=== PATIENT | female | born 1965 | race Caucasian/White ===

== ENCOUNTER → 2017-12-23 08:52 | Outpatient (REF) | payer MEDICARE, MEDICAID, SELFPAY ==
[2017-12-23 13:44] LABS: Basophils # 0.1 K/mm3 (0-0.2); Basophils % 0.5 % (0.1-2.0); Eosinophils # 0.2 K/mm3 (0.0-0.4); Eosinophils % 1.8 % (0.1-12.0); Hematocrit 43.2 % (37.0-47.0); Hemoglobin 13.9 g/dL (12.2-16.2); Lymphocytes # 2.4 K/mm3 (0.7-4.5); Lymphocytes % 25.2 K/mm3 (10-50); Mean Corpuscular HGB Conc 32.1 g/dL (31.8-35.4); Mean Corpuscular Hemoglobin 30.3 pg (27.0-31.2); Mean Corpuscular Volume 94.4 fl (81-99); Monocytes # 0.5 K/mm3 (0.1-1.0); Monocytes % 5.5 % (1.7-9.3); Neutrophils # 6.3 K/mm3 (1.8-7.8); Neutrophils % 66.9 % (37.0-80.0); Platelet Count 260 K/mm3 (142-424); Red Blood Count 4.57 M/mm3 (4.20-5.40); Red Cell Distribution Width 12.8 % (11.5-17.5); White Blood Count 9.5 K/mm3 (4.8-10.8)
[2017-12-23 14:18] LABS: Hemoglobin A1C 8.1 % (0.0-7.0)
[2017-12-23 14:23] LABS: Alanine Aminotransferase 22 U/L (12-78); Albumin Level 3.5 gm/dL (3.4-5.0); Albumin/Globulin Ratio 0.9 (1.1-1.8); Alkaline Phosphatase 100 U/L (46-116); Anion Gap 11.3 mEq/L (5-15); Aspartate Amino Transferase 13 U/L (15-37); Bilirubin,Total 0.3 mg/dL (0.2-1.0); Blood Urea Nitrogen 16 mg/dL (7-18); Calcium 9.3 mg/dL (8.5-10.1); Carbon Dioxide 32 mmol/L (21.0-32.0); Chloride 101 mmol/L (98-107); Chol/HDL Ratio 3.1 (1-3.5); Cholesterol 178 mg/dL (140-200); Creatinine,Serum 0.62 mg/dL (0.55-1.02); Estimated Glomerular Filt Rate 101 ml/min (>60); GFR (African American) 122 ML/MIN (>60); Globulin 3.7 gm/dl (1.3-3.2); Glucose 131 mg/dL (74-106); HDL Cholesterol 57 mg/dL (29-89); LDL Cholesterol 89 mg/dL (0-130); Potassium 4.3 mmoL/L (3.5-5.1); Sodium 140 mmol/L (136-145); Thyroid Stimulating Hormone 3.47 uIU/ml (0.358-3.740); Total Protein,Serum 7.2 gm/dL (6.4-8.2); Triglycerides 158 mg/dL (30-200); VLDL Cholesterol 32 mg/dL (0-40)
[2017-12-26 12:03] LABS: Vitamin D 25 Hydroxy 26.2 ng/mL (30.0-100.0)
== END ==
LOC: LAB 08:52
PROVIDERS: Visit Provider Physician Assistant
DX: E11.9 Type 2 diabetes mellitus without complications (principal); I77.9 Disorder of arteries and arterioles, unspecified; F41.9 Anxiety disorder, unspecified; E55.9 Vitamin D deficiency, unspecified; E78.5 Hyperlipidemia, unspecified
CPT/HCPCS: 80053; 80061; 82652; 83036; 84436; 84443; 85025

== ENCOUNTER → 2018-05-27 15:00 | Outpatient (CLI) | payer MEDICARE, MEDICAID, SELFPAY ==
--- NOTE | 2018-05-27 15:36 | XR_ITS ---
EXAM: XR lumbar spine min 4V HISTORY: Patient fell ITS.REASON: Fall; LBP ORDERING PHYSICIAN: KEYLA Ochoa PATIENT AGE: 52 years COMPARISON: Lumbar spine 08/23/2010 FINDINGS: There is normal curvature and alignment. L1-L5 appear intact. There is disc space narrowing at L5-S1 level with mild anterior and posterior ossific spurring. The remaining disc spaces appear normal. There is no pars defect. The SI joints are normal. There is arteriosclerotic calcification of the abdominal aorta but there is no aneurysm. There is mild spurring of the sacrococcygeal junction. IMPRESSION: Mild degenerative disc disease L5-S1, otherwise essentially unremarkable study.
--- NOTE | 2018-05-27 15:36 | XR_ITS ---
XR chest 2V HISTORY: ITS.REASON: Smoker ORDERING PHYSICIAN: KEYLA Ochoa PATIENT AGE: 52 years COMPARISON: Portable upright chest 05/16/2016 FINDINGS: The cardiomediastinal silhouette and pulmonary vascularity are within normal limits. The lungs are clear without infiltrates, suspicious nodules, or pleural effusions. No acute bony abnormalities. IMPRESSION: Negative chest, no acute finding
[2018-05-27 17:42] LABS: Basophils # 0.1 K/mm3 (0-0.2); Basophils % 0.5 % (0.1-2.0); Eosinophils # 0.2 K/mm3 (0.0-0.4); Eosinophils % 2.5 % (0.1-12.0); Hematocrit 43.1 % (37.0-47.0); Hemoglobin 13.7 g/dL (12.2-16.2); Lymphocytes # 2.3 K/mm3 (0.7-4.5); Lymphocytes % 24.6 K/mm3 (10-50); Mean Corpuscular HGB Conc 31.8 g/dL (31.8-35.4); Mean Corpuscular Volume 94.2 fl (81-99); Mean Platelet Volume 9.1 fl (7.4-10.4); Monocytes # 0.4 K/mm3 (0.1-1.0); Monocytes % 4.7 % (1.7-9.3); Neutrophils # 6.3 K/mm3 (1.8-7.8); Neutrophils % 67.7 % (37.0-80.0); Platelet Count 287 K/mm3 (142-424); Red Blood Count 4.58 M/mm3 (4.20-5.40); Red Cell Distribution Width 13.5 % (11.5-17.5); White Blood Count 9.3 K/mm3 (4.8-10.8)
[2018-05-27 18:33] LABS: Alanine Aminotransferase 21 U/L (12-78); Albumin Level 3.4 gm/dL (3.4-5.0); Albumin/Globulin Ratio 0.9 (1.1-1.8); Alkaline Phosphatase 112 U/L (46-116); Anion Gap 10.9 mEq/L (5-15); Aspartate Amino Transferase 16 U/L (15-37); Bilirubin,Total 0.4 mg/dL (0.2-1.0); Blood Urea Nitrogen 18 mg/dL (7-18); Carbon Dioxide 31 mmol/L (21.0-32.0); Chloride 101 mmol/L (98-107); Chol/HDL Ratio 3.1 (1-3.5); Cholesterol 179 mg/dL (140-200); Creatinine,Serum 0.75 mg/dL (0.55-1.02); Estimated Glomerular Filt Rate 81 ml/min (>60); GFR (African American) 98 ML/MIN (>60); Globulin 3.8 gm/dl (1.3-3.2); Glucose 167 mg/dL (74-106); HDL Cholesterol 57 mg/dL (29-89); LDL Cholesterol 100 mg/dL (0-130); Potassium 3.9 mmoL/L (3.5-5.1); Sodium 139 mmol/L (136-145); T4 (Thyroxine) 7.7 ug/dl (4.7-13.3); Thyroid Stimulating Hormone 1.69 uIU/ml (0.358-3.740); Total Protein,Serum 7.2 gm/dL (6.4-8.2); Triglycerides 112 mg/dL (30-200); VLDL Cholesterol 22 mg/dL (0-40)
[2018-05-27 19:44] LABS: Hemoglobin A1C 8.9 % (0.0-7.0)
[2018-05-29 17:09] LABS: Vitamin D 25 Hydroxy 21.6 ng/mL (30.0-100.0)
== END ==
PROVIDERS: PCP Physician Assistant; Visit Provider Physician Assistant
DX: R09.02 Hypoxemia (principal); E11.40 Type 2 diabetes mellitus with diabetic neuropathy, unspecified; E11.9 Type 2 diabetes mellitus without complications; F17.200 Nicotine dependence, unspecified, uncomplicated; M54.5 Low back pain
CPT/HCPCS: 71046; 72110; 80053; 80061; 82652; 83036; 84436; 84443; 85025

== ENCOUNTER → 2018-09-02 13:31 | Outpatient (REF) | payer MEDICARE, MEDICAID, SELFPAY ==
[2018-09-02 14:01] LABS: Alanine Aminotransferase 20 U/L (12-78); Albumin Level 3.3 gm/dL (3.4-5.0); Albumin/Globulin Ratio 0.9 (1.1-1.8); Alkaline Phosphatase 122 U/L (46-116); Anion Gap 11.4 mEq/L (5-15); Aspartate Amino Transferase 17 U/L (15-37); Bilirubin,Total 0.3 mg/dL (0.2-1.0); Blood Urea Nitrogen 23 mg/dL (7-18); Calcium 8.9 mg/dL (8.5-10.1); Carbon Dioxide 33 mmol/L (21.0-32.0); Chloride 99 mmol/L (98-107); Chol/HDL Ratio 3.2 (1-3.5); Cholesterol 200 mg/dL (140-200); Creatinine,Serum 0.93 mg/dL (0.55-1.02); Estimated Glomerular Filt Rate 63 ml/min (>60); Free T4 (Free Thyroxine) 1.03 ng/dl (0.76-1.46); GFR (African American) 77 ML/MIN (>60); Globulin 3.8 gm/dl (1.3-3.2); Glucose 172 mg/dL (74-106); HDL Cholesterol 62 mg/dL (29-89); LDL Cholesterol 118 mg/dL (0-130); Potassium 4.4 mmoL/L (3.5-5.1); Sodium 139 mmol/L (136-145); Thyroid Stimulating Hormone 3.25 uIU/ml (0.358-3.740); Total Protein,Serum 7.1 gm/dL (6.4-8.2); Triglycerides 99 mg/dL (30-200); VLDL Cholesterol 20 mg/dL (0-40)
[2018-09-02 14:22] LABS: Basophils # 0.1 K/mm3 (0-0.2); Basophils % 0.7 % (0.1-2.0); Eosinophils # 0.3 K/mm3 (0.0-0.4); Eosinophils % 2.7 % (0.1-12.0); Hematocrit 41.2 % (37.0-47.0); Hemoglobin 13.3 g/dL (12.2-16.2); Lymphocytes # 1.6 K/mm3 (0.7-4.5); Lymphocytes % 17.8 K/mm3 (10-50); Mean Corpuscular HGB Conc 32.4 g/dL (31.8-35.4); Mean Corpuscular Hemoglobin 31.4 pg (27.0-31.2); Mean Corpuscular Volume 96.9 fl (81-99); Mean Platelet Volume 8.9 fl (7.4-10.4); Monocytes # 0.4 K/mm3 (0.1-1.0); Monocytes % 3.8 % (1.7-9.3); Neutrophils # 6.9 K/mm3 (1.8-7.8); Neutrophils % 74.9 % (37.0-80.0); Platelet Count 298 K/mm3 (142-424); Red Blood Count 4.26 M/mm3 (4.20-5.40); Red Cell Distribution Width 13.8 % (11.5-17.5); White Blood Count 9.1 K/mm3 (4.8-10.8)
[2018-09-04 06:44] LABS: Vitamin D 25 Hydroxy 30.7 ng/mL (30.0-100.0)
== END ==
LOC: LAB 13:31
PROVIDERS: PCP Physician Assistant; Visit Provider Physician Assistant
DX: E11.40 Type 2 diabetes mellitus with diabetic neuropathy, unspecified (principal); I83.93 Asymptomatic varicose veins of bilateral lower extremities
CPT/HCPCS: 80053; 80061; 82652; 83036; 84439; 84443; 85025

== ENCOUNTER → 2018-09-08 12:50 | Outpatient (POV) | payer MEDICARE, MEDICAID, SELFPAY | PROVIDERS: Visit Provider Internal Medicine | DX: Z00.00 Encounter for general adult medical examination without abnormal findings (principal) ==

== ENCOUNTER → 2018-10-28 08:58 | Outpatient (CLI) | payer MEDICARE, MEDICAID, SELFPAY ==
--- NOTE | 2018-10-28 09:04 | CT_ITS ---
CT chest wo con HISTORY: Cough, dark-colored productive cough, COPD, smoker ITS.REASON: CHRONIC BRONCHITIS,DYSPNEA,HEMOPTYSIS ORDERING PHYSICIAN: Maico Valentino MD PATIENT AGE: 52 years COMPARISON: None Technique: Axial images obtained with sagittal and coronal reformats. All CT scans at the facility use one or more dose reduction, viz: automated exposure control, ma/kV adjustment per patient size (including targeted exams where dose is matched to indication, i.e. head), or iterative reconstruction technique. FINDINGS: There is a 2 cm isodense nodule along the lower pole of the right lobe of the thyroid gland which may be better byway with ultrasound. There is extensive coronary artery calcification. No mediastinal or hilar mass or adenopathy is evident. No evidence of aortic aneurysm. 4 mm noncalcified nodule right lung base posteriorly image #57. There are scattered calcified granulomas. No suspicious pulmonary nodules. There is mild diffuse bronchial thickening. No effusions or infiltrates. Upper abdominal images are unremarkable. No acute bony anomalies. There is mild wedging of T7 and T8 which appears chronic. There are degenerative changes in the thoracic spine. IMPRESSION: 1. Mild diffuse bronchial thickening consistent with chronic bronchitis. 2. No suspicious pulmonary nodules. There is a 4 mm noncalcified nodule in the right lung base posteriorly. 3. Extensive coronary artery calcification. 4. 2 cm right-sided thyroid nodule which may be better evaluated with ultrasound
[2018-10-28 10:35] VITALS: PULSE 68; PULSE 70
[2018-10-28 10:55] VITALS: BP 130/88; BP 150/85; PULSE 68; PULSE 86; RESP 14; RESP 20; O2SAT 94; O2SAT 95
== END ==
PROVIDERS: PCP Physician Assistant; Visit Provider Internal Medicine
DX: R06.09 Other forms of dyspnea (principal); R04.2 Hemoptysis; J42 Unspecified chronic bronchitis
CPT/HCPCS: 71250; 94060; 94618; 94640; 94727; 94729

== ENCOUNTER → 2018-11-17 10:59 | Outpatient (CLI) | payer MEDICARE, MEDICAID, SELFPAY ==
--- NOTE | 2018-11-17 11:04 | US_ITS ---
US thyroid HISTORY: Right thyroid nodule ITS.REASON: thyroid nodule ORDERING PHYSICIAN: KEYLA Ochoa PATIENT AGE: 52 years Comparison: 10/28/2018 FINDINGS: The right lobe measures 4.9-4 0.9 x 1.7 cm. There is a slightly hypoechoic nodule in the mid polar region at 7 x 10 mm. This shows increased echogenicity anteriorly consistent with partial calcification of the anterior wall. There is a 15 x 15 mm isoechoic nodule in the lower lobe with peripheral rim of decreased echogenicity corresponding to the CT abnormality. The left lobe is 4.1 x 1.4 x 1.7 cm. There is a 4 mm hypoechoic nodule in the mid polar region. There is heterogeneous echogenicity of the left lobe. There is a 2.2 x 1.1 cm slightly hypoechoic nodule in the lower pole on the left. IMPRESSION: 1. Enlarged right lobe of the thyroid gland with 2 nodules apparent largest in the lower pole 15 mm. 2. 2.2 x 1.1 cm hypoechoic nodule in the lower pole of the left lobe. Biopsy of these nodules would be difficult due to patient's body habitus. Therefore a nuclear thyroid scan is suggested to determine if these nodules are hypoechoic or hyperreactive. If hypoactive, then biopsy may be planned accordingly
== END ==
PROVIDERS: PCP Physician Assistant; Visit Provider Physician Assistant
DX: E04.1 Nontoxic single thyroid nodule (principal)
CPT/HCPCS: 76536

== ENCOUNTER → 2018-12-01 11:28 | Outpatient (POV) | payer MEDICARE, MEDICAID, SELFPAY | PROVIDERS: Visit Provider Internal Medicine | DX: Z00.00 Encounter for general adult medical examination without abnormal findings (principal) ==

== ENCOUNTER → 2018-12-02 07:01 | Outpatient (CLI) | payer MEDICARE, MEDICAID, SELFPAY ==
--- NOTE | 2018-12-02 07:02 | NM_ITS ---
NM thyroid image uptake CLINICAL INDICATION: ITS.REASON: thyroid nodules/ pt need morning appt ORDERING PHYSICIAN: KEYLA Ochoa PATIENT AGE: 52 years Comparison: 11/17/2018 DOSE: 344 uCi I-123 orally FINDINGS: The 25 hour radioiodine uptake is 32.6%. Normal is 10-35%. Images obtained enlarged gland on the right with decrease activity in the central and lower pole on the right. This would correspond to the dominant nodule in the right lobe indicating a hypoactive nodule.. Fine-needle aspiration is therefore recommended of the right lower pole nodule There is normal activity on the left with normal size left lobe. The abnormality noted on ultrasound millimeters heterogeneous echogenicity and can be reexamined when the patient returns for biopsy IMPRESSION: Right lower pole nodule seen on the ultrasound and CT scan represents a hypoactive nodule. Fine-needle aspiration therefore recommended
[2018-12-02 14:45] LABS: Basophils # 0.1 K/mm3 (0-0.2); Basophils % 0.5 % (0.1-2.0); Eosinophils # 0.2 K/mm3 (0.0-0.4); Eosinophils % 1.4 % (0.1-12.0); Hematocrit 44.8 % (37.0-47.0); Hemoglobin 14.1 g/dL (12.2-16.2); Mean Corpuscular HGB Conc 31.5 g/dL (31.8-35.4); Mean Corpuscular Hemoglobin 30.1 pg (27.0-31.2); Mean Corpuscular Volume 95.5 fl (81-99); Mean Platelet Volume 9.2 fl (7.4-10.4); Monocytes # 0.5 K/mm3 (0.1-1.0); Monocytes % 4.3 % (1.7-9.3); Neutrophils % 74.7 % (37.0-80.0); Platelet Count 271 K/mm3 (142-424); Red Blood Count 4.69 M/mm3 (4.20-5.40); Red Cell Distribution Width 13.4 % (11.5-17.5); White Blood Count 10.7 K/mm3 (4.8-10.8)
[2018-12-02 14:56] LABS: Alanine Aminotransferase 23 U/L (12-78); Albumin Level 3.3 gm/dL (3.4-5.0); Albumin/Globulin Ratio 0.8 (1.1-1.8); Alkaline Phosphatase 118 U/L (46-116); Anion Gap 14.4 mEq/L (5-15); Aspartate Amino Transferase 12 U/L (15-37); Bilirubin,Total 0.2 mg/dL (0.2-1.0); Blood Urea Nitrogen 16 mg/dL (7-18); Calcium 8.7 mg/dL (8.5-10.1); Carbon Dioxide 31 mmol/L (21.0-32.0); Chloride 95 mmol/L (98-107); Chol/HDL Ratio 4.2 (1-3.5); Cholesterol 219 mg/dL (140-200); Creatinine,Serum 0.85 mg/dL (0.55-1.02); Estimated Glomerular Filt Rate 70 ml/min (>60); GFR (African American) 85 ML/MIN (>60); Globulin 4.2 gm/dl (1.3-3.2); Glucose 334 mg/dL (74-106); HDL Cholesterol 52 mg/dL (29-89); LDL Cholesterol 133 mg/dL (0-130); Potassium 3.4 mmoL/L (3.5-5.1); Sodium 137 mmol/L (136-145); T4 (Thyroxine) 9.5 ug/dl (4.7-13.3); Thyroid Stimulating Hormone 2.71 uIU/ml (0.358-3.740); Total Protein,Serum 7.5 gm/dL (6.4-8.2); Triglycerides 171 mg/dL (30-200); VLDL Cholesterol 34 mg/dL (0-40)
[2018-12-02 15:30] LABS: Hemoglobin A1C 9.9 % (0.0-7.0)
== END ==
PROVIDERS: PCP Physician Assistant; Visit Provider Physician Assistant
DX: E04.1 Nontoxic single thyroid nodule (principal); E11.40 Type 2 diabetes mellitus with diabetic neuropathy, unspecified; E07.9 Disorder of thyroid, unspecified; E78.49 Other hyperlipidemia; I25.10 Atherosclerotic heart disease of native coronary artery without angina pectoris; Z79.4 Long term (current) use of insulin; Z72.0 Tobacco use
CPT/HCPCS: 78014; 80053; 80061; 82043; 82570; 82652; 83036; 84436; 84443; 85025; A9516

== ENCOUNTER → 2018-12-02 13:32 | Outpatient (CLI) | payer MEDICARE, MEDICAID, SELFPAY | PROVIDERS: Visit Provider Physician Assistant | DX: E07.9 Disorder of thyroid, unspecified (principal); E11.9 Type 2 diabetes mellitus without complications | CPT/HCPCS: 80053; 80061; 82043; 82570; 82652; 83036; 84436; 84443; 85025 ==

== ENCOUNTER → 2018-12-10 08:00 | Outpatient (CLI) | payer MEDICARE, MEDICAID, SELFPAY ==
--- NOTE | 2018-12-10 08:03 | US_ITS ---
US Arterial Ankle Brachial Ind History: Peripheral artery disease, rest pain, claudication, ulceration of the right great toe ORDERING PHYSICIAN: Yasmani Contreras MD PATIENT AGE: 52 years TECHNIQUE: Segmental pressures obtained of both right and left leg. These are compared to brachial blood pressure to yield index at each level sampled including summary NICOLAS. The data sheets from the procedure are available in PACS FINDINGS Rest study only performed today No prior studies available for comparison. Blood pressures reported are in millimeters mercury. RIGHT LEG NICOLAS = .6. RIGHT LEG TBI=.5 Brachial BP: 141 Thigh BP: 160 Calf BP: 116 Ankle PT: 104 Ankle DP : 85 Digit =82 LEFT LEG NICOLAS = .5 LEFT LEG TBI= na Brachial BPD: 153 Thigh BP: 60 Calf BP: 85 Ankle PT:72 Ankle DP: 72 Digit = na Pulses and waveforms: Diminished pulses and waveforms IMPRESSION: Low ABIs consistent with moderate peripheral artery disease Significant decrease in the left thigh pressure suggesting a stenosis of the iliac, common femoral or proximal superficial femoral artery
[2018-12-10 10:32] LABS: Alanine Aminotransferase 19 U/L (12-78); Alkaline Phosphatase 117 U/L (46-116); Aspartate Amino Transferase 19 U/L (15-37); Bilirubin,Direct 0.1 mg/dL (0.0-0.2); Bilirubin,Indirect 0.2 mg/dL (0.0-0.9); Bilirubin,Total 0.3 mg/dL (0.2-1.0); Cholesterol 226 mg/dL (140-200); HDL Cholesterol 45 mg/dL (29-89); LDL Cholesterol 151 mg/dL (0-130); Triglycerides 151 mg/dL (30-200); VLDL Cholesterol 30 mg/dL (0-40)
[2018-12-12 12:57] LABS: Thyroid Peroxidase Antibodies 20 IU/mL (0-34)
[2018-12-12 19:31] LABS: Calcium, Ionized 5.1 mg/dL (4.5-5.6)
== END ==
PROVIDERS: Nurse Practitioner Family; Otolaryngology; PCP Emergency Medicine; Visit Provider Internal Medicine
DX: I73.9 Peripheral vascular disease, unspecified (principal); E11.42 Type 2 diabetes mellitus with diabetic polyneuropathy; E78.49 Other hyperlipidemia; I11.9 Hypertensive heart disease without heart failure; I25.10 Atherosclerotic heart disease of native coronary artery without angina pectoris; E01.0 Iodine-deficiency related diffuse (endemic) goiter
CPT/HCPCS: 36415; 80061; 80076; 82330; 86376; 93922

== ENCOUNTER → 2018-12-24 12:03 | Outpatient (CLI) | payer MEDICARE, MEDICAID, SELFPAY ==
--- NOTE | 2018-12-24 12:05 | NVE_ITS ---
Venous Exam Indications: 729.5 Pain in limb. 729.81 Swelling of limb. IMPRESSIONS 1. There is no evidence of significant Reflux. 2. No evidence of deep or superficial vein thrombosis involving the left lower extremity Left lower extremity venous duplex evaluation. Doppler flow study including spectral analysis, color and moss scale imaging. Location: Vascular laboratory. Patient status: Outpatient. CRITICAL FINDINGS - Reported to: ZULY - Read back and verified. - 12/24/18 - 1230 - NONE Tables: Venous flow and imaging: + +-------+ + Location Overall Flow properties + +-------+ + Left common femoral Patent Normal phasicity; spontaneous; normal augmentation; compressible + +-------+ + Left saphenofemoral junction Patent Compressible + +-------+ + Left profunda femoral Patent Compressible + +-------+ + Left femoral Patent Normal phasicity; spontaneous; normal augmentation; compressible + +-------+ + Left greater saphenous Patent Normal phasicity; spontaneous; normal augmentation; compressible + +-------+ + Left popliteal Patent Normal phasicity; spontaneous; normal augmentation; compressible + +-------+ + Left posterior tibial Patent Compressible + +-------+ + Left peroneal Patent Compressible + +-------+ + Left gastrocnemius Patent Compressible + +-------+ + Left soleal Patent Compressible + +-------+ + (Report amended ) Electronically signed by: Jamison Jj [id number]
== END ==
PROVIDERS: PCP Physician Assistant; Visit Provider Internal Medicine Cardiovascular Disease
DX: E11.42 Type 2 diabetes mellitus with diabetic polyneuropathy (principal); F17.200 Nicotine dependence, unspecified, uncomplicated; I11.9 Hypertensive heart disease without heart failure; I25.10 Atherosclerotic heart disease of native coronary artery without angina pectoris; I73.9 Peripheral vascular disease, unspecified; I77.9 Disorder of arteries and arterioles, unspecified; I83.813 Varicose veins of bilateral lower extremities with pain; J44.1 Chronic obstructive pulmonary disease with (acute) exacerbation; M79.605 Pain in left leg; M79.89 Other specified soft tissue disorders; R06.02 Shortness of breath; E78.49 Other hyperlipidemia
CPT/HCPCS: 93971

== ENCOUNTER → 2019-01-19 10:22 | Outpatient (CLI) | payer MEDICARE, MEDICAID, SELFPAY ==
--- NOTE | 2019-01-19 10:27 | US_ITS ---
FNA w guidance Thyroid ultrasound HISTORY: Cold nodule in the right lobe of the thyroid gland ITS.REASON: RT THYROID NODULE ORDERING PHYSICIAN: Oz Giang MD PATIENT AGE: 53 years COMPARISON: 11/17/2018, 12/02/2018 Prebiopsy ultrasound: Prebiopsy ultrasound confirms presence of a solid nodule in the lower pole on the right which correspond to the cold nodule on the thyroid scan. On the previous ultrasound there was a question of a nodule on the lower pole on the left. This area is once again noted and is isoechoic in nature. It is uncertain whether this represents medially some heterogeneous echogenicity of the thyroid gland or a true nodule. Consider follow-up CT of the neck without and with contrast for further evaluation and clarification. TECHNIQUE: Following obtaining informed consent, using aseptic technique and local anesthesia with buffered lidocaine, fine-needle aspiration was performed of the nodule of interest in the right lobe using sonographic guidance. 3 passes were made into the nodule with a 25-gauge needle. Specimen was given to cytology. The patient tolerated the procedure well without evidence of immediate complications and left the ultrasound suite in stable condition. CYTOLOGY:Negative for malignancy, consistent with benign follicular nodule IMPRESSION: 1. Uneventful and successful ultrasound-guided fine-needle aspiration of the right lobe of the thyroid gland showing benign findings. 2. Persistent nodularity of the mid and lower pole of the left lobe of the thyroid gland. It is uncertain whether this represents a true nodule versus heterogeneous echogenicity. Recommend CT of the neck without and with contrast for further clarification
== END ==
PROVIDERS: PCP Physician Assistant; Visit Provider Otolaryngology
DX: E01.0 Iodine-deficiency related diffuse (endemic) goiter (principal)
CPT/HCPCS: 10005; 88173

== ENCOUNTER → 2019-01-28 15:53 | Outpatient (CLI) | payer MEDICARE, MEDICAID, SELFPAY ==
[2019-01-28 17:01] LABS: Free T4 (Free Thyroxine) 0.97 ng/dl (0.76-1.46); Thyroid Stimulating Hormone 2.35 uIU/ml (0.358-3.740)
[2019-02-01 08:19] LABS: Thyroid Peroxidase Antibodies 11 IU/mL (0-34)
[2019-02-01 08:25] LABS: Calcitonin <2.0 pg/mL (0.0-5.0)
[2019-02-02 06:47] LABS: Thyroid Stimulating Immunoglob <0.10 IU/L (0.00-0.55)
== END ==
PROVIDERS: Visit Provider Otolaryngology
DX: E03.9 Hypothyroidism, unspecified (principal)
CPT/HCPCS: 36415; 82308; 84439; 84443; 84445; 86376

== ENCOUNTER → 2019-02-18 11:06 | Outpatient (CLI) | payer MEDICARE, MEDICAID, SELFPAY ==
[2019-02-18 11:24] LABS: Basophils % 0.6 % (0.1-2.0); Eosinophils # 0.2 K/mm3 (0.0-0.4); Eosinophils % 3.3 % (0.1-12.0); Hematocrit 43.5 % (37.0-47.0); Hemoglobin 14.1 g/dL (12.2-16.2); Lymphocytes # 2.1 K/mm3 (0.7-4.5); Mean Corpuscular HGB Conc 32.4 g/dL (31.8-35.4); Mean Corpuscular Hemoglobin 29.4 pg (27.0-31.2); Mean Corpuscular Volume 90.6 fl (81-99); Mean Platelet Volume 8.6 fl (7.4-10.4); Monocytes # 0.4 K/mm3 (0.1-1.0); Monocytes % 5.9 % (1.7-9.3); Neutrophils # 4.2 K/mm3 (1.8-7.8); Neutrophils % 60.2 % (37.0-80.0); Platelet Count 250 K/mm3 (142-424); Red Cell Distribution Width 14.1 % (11.5-17.5); White Blood Count 6.9 K/mm3 (4.8-10.8)
[2019-02-18 12:22] LABS: Alanine Aminotransferase 22 U/L (12-78); Albumin Level 3.2 gm/dL (3.4-5.0); Albumin/Globulin Ratio 0.7 (1.1-1.8); Alkaline Phosphatase 138 U/L (46-116); Anion Gap 15.7 mEq/L (5-15); Aspartate Amino Transferase 17 U/L (15-37); Bilirubin,Total 0.2 mg/dL (0.2-1.0); Blood Urea Nitrogen 17 mg/dL (7-18); Calcium 9.2 mg/dL (8.5-10.1); Carbon Dioxide 29 mmol/L (21.0-32.0); Chloride 96 mmol/L (98-107); Creatinine,Serum 0.74 mg/dL (0.55-1.02); Estimated Glomerular Filt Rate 82 ml/min (>60); GFR (African American) 99 ML/MIN (>60); Globulin 4.6 gm/dl (1.3-3.2); Glucose 242 mg/dL (74-106); Potassium 4.7 mmoL/L (3.5-5.1); Sodium 136 mmol/L (136-145); Total Protein,Serum 7.8 gm/dL (6.4-8.2)
== END ==
PROVIDERS: Visit Provider Otolaryngology
DX: Z01.810 Encounter for preprocedural cardiovascular examination (principal)
CPT/HCPCS: 36415; 80053; 85025

== ENCOUNTER → 2019-03-18 11:21 | Outpatient (CLI) | payer MEDICARE, MEDICAID, SELFPAY ==
[2019-03-18 13:36] LABS: Free T4 (Free Thyroxine) 1.27 ng/dl (0.76-1.46); Thyroid Stimulating Hormone 2.57 uIU/ml (0.358-3.740)
== END ==
PROVIDERS: Visit Provider Otolaryngology
DX: D49.7 Neoplasm of unspecified behavior of endocrine glands and other parts of nervous system (principal); Z98.890 Other specified postprocedural states
CPT/HCPCS: 36415; 84439; 84443

== ENCOUNTER → 2019-07-21 17:59 | Outpatient (CLI) | payer MEDICARE, MEDICAID, SELFPAY ==
[2019-07-21 18:26] LABS: Basophils # 0.1 K/mm3 (0-0.2); Basophils % 0.6 % (0.1-2.0); Eosinophils # 0.2 K/mm3 (0.0-0.4); Eosinophils % 1.9 % (0.1-12.0); Hematocrit 44.7 % (37.0-47.0); Hemoglobin 14.6 g/dL (12.2-16.2); Lymphocytes # 2.8 K/mm3 (0.7-4.5); Lymphocytes % 33.4 % (10-50); Mean Corpuscular HGB Conc 32.6 g/dL (31.8-35.4); Mean Corpuscular Volume 95.2 fl (81-99); Mean Platelet Volume 9.4 fl (7.4-10.4); Monocytes # 0.4 K/mm3 (0.1-1.0); Monocytes % 5.1 % (1.7-9.3); Neutrophils # 4.9 K/mm3 (1.8-7.8); Platelet Count 320 K/mm3 (142-424); Red Blood Count 4.69 M/mm3 (4.20-5.40); Red Cell Distribution Width 14.8 % (11.5-17.5); White Blood Count 8.3 K/mm3 (4.8-10.8)
[2019-07-21 18:47] LABS: Alanine Aminotransferase 30 U/L (12-78); Albumin Level 3.1 gm/dL (3.4-5.0); Albumin/Globulin Ratio 0.8 (1.1-1.8); Alkaline Phosphatase 103 U/L (46-116); Anion Gap 13.8 mEq/L (5-15); Aspartate Amino Transferase 32 U/L (15-37); Bilirubin,Total 0.3 mg/dL (0.2-1.0); Blood Urea Nitrogen 19 mg/dL (7-18); Calcium 9.1 mg/dL (8.5-10.1); Carbon Dioxide 30 mmol/L (21.0-32.0); Chloride 97 mmol/L (98-107); Chol/HDL Ratio 5.5 (1-3.5); Cholesterol 264 mg/dL (140-200); Creatinine,Serum 0.98 mg/dL (0.55-1.02); Estimated Glomerular Filt Rate 59 ml/min (>60); GFR (African American) 72 ML/MIN (>60); Glucose 347 mg/dL (74-106); HDL Cholesterol 48 mg/dL (29-89); LDL Cholesterol 168 mg/dL (0-130); Potassium 3.8 mmoL/L (3.5-5.1); Sodium 137 mmol/L (136-145); T4 (Thyroxine) 7.5 ug/dl (4.7-13.3); Thyroid Stimulating Hormone 10.13 uIU/ml (0.358-3.740); Total Protein,Serum 7.1 gm/dL (6.4-8.2); Triglycerides 238 mg/dL (30-200); VLDL Cholesterol 48 mg/dL (0-40)
[2019-07-21 18:53] LABS: Hemoglobin A1C 10.8 % (0.0-7.0)
[2019-07-23 10:10] LABS: Vitamin D 25 Hydroxy 11.7 ng/mL (30.0-100.0)
== END ==
PROVIDERS: Visit Provider Physician Assistant
DX: E11.9 Type 2 diabetes mellitus without complications (principal); E78.5 Hyperlipidemia, unspecified; E55.9 Vitamin D deficiency, unspecified; Z79.4 Long term (current) use of insulin; Z79.84 Long term (current) use of oral hypoglycemic drugs
CPT/HCPCS: 80053; 80061; 82652; 83036; 84436; 84443; 85025

== ENCOUNTER 2019-11-08 13:03 | Outpatient (RCR) | payer MEDICARE, SELFPAY ==
--- NOTE | 2019-11-08 14:24 | [facility].PTOPWND ---
Rehab Outpt Wound Evaluation Rehab OP Wound Evaluation Start: 11/08/19 13:10 Freq: Status: Active Protocol: Document 11/08/19 14:01 PHOCHEL (Rec: 11/08/19 14:23 PHORNE [id number]) Electronically Signed By Home Drew, PT 11/08/19 14:01 Subjective/History History History Pt is 53 yowf who presents with c/o left LE edema x ~ 4-5 wks. She reports increased stress and anxiety lately which preceded a CVA she suffered ~ 2 wks ago with blurry vision and weakness of her right LE. She has hx of severe PAD with left LE stents and angiopathy, as well as, left great toe amputation. She also has hx of COPD, CAD, DM- II, HL, HTN, severe peripheral neuropathy, cardiac stents. Subjective Subjective Pt c/o pain in the left LE 7/ 10 constantly . Pt also reports concern about increased redness in the left foot after her foot was wrapped tightly with coban at her last DPM visit. Lymphedema Eval Classification of Lymphedema Secondary Lymphedema Yes Stemmer's sign Stemmer's Sign no Stage of Lymphedema Lymphedema stages Stage 0 (subjective c/o heaviness and aching) Skin Changes Dry Skin Yes Taut, Shiny Skin Yes Redness Yes Discoloration of Skin Yes Other Changes Yes Pain Scale Pain Scale (0-10) 7 Affected Extremities Areas Affected by Lymphedema/Edema Left Lower Extremity Manual Lymphatic Drainage Treatment Area MLD Treatment Area Left Lower Extremity Wound Problems/Impairments Impairments Problems/Impairmments Palpation Tenderness,Impaired Endurance,Impaired Gait Pattern,Impaired Walking, Impaired Standing,Impaired Household Care,Impaired Recreational Activities, Increased Edema,Lymphedema Present,Subjective C/O Pain, Impaired Self Care/Self Management Prognosis Rehab Potential Fair Clinical Impression Consistent with Diagnosis Yes Short Term Goals
== END 2019-11-08 13:10 | disposition home or self-care (01) ==
LOC: PT 13:03
PROVIDERS: Visit Provider Podiatrist
DX: R60.0 Localized edema (principal)
CPT/HCPCS: 97140; 97163; 97760

== ENCOUNTER → 2019-12-06 13:44 | Outpatient (CLI) | payer MEDICARE, SELFPAY ==
[2019-12-06 14:25] LABS: Basophils # 0.1 K/mm3 (0-0.2); Basophils % 1.1 % (0.1-2.0); Eosinophils # 0.2 K/mm3 (0.0-0.4); Hemoglobin 15.3 g/dL (12.2-16.2); Lymphocytes # 2.4 K/mm3 (0.7-4.5); Lymphocytes % 30.5 % (10-50); Mean Corpuscular HGB Conc 31.9 g/dL (31.8-35.4); Mean Corpuscular Hemoglobin 30.9 pg (27.0-31.2); Mean Corpuscular Volume 96.7 fl (81-99); Mean Platelet Volume 10.1 fl (7.4-10.4); Monocytes # 0.5 K/mm3 (0.1-1.0); Neutrophils # 4.7 K/mm3 (1.8-7.8); Neutrophils % 59.4 % (37.0-80.0); Platelet Count 287 K/mm3 (142-424); Red Blood Count 4.96 M/mm3 (4.20-5.40); Red Cell Distribution Width 12.7 % (11.5-17.5); White Blood Count 7.9 K/mm3 (4.8-10.8)
[2019-12-06 14:27] LABS: Alanine Aminotransferase 16 U/L (12-78); Albumin Level 3.1 gm/dL (3.4-5.0); Albumin/Globulin Ratio 0.8 (1.1-1.8); Alkaline Phosphatase 88 U/L (46-116); Anion Gap 15.3 mEq/L (5-15); Aspartate Amino Transferase 17 U/L (15-37); Bilirubin,Total 0.3 mg/dL (0.2-1.0); Blood Urea Nitrogen 14 mg/dL (7-18); Calcium 9.2 mg/dL (8.5-10.1); Carbon Dioxide 30 mmol/L (21.0-32.0); Chloride 101 mmol/L (98-107); Chol/HDL Ratio 4.8 (1-3.5); Cholesterol 235 mg/dL (140-200); Creatinine,Serum 0.76 mg/dL (0.55-1.02); Estimated Glomerular Filt Rate 80 ml/min (>60); GFR (African American) 96 ML/MIN (>60); Globulin 3.8 gm/dl (1.3-3.2); Glucose 195 mg/dL (74-106); HDL Cholesterol 49 mg/dL (29-89); LDL Cholesterol 150 mg/dL (0-130); Potassium 4.3 mmoL/L (3.5-5.1); Sodium 142 mmol/L (136-145); T4 (Thyroxine) 7.6 ug/dl (4.7-13.3); Thyroid Stimulating Hormone 9.19 uIU/ml (0.358-3.740); Total Protein,Serum 6.9 gm/dL (6.4-8.2); Triglycerides 179 mg/dL (30-200); VLDL Cholesterol 36 mg/dL (0-40)
[2019-12-06 14:55] LABS: Hemoglobin A1C 10.2 % (0.0-7.0)
[2019-12-08 10:47] LABS: Vitamin D 25 Hydroxy 14.7 ng/mL (30.0-100.0)
== END ==
PROVIDERS: Visit Provider Physician Assistant
DX: E11.9 Type 2 diabetes mellitus without complications (principal); Z79.4 Long term (current) use of insulin; E55.9 Vitamin D deficiency, unspecified
CPT/HCPCS: 80053; 80061; 82043; 82652; 83036; 84436; 84443; 85025

== ENCOUNTER → 2019-12-09 10:05 | Outpatient (CLI) | payer MEDICARE, MEDICAID, SELFPAY ==
--- NOTE | 2019-12-09 10:07 | US_ITS ---
APPROVED REPORT Exam Type: Ankle to Brachial Index Coating Manager: Callie Hernandez, ATTENUATOR Indications Non-healing Ulcer: PAD Current Smoker Risk Factors Hypertension CAD Hyperlipidemia Obesity Diabetes Current Smoker Surgery/Intervention STENT RIGHT SFA 01-08-19 LEFT GREAT TOE AMPUTATED, NON HEALING ULCER ON 2ND AND 3RD TOE. Pressures/Indices Right Indices Left Indices Brachial 151.00 mmHg Brachial 143.00 mmHg Low Thigh 148.00 mmHg 0.98 Low Thigh 80.00 mmHg 0.53 Calf 121.00 mmHg 0.80 Calf 14.00 mmHg 0.09 Ankle(PT) 103.00 mmHg 0.68 Ankle(PT) 20.00 mmHg 0.13 Ankle(DP) 95.00 mmHg 0.63 Ankle(DP) 31.00 mmHg 0.21 Digit 89.00 mmHg 0.59 Digit 11.00 mmHg 0.07 Findings RIGHT NICOLAS 0.6 RIGHT TBI 0.6 LEFT NICOLAS 0.2 LEFT TBI 0.07 DIMINISHED WAVEFORMS AND PULSES Conclusion DIMINISHED WAVEFORMS AND PULSES MODERATE ARTERIAL DISEASE Critical Notification Critical Value: Yes Physician Notified Date: 12/09/2019 Time: 11:14 Physician Name: JOSE JUAN Report Read Back Electronically signed by : Jamison Jj MD 12/10/2019 17:33:45
--- NOTE | 2019-12-09 11:00 | XR_ITS ---
PROCEDURE: XR FOOT WT BEARING LT 3V CLINICAL INDICATION: diabetic toe ulcer COMPARISON: FTL3 FOOT-LT-3 VIEWS from 08/17/2015 FTL3 FOOT-LT-3 VIEWS from 12/28/2015 FTL3 FOOT-LT-3 VIEWS from 05/02/2016 FTL3 FOOT-LT-3 VIEWS from 06/27/2016 FINDINGS: Status post amputation the proximal phalanx of the great toe. Flexion deformity involves the 2nd and 3rd toes. There is a radial lucent defect involving the head of the 2nd metatarsal laterally. This is not appreciated on the old images. This defect is fairly well-circumscribed and measures 5 mm. There is an old fracture of the distal aspect of the 5th metatarsal. And there are degenerative changes in the midfoot with mild pes planus. IMPRESSION: Postsurgical changes with hammertoe deformity of the 2nd 3rd toes. Old 5th metatarsal fracture. Fairly well-circumscribed 5 mm lucent defect in the head of the 2nd metatarsal laterally not readily apparent previously and could be due to an osteolytic defect from osteomyelitis. Please correlate with clinical parameters Dictated by: Jamison Jj MD 12/09/2019 16:42 Electronically signed by Jamison Jj MD in [facility] 12/09/2019 16:42
[2019-12-09 15:46] LABS: C-Reactive Protein 2.1 mg/dL (0.0-0.9)
[2019-12-09 17:28] LABS: Erythrocyte Sedimentation Rate 45 mm/hr (0-30)
== END ==
PROVIDERS: PCP Physician Assistant; Visit Provider Podiatrist
DX: E11.65 Type 2 diabetes mellitus with hyperglycemia (principal); L97.529 Non-pressure chronic ulcer of other part of left foot with unspecified severity; E11.621 Type 2 diabetes mellitus with foot ulcer; I25.10 Atherosclerotic heart disease of native coronary artery without angina pectoris; E78.49 Other hyperlipidemia; Z86.73 Personal history of transient ischemic attack (TIA), and cerebral infarction without residual deficits
CPT/HCPCS: 36415; 73630; 85651; 86140; 87070; 87077; 87186; 87205; 93923

== ENCOUNTER → 2019-12-09 17:30 | Outpatient (CLI) | payer MEDICARE, SELFPAY | PROVIDERS: Visit Provider Podiatrist | DX: L97.523 Non-pressure chronic ulcer of other part of left foot with necrosis of muscle (principal) | CPT/HCPCS: 87070; 87077; 87186; 87205 ==

== ENCOUNTER → 2019-12-27 18:14 | Outpatient (CLI) | payer MEDICARE, MEDICAID, SELFPAY | PROVIDERS: Visit Provider Podiatrist | DX: E11.621 Type 2 diabetes mellitus with foot ulcer (principal); L97.522 Non-pressure chronic ulcer of other part of left foot with fat layer exposed; L97.529 Non-pressure chronic ulcer of other part of left foot with unspecified severity; Z79.4 Long term (current) use of insulin | CPT/HCPCS: 87070; 87077; 87186; 87205 ==

== ENCOUNTER → 2019-12-28 12:11 | Outpatient (CLI) | payer MEDICARE, MEDICAID, SELFPAY ==
--- NOTE | 2019-12-28 12:11 | CT_ITS ---
PROCEDURE: CT FOOT LT WO CON CLINICAL HISTORY: non healing ulcers, OM COMPARISON: No exams were available for comparison TECHNIQUE: Axial images obtained with sagittal and coronal reformats. All CT scans at the facility use one or more dose reduction, viz: automated exposure control, ma/kV adjustment per patient size (including targeted exams where dose is matched to indication, i.e. head), or iterative reconstruction technique. FINDINGS: There is no bony erosion or periosteal reaction specific for osteomyelitis. No acute fracture or dislocation is apparent. There is some contour deformity of the distal 5th metatarsal compatible with old healed fracture. 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 Degenerative dorsal posterior and plantar calcaneal spurs are noted. Increased attenuation is seen in the subcutaneous fat planes extending to the cutaneous surface along the inferior and posterior aspect of the posterior medial calcaneus and inferior to the the 1st metatarsophalangeal joint. There is some increased attenuation to a lesser degree along the plantar aspect of 2nd and 3rd metatarsophalangeal joints. No discrete circumscribed fluid collection suspicious for abscess is apparent via noncontrast exam. No air or opaque foreign body is seen in the soft tissues. IMPRESSION: Generalized soft tissue swelling/edema as described. Cellulitis is not excluded. No findings specific for soft tissue abscess or osteomyelitis. Dictated by: Ronnie Cruz 12/28/2019 13:56 Electronically signed by Ronnie Cruz in [facility] 12/28/2019 13:56
== END ==
PROVIDERS: PCP Physician Assistant; Visit Provider Podiatrist
DX: E11.621 Type 2 diabetes mellitus with foot ulcer (principal); L97.509 Non-pressure chronic ulcer of other part of unspecified foot with unspecified severity; Z79.4 Long term (current) use of insulin
CPT/HCPCS: 73700

== ENCOUNTER → 2020-01-03 12:18 | Outpatient (CLI) | payer MEDICARE, MEDICAID, SELFPAY ==
[2020-01-03 12:47] LABS: Basophils # 0.1 K/mm3 (0-0.2); Basophils % 0.8 % (0.1-2.0); Eosinophils # 0.1 K/mm3 (0.0-0.4); Eosinophils % 1.3 % (0.1-12.0); Hematocrit 46.7 % (37.0-47.0); Hemoglobin 14.8 g/dL (12.2-16.2); Lymphocytes # 2.7 K/mm3 (0.7-4.5); Lymphocytes % 26.1 % (10-50); Mean Corpuscular HGB Conc 31.8 g/dL (31.8-35.4); Mean Corpuscular Hemoglobin 30.9 pg (27.0-31.2); Mean Corpuscular Volume 97.1 fl (81-99); Monocytes # 0.5 K/mm3 (0.1-1.0); Neutrophils # 6.8 K/mm3 (1.8-7.8); Neutrophils % 66.9 % (37.0-80.0); Platelet Count 325 K/mm3 (142-424); White Blood Count 10.2 K/mm3 (4.8-10.8)
--- NOTE | 2020-01-03 12:47 | XR_ITS ---
PROCEDURE: XR CHEST 2V CLINICAL HISTORY: HTN, HX TOBACCO USE, PREOP COMPARISON: CXR CHEST(2 VIEWS-NOT PORTABLE) from 04/25/2016 CXR1 CHEST-PORTABLE from 05/16/2016 CXR2V XR chest 2V from 05/27/2018 [id number] XR ribs RT min 3V w CXR1V from 02/18/2019 FINDINGS: Normal heart size. Coronary artery calcifications are noted. The lungs are clear without infiltrates, suspicious nodules, or pleural effusions. Degenerative changes thoracic spine IMPRESSION: No acute findings. Dictated by: Jamison Jj MD 01/03/2020 13:03 Electronically signed by Jamison Jj MD in [facility] 01/03/2020 13:03
[2020-01-03 13:38] LABS: Erythrocyte Sedimentation Rate 19 mm/hr (0-30)
[2020-01-03 13:56] LABS: Alanine Aminotransferase 15 U/L (12-78); Albumin/Globulin Ratio 1.2 (1.1-1.8); Alkaline Phosphatase 83 U/L (38-126); Anion Gap 11.2 mEq/L (5-15); Aspartate Amino Transferase 31 U/L (14-36); Bilirubin,Total 0.2 mg/dl (0.2-1.3); Blood Urea Nitrogen 18 mg/dl (7-17); Calcium 9.6 mg/dl (8.4-10.2); Carbon Dioxide 35 mmol/L (22.0-30.0); Chloride 98 mmol/L (98-107); Estimated Glomerular Filt Rate 87 ml/min (>60); GFR (African American) 106 ML/MIN (>60); Globulin 3.3 g/dL (1.3-3.2); Glucose 119 mg/dl (74-100); Potassium 4.2 mmoL/L (3.5-5.1); Sodium 140 mmol/L (136-145); Total Protein,Serum 7.3 g/dl (6.3-8.2)
[2020-01-03 16:05] LABS: Hemoglobin A1C 10.1 % (4.0-6.0)
== END ==
PROVIDERS: Visit Provider Podiatrist
DX: Z01.818 Encounter for other preprocedural examination (principal); L03.116 Cellulitis of left lower limb; L97.524 Non-pressure chronic ulcer of other part of left foot with necrosis of bone; E11.621 Type 2 diabetes mellitus with foot ulcer; Z79.4 Long term (current) use of insulin
CPT/HCPCS: 36415; 71046; 80053; 83036; 85025; 85651; 86140; 87070; 87077; 87186; 87205

== ENCOUNTER → 2020-01-20 10:13 | Outpatient (CLI) | payer MEDICARE, MEDICAID, SELFPAY ==
--- NOTE | 2020-01-20 10:28 | XR_ITS ---
PROCEDURE: XR FOOT WT BEARING LT 3V CLINICAL INDICATION: postop on toe amp Follow-up surgery COMPARISON: FTL3 FOOT-LT-3 VIEWS from 05/02/2016 FTL3 FOOT-LT-3 VIEWS from 06/27/2016 XR FOOT WT BEARING LT 3V from 12/09/2019 XR FOOT LT MIN 3V from 01/05/2020 FINDINGS: Status post old amputation at the 1st metatarsophalangeal joint and now more recent amputation at the 2nd and 3rd metatarsophalangeal joints with good alignment. No bony destructive process. Bandage artifact present. There is an old 5th metatarsal fracture IMPRESSION: Status post amputation at the 1st 2nd and 3rd metatarsophalangeal junction Dictated by: Jamison Jj MD 01/20/2020 11:03 Electronically signed by Jamison Jj MD in [place] 01/20/2020 11:03
[2020-01-20 11:03] LABS: Erythrocyte Sedimentation Rate 41 mm/hr (0-30)
[2020-01-20 13:36] LABS: Hemoglobin A1C 9.7 % (4.0-6.0)
== END ==
PROVIDERS: Visit Provider Podiatrist
DX: D72.829 Elevated white blood cell count, unspecified (principal); E11.65 Type 2 diabetes mellitus with hyperglycemia; Z98.890 Other specified postprocedural states
CPT/HCPCS: 36415; 73630; 83036; 85651

== ENCOUNTER → 2020-01-27 11:17 | Outpatient (CLI) | payer MEDICARE, MEDICAID, SELFPAY ==
[2020-01-27 11:33] LABS: Basophils # 0.1 K/mm3 (0-0.2); Basophils % 0.8 % (0.1-2.0); Eosinophils # 0.2 K/mm3 (0.0-0.4); Eosinophils % 2.8 % (0.1-12.0); Hematocrit 44.2 % (37.0-47.0); Hemoglobin 14.7 g/dL (12.2-16.2); Lymphocytes # 2.8 K/mm3 (0.7-4.5); Lymphocytes % 34.4 % (10-50); Mean Corpuscular HGB Conc 33.3 g/dL (31.8-35.4); Mean Corpuscular Hemoglobin 31.4 pg (27.0-31.2); Mean Corpuscular Volume 94.2 fl (81-99); Mean Platelet Volume 9.5 fl (7.4-10.4); Monocytes # 0.5 K/mm3 (0.1-1.0); Monocytes % 5.7 % (1.7-9.3); Neutrophils # 4.6 K/mm3 (1.8-7.8); Neutrophils % 56.3 % (37.0-80.0); Platelet Count 301 K/mm3 (142-424); Red Cell Distribution Width 13.2 % (11.5-17.5); White Blood Count 8.2 K/mm3 (4.8-10.8)
[2020-01-27 13:08] LABS: Alanine Aminotransferase 20 U/L (12-78); Albumin/Globulin Ratio 1.3 (1.1-1.8); Alkaline Phosphatase 92 U/L (38-126); Anion Gap 11.7 mEq/L (5-15); Aspartate Amino Transferase 45 U/L (14-36); Bilirubin,Total 0.2 mg/dl (0.2-1.3); Blood Urea Nitrogen 17 mg/dl (7-17); Calcium 9.9 mg/dl (8.4-10.2); Carbon Dioxide 34 mmol/L (22.0-30.0); Chloride 94 mmol/L (98-107); Estimated Glomerular Filt Rate 87 ml/min (>60); GFR (African American) 106 ML/MIN (>60); Globulin 3.2 g/dL (1.3-3.2); Glucose 175 mg/dl (74-100); Potassium 4.7 mmoL/L (3.5-5.1); Sodium 135 mmol/L (136-145); Total Protein,Serum 7.2 g/dl (6.3-8.2)
[2020-01-27 13:14] LABS: C-Reactive Protein 9.7 mg/L (0-4)
[2020-01-27 13:24] LABS: Erythrocyte Sedimentation Rate 43 mm/hr (0-30)
== END ==
PROVIDERS: Visit Provider Podiatrist
DX: E11.40 Type 2 diabetes mellitus with diabetic neuropathy, unspecified (principal); Z79.4 Long term (current) use of insulin; Z98.890 Other specified postprocedural states; I63.9 Cerebral infarction, unspecified; L84 Corns and callosities
CPT/HCPCS: 36415; 80053; 85025; 85651; 86140

== ENCOUNTER → 2020-02-10 10:06 | Outpatient (CLI) | payer MEDICARE, MEDICAID, SELFPAY ==
[2020-02-10 11:09] LABS: Basophils # 0.1 K/mm3 (0-0.2); Basophils % 0.8 % (0.1-2.0); Eosinophils # 0.3 K/mm3 (0.0-0.4); Eosinophils % 2.5 % (0.1-12.0); Hematocrit 44.4 % (37.0-47.0); Hemoglobin 14.6 g/dL (12.2-16.2); Lymphocytes # 2.7 K/mm3 (0.7-4.5); Lymphocytes % 23.8 % (10-50); Mean Corpuscular HGB Conc 32.9 g/dL (31.8-35.4); Mean Corpuscular Hemoglobin 31.3 pg (27.0-31.2); Mean Corpuscular Volume 95.3 fl (81-99); Monocytes # 0.5 K/mm3 (0.1-1.0); Monocytes % 4.7 % (1.7-9.3); Neutrophils # 7.6 K/mm3 (1.8-7.8); Neutrophils % 68.3 % (37.0-80.0); Platelet Count 325 K/mm3 (142-424); Red Blood Count 4.67 M/mm3 (4.20-5.40); Red Cell Distribution Width 13.2 % (11.5-17.5); White Blood Count 11.2 K/mm3 (4.8-10.8)
[2020-02-10 11:40] LABS: Erythrocyte Sedimentation Rate 18 mm/hr (0-30)
[2020-02-10 13:00] LABS: Chloride 98 mmol/L (98-107)
[2020-02-10 13:01] LABS: Potassium 4.4 mmoL/L (3.5-5.1); Sodium 138 mmol/L (136-145)
[2020-02-10 13:03] LABS: Alanine Aminotransferase 13 U/L (12-78); Alkaline Phosphatase 95 U/L (38-126); Anion Gap 13.4 mEq/L (5-15); Aspartate Amino Transferase 22 U/L (14-36); Bilirubin,Total 0.3 mg/dl (0.2-1.3); Blood Urea Nitrogen 16 mg/dl (7-17); Carbon Dioxide 31 mmol/L (22.0-30.0); Estimated Glomerular Filt Rate 87 ml/min (>60); GFR (African American) 106 ML/MIN (>60)
[2020-02-10 13:04] LABS: Albumin Level 3.9 g/dl (3.5-5.0); Albumin/Globulin Ratio 1.3 (1.1-1.8); Calcium 9.6 mg/dl (8.4-10.2); Globulin 3.1 g/dL (1.3-3.2); Glucose 206 mg/dl (74-100)
[2020-02-10 13:09] LABS: C-Reactive Protein 25.4 mg/L (0-4)
== END ==
PROVIDERS: Visit Provider Podiatrist
DX: E11.65 Type 2 diabetes mellitus with hyperglycemia (principal); Z98.890 Other specified postprocedural states; Z79.4 Long term (current) use of insulin; S98.132D Complete traumatic amputation of one left lesser toe, subsequent encounter
CPT/HCPCS: 36415; 80053; 85025; 85651; 86140

== ENCOUNTER → 2020-02-17 11:20 | Outpatient (CLI) | payer MEDICARE, MEDICAID, SELFPAY ==
--- NOTE | 2020-02-17 11:24 | XR_ITS ---
PROCEDURE: XR FOOT WT BEARING LT 3V CLINICAL INDICATION: Redness, pain, and burning surgical site. Pain and redness at surgical site COMPARISON: FTL3 FOOT-LT-3 VIEWS from 06/27/2016 XR FOOT WT BEARING LT 3V from 12/09/2019 CT FOOT LT WO CON from 12/28/2019 XR FOOT LT MIN 3V from 01/05/2020 XR FOOT WT BEARING LT 3V from 01/20/2020 FINDINGS: Prior amputation at the 1st 2nd and 3rd metatarsophalangeal joint. There does remain a defect involving the lateral distal aspect of the 2nd metatarsal and decreased attenuation involving the medial and distal aspect the 3rd metatarsal head similar to the previous exam and also having a similar appearance on 12/09/2019. There is an old 5th metatarsal fracture. IMPRESSION: Status post amputation at the 1st 2nd and 3rd metatarsophalangeal joints. No change in the defect at the distal aspect of the 2nd and 3rd metatarsals. MRI may provide further evaluation. No new findings are evident. Dictated by: Jamison Jj MD 02/17/2020 13:11 Electronically signed by Jamison Jj MD in [place] 02/17/2020 13:11
== END ==
PROVIDERS: PCP Physician Assistant; Visit Provider Podiatrist
DX: Z98.890 Other specified postprocedural states (principal); M79.672 Pain in left foot; L03.116 Cellulitis of left lower limb; E11.40 Type 2 diabetes mellitus with diabetic neuropathy, unspecified; Z79.4 Long term (current) use of insulin
CPT/HCPCS: 73630

== ENCOUNTER → 2020-02-24 12:33 | Outpatient (CLI) | payer MEDICARE, MEDICAID, SELFPAY ==
[2020-02-24 13:25] LABS: Basophils # 0.1 K/mm3 (0-0.2); Basophils % 0.7 % (0.1-2.0); Eosinophils # 0.2 K/mm3 (0.0-0.4); Eosinophils % 2.5 % (0.1-12.0); Hematocrit 45.3 % (37.0-47.0); Hemoglobin 14.4 g/dL (12.2-16.2); Lymphocytes # 3.1 K/mm3 (0.7-4.5); Lymphocytes % 32.8 % (10-50); Mean Corpuscular HGB Conc 31.8 g/dL (31.8-35.4); Mean Corpuscular Hemoglobin 30.9 pg (27.0-31.2); Mean Platelet Volume 9.2 fl (7.4-10.4); Monocytes # 0.4 K/mm3 (0.1-1.0); Monocytes % 4.1 % (1.7-9.3); Neutrophils # 5.7 K/mm3 (1.8-7.8); Neutrophils % 59.9 % (37.0-80.0); Platelet Count 302 K/mm3 (142-424); Red Blood Count 4.67 M/mm3 (4.20-5.40); Red Cell Distribution Width 13.4 % (11.5-17.5); White Blood Count 9.5 K/mm3 (4.8-10.8)
[2020-02-24 13:46] LABS: Alanine Aminotransferase 13 U/L (12-78); Albumin/Globulin Ratio 1.2 (1.1-1.8); Alkaline Phosphatase 87 U/L (38-126); Anion Gap 10.5 mEq/L (5-15); Aspartate Amino Transferase 26 U/L (14-36); Bilirubin,Total 0.3 mg/dl (0.2-1.3); Blood Urea Nitrogen 17 mg/dl (7-17); Calcium 10.2 mg/dl (8.4-10.2); Carbon Dioxide 36 mmol/L (22.0-30.0); Chloride 97 mmol/L (98-107); Estimated Glomerular Filt Rate 104 ml/min (>60); GFR (African American) 126 ML/MIN (>60); Globulin 3.3 g/dL (1.3-3.2); Glucose 109 mg/dl (74-100); Potassium 4.5 mmoL/L (3.5-5.1); Sodium 139 mmol/L (136-145); Total Protein,Serum 7.3 g/dl (6.3-8.2)
[2020-02-24 13:52] LABS: C-Reactive Protein 7.6 mg/L (0-4)
[2020-02-24 13:58] LABS: Erythrocyte Sedimentation Rate 25 mm/hr (0-30)
== END ==
PROVIDERS: Visit Provider Podiatrist
DX: Z98.890 Other specified postprocedural states (principal); I63.9 Cerebral infarction, unspecified
CPT/HCPCS: 36415; 80053; 85025; 85651; 86140

== ENCOUNTER → 2020-03-01 09:56 | Outpatient (CLI) | payer MEDICARE, MEDICAID, SELFPAY ==
--- NOTE | 2020-03-01 10:03 | MR_ITS ---
PROCEDURE: MR FOOT LT WO/W CON CLINICAL INDICATION: osteomyelitis Continued pain swelling and wound dehiscence with abnormal radiograph COMPARISON: XR FOOT WT BEARING LT 3V from 01/20/2020 XR FOOT WT BEARING LT 3V from 02/17/2020 TECHNIQUE: Routine multiplanar multi echo sequences are performed without and with gadolinium enhancement. FINDINGS: There has been prior amputation at the 1st 2nd and 3rd metatarsophalangeal junction. Soft tissue swelling is present at the amputation site distal to the 2nd and 3rd metatarsal heads. Defect is present in the lateral aspect of the 2nd metatarsal head and the medial aspect of the 3rd metatarsal head corresponding to the radiographic appearance. These areas have been present on the radiograph dating back to 11/17/2019. No obvious abscess. There is some subarticular cystic change of the navicular distally and dorsally and of the dorsal aspect of the lateral cuneiform. Abnormal signal intensity involves the mid to distal aspect of the Achilles tendon with disruption of the tendon. The tendon is ruptured 4.3 cm proximal to the insertion on the calcaneus with the proximal aspect of the tendon retracted by 4 cm. There is some nonspecific slight increased T2 signal within the proximal and mid aspect of the 1st metatarsal IMPRESSION: 1. Prior amputation at the 1st 2nd and 3rd metatarsophalangeal junction with soft tissue swelling distal to the 2nd and 3rd metatarsals consistent with cellulitis. No convincing evidence of osteomyelitis. 2. Achilles tendon rupture. 3. Other nonacute findings as described above Dictated by: Jamison Jj MD 03/03/2020 10:21 Electronically signed by Jamison Jj MD in [place] 03/03/2020 10:21
== END ==
PROVIDERS: PCP Physician Assistant; Visit Provider Podiatrist
DX: Z98.890 Other specified postprocedural states (principal); M86.172 Other acute osteomyelitis, left ankle and foot
CPT/HCPCS: 73720; A9576

== ENCOUNTER → 2020-03-16 12:45 | Outpatient (CLI) | payer MEDICARE, MEDICAID, SELFPAY ==
--- NOTE | 2020-03-16 13:07 | XR_ITS ---
PROCEDURE: XR FOOT WT BEARING LT 3V CLINICAL INDICATION: lateral foot pain Follow-up surgery COMPARISON: XR FOOT WT BEARING LT 3V from 12/09/2019 XR FOOT LT MIN 3V from 01/05/2020 XR FOOT WT BEARING LT 3V from 01/20/2020 XR FOOT WT BEARING LT 3V from 02/17/2020 FINDINGS: No change status post amputation at the 1st 2nd and 3rd metatarsophalangeal joint. There remains a defect involving the distal aspect of the 2nd metatarsal laterally and the distal aspect the 3rd metatarsal medially. Osteoarthritic changes are present involving the midfoot. There is an old 5th metatarsal fracture. IMPRESSION: No change status post amputation at the 1st 2nd and 3rd metatarsophalangeal junction Dictated by: Jamison Jj MD 03/16/2020 14:28 Electronically signed by Jamison Jj MD in [facility] 03/16/2020 14:28
[2020-03-16 13:10] LABS: Basophils # 0.1 K/mm3 (0-0.2); Basophils % 0.9 % (0.1-2.0); Eosinophils # 0.3 K/mm3 (0.0-0.4); Eosinophils % 2.5 % (0.1-12.0); Hematocrit 45.1 % (37.0-47.0); Hemoglobin 14.3 g/dL (12.2-16.2); Lymphocytes # 3.1 K/mm3 (0.7-4.5); Lymphocytes % 30.8 % (10-50); Mean Corpuscular HGB Conc 31.6 g/dL (31.8-35.4); Mean Corpuscular Volume 97.9 fl (81-99); Mean Platelet Volume 9.2 fl (7.4-10.4); Monocytes # 0.5 K/mm3 (0.1-1.0); Monocytes % 4.8 % (1.7-9.3); Neutrophils # 6.2 K/mm3 (1.8-7.8); Platelet Count 264 K/mm3 (142-424); Red Cell Distribution Width 13.8 % (11.5-17.5); White Blood Count 10.1 K/mm3 (4.8-10.8)
[2020-03-16 14:00] LABS: Erythrocyte Sedimentation Rate 55 mm/hr (0-30)
[2020-03-16 14:43] LABS: Alanine Aminotransferase 11 U/L (12-78); Albumin Level 3.9 g/dl (3.5-5.0); Albumin/Globulin Ratio 1.3 (1.1-1.8); Alkaline Phosphatase 91 U/L (38-126); Anion Gap 6.9 mEq/L (5-15); Aspartate Amino Transferase 25 U/L (14-36); Blood Urea Nitrogen 21 mg/dl (7-17); Calcium 9.5 mg/dl (8.4-10.2); Carbon Dioxide 34 mmol/L (22.0-30.0); Chloride 100 mmol/L (98-107); Estimated Glomerular Filt Rate 104 ml/min (>60); GFR (African American) 126 ML/MIN (>60); Glucose 109 mg/dl (74-100); Potassium 3.9 mmoL/L (3.5-5.1); Sodium 137 mmol/L (136-145); Total Protein,Serum 6.9 g/dl (6.3-8.2)
[2020-03-16 14:44] LABS: Bilirubin,Total < 0.1 mg/dl (0.2-1.3)
[2020-03-16 14:49] LABS: C-Reactive Protein 12.8 mg/L (0-4)
== END ==
PROVIDERS: PCP Physician Assistant; Visit Provider Podiatrist
DX: E11.65 Type 2 diabetes mellitus with hyperglycemia (principal); Z98.890 Other specified postprocedural states; Z79.4 Long term (current) use of insulin
CPT/HCPCS: 36415; 73630; 80053; 85025; 85651; 86140

== ENCOUNTER → 2020-05-11 16:12 | Outpatient (CLI) | payer MEDICARE, MEDICAID, SELFPAY ==
--- NOTE | 2020-05-11 16:19 | XR_ITS ---
PROCEDURE: XR FOOT WT BEARING LT 3V CLINICAL INDICATION: Wound, Pain COMPARISON: XR FOOT LT MIN 3V from 01/05/2020 XR FOOT WT BEARING LT 3V from 01/20/2020 XR FOOT WT BEARING LT 3V from 02/17/2020 XR FOOT WT BEARING LT 3V from 03/16/2020 FINDINGS: Status post amputation at the 1st 2nd and 3rd metatarsophalangeal joints Persistent lucency noted between the heads of the 2nd and 3rd metatarsals similar to multiple previous exams. Degenerative changes at the midfoot. There is an old 5th metatarsal fracture Other findings:None. IMPRESSION: Postsurgical changes. No change in the lucency at the heads of the 2nd and 3rd metatarsals. Dictated by: Jamison Jj MD 05/11/2020 17:56 Electronically signed by Jamison Jj MD in [facility] 05/11/2020 17:56
[2020-05-11 16:58] LABS: Basophils # 0.1 K/mm3 (0-0.2); Basophils % 0.9 % (0.1-2.0); Eosinophils # 0.3 K/mm3 (0.0-0.4); Eosinophils % 3.4 % (0.1-12.0); Hematocrit 43.1 % (37.0-47.0); Hemoglobin 14.9 g/dL (12.2-16.2); Lymphocytes # 2.6 K/mm3 (0.7-4.5); Lymphocytes % 28.1 % (10-50); Mean Corpuscular HGB Conc 34.5 g/dL (31.8-35.4); Mean Corpuscular Hemoglobin 31.8 pg (27.0-31.2); Mean Corpuscular Volume 92.1 fl (81-99); Monocytes # 0.6 K/mm3 (0.1-1.0); Monocytes % 6.4 % (1.7-9.3); Neutrophils # 5.7 K/mm3 (1.8-7.8); Neutrophils % 61.1 % (37.0-80.0); Platelet Count 291 K/mm3 (142-424); Red Blood Count 4.69 M/mm3 (4.20-5.40); Red Cell Distribution Width 13.6 % (11.5-17.5); White Blood Count 9.3 K/mm3 (4.8-10.8)
[2020-05-11 17:32] LABS: Chloride 100 mmol/L (98-107); Erythrocyte Sedimentation Rate 39 mm/hr (0-30); Potassium 3.9 mmoL/L (3.5-5.1); Sodium 139 mmol/L (136-145)
[2020-05-11 17:35] LABS: Alanine Aminotransferase 13 U/L (12-78); Albumin Level 3.8 g/dl (3.5-5.0); Albumin/Globulin Ratio 1.2 (1.1-1.8); Alkaline Phosphatase 88 U/L (38-126); Anion Gap 7.9 mEq/L (5-15); Aspartate Amino Transferase 20 U/L (14-36); Bilirubin,Total 0.4 mg/dl (0.2-1.3); Blood Urea Nitrogen 21 mg/dl (7-17); Carbon Dioxide 35 mmol/L (22.0-30.0); Estimated Glomerular Filt Rate 87 ml/min (>60); GFR (African American) 106 ML/MIN (>60); Globulin 3.2 g/dL (1.3-3.2)
[2020-05-11 17:36] LABS: Calcium 9.7 mg/dl (8.4-10.2); Glucose 157 mg/dl (74-100)
[2020-05-11 17:40] LABS: C-Reactive Protein 18.8 mg/L (0-4)
[2020-05-11 19:17] LABS: Hemoglobin A1C 8.7 % (4.0-6.0)
== END ==
PROVIDERS: PCP Physician Assistant; Visit Provider Nurse Practitioner
DX: Z98.890 Other specified postprocedural states (principal); E11.65 Type 2 diabetes mellitus with hyperglycemia; Z51.89 Encounter for other specified aftercare
CPT/HCPCS: 36415; 73630; 80053; 83036; 85025; 85651; 86140; 87070; 87077; 87186; 87205

== ENCOUNTER 2020-05-16 12:27 | Inpatient (IN) | payer MEDICARE, MEDICAID, SELFPAY ==
[2020-05-16 12:30] VITALS: BP 147/72; PULSE 67; RESP 18; TEMP 36.8; O2SAT 92; BMI 38.6
--- NOTE | 2020-05-16 12:37 | XR_ITS ---
PROCEDURE: XR FOOT RT MIN 3V CLINICAL INDICATION: Infection pain and swelling COMPARISON: XR FOOT WT BEARING LT 3V from 01/20/2020 XR FOOT WT BEARING LT 3V from 02/17/2020 XR FOOT WT BEARING LT 3V from 03/16/2020 XR FOOT WT BEARING LT 3V from 05/11/2020 FINDINGS: No fracture or dislocation. No lytic or blastic change. There is normal mineralization. The joint spaces are well-preserved. No significant degenerative/arthritic changes. No erosive changes evident. Other findings:Bandage artifact noted along the dorsal aspect of the midfoot IMPRESSION: No acute findings. Dictated by: Jamison Jj MD 05/16/2020 13:46 Electronically signed by Jamison Jj MD in [facility] 05/16/2020 13:46
--- NOTE | 2020-05-16 12:37 | XR_ITS ---
PROCEDURE: XR FOOT LT MIN 3V CLINICAL INDICATION: Left foot infection Pain COMPARISON: XR FOOT WT BEARING LT 3V from 01/20/2020 XR FOOT WT BEARING LT 3V from 02/17/2020 XR FOOT WT BEARING LT 3V from 03/16/2020 XR FOOT WT BEARING LT 3V from 05/11/2020 FINDINGS: Status post amputation at the metatarsophalangeal joints of the 1st 2nd and 3rd digits. There remains lucency between the heads of the 2nd and 3rd metatarsals as previously noted not significantly changed. The the lucency in also noted along the medial head of the 2nd metatarsal not significantly changed. There is an old fracture of the distal aspect of the 5th metatarsal. No acute bony destructive process is identified. Bandage artifact is noted. The joint spaces are well-preserved. No significant degenerative/arthritic changes. No erosive changes evident. Other findings:None. IMPRESSION: Postsurgical changes. Old 5th metatarsal fracture. No change from 05/11/2020 Dictated by: Jamison Jj MD 05/16/2020 13:51 Electronically signed by Jamison Jj MD in [place] 05/16/2020 13:51
--- NOTE | 2020-05-16 12:38 | US_ITS ---
APPROVED REPORT Exam Type: Lower Extremity Segmental Pressures Security Management Specialist: Abimbola Khanna RDCS Indications Non-healing Ulcer: Bilaterally PAD Risk Factors History of PAD: Obesity TIA/CVA History Diabetes Pressures/Indices Right Indices Left Indices Brachial 157.00 mmHg Brachial 158.00 mmHg Low Thigh 160.00 mmHg 1.01 Low Thigh 96.00 mmHg 0.61 Calf 169.00 mmHg 1.07 Calf 61.00 mmHg 0.39 Ankle(PT) 123.00 mmHg 0.78 Ankle(PT) 44.00 mmHg 0.28 Ankle(DP) 110.00 mmHg 0.70 Ankle(DP) 31.00 mmHg 0.20 Digit 105.00 mmHg 0.66 Digit 10.00 mmHg 0.06 Findings DIMINISHED WAVEFORMS AND PULSES R NICOLAS .8 L NICOLAS .3 R TBI .7 L TBI .1 Conclusion MILD RIGHT AND SEVERE LEFT ARTERIAL DISEASE Electronically signed by : Jamison Jj MD 05/16/2020 17:40:21
--- NOTE | 2020-05-16 12:41 | XR_ITS ---
PROCEDURE: XR CHEST PORTABLE CLINICAL HISTORY: pre op surgery Hypertension, former smoker COMPARISON: CXR2V XR chest 2V from 05/27/[address] chest wo con from 10/28/2018 [id number] XR ribs RT min 3V w CXR1V from 02/18/2019 XR CHEST 2V from 01/03/2020 FINDINGS: The cardiomediastinal silhouette and pulmonary vascularity are within normal limits. The lungs are clear without infiltrates, suspicious nodules, or pleural effusions. No acute bony abnormalities. IMPRESSION: No acute findings. Dictated by: Jamison Jj MD 05/16/2020 13:54 Electronically signed by Jamison Jj MD in [facility] 05/16/2020 13:54
--- NOTE | 2020-05-16 13:22 | CA_ITS ---
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 Endocardial surfaces are very poorly visualized, a repeat study with Definity contrast is recommended. Left atrium is mildly enlarged, left ventricle is normal size, mild concentric left ventricular hypertrophy, visually estimated ejection fraction approximately 50%, there appears to be mild hypokinesis involving the distal septum and apical wall. Grade 1 diastolic dysfunction seen with tissue Doppler evidence of raise left atrial pressure. Right Ventricle Right atrium and right ventricular normal size and contractility. Aortic Valve Aortic valve is thickened and calcified leaflet continue to display mobility, there is no aortic stenosis or aortic insufficiency. Mitral Valve Mitral valve is grossly normal, there is mild mitral regurgitation. Tricuspid Valve Tricuspid valve is grossly normal, there is mild tricuspid regurgitation, tricuspid regurgitation jet velocity is inadequate for calculation of the right ventricular systolic pressure. Pulmonic Valve Pulmonic valve is poorly visualized. Great Vessels Aortic root is normal size. Pericardium No significant pericardial effusion noted. Conclusion 1. Technically very difficult study as described above, repeat study with Definity contrast is recommended. 2. Mildly enlarged left atrium, normal left ventricular size, mild concentric left ventricular hypertrophy, visually estimated ejection fraction approximately 50% with segmental wall motion abnormality described above, grade 1 diastolic dysfunction seen with tissue Doppler evidence of raise left atrial pressure. 3. Thickened and calcified aortic valve without aortic stenosis or aortic insufficiency. 4. Mild mitral and tricuspid regurgitation. 5. No significant pericardial effusion noted. Electronically signed by : Dg Thompson, 05/16/2020 18:50:11
--- NOTE | 2020-05-16 13:29 | HMH.ORTHOCON ---
*Admission Date: 05/16/20 *Reason for consult:: B/L foot cellulitis, DM ulcer *History of present illness: Ms. Squires is a 54-year-old diabetic female who unfortunately had a recent stroke with right sided paralysis. She was at for the stroke and then sent to [facility] for rehab. At the time she also had a left calcaneal heel ulcer so she was nonweightbearing in a wheelchair and offloading the wound. The left heel wound has since healed but patient reports stiffness and weakness secondary to the lack of physical therapy. Patient presents to the Podiatry office today for a followup of left foot wounds. She reports daily dressing changes with Santyl and a dry dressing. She reports having yellow milky drainage. She also presents today with a new wound on her right Lateral foot, the area appears red and inflamed with ascending cellulitis noted. She denies having any drainage from that area. She states that she first noticed the wound on Friday05/12/20. She also reports having numbness, burning, and tingling sensations to her feet. Today in the office her glucose is 186 mg/dl. Overall patient appeared ill, lethargic with bilateral lower extremity cellulitis and gangrene. Patient has had vascular procedures to both lower extremities by the cardiology team. Patient was admitted today 05/16/[address] Patterson at my recommendation for IV antibiotics. Patient is going to have surgery tomorrow for left foot irrigation and debridement, Review of Systems - Review of Systems Review of systems:: pertinent systems reviewed and negative unless documented below - Constitutional Reports lack of energy, Reports weakness - Eyes Reports blurry vision - ENT Denies abnormal hearing - *Cardiovascular Reports shortness of breath, Denies chest pain - *Respiratory Denies cough - *Gastrointestinal Reports nausea, Denies vomiting - *Genitourinary Denies abnormal periods - *Musculoskeletal Reports limited joint movement, Reports muscle weakness, Reports numbness - Integumentary/Breasts Reports hair loss, Reports change in skin color, Reports dry skin, Reports skin ulcer, Reports wounds - *Neurologic Reports unsteadiness, Reports tingling/numbness/burning sensations, Reports weakness - Psychiatric Denies abnormal sleep pattern - Endocrine Reports increased thirst - Hematologic/Lymphatic Reports easy bruising - Allergic/Immunologic Reports GI upset with certain foods H History I have reviewed the patient's past medical history: Yes Medical History: Reports:: Anxiety, Chronic Obstructive Pulmonary Disease (COPD), Coronary Artery Disease, Cerebrovascular Accident, Depression, Diabetes Mellitus Type 2, Hyperlipidemia, Hypertension, Peripheral Artery Disease Denies:: Cancer, Diabetes Mellitus Type 1, Internal Pacemaker, MRSA, Seizures *Have you ever received a pneumonia vaccine?: Yes *Have you received a flu vaccine this season?: Yes Other Medical History: Reports: Hypothyroidism. Denies: Blood Transfusion Reaction Laterality Cases: Bilateral: Other Other Surgeries: Yes: Cardiac Catheterization, Cardiac Surgery, Coronary Stent, Thyroidectomy, Tubal Ligation, Other. No: Pacemaker Amputation: Yes (Toe left big) Fractures: No - *Social History Smoking Status: Former smoker Tobacco Type: cigarettes # Packs/Day (cigarettes): 1 #Yrs smoked (if former smoker): 30 Alcohol Intake: never Substance Use Type: denies use *Occupational Status:: disabled Housing: house Household Members: family *Travel in the last 8 weeks: None - Psychiatric History Pschychiatric History:: Reports:: Anxiety, Depression Family Hx:: Asthma, Cancer, Heart Attack, Hypertension, Stroke Meds Home Medications Medication Instructions Recorded Confirmed Type acetaminophen 500 mg tablet 1,000 mg PO Q6H PRN 12/22/17 05/16/20 History vitamin B complex 1 tab PO ONCE 12/22/17 05/16/20 History tiotropium bromide 2.5 2 puff INHALATION DAILY 02/02/19 05/16/20 His
--- NOTE | 2020-05-16 13:37 | P.CONPHA_ITS ---
[facility] Pharmacy VTE Monitoring - Patient Demographics Allergies/Adverse Reactions: Patient Allergies No Known Allergies Allergy (Verified 05/16/20 10:42) Height: 1.75 m Weight: 118.7 kg - VTE Risk Clinical Trial Participant: No - Prophylaxis VTE Prophylaxis Ordered?: Yes Types of VTE Prophylaxis: TEDS Knee High
--- NOTE | 2020-05-16 13:50 | ECG_ITS ---
APPROVED REPORT Exam: Resting ECG HR:68 bpm ECG Measurements Heart Rate 68 AXES OR 162 P 35 QRSd 98 QRS 20 QT 452 T 79 QTc 480 <Conclusion> Normal sinus rhythm Prolonged QT Abnormal ECG Electronically signed by : Jimenez Suárez, 05/16/2020 21:22:16
--- NOTE | 2020-05-16 14:06 | HMH.PHACONS ---
- Pharmacy Consult Date: 05/16/20 Time: 14:06 Referring provider: DR. ALONZO Reason for Consult:: VANCOMYCIN DOSING Allergies and ADEs:: Allergies Allergy/AdvReac Type Severity Reaction Status Date / Time No Known Allergies Allergy Verified 05/16/20 10:42 Home Medications:: Home Medications Medication Instructions Recorded Confirmed Type acetaminophen 500 mg tablet 1,000 mg PO Q6H PRN 12/22/17 05/16/20 History vitamin B complex 1 tab PO ONCE 12/22/17 05/16/20 History tiotropium bromide 2.5 2 puff INHALATION DAILY 02/02/19 05/16/20 History mcg/actuation mist for inhalation insulin aspart U-100 100 unit/mL 12 unit SQ TID ml 12/09/19 05/16/20 History (3 mL) subcutaneous pen atorvastatin 40 mg tablet 40 mg PO BID tab 12/27/19 05/16/20 History Albuterol Sulfate [Proventil Hfa] See Rx Instructions .ROUTE .COMPLEX 01/04/20 05/16/20 History Aspirin [Low Dose Aspirin EC] 81 mg PO DAILY 01/04/20 05/16/20 History Budesonide/Formoterol Fumarate 2 puff INHALATION Q12H 01/04/20 05/16/20 History [Symbicort] Buspirone HCl [Buspar 10mg 10 mg PO TID 01/04/20 05/16/20 History tablet] Cholecalciferol (Vitamin D3) 1,000 unit PO DAILY 01/04/20 05/16/20 History [Vitamin D3 1,000 Unit Cap] Levothyroxine Sodium 150 mcg PO DAILY 01/04/20 05/16/20 History [Levothyroxine 150mcg (0.15mg) Tab] Nicotine [Nicotine Patch 1 patch TRANSDERMAL DAILY 01/04/20 05/16/20 History 21mg/24hrs] urea 45 % lotion 1 applic TOPICAL BID #480 g 01/20/20 05/16/20 Rx ergocalciferol (vitamin D2) 1,250 50,000 unit PO QWEEK #4 cap 02/28/20 05/16/20 Rx mcg (50,000 unit) capsule lovastatin 40 mg tablet 40 mg PO DAILY #90 tab 03/14/20 05/16/20 Rx gabapentin 600 mg tablet 600 mg PO QID #120 tab 03/29/20 05/16/20 Rx tramadol 50 mg tablet 50 mg PO Q8H PRN #90 tab 03/29/20 05/16/20 Rx collagenase clostridium histo. 250 1 applic TOPICAL QDAY #30 g 03/30/20 05/16/20 Rx unit/gram topical ointment doxycycline hyclate 100 mg capsule 100 mg PO BID 14 Days #28 cap 05/11/20 05/16/20 Rx Blood Sugar Diagnostic [Assure See Rx Instructions .ROUTE .COMPLEX 05/16/20 05/16/20 History [place] Test Strip] Ciprofloxacin HCl [Ciprofloxacin 500 mg PO BID 05/16/20 05/16/20 History 500mg Tab] Duloxetine HCl [Cymbalta] See Rx Instructions .ROUTE .COMPLEX 05/16/20 05/16/20 History Insulin Glargine,Hum.rec.anlog See Rx Instructions .ROUTE .COMPLEX 05/16/20 05/16/20 History [Lantus Solostar 100 Units/mL 3mL flexpen] Rivaroxaban [Xarelto] 2.5 mg PO BID 05/16/20 05/16/20 History Urea [Uramaxin] 1 applic TOPICAL BID 05/16/20 05/16/20 History Height: 1.75 m Weight: 118.7 kg Medical History: Reports:: Anxiety, Chronic Obstructive Pulmonary Disease (COPD), Coronary Artery Disease, Cerebrovascular Accident, Depression, Diabetes Mellitus Type 2, Hyperlipidemia, Hypertension, Peripheral Artery Disease Denies:: Cancer, Diabetes Mellitus Type 1, Internal Pacemaker, MRSA, Seizures Assessment and Plan - Assessment and plan all Dx Assessment and Plan for all problems:: BASED ON PATIENT FACTORS, RECOMMEND INITIATING VANCOMYCIN AT 2,000MG EVERY 12 HOURS. PHARMACY WILL MONITOR AND ORDER TROUGH LEVEL PRIOR TO FOURTH DOSE. AT THAT POINT DOSE WILL BE ADJUSTED APPROPRIATE. -STEPHANIE NICKERSON, JENNYD
[2020-05-16 14:25] LABS: Chloride 99 mmol/L (98-107); Potassium 3.9 mmoL/L (3.5-5.1); Sodium 140 mmol/L (136-145)
[2020-05-16 14:28] LABS: Alanine Aminotransferase 15 U/L (12-78); Albumin Level 3.8 g/dl (3.5-5.0); Alkaline Phosphatase 107 U/L (38-126); Anion Gap 9.9 mEq/L (5-15); Aspartate Amino Transferase 20 U/L (14-36); Bilirubin,Total 0.4 mg/dl (0.2-1.3); Blood Urea Nitrogen 22 mg/dl (7-17); Carbon Dioxide 35 mmol/L (22.0-30.0); Creatinine Clearance Estimated 201 mL/min (50-200); Estimated Glomerular Filt Rate 104 ml/min (>60); GFR (African American) 126 ML/MIN (>60); Globulin 3.9 g/dL (1.3-3.2); Total Protein,Serum 7.7 g/dl (6.3-8.2)
[2020-05-16 14:30] LABS: Calcium 9.4 mg/dl (8.4-10.2); Glucose 196 mg/dl (74-100)
[2020-05-16 14:31] LABS: Basophils # 0.1 K/mm3 (0-0.2); Basophils % 0.7 % (0.1-2.0); Eosinophils # 0.4 K/mm3 (0.0-0.4); Eosinophils % 4.4 % (0.1-12.0); Hematocrit 43.6 % (37.0-47.0); Lymphocytes # 2.3 K/mm3 (0.7-4.5); Lymphocytes % 26.4 % (10-50); Mean Corpuscular HGB Conc 32.1 g/dL (31.8-35.4); Mean Corpuscular Hemoglobin 30.9 pg (27.0-31.2); Mean Corpuscular Volume 96.1 fl (81-99); Mean Platelet Volume 9.1 fl (7.4-10.4); Monocytes # 0.4 K/mm3 (0.1-1.0); Monocytes % 4.4 % (1.7-9.3); Neutrophils # 5.5 K/mm3 (1.8-7.8); Neutrophils % 64.1 % (37.0-80.0); Platelet Count 308 K/mm3 (142-424); Red Blood Count 4.53 M/mm3 (4.20-5.40); Red Cell Distribution Width 13.5 % (11.5-17.5); White Blood Count 8.6 K/mm3 (4.8-10.8)
[2020-05-16 14:34] LABS: C-Reactive Protein 15.1 mg/L (0-4)
--- NOTE | 2020-05-16 14:35 | HMH.CNCARD ---
History of Present Illness Consult date: 05/16/20 Requesting physician: Sameer Patterson Consult reason: pre-op evaluation Chief complaint: Bilateral nonhealing LE ulcers Additional Medical History:: 1. PAD A. Left SFA POBA, 04/2015 B. 5 BMS to Left SFA, 12/2018 C. Drug eluting ballooning of right SFA with less than 20% residual, 01/2019 D. 12/2019, Left SFA drug coated ballooning and BMS, resolute rylie stent to right AT trunk E. 12/2019, left second and third toe amputation, left heel debridement, left Achilles lengthening 2. Tobacco use, since age 18, 1.5-2 ppd A. PFT's, 11/2018, severe obstructive airway disease. 3. Diabetes, insulin requiring for 15 yrs. 4. Hypertension A. Echo, 07/2017, 1. Technically difficult study because of the patient's factor and poor acoustic windows. 2. Mildly enlarged left atrium, normal left ventricular size, mild concentric left ventricular hypertrophy, septum has sigmoid configuration, visually estimated ejection fraction of 55% with no obvious regional wall motion abnormality. Grade 1 diastolic dysfunction seen with tissue Doppler evidence of raised left atrial pressure. 3. Mild mitral and tricuspid regurgitation. 4. No significant pericardial effusion noted 5. Hyperlipidemia A. LDL 150, 11/2019 6. FH of CAD in her father, [place] in his early 60's 7. CVA with right hemiparesis, 03/2020 A. Prior CVA 10/2019 affecting eyesight 8. CAD A. [facility], 07/2017 ANGIOGRAPHIC RESULTS: 1. The left main artery normal 2. The left anterior descending artery has proximal sequential 30% nonflow limiting stenoses with normal mid LAD vascularity 3. The circumflex artery is a large dominant vessel and has mild luminal irregularities 4. The right coronary artery is a small nondominant vessel which has mid vessel 80 and 90% stenoses supplying an RV marginal branch. 5. The STRINGER ventriculogram reveals 65% 6. The left ventricular end-diastolic pressure 20 mmHg IMPRESSION: 1. Mild nonflow limiting proximal LAD disease 2. Severe disease in a small nondominant right coronary artery and a 2.25 to 2.5 mm vessel 3. Normal ejection fraction 4. Mildly elevated LVEDP PLAN: 1. At this point I recommend medical management. The proximal LAD lesion is quite focal and not smooth vascularity is one would like to see. A focal short bandlike stenosis does not meet criteria for FFR but rather medical management. 2. And less patient has recalcitrant angina I would prefer to treat the right coronary artery medically. Technically I could supply a stent to the mid right coronary artery but I do not believe this would give her any clinical benefit at this time 3. LDL less than 55 4. Risk factor modification 5. Cardiac rehabilitation 6. Weight-loss 7. 81 mg aspirin daily 9. Bilateral Thyroid nodules on u/s, 11/2018 A. Thyroid uptake, 11/2018, normal left, hypoactive right B. Patient relates thyroidectomy without need for radiation or chemotherapy due to nodules being benign. History of present illness: Ms. Squires is a 54-year-old diabetic female who unfortunately had a recent stroke with right sided paralysis. She was at for the stroke and then sent to [facility] for rehab. At the time she also had a left calcaneal heel ulcer so she was nonweightbearing in a wheelchair and offloading the wound. The left heel wound has since healed but patient reports stiffness and weakness secondary to the lack of physical therapy. Patient presents to the Podiatry office today for a followup of left foot wounds. She reports daily dressing changes with Santyl and a dry dressing. She reports having yellow milky drainage. She also presents today with a new wound on her right Lateral foot, the area appears red and inflamed with ascending cellulitis noted. She denies having any drainage from that area. She states that she first noticed the wound on Friday05/12/20. She also reports having num
[2020-05-16 14:51] LABS: Erythrocyte Sedimentation Rate 36 mm/hr (0-30)
--- NOTE | 2020-05-16 15:41 | HMH.PHAINT ---
Addendum entered and electronically signed by Cornelia Knight PharmD 05/17/20 10:30: HOME MEDICATION LISTS OBTAINED FROM [facility] AND [facility]. COMPARED TWO LISTS AND TRIED TO DISCUSS WITH PT. ALSO LOOKSED AT PREVIOUS OFFICE VISIT NOTES. Original Note: MEDICATION RECONCILIATION COMPLETED USING EXTERNAL FILL HISTORY, PHARMACY AND PATIENT.
[2020-05-16 16:00] VITALS: BP 137/63; PULSE 69; RESP 18; TEMP 36.8; O2SAT 96
[2020-05-16 16:27] LABS: Coronavirus 19 IgG Antibody Negative (Negative); Coronavirus 19 IgM Antibody Negative (Negative)
[2020-05-16 16:59] LABS: POC Glucose,Bedside 233 (70-110)
--- NOTE | 2020-05-16 18:11 | HMH.HP ---
*Admission Date: 05/16/20 *Chief complaint: cellulitis bilateral lower extremities, gangrenous ulcer left foot *History of present illness: Ms. Squires is a 54-year-old diabetic female who unfortunately had a recent stroke with right sided paralysis. She was at for the stroke and then sent to [facility] for rehab. At the time she also had a left calcaneal heel ulcer so she was nonweightbearing in a wheelchair and offloading the wound. The left heel wound has since healed but patient reports stiffness and weakness secondary to the lack of physical therapy. Patient presents to the Podiatry office today for a followup of left foot wounds. She reports daily dressing changes with Santyl and a dry dressing. She reports having yellow milky drainage. She also presents today with a new wound on her right Lateral foot, the area appears red and inflamed with ascending cellulitis noted. She denies having any drainage from that area. She states that she first noticed the wound on Friday05/12/20. She also reports having numbness, burning, and tingling sensations to her feet. Today in the office her glucose is 186 mg/dl. Overall patient appeared ill, lethargic with bilateral lower extremity cellulitis and gangrene. Patient has had vascular procedures to both lower extremities by the cardiology team. Below are findings from podiatry: 1 - Right foot edema and erythema noted with a new arterial ulcer to the dorsal foot. No purulence noted. There is ascending cellulitis noted. 2 - Left foot cool with arterial ulcers to the dorsal medial foot x2. Ulcers also noted to the lateral foot along the fifth metatarsal. Ulcer is gangrenous with malodor noted. Previous amputation of the left first second and third toes. Left foot edema and erythema with nonpalpable pulses and cold extremities. Seen in consultation today by cardiology team. This is the current plan from cardiovascular perspective 1. Bilateral lower extremity nonhealing ulcers, left greater than right. Plan to proceed with bilateral lower extremity runoff tomorrow with plans to intervene in the left lower extremity. If, by chance, the left lower extremity arterial system is patent and does not need intervention, then the plan is to proceed with intervention in the right SFA due to new right foot ulcer. 2. Known mild, [id number] coronary artery disease by cardiac catheterization 07/2017, clinically stable. Patient previously on carvedilol therapy but this appears to have been stopped during her admission for CVA in October 2019. She currently is on aspirin and Norvasc therapy. Preliminary echocardiogram today is a difficult study and appears to show preserved ejection fraction with no significant valvular heart disease. 3. Diabetes mellitus, Per Dr. Patterson 4. History of hypertension, controlled on lisinopril and norvasc but not to goal. 5. Hyperlipidemia, on statin therapy 6. PAD with multiple interventions in the left and right lower extremities, on aspirin and Xarelto therapy. Hold Xarelto tonight in preparation for angiogram tomorrow. She is admitted to our service today. [facility] History Medical History: Reports:: Anxiety, Chronic Obstructive Pulmonary Disease (COPD), Coronary Artery Disease, Cerebrovascular Accident, Depression, Diabetes Mellitus Type 2, Hyperlipidemia, Hypertension, Peripheral Artery Disease, Peripheral Vascular Disease Denies:: Cancer, Diabetes Mellitus Type 1, Internal Pacemaker, MRSA, Seizures *Have you ever received a pneumonia vaccine?: No *Have you received a flu vaccine this season?: Yes Other Medical History: Reports: Hypothyroidism. Denies: Blood Transfusion Reaction Laterality Cases: Bilateral: Other Other Surgeries: Yes: Cardiac Catheterization, Cardiac Surgery, Coronary Stent, Thyroidectomy, Tubal Ligation, Other. No: Pacemaker Amputation: Yes (Toe left big) Fractures: No - *Social History Last grade of school completed: GED Smoking Status: Current every day
--- NOTE | 2020-05-16 18:22 | PC.NURSE ---
Pt has been resting for short intervals since arriving to floor. Pt direct admit, Dr. Rutledge to do irrigation and debridement of left foot. Kerlex dressing in place to BLE feet, put in place by Dr. Rutledge w/ orders to re-inforce dressings as needed. Unable to obtain pictures for pt's chart d/t no visualization of wound. Popliteal pulses palpable. Pt is paralyzed on (R) side from prior CVA. Pt also notes that CVA left pt w/ poor vision as well. Pt is incontinent of bladder, but states she usually knows when she has to have a BM. Attends has been changed and skin cleaned while on floor. Skin to coccyx is intact and pink. Pt has been turned and repositioned and turned q2h and as pt requests. Pt unable to tolerated TEDS d/t wounds to feet. 20 gauge IV placed in RAC upon arrival to floor. Xarelto being held for surgery tomorrow. Cardiology consulted earlier this shift. Consent obtained for both irrigation/debridement of (L) foot and runoff tomorrow, and placed on chart. Dr. Gomez in for assessment of pt and H&P @ 1820. Pt is currently resting in bed w/ eyes closed. VSS. Will continue to monitor.
--- NOTE | 2020-05-16 19:05 | PC.NURSE ---
report given to unique
[2020-05-16 20:00] VITALS: BP 137/64; PULSE 74; RESP 18; TEMP 36.9; O2SAT 96
[2020-05-16 20:22] LABS: POC Glucose,Bedside 243 (70-110)
--- NOTE | 2020-05-16 23:41 | PC.NURSE ---
initial assessment, BLE cool to touch, pallor in color, cap refill greater than 3 seconds, pulses palpable but faint in tibial pulse to right, unable to assess left due to dressing. Popliteal pulses faint but greater than tibial
[2020-05-17] VITALS (41 sets, daily range): BP systolic 80–153; BP diastolic 37–100; PULSE 61–96; RESP 14–20; TEMP 36.4–43; O2SAT 84–99; BMI 39.6; BMI 39.4
--- NOTE | 2020-05-17 | IR_ITS ---
APPROVED REPORT PROCEDURES Right femoral arterial access Catheter placed in the abdominal aorta Abdominal aortography Repositioning of the catheter in the abdominal aorta Bilateral iliofemoral runoff Catheter placement in the left popliteal artery Left popliteal artery angiogram Drug-coated balloon angioplasty to the left popliteal artery and left superficial femoral artery Bare-metal stent deployment to the left popliteal artery Bare-metal stent deployment to the mid to distal left superficial femoral artery Bare-metal stent deployment to the ostial left superficial femoral artery Aspiration thrombectomy to the left popliteal artery INDICATION Limb threatening ischemia, Cameron claudication class V left foot, 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 COMPLICATIONS None Estimated Blood Loss: less than 10 ml TECHNIQUE 1% lidocaine used anesthetize the right groin the right femoral artery was accessed via the Salinger technique and a 4 Haitian sheath was placed in the right femoral artery. A pigtail catheter was placed in the abdominal aorta and abdominal aortography was performed followed by repositioning in the distal abdominal aorta. Bilateral iliofemoral runoff was then performed. Following this therapeutic heparin was administered and an advantage wire was placed into the pigtail catheter and then placed into the left profunda femoris artery. The 4 Haitian sheath was exchanged for a 6 Haitian destination sheath. The advantage wire was then used to push through the occlusion in the left superficial femoral artery. A 5 mm x 250 mm drug-coated balloon was deployed reducing the stenosis. An additional 6 mm x 250 mm drug-coated balloon was then deployed for 3 minutes like the first balloon. Following this a 6 mm x 20 mm self-expanding Medtronic stent was deployed in the mid popliteal artery reducing a dissection. A CAT 8 penumbra was then used to aspirate a large thrombus in the popliteal artery thereby restoring excellent flow. An additional 6 mm x 8 mm EV 3 stent was deployed followed by a 7 mm x 40 mm EV 3 stent in the very ostial proximal segment of the left superficial femoral artery. A 5 mm balloon and then a 6 mm balloon was deployed in order to post dilate the 6 mm and 7 mm stents. Excellent angiographic results were obtained. At the end of the procedure protamine was given to the patient and some shortness of breath occurred which responded well to albuterol hand-held nebulizers racemic epinephrine and subcu epinephrine. The patient was transferred to the postop holding her stable condition ANGIOGRAPHIC RESULTS The infrarenal abdominal aorta is normal. The bilateral internal/external and common iliac arteries have mild atheromatous plaque Bilateral common femoral arteries are patent The right profunda femoris artery is patent. The right superficial femoral artery is patent in the proximal segment and then has mid vessel 80 and 90% stenoses in Romeo's canal. The right popliteal artery is patent but small caliber. There is three-vessel runoff below the knee on the right leg but the flow is slow due to the SFA popliteal disease Left profunda femoris artery is patent. The left superficial femoral artery is ostially occluded and occluded throughout its entire course and reconstitutes just at the pre-geniculate level via collaterals. 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
[2020-05-17 06:14] LABS: POC Glucose,Bedside 138 (70-110)
--- NOTE | 2020-05-17 10:16 | HMH.PNCARD ---
Subjective Date: 05/17/20 Time: 10:17 Principal diagnosis: PAD, non healing ulcer to bilateral LEs. Interval history: This is a 54-year-old white female who was admitted to the hospital for wounds to her lower extremities. The patient states that her left foot wounds had been very red and inflamed as well as having drainage. She states that she first noticed the wound on Friday and was having a lot of numbness, burning and tingling in her feet. Then she also noticed that her right lower extremity was having some cellulitis and an ulcer as well. The patient has known peripheral arterial disease with vascular procedures and her bilateral lower extremities. She has been admitted to the hospital and is getting IV antibiotics. She is scheduled to undergo debridement and irrigation on her left lower extremity today. However due to her poorly healing wound she is scheduled to have a left lower extremity runoff first today. She also has a wound to her right lower extremity which will also need to have a runoff as well. She denies any chest pain or pressure. She denies any shortness of breath. She does state that she does have some edema in her right foot associated with the ulcer at times. She denies any fever, chills, nausea, vomiting, diarrhea, PND or orthopnea. Exam Vital signs and Labs for Last 24 Hours: Temp Pulse Resp BP Pulse Ox 98.1 F 69 18 136/63 87 L 05/17/20 08:00 05/17/20 08:30 05/17/20 08:00 05/17/20 08:00 05/17/20 08:30 Laboratory Results - last 24 hr 05/16/20 14:10: WBC 8.6, RBC 4.53, Hgb 14.0, Hct 43.6, MCV 96.1, MCH 30.9, MCHC 32.1, RDW 13.5, Plt Count 308, MPV 9.1, Neut % (Auto) 64.1, Lymph % (Auto) 26.4, Evangeline % (Auto) 4.4, Eos % (Auto) 4.4, Baso % (Auto) 0.7, Neut # (Auto) 5.5, Lymph # (Auto) 2.3, Evangeline # (Auto) 0.4, Eos # (Auto) 0.4, Baso # (Auto) 0.1 05/16/20 14:10: Sodium 140, Potassium 3.9, Chloride 99, Carbon Dioxide 35 H, Anion Gap 9.9, BUN 22 H, Creatinine 0.60, Estimated Creat Clear 201, Estimated GFR 104, Est GFR ( Amer) 126, Glucose 196 H, Calcium 9.4, Total Bilirubin 0.4, AST 20, ALT 15, Alkaline Phosphatase 107, C-Reactive Protein 15.1 H, Total Protein 7.7, Albumin 3.8, Globulin 3.9 H, Albumin/Globulin Ratio 1.0 L 05/16/20 14:10: ESR 36 H 05/16/20 14:10: SARS-CoV-2 IgG Ab (Rapid) Negative, SARS-CoV-2 IgM Ab (Rapid) Negative 05/16/20 16:16: POC Glucose 233 H 05/16/20 20:12: POC Glucose 243 H 05/17/20 06:04: POC Glucose 138 H I & O for Last 24 hours: Intake & Output 05/14/20 05/15/20 05/16/20 05/17/20 23:59 23:59 23:59 23:59 Intake Total 730 / 730 1110 / 1110 Output Total Balance 729 / 729 1110 / 1110 Weight 261 lb 11.019 oz 267 lb 10.259 oz - Constitutional no acute distress, obese - *Routine HEENT Exam Head: Present: normocephalic Eye: Present: EOMI, PERRL ENT: Present: mucous membranes moist - *Routine Neck Exam Present: supple, full ROM, normal carotid upstroke. Absent: JVD, carotid bruit, lymphadenopathy - *Routine Respiratory Exam Present: CTA bilaterally - *Routine Cardiovascular Exam Present: RRR, Normal S1, Normal S2. Absent: murmur - *Routine Abdominal Exam Present: soft, normoactive bowel sounds. Absent: tenderness, distended - *Routine Extremities Exam Present: edema (Right foot). Absent: cyanosis, clubbing, pulses intact, normal capillary refill - *Routine Skin Exam Present: erythema, warm. Absent: intact (Wounds with dressings noted to her bilateral lower extremities), rash - *Routine Neurological Exam Present: alert, oriented X3, CN II-XII intact. Absent: sensory deficit, motor deficit Progress Note: A&P (1) Cellulitis of right foot Status: Acute Current Visit: Yes (2) Gangrene of left foot Status: Acute Current Visit: Yes (3) Abnormal ankle brachial index (NICOLAS) Status: Acute Current Visit: No (4) Amputation of one or more toes Status: Acute Current Visit: No (5) Cellulitis of left foot Status:
--- NOTE | 2020-05-17 10:50 | HMH.ACPN2 ---
Internal Medicine - PN: Subj *Date: 05/17/20 *Time: 11:55 Interval history: 54-year-old female patient lying in bed resting, she reports she had a good night and denies pain. She reports that she was admitted to for a stroke earlier this year she was discharged from there and sent to [facility] for rehabilitation, was D/C from there for 1 week and was in [facility] for appt. then admitted from there. She does have residual right-sided weakness from her CVA and lives with sister and son, has difficulty ambulating and has home health care established with [facility]. Dr. Rutledge has seen and rec: Discussed plan of care with Dr. Patterson and Ghassan Ordaz/Diane. Dr. Contreras to move attempted revascularization of the left lower extremity tomorrow morning. If he is unsuccessful/unable then he will attempt right lower extremity revascularization. Will plan for amputation surgery tomorrow afternoon. I called the patient at 1900 today and discussed plan of care. She verbalized understanding and is agreement with the treatment plan. Exam Vital signs and Labs for Last 24 Hours: Temp Pulse Resp BP Pulse Ox 98.1 F 69 18 136/63 87 L 05/17/20 08:00 05/17/20 08:30 05/17/20 08:00 05/17/20 08:00 05/17/20 08:30 Laboratory Results - last 24 hr 05/16/20 14:10: WBC 8.6, RBC 4.53, Hgb 14.0, Hct 43.6, MCV 96.1, MCH 30.9, MCHC 32.1, RDW 13.5, Plt Count 308, MPV 9.1, Neut % (Auto) 64.1, Lymph % (Auto) 26.4, [place] % (Auto) 4.4, Eos % (Auto) 4.4, Baso % (Auto) 0.7, Neut # (Auto) 5.5, Lymph # (Auto) 2.3, [place] # (Auto) 0.4, Eos # (Auto) 0.4, Baso # (Auto) 0.1 05/16/20 14:10: Sodium 140, Potassium 3.9, Chloride 99, Carbon Dioxide 35 H, Anion Gap 9.9, BUN 22 H, Creatinine 0.60, Estimated Creat Clear 201, Estimated GFR 104, Est GFR ( Amer) 126, Glucose 196 H, Calcium 9.4, Total Bilirubin 0.4, AST 20, ALT 15, Alkaline Phosphatase 107, C-Reactive Protein 15.1 H, Total Protein 7.7, Albumin 3.8, Globulin 3.9 H, Albumin/Globulin Ratio 1.0 L 05/16/20 14:10: ESR 36 H 05/16/20 14:10: SARS-CoV-2 IgG Ab (Rapid) Negative, SARS-CoV-2 IgM Ab (Rapid) Negative 05/16/20 16:16: POC Glucose 233 H 05/16/20 20:12: POC Glucose 243 H 05/17/20 06:04: POC Glucose 138 H I & O for Last 24 hours: Intake & Output 05/14/20 05/15/20 05/16/20 05/17/20 23:59 23:59 23:59 23:59 Intake Total 730 / 730 1110 / 1110 Output Total Balance 729 / 729 1110 / 1110 Weight 261 lb 11.019 oz 266 lb 12.149 oz - Constitutional no acute distress, obese, chronically ill appearing - *Routine HEENT Exam Head: Present: normocephalic ENT: Present: mucous membranes dry - *Routine Neck Exam Present: trachea midline. Absent: JVD, tracheal deviation - *Routine Respiratory Exam Present: wheezes, diminished air movement. Absent: accessory muscle use - *Routine Cardiovascular Exam Present: RRR - *Routine Abdominal Exam Present: soft, normoactive bowel sounds. Absent: tenderness, firm - *Routine Extremities Exam Present: CHRIS stockings - *Routine Skin Exam Present: warm, wounds Comments: Drsg to L foot - *Routine Neurological Exam Present: alert, oriented X3. Absent: altered mental status - Routine Psychiatric Exam Present: normal affect, normal thought process Assessment and Plan (1) Cellulitis of right foot Current visit: Yes Status: Acute Category: Medical Code(s): L03.115 - Cellulitis of right lower limb (2) Gangrene of left foot Current visit: Yes Status: Acute Category: Medical Code(s): I96 - Gangrene, not elsewhere classified (3) Abnormal ankle brachial index (NICOLAS) Current visit: No Status: Acute Category: Medical Code(s): R68.89 - Other general symptoms and signs (4) Amputation of one or more toes Current visit: No Status: Acute Qualifiers: Laterality: left Qualified Code(s): S98.132A - Complete traumatic amputation of one left lesser toe, initial encounter Category: Medical
--- NOTE | 2020-05-17 11:31 | PC.NURSE ---
PATIENT OFF FLOOR FOR RUN OFF IN [facility] AND WILL BE TRANSPORTED TO OR FROM [facility].
--- NOTE | 2020-05-17 12:41 | PC.NURSE ---
Upon arrival of clam bed laborer, i found that the PT was not prepped in the groin area. I did not receive report this morning as there was no shift supervisor tech. I did tell Morenita from clam bed laborer that i would prep the PT before she went down and she stated she would take care of it and not to worry.
[2020-05-17 14:17] LABS: CATHL Activated Clotting Time 311 SEC (74-125)
[2020-05-17 14:40] LABS: CATHL Activated Clotting Time 159 SEC (74-125)
[2020-05-17 15:05] LABS: Microscopic, Urine URINE MICROSCOPIC (MICROSCOPIC)
[2020-05-17 15:24] LABS: Appearance,Urine CLEAR (Clear); Bilirubin,Urine Negative (Negative); Blood, Urine Negative (Negative); Color,Urine YELLOW (Yellow); Glucose,Urine (UA) Negative (Negative); Ketones,Urine Negative (Negative); Leukocyte Esterase,Urine Negative (Negative); Nitrate,Urine Negative (Negative); Protein,Urine 1+ (Negative); Urobilinogen,Urine 0.2 EU/dl (0.2)
--- NOTE | 2020-05-17 15:35 | HMH.ANESCL ---
[facility] Anesthesia Checklist - Patient Identification Patient Identification: Arm Band - Structural Data Admitted From: Home Planned Operative Procedure/s: right foot I&D, left foot transmetatarsal amputation Consent for Planned Operative Procedure(s) Verified: Yes Verified Documents: Surgical Consent, History and Physical - NPO Status Verified Time NPO: 00:00 - Additional verifications Anesthesia Reactions: No Hx Blood Transfusions: No Blood Transfusion Reaction: No - Airway Assessment C-Spine Mobility Assessed: Yes (mp2) TMJ Mobility Assessed: Yes Dentition: Edentulous - Neurological Assessment Level of Consciousness: Awake, Alert - Anesthesia Plan Anesthesia Risk discussed: Yes Anesthesia Plan: Verified ASA Class: III Anesthesia Type: General [facility] History I have reviewed the patient's past medical history: Yes Medical History: Reports:: Anxiety, Chronic Obstructive Pulmonary Disease (COPD), Coronary Artery Disease, Cerebrovascular Accident, Depression, Diabetes Mellitus Type 2, Hyperlipidemia, Hypertension, Peripheral Artery Disease, Peripheral Vascular Disease Denies:: Cancer, Diabetes Mellitus Type 1, Internal Pacemaker, MRSA, Seizures *Have you ever received a pneumonia vaccine?: No *Have you received a flu vaccine this season?: Yes Other Medical History: Reports: Hypothyroidism. Denies: Blood Transfusion Reaction Anesthesia experience/problems:: nac Laterality Cases: Bilateral: Other Other Surgeries: Yes: Cardiac Catheterization, Cardiac Surgery, Coronary Stent, Thyroidectomy, Tubal Ligation, Other. No: Pacemaker Amputation: Yes (Toe left big) Fractures: No - *Social History Last grade of school completed: GED Smoking Status: Former smoker Tobacco Type: cigarettes # Packs/Day (cigarettes): 1 #Yrs smoked (if former smoker): 30 Alcohol Intake: never Substance Use Type: denies use *Occupational Status:: disabled Housing: house Household Members: family *Travel in the last 8 weeks: None - Psychiatric History Pschychiatric History:: Reports:: Anxiety, Depression Family Hx:: Cancer, Heart Attack
[2020-05-17 15:52] LABS: Bacteria,Urine Trace /lpf; Squamous Epithelial Cell,Urine Occasional #/hpf (0-5); WBC,Urine Occasional #/hpf (0-3)
--- NOTE | 2020-05-17 17:02 | HMH.ANESI ---
[facility] Anesthesia Record Part I Intake, IV Amount: 1,400 Estimated blood loss (mL): 20 Urine output (mL): 0 Blood Pressure: 88/51 SaO2: 94 Pulse Rate: 89 Respiratory Rate: 16 Temperature: 97.5 F Patient is:: Drowsy, Stable Stable to PACU at:: 17:00
--- NOTE | 2020-05-17 17:13 | XR_ITS ---
PROCEDURE: XR FOOT LT MIN 3V CLINICAL INDICATION: Post op amp COMPARISON: XR FOOT WT BEARING LT 3V from 03/16/2020 XR FOOT WT BEARING LT 3V from 05/11/2020 XR FOOT RT MIN 3V from 05/16/2020 XR FOOT LT MIN 3V from 05/16/2020 FINDINGS: Status post midfoot amputation with amputation site at the talonavicular and calcaneocuboid region. Surgical clips and postsurgical drain present. The margin of the calcaneus is somewhat obscured anteriorly and may be due to the overlying surgical dressing. IMPRESSION: Midfoot amputation as described above Dictated by: Jamison Jj MD 05/18/2020 07:46 Electronically signed by Jamison Jj MD in [place] 05/18/2020 07:46
[2020-05-17 17:17] LABS: POC Glucose,Bedside 215 (70-110)
--- NOTE | 2020-05-17 17:17 | HMH.OPNOTE ---
Date of procedure: 05/17/20 Pre-op Diagnosis:: 1. Right foot diabetic ulcer 2. Left foot diabetic ulcer 3. Left gangrene, osteomyelitis 4. Left arterial ulcer 5. B/L foot cellulitis 6. PAD Post-op Diagnosis:: Same Procedure performed:: 1. Right foot wound debridement 2. Left foot Chopart's amputation 3. B/L foot irrigation and debridement/incision and drainage 4. Left calcaneus percutaneous bone biopsy 5. Left foot callus debridement 6. Left derotational skin flap Surgeon:: Amy Rutledge DPM DOOR CLAMP OPERATOR:: Yosvany Rao Anesthesia: GETA Estimated blood loss (mL): 20 Clinical Note:: Ms. Pitt is a 54-year-old female who was admitted 05/16/[address] Patterson for IV antibiotics. Patient has severe vascular disease, repeat ABIs done yesterday showed lack of blood flow and critical limb ischemia to the left lower extremity. Cardiology team consulted and Dr. Contreras did procedure and started heparin to increase blood flow to the lower extremities. Patient was taken to the OR for right foot wound debridement and left foot amputation after vascular intervention. Operative findings:: This bilateral foot cellulitis has improved. The right foot had an ulcer on the dorsal lateral midfoot. Post debridement with a 15 blade and pickup the wound base was 60% granular and 40% fibrotic tissue. Post debridement the wound measured 1.2 x 1.5 x 0.2 cm. The left foot had a gangrenous lateral wound and several arterial ulcers noted. The foot was disarticulated at the level tarsometatarsal joints and there was necrotic tissue laterally. The underlying muscle was necrotic as well as moss with peeling and sloughing of tendons. Choparts amputation performed. There was also a small calcaneal ulcer noted medial plantarly that measured 0.7 x 0.7 x 0.3 cm, wound base 100% granular. The bone at the level of fifth metatarsal soft and broke into pieces without power resection. Discussed if the wound does not heal she will need a more proximal amputation. Patient is high risk for a BKA versus AKA. Operative note:: On this date and time patient was deemed an appropriate surgical candidate. With informed consent signed, the patient was taken to the operating theater directly from the Flexographic Press Plate Setter. The patient was positioned supine. General anesthesia was induced. No tourniquet tourniquet used. B/L foot irrigation and debridement/incision and drainage, right foot wound ulcer debridement: The right lower extremity was prepped and draped in normal sterile fashion. Utilizing a 15 blade and pickups the right foot ulcer was sharply excisionally debrided through skin into subcutaneous tissue. All necrotic nonviable tissue was sharply debrided. The wound base was 60% granular and 40% fibrotic tissue. Post debridement the wound measured 1.2 x 1.5 x 0.2 cm. Wound flushed with saline. A Betadine dry sterile dressing was applied. Left foot callus debridement, percutaneous calcaneal bone biopsy: The left lower extremity was then prepped and draped in a normal sterile fashion. Callus noted to the posterior inferior heel. It was sharply debrided with a 15 blade. There was purulence noted from the area, it was creamy green and wound culture was taken. There was an underlying ulcer noted to the inferior heel. Post debridement sharply excisionally through the skin and subcutaneous tissue the wound was 100% granular and measured 0.7 x 0.7 x 0.3 cm. At this point attention was directed several centimeters superior to the ulcer. 15 blade used to make a stab incision and a Jamshidi needle was used to take a piece of the bone. That calcaneal bone was sent to pathology and as a bone culture. Left Chopart's amputation: There were ulcers noted to the dorsal lateral left foot as well as the calcaneus and a large gangrenous necrotic ulcer to the lateral foot overlying the fifth metatarsal. Incision was mapped out surrounding the ulcers leaving all viable tissue medially to use as a flap. 15 blade used t
--- NOTE | 2020-05-17 17:45 | SW/DCPLANNER ---
This patient currently receives services from [facility]. I will follow up with this patient in the AM regarding discharges plans once medically stable for discharge.
[2020-05-17 17:50] LABS: Vancomycin,Trough 13.5 ug/mL (5.0-10.0)
--- NOTE | 2020-05-17 20:23 | PC.NURSE ---
1725 PATIENT ARRIVED BACK ON FLOOR VIA STRETCHER. PATIENT COMPLAINED OF BACK PAIN, THIS RN ADMINISTERED TYLENOL FOR PAIN. PATIENT BP WAS IN THE LOW 90'S/50'S. LUBNA MORNING NEWS PRODUCER STATED THAT PER [place] [place], BP IS OKAY LONG IT IS ABOVE 80'S. THIS RN DRAINED LEFT FOOT, 10ML OF BLOODY DISCHARGE NOTED. PATIENT SAT UP AT 1930 AND TOLERATED WELL. NO OTHER NEEDS OR CONCERNS AT THIS TIME.
--- NOTE | 2020-05-17 21:49 | PC.NURSE ---
Pt's room air sat at rest = 84%.
[2020-05-18] VITALS (16 sets, daily range): BP systolic 95–133; BP diastolic 44–85; PULSE 66–89; RESP 16–22; TEMP 36.4–37; O2SAT 2–100; BMI 39.5
--- NOTE | 2020-05-18 | IR_ITS ---
APPROVED REPORT PROCEDURES Left femoral arterial access Right superficial femoral artery angiogram Drug-coated balloon angioplasty to the superficial femoral and popliteal artery INDICATION Cameron claudication class IV and V, Ischemic right lower extremity ulcer, Limb threatening ischemia Informed consent was obtained prior to the procedure. COMPLICATIONS None Estimated Blood Loss: less than 10 ml TECHNIQUE 1% lidocaine used anesthetize the left groin left femoral artery was accessed via the Salinger technique and a 6 Syrian sheath was placed in the left femoral artery. Therapeutic heparin was administered. A rim catheter was then placed in the right common iliac artery and an advantage wire was advanced under fluoroscopic guidance into the right superficial femoral artery. The short 6 Syrian sheath sheath was exchanged for a long destination sheath. The advantage wire was used to traverse the stenosis in the right superficial femoral popliteal artery and a 5 mm x 120 mm drug-coated balloon was deployed at 12 irma for 3 minutes reducing the stenosis to less than 20% with excellent angiographic results. At the end of the procedure the apparatus was removed the groin was reprepped gloves were changed sheath was removed good hemostasis was achieved using Perclose device patient was transferred to the postop holding area stable condition IMPRESSION Successful drug-coated balloon angioplasty to severely stenosed right superficial femoral artery and right popliteal artery reducing the stenosis to less than 20% and providing normal inline flow to the right lower extremity PLAN 1. Continue standard care as described from yesterday Electronically signed by : Yasmani Contreras, 05/18/2020 13:46:25
[2020-05-18 06:22] LABS: POC Glucose,Bedside 381 (70-110)
[2020-05-18 06:54] LABS: Basophils % 0.1 % (0.1-2.0); Eosinophils % 0.1 % (0.1-12.0); Hematocrit 32.8 % (37.0-47.0); Lymphocytes # 1.2 K/mm3 (0.7-4.5); Lymphocytes % 8.4 % (10-50); Mean Corpuscular HGB Conc 33.6 g/dL (31.8-35.4); Mean Corpuscular Hemoglobin 31.4 pg (27.0-31.2); Mean Corpuscular Volume 93.4 fl (81-99); Mean Platelet Volume 9.9 fl (7.4-10.4); Monocytes # 0.6 K/mm3 (0.1-1.0); Monocytes % 3.8 % (1.7-9.3); Neutrophils # 12.7 K/mm3 (1.8-7.8); Neutrophils % 87.7 % (37.0-80.0); Platelet Count 259 K/mm3 (142-424); Red Blood Count 3.51 M/mm3 (4.20-5.40); Red Cell Distribution Width 13.8 % (11.5-17.5); White Blood Count 14.5 K/mm3 (4.8-10.8)
[2020-05-18 06:58] LABS: MANUAL DIFFERENTIAL MANUAL DIFFERENTIAL (MANUAL DIFF)
--- NOTE | 2020-05-18 07:03 | P.PN_ITS ---
[facility] Anesthesia Record Part II Discharge Time: 17:30 Destination: Medical Surgical Department PACU nurse assessment reviewed?: Yes Patient Condition:: Good Anesthesia Complications:: None Swallowing reflex intact?: Yes Cyanosis?: No Blood Pressure: 95/57 Pulse Rate: 88 Temperature: 97.6 F Mental Status: Alert & Oriented Pain level:: 0 Nausea and/or vomitting:: None Intake, IV Amount: 0
[2020-05-18 07:05] LABS: Chloride 97 mmol/L (98-107); Sodium 132 mmol/L (136-145)
[2020-05-18 07:06] LABS: Potassium 5.1 mmoL/L (3.5-5.1)
[2020-05-18 07:08] LABS: Alanine Aminotransferase 17 U/L (12-78); Albumin Level 2.9 g/dl (3.5-5.0); Albumin/Globulin Ratio 1.1 (1.1-1.8); Alkaline Phosphatase 70 U/L (38-126); Anion Gap 11.1 mEq/L (5-15); Aspartate Amino Transferase 24 U/L (14-36); Bilirubin,Total 0.3 mg/dl (0.2-1.3); Blood Urea Nitrogen 26 mg/dl (7-17); Carbon Dioxide 29 mmol/L (22.0-30.0); Creatinine Clearance Estimated 136 mL/min (50-200); Estimated Glomerular Filt Rate 65 ml/min (>60); GFR (African American) 79 ML/MIN (>60); Globulin 2.7 g/dL (1.3-3.2); Glucose 388 mg/dl (74-100); Total Protein,Serum 5.6 g/dl (6.3-8.2)
[2020-05-18 07:44] LABS: Chol/HDL Ratio 3.1 (1-3.5); Cholesterol 132 mg/dl (140-200); HDL Cholesterol 43 mg/dl (40-60); Triglycerides 120 mg/dl (30-150); VLDL Cholesterol 24 mg/dL (0-40)
[2020-05-18 07:49] LABS: Calcium 8.1 mg/dl (8.4-10.2)
[2020-05-18 07:55] LABS: Direct LDL Cholesterol 70.57 mg/dL (100-129)
[2020-05-18 08:27] LABS: Lymphocytes % 8 % (10-50); Monocytes % 4 % (2-9); Neutrophils % 88 % (42-76); Total Cells Counted 100
[2020-05-18 08:28] LABS: Platelet Estimate Normal; RBC Morphology Normal
[2020-05-18 08:34] LABS: Erythrocyte Sedimentation Rate 70 mm/hr (0-30)
[2020-05-18 08:38] LABS: POC Glucose,Bedside 389 (70-110)
[2020-05-18 08:38] LABS: POC Glucose,Bedside 372 (70-110)
--- NOTE | 2020-05-18 08:59 | HMH.ORTHPN ---
Subjective Date: 05/18/20 Time: 07:40 Principal diagnosis: PAD, non healing ulcer to bilateral LEs. Interval history: Patient was resting comfortably at the bedside. She reports some pain to the legs and feet. Her dressings were clean dry and intact. She denies shortness of breath chest pain, nausea and vomiting, fever and chills. PN: Obj Ex Vital signs: Temp Pulse Resp BP Pulse Ox 97.8 F 70 16 100/56 L 93 L 05/18/20 08:00 05/18/20 08:00 05/18/20 08:00 05/18/20 08:00 05/18/20 08:00 - Constitutional no acute distress - Routine HEENT Exam Head: Present: normocephalic - Routine Neck Exam Present: supple - Routine Respiratory Exam Absent: respiratory distress - Routine Abdominal Exam Present: soft - Detailed Lower Extremity Exam Comments: Right foot edema and erythema has significantly improved. The right foot had an ulcer on the dorsal lateral midfoot. Post debridement with a 15 blade the wound base was 60% granular and 40% fibrotic tissue. Post debridement the wound measured 1.2 x 1.5 x 0.2 cm. The left foot has SERGIO drain intact at the dorsal medial incision. Skin abraham and sutures clean dry and intact to the amp site as well as the calcaneal biopsy site. There is a small calcaneal ulcer noted to the inferior left calcaneus, medial plantarly that measured 0.7 x 0.7 x 0.3 cm, wound base 100% granular. No new gangrene or necrotic tissue noted. - Routine Skin Exam Present: erythema, dry, wounds, ecchymosis. Absent: gangrene - Routine Neurological Exam Present: alert - Routine Psychiatric Exam Present: normal affect - Urinary Catheter Management Nix Cath placed during this visit: no Progress Note: A&P (1) Cellulitis of right foot Status: Acute Current Visit: Yes (2) Gangrene of left foot Status: Acute Current Visit: Yes (3) Abnormal ankle brachial index (NICOLAS) Status: Acute Current Visit: No (4) Amputation of one or more toes Status: Acute Current Visit: No (5) Cellulitis of left foot Status: Acute Current Visit: No (6) Claudication Status: Acute Current Visit: No (7) Diabetic Foot Ulcer Status: Acute Current Visit: No (8) Peripheral arterial occlusive disease Status: Chronic Current Visit: No (9) Type 2 diabetes mellitus with diabetic neuropathy, with long-term current use of insulin Status: Chronic Current Visit: No (10) Recent cerebrovascular accident (CVA) Status: Acute Current Visit: No (11) Tobacco dependence syndrome Status: Acute Current Visit: No (12) Ulcer of left foot due to type 2 diabetes mellitus Status: Acute Current Visit: No (13) Hyperlipidemia Status: Chronic Current Visit: No (14) Hypertensive heart disease without heart failure Status: Chronic Current Visit: No (15) Coronary arteriosclerosis Status: Chronic Current Visit: No Assessment and Plan for All Diagnoses:: 05/18/20, s/p: right foot wound debridement, b/l foot irrigation and debridement/incision and drainage S/p: left foot Chopart's amputation, calcaneus percutaneous bone biopsy, foot callus debridement, derotational skin flap POD #1 Right foot wound looks stable. 15 blade was used to sharply debride and crosshatch the wound. No bleeding noted. Area was cleansed and a Betadine dressing applied. Left foot SERGIO drain intact with 10 cc of sanguinous output. Sutures and skin abraham intact. Small calcaneal ulcer noted with no drainage. Area was cleansed and a Betadine dressing applied. Overall surgical sites look stable. Edema and erythema has improved from Friday. I explained to the patient if the amputation site on the left does not heal she will need a more proximal amputation, below-knee or above-knee. I also explained if the calcaneal biopsies come back with osteomyelitis she will also likely need a more proximal amputation. Plan/home health care orders: 1. Maintain bilateral foot dressings clean d
--- NOTE | 2020-05-18 08:59 | HMH.ACPN2 ---
Internal Medicine - PN: Subj *Date: 05/18/20 *Time: 08:59 Interval history: The patient was taken to the operating room by Dr. Jaime. Going to the [employer] with Dr. Contreras for another attempted revascularization. She remains on antibiotics and is clinically stable. Exam Vital signs and Labs for Last 24 Hours: Temp Pulse Resp BP Pulse Ox 97.8 F 70 16 100/56 L 93 L 05/18/20 08:00 05/18/20 08:00 05/18/20 08:00 05/18/20 08:00 05/18/20 08:00 Laboratory Results - last 24 hr 05/17/20 11:46: Activated Clotting Time 311 H* 05/17/20 13:40: Activated Clotting Time 159 H* D 05/17/20 14:20: Urine Color Yellow, Urine Appearance Clear, Urine pH 6.0, Ur Specific [place] 1.010, Urine Protein 1+, Urine Glucose (UA) Negative, Urine Ketones Negative, Urine Blood Negative, Urine Nitrate Negative, Urine Bilirubin Negative, Urine Urobilinogen 0.2, Ur Leukocyte Esterase Negative, Urine WBC Occasional, Ur Squamous Epith Cells Occasional, Urine Bacteria Trace 05/17/20 17:10: Vancomycin Trough 13.5 H 05/17/20 17:10: POC Glucose 215 H 05/17/20 21:12: POC Glucose 372 H* 05/17/20 21:13: POC Glucose 389 H* 05/18/20 06:09: POC Glucose 381 H* 05/18/20 06:34: WBC 14.5 H D, RBC 3.51 L, Hgb 11.0 L, Hct 32.8 L, MCV 93.4, MCH 31.4 H, MCHC 33.6, RDW 13.8, Plt Count 259, MPV 9.9, Neut % (Auto) 87.7 H, Lymph % (Auto) 8.4 L, [place] % (Auto) 3.8, Eos % (Auto) 0.1, Baso % (Auto) 0.1, Neut # (Auto) 12.7 H, Lymph # (Auto) 1.2, [place] # (Auto) 0.6, Eos # (Auto) 0.0, Baso # (Auto) 0.0, Total Counted 100, Neutrophils % (Manual) 88 H, Lymphocytes % (Manual) 8 L, Monocytes % (Manual) 4, Platelet Estimate Normal, RBC Morphology Normal 05/18/20 06:34: Conjugated Bilirubin 0.0, C-Reactive Protein 47.0 H D, Triglycerides 120, Cholesterol 132 L, LDL Cholesterol Direct 70.57 L, VLDL Cholesterol 24, HDL Cholesterol 43, Cholesterol/HDL Ratio 3.1 05/18/20 06:34: ESR 70 H 05/18/20 06:34: Sodium 132 L, Potassium 5.1 D, Chloride 97 L, Carbon Dioxide 29, Anion Gap 11.1, BUN 26 H, Creatinine 0.90 D, Estimated Creat Clear 136, Estimated GFR 65, Est GFR ( Amer) 79 D, Glucose 388 H, Calcium 8.1 L D, Total Bilirubin 0.3, AST 24, ALT 17, Alkaline Phosphatase 70, Total Protein 5.6 L D, Albumin 2.9 L, Globulin 2.7, Albumin/Globulin Ratio 1.1 I & O for Last 24 hours: Intake & Output 05/15/20 05/16/20 05/17/20 05/18/20 23:59 23:59 23:59 23:59 Intake Total 730 / 730 2510 / 2510 1077 / 1077 Output Total 10 / 410 400 / 400 Balance 729 / 729 2500 / 2100 677 / 677 Weight 261 lb 11.019 oz 266 lb 12.149 oz 266 lb 15.677 oz Microbiology Reports for the Last 24 Hours: Microbiology 05/17/20 Unknown Foot,Left - Left Gram Stain - Final 05/17/20 Unknown Foot,Left - Final Not Reportable 05/17/20 Unknown Foot,Left - Final Not Reportable 05/17/20 Unknown Foot,Left - Final Not Reportable 05/17/20 Unknown Foot,Left - Final Not Reportable 05/17/20 Unknown Foot,Left - Final Not Reportable 05/17/20 Unknown Foot,Left - Final Not Reportable 05/17/20 Unknown Foot,Left - Final Not Reportable 05/17/20 Unknown Foot,Left - Final Not Reportable 05/17/20 Unknown Foot,Left - Final Not Reportable 05/17/20 Unknown Foot,Left Gram Stain Comment - Final Not Reportable - *Routine HEENT Exam Head: Present: atraumatic Eye: Present: conjunctivae pink. Absent: periorbital ecchymosis ENT: Present: mucous membranes moist - *Routine Respiratory Exam Present: CTA bilaterally. Absent: accessory muscle use, decreased breath sounds - *Routine Cardiovascular Exam Present: RRR, Normal S1, Normal S2 - *Routine Abdominal Exam Abse
--- NOTE | 2020-05-18 09:52 | PC.NURSE ---
Pt is A&Ox3 and has prev. CVA deficits to her right limbs, right eye, and vision difficulty. Pt has c/o pain 3x this shift, medicated per MAR with good pain relief on reassessment. Surgically placed dressing to Bilat feet are C/D/I, SERGIO drain in place to L foot draining minimal amount of sanguineous fluid. Lungs diminished t/o on auscultation, with sats low 90's. Pt is home dependent on 2LPM of O2. Room air sat of 86% this shift. Nix in place draining clear ylw urine to gravity.
--- NOTE | 2020-05-18 10:39 | XR_ITS ---
PROCEDURE: XR CHEST PORTABLE PICC PLAC CLINICAL HISTORY: Confirm PICC line placement COMPARISON: CHESTWO CT chest wo con from 10/28/2018 [id number] XR ribs RT min 3V w CXR1V from 02/18/2019 XR CHEST 2V from 01/03/2020 XR CHEST PORTABLE from 05/16/2020 FINDINGS: Left upper extremity PICC line has been inserted. The tip is difficult to visualize with certainty. Recommend repeat exam with better penetration. The tip may be in the SVC region however, this is uncertain. There are mild atelectatic changes in the left lung base No acute bony abnormalities. IMPRESSION: Left upper extremity PICC line present. The tip may be in the SVC however, this is uncertain and repeat exam is suggested Dictated by: Jamison Jj MD 05/18/2020 11:48 Electronically signed by Jamison Jj MD in [place] 05/18/2020 11:48
--- NOTE | 2020-05-18 10:47 | HMH.PNCARD ---
Subjective Date: 05/18/20 Time: 10:47 Principal diagnosis: PAD, non healing ulcer to bilateral LEs. Interval history: 54 yo WF in bed in NAD. Surgery to both LE's yesterday. Both wrapped in gauze today. Pt planning to go home with [facility]. Exam Vital signs and Labs for Last 24 Hours: Temp Pulse Resp BP Pulse Ox 97.8 F 70 16 100/56 L 93 L 05/18/20 08:00 05/18/20 08:00 05/18/20 08:00 05/18/20 08:00 05/18/20 08:00 Laboratory Results - last 24 hr 05/17/20 11:46: Activated Clotting Time 311 H* 05/17/20 13:40: Activated Clotting Time 159 H* D 05/17/20 14:20: Urine Color Yellow, Urine Appearance Clear, Urine pH 6.0, Ur Specific [place] 1.010, Urine Protein 1+, Urine Glucose (UA) Negative, Urine Ketones Negative, Urine Blood Negative, Urine Nitrate Negative, Urine Bilirubin Negative, Urine Urobilinogen 0.2, Ur Leukocyte Esterase Negative, Urine WBC Occasional, Ur Squamous Epith Cells Occasional, Urine Bacteria Trace 05/17/20 17:10: Vancomycin Trough 13.5 H 05/17/20 17:10: POC Glucose 215 H 05/17/20 21:12: POC Glucose 372 H* 05/17/20 21:13: POC Glucose 389 H* 05/18/20 06:09: POC Glucose 381 H* 05/18/20 06:34: WBC 14.5 H D, RBC 3.51 L, Hgb 11.0 L, Hct 32.8 L, MCV 93.4, MCH 31.4 H, MCHC 33.6, RDW 13.8, Plt Count 259, MPV 9.9, Neut % (Auto) 87.7 H, Lymph % (Auto) 8.4 L, [place] % (Auto) 3.8, Eos % (Auto) 0.1, Baso % (Auto) 0.1, Neut # (Auto) 12.7 H, Lymph # (Auto) 1.2, [place] # (Auto) 0.6, Eos # (Auto) 0.0, Baso # (Auto) 0.0, Total Counted 100, Neutrophils % (Manual) 88 H, Lymphocytes % (Manual) 8 L, Monocytes % (Manual) 4, Platelet Estimate Normal, RBC Morphology Normal 05/18/20 06:34: Conjugated Bilirubin 0.0, C-Reactive Protein 47.0 H D, Triglycerides 120, Cholesterol 132 L, LDL Cholesterol Direct 70.57 L, VLDL Cholesterol 24, HDL Cholesterol 43, Cholesterol/HDL Ratio 3.1 05/18/20 06:34: ESR 70 H 05/18/20 06:34: Sodium 132 L, Potassium 5.1 D, Chloride 97 L, Carbon Dioxide 29, Anion Gap 11.1, BUN 26 H, Creatinine 0.90 D, Estimated Creat Clear 136, Estimated GFR 65, Est GFR ( Amer) 79 D, Glucose 388 H, Calcium 8.1 L D, Total Bilirubin 0.3, AST 24, ALT 17, Alkaline Phosphatase 70, Total Protein 5.6 L D, Albumin 2.9 L, Globulin 2.7, Albumin/Globulin Ratio 1.1 I & O for Last 24 hours: Intake & Output 05/15/20 05/16/20 05/17/20 05/18/20 11:59 11:59 11:59 11:59 Intake Total 1840 / 1840 2477 / 2477 Output Total 410 / 410 Balance 1839 / 1839 2067 / 2067 Weight 266 lb 12.149 oz 266 lb 15.677 oz Microbiology Reports for the Last 24 Hours: Microbiology 05/17/20 Unknown Foot,Left - Left Gram Stain - Final 05/17/20 Unknown Foot,Left - Left Wound Culture - Preliminary 05/17/20 Unknown Foot,Left - Final Not Reportable 05/17/20 Unknown Foot,Left - Final Not Reportable 05/17/20 Unknown Foot,Left - Final Not Reportable 05/17/20 Unknown Foot,Left - Final Not Reportable 05/17/20 Unknown Foot,Left - Final Not Reportable 05/17/20 Unknown Foot,Left - Final Not Reportable 05/17/20 Unknown Foot,Left - Final Not Reportable 05/17/20 Unknown Foot,Left - Final Not Reportable 05/17/20 Unknown Foot,Left - Final Not Reportable 05/17/20 Unknown Foot,Left Gram Stain Comment - Final Not Reportable - *Routine Respiratory Exam Present: CTA bilaterally. Absent: accessory muscle use, rales, rhonchi, wheezes - *Routine Cardiovascular Exam Present: RRR. Absent: murmur, gallop, rubs - *Routine Extremities Exam Present: edema. Absent: calf tenderness Comments: both feet wrapped in gauze. - *Routine Neurological Exam Present: alert, oriented X3, moving all e
--- NOTE | 2020-05-18 11:02 | SW/DCPLANNER ---
Addendum entered by Gloria Castrejon 05/19/20 10:12: This patient is agreeable to [facility]. Karol from [facility] has stated that she is willing to accept this patient for today. COVID nasal swab has been ordered and instructions for SERGIO drain (only empty and compress middle after) has been relayed to Karol. Patient will receive IV antibiotics, wound care and PT/OT. Patient concurs with this plan. Once COVID19 results are in patient can transfer to [facility]. Addendum entered by Gloria Castrejon 05/18/20 16:31: Patient is agreeable for [facility] to review referral at this time but not completely committed to placement. Patient information has been faxed to Karol at [facility]. Addendum entered by Gloria Castrejon 05/18/20 16:05: I have faxed patient information to [facility] regarding patient supplies and IV Dapto. I have spoke with Melissa and original cost for patient was $200/week this is for medication and all supplies (patients insurance does not cover([facility])). Melissa then called back stating that [facility] would help patient and lower cost to roughly $100/week. I will speak with patient regarding cost for at home supplies vs placement vs returning as outpatient. Patient has requested more time to think about discharge plan and discuss with sister. The plan for this patient is to discharge in AM. Original Note: I have spoke with this patient and patients sister regarding discharge plans once medically stable for discharge. Patient stated that roughly two weeks ago she was in [facility] and was not happy with their services. Patient stated that [facility] did attempt to find local placement once stable for discharge from their Stroke Unit and was unsuccessful which led to patient being discharged home with home health services from [facility]. I have notified Eloy with [facility] regarding patients hospital admission. Patient stated that once she is ready for discharge from [facility] she intends to discharge back home where she resides with her 10 year old grandchild. Patient stated that she has a son that is very involved and her sister. I have informed patient that she will need: PICC line, daily (2) IV antibiotics, PT/OT, and dress changes 3x week. Patient stated that she understood the amount of care she would need and does want to return home with home health services rather than placement. Placement was thoroughly discussed and questions were answered. Patient is adamant to return home with [facility] and assistance from family at time of discharge. Patient is also a home O2 dependent and stated she has all necessary DME at home. I will continue to follow up with this patient until medically stable for discharge.
--- NOTE | 2020-05-18 12:12 | XR_ITS ---
PROCEDURE: XR CHEST PORTABLE PICC PLAC CLINICAL HISTORY: PICC LINE PLACEMENT COMPARISON: CHESTWO CT chest wo con from 10/28/2018 XR CHEST 2V from 01/03/2020 XR CHEST PORTABLE from 05/16/2020 XR CHEST PORTABLE PICC PLAC from 05/18/2020 FINDINGS: 12:14 p.m.. Left upper extremity PICC line is present. The tip is in good position in the region of the SVC. There is mild left basilar atelectasis. IMPRESSION: Left upper extremity PICC line in good position Dictated by: Jamison Jj MD 05/18/2020 12:16 Electronically signed by Jamison Jj MD in [place] 05/18/2020 12:16
[2020-05-18 14:16] LABS: CATHL Activated Clotting Time 319 SEC (74-125)
[2020-05-18 17:28] LABS: POC Glucose,Bedside 335 (70-110)
[2020-05-18 17:28] LABS: POC Glucose,Bedside 307 (70-110)
--- NOTE | 2020-05-18 18:17 | PC.NURSE ---
PATIENT A&O X4, LUNGS DIMINSHED, BUE PULSES EQUAL. PICC INSERT TODAY, PATIENT TOLERATED WELL. PATIENT ATE A MEAL AFTER STAKER SURVEYING, ATE DINNER 2HRS LATER AND IS NOW EATING A BIG MAC, [employer] FRIES AND A POP FROM [email or web address]. THIS RN EDUCATED PATIENT ABOUT THE IMPORTANCE OF PROPER DIET FOR WOUND HEALING AND DM. PATIENT AND SISTER VERBALIZED AN UNDERSTANDING BUT STATED, SHE JUST WANTED SOMETHING GOOD TO EAT TODAY. NO OTHER NEEDS AT THIS TIME.
--- NOTE | 2020-05-18 19:54 | PC.NURSE ---
Pt's room air sat at rest = 83%.
[2020-05-18 21:35] LABS: POC Glucose,Bedside 412 (70-110)
--- NOTE | 2020-05-18 21:45 | PC.NURSE ---
THIS RN PROVIDED PT AND FAMILY MEMBER AT BEDSIDE DIETARY EDUCATION FOR DIABETES AND PROPER WOUND HEALING. PT VERBALIZED UNDERSTAND, SISTER AT BEDSIDE VERBALIZED UNDERSTAND OF THE FOLLOWING: DECREASE INTAKE OF SUGARS, STARCHES AND CARBS IN DAILY DIET TO BETTER MAINTAIN GLU WNL.
[2020-05-19] VITALS: BP 102/48; PULSE 71; RESP 18; TEMP 36.8; O2SAT 95
[2020-05-19 04:00] VITALS: BP 110/56; PULSE 70; RESP 18; TEMP 37; O2SAT 95
[2020-05-19 05:00] VITALS: BMI 40.0
[2020-05-19 05:08] VITALS: PULSE 66; PULSE 68; O2SAT 95
[2020-05-19 05:47] LABS: POC Glucose,Bedside 243 (70-110)
--- NOTE | 2020-05-19 06:20 | PC.NURSE ---
A&O X4. PT RESTED WELL WITH EYES CLOSED THIS SHIFT. PAIN ADEQUATELY CONTROLLED WITH NORCO PER MAR, ADMINISTERED 2 DOES THIS SHIFT. UPON REASSESSMENT BOTH TIMES, PT NOTED RESTING WITH EYES CLOSED. NO C/O N/V. NO BM THIS SHIFT. NO ABD DISTENTION NOTED WITH PALPATION. ADEQUATE URINE OUTPUT NOTED PER FC. URINE NOTED CLEAR AND DARK YELLOW IN COLOR. DSG TO BLE NOTED C/D/I. SERGIO DRAIN NOTED WITH MINIMAL OUTPUT, 5 ML. ELEVATED BLE ON PILLOWS T/O SHIFT. VSS. REMAINS SAFE. Q2H TURN WITH AUTOMATIC BED SETTINGS MONITORED BY THIS RN. CALL LIGHT WITHIN REACH. FAMILY REMAINS AT BEDSIDE. WILL CONTINUE TO MONITOR.
--- NOTE | 2020-05-19 07:17 | HMH.PNCARD ---
Subjective Date: 05/19/20 Time: 07:17 Principal diagnosis: PAD, non healing ulcer to bilateral LEs. Interval history: 54-year-old white female in bed. Denies any chest pain but states she did is having some difficulty breathing and is waiting breathing treatment this morning. She does take 3 different inhalers at home but has been only getting nebulizer treatments here. She does complain of some pain and tightness feeling in the left foot. Exam Vital signs and Labs for Last 24 Hours: Temp Pulse Resp BP Pulse Ox 98.6 F 68 18 110/56 L 95 05/19/20 04:00 05/19/20 05:08 05/19/20 04:00 05/19/20 04:00 05/19/20 05:08 Laboratory Results - last 24 hr 05/17/20 21:12: POC Glucose 372 H* 05/17/20 21:13: POC Glucose 389 H* 05/18/20 06:34: Total Counted 100, Neutrophils % (Manual) 88 H, Lymphocytes % (Manual) 8 L, Monocytes % (Manual) 4, Platelet Estimate Normal, RBC Morphology Normal 05/18/20 06:34: Conjugated Bilirubin 0.0, C-Reactive Protein 47.0 H D, Triglycerides 120, Cholesterol 132 L, LDL Cholesterol Direct 70.57 L, VLDL Cholesterol 24, HDL Cholesterol 43, Cholesterol/HDL Ratio 3.1 05/18/20 06:34: ESR 70 H 05/18/20 06:34: Calcium 8.1 L D 05/18/20 11:42: POC Glucose 335 H* 05/18/20 13:38: Activated Clotting Time 319 H* 05/18/20 17:07: POC Glucose 307 H* 05/18/20 21:27: POC Glucose 412 H* 05/19/20 05:20: POC Glucose 243 H I & O for Last 24 hours: Intake & Output 05/16/20 05/17/20 05/18/20 05/19/20 11:59 11:59 11:59 11:59 Intake Total 1840 / 1840 2477 / 2477 1743 / 1743 Output Total 410 / 410 3625 / 3625 Balance 1839 / 1839 2067 / 2067 -1882 / -1882 Weight 266 lb 12.149 oz 266 lb 15.677 oz 270 lb 4.587 oz Microbiology Reports for the Last 24 Hours: Microbiology 05/17/20 Unknown Foot,Left - Left Gram Stain - Final 05/17/20 Unknown Foot,Left - Left Wound Culture - Preliminary Strep agalactiae - (group b) 05/17/20 Unknown Foot,Left - Left Gram Stain - Final 05/17/20 Unknown Foot,Left - Left Surgical Biopsy Culture - Preliminary NO GROWTH AFTER 24 HOURS 05/17/20 Unknown Foot,Left - Left Gram Stain - Final 05/17/20 Unknown Foot,Left - Left Surgical Biopsy Culture - Preliminary NO GROWTH AFTER 24 HOURS - *Routine HEENT Exam Head: Present: normocephalic Eye: Present: EOMI, PERRL ENT: Present: mucous membranes moist - *Routine Respiratory Exam Present: wheezes. Absent: accessory muscle use, rales, rhonchi - *Routine Cardiovascular Exam Present: RRR. Absent: murmur, gallop, rubs - *Routine Extremities Exam Present: edema. Absent: calf tenderness Comments: Both feet wrapped in gauze. - *Routine Neurological Exam Present: alert, oriented X3, moving all extremities Progress Note: A&P (1) Cellulitis of right foot Status: Acute Current Visit: Yes (2) Gangrene of left foot Status: Acute Current Visit: Yes (3) Abnormal ankle brachial index (NICOLAS) Status: Acute Current Visit: No (4) Amputation of one or more toes Status: Acute Current Visit: No (5) Cellulitis of left foot Status: Acute Current Visit: No (6) Claudication Status: Acute Current Visit: No (7) Diabetic Foot Ulcer Status: Acute Current Visit: No (8) Peripheral arterial occlusive disease Status: Chronic Current Visit: No (9) Type 2 diabetes mellitus with diabetic neuropathy, with long-term current use of insulin Status: Chronic Current Visit: No (10) Recent cerebrovascular accident (CVA) Status: Acute Current Visit: No (11) Tobacco dependence syndrome Status: Acute Current Visit: No (12) Ulcer of left foot due to type 2 diabetes mellitus Status: Acute Current Visit: No (13) Hyperlipidemia Status: Chronic Current Visit: No (14) Hypertensive heart disease without heart failure Status: Chronic Current Visit: No (15)
[2020-05-19 08:00] VITALS: BP 118/57; PULSE 72; RESP 17; TEMP 37.1; O2SAT 97
--- NOTE | 2020-05-19 09:03 | ECG_ITS ---
APPROVED REPORT Exam: Resting ECG HR:73 bpm ECG Measurements Heart Rate 73 AXES OR 170 P 44 QRSd 100 QRS 5 QT 430 T 80 QTc 473 <Conclusion> Normal sinus rhythm Nonspecific T wave abnormality Prolonged QT Abnormal ECG Electronically signed by : Armen Martinez, 05/19/2020 16:31:18
[2020-05-19 09:26] LABS: Troponin I < 0.01 ng/ml (0.00-0.034)
--- NOTE | 2020-05-19 09:29 | HMH.ORTHPN ---
Subjective Date: 05/19/20 Time: : Principal diagnosis: PAD, non healing ulcer to bilateral LEs. Interval history: Patient was resting comfortably at the bedside. She reports some pain to the legs and feet, she does report that the bottom of her left foot feels tight. The site looks stable and no drainage noted there. It may have just been from the [place] wrap being a little snug. I will redress the area today and not apply the dressings as tight. Her dressings were clean dry and intact. She denies shortness of breath chest pain, nausea and vomiting, fever and chills. PN: Obj Ex Vital signs: Temp Pulse Resp BP Pulse Ox 98.7 F 72 17 118/57 L 97 05/19/20 08:00 05/19/20 08:00 05/19/20 08:00 05/19/20 08:00 05/19/20 08:00 - Constitutional no acute distress - Routine HEENT Exam Head: Present: normocephalic Eye: Present: PERRL ENT: Present: mucous membranes moist - Routine Neck Exam Present: full ROM, trachea midline. Absent: JVD - Routine Respiratory Exam Absent: accessory muscle use - Routine Cardiovascular Exam Present: RRR - Routine Abdominal Exam Present: soft, obese - Routine Extremities Exam Present: amputation. Absent: calf tenderness - Detailed Lower Extremity Exam Comments: Right foot edema and erythema has significantly improved. The right foot had an ulcer on the dorsal lateral midfoot. Post debridement with a 15 blade the wound base was 60% granular and 40% fibrotic tissue. The area was cleaned today again with betadine and debrided with a curette. Post debridement the wound measured 1.2 x 1.5 x 0.2 cm. The left foot has SERGIO drain intact at the dorsal medial incision and will stay in place until she follows up with us in the office on Friday. Skin abraham and sutures clean dry and intact to the amp site as well as the calcaneal biopsy site. There is a small calcaneal ulcer noted to the inferior left calcaneus, medial plantarly that measured 0.7 x 0.7 x 0.3 cm, wound base 100% granular. No new gangrene or necrotic tissue noted. - Routine Back/Spine/Pelvis Exam Back/Spine: Present: full ROM - Routine Skin Exam Present: erythema, dry, wounds, ecchymosis. Absent: gangrene - Routine Neurological Exam Present: oriented X3 - Routine Psychiatric Exam Present: normal affect - Urinary Catheter Management Nix Cath placed during this visit: no Progress Note: A&P (1) Cellulitis of right foot Status: Acute Current Visit: Yes (2) Gangrene of left foot Status: Acute Current Visit: Yes (3) Abnormal ankle brachial index (NICOLAS) Status: Acute Current Visit: No (4) Amputation of one or more toes Status: Acute Current Visit: No (5) Cellulitis of left foot Status: Acute Current Visit: No (6) Claudication Status: Acute Current Visit: No (7) Diabetic Foot Ulcer Status: Acute Current Visit: No (8) Peripheral arterial occlusive disease Status: Chronic Current Visit: No (9) Type 2 diabetes mellitus with diabetic neuropathy, with long-term current use of insulin Status: Chronic Current Visit: No (10) Recent cerebrovascular accident (CVA) Status: Acute Current Visit: No (11) Tobacco dependence syndrome Status: Acute Current Visit: No (12) Ulcer of left foot due to type 2 diabetes mellitus Status: Acute Current Visit: No (13) Hyperlipidemia Status: Chronic Current Visit: No (14) Hypertensive heart disease without heart failure Status: Chronic Current Visit: No (15) Coronary arteriosclerosis Status: Chronic Current Visit: No Assessment and Plan for All Diagnoses:: Assessment and Plan for All Diagnoses:: 05/18/20, s/p: right foot wound debridement, b/l foot irrigation and debridement/incision and drainage S/p: left foot Chopart's amputation, calcaneus percutaneous bone biopsy, foot callus debridement, derotational skin flap POD #2 Right foot wound looks stable. 15 blade was u
[2020-05-19 10:39] LABS: Adenovirus,PCR Not Detected (NotDetected); Bordetella Pertussis Not Detected (NotDetected); Chlamydophila Pneumoniae, PCR Not Detected (NotDetected); Coronavirus 19, PCR Not Detected (NotDetected); Coronavirus 229E Not Detected (NotDetected); Coronavirus NL63 Not Detected (NotDetected); Coronavirus OC43 Not Detected (NotDetected); Coronovirus HKU1,PCR Not Detected (NotDetected); Human Metapneumovirus Not Detected (NotDetected); Influenza A, PCR Not Detected (NotDetected); Influenza AH1, 2009 Not Detected (NotDetected); Influenza AH1, PCR Not Detected (NotDetected); Influenza AH3,PCR Not Detected (NotDetected); Influenza B, PCR Not Detected (NotDetected); Mycoplasma Pneumoniae, PCR Not Detected (NotDected); Parainfluenza 1, PCR Not Detected (NotDetected); Parainfluenza 2, PCR Not Detected (NotDetected); Parainfluenza 3, PCR Not Detected (NotDetected); Parainfluenza 4, PCR Not Detected (NotDetected); Respiratory Syncytial Virus Not Detected (NotDetected); Rhinovirus/Enterovirus Not Detected (NotDetected)
[2020-05-19 10:59] LABS: POC Glucose,Bedside 249 (70-110)
[2020-05-19 11:43] VITALS: BP 120/65; PULSE 77; RESP 16; TEMP 37.2; O2SAT 92
--- NOTE | 2020-05-19 12:30 | HMH.DCSUM ---
General - General Admission date:: 05/16/20 Discharge date: 05/19/20 HPI HPI: Ms. Squires is a 54-year-old diabetic female who unfortunately had a recent stroke with right sided paralysis. She was at for the stroke and then sent to [facility] for rehab. At the time she also had a left calcaneal heel ulcer so she was nonweightbearing in a wheelchair and offloading the wound. The left heel wound has since healed but patient reports stiffness and weakness secondary to the lack of physical therapy. Patient presents to the Podiatry office today for a followup of left foot wounds. She reports daily dressing changes with Santyl and a dry dressing. She reports having yellow milky drainage. She also presents today with a new wound on her right Lateral foot, the area appears red and inflamed with ascending cellulitis noted. She denies having any drainage from that area. She states that she first noticed the wound on Friday05/12/20. She also reports having numbness, burning, and tingling sensations to her feet. Today in the office her glucose is 186 mg/dl. Overall patient appeared ill, lethargic with bilateral lower extremity cellulitis and gangrene. Patient has had vascular procedures to both lower extremities by the cardiology team. Below are findings from podiatry: 1 - Right foot edema and erythema noted with a new arterial ulcer to the dorsal foot. No purulence noted. There is ascending cellulitis noted. 2 - Left foot cool with arterial ulcers to the dorsal medial foot x2. Ulcers also noted to the lateral foot along the fifth metatarsal. Ulcer is gangrenous with malodor noted. Previous amputation of the left first second and third toes. Left foot edema and erythema with nonpalpable pulses and cold extremities. Seen in consultation today by cardiology team. This is the current plan from cardiovascular perspective 1. Bilateral lower extremity nonhealing ulcers, left greater than right. Plan to proceed with bilateral lower extremity runoff tomorrow with plans to intervene in the left lower extremity. If, by chance, the left lower extremity arterial system is patent and does not need intervention, then the plan is to proceed with intervention in the right SFA due to new right foot ulcer. 2. Known mild, [id number] coronary artery disease by cardiac catheterization 07/2017, clinically stable. Patient previously on carvedilol therapy but this appears to have been stopped during her admission for CVA in October 2019. She currently is on aspirin and Norvasc therapy. Preliminary echocardiogram today is a difficult study and appears to show preserved ejection fraction with no significant valvular heart disease. 3. Diabetes mellitus, Per Dr. Patterson 4. History of hypertension, controlled on lisinopril and norvasc but not to goal. 5. Hyperlipidemia, on statin therapy 6. PAD with multiple interventions in the left and right lower extremities, on aspirin and Xarelto therapy. Hold Xarelto tonight in preparation for angiogram tomorrow. She is admitted to our service today. Hospital Course Hospital Course: Patient was admitted to our service for cellulitis and gangrenous infection left foot. These occur in a setting of multiple co-morbid states including vascular disease, coronary disease, hypertension, diabetes, and history of stroke with residual and significant right sided weakness. She was followed actively by cardiology and covered with iv antibiotics. Taken to the OR by Dr Rutledge Date of procedure: 05/17/20 Pre-op Diagnosis:: 1. Right foot diabetic ulcer 2. Left foot diabetic ulcer 3. Left gangrene, osteomyelitis 4. Left arterial ulcer 5. B/L foot cellulitis 6. PAD Post-op Diagnosis:: Same Procedure performed:: 1. Right foot wound debridement 2. Left foot Chopart's amputation 3. B/L foot irrigation and debridement/incision and drainage 4. Left calcaneus percutaneous bone biopsy 5. Left foot callus debridement 6. Left
== END 2020-05-19 14:55 | DRG 271 ==
PROVIDERS: Internal Medicine; Nurse Practitioner Family; Physician Assistant; Podiatrist; Admitting Provider Emergency Medicine; PCP Emergency Medicine; Visit Provider Emergency Medicine
PROC: 047L3D1 Dilation of Left Femoral Artery with Intraluminal Device, using Drug-Coated Balloon, Percutaneous Approach (ICD-10-PCS; principal; 2020-05-17 10:00)
PROC: 0Y6N0Z0 Detachment at Left Foot, Complete, Open Approach (ICD-10-PCS; CPT 28800; principal; 2020-05-17 12:15)
PROC: 047M3Z1 Dilation of Right Popliteal Artery using Drug-Coated Balloon, Percutaneous Approach (ICD-10-PCS; principal; 2020-05-18 12:45)
DX: E11.52 Type 2 diabetes mellitus with diabetic peripheral angiopathy with gangrene (principal); L97.411 Non-pressure chronic ulcer of right heel and midfoot limited to breakdown of skin; L98.496 Non-pressure chronic ulcer of skin of other sites with bone involvement without evidence of necrosis; I70.268 Atherosclerosis of native arteries of extremities with gangrene, other extremity; M86.172 Other acute osteomyelitis, left ankle and foot; L03.116 Cellulitis of left lower limb; L03.115 Cellulitis of right lower limb; E11.621 Type 2 diabetes mellitus with foot ulcer; I77.1 Stricture of artery; Z72.0 Tobacco use; Z79.4 Long term (current) use of insulin; I70.234 Atherosclerosis of native arteries of right leg with ulceration of heel and midfoot; E11.40 Type 2 diabetes mellitus with diabetic neuropathy, unspecified; Z79.01 Long term (current) use of anticoagulants; Z95.820 Peripheral vascular angioplasty status with implants and grafts; Z95.5 Presence of coronary angioplasty implant and graft; J44.9 Chronic obstructive pulmonary disease, unspecified; I25.10 Atherosclerotic heart disease of native coronary artery without angina pectoris; L97.524 Non-pressure chronic ulcer of other part of left foot with necrosis of bone
CPT/HCPCS: 28800; 11042; 36415; 36569; 37224; 37227; 71045; 73630; 75716; 80053; 80061; 80202; 81001; 82962; 84484; 85007; 85025; 85347; 85651; 86140; 86328; 87070; 87075; 87077; 87186; 87205; 87581; 87633; 87798; 88305; 88307; 88311; 93005; 93306; 93923; 94640; 94761; 99152; 99153; C1725; C1751; C1760; C1766; C1769; C1776; C1876; C1894; J1335; J1644; J1956; J2405; J2720; J3370; Q9966; Q9967

== ENCOUNTER → 2020-05-25 20:27 | Outpatient (CLI) | payer MEDICARE, MEDICAID, SELFPAY ==
[2020-05-25 20:57] LABS: Vancomycin,Trough 14.2 ug/mL (5.0-10.0)
== END ==
PROVIDERS: PCP Emergency Medicine; Visit Provider Emergency Medicine
DX: Z51.81 Encounter for therapeutic drug level monitoring (principal)
CPT/HCPCS: 80202

== ENCOUNTER → 2020-05-30 17:19 | Outpatient (CLI) | payer MEDICARE, MEDICAID, SELFPAY | PROVIDERS: Visit Provider Podiatrist | DX: Z98.890 Other specified postprocedural states (principal) | CPT/HCPCS: 87070; 87205 ==

== ENCOUNTER → 2020-06-01 21:49 | Outpatient (CLI) | payer MEDICARE, MEDICAID, SELFPAY ==
[2020-06-01 22:27] LABS: Vancomycin,Trough 17.5 ug/mL (5.0-10.0)
== END ==
LOC: LAB 21:52 → LAB.DROPOF 22:11
PROVIDERS: Visit Provider Emergency Medicine
DX: Z51.81 Encounter for therapeutic drug level monitoring (principal)
CPT/HCPCS: 80202

== ENCOUNTER → 2020-06-06 18:27 | Outpatient (CLI) | payer MEDICARE, MEDICAID, SELFPAY | LOC: ER 18:30 → LAB 06-08 12:44 | PROVIDERS: PCP Emergency Medicine; Visit Provider Podiatrist | DX: Z98.890 Other specified postprocedural states (principal); M86.172 Other acute osteomyelitis, left ankle and foot | CPT/HCPCS: 87070; 87205 ==

== ENCOUNTER → 2020-06-22 10:15 | Outpatient (CLI) | payer MEDICARE, MEDICAID, SELFPAY ==
[2020-06-22 10:47] LABS: Vancomycin,Trough 22.9 ug/mL (5.0-10.0)
== END ==
PROVIDERS: Visit Provider Emergency Medicine
DX: Z51.81 Encounter for therapeutic drug level monitoring (principal)
CPT/HCPCS: 80202

== ENCOUNTER → 2020-06-24 09:22 | Outpatient (CLI) | payer MEDICARE, MEDICAID, SELFPAY ==
[2020-06-24 10:26] LABS: Vancomycin,Trough 7.7 ug/mL (5.0-10.0)
== END ==
PROVIDERS: PCP Emergency Medicine; Visit Provider Emergency Medicine
DX: Z51.81 Encounter for therapeutic drug level monitoring (principal)
CPT/HCPCS: 80202

== ENCOUNTER → 2020-06-27 12:03 | Outpatient (CLI) | payer MEDICARE, MEDICAID, SELFPAY ==
--- NOTE | 2020-06-27 | XR_ITS ---
PROCEDURE: XR CHEST 2V CLINICAL HISTORY: HX OF HIGH BLOOD PRESSURE COMPARISON: CT CHESTWO CT chest wo con from 10/28/2018 CR XR CHEST PORTABLE from 05/16/2020 CR XR CHEST PORTABLE PICC PLAC from 05/18/2020 CR XR CHEST PORTABLE PICC PLAC from 05/18/2020 FINDINGS: The cardiomediastinal silhouette and pulmonary vascularity are within normal limits. The lungs are clear without infiltrates, suspicious nodules, or pleural effusions. No acute bony abnormalities. IMPRESSION: No acute findings. Dictated by: Dr. Kyle Krishnamurthy MD 06/27/2020 13:10 Dr. Kyle Krishnamurthy MD in [place] 06/27/2020 13:10
--- NOTE | 2020-06-27 | XR_ITS ---
PROCEDURE: XR FOOT RT MIN 3V CLINICAL INDICATION: B/L DM ULCER COMPARISON: CR XR FOOT WT BEARING LT 3V from 05/11/2020 CR XR FOOT RT MIN 3V from 05/16/2020 CR XR FOOT LT MIN 3V from 05/16/2020 CR XR FOOT LT MIN 3V from 05/17/2020 FINDINGS: No fracture or dislocation. No lytic or blastic change. There is normal mineralization. There are some hypertrophic changes at the dorsal aspect of the talonavicular and navicular cuneiform joint Other findings:None. IMPRESSION: Mild degenerative changes, no acute finding Dictated by: Jamison Jj MD 06/27/2020 14:29 Jamison Jj MD in [place] 06/27/2020 14:29
--- NOTE | 2020-06-27 | XR_ITS ---
PROCEDURE: XR FOOT LT MIN 3V CLINICAL INDICATION: B/L DM ULCER, L S/P PART AMP COMPARISON: CR XR FOOT WT BEARING LT 3V from 05/11/2020 CR XR FOOT RT MIN 3V from 05/16/2020 CR XR FOOT LT MIN 3V from 05/16/2020 CR XR FOOT LT MIN 3V from 05/17/2020 FINDINGS: S/p amputation at the talonavicular and calcaneocuboid junction. No underlying erosive change evident. There is some soft tissue calcification noted along the anterior aspect of the talus. Surgical drain and skin clips have been removed. IMPRESSION: Postsurgical changes from prior amputation as described above Dictated by: Jamison Jj MD 06/27/2020 14:22 Jamison Jj MD in [place] 06/27/2020 14:22
--- NOTE | 2020-06-27 12:48 | ECG_ITS ---
APPROVED REPORT Exam: Resting ECG HR:77 bpm ECG Measurements Heart Rate 77 AXES TN 142 P 21 QRSd 92 QRS 6 QT 406 T 67 QTc 459 <Conclusion> Normal sinus rhythm Normal ECG Electronically signed by : Armen Martinez, 06/27/2020 13:44:26
== END ==
PROVIDERS: PCP Physician Assistant; Visit Provider Podiatrist
DX: Z01.818 Encounter for other preprocedural examination (principal); I10 Essential (primary) hypertension
CPT/HCPCS: 71046; 73630; 93005

== ENCOUNTER → 2020-07-04 08:35 | Outpatient (CLI) | payer MEDICARE, MEDICAID, SELFPAY ==
[2020-07-05 11:38] LABS: Coronavirus 19 IgG Antibody Negative (Negative); Coronavirus 19 IgM Antibody Negative (Negative)
== END ==
PROVIDERS: Visit Provider Podiatrist
DX: Z01.818 Encounter for other preprocedural examination (principal); L97.511 Non-pressure chronic ulcer of other part of right foot limited to breakdown of skin
CPT/HCPCS: 86328

== ENCOUNTER 2020-07-06 06:04 | Day surgery (SDC) | payer MEDICARE, MEDICAID, SELFPAY ==
[2020-07-04 12:22] VITALS: BMI 42.1
--- NOTE | 2020-07-04 12:27 | PC.NURSE ---
Medical and social history retrieved from medical record, unable to get answers to some questions.
[2020-07-06] VITALS (12 sets, daily range): BP systolic 128–153; BP diastolic 52–81; PULSE 67–82; RESP 16–18; TEMP 36.4–43; O2SAT 93–96
[2020-07-06 06:56] LABS: POC Glucose,Bedside 143 (70-110)
--- NOTE | 2020-07-06 07:21 | HMH.OPNOTE ---
Date of procedure: 07/06/20 Pre-op Diagnosis:: 1. Right foot diabetic ulcer 2. Left foot s/p Chopart amputation on 05/17/20 3. Left foot gangrene 4. B/L PAD 5. Retained left foot sutures Post-op Diagnosis:: Same Procedure performed:: 1. Right diabetic foot ulcer debridement 2. Left Chopart amputation wound dehiscence debridement 3. Left foot suture removal 4. Left ankle, foot bone biospy 5. Left foot delayed primary closure Surgeon:: Amy Rutledge DPM CLOTH DESIGNER:: Yosvany Rao Anesthesia: GETA Estimated blood loss (mL): 15 Clinical Note:: Ms. Pitt is a 54-year-old female who underwent a left Chopart amputation 05/17/2020 and has had difficulty healing the wound secondary to infection and gangrene. She also had debridement of diabetic ulcer on the right foot. Radiographs of the left and right feet 3 views taken 06/27/2020 were reviewed. Left foot x-rays show status post amputation at the talonavicular and calcaneocuboid junction. No underlying erosive change evident. There is some soft tissue calcification noted along the anterior aspect of the talus. The previous surgical drain and skin clips have been removed. The right foot x-rays show no new fracture or dislocation. There is some hypertrophic changes of the dorsal aspect of the talonavicular and navicular cuneiform joints. No new evidence of bone erosion. We discussed conservative versus surgical treatment options. Conservative treatment options include local wound care, oral and IV antibiotics, fracture boot and off-loading. Discussed this is a final left foot attempt to salvage the tissue to prevent below-knee amputation. Patient also understands that they could have wound healing complications including delayed healing and infection. We discussed that if the wound does not heal, it is possible that they may need a more proximal amputation including below-knee or above-knee amputation. We discussed the risks and benefits in great detail. Other surgical risks include: prolonged pain and swelling, further infection requiring oral or IV antibiotics, delay in healing of soft tissue or bone, nerve or blood vessel damage, CRPS/RSD, DVT, anesthesia complications, and even . All questions answered. Patient verbalized understanding. Consent obtained. PCP: Dr. Patterson. Pre-op labs, 06/27/20: CXR FINDINGS: The cardiomediastinal silhouette and pulmonary vascularity are within normal limits. The lungs are clear without infiltrates, suspicious nodules, or pleural effusions. No acute bony abnormalities. IMPRESSION: No acute findings. EKG: Normal sinus rhythm, Normal ECG. Covid negative. Medical and cardiac clearance granted. Operative findings:: The right foot diabetic ulcers. The one on the dorsal lateral aspect of the foot has healed. The ulcer on the dorsal medial foot toward the ankle was sharply excisionally debrided through skin and subcutaneous tissue. Post debridement with sharp curette wound base is 100% granular and measured 0.6 x 0.4 x 0.1 cm no signs of acute infection to the right foot ulcer. Left Chopart's amputation had previously dehisced. There was gangrenous fibrotic changes. Some serosanguineous drainage noted from the lateral aspect of the wound. The lateral aspect of the wound did probe down to the level of the talus. Tissue discolored and necrotic at the lateral aspect of the incision. Post debridement the lateral half of the wound was closed with suture and the medial aspect of the wound base was a mixture of fibrotic and granular tissue with minimal bleeding noted. The medial wound measured, 4.5 x 3.2 x 0.6 cm. Operative note:: On this date and time patient was deemed an appropriate surgical candidate. With informed consent signed, the patient was taken to the operating theater. The patient was positioned supine. General anesthesia was induced. No tourniquet was used. Right foot wound ulcer debridement: The right lower extremity was prepped and draped in normal sterile fashion. Utilizing a sharp
--- NOTE | 2020-07-06 07:33 | P.PN_ITS ---
[facility] Anesthesia Checklist - Patient Identification Patient Identification: Arm Band - Structural Data Admitted From: Long-term Nursing [facility] Planned Operative Procedure/s: I&D bilateral feet Consent for Planned Operative Procedure(s) Verified: Yes Verified Documents: Surgical Consent, History and Physical - NPO Status Verified Time NPO: 00:00 - Additional verifications Anesthesia Reactions: No Hx Blood Transfusions: No Blood Transfusion Reaction: No - Airway Assessment C-Spine Mobility Assessed: Yes (mp3) TMJ Mobility Assessed: Yes Dentition: Edentulous - Neurological Assessment Level of Consciousness: Awake, Alert - Anesthesia Plan Anesthesia Risk discussed: Yes Anesthesia Plan: Verified ASA Class: III Anesthesia Type: General [facility] History I have reviewed the patient's past medical history: Yes Medical History: Reports:: Anxiety, Chronic Obstructive Pulmonary Disease (COPD), Coronary Artery Disease, Cerebrovascular Accident, Depression, Diabetes Mellitus Type 2, Hyperlipidemia, Hypertension, Peripheral Artery Disease, Peripheral Vascular Disease Denies:: Cancer, Diabetes Mellitus Type 1, Internal Pacemaker, MRSA, Seizures *Have you ever received a pneumonia vaccine?: Yes *Have you received a flu vaccine this season?: No Other Medical History: Reports: Hypothyroidism. Denies: Blood Transfusion Reaction Anesthesia experience/problems:: nac Laterality Cases: Bilateral: Other Other Surgeries: Yes: Cardiac Catheterization, Cardiac Surgery, Coronary Stent, Thyroidectomy, Tubal Ligation, Other. No: Pacemaker Amputation: Yes (Toe left big) Fractures: No - *Social History Smoking Status: Former smoker Tobacco Type: cigarettes # Packs/Day (cigarettes): 1 #Yrs smoked (if former smoker): 30 Alcohol Intake: never Substance Use Type: denies use *Occupational Status:: disabled Housing: house Household Members: family *Travel in the last 8 weeks: None - Psychiatric History Pschychiatric History:: Reports:: Anxiety, Depression Family Hx:: Cancer, Heart Attack
--- NOTE | 2020-07-06 08:39 | P.PN_ITS ---
[facility] [place] Anesthesia Record Part I Intake, IV Amount: 400 Estimated blood loss (mL): 5 Urine output (mL): 0 Blood Pressure: 150/77 SaO2: 93 Pulse Rate: 71 Respiratory Rate: 16 Temperature: 98.5 F Patient is:: Drowsy, Stable Stable to PACU at:: 08:35
[2020-07-06 08:54] LABS: POC Glucose,Bedside 154 (70-110)
--- NOTE | 2020-07-06 09:30 | XR_ITS ---
PROCEDURE: XR FOOT RT MIN 3V CLINICAL INDICATION: Post op Pain COMPARISON: CR XR FOOT LT MIN 3V from 05/16/2020 CR XR FOOT LT MIN 3V from 05/17/2020 CR XR FOOT RT MIN 3V from 06/27/2020 CR XR FOOT LT MIN 3V from 06/27/2020 FINDINGS: No obvious fracture or dislocation. There is decreased density with questionable cortical erosion along the dorsal aspect of the medial cuneiform. Bandage artifact is present at this area. Hypertrophic changes are present at the talonavicular joint. There is also some decreased density along the dorsal aspect of the navicular but is not significantly changed. Other findings:None. IMPRESSION: Suspect osteomyelitis along the dorsal aspect of the medial cuneiform with a erosive change of the cortical surface dorsally. There is also lucency at the dorsal aspect of the navicular. MRI may provide further evaluation. Dictated by: Jamison Jj MD 07/06/2020 11:35 Jamison Jj MD in [place] 07/06/2020 11:35
--- NOTE | 2020-07-06 09:30 | XR_ITS ---
PROCEDURE: XR FOOT LT MIN 3V CLINICAL INDICATION: Post op Follow-up amputation COMPARISON: CR XR FOOT LT MIN 3V from 05/16/2020 CR XR FOOT LT MIN 3V from 05/17/2020 CR XR FOOT RT MIN 3V from 06/27/2020 CR XR FOOT LT MIN 3V from 06/27/2020 FINDINGS: Status post amputation at the talo navicular and calcaneocuboid junction.. On the AP view there is decreased density along the inferior lateral aspect of the calcaneus. While this could be technical, 1 cannot exclude an erosive process. No soft tissue gas. IMPRESSION: Status post amputation at the talo navicular and calcaneocuboid joint. Decreased density is noted along the posterior and lateral surface of the calcaneus as seen on the AP view raising the suspicion of underlying erosive process such as osteomyelitis. Please correlate with clinical findings. Dictated by: Jamison Jj MD 07/06/2020 11:32 Jamison Jj MD in [place] 07/06/2020 11:32
--- NOTE | 2020-07-06 11:38 | P.PN_ITS ---
[facility] Anesthesia Record Part II Discharge Time: 09:05 Destination: Surgical Day Care (OP Surgery) PACU nurse assessment reviewed?: Yes Patient Condition:: Good Anesthesia Complications:: None Swallowing reflex intact?: Yes Cyanosis?: No Blood Pressure: 140/73 Pulse Rate: 74 Temperature: 98.5 F Mental Status: Alert & Oriented Pain level:: 0 Nausea and/or vomitting:: None Intake, IV Amount: 0
== END 2020-07-06 10:00 | disposition home or self-care (01) ==
LOC: OR 06:08
PROVIDERS: PCP Physician Assistant; Visit Provider Podiatrist
PROC: (CPT 11042; principal; 2020-07-06 07:30)
DX: E11.621 Type 2 diabetes mellitus with foot ulcer (principal); I70.235 Atherosclerosis of native arteries of right leg with ulceration of other part of foot; I70.245 Atherosclerosis of native arteries of left leg with ulceration of other part of foot; L97.511 Non-pressure chronic ulcer of other part of right foot limited to breakdown of skin; E11.40 Type 2 diabetes mellitus with diabetic neuropathy, unspecified; T87.81 Dehiscence of amputation stump; I77.9 Disorder of arteries and arterioles, unspecified; L03.116 Cellulitis of left lower limb; I10 Essential (primary) hypertension; E03.9 Hypothyroidism, unspecified; Z95.820 Peripheral vascular angioplasty status with implants and grafts; Z79.4 Long term (current) use of insulin; Z79.01 Long term (current) use of anticoagulants; Z79.51 Long term (current) use of inhaled steroids; Z79.82 Long term (current) use of aspirin; Z79.899 Other long term (current) drug therapy; M86.672 Other chronic osteomyelitis, left ankle and foot; I69.351 Hemiplegia and hemiparesis following cerebral infarction affecting right dominant side
CPT/HCPCS: 11042; 11044; 73630; 82962; 87070; 87075; 87077; 87186; 87205; 88305; 88311; 96374; J1956; J2405; J3370

== ENCOUNTER → 2020-07-07 15:20 | Outpatient (CLI) | payer MEDICARE, MEDICAID, SELFPAY ==
[2020-07-07 16:01] VITALS: BMI 39.9
--- NOTE | 2020-07-07 16:03 | XR_ITS ---
PROCEDURE: XR CHEST PORTABLE PICC PLAC CLINICAL HISTORY: PICC line placement COMPARISON: CT CHESTWO CT chest wo con from 10/28/2018 CR XR CHEST PORTABLE PICC PLAC from 05/18/2020 CR XR CHEST PORTABLE PICC PLAC from 05/18/2020 CR XR CHEST 2V from 06/27/2020 FINDINGS: 1621 hours. Left upper extremity PICC line has been inserted. The tip is in good position in the region of the SVC. Unremarkable cardiovascular structures with clear lungs. No acute bony anomalies. IMPRESSION: Left upper extremity PICC line tip in good position. Dictated by: Jamison Jj MD 07/07/2020 16:22 Jamison Jj MD in [place] 07/07/2020 16:22
== END ==
PROVIDERS: Visit Provider Podiatrist
DX: M86.9 Osteomyelitis, unspecified (principal)
CPT/HCPCS: 36569; 71045; C1751

== ENCOUNTER → 2020-07-26 23:12 | Outpatient (CLI) | payer MEDICARE, MEDICAID, SELFPAY | PROVIDERS: Visit Provider Emergency Medicine | DX: Z51.81 Encounter for therapeutic drug level monitoring (principal) | CPT/HCPCS: 80202 ==

== ENCOUNTER → 2020-08-11 12:50 | Outpatient (CLI) | payer MEDICARE, MEDICAID, SELFPAY ==
[2020-08-11 12:53] LABS: MANUAL DIFFERENTIAL MANUAL DIFFERENTIAL (MANUAL DIFF)
[2020-08-11 13:35] LABS: Basophils % 0.4 % (0.1-2.0); Eosinophils # 0.3 K/mm3 (0.0-0.4); Eosinophils % 4.2 % (0.1-12.0); Hematocrit 34.6 % (37.0-47.0); Hemoglobin 11.3 g/dL (12.2-16.2); Lymphocytes # 2.3 K/mm3 (0.7-4.5); Lymphocytes % 30.2 % (10-50); Mean Corpuscular HGB Conc 32.6 g/dL (31.8-35.4); Mean Corpuscular Hemoglobin 29.1 pg (27.0-31.2); Mean Corpuscular Volume 89.4 fl (81-99); Mean Platelet Volume 7.9 fl (7.4-10.4); Monocytes # 0.5 K/mm3 (0.1-1.0); Monocytes % 7.2 % (1.7-9.3); Neutrophils # 4.4 K/mm3 (1.8-7.8); Neutrophils % 58.1 % (37.0-80.0); Platelet Count 352 K/mm3 (142-424); Red Blood Count 3.87 M/mm3 (4.20-5.40); Red Cell Distribution Width 14.4 % (11.5-17.5); White Blood Count 7.5 K/mm3 (4.8-10.8)
[2020-08-11 14:13] LABS: Eosinophils % 4 % (0-3); Lymphocytes % 25 % (10-50); Monocytes % 7 % (2-9); Neutrophils % 61 % (42-76); Platelet Estimate Normal; RBC Morphology Normal; Total Cells Counted 100
[2020-08-11 14:28] LABS: Erythrocyte Sedimentation Rate 88 mm/hr (0-30)
[2020-08-11 17:59] LABS: Chloride 95 mmol/L (98-107)
[2020-08-11 18:00] LABS: Potassium 4.4 mmoL/L (3.5-5.1); Sodium 137 mmol/L (136-145)
[2020-08-11 18:02] LABS: Alanine Aminotransferase 11 U/L (12-78); Aspartate Amino Transferase 19 U/L (14-36); Blood Urea Nitrogen 19 mg/dl (7-17); Estimated Glomerular Filt Rate 104 ml/min (>60); GFR (African American) 126 ML/MIN (>60)
[2020-08-11 18:03] LABS: Albumin Level 3.7 g/dl (3.5-5.0); Albumin/Globulin Ratio 1.3 (1.1-1.8); Alkaline Phosphatase 100 U/L (38-126); Anion Gap 13.4 mEq/L (5-15); Bilirubin,Total 0.3 mg/dl (0.2-1.3); Calcium 9.4 mg/dl (8.4-10.2); Carbon Dioxide 33 mmol/L (22.0-30.0); Globulin 2.8 g/dL (1.3-3.2); Glucose 178 mg/dl (74-100); Total Protein,Serum 6.5 g/dl (6.3-8.2)
== END ==
PROVIDERS: Visit Provider Orthopaedic Surgery
DX: Z01.818 Encounter for other preprocedural examination (principal)
CPT/HCPCS: 36415; 80053; 85007; 85014; 85018; 85048; 85049; 85651; 86140

== ENCOUNTER 2020-08-17 08:02 | Inpatient (IN) | payer MEDICARE, MEDICAID, SELFPAY ==
[2020-08-17] VITALS (21 sets, daily range): BP systolic 99–152; BP diastolic 51–79; PULSE 66–95; RESP 14–22; TEMP 36.1–43; O2SAT 84–98; BMI 42.0
[2020-08-17 09:43] LABS: C-Reactive Protein 5.4 mg/L (0-4)
--- NOTE | 2020-08-17 10:00 | HMH.ORTHHP ---
*Admission Date: 08/17/20 *Reason for consult:: L lower leg gangrene, osteomyelitis *History of present illness: 54-year-old female presents for initial orthopedic evaluation of the left lower extremity, referred by Dr. Rutledge after extensive limb salvage efforts have failed. The patient has diabetes with peripheral neuropathy and a history of ulcers that have led to previous amputations. She underwent left second and third digit amputation, heel ulcer debridement, SEAN on 01/05/2020. This was followed by I&D, Chopart amputation, bone biopsy and the rotational skin flap L foot performed on 05/17/2020. Cultures at that time were positive for E. coli in the fifth metatarsal and calcaneus, group B strep in the heel wound. Pathology was negative for acute osteomyelitis in the calcaneus but positive in the fifth metatarsal. She had a wound dehiscence of the Chopart amputation on the left foot, which led to I&D with wound closure on 07/06/2020. Left foot wound cultures at that time were positive for yeast as well as gram-positive cocci. Left talus bone culture and medial ankle bone cultures were positive for MRSA. Pathology of left talus and medial ankle bone positive for chronic osteomyelitis. Radiographic evidence of osteomyelitis is present as well on x-rays. She is currently receiving IV vancomycin via PICC line at the SNF where she is residing; additionally she is on oral Levaquin and doxycycline. PMH = h/o CVA w/R-sided weakness, HL, DM w/neuropathy, HTN, anxiety, depression, obesity (BMI 40), PVD, hypothyroidism, COPD, vitamin D deficiency, tobacco dependence, hypertensive heart disease, CAD PSH = L foot amputations (2; toes --> Chopart); LLE arterial stenting Allg = protamine Meds = tylenol, albuterol, amlodipine, ASA 81, atorvastatin, tessalon perles, budesonide-formoterol, buspirone, vitamin D, duloxetine, gabapentin, [place] 7.5, insulin (glargine and Humulin 70/30), ipratropium-albuterol, levofloxacin, levothyroxine, lisinopril, Xarelto (2.5mg BID), sitagliptin, spiriva, tramadol, vitamin B SocHx = former smoker (1ppd; 30 pack-yrs); disabled LABS: WBC ESR CRP 05/18/20 14.5 70 47 mg/L 06/08/20 6.6 45 4.6 06/15/20 7.1 56 4.1 06/22/20 6.6 47 6.1 07/04/20 7.7 50 3.9 HgbA1C 7.1 08/04/20 7.3 27 5.7 08/11/20 7.5 88 12 the patient underwent L BKA this morning without complication EBL = 250 cc UOP = 500cc IVF = 900cc NS [facility] History I have reviewed the patient's past medical history: Yes Medical History: Reports:: Anxiety, Chronic Obstructive Pulmonary Disease (COPD), Coronary Artery Disease, Cerebrovascular Accident, Depression, Diabetes Mellitus Type 2, Hyperlipidemia, Hypertension, Peripheral Artery Disease, Peripheral Vascular Disease Denies:: Cancer, Diabetes Mellitus Type 1, Internal Pacemaker, MRSA, Seizures *Have you ever received a pneumonia vaccine?: Yes *Have you received a flu vaccine this season?: Yes Other Medical History: Reports: Hypothyroidism, Thyroid Disease. Denies: Blood Transfusion Reaction Laterality Cases: Bilateral: Other Other Surgeries: Yes: Cardiac Catheterization, Cardiac Surgery, Coronary Stent, Thyroidectomy, Tubal Ligation, Other. No: Pacemaker Amputation: Yes (Toe left big) Fractures: No - *Social History Last grade of school completed: GED Smoking Status: Former smoker Tobacco Type: cigarettes # Packs/Day (cigarettes): 1 #Yrs smoked (if former smoker): 30 Smoking End Date: 06/2020 Alcohol Intake: never Substance Use Type: denies use *Occupational Status:: disabled Housing: correction Household Members: caregiver *Travel in the last 8 weeks: None - Psychiatric History Pschychiatric History:: Reports:: Anxiety, Depression Family Hx:: Cancer, Heart Attack Review of Systems - Review of Systems Review of systems:: pertinent systems reviewed and negative unless documented below Meds Home Medications Medication Instructions Recorded Confirmed Type acetaminophen 500 mg table
--- NOTE | 2020-08-17 10:04 | HMH.OPNOTE ---
Date of procedure: 08/17/20 Pre-op Diagnosis:: L lower leg gangrene, osteomyelitis Post-op Diagnosis:: L lower leg gangrene, osteomyelitis Procedure performed:: L below knee amputation (BKA) Surgeon:: Ilana Gutiérrez MD Box Maker(s):: MARY LOU Ni RAKE OPERATOR:: Steve Mai Anesthesia: GETA Estimated blood loss (mL): 250 Clinical Note:: 54-year-old female with gangrene and osteomyelitis of the left lower extremity, referred by Dr. Rutledge after extensive limb salvage efforts have failed. The patient has diabetes with peripheral neuropathy and a history of ulcers that have led to previous amputations. She underwent left second and third digit amputation, heel ulcer debridement, SEAN on 01/05/2020. This was followed by I&D, Chopart amputation, bone biopsy and the rotational skin flap L foot performed on 05/17/2020. Cultures at that time were positive for E. coli in the fifth metatarsal and calcaneus, group B strep in the heel wound. Pathology was negative for acute osteomyelitis in the calcaneus but positive in the fifth metatarsal. She had a wound dehiscence of the Chopart amputation on the left foot, which led to I&D with wound closure on 07/06/2020. Left foot wound cultures at that time were positive for yeast as well as gram-positive cocci. Left talus bone culture and medial ankle bone cultures were positive for MRSA. Pathology of left talus and medial ankle bone positive for chronic osteomyelitis. Radiographic evidence of osteomyelitis is present as well on x-rays. She is currently receiving IV vancomycin via PICC line at the SNF where she is residing; additionally she is on oral Levaquin and doxycycline. I discussed treatment options with the patient including continued IV antibiotic therapy and wound care, versus below-knee amputation. I do not believe her foot will heal, given the previous amputation, wound dehiscence, and current ongoing gangrene/wound necrosis seen. Additionally, there is underlying osteomyelitis. If aggressive debridement were performed of the infected bone, I still do not believe the wound would be closable or go on to any significant healing and/or function. I believe her best option for eradication of the infection and retaining some function of this limb is for below-knee amputation. She has recently had several surgical procedures with Dr. Rutledge and the patient says she is tolerated anesthesia well. I do not see the need for additional medical clearance prior to these procedures. She does have several significant underlying medical comorbidities, which will be discussed with anesthesia. Additionally, I have discussed her Xarelto management with Dr. Contreras, who recommend she stop it at least 72 hours prior to surgery. I will not stop the aspirin. I discussed the risks of below-knee amputation with the patient, including bleeding, continued or worsening infection, neurovascular damage, risk of wound or stump necrosis necessitating later debridement, wound vac application, wound care clinic treatment, or revision amputation to a higher level; I also discussed the risk of phantom limb pain, later stump breakdown despite initial wound healing, and risks of anesthesia including heart attack, stroke or even . The patient vocalized understanding of the above and provided informed consent for the procedure. Operative findings:: no clinical sign of infection at amputation site: no purulence, no cloudy fluid, though significant edema present of LLE Operative note:: The patient was identified in preoperative holding and L leg signed by myself. Consent was reviewed with the patient and all questions answered. She was then taken to the OR, where IV antibiotics were re-dosed (vancomycin 2.5 grams per pharmacy recs). The patient was transferred to the OR table and general endotracheal anesthesia induced. Once the patient was anesthetized, bandages were removed from the LLE and the leg prepped and draped in the usual sterile fashion
--- NOTE | 2020-08-17 12:38 | HMH.ANESCL ---
[facility] Anesthesia Checklist - Patient Identification Patient Identification: Arm Band, Verbal (Name & ) - Structural Data Admitted From: Long-term Nursing Facility Planned Operative Procedure/s: Left BKA Consent for Planned Operative Procedure(s) Verified: Yes Verified Documents: Surgical Consent, History and Physical, Cardiac Clearance - NPO Status Verified Time NPO: 00:00 - Chart Verification Results Verified: CBC, BMP, ECG, Chest Xray - Additional verifications Anesthesia Reactions: No Hx Blood Transfusions: No Blood Transfusion Reaction: No - Airway Assessment C-Spine Mobility Assessed: Yes TMJ Mobility Assessed: Yes Dentition: Edentulous - Neurological Assessment Level of Consciousness: Awake, Alert, Appropriate, Follows Commands Hx Seizures: No Numbness or tingling in extremities: Yes - Anesthesia Plan Anesthesia Risk discussed: Yes Anesthesia Plan: Verified ASA Class: IV Anesthesia Type: General [facility] History I have reviewed the patient's past medical history: Yes Medical History: Reports:: Anxiety, Chronic Obstructive Pulmonary Disease (COPD), Coronary Artery Disease, Cerebrovascular Accident, Depression, Diabetes Mellitus Type 2, Hyperlipidemia, Hypertension, Peripheral Artery Disease, Peripheral Vascular Disease Denies:: Cancer, Diabetes Mellitus Type 1, Internal Pacemaker, MRSA, Seizures *Have you ever received a pneumonia vaccine?: Yes *Have you received a flu vaccine this season?: Yes Other Medical History: Reports: Hypothyroidism, Thyroid Disease. Denies: Blood Transfusion Reaction Comment:: morbid obesity Anesthesia experience/problems:: No prior complications Laterality Cases: Bilateral: Other Other Surgeries: Yes: Cardiac Catheterization, Cardiac Surgery, Coronary Stent, Thyroidectomy, Tubal Ligation, Other. No: Pacemaker Amputation: Yes (Toe left big) Fractures: No - *Social History Last grade of school completed: GED Smoking Status: Former smoker Tobacco Type: cigarettes # Packs/Day (cigarettes): 1 #Yrs smoked (if former smoker): 30 Smoking End Date: 06/2020 Alcohol Intake: never Substance Use Type: denies use *Occupational Status:: disabled Housing: halfway Household Members: caregiver *Travel in the last 8 weeks: None - Psychiatric History Pschychiatric History:: Reports:: Anxiety, Depression Family Hx:: Cancer, Heart Attack
--- NOTE | 2020-08-17 12:41 | HMH.ANESI ---
[facility] Anesthesia Record Part I Intake, IV Amount: 900 Estimated blood loss (mL): 250 Urine output (mL): 500 Blood Products used (#): none Blood Pressure: 134/67 SaO2: 98 Pulse Rate: 73 Respiratory Rate: 17 Temperature: 97.0 F Patient is:: Awake, Drowsy, Nasal O2, Stable Stable to PACU at:: 12:33
[2020-08-17 12:51] LABS: POC Glucose,Bedside 142 (70-110)
--- NOTE | 2020-08-17 12:55 | XR_ITS ---
PROCEDURE: XR TIBIA FIBULA LT 2V CLINICAL INDICATION: s/p L BKA Follow-up amputation COMPARISON: No exams were available for comparison FINDINGS: Status post below the knee amputation. Postsurgical drain and clips are present. A splint is in place. A vascular stent is present in the knee area. The joint spaces are well-preserved. No significant degenerative/arthritic changes. No erosive changes evident. Other findings:None. IMPRESSION: Status post below the knee amputation Dictated by: Jamison Jj MD 08/17/2020 16:03 Jamison Jj MD in OV 08/17/2020 16:03
--- NOTE | 2020-08-17 13:19 | SW/DCPLANNER ---
Addendum entered by Gloria Castrejon 08/18/20 10:32: Tootie with [facility] has also stated that if patient is ready over the weekend that they can accept this patient back over the weekend. I have informed Dr Gutiérrez. Addendum entered by Gloria Castrejon 08/18/20 10:30: I have called and left Truly a message regarding this patients decision to return back at time of discharge. I will continue to update facility regarding this patient. Discharge date is unknown at this time. Original Note: This patient currently resides at [facility] level of care. I have spoke with Tootie today and she has stated that facility is assisting this patient in completing Medicaid application. I will continue to follow up with patient and [facility].
--- NOTE | 2020-08-17 13:28 | PC.NURSE ---
Pt arrived to the floor at this time.
[2020-08-17 14:01] LABS: Microscopic,Cath URINE MICROSCOPIC (MICROSCOPIC)
[2020-08-17 14:04] LABS: Appearance,Urine/Cath CLEAR (Clear); Bilirubin,Cath Negative (Negative); Blood, Urine/Cath Negative (Negative); Color,Urine/Cath YELLOW (Yellow); Glucose,Urine/Cath (UA) Negative (Negative); Ketones,Urine/Cath Negative (Negative); Leukocyte Esterase,Cath Negative (Negative); Nitrate,Cath Negative (Negative); PH,Urine/Cath 5.5 (5.0-8.5); Protein,Urine/Cath Negative (Negative); Specific Gravity, Urine/Cath <= 1.005 (1.005-1.030); Urobilinogen,Cath 0.2 EU/dl (0.2)
[2020-08-17 14:18] LABS: Yeast,Urine/Cath 1+
--- NOTE | 2020-08-17 14:24 | HMH.PHACONS ---
- Pharmacy Consult Date: 08/17/20 Time: 14:25 Referring provider: DR. MARES Reason for Consult:: VANCOMYCIN DOSING Allergies and ADEs:: Allergies Allergy/AdvReac Type Severity Reaction Status Date / Time protamine Allergy Verified 08/11/20 11:21 Home Medications:: Home Medications Medication Instructions Recorded Confirmed Type acetaminophen 500 mg tablet 1,000 mg PO Q6H PRN 12/22/17 08/17/20 History vitamin B complex 1 tab PO DAILY 12/22/17 08/17/20 History tiotropium bromide 2.5 2 puff INHALATION DAILY 02/02/19 08/17/20 History mcg/actuation mist for inhalation atorvastatin 40 mg tablet 80 mg PO HS tab 12/27/19 08/17/20 History Albuterol Sulfate [Proventil Hfa] 2 puffs INHALATION Q4H PRN 01/04/20 08/17/20 History Aspirin [Low Dose Aspirin EC] 81 mg PO DAILY 01/04/20 08/17/20 History Budesonide/Formoterol Fumarate 2 puff INHALATION Q12H 01/04/20 08/17/20 History [Symbicort 160-4.5 Mcg Inhaler] Buspirone HCl [Buspar 10mg 10 mg PO TID 01/04/20 08/17/20 History tablet] Cholecalciferol (Vitamin D3) 1,000 unit PO DAILY 01/04/20 08/17/20 History [Vitamin D3 1,000 Unit Cap] Levothyroxine Sodium 150 mcg PO DAILY 01/04/20 08/17/20 History [Levothyroxine 150mcg (0.15mg) Tab] tramadol 50 mg tablet 50 mg PO Q8H PRN #90 tab 03/29/20 08/17/20 Rx Amlodipine Besylate [Amlodipine 10 mg PO DAILY 05/16/20 08/17/20 History 10mg Tab] Duloxetine HCl [Cymbalta] 60 mg PO DAILY 05/16/20 08/17/20 History Insulin Glargine,Hum.rec.anlog 20 units SQ DAILY 05/16/20 08/17/20 History [Lantus Solostar] Insulin NPH Hum/Reg Insulin Hm 10 units SQ BID 05/16/20 08/17/20 History [Novolin 70-30 Flexpen] Ipratropium/Albuterol Sulfate 3 ml IH Q6H PRN 05/16/20 08/17/20 History [Duoneb 3mL neb] Rivaroxaban [Xarelto 2.5mg Tab*] 2.5 mg PO BID 05/16/20 08/17/20 History Sitagliptin Phosphate [Januvia 100 mg PO DAILY 05/16/20 08/17/20 History 100mg tablet] Urea [Uramaxin] 1 applic TOPICAL BID 05/16/20 08/17/20 History lisinopriL [Lisinopril 10mg Tab] 10 mg PO DAILY 05/16/20 08/17/20 History Ergocalciferol (Vitamin D2) 50,000 unit PO WEEKLY 05/17/20 08/17/20 History [Drisdol] Albuterol Sulfate [Albuterol 2.5 mg IH Q4HP PRN vial.neb 05/19/20 08/17/20 Rx 0.083% 2.5mg/3mL neb] collagenase clostridium histo. 250 1 applic TOPICAL QDAY #30 g 06/06/20 08/17/20 Rx unit/gram topical ointment gabapentin 600 mg tablet 600 mg PO QID #120 tab 06/19/20 08/17/20 Rx Levofloxacin/D5w 750 mg/150 ml 750 mg IV DAILY 07/06/20 08/17/20 History [Levofloxacin 750mg/150mL Premix IVPB] Vancomycin HCl [Vancomycin 1000mg 2,000 mg IV Q12H 07/06/20 08/17/20 History Vial] hydrocodone 7.5 mg-acetaminophen 1 tab PO Q4-6H PRN 30 Days #120 tab 07/12/20 08/17/20 Rx 325 mg tablet benzonatate 100 mg capsule 100 mg PO BID PRN #10 cap 08/04/20 08/17/20 Rx Height: 1.75 m Weight: 129.274 kg Laboratory Results:: Laboratory Results - last 24 hr 08/17/20 09:10: C-Reactive Protein 5.4 H 08/17/20 09:10: Blood Type O Negative, Antibody Screen Negative 08/17/20 11:30: Urine Color Yellow, Urine Appearance Clear, Urine pH 5.5, Ur Specific [place] <= 1.005, Urine Protein Negative, Urine Glucose (UA) Negative, Urine Ketones Negative, Urine Blood Negative, Urine Nitrate Negative, Urine Bilirubin Negative, Urine Urobilinogen 0.2, Ur Leukocyte Esterase Negative, Urine WBC 5-10, Ur Squamous Epith Cells 5-10, Urine Yeast 1+ 08/17/20 12:45: POC Glucose 142 H Medical History: Reports:: Anxiety, Chronic Obstructive Pulmonary Disease (COPD), Coronary Artery Disease, Cerebrovascular Accident, Depression, Diabetes Mellitus Type 2, Hyperlipidemia, Hypertension, Peripheral Artery Disease, Peripheral Vascular Disease Denies:: Cancer, Diabetes Mellitus Type 1, Internal Pacemaker, MRSA, Seizures Assessment and Plan (1) Cellulitis of left foot Status: Acute Category: Medical Code(s): L03.116 - Cellulitis of left lower limb (2) Kika
--- NOTE | 2020-08-17 14:28 | HMH.PHAVTE ---
[facility] Pharmacy VTE Monitoring - Patient Demographics Admission date: 08/17/20 Report Date: 08/17/20 Time: 14:28 Allergies/Adverse Reactions: Patient Allergies protamine Allergy (Verified 08/11/20 11:21) Height: 1.75 m Weight: 129.274 kg Patient Problems: Current Active Problems Gangrene of left foot (Chronic) Neuropathy (Acute) Cellulitis of left foot (Acute) Morbid obesity with body mass index (BMI) of 40.0 to 44.9 in adult (Acute) Diabetic Foot Ulcer (Acute) Abnormal ankle brachial index (NICOLAS) (Chronic) Recent cerebrovascular accident (CVA) (Chronic) History of CVA (cerebrovascular accident) (Chronic) Edema of left lower extremity (Chronic) History of amputation of left great toe (Chronic) COPD (chronic obstructive pulmonary disease) (Chronic) Diabetic neuropathy, type II diabetes mellitus (Chronic) Tobacco dependence syndrome (Chronic) Diabetes mellitus (Chronic) - Prophylaxis VTE Prophylaxis Ordered?: Yes Types of VTE Prophylaxis: IPCS Thigh High, Pharmacological Pharmacologic Type: Other (XARELTO)
--- NOTE | 2020-08-17 15:55 | HMH.PHAINT ---
MEDICATION RECONCILIATION COMPLETED ON PATIENT USING MAR FROM LONGTERM. -STEPHANIE NICKERSON, JENNYD
[2020-08-17 16:54] LABS: POC Glucose,Bedside 278 (70-110)
--- NOTE | 2020-08-17 19:58 | PC.NURSE ---
A&OX4. PT HAS TOLERATED 2L FAIRLY WELL THIS SHIFT. PT HAD TO BE TURNED UP TO 4L AFTER RECEIVING MORPHINE FOR ABOUT A HOUR BUT IS BACK DOWN TO 2L. RESPIRATIONS REGULAR AND UNLABORED. SCATTERED WHEEZES NOTED THROUGHOUT. +2 PITTING EDEMA NOTED TO RLE. SCUD IN PLACE. DRESSING NOTED TO L LEFT R/T L BELOW THE KNEE AMPUTATION. SERGIO DRAIN IN PLACE. PT HAD REPORTED PAIN TWICE. SHE RECEIVED PERCOCET ONCE AND ON REASSESSMENT SHE STATED IT HADN'T HELPED SO; PT WAS ADMINISTERED MORPHINE. SHE STATED THAT HELPED A LOT. BOTH LEGS HAVE BEEN ELEVATED THROUGHOUT SHIFT. ICE PACK IN PLACE TO L KNEE. PT WAS EDUCATED ON HOW TO USE INCENTIVE SPIROMETER AND WAS ENCOURAGED TO USE IT 10 TIMES EVERY HOUR AWHILE AWAKE. SULTANA CATHETER IN PLACE W YELLOW URINE NOTED. NO KINKS NOTED. ACTIVE BOWEL SOUNDS HEARD IN ALL 4 QUADRANTS. SOFT AND NONTENDER ABDOMEN. NO BM THIS SHIFT. WEAKNESS NOTED TO R SIDE OF BOTH FROM HISTORY OF STROKE IN OCTOBER OF 2019 AND MARCH OF 2020. SHE IS ABLE TO MOVE HER HAND SOME. SHE IS CURRENTLY RECEIVING THERAPY AT [facility]. PT TOLERATED REGULAR DIET WELL. DRY SKIN NOTED TO BOTTOM OF R FOOT. CRUSTY SORE NOTED TO TOP OF R FOOT. PHOTO CONSENT SIGNED AND PICTURES WERE TAKEN. PICC NOTED TO L UPPER CHEST. NS INFUSING AT 75ML/HR. PT IS REQUESTING TO BE MOVED TO A DIFFERENT BED AND DIFFERENT ROOM BECAUSE SHE IS CLAUSTROPHOBIAC AND STATES THE BED IS UNCOMFORTABLE. MIXED [employer] F[employer] WORKER AWARE. PT IS CURRENTLY IN BED W CALL LIGHT WITHIN REACH. BED IN LOWEST POSITION. VSS. WILL CONTINUE TO MONITOR.
[2020-08-18] VITALS (16 sets, daily range): BP systolic 109–157; BP diastolic 46–76; PULSE 53–91; RESP 18–21; TEMP 36.1–37.1; O2SAT 90–95; BMI 43.0; BMI 19.5
[2020-08-18 01:39] LABS: POC Glucose,Bedside 376 (70-110)
--- NOTE | 2020-08-18 05:01 | PC.NURSE ---
PT. C/O PAIN X2 TO LLE. LLE DSG IN PLACE, C/D/I. SERGIO DRAIN WITH SEROSANGUINEOUS DRAINAGE. BLE ELEVATED WITH ICE PACK INTERMITTENTLY PLACED TO SX SITE.
[2020-08-18 06:40] LABS: POC Glucose,Bedside 290 (70-110)
[2020-08-18 06:57] LABS: Basophils % 0.2 % (0.1-2.0); Eosinophils % 0.3 % (0.1-12.0); Hematocrit 27.4 % (37.0-47.0); Hemoglobin 8.6 g/dL (12.2-16.2); Lymphocytes # 1.3 K/mm3 (0.7-4.5); Lymphocytes % 11.2 % (10-50); Mean Corpuscular HGB Conc 31.4 g/dL (31.8-35.4); Mean Corpuscular Hemoglobin 28.7 pg (27.0-31.2); Mean Corpuscular Volume 91.4 fl (81-99); Mean Platelet Volume 8.2 fl (7.4-10.4); Monocytes # 0.7 K/mm3 (0.1-1.0); Monocytes % 6.1 % (1.7-9.3); Neutrophils # 9.7 K/mm3 (1.8-7.8); Neutrophils % 82.2 % (37.0-80.0); Platelet Count 282 K/mm3 (142-424); White Blood Count 11.8 K/mm3 (4.8-10.8)
[2020-08-18 07:00] LABS: Chloride 94 mmol/L (98-107); Potassium 4.4 mmoL/L (3.5-5.1); Sodium 134 mmol/L (136-145)
[2020-08-18 07:03] LABS: Anion Gap 11.4 mEq/L (5-15); Blood Urea Nitrogen 19 mg/dl (7-17); Calcium 8.3 mg/dl (8.4-10.2); Carbon Dioxide 33 mmol/L (22.0-30.0); Creatinine Clearance Estimated 72 mL/min (50-200); Estimated Glomerular Filt Rate 65 ml/min (>60); GFR (African American) 79 ML/MIN (>60); Glucose 259 mg/dl (74-100)
[2020-08-18 07:09] LABS: C-Reactive Protein 16.5 mg/L (0-4)
--- NOTE | 2020-08-18 07:40 | HMH.ANESII ---
[facility] Anesthesia Record Part II Discharge Time: 13:13 Destination: Medical Surgical Department PACU nurse assessment reviewed?: Yes Patient Condition:: Good Anesthesia Complications:: None Swallowing reflex intact?: Yes Cyanosis?: No Blood Pressure: 148/76 Pulse Rate: 89 Temperature: 97.0 F Mental Status: Alert & Oriented Pain level:: 7 Nausea and/or vomitting:: None Intake, IV Amount: 0 (Normovolemic)
[2020-08-18 08:07] LABS: Erythrocyte Sedimentation Rate 116 mm/hr (0-30)
--- NOTE | 2020-08-18 08:29 | PC.NURSE ---
Photos being uploaded by myself were taken on 08/17/20 by Benny Garvin RN as part of her skin integrity assessment.
--- NOTE | 2020-08-18 08:45 | PC.NURSE ---
BKA ON LEFT LOWER EXTREMITY. DRESSING INTACT WITH SERGIO DRAIN NOTED. SEROSANG DRAINAGE. RIGHT SIDED WEAKNESS NOTED R/T PREVIOUS STROKE. PATIENT HAVING PAIN 8/10 THIS AM. COMPLAINS OF PINS AND NEEDLES IN BKA. WILL CONTINUE TO MONITOR.
[2020-08-18 08:55] LABS: POC Glucose,Bedside 111 (70-110)
[2020-08-18 09:20] LABS: POC Glucose,Bedside 300 (70-110)
--- NOTE | 2020-08-18 09:21 | HMH.CONS ---
*Admission Date: 08/17/20 *Reason for consult:: medical *History of present illness: 54-year-old female presents for initial orthopedic evaluation of the left lower extremity, referred by Dr. Rutledge after extensive limb salvage efforts have failed. The patient has diabetes with peripheral neuropathy and a history of ulcers that have led to previous amputations. She underwent left second and third digit amputation, heel ulcer debridement, SEAN on 01/05/2020. This was followed by I&D, Chopart amputation, bone biopsy and the rotational skin flap L foot performed on 05/17/2020. Cultures at that time were positive for E. coli in the fifth metatarsal and calcaneus, group B strep in the heel wound. Pathology was negative for acute osteomyelitis in the calcaneus but positive in the fifth metatarsal. She had a wound dehiscence of the Chopart amputation on the left foot, which led to I&D with wound closure on 07/06/2020. Left foot wound cultures at that time were positive for yeast as well as gram-positive cocci. Left talus bone culture and medial ankle bone cultures were positive for MRSA. Pathology of left talus and medial ankle bone positive for chronic osteomyelitis. Radiographic evidence of osteomyelitis is present as well on x-rays. She is currently receiving IV vancomycin via PICC line at the SNF where she is residing; additionally she is on oral Levaquin and doxycycline. PMH = h/o CVA w/R-sided weakness, HL, DM w/neuropathy, HTN, anxiety, depression, obesity (BMI 40), PVD, hypothyroidism, COPD, vitamin D deficiency, tobacco dependence, hypertensive heart disease, CAD PSH = L foot amputations (2; toes --> Chopart); LLE arterial stenting Allg = protamine Meds = tylenol, albuterol, amlodipine, ASA 81, atorvastatin, tessalon perles, budesonide-formoterol, buspirone, vitamin D, duloxetine, gabapentin, [place] 7.5, insulin (glargine and Humulin 70/30), ipratropium-albuterol, levofloxacin, levothyroxine, lisinopril, Xarelto (2.5mg BID), sitagliptin, spiriva, tramadol, vitamin B SocHx = former smoker (1ppd; 30 pack-yrs); disabled LABS: WBC ESR CRP 7//20 14.5 70 47 mg/L 06/08/20 6.6 45 4.6 06/15/20 7.1 56 4.1 06/22/20 6.6 47 6.1 07/04/20 7.7 50 3.9 HgbA1C 7.1 08/04/20 7.3 27 5.7 08/11/20 7.5 88 12 the patient underwent L BKA this morning without complication EBL = 250 cc UOP = 500cc IVF = 900cc NS [facility] History I have reviewed the patient's past medical history: Yes Medical History: Reports:: Anxiety, Chronic Obstructive Pulmonary Disease (COPD), Coronary Artery Disease, Cerebrovascular Accident, Depression, Diabetes Mellitus Type 2, Hyperlipidemia, Hypertension, Peripheral Artery Disease, Peripheral Vascular Disease Denies:: Cancer, Diabetes Mellitus Type 1, Internal Pacemaker, MRSA, Seizures *Have you ever received a pneumonia vaccine?: Yes *Have you received a flu vaccine this season?: Yes Other Medical History: Reports: Cataracts, Hypothyroidism, Thyroid Disease. Denies: Blood Transfusion Reaction Anesthesia experience/problems:: No prior complications Laterality Cases: Bilateral: Other Other Surgeries: Yes: Cardiac Catheterization, Cardiac Surgery, Colonoscopy, Coronary Stent, Thyroidectomy, Tubal Ligation, Other. No: Pacemaker Amputation: Yes (Toe left big, L BELOW THE KNEE) Fractures: No - *Social History Last grade of school completed: GED Smoking Status: Former smoker Tobacco Type: cigarettes # Packs/Day (cigarettes): 1 #Yrs smoked (if former smoker): 30 Smoking End Date: 06/2020 Alcohol Intake: never Substance Use Type: denies use *Occupational Status:: disabled Housing: halfway Household Members: caregiver *Travel in the last 8 weeks: None - Psychiatric History Pschychiatric History:: Reports:: Anxiety, Depression Family Hx:: Cancer, Diabetes, Heart Attack, Hyperlipidemia, Hypertension Review of Systems - Constitutional Denies anorexia, Denies headache(s) - Eyes Denies blurry vision - ENT Denies b
[2020-08-18 11:25] LABS: POC Glucose,Bedside 274 (70-110)
--- NOTE | 2020-08-18 11:30 | HMH.PTEV ---
Physical Therapy Evaluation Rehab PT IP Evaluation Start: 08/17/20 12:46 Freq: ONCE Status: Active Protocol: Document 08/18/20 11:24 PHORJB (Rec: 08/18/20 11:29 PHORNE [id number]) Subjective/History History History 54 yowf adm to [facility] for L BKA due to chronic infection and several prior foot amputations . Pt [facility] [place] to adm with hx of CVA with R hemiplegia. She reports she was using a lift for all transfers prior to adm. Subjective Subjective Pt reports pain in the R shld and L residual limb. Rehab PT IP Eval Objective Appearance Patient Behavior Appropriate Patient Orientation Person,Place,Time Difficulty following instructions none Speech Pattern Clear Ambulation Patient Able to Ambulate No Balance Ability to Arise Able, uses arms to help Sitting Balance Steady, safe Dynamic Sitting Balance Ability Fair Transfers Bed Transfer Ability Moderate x 2 (50% assist) Chair Transfer Ability Total/Dependent (100%) ROM LLE PT ROM Status ABN Abnormal ROM Comment NT due to stump wrapping. RLE PT ROM Status WFL LUE PT ROM Status WFL RUE PT ROM Status ABN Abnormal ROM Comment shld 0-70 felx/abd grossly MMT LLE PT MMT ABN Abnormal MMT Grade NT due to stump wrapping RLE PT MMT ABN Abnormal MMT Grade grossly 1/5 LUE PT MMT WFL RUE PT MMT ABN Abnormal MMT Grade elbow 3/5 otherwise 2-/5 at most Rehab PT IP prob,goals,plan Problems Date of Evaluation: 08/18/20 PT IP Problems Bed Mobility,Transfers,Balance ,Self care Rehab Potential Rehab Potential Fair Plan PT Intervention Plan Bed Mobility,Transfers,Balance ,Therapeutic Exercise PT Plan Frequency BID Duration LOS Discharge Goals Bed Transfer Ability Moderate x 1 (50% assist) Discharge Plan PT Discharge Plan Pt is most appropriate to return to [facility] once medically stable. G -code Required No Eval Complexity Eval Charge Codes 04240 - High Complexity
--- NOTE | 2020-08-18 11:51 | HMH.OTEV ---
OT Inpatient Evaluation Rehab OT IP Evaluation Start: 08/17/20 12:46 Freq: ONCE Status: Complete Protocol: Document 08/18/20 11:34 YAZROSE (Rec: 08/18/20 11:51 IGOR [id number]) Rehab OT IP Assessment Subjective History 54 year old female admitted to [facility] on 08/17/20 for BKA for L LE gangrene osteomyelitis. PMH : CVA R weakness, HL, DM with neuroplasty, HTN, anxiety, depression, hypothyroidism, COPD, CAD, hx of ulcers led to previous amputation, cellulitis of L foot. Subjective I just hurt on my left knee and right shoulder. Objective Patient Orientation Person,Place,Time,Name,Age, Birthday,Day of Month,Day of Week,Month,Year,Time of Day, Patient Baseline,Situation Upper Extremity Gross ROM WFL Shoulder ROM Limitations Pain Elbow ROM Limitations Pain Bed Mobility bed mobility-scooting,bed mobility - supine/sit,bed mobility - rolling Assist Level Moderate x 2 (50% assist) Feeding Ability Independent Lower Body Dressing Ability Unable/Dependant Upper Body Dressing Ability Assistance X1 Bathing Ability Assistance x2 Overall Commode/Toilet Transfer Ability Total Dependance decrease in endurance Yes Rehab OT IP prob,goals,plan Problems Date of Evaluation: 08/18/20 OT IP Problems Bed Mobility,Transfers,Balance ,Self care,Safety Rehab Potential Rehab Potential Good Equipment Needs Assistive Devices Wheelchair Plan OT intervention Plan Bed Mobility,Transfers,Balance ,Self care,Therapeutic Exercise OT Plan Frequency Daily Duration LOS Discharge Goals Bed Mobility Ability Assistance x1 Sit to Stand Chair Transfer Ability Total/Dependent (100%) Chair Transfer Ability Total/Dependent (100%) Chair Transfer Technique Mechanical Lift Chair Transfer Assistive Devices Mechanical Lift Self care skills uses utensils to feed self Feeding Ability Independent Lower Body Dressing Ability Assistance X1 Upper Body Dressing Ability Standby Assistance Bathing Ability Assistance x1 Performing Toilet Hygiene Ability Maximum Assistance decrease in endurance Yes Disc
--- NOTE | 2020-08-18 12:15 | PC.NURSE ---
DR. MARES AT BEDSIDE. REMOVING DRESSING AND CAST. REMOVE SERGIO DRAIN. PT TOLERATED WELL. LINUS WRAPPED RE-APPLIED TO PATIENTS LEG. NO ACTIVE BLEEDING NOTED. MD ORDERED TO INCREASE PERCOCET TO EVERY 4 HOURS INSTEAD OF EVERY 6 HOURS.
--- NOTE | 2020-08-18 12:30 | HMH.ORTHPN ---
Subjective Date: 08/18/20 Time: 12:00 Principal diagnosis: s/p L BKA Interval history: The patient is doing well this morning and has been sitting on the edge of the bed since her PT session earlier. She reports pain in the left leg and feels her splint is uncomfortable. No fevers or chills overnight, vitals stable. SERGIO drain with 100cc out first shift after surgery, 30cc the second shift. Scant output in drain now. Glucose has been 274-376 since surgery. Nix remains in place. No chest pain or shortness of breath reported. PN: Obj Ex Vital signs: Temp Pulse Resp BP Pulse Ox 98.1 F 84 20 129/63 94 L 08/18/20 08:43 08/18/20 08:45 08/18/20 08:45 08/18/20 08:43 08/18/20 08:45 - Constitutional no acute distress, morbidly obese - Routine HEENT Exam Head: Present: normocephalic Eye: Present: EOMI ENT: Present: mucous membranes moist - Routine Neck Exam Present: supple, trachea midline - Routine Respiratory Exam Absent: respiratory distress, wheezes - Routine Cardiovascular Exam Present: RRR - Routine Abdominal Exam Present: soft. Absent: tenderness - Routine Extremities Exam Comments: LLE surgical dressings/splint intact w/o strikethrough SERGIO drain to suction, scant output - Routine Skin Exam Present: warm - Routine Neurological Exam Present: alert, oriented X3, moving all extremities, normal tone, vision grossly intact, hearing grossly intact, normal speech. Absent: sensory deficit, motor deficit, altered mental status - Routine Psychiatric Exam Present: normal affect - Urinary Catheter Management Nix Cath placed during this visit: no Progress Note: A&P (1) Cellulitis of left foot Status: Acute (2) Diabetic Foot Ulcer Status: Acute (3) Morbid obesity with body mass index (BMI) of 40.0 to 44.9 in adult Status: Acute (4) Neuropathy Status: Acute (5) Abnormal ankle brachial index (NICOLAS) Status: Chronic (6) COPD (chronic obstructive pulmonary disease) Status: Chronic (7) Diabetes mellitus Status: Chronic (8) Diabetic neuropathy, type II diabetes mellitus Status: Chronic (9) Edema of left lower extremity Status: Chronic (10) Gangrene of left foot Status: Chronic (11) History of CVA (cerebrovascular accident) Status: Chronic (12) History of amputation of left great toe Status: Chronic (13) Recent cerebrovascular accident (CVA) Status: Chronic (14) Tobacco dependence syndrome Status: Chronic Assessment and Plan for All Diagnoses:: 54yo F POD #1 s/p L BKA for gangrene, osteomyelitis -- remain NWB LLE, elevate limb on 2 pillows at all times; splint removed today -- SERGIO drain pulled today -- reinforce dressing for any strikethrough; will change dressings tomorrow -- pain meds: po percocet with IV morphine for breakthrough PRN -- continue pre-op antibiotics: IV vanc + oral levoquin/doxy; will plan to continue until intra-op cultures/path resulted and ESR/CRP trend to normal values -- PT/OT to continue while admitted -- will transfuse 1 unit PRBC today -- anticipate d/c back to SNF tomorrow
--- NOTE | 2020-08-18 15:23 | PC.NURSE ---
bernardo catheter removed and purewick placed at this time. no concerns voiced by patient at this time.
--- NOTE | 2020-08-18 16:30 | PC.NURSE ---
no changes from previous assessment. Lungs cta and bowel sounds active x4. no bm this shift. BKA left- wrapped in karla bandage. no bleeding noted or drainage. Right leg swelling 3+. Both elevated per order. Purwick in place as well. PICC in upper left arm. Infusing without difficulty. pt has had intermittent pain today. rates 8/10 at times. Also complains of phantom limb pain. medicated per jan. patient has set up this afternoon. done very well. no distress noted.
[2020-08-18 16:57] LABS: POC Glucose,Bedside 256 (70-110)
[2020-08-18 18:10] LABS: Hematocrit 28.9 % (37.0-47.0); Hemoglobin 9.4 g/dL (12.2-16.2)
--- NOTE | 2020-08-18 18:37 | PC.NURSE ---
all charting and care done under my direct supervision
[2020-08-18 21:12] LABS: POC Glucose,Bedside 191 (70-110)
--- NOTE | 2020-08-19 03:14 | PC.NURSE ---
Pt A&O x3 and is currently resting in bed. Has c/o pain to LLE with a rating between 10 earlier this shift and 5 this am. Pt describes pain as burning and sharp, but has since improved this shift. Has sat up on side of bed this shift. DSG also had to be changed after pt accidentally took it off in bed during shift change. Incision clean. No drainage noted to site. DSG is currently C/D/I. Scds on RLE. Pt is on 2L NC. O2 sats in low 90s. Lungs CTA. Pt educated on use of incentive spirometer. BS active. Pt has (R) side weakness from Hx of CVA. Has required assist x2 for repositioning in bed. Pt is incontinent of urine. PurWick in place. VSS. Pt has been sinus jillian at times. No other concerns. Will continue to monitor.
[2020-08-19 03:53] VITALS: BP 127/64; PULSE 87; RESP 20; TEMP 36.8; O2SAT 90
[2020-08-19 05:11] VITALS: BMI 44.7
--- NOTE | 2020-08-19 05:13 | PC.NURSE ---
The bed in was malfunctioning so we had to unplug it and replug it back in to get the patient weight
[2020-08-19 06:38] LABS: POC Glucose,Bedside 168 (70-110)
[2020-08-19 07:48] VITALS: PULSE 80; O2SAT 91
[2020-08-19 07:59] VITALS: BP 104/47; PULSE 83; RESP 20; TEMP 36.9; O2SAT 90
[2020-08-19 08:00] VITALS: O2SAT 91
[2020-08-19 09:03] LABS: Basophils # 0.1 K/mm3 (0-0.2); Basophils % 0.4 % (0.1-2.0); Eosinophils # 0.3 K/mm3 (0.0-0.4); Eosinophils % 2.4 % (0.1-12.0); Hematocrit 27.9 % (37.0-47.0); Lymphocytes # 2.1 K/mm3 (0.7-4.5); Lymphocytes % 16.2 % (10-50); Mean Corpuscular HGB Conc 32.1 g/dL (31.8-35.4); Mean Corpuscular Hemoglobin 29.1 pg (27.0-31.2); Mean Corpuscular Volume 90.6 fl (81-99); Monocytes # 0.9 K/mm3 (0.1-1.0); Monocytes % 6.9 % (1.7-9.3); Neutrophils # 9.5 K/mm3 (1.8-7.8); Neutrophils % 74.1 % (37.0-80.0); Platelet Count 248 K/mm3 (142-424); Red Blood Count 3.08 M/mm3 (4.20-5.40); Red Cell Distribution Width 14.6 % (11.5-17.5); White Blood Count 12.9 K/mm3 (4.8-10.8)
[2020-08-19 09:10] LABS: Chloride 97 mmol/L (98-107); Potassium 4.2 mmoL/L (3.5-5.1); Sodium 136 mmol/L (136-145)
[2020-08-19 09:13] LABS: Anion Gap 7.2 mEq/L (5-15); Blood Urea Nitrogen 18 mg/dl (7-17); Calcium 8.4 mg/dl (8.4-10.2); Carbon Dioxide 36 mmol/L (22.0-30.0); Creatinine Clearance Estimated 81 mL/min (50-200); Estimated Glomerular Filt Rate 75 ml/min (>60); GFR (African American) 90 ML/MIN (>60); Glucose 210 mg/dl (74-100)
[2020-08-19 09:28] LABS: Vancomycin,Trough 13.2 ug/mL (5.0-10.0)
--- NOTE | 2020-08-19 09:36 | HMH.PHACONS ---
- Pharmacy Consult Date: 08/19/20 Time: 09:36 Referring provider: DR. MARES Reason for Consult:: VANCOMYCIN TROUGH LEVEL Allergies and ADEs:: Allergies Allergy/AdvReac Type Severity Reaction Status Date / Time protamine Allergy Verified 08/11/20 11:21 Home Medications:: Home Medications Medication Instructions Recorded Confirmed Type acetaminophen 500 mg tablet 1,000 mg PO Q6HP PRN 12/22/17 08/17/20 History vitamin B complex 1 tab PO DAILY 12/22/17 08/17/20 History tiotropium bromide 2.5 2 puff IH DAILY 02/02/19 08/17/20 History mcg/actuation mist for inhalation Albuterol Sulfate [Proventil Hfa] 2 puffs IH Q4HP PRN 01/04/20 08/17/20 History Aspirin [Low Dose Aspirin EC] 81 mg PO DAILY 01/04/20 08/17/20 History Budesonide/Formoterol Fumarate 2 puff IH Q12H 01/04/20 08/17/20 History [Symbicort 160-4.5 Mcg Inhaler] Buspirone HCl [Buspar 10mg 10 mg PO TID 01/04/20 08/17/20 History tablet] Cholecalciferol (Vitamin D3) 1,000 unit PO DAILY 01/04/20 08/17/20 History [Vitamin D3 1,000 Unit Cap] Levothyroxine Sodium 150 mcg PO DAILY 01/04/20 08/17/20 History [Levothyroxine 150mcg (0.15mg) Tab] tramadol 50 mg tablet 50 mg PO Q8H PRN #90 tab 03/29/20 08/17/20 Rx Amlodipine Besylate [Amlodipine 10 mg PO DAILY 05/16/20 08/17/20 History 10mg Tab] Duloxetine HCl [Cymbalta] 60 mg PO DAILY 05/16/20 08/17/20 History Insulin Glargine,Hum.rec.anlog 20 units SQ HS 05/16/20 08/17/20 History [Lantus Solostar] Insulin NPH Hum/Reg Insulin Hm 10 units SQ BID 05/16/20 08/17/20 History [Novolin 70-30 Flexpen] Ipratropium/Albuterol Sulfate 3 ml IH Q6H PRN 05/16/20 08/17/20 History [Duoneb 3mL neb] Rivaroxaban [Xarelto 2.5mg Tab*] 2.5 mg PO BID 05/16/20 08/17/20 History Sitagliptin Phosphate [Januvia 100 mg PO DAILY 05/16/20 08/17/20 History 100mg tablet] Urea [Uramaxin] 1 applic TOPICAL BID 05/16/20 08/17/20 History lisinopriL [Lisinopril 10mg Tab] 10 mg PO DAILY 05/16/20 08/17/20 History Ergocalciferol (Vitamin D2) 50,000 unit PO WEEKLY 05/17/20 08/17/20 History [Drisdol] Albuterol Sulfate [Albuterol 2.5 mg IH Q4HP PRN vial.neb 05/19/20 08/17/20 Rx 0.083% 2.5mg/3mL neb] collagenase clostridium histo. 250 1 applic TOPICAL QDAY #30 g 06/06/20 08/17/20 Rx unit/gram topical ointment gabapentin 600 mg tablet 600 mg PO QID #120 tab 06/19/20 08/17/20 Rx Levofloxacin/D5w 750 mg/150 ml 750 mg IV DAILY 07/06/20 08/17/20 History [Levofloxacin 750mg/150mL Premix IVPB] Vancomycin HCl [Vancomycin 1000mg 2,000 mg IV Q24H 07/06/20 08/17/20 History Vial] hydrocodone 7.5 mg-acetaminophen 1 tab PO Q4-6H PRN 30 Days #120 tab 07/12/20 08/17/20 Rx 325 mg tablet benzonatate 100 mg capsule 100 mg PO BID PRN #10 cap 08/04/20 08/17/20 Rx Atorvastatin Calcium [Lipitor 80mg 80 mg PO HS 08/17/20 08/17/20 History Tab] buPROPion HCL [Wellbutrin SR 75mg 75 mg PO BID 08/17/20 08/17/20 History Tablet] Height: 1.75 m Weight: 137.013 kg Laboratory Results:: Laboratory Results - last 24 hr 08/17/20 09:10: Blood Type O Negative, Antibody Screen Negative, Crossmatch (AHG) See Detail 08/18/20 11:16: POC Glucose 274 H 08/18/20 13:45: Blood Type Confirm O Negative 08/18/20 16:30: POC Glucose 256 H 08/18/20 17:55: Hgb 9.4 L, Hct 28.9 L 08/18/20 20:40: POC Glucose 191 H 08/19/20 06:16: POC Glucose 168 H 08/19/20 08:45: Vancomycin Trough 13.2 H 08/19/20 08:45: WBC 12.9 H, RBC 3.08 L, Hgb 9.0 L, Hct 27.9 L, MCV 90.6, MCH 29.1, MCHC 32.1, RDW 14.6, Plt Count 248, MPV 8.0, Neut % (Auto) 74.1, Lymph % (Auto) 16.2, [place] % (Auto) 6.9, Eos % (Auto) 2.4, Baso % (Auto) 0.4, Neut # (Auto) 9.5 H, Lymph # (Auto) 2.1, [place] # (Auto) 0.9, Eos # (Auto) 0.3, Baso # (Auto) 0.1 08/19/20 08:45: Sodium 136, Potassium 4.2, Chloride 97 L, Carbon Dioxide 36 H, Anion Gap 7.2, BUN 18 H, Creatinine 0.80, Estimated Creat Clear 81, Estimated GFR 75, Est GFR ( Amer) 90, Glucose 210 H, Calcium 8.4 [facility]
[2020-08-19 11:14] VITALS: BP 153/78; PULSE 89; RESP 18; TEMP 37.3; O2SAT 92
--- NOTE | 2020-08-19 11:40 | P.PN_ITS ---
Subjective Date: 08/19/20 Time: 10:30 Principal diagnosis: s/p L BKA Interval history: The patient is resting comfortably this morning. She is sleeping soundly but when awoken reports severe pain. She is apprehensive about returning to the longterm today because she says they are short staffed on the weekends. She declined to participate with physical therapy this morning. No fevers or chills reported overnight, no drainage through her dressings. Hemoglobin responded appropriately to transfusion yesterday. PN: Obj Ex Vital signs: Temp Pulse Resp BP Pulse Ox 99.2 F 89 18 153/78 H 92 L 08/19/20 11:14 08/19/20 11:14 08/19/20 11:14 08/19/20 11:14 08/19/20 11:14 - Constitutional no acute distress, morbidly obese - Routine HEENT Exam Head: Present: normocephalic Eye: Present: EOMI ENT: Present: mucous membranes moist - Routine Neck Exam Present: trachea midline - Routine Respiratory Exam Absent: respiratory distress, wheezes - Routine Cardiovascular Exam Present: RRR - Routine Abdominal Exam Present: soft, obese. Absent: tenderness - Routine Extremities Exam Comments: LLE surgical dressings/splint intact w/o strikethrough dressings removed, incision c/d/i with sutures intact no periwound erythema, no active drainage, no incisional necrosis/duskiness skin pink and warm with brisk capillary refill - Routine Skin Exam Present: warm - Routine Neurological Exam Present: alert, oriented X3, moving all extremities, normal tone, vision grossly intact, hearing grossly intact, normal speech. Absent: sensory deficit, motor deficit, altered mental status - Urinary Catheter Management Nix Cath placed during this visit: yes, but has since been removed by the nurse Urethral indwelling: No Insertion date: 08/17/20 Removal date: 08/18/20 Progress Note: A&P (1) Cellulitis of left foot Status: Acute (2) Diabetic Foot Ulcer Status: Acute (3) Morbid obesity with body mass index (BMI) of 40.0 to 44.9 in adult Status: Acute (4) Neuropathy Status: Acute (5) Abnormal ankle brachial index (NICOLAS) Status: Chronic (6) COPD (chronic obstructive pulmonary disease) Status: Chronic (7) Diabetes mellitus Status: Chronic (8) Diabetic neuropathy, type II diabetes mellitus Status: Chronic (9) Edema of left lower extremity Status: Chronic (10) Gangrene of left foot Status: Chronic (11) History of CVA (cerebrovascular accident) Status: Chronic (12) History of amputation of left great toe Status: Chronic (13) Recent cerebrovascular accident (CVA) Status: Chronic (14) Tobacco dependence syndrome Status: Chronic Assessment and Plan for All Diagnoses:: 54yo F POD #2 s/p L BKA for gangrene, osteomyelitis -- remain NWB LLE, elevate limb on 2 pillows at all times -- dressings changed today; change once daily at [facility] -- pain meds: po percocet with IV morphine for breakthrough PRN -- continue pre-op antibiotics: IV vanc + oral levoquin/doxy; will plan to continue until intra-op cultures/path resulted and ESR/CRP trend to normal values -- PT/OT to continue at [facility] -- d/c back to [facility] today; follow-up in clinic 08/24/20 at 10am
--- NOTE | 2020-08-19 11:44 | HMH.DCSUM ---
General - General Admission date:: 08/17/20 Discharge date: 08/19/20 HPI HPI: 54-year-old female presents for initial orthopedic evaluation of the left lower extremity, referred by Dr. Rutledge after extensive limb salvage efforts have failed. The patient has diabetes with peripheral neuropathy and a history of ulcers that have led to previous amputations. She underwent left second and third digit amputation, heel ulcer debridement, SEAN on 01/05/2020. This was followed by I&D, Chopart amputation, bone biopsy and the rotational skin flap L foot performed on 05/17/2020. Cultures at that time were positive for E. coli in the fifth metatarsal and calcaneus, group B strep in the heel wound. Pathology was negative for acute osteomyelitis in the calcaneus but positive in the fifth metatarsal. She had a wound dehiscence of the Chopart amputation on the left foot, which led to I&D with wound closure on 07/06/2020. Left foot wound cultures at that time were positive for yeast as well as gram-positive cocci. Left talus bone culture and medial ankle bone cultures were positive for MRSA. Pathology of left talus and medial ankle bone positive for chronic osteomyelitis. Radiographic evidence of osteomyelitis is present as well on x-rays. She is currently receiving IV vancomycin via PICC line at the SNF where she is residing; additionally she is on oral Levaquin and doxycycline. PMH = h/o CVA w/R-sided weakness, HL, DM w/neuropathy, HTN, anxiety, depression, obesity (BMI 40), PVD, hypothyroidism, COPD, vitamin D deficiency, tobacco dependence, hypertensive heart disease, CAD PSH = L foot amputations (2; toes --> Chopart); LLE arterial stenting Allg = protamine Meds = tylenol, albuterol, amlodipine, ASA 81, atorvastatin, tessalon perles, budesonide-formoterol, buspirone, vitamin D, duloxetine, gabapentin, [place] 7.5, insulin (glargine and Humulin 70/30), ipratropium-albuterol, levofloxacin, levothyroxine, lisinopril, Xarelto (2.5mg BID), sitagliptin, spiriva, tramadol, vitamin B SocHx = former smoker (1ppd; 30 pack-yrs); disabled LABS: WBC ESR CRP 7/9/20 14.5 70 47 mg/L 06/08/20 6.6 45 4.6 06/15/20 7.1 56 4.1 06/22/20 6.6 47 6.1 07/04/20 7.7 50 3.9 HgbA1C 7.1 08/04/20 7.3 27 5.7 08/11/20 7.5 88 12 the patient underwent L BKA this morning without complication EBL = 250 cc UOP = 500cc IVF = 900cc NS Hospital Course Hospital Course: The patient did well throughout her hospital course. She reported discomfort with her splint so it was removed on postoperative day 1. Surgical drain was removed on postoperative day 1 as well. Surgical dressings changed on postop day 2 and wound appears well. Pain was managed with a combination of oral and IV medication. The patient reports severe pain in the leg but has rested fairly comfortably most of the time. She had no fevers or chills during her stay, vitals remained stable. Glucose was elevated and remained so at discharge. She was continued on her baseline insulin regimen and given an additional sliding scale as needed. Nix catheter was removed on postoperative day 1. She was able to sit on the edge of the bed postop day 1 but declined therapy on postop day 2. She was medically appropriate for discharge on postop day 2 and was discharged back to the shelter in good condition. We will continue IV antibiotics and oral antibiotics until pathology and cultures have resulted. Will adjust antibiotic regimen appropriately pending those results. Also recommend increasing her gabapentin to help with her pain and phantom limb pain. Objective Vital signs: Temp Pulse Resp BP Pulse Ox 99.2 F 89 18 153/78 H 92 L 08/19/20 11:14 08/19/20 11:14 08/19/20 11:14 08/19/20 11:14 08/19/20 11:14 no acute distress, morbidly obese - *Routine HEENT Exam Head: Present: normocephalic Eye: Present: EOMI ENT: Present: mucous membranes moist - *Routine Neck Exam Present: trachea
[2020-08-19 12:01] LABS: POC Glucose,Bedside 195 (70-110)
--- NOTE | 2020-08-19 13:06 | HMH.ACPN2 ---
Internal Medicine - PN: Subj *Date: 08/19/20 *Time: 09:00 Interval history: pt states she [facility] to [facility] due to [facility] not having enough staff to care for me on the week end, pt states she would like to wait till friday. granddaughter at bedside. Exam Vital signs and Labs for Last 24 Hours: Temp Pulse Resp BP Pulse Ox 99.2 F 89 18 153/78 H 92 L 08/19/20 11:14 08/19/20 11:14 08/19/20 11:14 08/19/20 11:14 08/19/20 11:14 Laboratory Results - last 24 hr 08/17/20 09:10: Blood Type O Negative, Antibody Screen Negative, Crossmatch (AHG) See Detail 08/18/20 13:45: Blood Type Confirm O Negative 08/18/20 16:30: POC Glucose 256 H 08/18/20 17:55: Hgb 9.4 L, Hct 28.9 L 08/18/20 20:40: POC Glucose 191 H 08/19/20 06:16: POC Glucose 168 H 08/19/20 08:45: Vancomycin Trough 13.2 H 08/19/20 08:45: WBC 12.9 H, RBC 3.08 L, Hgb 9.0 L, Hct 27.9 L, MCV 90.6, MCH 29.1, MCHC 32.1, RDW 14.6, Plt Count 248, MPV 8.0, Neut % (Auto) 74.1, Lymph % (Auto) 16.2, [place] % (Auto) 6.9, Eos % (Auto) 2.4, Baso % (Auto) 0.4, Neut # (Auto) 9.5 H, Lymph # (Auto) 2.1, [place] # (Auto) 0.9, Eos # (Auto) 0.3, Baso # (Auto) 0.1 08/19/20 08:45: Sodium 136, Potassium 4.2, Chloride 97 L, Carbon Dioxide 36 H, Anion Gap 7.2, BUN 18 H, Creatinine 0.80, Estimated Creat Clear 81, Estimated GFR 75, Est GFR ( Amer) 90, Glucose 210 H, Calcium 8.4 08/19/20 11:44: POC Glucose 195 H I & O for Last 24 hours: Intake & Output 10/08/20 10/09/20 10/10/20 10/11/20 11:59 11:59 11:59 11:59 Intake Total 3300 / 3300 3033 / 3033 Output Total 2090 / 2090 3350 / 3350 Balance 1210 / 1210 -317 / -317 Weight 285 lb 290 lb 6.993 oz 302 lb 1 oz Microbiology Reports for the Last 24 Hours: Microbiology 08/17/20 11:30 Urine,Catheterized Urine Culture - Preliminary 08/17/20 11:30 Leg,Left - Left Gram Stain - Final 08/17/20 11:30 Leg,Left - Left Surgical Biopsy Culture - Preliminary NO GROWTH AFTER 24 HOURS 08/17/20 11:30 Leg,Left - Left Gram Stain - Final 08/17/20 11:30 Leg,Left - Left Surgical Biopsy Culture - Preliminary NO GROWTH AFTER 24 HOURS 08/17/20 11:30 Leg,Left - Left Gram Stain - Final 08/17/20 11:30 Leg,Left - Left Wound Culture - Preliminary NO GROWTH AFTER 24 HOURS - Constitutional no acute distress, obese - *Routine HEENT Exam Head: Present: normocephalic Eye: Present: PERRL ENT: Present: mucous membranes moist - *Routine Neck Exam Present: supple. Absent: lymphadenopathy - *Routine Respiratory Exam Present: CTA bilaterally - *Routine Cardiovascular Exam Present: RRR - *Routine Abdominal Exam Present: soft, normoactive bowel sounds. Absent: tenderness - *Routine Extremities Exam Present: amputation. Absent: cyanosis, clubbing, edema - *Routine Skin Exam Present: warm. Absent: rash - *Routine Neurological Exam Present: alert, oriented X3 Assessment and Plan (1) Cellulitis of left foot Status: Acute Category: Medical Code(s): L03.116 - Cellulitis of left lower limb (2) Diabetic Foot Ulcer Status: Acute Qualifiers: Category: Medical Code(s): E11.621 - Type 2 diabetes mellitus with foot ulcer; L97.509 - Non-pressure chronic ulcer of other part of unspecified foot with unspecified severity (3) Morbid obesity with body mass index (BMI) of 40.0 to 44.9 in adult Status: Acute Category: Medical Code(s): E66.01 - Morbid (severe) obesity due to excess calories; Z68.41 - Body mass index [BMI]40.0-44.9, adult (4) Neuropathy Status: Acute Category: Medical Code(s): G62.9 - Polyneuropathy, unspecified (5) Abnormal ankle brachial index (NICOLAS) Status: Chronic Category: Medical Code(s): R68.89 - Other general symptoms and signs (6) COPD (chronic obstructive pulmonary disease) Status: Chronic Qualifiers: Category: Medical Code(s): J44.9 - Chronic obstruc
--- NOTE | 2020-08-19 17:02 | PC.NURSE ---
DURING BEDSIDE HANDOFF REPORT, IT WAS MENTIONED TO PT THAT 11 YO GRANDDAUGHTER WOULD NEED TO BE ACCOMPANIED BY AN ADULT WHILE PT IS ADMITTED FOR SAFETY ISSUES. PER REPORT, [address] AND [employer] INSTALLER HAD PREVIOUSLY HAD THIS CONVERSATION WITH PT AND PT STATED THAT SHE DID NOT HAVE ANYONE TO COME GET GRANDCHILD. DR. MARES NOTIFIED AND DURING BEDSIDE ASSESSMENT AND DRESSING CHANGE, DR. MARES AND CHUNG THOMPSON APRN NOTIFIED OF SITUATION AND CARE MANAGEMENT CONSULTED. NAVEEN NOGUERA FROM CARE MANAGEMENT CONTACTED THIS [employer] AND INSTRUCTED THAT IF PT WAS UNABLE TO ARRANGE TRANSPORT AND ADULT SUPERVISION FOR GRANDCHILD, TO CALL DISPATCH AND REQUEST TO SPEAK TO [employer]. PT WAS ABLE TO MAKE ARRANGEMENTS FOR GRANDCHILD, AND PT'S SISTER CAME TO HOSPITAL. PT AND FAMILY WERE EDUCATED ON HOSPITALS VISITATION POLICY OF ONLY ONE VISTOR AT A TIME, FAMILY REFUSED TO LEAVE UNTIL EMS TRANSPORT ARRIVED TO TRANSPORT PT BACK TO [facility]. WHILE WAITING ON EMS, PT AND FAMILY BECAME VERBALLY AGITATED WITH STAFF D/T SITUATION. VERBAL REDIRECTION AND DE-ESCALATION PROVIDED, NOT EFFECTIVE. REPORT CALLED TO SHARRI CALVO FROM [facility] AT 1540 AFTER NEGATIVE COVID SWAB TEST RESULTED. EMS TRANSPORTED PT AT 1600 WITH PT'S PERSON AL BELONGINGS. PT'S GRANDDAUGHTER AND PERSONAL W/C SENT HOME WITH SISTER.
== END 2020-08-19 16:00 | DRG 240 ==
LOC: 2ND 08:03
PROVIDERS: Family Medicine; Nurse Practitioner Family; Admitting Provider Orthopaedic Surgery; PCP Physician Assistant; Visit Provider Orthopaedic Surgery
PROC: (CPT 27880; principal; 2020-08-17 10:00)
DX: E11.52 Type 2 diabetes mellitus with diabetic peripheral angiopathy with gangrene (principal); I96 Gangrene, not elsewhere classified; L03.116 Cellulitis of left lower limb; I69.351 Hemiplegia and hemiparesis following cerebral infarction affecting right dominant side; Z68.41 Body mass index [BMI] 40.0-44.9, adult; M86.662 Other chronic osteomyelitis, left tibia and fibula; E11.621 Type 2 diabetes mellitus with foot ulcer; Z79.4 Long term (current) use of insulin; E11.42 Type 2 diabetes mellitus with diabetic polyneuropathy; E03.9 Hypothyroidism, unspecified; J44.9 Chronic obstructive pulmonary disease, unspecified; I11.9 Hypertensive heart disease without heart failure; E55.9 Vitamin D deficiency, unspecified; Z79.01 Long term (current) use of anticoagulants; Z79.82 Long term (current) use of aspirin; Z87.891 Personal history of nicotine dependence; Z79.52 Long term (current) use of systemic steroids; E11.69 Type 2 diabetes mellitus with other specified complication
CPT/HCPCS: 27880; 36415; 73590; 80048; 80202; 81001; 82962; 85014; 85018; 85025; 85651; 86140; 86850; 87070; 87075; 87086; 87205; 88307; 88311; 94640; 94761; 96374; 97110; 97163; 97165; 97530; J1956; J2405; J3370; P9016; U0003

== ENCOUNTER → 2020-09-07 13:40 | Outpatient (CLI) | payer MEDICARE, MEDICAID, SELFPAY ==
[2020-09-07 13:43] LABS: MANUAL DIFFERENTIAL MANUAL DIFFERENTIAL (MANUAL DIFF)
[2020-09-07 14:50] LABS: Erythrocyte Sedimentation Rate 134 mm/hr (0-30)
[2020-09-07 14:53] LABS: Chloride 96 mmol/L (98-107); Potassium 4.7 mmoL/L (3.5-5.1); Sodium 138 mmol/L (136-145)
[2020-09-07 14:54] LABS: Basophils # 0.1 K/mm3 (0-0.2); Basophils % 0.6 % (0.1-2.0); Eosinophils # 0.6 K/mm3 (0.0-0.4); Eosinophils % 5.7 % (0.1-12.0); Hematocrit 30.8 % (37.0-47.0); Lymphocytes # 2.1 K/mm3 (0.7-4.5); Lymphocytes % 21.1 % (10-50); Mean Corpuscular HGB Conc 32.6 g/dL (31.8-35.4); Mean Corpuscular Hemoglobin 27.9 pg (27.0-31.2); Mean Corpuscular Volume 85.4 fl (81-99); Monocytes # 0.7 K/mm3 (0.1-1.0); Monocytes % 6.6 % (1.7-9.3); Neutrophils # 6.5 K/mm3 (1.8-7.8); Neutrophils % 65.9 % (37.0-80.0); Platelet Count 467 K/mm3 (142-424); Red Cell Distribution Width 14.5 % (11.5-17.5); White Blood Count 9.9 K/mm3 (4.8-10.8)
[2020-09-07 14:55] LABS: Eosinophils % 5 % (0-3); Lymphocytes % 22 % (10-50); Monocytes % 4 % (2-9); Neutrophils % 69 % (42-76); Platelet Estimate Slight Increase; RBC Morphology Normal; Total Cells Counted 100
[2020-09-07 14:56] LABS: Anion Gap 12.7 mEq/L (5-15); Blood Urea Nitrogen 22 mg/dl (7-17); Calcium 9.2 mg/dl (8.4-10.2); Carbon Dioxide 34 mmol/L (22.0-30.0); Estimated Glomerular Filt Rate 65 ml/min (>60); GFR (African American) 79 ML/MIN (>60); Glucose 133 mg/dl (74-100)
[2020-09-07 15:02] LABS: C-Reactive Protein 11.5 mg/L (0-4)
== END ==
PROVIDERS: Visit Provider Orthopaedic Surgery
DX: L08.9 Local infection of the skin and subcutaneous tissue, unspecified (principal); T14.8XXA Other injury of unspecified body region, initial encounter
CPT/HCPCS: 36415; 80048; 85007; 85014; 85018; 85048; 85049; 85651; 86140

== ENCOUNTER 2020-09-14 12:42 | Outpatient (CLI) | payer MEDICARE, MEDICAID, SELFPAY ==
[2020-09-14 12:43] VITALS: BMI 41.3
--- NOTE | 2020-09-14 12:44 | XR_ITS ---
PROCEDURE: XR CHEST PORTABLE PICC PLAC CLINICAL HISTORY: PICC line placement COMPARISON: CT CHESTWO CT chest wo con from 10/28/2018 CR XR CHEST PORTABLE PICC PLAC from 05/18/2020 CR XR CHEST 2V from 06/27/2020 CR XR CHEST PORTABLE PICC PLAC from 07/07/2020 FINDINGS: The cardiomediastinal silhouette and pulmonary vascularity are within normal limits. Left upper extremity PICC line is present. The tip is in the region of the subclavian vein overlying the medial 1/3 of the left clavicle. Patchy density is present in the right lower lobe suggesting an area of atelectasis or infiltrate. There is inferior subluxation of the right humeral head. IMPRESSION: Left upper extremity PICC line tip in the region of the subclavian vein Patchy right lower lobe atelectasis or infiltrate. Dictated by: Jamison Jj MD 09/14/2020 13:06 Jamison Jj MD in [place] 09/14/2020 13:06
--- NOTE | 2020-09-14 12:47 | PC.NURSE ---
radiology staff at pt chairside to perform port cxr to verify picc line placement. pt here for picc line evaluation from dr. britt's office. pt a resident at [facility] and is receiving [facility] iv antibiotic therapy for a leg infection. ne reports that picc line does not flush and they are unable to get blood return. picc line assessed, yong cdi, however picc line seems to be pulled out approx 10cm from the insertion site. cxr ordered to verify picc line placement.
--- NOTE | 2020-09-14 13:43 | XR_ITS ---
PROCEDURE: XR CHEST PORTABLE PICC PLAC CLINICAL HISTORY: PICC line placement COMPARISON: CT CHESTWO CT chest wo con from 10/28/2018 CR XR CHEST 2V from 06/27/2020 CR XR CHEST PORTABLE PICC PLAC from 07/07/2020 CR XR CHEST PORTABLE PICC PLAC from 09/14/2020 FINDINGS: Left upper extremity PICC line has been placed. Tip is in good position in the region of SVC. Unremarkable cardiovascular structures with clear lungs. No acute bony abnormalities. IMPRESSION: Left upper extremity PICC line in good position. Dictated by: Jamison Jj MD 09/14/2020 14:01 Jamison Jj MD in [facility] 09/14/2020 14:01
--- NOTE | 2020-09-14 13:47 | PC.NURSE ---
allen verma rn consulted to place another picc, procedure complete at this time and pcxr to be performed at this time to confirm new picc placement.
--- NOTE | 2020-09-14 14:57 | PC.NURSE ---
Addendum entered by Kashmir Castellano RN 09/14/20 15:17: 09/14/20 1400 Original Note: 1320-picc line placed and verified in proper placement per radiologist. report called to chandni rico, nurse at [facility] and report given.
== END 2020-09-14 14:20 | disposition home or self-care (01) ==
LOC: INF 12:42
PROVIDERS: PCP Physician Assistant; Visit Provider Orthopaedic Surgery
DX: L03.116 Cellulitis of left lower limb (principal); I96 Gangrene, not elsewhere classified
CPT/HCPCS: 36569; 71045; C1751

== ENCOUNTER → 2020-09-21 12:25 | Outpatient (CLI) | payer MEDICARE, MEDICAID, SELFPAY ==
[2020-09-21 12:30] LABS: MANUAL DIFFERENTIAL MANUAL DIFFERENTIAL (MANUAL DIFF)
[2020-09-21 12:55] LABS: Basophils # 0.1 K/mm3 (0-0.2); Basophils % 0.6 % (0.1-2.0); Eosinophils # 0.5 K/mm3 (0.0-0.4); Hemoglobin 11.3 g/dL (12.2-16.2); Lymphocytes # 1.8 K/mm3 (0.7-4.5); Lymphocytes % 16.1 % (10-50); Mean Corpuscular HGB Conc 32.3 g/dL (31.8-35.4); Mean Corpuscular Hemoglobin 27.8 pg (27.0-31.2); Mean Corpuscular Volume 85.9 fl (81-99); Mean Platelet Volume 8.8 fl (7.4-10.4); Monocytes # 0.6 K/mm3 (0.1-1.0); Monocytes % 5.4 % (1.7-9.3); Neutrophils # 8.1 K/mm3 (1.8-7.8); Neutrophils % 73.9 % (37.0-80.0); Platelet Count 287 K/mm3 (142-424); Red Blood Count 4.07 M/mm3 (4.20-5.40); Red Cell Distribution Width 14.9 % (11.5-17.5)
[2020-09-21 13:52] LABS: Alanine Aminotransferase 12 U/L (12-78); Albumin Level 3.8 g/dl (3.5-5.0); Albumin/Globulin Ratio 1.2 (1.1-1.8); Alkaline Phosphatase 127 U/L (38-126); Anion Gap 13.5 mEq/L (5-15); Aspartate Amino Transferase 20 U/L (14-36); Bilirubin,Total 0.2 mg/dl (0.2-1.3); Blood Urea Nitrogen 29 mg/dl (7-17); Calcium 9.7 mg/dl (8.4-10.2); Carbon Dioxide 32 mmol/L (22.0-30.0); Chloride 100 mmol/L (98-107); Estimated Glomerular Filt Rate 52 ml/min (>60); GFR (African American) 63 ML/MIN (>60); Globulin 3.2 g/dL (1.3-3.2); Glucose 173 mg/dl (74-100); Potassium 4.5 mmoL/L (3.5-5.1); Sodium 141 mmol/L (136-145)
[2020-09-21 14:00] LABS: C-Reactive Protein 7.5 mg/L (0-4)
--- NOTE | 2020-09-21 14:00 | XR_ITS ---
PROCEDURE: XR TIBIA FIBULA LT 2V CLINICAL INDICATION: edema Edema at amputation site COMPARISON: CR XR TIBIA FIBULA LT 2V from 08/17/2020 FINDINGS: There has been prior below the knee amputation. A vascular stent is present in the femoral popliteal region and along the proximal aspect of the proximal tibia. No obvious bony erosive process at the amputation site. Surgical clips are present at this area. The surgical drain and splint has been removed. IMPRESSION: Prior below the knee amputation. No bony erosive process apparent. Dictated by: Jamison Jj MD 09/21/2020 16:34 Jamison Jj MD in [facility] 09/21/2020 16:34
[2020-09-21 15:01] LABS: Erythrocyte Sedimentation Rate 92 mm/hr (0-30)
[2020-09-21 15:43] LABS: Eosinophils % 1 % (0-3); Lymphocytes % 23 % (10-50); Monocytes % 5 % (2-9); Neutrophils % 71 % (42-76); Platelet Estimate Normal; RBC Morphology Normal; Total Cells Counted 100
== END ==
PROVIDERS: PCP Physician Assistant; Visit Provider Orthopaedic Surgery
DX: Z89.512 Acquired absence of left leg below knee (principal); R60.0 Localized edema; E11.9 Type 2 diabetes mellitus without complications; Z79.4 Long term (current) use of insulin
CPT/HCPCS: 36415; 73590; 80053; 85007; 85014; 85018; 85048; 85049; 85651; 86140

== ENCOUNTER 2020-10-04 11:20 | Outpatient (CLI) | payer MEDICARE, MEDICAID, SELFPAY ==
[2020-10-04 11:31] VITALS: BMI 41.3
[2020-10-04 12:00] LABS: Basophils % 0.4 % (0.1-2.0); Eosinophils # 0.6 K/mm3 (0.0-0.4); Eosinophils % 6.8 % (0.1-12.0); Hematocrit 32.8 % (37.0-47.0); Hemoglobin 9.9 g/dL (12.2-16.2); Lymphocytes # 1.8 K/mm3 (0.7-4.5); Lymphocytes % 20.3 % (10-50); Mean Corpuscular HGB Conc 30.1 g/dL (31.8-35.4); Mean Corpuscular Hemoglobin 26.5 pg (27.0-31.2); Mean Corpuscular Volume 88.3 fl (81-99); Mean Platelet Volume 7.8 fl (7.4-10.4); Monocytes # 0.6 K/mm3 (0.1-1.0); Monocytes % 6.7 % (1.7-9.3); Neutrophils # 5.8 K/mm3 (1.8-7.8); Neutrophils % 65.8 % (37.0-80.0); Platelet Count 278 K/mm3 (142-424); Red Blood Count 3.71 M/mm3 (4.20-5.40); Red Cell Distribution Width 14.7 % (11.5-17.5); White Blood Count 8.9 K/mm3 (4.8-10.8)
[2020-10-04 12:20] LABS: C-Reactive Protein 15.1 mg/L (0-4)
[2020-10-04 13:03] LABS: Erythrocyte Sedimentation Rate 107 mm/hr (0-30)
== END 2020-10-04 11:40 | disposition home or self-care (01) ==
LOC: INF 11:29
PROVIDERS: Visit Provider Orthopaedic Surgery
DX: L03.116 Cellulitis of left lower limb (principal); I96 Gangrene, not elsewhere classified
CPT/HCPCS: 85025; 85651; 86140; G0463

== ENCOUNTER 2020-10-18 15:46 | Inpatient (IN) | payer MEDICARE, MEDICAID, SELFPAY ==
[2020-10-18] VITALS (14 sets, daily range): BP systolic 101–177; BP diastolic 53–73; PULSE 74–91; RESP 16–24; TEMP 37.2; O2SAT 93–99; BMI 42.0; BMI 44.1
--- NOTE | 2020-10-18 16:02 | XR_ITS ---
PROCEDURE: XR CHEST PORTABLE CLINICAL HISTORY: SOA, fever, COVID 19 COMPARISON: CT CHESTWO CT chest wo con from 10/28/2018 CR XR CHEST PORTABLE PICC PLAC from 07/07/2020 CR XR CHEST PORTABLE PICC PLAC from 09/14/2020 CR XR CHEST PORTABLE PICC PLAC from 09/14/2020 FINDINGS: The lungs are clear without infiltrates, suspicious nodules, or pleural effusions. Unremarkable cardiovascular structures. The mediastinum is slightly prominent and may be due to the portable technique. Probably unchanged from 10/28/2018. No acute bony abnormalities. IMPRESSION: No acute findings. Dictated by: Jamison Jj MD 10/18/2020 18:39 Jamison Jj MD in [facility] 10/18/2020 18:39
[2020-10-18 16:56] LABS: Basophils # 0.1 K/mm3 (0-0.2); Basophils % 1.5 % (0.1-2.0); Eosinophils % 0.7 % (0.1-12.0); Hematocrit 36.1 % (37.0-47.0); Hemoglobin 11.7 g/dL (12.2-16.2); Lymphocytes # 1.1 K/mm3 (0.7-4.5); Lymphocytes % 21.1 % (10-50); Mean Corpuscular HGB Conc 32.4 g/dL (31.8-35.4); Mean Corpuscular Hemoglobin 28.2 pg (27.0-31.2); Mean Platelet Volume 8.6 fl (7.4-10.4); Monocytes # 0.6 K/mm3 (0.1-1.0); Monocytes % 11.6 % (1.7-9.3); Neutrophils # 3.5 K/mm3 (1.8-7.8); Neutrophils % 65.1 % (37.0-80.0); Platelet Count 238 K/mm3 (142-424); Red Blood Count 4.15 M/mm3 (4.20-5.40); Red Cell Distribution Width 16.2 % (11.5-17.5); White Blood Count 5.4 K/mm3 (4.8-10.8)
[2020-10-18 17:02] LABS: VBG Base Excess 4.7 mmol/L (-2.4-2.3); VBG HCO3 29.8 mmol/L (23-30); VBG Oxygen Saturation 78.6 % (50-70); VBG PH 7.38 mmol/L (7.31-7.41); VBG PO2 43.6 mmol/L (28-40); VBG Total CO2 31.3 mmol/L (23-27)
[2020-10-18 17:03] LABS: Alanine Aminotransferase 18 U/L (12-78); Albumin Level 3.9 g/dl (3.5-5.0); Albumin/Globulin Ratio 1.2 (1.1-1.8); Alkaline Phosphatase 102 U/L (38-126); Anion Gap 14.1 mEq/L (5-15); Aspartate Amino Transferase 42 U/L (14-36); Bilirubin,Total 0.3 mg/dl (0.2-1.3); Blood Urea Nitrogen 24 mg/dl (7-17); Calcium 9.3 mg/dl (8.4-10.2); Carbon Dioxide 31 mmol/L (22.0-30.0); Chloride 91 mmol/L (98-107); Creatinine Clearance Estimated 45 mL/min (50-200); Estimated Glomerular Filt Rate 36 ml/min (>60); GFR (African American) 44 ML/MIN (>60); Globulin 3.2 g/dL (1.3-3.2); Glucose 131 mg/dl (74-100); Lactate Dehydrogenase 162 U/L (313-618); Potassium 5.1 mmoL/L (3.5-5.1); Sodium 131 mmol/L (136-145); Total Protein,Serum 7.1 g/dl (6.3-8.2)
[2020-10-18 17:05] LABS: VBG PCO2 51.1 mmol/L (35-51)
[2020-10-18 17:22] LABS: Procalcitonin 0.157 ng/mL (0.0-2.0)
--- NOTE | 2020-10-18 17:40 | HMH.EDGENADL ---
ED Disposition Clinical Impression: COVID-19 Respiratory failure Qualifiers: Chronicity: acute on chronic Respiratory failure complication: hypoxia Qualified Code(s): J96.21 - Acute and chronic respiratory failure with hypoxia Disposition: Admitted As Inpatient Condition on Discharge: Fair Referrals: Sameer Patterson MD [Primary Care Provider] - - Critical Care Critical Care Time: No Attestation: On 10/18/20, the high probability of a clinically significant, sudden or life threatening deterioration of the following system(s) required my full and direct attention, intervention and personal management. The time I documented below is in addition to time spent performing reported procedures but includes the following listed in this critical care notation. Medical Decision Making - Medical Records Medical records reviewed: Yes: I reviewed the patient's medical records. - Edgar Inquiry Pt receiving controlled substance: No Vital Signs: 10/18/20 15:47 10/18/20 16:30 10/18/20 16:47 Temperature 99 F Temperature Source Oral Pulse Rate [Radial] 75 74 80 Respiratory Rate 20 18 Blood Pressure [Right Arm] 123/58 L 148/64 H 101/64 L Blood Pressure Mean [Right Arm] 79 92 76 Blood Pressure Source [Right Arm] Automatic Cuff Automatic Cuff Blood Pressure Position [Right Arm] Sitting Supine Supine 02 Sat by Pulse Oximetry 99 99 93 L Oxygen Delivery Method Nasal Cannula Oxygen Flow Rate (LPM) 4 10/18/20 17:30 10/18/20 18:00 10/18/20 18:30 Temperature Temperature Source Pulse Rate [Radial] 78 74 77 Respiratory Rate Blood Pressure [Right Arm] 101/64 L 122/56 L 132/54 L Blood Pressure Mean [Right Arm] 76 78 80 Blood Pressure Source [Right Arm] Blood Pressure Position [Right Arm] Sitting Sitting Sitting 02 Sat by Pulse Oximetry 93 L 95 95 Oxygen Delivery Method Nasal Cannula Nasal Cannula Nasal Cannula Oxygen Flow Rate (LPM) 4 4 4 10/18/20 19:00 10/18/20 19:30 Temperature Temperature Source Pulse Rate [Radial] 81 86 Respiratory Rate 18 Blood Pressure [Right Arm] 132/53 L 123/54 L Blood Pressure Mean [Right Arm] 79 77 Blood Pressure Source [Right Arm] Blood Pressure Position [Right Arm] Sitting Sitting 02 Sat by Pulse Oximetry 97 Oxygen Delivery Method Nasal Cannula Oxygen Flow Rate (LPM) 4 - Lab Data Lab Results 10/18/20 16:02: VBG pH 7.38, VBG pCO2 51.1 H, VBG pO2 43.6 H, VBG HCO3 29.8, VBG Total CO2 31.3 H, VBG O2 Saturation 78.6 H, VBG Base Excess 4.7 H 10/18/20 16:47: WBC 5.4, RBC 4.15 L, Hgb 11.7 L, Hct 36.1 L, MCV 87.0, MCH 28.2, MCHC 32.4, RDW 16.2, Plt Count 238, MPV 8.6, Neut % (Auto) 65.1, Lymph % (Auto) 21.1, [place] % (Auto) 11.6 H, Eos % (Auto) 0.7, Baso % (Auto) 1.5, Neut # (Auto) 3.5, Lymph # (Auto) 1.1, [place] # (Auto) 0.6, Eos # (Auto) 0.0, Baso # (Auto) 0.1 10/18/20 16:47: Sodium 131 L, Potassium 5.1, Chloride 91 L, Carbon Dioxide 31 H, Anion Gap 14.1, BUN 24 H, Creatinine 1.50 H, Estimated Creat Clear 45, Estimated GFR 36 L, Est GFR ( Amer) 44 L, Glucose 131 H, Calcium 9.3, Total Bilirubin 0.3, AST 42 H, ALT 18, Alkaline Phosphatase 102, Lactate Dehydrogenase 162 L, C-Reactive Protein 29.0 H, Total Protein 7.1, Albumin 3.9, Globulin 3.2, Albumin/Globulin Ratio 1.2, Procalcitonin 0.157 10/18/20 16:47: Lactate 1.0 10/18/20 16:47: SARS-CoV-2 IgG Ab (Rapid) Negative, SARS-CoV-2 IgM Ab (Rapid) Negative 10/18/20 18:00: Chlamy pneumoniae PCR Not detected, Adenovirus (PCR) Not detected, B. pertussis DNA (PCR) Not detected, Coronavirus OC43 (PCR) Not detected, Coronavirus HKU1 (PCR) Not detected, Coronavirus 229E (PCR) Not detected, SARS-CoV-2 (PCR) Detected A, Coronavirus NL63 (PCR) Not detected, Human Metapneumovir PCR Not detected, Influenza A (H1) PCR Not detected, Influ A (H1N1/09) PCR Not detected, Influenza A (H3) PCR Not detected, Influenza Type A (PCR) Not detected, Influenza Type B (PCR) Not detected, M. pneumoniae (PCR) Not detected, Parainfluenza 1 (PCR) Not detected
[2020-10-18 17:43] LABS: Coronavirus 19 IgG Antibody Negative (Negative); Coronavirus 19 IgM Antibody Negative (Negative)
[2020-10-18 18:36] LABS: Adenovirus,PCR Not Detected (NotDetected); Bordetella Pertussis Not Detected (NotDetected); Chlamydophila Pneumoniae, PCR Not Detected (NotDetected); Coronavirus 229E Not Detected (NotDetected); Coronavirus NL63 Not Detected (NotDetected); Coronavirus OC43 Not Detected (NotDetected); Coronovirus HKU1,PCR Not Detected (NotDetected); Human Metapneumovirus Not Detected (NotDetected); Influenza A, PCR Not Detected (NotDetected); Influenza AH1, 2009 Not Detected (NotDetected); Influenza AH1, PCR Not Detected (NotDetected); Influenza AH3,PCR Not Detected (NotDetected); Influenza B, PCR Not Detected (NotDetected); Mycoplasma Pneumoniae, PCR Not Detected (NotDetected); Parainfluenza 1, PCR Not Detected (NotDetected); Parainfluenza 2, PCR Not Detected (NotDetected); Parainfluenza 3, PCR Not Detected (NotDetected); Parainfluenza 4, PCR Not Detected (NotDetected); Respiratory Syncytial Virus Not Detected (NotDetected); Rhinovirus/Enterovirus Not Detected (NotDetected)
[2020-10-18 20:21] LABS: Coronavirus 19, PCR Detected (NotDetected)
--- NOTE | 2020-10-18 21:08 | PC.NURSE ---
patient admitted to 264
[2020-10-18 23:07] LABS: POC Glucose,Bedside 311 (70-110)
[2020-10-19] VITALS: BP 130/54; PULSE 80; RESP 20; TEMP 36.6; O2SAT 95
[2020-10-19 04:00] VITALS: BP 105/49; PULSE 74; RESP 18; TEMP 36.6; O2SAT 92
[2020-10-19 04:15] LABS: POC Glucose,Bedside 275 (70-110)
--- NOTE | 2020-10-19 04:39 | PC.NURSE ---
pt has rested well t/o shift, O2 sats on 4L 95-96%, pt turned down to 2L with O2 sats 92-94%, no complaints of SOA or chest pain, no N/V/D, has been incontinent of bowel once and bladder three times this shift
[2020-10-19 06:21] VITALS: BMI 44.0
[2020-10-19 07:41] VITALS: BP 118/52; PULSE 72; RESP 18; TEMP 36.5; O2SAT 93
--- NOTE | 2020-10-19 08:56 | P.CONPHA_ITS ---
[facility] Pharmacy VTE Monitoring - Patient Demographics Admission date: 10/18/20 Report Date: 10/19/20 Time: 08:57 Allergies/Adverse Reactions: Patient Allergies protamine Allergy (Verified 10/09/20 16:42) Height: 1.75 m Weight: 135 kg Patient Problems: Current Active Problems COVID-19 (Acute) Respiratory failure (Acute) - VTE Risk Labs: VTE Related Lab Results Hgb 11.7 g/dL (12.2-16.2) L 10/18/20 16:47 Hct 36.1 % (37.0-47.0) L 10/18/20 16:47 Plt Count 238 K/mm3 (142-424) 10/18/20 16:47 BUN 24 mg/dl (7-17) H 10/18/20 16:47 Creatinine 1.50 mg/dl (0.52-1.04) H 10/18/20 16:47 Estimated Creat Clear 45 mL/min (50-200) 10/18/20 16:47 Was VTE Risk Assessment Performed: Yes VTE Score: 10 VTE Risk Level: Moderate Risk Clinical Trial Participant: No - Prophylaxis VTE Prophylaxis Ordered?: Yes Types of VTE Prophylaxis: TEDS Knee High Location of Applied Device: Bilateral Lower Extremeties Pharmacologic Type: Enoxaparin
--- NOTE | 2020-10-19 09:11 | PC.NURSE ---
PATIENT BEGAN CRYING TO THIS RN STATING THAT SHE NEEDS HER SILVER CREAM FOR LEFT LEG. THIS RN LOOKED OVER PATIENT'S HOME MEDICATION LIST AND THERE WAS NO CREAM LISTED. THIS RN PHONED PHARMACY AND SPOKE WITH CEZAR. PHARMACY WILL LOOK INTO IT.
--- NOTE | 2020-10-19 09:53 | HMH.HP ---
*Admission Date: 10/18/20 *Chief complaint: SOA *History of present illness: 54-year-old female transferred to emergency department from nursing care facility for further evaluation of fevers. Patient states she has been sick for the past 2 days with fevers, muscle aches, cold chills, and cough. Diagnosed with COVID-19 today. Denies any chest pain. Reports difficulty breathing, worse than baseline. States she usually wears 2 L of oxygen nasal cannula at night, but is now wearing it throughout the day. She does report an episode of loose stools earlier in the day. Denies any abdominal pain. No other symptoms at this time. 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 The emergency department oxygen saturations were 93% on 4 L nasal cannula. White blood cell count 5.4, hematocrit 11.7, hemoglobin 11.7, Sodium 131, potassium 5.1 BUN 24 and creatinine 1.5 In the emergency department she received Lortab, steroids, and an IV fluids 10/18/20 CXR: FINDINGS: The lungs are clear without infiltrates, suspicious nodules, or pleural effusions. Unremarkable cardiovascular structures. The mediastinum is slightly prominent and may be due to the portable technique. Probably unchanged from 10/28/2018. No acute bony abnormalities. IMPRESSION: No acute findings. Dictated by: Parviz This morning 54-year-old female patient is sitting up in bed, respirations not labored. Oxygen saturations 94% on 2 L per nasal cannula. She reports she is feeling better less shortness of breath. She denies any abdominal pain, headache, or chest pain. Explained to patient she will need to stay inpatient in hospital for several days due to condition, she believes she would be in the hospital for 15 to 20 days assured her as long as she is progressing along expectedly she will be out and hopefully in several days. BUN 21, Creatinine 1.1, Sodium 127. [facility] History Medical History: Reports:: Anxiety, Chronic Obstructive Pulmonary Disease (COPD), Coronary Artery Disease, Cerebrovascular Accident, Depression, Diabetes Mellitus Type 2, Hyperlipidemia, Hypertension, Peripheral Artery Disease, Peripheral Vascular Disease Denies:: Cancer, Diabetes Mellitus Type 1, Internal Pacemaker, MRSA, Seizures *Have you ever received a pneumonia vaccine?: No *Have you received a flu vaccine this season?: No Other Medical History: Reports: Cataracts, Hypothyroidism, Thyroid Disease. Denies: Blood Transfusion Reaction Laterality Cases: Bilateral: Other Other Surgeries: Yes: Cardiac Catheterization, Cardiac Surgery, Colonoscopy, Coronary Stent, Thyroidectomy, Tubal Ligation, Other. No: Pacemaker Amputation: Yes (Toe left big, L BELOW THE KNEE) Fractures: No - *Social History Smoking Status: Former smoker Tobacco Type: cigarettes # Packs/Day (cigarettes): 1 #Yrs smoked (if former smoker): 30 Alcohol Intake: never Substance Use Type: denies use *Occupational Status:: disabled Housing: senior living Household Members: caregiver *Travel in the last 8 weeks: None - Psychiatric History Pschychiatric History:: Reports:: Anxiety, Depression Family Hx:: Cancer, Diabetes, Heart Attack, Hyperlipidemia, Hypertension Review of Systems - Review of Systems Review of systems:: pertinent systems reviewed and negative unless documented below - Constitutional Reports body ache(s), Reports fatigue, Reports fever(s), Reports lack of energy - Eyes Denies blind spots, Denies blurry vision - ENT Denies abnormal hearing - *Cardiovascular Reports shortness of breath, Denies chest pain, Denies rapid, pounding, or irregular heartbeat - *Respiratory Reports cough, Reports shortness of breath - *Gastrointestinal Reports loose stools, Denies abdominal pain - *Musculoskeletal Denies joint pain, Denies numbness - Integumentary/Breasts Reports non-healing lesions, Reports wounds Comments: L BKA w/ wound - *Neurologic Reports headache(s), Denies seizure
[2020-10-19 10:39] LABS: Chloride 92 mmol/L (98-107)
[2020-10-19 10:40] LABS: Potassium 5.2 mmoL/L (3.5-5.1); Sodium 127 mmol/L (136-145)
[2020-10-19 10:42] LABS: Alanine Aminotransferase 18 U/L (12-78); Alkaline Phosphatase 94 U/L (38-126); Anion Gap 14.2 mEq/L (5-15); Aspartate Amino Transferase 37 U/L (14-36); Bilirubin,Total 0.2 mg/dl (0.2-1.3); Blood Urea Nitrogen 28 mg/dl (7-17); Carbon Dioxide 26 mmol/L (22.0-30.0); Creatinine Clearance Estimated 59 mL/min (50-200); Estimated Glomerular Filt Rate 52 ml/min (>60); GFR (African American) 63 ML/MIN (>60); Phosphorous 5.2 mg/dl (2.5-4.5)
[2020-10-19 10:43] LABS: Albumin Level 3.4 g/dl (3.5-5.0); Albumin/Globulin Ratio 1.2 (1.1-1.8); Calcium 8.9 mg/dl (8.4-10.2); Globulin 2.8 g/dL (1.3-3.2); Glucose 235 mg/dl (74-100); Magnesium 1.6 mg/dl (1.6-2.3); Total Protein,Serum 6.2 g/dl (6.3-8.2)
[2020-10-19 11:10] LABS: POC Glucose,Bedside 214 (70-110)
--- NOTE | 2020-10-19 11:24 | SW/DCPLANNER ---
Addendum entered by Gloria Castrejon 10/20/20 10:48: Dr Patterson has stated that repeat chest x ray is better and patient can discharge today. Nursing staff has informed patient of plan of going to [facility] and patient is agreeable with plan. Once discharge summary is in I will fax to [facility] and to Ольга at [facility] ([phone]) and I have provided patients nurse ([place]) with number for report ([phone]). I will notify [facility] once discharge order is in for this patient. Addendum entered by Gloria Castrejon 10/20/20 09:55: Tootie with [facility] has stated their van service will be taking patients to [facility] today. I have relayed this to Dr Patterson. Dr Patterson has stated that he will review repeat chest x ray once read then make a decision regarding discharge today. I have notified [facility]. Patient information has been faxed to [facility]. Addendum entered by Gloria Castrejon 10/19/20 11:33: CORRECTION: patient is SNF level of care at [facility] per [facility]. [facility] has also stated that [facility] can take weekend admissions. I am currently waiting to hear back from [facility] regarding transportation to facility. Original Note: This patient currently resides at [facility]. I have spoke with T[facility] regarding this patient and she has stated that patient is ICF level of care. I have informed T[facility] that patient is COVID positive. [facility] has stated that patient may need to discharge to their sister facility ([facility] in [facility]). I have informed [facility] that transportation will be an issue due to distance from our facility. [facility]ie stated that she will speak with her staff in morning meeting to see if patient would be able to transport via their van. I am currently waiting to hear back regarding this answer. I have also informed [facility] that I need to know if this patient can discharge over the weekend if medically stable and I am also waiting to hear back from her on this question. I will continue to follow up with [facility] and patient regarding discharge plans. Discharge date is unknown at this time.
[2020-10-19 11:30] VITALS: BP 137/51; PULSE 70; RESP 20; TEMP 36.5; O2SAT 95
[2020-10-19 15:42] VITALS: BP 166/71; PULSE 71; RESP 18; TEMP 36.7; O2SAT 93
--- NOTE | 2020-10-19 15:46 | HMH.PTWOUND ---
Rehab Inpt Wound Evaluation Rehab IP Wound Evaluation Start: 10/19/20 14:05 Freq: ONCE Status: Active Protocol: Document 10/19/20 15:36 [email or web address] (Rec: 10/19/20 15:46 [email or web address] [id number]) Rehab PT Wound Assessment Patient Status Premedicated Prior to Dressing Change No Subjective Subjective This is the initial IP PT wound evaluation for Vicky Squires. Pt is a 54 y/o female admitted to [facility] fro COVID + related S&S. Pt was referred to Wound care for recent L BKA . Pt has been seen by Dr. Gutiérrez for post BKA follow up and has received wound care at [facility] home. Wound Left Lower Distal Leg Wound Type Incision Wound Length (cm) 6.0 Wound Width (cm) 2.0 Percentage of Eschar (Black) (%) 100 Wound Margins Description Well Defined Surrounding Tissue Appearance [place] Wound Drainage Description None Drainage Amount None Drainage Odor No Odor Dressing Status Dry & Intact Primary Dressing Silver Dressing Comment silver polymem Wound Secondary Dressing Type Non-Adherent Gauze Pad,Gauze Roll/Wrap Comment kerlix/coban Wound Debridement Amount of Tissue None Removed Dressing Change Date 10/19/20 Left Lower Leg Wound Type Incision Is This a Chronic Wound Yes Wound Length (cm) 9.0 Wound Width (cm) 2.0 Wound Bed Appearance Eschar Percentage of Eschar (Black) (%) 100 Wound Margins Description Well Defined Surrounding Tissue Appearance [place] Surrounding Tissue Temperature Warm Wound Drainage Description None Drainage Amount None Drainage Odor No Odor Dressing Status Dry & Intact Primary Dressing Silver Dressing Comment polymem silver Wound Secondary Dressing Type Non-Adherent Gauze Pad,Gauze Roll/Wrap Comment kerlix/coban Wound Debridement Amount of Tissue None Removed Dressing Change Date 10/19/20 Plan/Recommendation Comment Consult w/ Ortho MD Dr. Gutiérrez, both MD and wound care feel debridement of escar /scab would open wound deeply
[2020-10-19 16:39] LABS: POC Glucose,Bedside 237 (70-110)
--- NOTE | 2020-10-19 17:16 | PC.NURSE ---
pt changed and full linen done at this time.
--- NOTE | 2020-10-19 17:38 | PC.NURSE ---
PATIENT A&O X4, LUNGS ARE DIMINISHED AT THE BASES WITH WHEEZING HEARD THROUGHOUT. PULSES EQUAL. DR. MARES AND JACE PT WERE AT BEDSIDE TO EXAMINE PATIENT'S STUMP. PER JACE, THIS RN PLACED SILVER POLYMER ON SCABBED AREA, WRAP IN KERLIX, WRAP IN LINUS BANDAGE AND PLACE COMPRESSION STOCKING OVER. PATIENT TOLERATED WELL. PER JACE SILVER POLYMER CAN STAY ON FOR UP TO 3 DAYS. PATIENT HAD SEVERAL INCONTINENT UNMEASURED URINE FILLED BRIEFS. LINENS CHANGED TWICE. PATIENT HAD SEVERAL MOMENTS OF CRYING DUE TO PAIN. THIS RN PHONED MD OFFICE AND LEFT A MESSAGE FOR PATIENT'S HOME MEDICATION TO BE RESTARTED. NO CONCERNS AT THIS TIME.
--- NOTE | 2020-10-19 18:10 | PC.WOUNDNOTE ---
Wound Location: Length:9 IN Width:2IN Inflammation/swelling Y/N:Y Pain and/or tenderness Y/N:Y Exudate: Serosanguinous Sanguinous Serosanguinous Seropurulent Purulent Color: SCAB NOTED WITH PINK HEALING TISSUE SURROUNDING Consistency: Thick Amount: None Odor Y/N:N LEFT STUMP POST OP AMPUTATION, SCAB NOTED, PINK TISSUE SURROUNDING, NO DRAINAGE.
--- NOTE | 2020-10-19 18:13 | PC.WOUNDNOTE ---
Wound Location: LEFT STUMP Length:6 IN Width:2 IN Inflammation/swelling Y/N:Y Pain and/or tenderness Y/N:Y Exudate: NONE Color: Consistency: Thick Amount: None Odor Y/N:Y LEFT STUMP POST OP AMPUTATION, SCAB NOTED SURROUNDED BY PINK TISSUE, NO DRAINAGE NOTED.
[2020-10-19 20:00] VITALS: BP 140/55; PULSE 69; RESP 20; TEMP 36.7; O2SAT 92
[2020-10-20] VITALS: BP 137/64; PULSE 65; RESP 20; TEMP 36.7; O2SAT 93
--- NOTE | 2020-10-20 03:25 | PC.NURSE ---
patient has rested throughout shift. breath sounds diminished throughout all kenney. o2 sats greater than 92% on r/a while awake. will desat to 88% on r/a while sleeping. o2 at 2 l nc applied while sleeping with sats greater than 94%. patient frequently takes oxygen off c/o that her nose is dry and hurting, humidification applied. patient incontinent of bowel this shift. dressing to left bka. patient c/o pain at bedtime, treated with 1 norco. patient questioned why she wasn't getting home meds, stated she'll ask in am
[2020-10-20 04:00] VITALS: BP 116/54; PULSE 63; RESP 18; TEMP 36.6; O2SAT 95
[2020-10-20 05:48] LABS: Basophils % 0.5 % (0.1-2.0); Hematocrit 32.8 % (37.0-47.0); Hemoglobin 10.8 g/dL (12.2-16.2); Lymphocytes # 1.4 K/mm3 (0.7-4.5); Lymphocytes % 36.5 % (10-50); Mean Corpuscular Hemoglobin 28.2 pg (27.0-31.2); Mean Corpuscular Volume 85.5 fl (81-99); Mean Platelet Volume 9.4 fl (7.4-10.4); Monocytes # 0.5 K/mm3 (0.1-1.0); Neutrophils # 1.8 K/mm3 (1.8-7.8); Platelet Count 240 K/mm3 (142-424); Red Blood Count 3.84 M/mm3 (4.20-5.40); Red Cell Distribution Width 15.8 % (11.5-17.5); White Blood Count 3.7 K/mm3 (4.8-10.8)
[2020-10-20 06:26] LABS: Chloride 93 mmol/L (98-107); Potassium 4.7 mmoL/L (3.5-5.1); Sodium 128 mmol/L (136-145)
[2020-10-20 06:27] VITALS: BMI 43.7
[2020-10-20 06:29] LABS: Anion Gap 9.7 mEq/L (5-15); Blood Urea Nitrogen 25 mg/dl (7-17); Carbon Dioxide 30 mmol/L (22.0-30.0); Creatinine Clearance Estimated 65 mL/min (50-200); Estimated Glomerular Filt Rate 58 ml/min (>60); GFR (African American) 70 ML/MIN (>60)
[2020-10-20 06:30] LABS: Calcium 8.8 mg/dl (8.4-10.2); Glucose 172 mg/dl (74-100)
[2020-10-20 08:00] VITALS: BP 109/57; PULSE 64; RESP 22; TEMP 36.7; O2SAT 93; O2SAT 94
--- NOTE | 2020-10-20 08:42 | XR_ITS ---
PROCEDURE: XR CHEST PORTABLE CLINICAL HISTORY: sob Covid19 positive COMPARISON: CT CHESTWO CT chest wo con from 10/28/2018 CR XR CHEST PORTABLE PICC PLAC from 09/14/2020 CR XR CHEST PORTABLE PICC PLAC from 09/14/2020 CR XR CHEST PORTABLE from 10/18/2020 FINDINGS: The cardiomediastinal silhouette and pulmonary vascularity are within normal limits. Three exams are performed. Initially there was poor inspiration with increased density in the right lung base and the x-ray was asked to be repeated. On the repeat exams the inspiratory effort was not significantly changed however the previously noted increased density in the right lung base with less apparent consistent with vascular crowding. No acute bony abnormalities. IMPRESSION: No change with no acute finding. Dictated by: Jamison Jj MD 10/20/2020 10:04 Jamison Jj MD in [facility] 10/20/2020 10:04
[2020-10-20 11:08] VITALS: BMI 43.7
[2020-10-20 11:55] VITALS: BP 124/58; PULSE 69; RESP 20; TEMP 36.7; O2SAT 91
--- NOTE | 2020-10-20 12:01 | HMH.DCSUM ---
General - General Admission date:: 10/18/20 Discharge date: 10/20/20 HPI HPI: 54-year-old female transferred to emergency department from nursing care facility for further evaluation of fevers. Patient states she has been sick for the past 2 days with fevers, muscle aches, cold chills, and cough. Diagnosed with COVID-19 today. Denies any chest pain. Reports difficulty breathing, worse than baseline. States she usually wears 2 L of oxygen nasal cannula at night, but is now wearing it throughout the day. She does report an episode of loose stools earlier in the day. Denies any abdominal pain. No other symptoms at this time. 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 The emergency department oxygen saturations were 93% on 4 L nasal cannula. White blood cell count 5.4, hematocrit 11.7, hemoglobin 11.7, Sodium 131, potassium 5.1 BUN 24 and creatinine 1.5 In the emergency department she received Lortab, steroids, and an IV fluids 10/18/20 CXR: FINDINGS: The lungs are clear without infiltrates, suspicious nodules, or pleural effusions. Unremarkable cardiovascular structures. The mediastinum is slightly prominent and may be due to the portable technique. Probably unchanged from 10/28/2018. No acute bony abnormalities. IMPRESSION: No acute findings. Dictated by: Parviz This morning 54-year-old female patient is sitting up in bed, respirations not labored. Oxygen saturations 94% on 2 L per nasal cannula. She reports she is feeling better less shortness of breath. She denies any abdominal pain, headache, or chest pain. Explained to patient she will need to stay inpatient in hospital for several days due to condition, she believes she would be in the hospital for 15 to 20 days assured her as long as she is progressing along expectedly she will be out and hopefully in several days. BUN 21, Creatinine 1.1, Sodium 127. Hospital Course Hospital Course: pt has did better with improvement with sx and dec fever - she has needed o2 at rest but has used same as before at night - labs stable and radha diet - cxr is stable - will be going to covid unit Objective Vital signs: Temp Pulse Resp BP Pulse Ox 98.1 F 69 20 124/58 L 91 L 10/20/20 11:55 10/20/20 11:55 10/20/20 11:55 10/20/20 11:55 10/20/20 11:55 no acute distress, obese - *Routine HEENT Exam Head: Present: normocephalic Eye: Present: EOMI, PERRL ENT: Present: mucous membranes dry - *Routine Neck Exam Absent: JVD - *Routine Respiratory Exam Present: decreased breath sounds, prolonged expiratory phase - *Routine Cardiovascular Exam Present: RRR, murmur - *Routine Abdominal Exam Present: soft - *Routine Extremities Exam Present: amputation - *Routine Skin Exam Present: intact - *Routine Neurological Exam Present: alert, CN II-XII intact - Routine Psychiatric Exam Present: anxious Results Labs on day of discharge: Labs from last 24 hours 10/20/20 10/20/20 10/19/20 04:40 04:40 16:07 WBC 3.7 L D RBC 3.84 L Hgb 10.8 L Hct 32.8 L MCV 85.5 MCH 28.2 MCHC 33.0 RDW 15.8 Plt Count 240 MPV 9.4 Neut % (Auto) 49.0 Lymph % (Auto) 36.5 Ashley % (Auto) 14.0 H Eos % (Auto) 0.0 L Baso % (Auto) 0.5 Neut # (Auto) 1.8 Lymph # (Auto) 1.4 Ashley # (Auto) 0.5 Eos # (Auto) 0.0 Baso # (Auto) 0.0 Sodium 128 L Potassium 4.7 Chloride 93 L Carbon Dioxide 30 Anion Gap 9.7 BUN 25 H Creatinine 1.00 Estimated Creat Clear 65 Estimated GFR 58 L Est GFR ( Amer) 70 Glucose 172 H D POC Glucose 237 H Calcium 8.8 DS: Diagnosis - Discharge Diagnosis (1) BKA stump complication Status: Acute (2) Left-sided weakness Status: Acute (3) COVID-19 Status: Acute (4) Respiratory failure Status: Acute (5) COPD with exacerbation Status: Acute (6) Hypoxia Status: Acu
[2020-10-20 15:12] LABS: POC Glucose,Bedside 165 (70-110)
[2020-10-20 15:12] LABS: POC Glucose,Bedside 289 (70-110)
[2020-10-20 15:12] LABS: POC Glucose,Bedside 215 (70-110)
== END 2020-10-20 15:30 | DRG 177 ==
LOC: ER 20:19 → ICU 10-19 06:23
PROVIDERS: Nurse Practitioner Family; Admitting Provider Emergency Medicine; Emergency Provider Emergency Medicine; PCP Emergency Medicine; Visit Provider Emergency Medicine
DX: U07.1 COVID-19 (principal); J96.21 Acute and chronic respiratory failure with hypoxia; Z68.41 Body mass index [BMI] 40.0-44.9, adult; T87.44 Infection of amputation stump, left lower extremity; I69.351 Hemiplegia and hemiparesis following cerebral infarction affecting right dominant side; E11.40 Type 2 diabetes mellitus with diabetic neuropathy, unspecified; J44.9 Chronic obstructive pulmonary disease, unspecified; E66.9 Obesity, unspecified; Z79.4 Long term (current) use of insulin; Z79.899 Other long term (current) drug therapy; Z88.8 Allergy status to other drugs, medicaments and biological substances; Z79.01 Long term (current) use of anticoagulants; Z79.82 Long term (current) use of aspirin; E03.9 Hypothyroidism, unspecified
CPT/HCPCS: 71045; 80048; 80053; 82803; 82962; 83605; 83615; 83735; 84100; 84145; 85025; 86140; 86328; 87581; 87633; 87798; 94761; 96374; 99285; J2405

== ENCOUNTER → 2020-12-04 12:21 | Outpatient (CLI) | payer MEDICARE, MEDICAID, SELFPAY ==
--- NOTE | 2020-12-04 12:26 | XR_ITS ---
PROCEDURE: XR FEMUR RT 2V CLINICAL INDICATION: Edema Pain COMPARISON: No exams were available for comparison FINDINGS: No fracture or dislocation. No lytic or blastic change. There is normal mineralization. Mild osteoarthritic change at the knee and hip. Diffuse vascular calcification. Other findings:None. IMPRESSION: No acute findings. Dictated by: Jamison Jj MD 12/04/2020 17:32 Jamison Jj MD in [facility] 12/04/2020 17:32
--- NOTE | 2020-12-04 12:26 | XR_ITS ---
PROCEDURE: XR KNEE LT 3V CLINICAL INDICATION: s/p LT BKA Follow-up BKA COMPARISON: CR XR TIBIA FIBULA LT 2V from 09/21/2020 FINDINGS: Status post below the knee amputation. There remains good alignment. Arterial stents are present in the SFA and popliteal region. Bony margins have an unremarkable appearance at the amputation site. IMPRESSION: No change status post below the knee amputation Dictated by: Jamison Jj MD 12/04/2020 17:27 Jamison Jj MD in [facility] 12/04/2020 17:27
--- NOTE | 2020-12-04 12:26 | XR_ITS ---
PROCEDURE: XR KNEE RT 3V CLINICAL INDICATION: Edema COMPARISON: CR XR FEMUR RT 2V from 12/04/2020 FINDINGS: Mild osteoarthritic change. Small suprapatellar effusion. Diffuse vascular calcification. No fracture or dislocation. No lytic or blastic change. IMPRESSION: Small suprapatellar effusion with mild osteoarthritic change Dictated by: Jamison Jj MD 12/04/2020 17:30 Jamison Jj MD in [facility] 12/04/2020 17:30
--- NOTE | 2020-12-04 12:26 | XR_ITS ---
PROCEDURE: XR TIBIA FIBULA RT 2V CLINICAL INDICATION: Edema Pain and swelling COMPARISON: No exams were available for comparison FINDINGS: No fracture or dislocation. No lytic or blastic change. Mild osteopenia. Generalized vascular calcification. IMPRESSION: No acute findings. Dictated by: Jamison Jj MD 12/04/2020 17:31 Jamison Jj MD in [facility] 12/04/2020 17:31
[2020-12-04 15:16] LABS: Basophils # 0.1 K/mm3 (0-0.2); Basophils % 0.8 % (0.1-2.0); Eosinophils # 0.5 K/mm3 (0.0-0.4); Eosinophils % 4.4 % (0.1-12.0); Hematocrit 36.5 % (37.0-47.0); Hemoglobin 11.7 g/dL (12.2-16.2); Lymphocytes # 2.5 K/mm3 (0.7-4.5); Lymphocytes % 23.4 % (10-50); Mean Corpuscular HGB Conc 31.9 g/dL (31.8-35.4); Mean Corpuscular Hemoglobin 28.9 pg (27.0-31.2); Mean Corpuscular Volume 90.6 fl (81-99); Mean Platelet Volume 8.8 fl (7.4-10.4); Monocytes # 0.6 K/mm3 (0.1-1.0); Monocytes % 5.5 % (1.7-9.3); Neutrophils # 7.1 K/mm3 (1.8-7.8); Neutrophils % 65.9 % (37.0-80.0); Platelet Count 363 K/mm3 (142-424); Red Blood Count 4.03 M/mm3 (4.20-5.40); Red Cell Distribution Width 17.5 % (11.5-17.5); White Blood Count 10.7 K/mm3 (4.8-10.8)
[2020-12-04 16:07] LABS: C-Reactive Protein 3.8 mg/L (0-4)
[2020-12-04 16:30] LABS: Erythrocyte Sedimentation Rate 96 mm/hr (0-30)
== END ==
PROVIDERS: PCP Physician Assistant; Visit Provider Orthopaedic Surgery
DX: R60.0 Localized edema (principal); S88.119A Complete traumatic amputation at level between knee and ankle, unspecified lower leg, initial encounter; Z51.89 Encounter for other specified aftercare
CPT/HCPCS: 36415; 73552; 73562; 73590; 85025; 85651; 86140

== ENCOUNTER → 2020-12-04 14:27 | Outpatient (CLI) | payer MEDICARE, MEDICAID, SELFPAY | PROVIDERS: Visit Provider Orthopaedic Surgery | DX: S88.119A Complete traumatic amputation at level between knee and ankle, unspecified lower leg, initial encounter (principal) | CPT/HCPCS: 36415; 85025; 85651; 86140 ==

== ENCOUNTER 2020-12-18 13:00 | Outpatient (RCR) | payer MEDICARE, MEDICAID, SELFPAY ==
--- NOTE | 2020-12-04 14:25 | HMH.PTOPWND ---
Rehab Outpt Wound Evaluation Rehab OP Wound Evaluation Start: 12/04/20 14:15 Freq: Status: Active Protocol: Document 12/04/20 14:15 LAURA (Rec: 12/04/20 14:24 PHORNE [id number]) Electronically Signed By Home Drew, PT 12/04/20 14:15 Subjective/History History History Pt is 54 yowf who presents with L BKA distal stump wounds for several mos after BKA performed ~ 4 mos ago. She reports she had x-rays performed which looks good. She report no c/o pain currently. She has PMH of DM- II, CVA, HTN, HL, COPD, PAD, PVD. Subjective Subjective She reports no pain currently. Wound Eval Wound Left Lower Lateral Leg Wound Type Incision Wound Length (cm) 1.5 Wound Width (cm) 5.0 Wound Bed Appearance Eschar Wound Margins Description Well Defined Drainage Amount None Dressing Change Patient Tolerance Tolerated Well Left Lower Medial Leg Wound Type Incision Is This a Chronic Wound Yes Wound Length (cm) 2.4 Wound Width (cm) 6.7 Wound Depth (cm) 0.7 Wound Bed Appearance Yellow Percentage Granulated (%) 10 Percentage of Slough (%) 90 Wound Margins Description Well Defined Drainage Description Serous Drainage Amount Small Primary Dressing Silver Dressing Comment tegaderm Ag mesh, Opticell Ag Wound Secondary Dressing Type Composite Comment optifoam gentle Wound Debridement Method Sharps,Forceps,Gauze Wound Debridement Amount of Tissue Moderate Removed Dressing Change Patient Tolerance Tolerated Well Wound Problems/Impairments Impairments Problems/Impairmments Impaired Range of Motion, Impaired Strength,Impaired Walking,Impaired Standing, Increased Edema,Wound Care Needs,Impaired Self Care/Self Management Prognosis Rehab Potential Fair Clinical Impression Consistent with Diagnosis Yes Short Term Goals Number of Weeks 4 Decrease Wound Area Yes: by 25% Nutritional Services Director Goals Number of Weeks 8 Decrease Edema Yes Decrease Wound Area Yes: by 75% Increase Red Granulation Tissue % Yes: by 100% Outpatient Therapy Plan of Car
== END 2020-12-18 13:05 | disposition home or self-care (01) ==
LOC: PT 13:00
PROVIDERS: PCP Nurse Practitioner Family; Visit Provider Orthopaedic Surgery
DX: S88.119D Complete traumatic amputation at level between knee and ankle, unspecified lower leg, subsequent encounter (principal); M25.562 Pain in left knee; Z89.512 Acquired absence of left leg below knee; Z51.89 Encounter for other specified aftercare
CPT/HCPCS: 97162; 97597; 97760

== ENCOUNTER → 2021-01-11 10:49 | Outpatient (CLI) | payer MEDICARE, MEDICAID, SELFPAY ==
[2021-01-11 11:17] LABS: Basophils # 0.1 K/mm3 (0-0.2); Basophils % 0.6 % (0.1-2.0); Eosinophils # 0.3 K/mm3 (0.0-0.4); Eosinophils % 2.9 % (0.1-12.0); Hemoglobin 12.2 g/dL (12.2-16.2); Lymphocytes # 2.1 K/mm3 (0.7-4.5); Lymphocytes % 23.1 % (10-50); Mean Corpuscular HGB Conc 31.4 g/dL (31.8-35.4); Mean Corpuscular Hemoglobin 28.5 pg (27.0-31.2); Mean Corpuscular Volume 90.8 fl (81-99); Mean Platelet Volume 8.6 fl (7.4-10.4); Monocytes # 0.5 K/mm3 (0.1-1.0); Monocytes % 5.3 % (1.7-9.3); Neutrophils # 6.2 K/mm3 (1.8-7.8); Platelet Count 352 K/mm3 (142-424); Red Cell Distribution Width 15.8 % (11.5-17.5); White Blood Count 9.2 K/mm3 (4.8-10.8)
[2021-01-11 11:24] LABS: Chloride 100 mmol/L (98-107)
[2021-01-11 11:25] LABS: Sodium 140 mmol/L (136-145)
[2021-01-11 11:27] LABS: Blood Urea Nitrogen 16 mg/dl (7-17); Estimated Glomerular Filt Rate 74 ml/min (>60); GFR (African American) 90 ML/MIN (>60)
[2021-01-11 11:28] LABS: Carbon Dioxide 34 mmol/L (22.0-30.0); Glucose 253 mg/dl (74-100)
[2021-01-11 11:33] LABS: C-Reactive Protein 9.7 mg/L (0-4)
[2021-01-11 11:46] LABS: Erythrocyte Sedimentation Rate 84 mm/hr (0-30)
[2021-01-11 11:59] LABS: Coronavirus 19 IgG Antibody Positive (Negative)
[2021-01-11 12:00] LABS: Coronavirus 19 IgM Antibody Positive (Negative)
== END ==
PROVIDERS: Visit Provider Orthopaedic Surgery
DX: S88.119A Complete traumatic amputation at level between knee and ankle, unspecified lower leg, initial encounter; Z01.818 Encounter for other preprocedural examination; L08.9 Local infection of the skin and subcutaneous tissue, unspecified; T14.8XXA Other injury of unspecified body region, initial encounter; E11.65 Type 2 diabetes mellitus with hyperglycemia
CPT/HCPCS: 36415; 80048; 85025; 85651; 86140; 86328

== ENCOUNTER 2021-01-11 11:05 | Day surgery (SDC) | payer MEDICARE, MEDICAID, SELFPAY ==
[2021-01-10 09:43] VITALS: BMI 41.3
[2021-01-11] VITALS (10 sets, daily range): BP systolic 146–166; BP diastolic 67–93; PULSE 76–84; RESP 14–18; TEMP 36.1–43; O2SAT 92–97
--- NOTE | 2021-01-11 12:06 | SUR.PREOP ---
Notified Dr. Gutiérrez of positive IGM covid antibody. Patient had covid on 10/18/2020, this is within the 90 day window so no nasal swab is necessary per protocol
--- NOTE | 2021-01-11 12:41 | HMH.ANESCL ---
[facility] Anesthesia Checklist - Patient Identification Patient Identification: Verbal (Name & ) - Structural Data Admitted From: Home Planned Operative Procedure/s: Incision drainage of wood on lefr leg stamp Consent for Planned Operative Procedure(s) Verified: Yes Verified Documents: Surgical Consent - NPO Status Verified Time NPO: 00:00 - Chart Verification Results Verified: CBC, BMP - Additional verifications Fingerstick Blood Glucose: 212 Anesthesia Reactions: No Hx Blood Transfusions: No Blood Transfusion Reaction: No - Cardiovascular Assessment Heart Sounds: S1 & S2 Pulse Rhythm: Regular - Respiratory Assessment clear to Auscultation Breath Sounds: Clear, Bronchial - Airway Assessment C-Spine Mobility Assessed: Yes TMJ Mobility Assessed: Yes Dentition: Dentures-poor fitting - Neurological Assessment Level of Consciousness: Awake - Anesthesia Plan Anesthesia Risk discussed: Yes ASA Class: II Anesthesia Type: General [facility] History Medical History: Reports:: Anxiety, Chronic Obstructive Pulmonary Disease (COPD), Coronary Artery Disease, Cerebrovascular Accident, Depression, Diabetes Mellitus Type 2, Hyperlipidemia, Hypertension, Peripheral Artery Disease, Peripheral Vascular Disease Denies:: Cancer, Diabetes Mellitus Type 1, Internal Pacemaker, MRSA, Seizures *Have you ever received a pneumonia vaccine?: Yes *Have you received a flu vaccine this season?: Yes Other Medical History: Reports: Cataracts, Hypothyroidism, Thyroid Disease. Denies: Blood Transfusion Reaction Anesthesia experience/problems:: none Laterality Cases: Bilateral: Other Other Surgeries: Yes: Cardiac Catheterization, Cardiac Surgery, Colonoscopy, Coronary Stent, Thyroidectomy, Tubal Ligation, Other. No: Pacemaker Amputation: Yes (Toe left big, L BELOW THE KNEE) Fractures: No - *Social History Last grade of school completed: GED Smoking Status: Current every day smoker Tobacco Type: e-cigarettes # Packs/Day (cigarettes): 1 #Yrs smoked (if former smoker): 30 Alcohol Intake: never Substance Use Type: denies use *Occupational Status:: disabled Housing: house Household Members: family *Travel in the last 8 weeks: None - Psychiatric History Pschychiatric History:: Reports:: Anxiety, Depression Family Hx:: Cancer, Coronary Artery Disease, Heart Attack, Hyperlipidemia, Hypertension
--- NOTE | 2021-01-11 14:42 | HMH.ANESI ---
[facility] Anesthesia Record Part I Intake, IV Amount: 1,000 Estimated blood loss (mL): 5 Urine output (mL): 0 Blood Pressure: 166/93 SaO2: 92 Pulse Rate: 83 Respiratory Rate: 16 Temperature: 98.1 F Patient is:: Drowsy, Stable Stable to PACU at:: 14:35
[2021-01-11 15:00] LABS: POC Glucose,Bedside 215 (70-110)
--- NOTE | 2021-01-11 15:34 | HMH.OPNOTE ---
Date of procedure: 01/11/21 Pre-op Diagnosis:: 1) s/p L BKA 08/17/2020 2) impaired post-operative wound healing 3) superficial wound dehiscence Post-op Diagnosis:: 1) s/p L BKA 08/17/2020 2) impaired post-operative wound healing 3) superficial wound dehiscence Procedure performed:: irrigation and debridement with secondary wound closure L BKA wound Surgeon:: Ilana Gutiérrez MD Manufacturing Test Technician(s):: Yasmin Ayala ICE CREAM SCOOPER:: Yosvany Rao Anesthesia: LMA Estimated blood loss (mL): 25 Clinical Note:: 55yo F s/p L BKA 08/17/2020. The patient has demonstrated impaired wound healing with mild dehiscence of the medial wound since surgery. She has been at [facility] since surgery but was recently discharged home; she says her insurance stopped paying for care. She had been obtaining outpatient wound care at [facility], but once discharged from the assisted home health wound care started changing her dressings. She has not reported any fevers or chills at home, no drainage from her stump. I discussed the status of the wound with the patient, and it has appeared stable for over a month without significant improvement. With continued, but likely prolonged, wound care, this may eventually heal; but this may take several months. The wound is clean and there is no clinical sign of infection; she may heal better/faster with I&D and secondary wound closure in a surgical setting. I discussed the risks of surgery with the patient, including the risk of bleeding, infection, wound healing impairment/dehiscence, risk of osteomyelitis or stump abscess requiring stump revision or AKA, risk of persistent stump or phantom limb pain, and possible need for further procedures. The patient vocalized understanding of the risks and would like to move forward with the procedure. She had covid earlier this winter and is still testing positive for IgG and IgM antibodies but is less than 90 days from diagnosis so per hospital protocol she a nasal swab was not performed. Operative findings:: no clinical sign of infection; no erythema, no necrotic tissue, no pus Operative note:: The patient was identified in preoperative holding and the left leg signed by myself. Consent was verified with the patient and all questions were answered. After discussion with anesthesia and the patient, the decision was made to perform the surgery with general anesthetic using an LMA. The patient was then taken to the operating room, where she was placed supine on the operative table. 3 g of Ancef were infused intravenously, and general anesthetic induced with an LMA. A nonsterile tourniquet was placed on the upper left thigh. The left BKA stump was then prepped and draped in the usual sterile fashion, using a Betadine prep kit. Timeout was performed, identifying the correct patient, correct procedure, and correct site. The procedure was begun by first exsanguinating the left lower extremity and elevating the tourniquet to 300 mmHg. The medial wound on the BKA stump was superficially dehisced with a clean, broad base of what appears to be adipose tissue. No purulence was noted, no necrotic tissue, no erythema. The wound measured roughly 7 cm in width. A sharp, sterile 15 blade was used to sharply incise this tissue, excising the entire superficial wound base in an ellipsoid fashion. The inner 1 to 2 mm of the skin was excised, along with the superficial wound base, and tissue was debrided down to fascia. No necrotic tissue or purulence was noted along the way. Tissue taken from the wound base was then sent for culture. Saline infused with bacitracin was then used via Pulsavac to irrigate the wound copiously. A fresh 15 blade was used to undermine the margin of the wound and the skin was seen to mobilize very nicely. Some of the deep tissue was reapproximated with 2-0 Vicryl, and then the skin was closed with horizontal mattress sutures using a 3-0 nylon. The incision close
--- NOTE | 2021-01-12 10:44 | P.PN_ITS ---
[facility] Anesthesia Record Part II Discharge Time: 15:04 Destination: Surgical Day Care (OP Surgery) PACU nurse assessment reviewed?: Yes Patient Condition:: Good Anesthesia Complications:: None Swallowing reflex intact?: Yes Cyanosis?: No Blood Pressure: 159/78 Pulse Rate: 84 Temperature: 98.1 F Mental Status: Alert & Oriented Pain level:: 3 Nausea and/or vomitting:: None Intake, IV Amount: 0
[2021-01-12 10:45] VITALS: BP 159/78; PULSE 84; TEMP 36.7
== END 2021-01-11 15:36 | disposition home or self-care (01) ==
LOC: OR 11:10
PROVIDERS: PCP Physician Assistant; Visit Provider Orthopaedic Surgery
DX: E11.40 Type 2 diabetes mellitus with diabetic neuropathy, unspecified; I69.351 Hemiplegia and hemiparesis following cerebral infarction affecting right dominant side; J44.9 Chronic obstructive pulmonary disease, unspecified; Z79.899 Other long term (current) drug therapy; Z86.16 Personal history of COVID-19; T87.81 Dehiscence of amputation stump; Z89.512 Acquired absence of left leg below knee; B95.2 Enterococcus as the cause of diseases classified elsewhere; Z16.21 Resistance to vancomycin; Z79.4 Long term (current) use of insulin; Z72.0 Tobacco use
CPT/HCPCS: 13160; 36415; 80048; 82962; 85025; 85651; 86140; 86328; 87070; 87077; 87081; 87186; 87205; 96374; J2405

== ENCOUNTER → 2021-01-15 15:22 | Outpatient (CLI) | payer MEDICARE, MEDICAID, SELFPAY ==
--- NOTE | 2021-01-15 15:26 | XR_ITS ---
PROCEDURE: XR FOOT WT BEARING RT 3V CLINICAL INDICATION: wound care Pain COMPARISON: CR XR FOOT RT MIN 3V from 06/27/2020 CR XR FOOT LT MIN 3V from 06/27/2020 CR XR FOOT RT MIN 3V from 07/06/2020 CR XR FOOT LT MIN 3V from 07/06/2020 FINDINGS: Severe osteopenia is noted at the tarsal metatarsal junction. There is normal alignment. Mild soft tissue swelling noted along the dorsal aspect of the foot. Osteoarthritic change at the navicular cuneiform joint with severe osteopenia. Cortical regularity along the dorsal and proximal aspect of the medial cuneiform once again noted. This however appears better outlined on today's exam. Other findings:None. IMPRESSION: Severe osteopenia of the midfoot. Persistent cortical regularity of the medial cuneiform dorsally. This however is better circumscribed on today's exam and may be due to healing area of osteomyelitis Dictated by: Jamison Jj MD 01/16/2021 17:57 Jamison Jj MD in [place] 01/16/2021 17:57
== END ==
PROVIDERS: PCP Physician Assistant; Visit Provider Podiatrist
DX: Z51.89 Encounter for other specified aftercare (principal)
CPT/HCPCS: 73630; 87070; 87077; 87186; 87205

== ENCOUNTER → 2021-01-15 17:34 | Outpatient (CLI) | payer MEDICARE, MEDICAID, SELFPAY | PROVIDERS: Visit Provider Nurse Practitioner | DX: L03.115 Cellulitis of right lower limb (principal) | CPT/HCPCS: 73630; 87070; 87077; 87186; 87205 ==

== ENCOUNTER 2021-01-17 13:55 | Outpatient (CLI) | payer MEDICARE, MEDICAID, SELFPAY ==
[2021-01-17 14:07] VITALS: BMI 42.0
--- NOTE | 2021-01-17 14:28 | XR_ITS ---
PROCEDURE: XR CHEST PORTABLE PICC PLAC CLINICAL HISTORY: PICC line placement COMPARISON: CT CHESTWO CT chest wo con from 10/28/2018 CR XR CHEST PORTABLE PICC PLAC from 09/14/2020 CR XR CHEST PORTABLE from 10/18/2020 CR XR CHEST PORTABLE from 10/20/2020 FINDINGS: Left upper extremity PICC line has been placed. The tip is in the region the proximal SVC slowness confluence of the brachiocephalic veins.. Normal heart size. Right hilum is prominent. There is mild patient rotation. No lobar consolidation or collapse. No acute bony abnormalities. IMPRESSION: Left upper extremity PICC line tip is in the region of the SVC/brachiocephalic confluency. Prominent right hilum Dictated by: Jamison Jj MD 01/17/2021 14:44 Jamison Jj MD in [place] 01/17/2021 14:44
[2021-01-17 15:30] VITALS: BP 169/84; PULSE 85; RESP 18; TEMP 36.4; O2SAT 96
[2021-01-17 16:10] VITALS: BP 160/81; PULSE 82; RESP 20; O2SAT 96
== END 2021-01-17 16:10 | disposition home or self-care (01) ==
LOC: INF 13:56
PROVIDERS: Visit Provider Orthopaedic Surgery
DX: S88.119D Complete traumatic amputation at level between knee and ankle, unspecified lower leg, subsequent encounter (principal); T81.30XA Disruption of wound, unspecified, initial encounter
CPT/HCPCS: 36569; 71045; 96365; C1751; J0878

== ENCOUNTER → 2021-01-23 13:46 | Outpatient (CLI) | payer MEDICARE, MEDICAID, SELFPAY ==
--- NOTE | 2021-01-23 13:46 | MR_ITS ---
PROCEDURE: MR LOWER LEG LT WO/W CON CLINICAL INDICATION: post operative infection; rule out osteomylitis Pt had part of left lower left(?) amputated 08/17/2020; now has infection of stump. COMPARISON: CR XR TIBIA FIBULA RT 2V from 12/04/2020 CR XR KNEE LT 3V from 12/04/2020 TECHNIQUE: Routine multiplanar multi echo sequences are performed without gadolinium enhancement. FINDINGS: There has been a prior below the knee amputation. There is slight diffuse increased T2 signal involving the soft tissues at the amputation stump including both the subcutaneous tissue and the muscular tissue with wrapping the stump. At the amputation site there is a focal triangular-shaped area of decreased T1 and increased T2 signal within the intramedullary region of the tibia. This area measures 2.5 cm and demonstrates contrast enhancement. Small fluid collection is present at the distal aspect of the amputation site and anterior to the distal tibia at this area. This fluid collection measures approximately 1.6 cm by 2.3 cm. There is a small sinus tract in the distal aspect of the soft tissues of the stump medially and anteriorly. Within the soft tissues at this area there is a fluid collection also at 3.7 by 0.8 cm. Incidental note is made of a small knee joint effusion. Metallic artifact noted at the stump site. The distal aspect of the fibula has an unremarkable appearance. IMPRESSION: Abnormal MRI of the left tibial stump as described above. The findings are suspicious for osteomyelitis of the tibia at the amputation site along with myositis and cellulitis with a small amount of fluid signal at the amputation site which could be due to small abscess along with a small abscess with fistula at the soft tissues of the stump at the anterior medial aspect distally Dictated by: Jamison Jj MD 01/25/2021 13:04 Jamison Jj MD in [place] 01/25/2021 13:04
== END ==
PROVIDERS: PCP Physician Assistant; Visit Provider Orthopaedic Surgery
DX: T81.40XA Infection following a procedure, unspecified, initial encounter (principal); L03.116 Cellulitis of left lower limb
CPT/HCPCS: 73720; A9576

== ENCOUNTER 2021-01-29 15:35 | Outpatient (CLI) | payer MEDICARE, MEDICAID, SELFPAY ==
[2021-01-29 15:47] VITALS: BMI 41.3
[2021-01-29 15:58] LABS: Basophils # 0.1 K/mm3 (0-0.2); Basophils % 0.9 % (0.1-2.0); Eosinophils # 0.3 K/mm3 (0.0-0.4); Eosinophils % 2.9 % (0.1-12.0); Hematocrit 37.1 % (37.0-47.0); Hemoglobin 11.7 g/dL (12.2-16.2); Lymphocytes # 2.6 K/mm3 (0.7-4.5); Lymphocytes % 26.7 % (10-50); Mean Corpuscular HGB Conc 31.4 g/dL (31.8-35.4); Mean Corpuscular Hemoglobin 28.6 pg (27.0-31.2); Mean Corpuscular Volume 90.9 fl (81-99); Mean Platelet Volume 8.5 fl (7.4-10.4); Monocytes # 0.5 K/mm3 (0.1-1.0); Monocytes % 4.8 % (1.7-9.3); Neutrophils # 6.3 K/mm3 (1.8-7.8); Neutrophils % 64.8 % (37.0-80.0); Platelet Count 410 K/mm3 (142-424); Red Blood Count 4.08 M/mm3 (4.20-5.40); Red Cell Distribution Width 15.4 % (11.5-17.5); White Blood Count 9.8 K/mm3 (4.8-10.8)
[2021-01-29 16:00] LABS: Creatine Kinase 91 U/L (30-135)
[2021-01-29 16:05] LABS: C-Reactive Protein 15.3 mg/L (0-4)
[2021-01-29 17:00] LABS: Erythrocyte Sedimentation Rate 110 mm/hr (0-30)
== END 2021-01-29 15:50 | disposition home or self-care (01) ==
LOC: INF 15:43
PROVIDERS: Visit Provider Orthopaedic Surgery
DX: T14.8XXA Other injury of unspecified body region, initial encounter (principal); T81.30XA Disruption of wound, unspecified, initial encounter; S88.119A Complete traumatic amputation at level between knee and ankle, unspecified lower leg, initial encounter
CPT/HCPCS: 82550; 85025; 85651; 86140

== ENCOUNTER → 2021-02-07 17:42 | Outpatient (CLI) | payer MEDICARE, MEDICAID, SELFPAY ==
[2021-02-07 17:46] LABS: Adenovirus F 40/41, stool Not Detected (NotDetected); Astrovirus Not Detected (NotDetected); Campylobacter Not Detected (NotDetected); Clostridium Difficile A/B, PCR Not Detected (NotDetected); Cryptosporidium Not Detected (NotDetected); Cyclospora Cayetanesis Not Detected (NotDetected); Entamoeba histolytica Not Detected (NotDetected); Enteroaggregative E coli Not Detected (NotDetected); Enteropathogenic E coli Not Detected (NotDetected); Enterotoxigenic E coli Not Detected (NotDetected); Giardia lamblia Not Detected (NotDetected); Norovirus Not Detected (NotDetected); Plesimonas Shigalloides, PCR Not Detected (NotDetected); Rotavirus A Not Detected (NotDetected); Salmonella, PCR Not Detected (NotDetected); Sapovirus Not Detected (NotDetected); Shiga-like toxin E coli Not Detected (NotDetected); Shigella Enterovasive E coli Not Detected (NotDetected); Vibrio Cholerae Not Detected (NotDetected); Vibrio, PCR Not Detected (NotDetected); Yersinia Entercolitica, PCR Not Detected (NotDetected)
== END ==
PROVIDERS: Visit Provider Physician Assistant
DX: R19.7 Diarrhea, unspecified (principal)
CPT/HCPCS: 87506

== ENCOUNTER 2021-03-03 12:46 | Observation (INO) | payer MEDICARE, MEDICAID, SELFPAY ==
[2021-03-03] VITALS (15 sets, daily range): BP systolic 138–214; BP diastolic 80–117; PULSE 82–101; RESP 16–22; TEMP 36.6–36.8; O2SAT 90–97; BMI 41.3; BMI 41.1
--- NOTE | 2021-03-03 12:47 | HMH.EDGENADL ---
ED Disposition Clinical Impression: CHF (congestive heart failure) Qualifiers: Heart failure type: unspecified Heart failure chronicity: acute Qualified Code(s): I50.9 - Heart failure, unspecified Disposition: Admitted as Observation Condition on Discharge: Good Referrals: PCP,No [Non-Staff] - Time of Disposition: 14:52 - Critical Care Critical Care Time: No Attestation: On , the high probability of a clinically significant, sudden or life threatening deterioration of the following system(s) required my full and direct attention, intervention and personal management. The time I documented below is in addition to time spent performing reported procedures but includes the following listed in this critical care notation. Medical Decision Making - Medical Records Medical records reviewed: Yes: I reviewed the patient's medical records. - Edgar Inquiry Pt receiving controlled substance: No Vital Signs: 03/03/21 12:55 Temperature 98 F Temperature Source Oral Pulse Rate [Radial] 89 Respiratory Rate 22 Blood Pressure [Right Arm] 165/85 H Blood Pressure Mean [Right Arm] 111 Blood Pressure Position [Right Arm] Sitting 02 Sat by Pulse Oximetry 92 L Oxygen Delivery Method Room Air - Lab Data Lab Results 03/03/21 12:55: WBC 8.4, RBC 4.17 L, Hgb 11.4 L, Hct 36.4 L, MCV 87.4, MCH 27.3, MCHC 31.2 L, RDW 15.1, Plt Count 247, MPV 8.8, Neut % (Auto) 58.6, Lymph % (Auto) 32.5, Swift % (Auto) 6.5, Eos % (Auto) 1.4, Baso % (Auto) 1.0, Neut # (Auto) 4.9, Lymph # (Auto) 2.7, Swift # (Auto) 0.6, Eos # (Auto) 0.1, Baso # (Auto) 0.1 03/03/21 12:55: Troponin I 0.02, NT-Pro-B Natriuret Pep 216 H 03/03/21 12:55: Sodium 136, Potassium 3.7, Chloride 96 L, Carbon Dioxide 33 H, Anion Gap 10.7, BUN 13, Creatinine 0.60, Estimated Creat Clear 111, Estimated GFR 104, Est GFR ( Amer) 126, Glucose 261 H, Calcium 9.2 Result diagrams: 03/03/21 12:55 03/03/21 12:55 Orders (Tests/Meds): ED MEDICATIONS Discontinued Medications Generic Name Dose Route Start Last Admin Trade Name Freq PRN Reason Stop Dose Admin Furosemide 20 mg 03/03/21 14:25 03/03/21 14:35 Furosemide 20 Mg/2 Ml Vial IV 03/03/21 14:26 20 mg ONCE ONE Administration ORDERS Category Date Time Status Full Resp Panel w/COVID ([facility]) Routine Lab 03/03/21 13:30 Received Troponin I Q3H Lab 03/03/21 16:00 Ordered Troponin I Q3H Lab 03/03/21 19:00 Ordered - Radiology Data #1 Image(s): Chest Image Reviewed: Yes I reviewed the patient's radiology image Preliminary Findings: Abnormal 2 single views obtained. 1 seems to have increased haziness, congestion. Second single view seems more clear. - ECG Data Tracing #1 A 9 bpm, normal sinus rhythm, no ST elevation or depression, no ectopy, prolonged QT. ECG initial impression date: 03/03/21 ECG initial impression time: 13:30 Medical Decision Narrative: 55yo F evaluated for shortness of breath. Patient is in no acute distress initial evaluation. Her O2 saturations are in the low 90s. Of note, the patient's nasal cannula is around her chin. She states she is supposed to wear 2 to 3 L nasal cannula at night. She denies a history of CHF. Shortness of breath work-up is initiated. Metabolic panel, CBC unremarkable. Troponin is 0.02. Patient has a BNP of just over 200 without previous study for comparison. Patient's chest x-ray showed possible pulmonary congestion. We will treat the patient with IV Lasix and see if her breathing improves. Patient likely needs admission for further work-up and management given she has no history of congestive heart failure in the past and reports significant orthopnea. Dr. Suárez agrees to admission for Dr. Patterson at this time. General Adult HPI - General Chief complaint: Shortness of Breath/Dyspnea Stated complaint: SOB Time Seen by Provider: 03/03/21 12:48 Mode of Arrival: EMS - History of Present Illness HPI narrative: 55yo F with complicate
--- NOTE | 2021-03-03 12:55 | XR_ITS ---
PROCEDURE: XR CHEST PORTABLE CLINICAL HISTORY: sob Shortness of air and chest pain COMPARISON: CT CHESTWO CT chest wo con from 10/28/2018 CR XR CHEST PORTABLE from 10/18/2020 CR XR CHEST PORTABLE from 10/20/2020 CR XR CHEST PORTABLE PICC PLAC from 01/17/2021 FINDINGS: The cardiomediastinal silhouette and pulmonary vascularity are within normal limits. The lungs are clear without infiltrates, suspicious nodules, or pleural effusions. No acute bony abnormalities. IMPRESSION: No acute findings. Dictated by: Jamison Jj MD 03/03/2021 14:34 Jamison Jj MD in [place] 03/03/2021 14:34
[2021-03-03 13:10] LABS: Basophils # 0.1 K/mm3 (0-0.2); Eosinophils # 0.1 K/mm3 (0.0-0.4); Eosinophils % 1.4 % (0.1-12.0); Hematocrit 36.4 % (37.0-47.0); Hemoglobin 11.4 g/dL (12.2-16.2); Lymphocytes # 2.7 K/mm3 (0.7-4.5); Lymphocytes % 32.5 % (10-50); Mean Corpuscular HGB Conc 31.2 g/dL (31.8-35.4); Mean Corpuscular Hemoglobin 27.3 pg (27.0-31.2); Mean Corpuscular Volume 87.4 fl (81-99); Mean Platelet Volume 8.8 fl (7.4-10.4); Monocytes # 0.6 K/mm3 (0.1-1.0); Monocytes % 6.5 % (1.7-9.3); Neutrophils # 4.9 K/mm3 (1.8-7.8); Neutrophils % 58.6 % (37.0-80.0); Platelet Count 247 K/mm3 (142-424); Red Blood Count 4.17 M/mm3 (4.20-5.40); Red Cell Distribution Width 15.1 % (11.5-17.5); White Blood Count 8.4 K/mm3 (4.8-10.8)
[2021-03-03 13:14] LABS: Chloride 96 mmol/L (98-107)
[2021-03-03 13:15] LABS: Potassium 3.7 mmoL/L (3.5-5.1); Sodium 136 mmol/L (136-145)
[2021-03-03 13:17] LABS: Blood Urea Nitrogen 13 mg/dl (7-17); Creatinine Clearance Estimated 111 mL/min (50-200); Estimated Glomerular Filt Rate 104 ml/min (>60); GFR (African American) 126 ML/MIN (>60)
[2021-03-03 13:18] LABS: Anion Gap 10.7 mEq/L (5-15); Calcium 9.2 mg/dl (8.4-10.2); Carbon Dioxide 33 mmol/L (22.0-30.0); Glucose 261 mg/dl (74-100)
--- NOTE | 2021-03-03 13:26 | ECG_ITS ---
APPROVED REPORT Exam: Resting ECG HR:89 bpm ECG Measurements Heart Rate 89 AXES UT 170 P 44 QRSd 96 QRS -4 QT 414 T 70 QTc 503 Conclusion Normal sinus rhythm Isolated q in III - old finding Prolonged QT Abnormal ECG Electronically signed by : Jimenez Suárez, 03/04/2021 08:50:26
[2021-03-03 13:31] LABS: NT Pro Brain Natriuretic Pep. 216 pg/mL (0-125)
[2021-03-03 13:34] LABS: Troponin I 0.02 ng/ml (0.00-0.034)
[2021-03-03 13:47] LABS: Adenovirus,PCR Not Detected (NotDetected); Bordetella Pertussis Not Detected (NotDetected); Chlamydophila Pneumoniae, PCR Not Detected (NotDetected); Coronavirus 19, PCR Not Detected (NotDetected); Coronavirus 229E Not Detected (NotDetected); Coronavirus NL63 Not Detected (NotDetected); Coronavirus OC43 Not Detected (NotDetected); Coronovirus HKU1,PCR Not Detected (NotDetected); Human Metapneumovirus Not Detected (NotDetected); Influenza A, PCR Not Detected (NotDetected); Influenza AH1, 2009 Not Detected (NotDetected); Influenza AH1, PCR Not Detected (NotDetected); Influenza AH3,PCR Not Detected (NotDetected); Influenza B, PCR Not Detected (NotDetected); Mycoplasma Pneumoniae, PCR Not Detected (NotDetected); Parainfluenza 1, PCR Not Detected (NotDetected); Parainfluenza 2, PCR Not Detected (NotDetected); Parainfluenza 3, PCR Not Detected (NotDetected); Parainfluenza 4, PCR Not Detected (NotDetected); Respiratory Syncytial Virus Not Detected (NotDetected); Rhinovirus/Enterovirus Not Detected (NotDetected)
--- NOTE | 2021-03-03 16:57 | PC.NURSE ---
report called to abrahamrn
[2021-03-03 17:25] LABS: Troponin I 0.02 ng/ml (0.00-0.034)
[2021-03-03 19:34] LABS: Troponin I 0.02 ng/ml (0.00-0.034)
[2021-03-03 22:03] LABS: T4 (Thyroxine) 9.7 ug/dl (5.53-11.0)
[2021-03-03 22:17] LABS: Thyroid Stimulating Hormone 2.73 uIU/mL (0.465-4.68)
[2021-03-03 22:54] LABS: POC Glucose,Bedside 537 (70-110)
[2021-03-03 23:54] LABS: Glucose,Random 565 mg/dL (74-100)
[2021-03-04] VITALS (11 sets, daily range): BP systolic 128–179; BP diastolic 67–83; PULSE 62–110; RESP 17–24; TEMP 36.7–37.2; O2SAT 89–96; BMI 41.6
--- NOTE | 2021-03-04 03:07 | PC.NURSE ---
A&OX4. PT TOLERATING 3.5L NC WITH O2 SAT IN MID 90S. PT HAS INTERMITTENT NON PRODUCTIVE COUGH T/O SHIFT. PT HAS BEEN GIVEN PRN BREATHING TREATMENT. PT HAS NOT APPEARED SOA OR IN ANY DISTRESS T/O SHIFT. PT REMAINS INCONTINENT T/O SHIFT, NEEDING FREQUENT CHANGES. PT IS ABLE TO TELL STAFF WHEN SHE HAS USED THE BATHROOM. L BKA PRESENT, CDI. R HEEL IS RED AND CRACKED, WRAPPED, CDI. PT X2 ASSIST WHEN MOVING IN BED. WEAKNESS NOTED IN R ARM. PT BEDTIME GLUCOSE 537, REPORTED TO MD LAL. PT GIVEN ORDERED INSULIN. STAT LAB DRAWN. PT HAS HAD NO OTHER C/O THUS FAR. VSS WILL CONTINUE TO MONITOR.
--- NOTE | 2021-03-04 05:09 | PC.NURSE ---
ice passed trash and linens picked up. pt had no other needs.[email or web address]
[2021-03-04 05:17] LABS: POC Glucose,Bedside 356 (70-110)
[2021-03-04 06:11] LABS: Basophils % 0.2 % (0.1-2.0); Hematocrit 34.9 % (37.0-47.0); Hemoglobin 10.7 g/dL (12.2-16.2); Lymphocytes # 1.6 K/mm3 (0.7-4.5); Mean Corpuscular HGB Conc 30.6 g/dL (31.8-35.4); Mean Corpuscular Hemoglobin 27.5 pg (27.0-31.2); Mean Corpuscular Volume 89.9 fl (81-99); Mean Platelet Volume 8.9 fl (7.4-10.4); Monocytes # 0.6 K/mm3 (0.1-1.0); Monocytes % 9.5 % (1.7-9.3); Neutrophils # 3.9 K/mm3 (1.8-7.8); Neutrophils % 63.4 % (37.0-80.0); Platelet Count 236 K/mm3 (142-424); Red Blood Count 3.88 M/mm3 (4.20-5.40); Red Cell Distribution Width 15.1 % (11.5-17.5); White Blood Count 6.1 K/mm3 (4.8-10.8)
[2021-03-04 06:31] LABS: Anion Gap 6.8 mEq/L (5-15); Blood Urea Nitrogen 19 mg/dl (7-17); Calcium 8.8 mg/dl (8.4-10.2); Carbon Dioxide 35 mmol/L (22.0-30.0); Chloride 96 mmol/L (98-107); Creatinine Clearance Estimated 92 mL/min (50-200); Estimated Glomerular Filt Rate 87 ml/min (>60); GFR (African American) 105 ML/MIN (>60); Glucose 355 mg/dl (74-100); Potassium 3.8 mmoL/L (3.5-5.1); Sodium 134 mmol/L (136-145)
--- NOTE | 2021-03-04 09:34 | HMH.HP ---
*Admission Date: 03/03/21 *Chief complaint: sob *History of present illness: this patient reports she has been progressive sob over the last few weeks - no fever - had been vaping but has stopped , no recent tob use - occ chest pain - pt was seen in the ed 5yo F with complicated past medical history significant for multiple strokes, diabetes with poor glycemic control, status post left lower extremity amputation and recent bloodstream infection reports emergency department secondary to shortness of breath. Patient reports has been ongoing for approximately a week and progressively worsening. She reports undergoing a heart catheterization with Dr. Contreras in the past for which no intervention was necessary. She did have peripheral stenting due to peripheral vascular disease. She denies fever, nausea/vomiting/diarrhea. Patient reports she recently had negative blood work for signs of bacteremia but continues on antibiotics at the instruction of her specialist/surgeon. She denies any history of congestive heart failure. She states her symptoms are worse when she attempts to lie flat. She states she has to sleep at an incline in order to feel like she is breathing well. pt was admitted for eval and treatment [facility] History I have reviewed the patient's past medical history: Yes Medical History: Reports:: Anxiety, Atherosclerotic Heart Disease, Congestive Heart Failure, Chronic Obstructive Pulmonary Disease (COPD), Coronary Artery Disease, Cerebrovascular Accident, Depression, Diabetes Mellitus Type 2, Hyperlipidemia, Hypertension, Peripheral Artery Disease, Peripheral Vascular Disease Denies:: Cancer, Diabetes Mellitus Type 1, Internal Pacemaker, MRSA, Seizures *Have you ever received a pneumonia vaccine?: No *Have you received a flu vaccine this season?: No Other Medical History: Reports: Cataracts, Hypothyroidism, Thyroid Disease. Denies: Blood Transfusion Reaction Laterality Cases: Bilateral: Other Other Surgeries: Yes: Cardiac Catheterization, Cardiac Surgery, Colonoscopy, Coronary Stent, Thyroidectomy, Tubal Ligation, Other. No: Pacemaker Amputation: Yes (Toe left big, L BELOW THE KNEE) Fractures: No - *Social History Smoking Status: Current every day smoker Tobacco Type: cigarettes # Packs/Day (cigarettes): 1 #Yrs smoked (if former smoker): 30 Alcohol Intake: never Substance Use Type: denies use *Occupational Status:: disabled Housing: house Household Members: family *Travel in the last 8 weeks: None - Psychiatric History Pschychiatric History:: Reports:: Anxiety, Depression Family Hx:: Diabetes, Hyperlipidemia, Hypertension, Stroke Review of Systems - Review of Systems Review of systems:: pertinent systems reviewed and negative unless documented below - Constitutional Reports malaise, Denies fever(s) - Eyes Denies blurry vision - ENT Denies change in voice - *Cardiovascular Reports chest pain, Reports shortness of breath - *Respiratory Reports shortness of breath, Denies cough - *Gastrointestinal Denies abdominal pain - *Genitourinary Denies blood in urine - *Musculoskeletal Reports other (s/p lt bka), Denies joint pain, Denies joint swelling - Integumentary/Breasts Denies rash - *Neurologic Denies seizure-like activity, Denies headache(s) - Psychiatric Reports anxiety Meds Home Medications Medication Instructions Recorded Confirmed Type acetaminophen 500 mg tablet 1,000 mg PO Q6HP PRN #120 tab 12/11/20 03/03/21 Rx budesonide-formoterol HFA 160 2 puff INHALATION Q12H #10.2 g 12/11/20 03/03/21 Rx mcg-4.5 mcg/actuation aerosol inhaler levothyroxine 150 mcg tablet 150 mcg PO DAILY #90 tab 12/11/20 03/03/21 Rx melatonin 3 mg tablet 3 mg PO HS #90 tab 12/11/20 03/03/21 Rx rivaroxaban 2.5 mg tablet 2.5 mg PO BID #180 tab 12/11/20 03/03/21 Rx Buspirone HCl [Buspar 10mg 15 mg PO TID 01/11/21 03/03/21 History tablet] Furosemide [Furosemide 20mg Tab*] 20 mg PO DAILY 01/11/21 03/03/21 Hist
--- NOTE | 2021-03-04 09:38 | CT_ITS ---
PROCEDURE: CT ANGIO CHEST CLINCIAL INDICATION: sob Shortness of breath COMPARISON: CT CHESTWO CT chest wo con from 10/28/2018 TECHNIQUE: IV Contrast: 70ML Isovue 370 Axial images obtained with sagittal and coronal reformats. All CT scans at the facility use one or more dose reduction, viz: automated exposure control, ma/kV adjustment per patient size (including targeted exams where dose is matched to indication, i.e. head), or iterative reconstruction technique. FINDINGS: HEART AND MEDIASTINAL STRUCTURES: No evidence of pulmonary embolus aortic aneurysm aortic dissection. No mediastinal or hilar mass. There is severe coronary artery calcification and or coronary artery stents noted in LAD and circumflex. LUNGS AND PLEURAL SPACES: There are atelectatic changes in the lower lobes posteriorly with minimal atelectatic change in lingula. No effusions or suspicious nodules.. BONY STRUCTURES: Degenerative changes thoracic spine with mild chronic wedging of T9, T8, and T7. UPPER ABDOMEN: Severe splenic artery calcification. ADDITIONAL FINDINGS: No other significant abnormalities. IMPRESSION: 1. Mild atelectatic changes in the lung bases. 2. Severe coronary artery calcification. Dictated by: Jamison Jj MD 03/04/2021 13:57 Jamison Jj MD in [facility] 03/04/2021 13:57
[2021-03-04 09:56] LABS: Magnesium 1.4 mg/dl (1.6-2.3)
--- NOTE | 2021-03-04 10:37 | HMH.PHAVTE ---
[facility] Pharmacy VTE Monitoring - Patient Demographics Admission date: 03/04/21 Report Date: 03/04/21 Time: 10:37 Allergies/Adverse Reactions: Patient Allergies protamine Allergy (Verified 02/19/21 15:47) Height: 1.75 m Weight: 127.573 kg Patient Problems: Current Active Problems CHF (congestive heart failure) (Acute) - VTE Risk Labs: VTE Related Lab Results Hgb 10.7 g/dL (12.2-16.2) L 03/04/21 05:55 Hct 34.9 % (37.0-47.0) L 03/04/21 05:55 Plt Count 236 K/mm3 (142-424) 03/04/21 05:55 BUN 19 mg/dl (7-17) H D 03/04/21 05:55 Creatinine 0.70 mg/dl (0.52-1.04) 03/04/21 05:55 Estimated Creat Clear 92 mL/min (50-200) 03/04/21 05:55 VTE Score: 9 VTE Risk Level: Moderate Risk - Prophylaxis Types of VTE Prophylaxis: TEDS Knee High Location of Applied Device: Not Applicable (CHRIS HOSE ORDERED, ALSO TAKING XARELTO 2.5 MG BID.)
--- NOTE | 2021-03-04 10:57 | PC.NURSE ---
Pt down for CTA @ this time.
[2021-03-04 11:30] LABS: POC Glucose,Bedside 253 (70-110)
[2021-03-04 16:10] LABS: POC Glucose,Bedside 207 (70-110)
--- NOTE | 2021-03-04 16:12 | PC.NURSE ---
no acute changes since previous nurse's bio, AxOx4, has rested t/o most of this part of shift, no complaints of SOA or chest pain, remains on 3.5 L NC, O2 sats 93-94%
[2021-03-04 20:41] LABS: POC Glucose,Bedside 268 (70-110)
[2021-03-05] VITALS (10 sets, daily range): BP systolic 116–151; BP diastolic 58–76; PULSE 73–89; RESP 16–20; TEMP 36.6–36.9; O2SAT 93–99; BMI 42.3; BMI 42.4
--- NOTE | 2021-03-05 03:39 | PC.NURSE ---
A&OX4. PT TOLERATING 3.5L NC T/O SHIFT. PT HAS HAD NO COUGH THUS FAR OR C/O SOB. PT HAS SLEPT MAJORITY OF SHIFT. L BKA CDI. PT REMAINS INCONTINENT, KEPT CLEAN AND DRY. NO FURTHER C/O THUS FAR, PT RESTING. VSS WILL CONTINUE TO MONITOR.
[2021-03-05 05:34] LABS: POC Glucose,Bedside 198 (70-110)
--- NOTE | 2021-03-05 08:00 | CA_ITS ---
APPROVED REPORT EXAM: Comprehensive 2D, Doppler, and color-flow Echocardiogram Receiver Bulk System: Callie Hernandez CRT Ht: 5 ft 8 in Wt: 281lbs BSA: 2.36 BP: 179/83 mmHg Indications: COPD, CVA/TIA, Diabetes, Obesity, CAD, Hyperlipidemia, Hypertension/HDD, PAD, limited images, poor windows, btk amput left 2D Dimensions IVSd 2.24 cm LVEF (Visual) 54.60 % PWd 1.18 cm LVDd 3.84 cm LVDs 2.77 cm LVOT 2.09 cm (M/F) 1.5-2.5 M-Mode Dimensions RVDd 3.03 cm (0.9-2.6) LA Diam 4.30 cm (1.9-4.0) LVDd 4.91 cm (3.5-5.7) Ao Diam 3.50 cm (2.0-3.7) LVDs 3.61 cm (3.5-5.7) IVSd 1.88 cm (0.6-1.1) PWd 0.82 cm (0.6-1.1) EF (Teich) 51.70% FS 26.50% EDV (Teich) 113.40 mL ESV (Teich) 54.80 mL LV Diastology E Decel Time 150.00 (160-240 msec) E/A Ratio 0.91 Aortic Valve AO Peak GR. 3.60 mmHg Mitral Valve MV E Max Sha. 58.00 (40-130 cm/s) MV A Velocity 64.00 (40-130 cm/s) E/A Ratio 0.91 MV Decel. Time 150.00 (160-240 ms) MV PHT 44.00 ms Tricuspid Valve TR P. Velocity 120.00 cm/s RAP Estimate 10.00 mmHg RVSP 15.70 mmHg Left Ventricle Technically very difficult and poor study, repeat study with Definity contrast is recommended. Probably preserved left ventricular systolic function, segmental wall motion abnormality is difficult from this study. Visually estimated ejection fraction is probably 50%. Diastolic parameters are inconclusive. Right Ventricle Right atrium and right ventricle in the subcostal view appears to be normal size and contractility. Aortic Valve Aortic valve is not well-visualized Mitral Valve Mitral valve grossly normal, there is mild mitral regurgitation. Tricuspid Valve Tricuspid grossly normal, there is mild tricuspid regurgitation, tricuspid regurgitation jet velocity is inadequate for calculation of the right ventricular systolic pressure. Pulmonic Valve Pulmonic valve is poorly visualized. Great Vessels Aortic root is not well visualized. Pericardium No significant pericardial effusion noted. Conclusion 1. Technically very difficult and poor study, probably preserved left ventricular systolic function, segmental wall motion analysis from the study is difficult, repeat study with Definity contrast is recommended. Diastolic parameters are inconclusive. Visually estimated ejection fraction from the obtained views is approximately 50%. 2. Mild mitral and tricuspid regurgitation. 3. Aortic valve is not visualized. 4. No significant pericardial effusion noted. Electronically signed by : Dg Thompson, 03/05/2021 09:56:19
--- NOTE | 2021-03-05 09:45 | HMH.ACPN2 ---
Internal Medicine - PN: Subj *Date: 03/05/21 *Time: 08:20 Interval history: pt sitting up in bed, states she still feels bad. pt states she was taking antibiotics for a infection in leg and has seen ID in [place] Exam Vital signs and Labs for Last 24 Hours: Temp Pulse Resp BP Pulse Ox 97.9 F 80 18 136/58 L 96 03/05/21 08:00 03/05/21 08:10 03/05/21 08:10 03/05/21 08:00 03/05/21 08:10 Laboratory Results - last 24 hr 03/04/21 05:55: Magnesium 1.4 L 03/04/21 11:23: POC Glucose 253 H 03/04/21 16:03: POC Glucose 207 H 03/04/21 19:47: POC Glucose 268 H 03/05/21 05:13: POC Glucose 198 H I & O for Last 24 hours: Intake & Output 03/02/21 03/03/21 03/04/21 03/05/21 11:59 11:59 11:59 11:59 Intake Total 840 / 840 2286 / 2286 Output Total 200 / 200 500 / 500 Balance 640 / 640 1786 / 1786 Weight 281 lb 4 oz 285 lb 8 oz - Constitutional no acute distress, obese - *Routine HEENT Exam Head: Present: normocephalic Eye: Present: PERRL ENT: Present: mucous membranes moist - *Routine Neck Exam Present: supple. Absent: lymphadenopathy - *Routine Respiratory Exam Present: CTA bilaterally - *Routine Cardiovascular Exam Present: RRR - *Routine Abdominal Exam Present: soft, normoactive bowel sounds. Absent: tenderness - *Routine Extremities Exam Present: normal capillary refill, amputation. Absent: cyanosis, clubbing, edema Comments: left bka rt heel dressing - *Routine Skin Exam Present: warm, scars. Absent: rash Comments: left bka scars no redness rt heel with dry areas no redness or drainage. - *Routine Neurological Exam Present: alert, oriented X3 - Routine Psychiatric Exam Present: normal affect Assessment and Plan (1) CHF (congestive heart failure) Status: Acute Qualifiers: Heart failure type: unspecified Heart failure chronicity: acute Qualified Code(s): I50.9 - Heart failure, unspecified Category: Medical Code(s): I50.9 - Heart failure, unspecified (2) Diabetic Foot Ulcer Status: Acute Qualifiers: Category: Medical Code(s): E11.621 - Type 2 diabetes mellitus with foot ulcer; L97.509 - Non-pressure chronic ulcer of other part of unspecified foot with unspecified severity (3) History of CVA (cerebrovascular accident) Status: Chronic Category: Medical Code(s): Z86.73 - Personal history of transient ischemic attack (TIA), and cerebral infarction without residual deficits (4) Morbid obesity with body mass index (BMI) of 40.0 to 44.9 in adult Status: Chronic Category: Medical Code(s): E66.01 - Morbid (severe) obesity due to excess calories; Z68.41 - Body mass index [BMI]40.0-44.9, adult - Assessment and plan all Dx Assessment and Plan for all problems:: rounded with dr orozco all orders per dr orozco consult cardiology- chf-calcifications seen on chest ct.
--- NOTE | 2021-03-05 10:31 | HMH.CNCARD ---
History of Present Illness Consult date: 03/05/21 Requesting physician: Sameer Patterson Consult reason: chest pain, shortness of breath Chief complaint: CP and SOA History of present illness: This is a 55-year-old white female who presented to the emergency department with complaints of shortness of breath. The patient states that her shortness of breath has been progressively worsening over the last several days to approximately a week. She states that this got severe. It was associated with some chest pain in the substernal aspect of her chest. This did not radiate. She states she has also been having some fluttering in her heart. The patient states that since being in the hospital her symptoms have not improved at all. She denies any nausea or diaphoresis. She states that she just does not feel well and is really tired. She states that she was unable to lie flat at home. She states that she is still unable to lie flat because of her shortness of breath. She denies any lower extremity edema. She denies any fever, chills, nausea or vomiting or diarrhea. She is a diabetic which is poorly controlled. She does also have a history of stroke, coronary artery disease and PAD. She is status post left below the knee amputation. In the emergency department her troponins were negative. Her BNP was slightly elevated and her chest x-ray showed pulmonary congestion. She also had a CTA of the chest which showed severe coronary calcifications. [facility] History I have reviewed the patient's past medical history: Yes Medical History: Reports:: Anxiety, Atherosclerotic Heart Disease, Congestive Heart Failure, Chronic Obstructive Pulmonary Disease (COPD), Coronary Artery Disease, Cerebrovascular Accident, Depression, Diabetes Mellitus Type 2, Hyperlipidemia, Hypertension, Peripheral Artery Disease, Peripheral Vascular Disease Denies:: Cancer, Diabetes Mellitus Type 1, Internal Pacemaker, MRSA, Seizures *Have you ever received a pneumonia vaccine?: No *Have you received a flu vaccine this season?: No Other Medical History: Reports: Cataracts, Hypothyroidism, Thyroid Disease. Denies: Blood Transfusion Reaction Laterality Cases: Bilateral: Other Other Surgeries: Yes: Cardiac Catheterization, Cardiac Surgery, Colonoscopy, Coronary Stent, Thyroidectomy, Tubal Ligation, Other. No: Pacemaker Amputation: Yes (Toe left big, L BELOW THE KNEE) Fractures: No - *Social History Smoking Status: Current every day smoker Tobacco Type: cigarettes # Packs/Day (cigarettes): 1 #Yrs smoked (if former smoker): 30 Alcohol Intake: never Substance Use Type: denies use *Occupational Status:: disabled Housing: house Household Members: family *Travel in the last 8 weeks: None - Psychiatric History Pschychiatric History:: Reports:: Anxiety, Depression Family Hx:: Diabetes, Hyperlipidemia, Hypertension, Stroke Meds Home Medications Medication Instructions Recorded Confirmed Type acetaminophen 500 mg tablet 1,000 mg PO Q6HP PRN #120 tab 12/11/20 03/03/21 Rx budesonide-formoterol HFA 160 2 puff INHALATION Q12H #10.2 g 12/11/20 03/03/21 Rx mcg-4.5 mcg/actuation aerosol inhaler levothyroxine 150 mcg tablet 150 mcg PO DAILY #90 tab 12/11/20 03/03/21 Rx melatonin 3 mg tablet 3 mg PO HS #90 tab 12/11/20 03/03/21 Rx rivaroxaban 2.5 mg tablet 2.5 mg PO BID #180 tab 12/11/20 03/03/21 Rx Buspirone HCl [Buspar 10mg 15 mg PO TID 01/11/21 03/03/21 History tablet] Furosemide [Furosemide 20mg Tab*] 20 mg PO DAILY 01/11/21 03/03/21 History gabapentin 600 mg tablet 600 mg PO QID #120 tab 02/05/21 03/03/21 Rx albuterol sulfate 90 mcg/actuation 2 puff INHALATION Q4HP PRN #6.7 g 02/12/21 03/03/21 Rx aerosol inhaler amlodipine 10 mg tablet 10 mg PO DAILY #90 tab 02/15/21 03/03/21 Rx aspirin 81 mg chewable tablet 81 mg PO DAILY #90 tab 02/15/21 03/03/21 Rx atorvastatin 80 mg tablet 80 mg PO HS #90 tab 02/15/21 03/03/21 Rx lisinopril 10 mg tablet 10 mg PO DAILY #90 tab 02/15/21
[2021-03-05 11:30] LABS: POC Glucose,Bedside 220 (70-110)
[2021-03-05 16:33] LABS: POC Glucose,Bedside 271 (70-110)
--- NOTE | 2021-03-05 16:41 | PC.NURSE ---
Pt has been pleasant and cooperative this shift. A&O X4. No complaints of pain or SOA. Lungs CTA. 1+ pitting edema noted to RLE. LT BKA noted. RT heel protector in place due to redness/soreness. Bilateral buttocks reddened and moisture barrier cream applied. Pt is incontinent and purwick is draining clear, yellow urine without issue. No BM this shift. Appetite is good and pt eats the majority of all meals. FSBS results have been 220 and 271. Received a phone call from Dr. Lua ([facility]) with instruction/recommendation to remove PICC line. Message relayed to Dr. Patterson and received order to D/C LT upper arm PICC. Lexiscan stress test rescheduled for tomorrow due to pt receiving food for lunch. NPO after midnight order is in place for tonight. 22 G peripheral IV in the LT wrist is patent and SL. IVF DC'd this shift per APRN. HILARIO Carranza. Call light within reach. Will continue to monitor.
[2021-03-05 19:52] LABS: POC Glucose,Bedside 256 (70-110)
--- NOTE | 2021-03-05 20:34 | PC.NURSE ---
RA SATS 88%. TURN PT O2 BACK ON TO 2L N/C
[2021-03-06] VITALS (12 sets, daily range): BP systolic 120–145; BP diastolic 67–79; PULSE 70–95; RESP 16–18; TEMP 36.3–37; O2SAT 91–96; BMI 42.0
--- NOTE | 2021-03-06 | CA_ITS ---
APPROVED REPORT Exam: Pharmacologic Technologist: Lisha Wilson, Ht: 5 ft 8 in Wt: 286 lbs BSA: 2.38 m2 HR: 75 bpm BP: 128/65 mmHg Indications: New onset of CHF Medical History Medical History: HTN, Hyperlipidemia, Diabetic ??? Insulin Cardiac Risk Factors: HTN, Hyperlipidemia, Diabetes (insulin) Stress Test Details Test: LEXISCAN HR Resting HR: 76 bpm Max Heart Rate (APMHR): 165.736824 bpm Max HR Achieved: 94 bpm Target HR (85% APMHR): 140.382689 bpm % of APMHR: 56.97 Recovery HR: 80 bpm BP Resting BP: 128/65 mmHg Max BP: 141/62 mmHg Recovery BP: 141.0/62.0 mmHg ECG Resting ECG: NSR,EARLY REPOLARIZATION CHANGES. Clinical Exercise duration: 04:01 min Highest Stage Achieved: Exercise capacity: 1.0 METs Stress ECG Conclusion DURING INFUSION PATIENT HAD MILD SOA AND MILD MALAISE. NO CP. NO ARRHYTHMIAS/ECTOPY. NO SIGNIFICANT ST-T CHANGES. UNREMARKABLE LEXISCAN STRESS. MYOVIEW IMAGES REPORTED SEPARATELY Test Summary REST . . . . . . . Resting REST 14:33 . . 76 . 128/ 65 . . Stage 1 01:00 . . 88 . . . . Stage 2 01:00 . . 94 . . . . Stage 3 01:00 . . 85 . 131/ 62 . . Stage 4 01:00 . . 82 . 125/ 63 . . Stage 4 01:01 . . 82 . 125/ 63 . Stop exercise at 04:01 RECOVERY 01:00 . . 80 . 141/ 62 . . RECOVERY 02:00 . . 81 . 132/ 58 . . RECOVERY 03:00 . . 79 . 120/ 61 . . RECOVERY 03:45 . . 80 . 120/ 61 . . Electronically signed by : Dg Thompson, 03/06/2021 18:21:05
--- NOTE | 2021-03-06 | NM_ITS ---
APPROVED REPORT Exam: Nuclear Stress Test Indication: SOB, CHF, HTN, DM, High cholesterol, Former tobacco use, Family history Patient Location: Inpatient Stress Tech: Lisha Wilson [place] Tech:Brigette Pinon, ARRT, RT (R)(N) Ht: 5 ft 9 in Wt: 275 lbs Bra Size: 44D HR: 75 bpm BP: 128/65 mmHg BSA: 2.37 m2 BMI: 40.6 History: SOB, CHF, HTN, DM, High cholesterol, Former tobacco use, Family history Procedure: Patient received a 0.4 mg of intravenous Lexiscan, resting heart rate 75 bpm, resting blood pressure 128/65 mmHg, with Lexiscan maximum heart rate achived was 93 bpm which is 85 % of the maximum predicted heart rate and blood pressure was 115/64 mmHg. With Lexiscan, patient denied any complaint of chest pain. Cardiac Stress and Resting SPECT Images: Cardiac Stress and Resting SPECT images were obtained using technetium 99m Myoview 31.7 mCi stress and 10.23 mCi at rest. Patient unable to do Prone images due to prior stroke affecting right side. EF lower normal at 50% Fixed defect lateral wall base of heart Partially reversible defect caroline septal wall toward the apex may be due to breast attenuation vs ischemia Reversible defect anterior wall suggesting ischemia Correlate with ECG findings Conclusion: Patient unable to do Prone images due to prior stroke affecting right side. EF lower normal at 50% Fixed defect lateral wall base of heart Partially reversible defect caroline septal wall toward the apex may be due to breast attenuation vs ischemia Reversible defect anterior wall suggesting ischemia Correlate with ECG findings Electronically signed by : Jamison Jj MD 03/06/2021 11:11:49
--- NOTE | 2021-03-06 03:01 | PC.NURSE ---
Pt A&O x4 and has slept well this shift. NO c/o pain. Pt tolerated 2L NC, sats 95%, no SOA noted. L BKA CDI. 1+ pitting edema noted to RLE. Pt has been incontinent, purwick in place draining clear yellow urine. PT NPO since midnight. IV patent, SL.
[2021-03-06 05:55] LABS: POC Glucose,Bedside 163 (70-110)
[2021-03-06 07:48] LABS: Chloride 94 mmol/L (98-107); Potassium 4.3 mmoL/L (3.5-5.1); Sodium 136 mmol/L (136-145)
[2021-03-06 07:50] LABS: Blood Urea Nitrogen 21 mg/dl (7-17); Creatinine Clearance Estimated 80 mL/min (50-200); Estimated Glomerular Filt Rate 74 ml/min (>60); GFR (African American) 90 ML/MIN (>60)
[2021-03-06 07:51] LABS: Alanine Aminotransferase 13 U/L (12-78); Albumin Level 3.4 g/dl (3.5-5.0); Alkaline Phosphatase 84 U/L (38-126); Anion Gap 7.3 mEq/L (5-15); Aspartate Amino Transferase 21 U/L (14-36); Bilirubin,Direct 0.1 mg/dl (0.0-0.4); Bilirubin,Indirect 0.2 mg/dL (0.0-0.9); Bilirubin,Total 0.3 mg/dl (0.2-1.3); Bilirubin,Unconjugated 0.2 mg/dL (0.0-1.1); Calcium 8.6 mg/dl (8.4-10.2); Carbon Dioxide 39 mmol/L (22.0-30.0); Chol/HDL Ratio 2.5 (1-3.5); Cholesterol 173 mg/dl (140-200); Glucose 163 mg/dl (74-100); HDL Cholesterol 68 mg/dl (40-60); Total Protein,Serum 6.3 g/dl (6.3-8.2); Triglycerides 192 mg/dl (30-150); VLDL Cholesterol 38 mg/dL (0-40)
[2021-03-06 08:02] LABS: Direct LDL Cholesterol 59.08 mg/dL (100-129)
--- NOTE | 2021-03-06 11:08 | HMH.PNCARD ---
Subjective Date: 03/06/21 Time: 09:15 Principal diagnosis: chest pain Interval history: This is a 55-year-old white female who presented to the emergency department complaints of shortness of breath that had been progressively worsening over the last several days to about a week. Her symptoms got severe and she decided to come into the emergency department. Her shortness of breath is associated with chest pain in the substernal aspect of her chest. This does not radiate. And she was also having fluttering of the heart. This morning she states that she is still short of breath but this is slightly improved today with diuresis. She states that her chest pain and pressure have improved but she is still having some fluttering of the heart at times. She states that she feels extremely fatigued. She is able to lie a little more flat today than she was yesterday. She denies any fever, chills, nausea, vomiting, diarrhea. Exam Vital signs and Labs for Last 24 Hours: Temp Pulse Resp BP Pulse Ox 97.9 F 75 18 132/72 95 03/06/21 04:00 03/06/21 04:00 03/06/21 04:00 03/06/21 04:00 03/06/21 04:00 Laboratory Results - last 24 hr 03/05/21 11:13: POC Glucose 220 H 03/05/21 16:02: POC Glucose 271 H 03/05/21 19:45: POC Glucose 256 H 03/06/21 05:41: POC Glucose 163 H 03/06/21 07:05: Sodium 136, Potassium 4.3, Chloride 94 L, Carbon Dioxide 39 H, Anion Gap 7.3, BUN 21 H, Creatinine 0.80, Estimated Creat Clear 80, Estimated GFR 74, Est GFR ( Amer) 90, Glucose 163 H, Calcium 8.6, Total Bilirubin 0.3, Direct Bilirubin 0.1, Conjugated Bilirubin 0.0, Indirect Bilirubin 0.2, Unconjugated Bilirubin 0.2, AST 21, ALT 13, Alkaline Phosphatase 84, Total Protein 6.3, Albumin 3.4 L, Triglycerides 192 H, Cholesterol 173, LDL Cholesterol Direct 59.08 L, VLDL Cholesterol 38, HDL Cholesterol 68 H, Cholesterol/HDL Ratio 2.5 I & O for Last 24 hours: Intake & Output 03/03/21 03/04/21 03/05/21 03/06/21 23:59 23:59 23:59 23:59 Intake Total 480 / 480 1320 / 1320 2045 / 204 Output Total 700 / 700 1250 / 1850 1100 / 1100 Balance 480 / 480 620 / 620 796 / 196 -1100 / -1100 Weight 278 lb 2 oz 281 lb 4 oz 286 lb 9.615 oz 283 lb 7 oz Narrative: Lexiscan shows: Patient unable to do Prone images due to prior stroke affecting right side. EF lower normal at 50% Fixed defect lateral wall base of heart Partially reversible defect caroline septal wall toward the apex may be due to breast attenuation vs ischemia Reversible defect anterior wall suggesting ischemia Correlate with ECG findings - Constitutional no acute distress, morbidly obese, chronically ill appearing - *Routine HEENT Exam Head: Present: normocephalic, atraumatic Eye: Present: EOMI, PERRL ENT: Present: mucous membranes moist - *Routine Neck Exam Present: supple, full ROM, normal carotid upstroke. Absent: JVD, carotid bruit, lymphadenopathy - *Routine Respiratory Exam Present: CTA bilaterally - *Routine Cardiovascular Exam Present: RRR, Normal S1, Normal S2. Absent: murmur - *Routine Abdominal Exam Present: soft, normoactive bowel sounds. Absent: tenderness, distended - *Routine Extremities Exam Present: full ROM (Except right upper and lower extremity), pulses intact, normal capillary refill, amputation (Left below-knee amputee). Absent: cyanosis, clubbing, edema - *Routine Skin Exam Present: intact, warm. Absent: erythema, rash - *Routine Neurological Exam Present: alert, oriented X3, CN II-XII intact Right-sided hemiplegia status post CVA Progress Note: A&P (1) SOB (shortness of breath) Status: Acute (2) Angina pectoris Status: Acute (3) CAD (coronary artery disease) Status: Acute (4) CHF (congestive heart failure) Status: Acute (5) Diastolic dysfunction Status: Acute (6) HTN (hypertension) Status: Acute (7) Diabetes mellitus Status: Chronic (8) Hyperglycemia due to type 2 diabetes mellitus Status: Acute
[2021-03-06 12:16] LABS: POC Glucose,Bedside 171 (70-110)
--- NOTE | 2021-03-06 15:22 | HMH.ACPN2 ---
Internal Medicine - PN: Subj *Date: 03/07/21 *Time: 07:19 Interval history: pt with abn stress test today - Exam Vital signs and Labs for Last 24 Hours: Temp Pulse Resp BP Pulse Ox 98.6 F 81 18 145/67 H 95 03/06/21 15:06 03/06/21 15:06 03/06/21 15:06 03/06/21 15:06 03/06/21 15:06 Laboratory Results - last 24 hr 03/05/21 16:02: POC Glucose 271 H 03/05/21 19:45: POC Glucose 256 H 03/06/21 05:41: POC Glucose 163 H 03/06/21 07:05: Sodium 136, Potassium 4.3, Chloride 94 L, Carbon Dioxide 39 H, Anion Gap 7.3, BUN 21 H, Creatinine 0.80, Estimated Creat Clear 80, Estimated GFR 74, Est GFR ( Amer) 90, Glucose 163 H, Calcium 8.6, Total Bilirubin 0.3, Direct Bilirubin 0.1, Conjugated Bilirubin 0.0, Indirect Bilirubin 0.2, Unconjugated Bilirubin 0.2, AST 21, ALT 13, Alkaline Phosphatase 84, Total Protein 6.3, Albumin 3.4 L, Triglycerides 192 H, Cholesterol 173, LDL Cholesterol Direct 59.08 L, VLDL Cholesterol 38, HDL Cholesterol 68 H, Cholesterol/HDL Ratio 2.5 03/06/21 11:57: POC Glucose 171 H I & O for Last 24 hours: Intake & Output 03/04/21 03/05/21 03/06/21 03/07/21 11:59 11:59 11:59 11:59 Intake Total 840 / 840 2286 / 2286 720 / 720 360 / 360 Output Total 200 / 200 500 / 500 2350 / 2350 Balance 640 / 640 1786 / 1786 -1630 / -1630 360 / 360 Weight 281 lb 4 oz 286 lb 9.615 oz 283 lb 7 oz - Constitutional no acute distress - *Routine HEENT Exam Head: Present: normocephalic Eye: Present: EOMI, PERRL ENT: Present: mucous membranes dry - *Routine Neck Exam Present: supple - *Routine Respiratory Exam Absent: respiratory distress - *Routine Cardiovascular Exam Present: RRR - *Routine Abdominal Exam Present: soft - *Routine Extremities Exam Present: amputation - *Routine Skin Exam Present: intact - *Routine Neurological Exam Present: alert - Routine Psychiatric Exam Present: normal affect Assessment and Plan (1) SOB (shortness of breath) Status: Acute Category: Medical Code(s): R06.02 - Shortness of breath (2) Angina pectoris Status: Acute Category: Medical Code(s): I20.9 - Angina pectoris, unspecified (3) CAD (coronary artery disease) Status: Acute Qualifiers: Coronary Disease-Associated Artery/Lesion type: [place] artery [place] vs. transplanted heart: [place] heart Associated angina: unspecified whether angina present Qualified Code(s): I25.10 - Atherosclerotic heart disease of [place] coronary artery without angina pectoris Category: Medical Code(s): I25.10 - Atherosclerotic heart disease of [place] coronary artery without angina pectoris (4) CHF (congestive heart failure) Status: Acute Qualifiers: Heart failure type: unspecified Heart failure chronicity: acute Qualified Code(s): I50.9 - Heart failure, unspecified Category: Medical Code(s): I50.9 - Heart failure, unspecified (5) Diastolic dysfunction Status: Acute Category: Medical Code(s): I51.89 - Other ill-defined heart diseases (6) HTN (hypertension) Status: Acute Qualifiers: Hypertension type: essential hypertension Qualified Code(s): I10 - Essential (primary) hypertension Category: Medical Code(s): I10 - Essential (primary) hypertension (7) Diabetes mellitus Status: Chronic Qualifiers: Diabetes mellitus type: type 2 Diabetes mellitus fci insulin use: unspecified terminal makeup operator insulin use status Diabetes mellitus complication status: with other specified complication Qualified Code(s): E11.69 - Type 2 diabetes mellitus with other specified complication Category: Medical Code(s): E11.9 - Type 2 diabetes mellitus without complications (8) Hyperglycemia due to type 2 diabetes mellitus Status: Acute Category: Medical Code(s): E11.65 - Type 2 diabetes mellitus with hyperglycemia (9) COPD (chronic obstructive pulmonary disease) Status: Chronic Qualifiers: Category: Medical Code(s): J44.9 - Chronic obs
[2021-03-06 17:24] LABS: POC Glucose,Bedside 186 (70-110)
--- NOTE | 2021-03-06 17:59 | PC.NURSE ---
Pt has been pleasant and cooperative this shift. A&O X4. No complaints of pain or SOA. Lungs CTA. 1+ pitting edema noted to RLE. LT BKA noted. RT heel protector in place due to redness/soreness. Bilateral buttocks reddened and moisture barrier cream applied. Pt has been encouraged and assisted to turn/reposition Q2H. Pt is incontinent and purwick is draining clear, yellow urine without issue. 1 large, brown, soft BM this shift. Appetite is good and pt eats the majority of all meals. FSBS results have been 171 and 186. Pt was lifted OOB with a mechanical lift and placed in the recliner. Pt sat up for approximately 2 hours. NPO after midnight order is in place for tonight. LT heart catheterization consent has been signed and placed on chart. 22 G peripheral IV in the LT wrist is patent and SL. VSS. Call light within reach. Will continue to monitor.
[2021-03-06 20:44] LABS: POC Glucose,Bedside 256 (70-110)
[2021-03-07] VITALS (17 sets, daily range): BP systolic 106–147; BP diastolic 51–73; PULSE 73–90; RESP 16–20; TEMP 36.7–37; O2SAT 90–99; BMI 41.6
--- NOTE | 2021-03-07 | IR_ITS ---
APPROVED REPORT Patient Location: Inpatient PROCEDURES Left heart catheterization Left ventriculogram Selective coronary angiogram INDICATION Unstable angina Informed consent was obtained prior to the procedure. COMPLICATIONS None Estimated Blood Loss: Less than 10 mls TECHNIQUE One percent lidocaine used to anesthetize the right anterior aspect of the wrist. The right radial artery was accessed via the Seldinger technique. A 6 [place] sheath was placed in the right radial artery. 2.5 mg of verapamil, 800 mcg of nitroglycerin, 1mg Lidocaine and 5000 U Heparin were given through the arterial sheath. The trap catheter was also used to perform left heart catheterization, left ventriculogram and selective coronary angiogram. At the end of the procedure the sheath was removed good hemostasis was achieved using Traclet band, patient was transferred to the postop holding area in stable condition. ANGIOGRAPHIC RESULTS The left main artery Normal The left anterior descending artery Large with mild proximal and mid vessel 10% luminal irregularities The circumflex artery Large dominant with mild 10% luminal irregularities The right coronary artery Was not engaged due to its anterior takeoff. 2017 this vessel was vestigial and did not supply any of the left ventricle. The vessel had moderate 40% diffuse disease however the vessel was 1.5 mm in its maximum diameter The STRINGER ventriculogram reveals Not performed The left ventricular end-diastolic pressure Not measured IMPRESSION Patent coronary arteries as described above PLAN 1. Evaluate ejection fraction with echocardiogram 2. Empiric treatment for diastolic dysfunction 3. Patient would likely benefit from diuretics and weight loss Electronically signed by : Yasmani Contreras, 03/07/2021 14:25:29
--- NOTE | 2021-03-07 03:36 | PC.NURSE ---
No acute changes overnight. Pt has slept well, no c/o pain. Pt continues to be incontinent, purwick in place draining clear yellow urine. Lungs CTA, on 2L NC. Pt has had one BM this shift. NPO since midnight. R heel protector in place. Barrier cream applied to coccyx. IV patent, SL.
[2021-03-07 05:32] LABS: POC Glucose,Bedside 196 (70-110)
[2021-03-07 07:51] LABS: Chloride 94 mmol/L (98-107); Potassium 4.5 mmoL/L (3.5-5.1); Sodium 136 mmol/L (136-145)
[2021-03-07 07:54] LABS: Anion Gap 7.5 mEq/L (5-15); Blood Urea Nitrogen 27 mg/dl (7-17); Calcium 8.8 mg/dl (8.4-10.2); Carbon Dioxide 39 mmol/L (22.0-30.0); Creatinine Clearance Estimated 71 mL/min (50-200); Estimated Glomerular Filt Rate 65 ml/min (>60); GFR (African American) 79 ML/MIN (>60); Glucose 187 mg/dl (74-100)
--- NOTE | 2021-03-07 08:50 | HMH.PNCARD ---
Subjective Date: 03/07/21 Time: 08:35 Principal diagnosis: chest pain Interval history: This is a 55-year-old white female presented to the emergency department complaints of progressively worsening shortness of breath over approximately a week prior to admission. Her symptoms were severe when she came into the emergency department and she was also having associated chest pain as well as palpitations of the heart. Her shortness of breath has improved and she is able to lie flat today. The patient did undergo Myoview stress testing which was abnormal and she has been set up for left cardiac catheterization today. This morning she denies any chest pain or pressure. She is still complaining of racing of the heart intermittently and shortness of breath but it is much improved. She denies any lower extremity edema. She denies any fever, chills, nausea, vomiting, diarrhea, PND. Her orthopnea has resolved. Exam Vital signs and Labs for Last 24 Hours: Temp Pulse Resp BP Pulse Ox 98.5 F 81 17 116/56 L 93 L 03/07/21 04:00 03/07/21 06:18 03/07/21 04:00 03/07/21 04:00 03/07/21 06:18 Laboratory Results - last 24 hr 03/06/21 11:57: POC Glucose 171 H 03/06/21 16:58: POC Glucose 186 H 03/06/21 20:37: POC Glucose 256 H 03/07/21 05:07: POC Glucose 196 H 03/07/21 07:14: Sodium 136, Potassium 4.5, Chloride 94 L, Carbon Dioxide 39 H, Anion Gap 7.5, BUN 27 H D, Creatinine 0.90, Estimated Creat Clear 71, Estimated GFR 65, Est GFR ( Amer) 79, Glucose 187 H, Calcium 8.8 I & O for Last 24 hours: Intake & Output 03/04/21 03/05/21 03/06/21 03/07/21 23:59 23:59 23:59 23:59 Intake Total 1320 / 1320 2046 / 2046 840 / 840 Output Total 700 / 700 1250 / 1850 1675 / 1675 200 / 200 Balance 620 / 620 796 / 196 -835 / -835 -200 / -200 Weight 281 lb 4 oz 286 lb 9.615 oz 283 lb 7 oz 281 lb 8 oz - Constitutional no acute distress, morbidly obese - *Routine HEENT Exam Head: Present: normocephalic, atraumatic Eye: Present: EOMI, PERRL ENT: Present: mucous membranes moist - *Routine Neck Exam Present: supple, full ROM, normal carotid upstroke. Absent: JVD, carotid bruit, lymphadenopathy - *Routine Respiratory Exam Present: wheezes (Expiratory wheezing noted throughout) - *Routine Cardiovascular Exam Present: RRR, Normal S1, Normal S2. Absent: murmur - *Routine Abdominal Exam Present: soft, normoactive bowel sounds. Absent: tenderness, distended - *Routine Extremities Exam Present: full ROM (Except right upper and lower extremities), pulses intact, normal capillary refill, amputation (Left lower extremity below the knee amputee). Absent: cyanosis, clubbing, edema - *Routine Skin Exam Present: intact, warm. Absent: erythema, rash - *Routine Neurological Exam Present: alert, oriented X3, CN II-XII intact Progress Note: A&P (1) SOB (shortness of breath) Status: Acute (2) Angina pectoris Status: Acute (3) CAD (coronary artery disease) Status: Acute (4) CHF (congestive heart failure) Status: Acute (5) Diastolic dysfunction Status: Acute (6) HTN (hypertension) Status: Acute (7) Diabetes mellitus Status: Chronic (8) Hyperglycemia due to type 2 diabetes mellitus Status: Acute (9) COPD (chronic obstructive pulmonary disease) Status: Chronic (10) Hyperlipidemia Status: Chronic (11) Peripheral arterial occlusive disease Status: Chronic (12) Abnormal nuclear stress test Status: Acute Assessment and Plan for All Diagnoses:: Plan: 1. The patient was admitted to the hospital with progressively worsening shortness of breath and chest pain. She had a CTA of the chest which showed severe coronary calcifications. The patient underwent Myoview stress testing yesterday which was abnormal, this showed reversible ischemia in the anterior wall. She has been set up for left cardiac catheterization today to evaluate her coronary artery disease. 2. The patient has been edu
--- NOTE | 2021-03-07 08:58 | PC.NURSE ---
verified with odd job laborer to go ahead and give patient xarelto. patient is incontinent of urine. will hold lasix until after procedure.
--- NOTE | 2021-03-07 09:35 | HMH.ACPN ---
Internal Medicine - PN: Subj *Date: 03/07/21 *Time: 09:35 Exam Vital signs and Labs for Last 24 Hours: Temp Pulse Resp BP Pulse Ox 98.6 F 84 18 120/60 94 L 03/07/21 08:00 03/07/21 08:00 03/07/21 08:00 03/07/21 08:00 03/07/21 08:00 Laboratory Results - last 24 hr 03/06/21 11:57: POC Glucose 171 H 03/06/21 16:58: POC Glucose 186 H 03/06/21 20:37: POC Glucose 256 H 03/07/21 05:07: POC Glucose 196 H 03/07/21 07:14: Sodium 136, Potassium 4.5, Chloride 94 L, Carbon Dioxide 39 H, Anion Gap 7.5, BUN 27 H D, Creatinine 0.90, Estimated Creat Clear 71, Estimated GFR 65, Est GFR ( Amer) 79, Glucose 187 H, Calcium 8.8 I & O for Last 24 hours: Intake & Output 03/04/21 03/05/21 03/06/21 03/07/21 23:59 23:59 23:59 23:59 Intake Total 1320 / 1320 2046 / 2046 840 / 840 Output Total 700 / 700 1250 / 1850 1675 / 1675 200 / 200 Balance 620 / 620 796 / 196 -835 / -835 -200 / -200 Weight 127.573 kg 130 kg 128.565 kg 127.686 kg Assessment and Plan (1) SOB (shortness of breath) Status: Acute Category: Medical Code(s): R06.02 - Shortness of breath (2) Angina pectoris Status: Acute Category: Medical Code(s): I20.9 - Angina pectoris, unspecified (3) CAD (coronary artery disease) Status: Acute Qualifiers: Coronary Disease-Associated Artery/Lesion type: [place] artery [place] vs. transplanted heart: [place] heart Associated angina: unspecified whether angina present Qualified Code(s): I25.10 - Atherosclerotic heart disease of [place] coronary artery without angina pectoris Category: Medical Code(s): I25.10 - Atherosclerotic heart disease of [place] coronary artery without angina pectoris (4) CHF (congestive heart failure) Status: Acute Qualifiers: Heart failure type: unspecified Heart failure chronicity: acute Qualified Code(s): I50.9 - Heart failure, unspecified Category: Medical Code(s): I50.9 - Heart failure, unspecified (5) Diastolic dysfunction Status: Acute Category: Medical Code(s): I51.89 - Other ill-defined heart diseases (6) HTN (hypertension) Status: Acute Qualifiers: Hypertension type: essential hypertension Qualified Code(s): I10 - Essential (primary) hypertension Category: Medical Code(s): I10 - Essential (primary) hypertension (7) Diabetes mellitus Status: Chronic Qualifiers: Diabetes mellitus type: type 2 Diabetes mellitus prison insulin use: unspecified prison insulin use status Diabetes mellitus complication status: with other specified complication Qualified Code(s): E11.69 - Type 2 diabetes mellitus with other specified complication Category: Medical Code(s): E11.9 - Type 2 diabetes mellitus without complications (8) Hyperglycemia due to type 2 diabetes mellitus Status: Acute Category: Medical Code(s): E11.65 - Type 2 diabetes mellitus with hyperglycemia (9) COPD (chronic obstructive pulmonary disease) Status: Chronic Qualifiers: Category: Medical Code(s): J44.9 - Chronic obstructive pulmonary disease, unspecified (10) Hyperlipidemia Status: Chronic Qualifiers: Hyperlipidemia type: mixed hyperlipidemia Qualified Code(s): E78.2 - Mixed hyperlipidemia Category: Medical Code(s): E78.5 - Hyperlipidemia, unspecified (11) Peripheral arterial occlusive disease Status: Chronic Category: Medical Code(s): I77.9 - Disorder of arteries and arterioles, unspecified (12) Abnormal nuclear stress test Status: Acute Category: Medical Code(s): R94.39 - Abnormal result of other cardiovascular function study The patient's infection will respond to the chosen ABx?: Yes (EMPIRIC POST OP ABX) Is the patient receiving the right drug, dose, and route?: Yes Could a more targeted ABx be ordered?: No 14 (14 DAYS TOTAL-LD 03/09)
--- NOTE | 2021-03-07 15:33 | HMH.DCSUM ---
General - General Admission date:: 03/03/21 Discharge date: 03/07/21 HPI HPI: this patient reports she has been progressive sob over the last few weeks - no fever - had been vaping but has stopped , no recent tob use - occ chest pain - pt was seen in the ed 5yo F with complicated past medical history significant for multiple strokes, diabetes with poor glycemic control, status post left lower extremity amputation and recent bloodstream infection reports emergency department secondary to shortness of breath. Patient reports has been ongoing for approximately a week and progressively worsening. She reports undergoing a heart catheterization with Dr. Contreras in the past for which no intervention was necessary. She did have peripheral stenting due to peripheral vascular disease. She denies fever, nausea/vomiting/diarrhea. Patient reports she recently had negative blood work for signs of bacteremia but continues on antibiotics at the instruction of her specialist/surgeon. She denies any history of congestive heart failure. She states her symptoms are worse when she attempts to lie flat. She states she has to sleep at an incline in order to feel like she is breathing well. pt was admitted for eval and treatment Hospital Course Hospital Course: 55-year-old female patient presented to the emergency department with increasing shortness of breath over the last several weeks, she denies any fever. She does report she has had occasional chest pain and does have a complicated medical history including multiple strokes, will control of her diabetes, left BKA, and a recent bloodstream infection. She does report she has had to start sleeping in a recliner for better respirations. Troponins negative x3 CTA of the chest which showed severe coronary calcifications. The patient underwent Myoview stress testing yesterday which was abnormal, this showed reversible ischemia in the anterior wall. She has been set up for left cardiac catheterization today to evaluate her coronary artery disease. 03/07/21:[facility] shows: The left main artery Normal The left anterior descending artery Large with mild proximal and mid vessel 10% luminal irregularities The circumflex artery Large dominant with mild 10% luminal irregularities The right coronary artery Was not engaged due to its anterior takeoff. 2017 this vessel was vestigial and did not supply any of the left ventricle. The vessel had moderate 40% diffuse disease however the vessel was 1.5 mm in its maximum diameter The STRINGER ventriculogram reveals Not performed The left ventricular end-diastolic pressure Not measured IMPRESSION Patent coronary arteries as described above Cards has seen and rec: PLAN 1. Evaluate ejection fraction with echocardiogram 2. Empiric treatment for diastolic dysfunction 3. Patient would likely benefit from diuretics and weight loss EF was 50% on echo this week. Will convert patient to oral lasix. okay to discharge home from cardiac standpoint. follow up in cardiology clinic is 1-2 weeks. 55-year-old female patient lying in bed resting quietly she denies any further chest pain or shortness of breath. She has tolerated a regular diet, discussed discharged home and importance of keeping follow-up appointments she verbalizes understanding is in agreement to being discharged. Plan: 1. We will discharge home 2. Follow-up cardiology 1 to 2 weeks 3. Follow-up with primary care in 1 to 2 weeks 4. Lasix 40 mg p.o. twice daily Objective Vital signs: Temp Pulse Resp BP Pulse Ox 98.1 F 84 20 118/70 97 03/07/21 12:00 03/07/21 12:00 03/07/21 12:00 03/07/21 12:00 03/07/21 12:00 no acute distress, morbidly obese - *Routine HEENT Exam Head: Present: normocephalic Eye: Present: EOMI ENT: Present: mucous membranes moist - *Routine Neck Exam Present: trachea midline. Absent: tracheal deviation - *Routine Resp
--- NOTE | 2021-03-07 16:41 | PC.NURSE ---
patient has slept most of shift. she is easy to arouse but has been resting. did eat a sandwich and chi[ps after procedure. no complaints. continues to be incontinent with use of purwick. when she removed oxygen and fell asleep noted o2 sats in the 70s. md made aware of patient unable to leave tonight. will cancel discharge order. no signs of bleeding as of now but tracelet remains on patient wrist. rings out as needed. vitals stable.
[2021-03-07 18:17] LABS: POC Glucose,Bedside 182 (70-110)
[2021-03-07 18:17] LABS: POC Glucose,Bedside 182 (70-110)
[2021-03-08] VITALS: BP 147/69; PULSE 79; PULSE 80; RESP 16; TEMP 36.8; O2SAT 93
[2021-03-08 01:07] LABS: POC Glucose,Bedside 279 (70-110)
[2021-03-08 04:00] VITALS: BP 121/63; PULSE 80; PULSE 82; RESP 17; TEMP 36.6; O2SAT 92
--- NOTE | 2021-03-08 04:06 | PC.NURSE ---
shift summary pts lung sounds are clear with sats maintained 90% or above on 2Lpm via NC, with a rate ranging from 16-20. pts tracelet was removed with no complications, dressing was applied and there has been no drainage or discharge.pt voids per a purewick urine is cloudy and yellow in color. pt denies pain, nausea, vomiting, or diarrhea.
[2021-03-08 05:33] LABS: POC Glucose,Bedside 197 (70-110)
[2021-03-08 06:00] VITALS: BMI 41.8
[2021-03-08 07:44] VITALS: BP 106/58; PULSE 79; RESP 19; TEMP 36.8; O2SAT 94
[2021-03-08 08:10] LABS: Chloride 92 mmol/L (98-107); Potassium 4.6 mmoL/L (3.5-5.1); Sodium 134 mmol/L (136-145)
[2021-03-08 08:13] LABS: Anion Gap 9.6 mEq/L (5-15); Blood Urea Nitrogen 25 mg/dl (7-17); Calcium 9.3 mg/dl (8.4-10.2); Carbon Dioxide 37 mmol/L (22.0-30.0); Creatinine Clearance Estimated 58 mL/min (50-200); Estimated Glomerular Filt Rate 52 ml/min (>60); GFR (African American) 62 ML/MIN (>60); Glucose 157 mg/dl (74-100)
[2021-03-08 08:18] LABS: Basophils # 0.1 K/mm3 (0-0.2); Basophils % 0.5 % (0.1-2.0); Eosinophils # 0.3 K/mm3 (0.0-0.4); Eosinophils % 3.6 % (0.1-12.0); Hematocrit 37.6 % (37.0-47.0); Hemoglobin 11.3 g/dL (12.2-16.2); Lymphocytes # 2.4 K/mm3 (0.7-4.5); Mean Corpuscular HGB Conc 30.1 g/dL (31.8-35.4); Mean Corpuscular Hemoglobin 27.2 pg (27.0-31.2); Mean Corpuscular Volume 90.3 fl (81-99); Monocytes # 0.6 K/mm3 (0.1-1.0); Monocytes % 6.4 % (1.7-9.3); Neutrophils # 5.9 K/mm3 (1.8-7.8); Neutrophils % 63.4 % (37.0-80.0); Platelet Count 211 K/mm3 (142-424); Red Blood Count 4.16 M/mm3 (4.20-5.40); Red Cell Distribution Width 15.6 % (11.5-17.5); White Blood Count 9.3 K/mm3 (4.8-10.8)
--- NOTE | 2021-03-08 10:02 | SW/DCPLANNER ---
The plan is for this patient to discharge home today. Patient stated that she resides at home with family and has all appropriate DME needed at home. Patient stated that she has no further needs at this time.
[2021-03-08 10:42] VITALS: BP 138/59; PULSE 80; RESP 18; TEMP 36.8; O2SAT 96
== END 2021-03-08 11:50 | disposition home or self-care (01) ==
LOC: ER 14:53 → 2ND 15:21
PROVIDERS: Internal Medicine; Nurse Practitioner Family; Admitting Provider Internal Medicine Adolescent Medicine; Emergency Provider Family Medicine; PCP Physician Assistant; Visit Provider Emergency Medicine
DX: I25.110 Atherosclerotic heart disease of native coronary artery with unstable angina pectoris (principal); I11.0 Hypertensive heart disease with heart failure; I50.9 Heart failure, unspecified; I69.351 Hemiplegia and hemiparesis following cerebral infarction affecting right dominant side; Z68.41 Body mass index [BMI] 40.0-44.9, adult; L97.501 Non-pressure chronic ulcer of other part of unspecified foot limited to breakdown of skin; E11.621 Type 2 diabetes mellitus with foot ulcer; Z95.820 Peripheral vascular angioplasty status with implants and grafts; Z79.4 Long term (current) use of insulin; Z79.899 Other long term (current) drug therapy; E03.9 Hypothyroidism, unspecified; J44.9 Chronic obstructive pulmonary disease, unspecified; Z95.5 Presence of coronary angioplasty implant and graft; E66.01 Morbid (severe) obesity due to excess calories
CPT/HCPCS: 36415; 71045; 71275; 78452; 80048; 80061; 80076; 82947; 82962; 83735; 83880; 84436; 84443; 84484; 85025; 87581; 87633; 87798; 93005; 93017; 93306; 93308; 93458; 94640; 94760; 96374; 96375; 99152; 99153; 99284; A9502; C1725; C1760; C1769; G0378; J1642; J1644; J2785; Q9967

== ENCOUNTER → 2021-04-26 11:24 | Outpatient (CLI) | payer MEDICARE, MEDICAID, SELFPAY ==
[2021-04-26 14:12] LABS: Basophils # 0.1 K/mm3 (0-0.2); Basophils % 0.7 % (0.1-2.0); Eosinophils # 0.4 K/mm3 (0.0-0.4); Eosinophils % 4.1 % (0.1-12.0); Hemoglobin 10.5 g/dL (12.2-16.2); Lymphocytes # 1.6 K/mm3 (0.7-4.5); Mean Corpuscular HGB Conc 29.1 g/dL (31.8-35.4); Mean Corpuscular Hemoglobin 26.9 pg (27.0-31.2); Mean Corpuscular Volume 92.4 fl (81-99); Mean Platelet Volume 8.8 fl (7.4-10.4); Monocytes # 0.6 K/mm3 (0.1-1.0); Monocytes % 6.2 % (1.7-9.3); Neutrophils # 6.7 K/mm3 (1.8-7.8); Platelet Count 336 K/mm3 (142-424); Red Blood Count 3.89 M/mm3 (4.20-5.40); White Blood Count 9.3 K/mm3 (4.8-10.8)
[2021-04-26 14:19] LABS: Iron 49 ug/dL (37-170)
[2021-04-26 14:29] LABS: Total Iron Binding Capacity 356 ug/dL (265-497)
[2021-04-26 14:55] LABS: Ferritin 15.3 ng/ml (11.1-264)
== END ==
PROVIDERS: Visit Provider Emergency Medicine
DX: R55 Syncope and collapse (principal)
CPT/HCPCS: 82728; 83540; 83550; 85025

== ENCOUNTER 2021-04-27 23:22 | Inpatient (IN) | payer MEDICARE, MEDICAID, SELFPAY ==
--- NOTE | 2021-04-27 23:09 | ECG_ITS ---
APPROVED REPORT Exam: Resting ECG HR:82 bpm ECG Measurements Heart Rate 82 AXES NC 164 P 52 QRSd 102 QRS 28 QT 404 T 34 QTc 472 Conclusion Normal sinus rhythm Normal ECG Electronically signed by : Jimenez Suárez, 04/28/2021 07:11:58
[2021-04-27 23:19] VITALS: BP 113/57; PULSE 79; RESP 18; TEMP 36.6; O2SAT 87; BMI 69.5
[2021-04-27 23:20] VITALS: BMI 69.5
--- NOTE | 2021-04-27 23:21 | XR_ITS ---
PROCEDURE INFORMATION: Exam: XR Chest Exam date and time: 04/27/2021 11:21 PM Age: 55 years old Clinical indication: Other: Weakness TECHNIQUE: Imaging protocol: XR of the chest. Views: 1 view. COMPARISON: CR XR CHEST PORTABLE 03/03/2021 1:55 PM FINDINGS: Lungs: The lungs appear clear. There is mild stable elevation of the left hemidiaphragm. No focal areas of consolidation. Pleural spaces: No pleural effusions or appreciable adenopathy. Negative for pneumothorax. Heart/Mediastinum: Cardiac silhouette and pulmonary vasculature are within range of normal. Mild atherosclerotic vascular calcifications involve the aortic arch. Bones/joints: There is no evidence of acute fracture. IMPRESSION: Negative for an acute cardiopulmonary abnormality.
[2021-04-27 23:30] VITALS: BP 124/66; PULSE 84; O2SAT 92
[2021-04-27 23:34] LABS: Basophils # 0.1 K/mm3 (0-0.2); Basophils % 0.7 % (0.1-2.0); Eosinophils # 0.4 K/mm3 (0.0-0.4); Eosinophils % 4.2 % (0.1-12.0); Hematocrit 35.6 % (37.0-47.0); Hemoglobin 11.1 g/dL (12.2-16.2); Lymphocytes # 2.5 K/mm3 (0.7-4.5); Lymphocytes % 26.8 % (10-50); Mean Corpuscular HGB Conc 31.3 g/dL (31.8-35.4); Mean Corpuscular Hemoglobin 27.5 pg (27.0-31.2); Mean Corpuscular Volume 87.9 fl (81-99); Mean Platelet Volume 9.2 fl (7.4-10.4); Monocytes # 0.5 K/mm3 (0.1-1.0); Monocytes % 5.4 % (1.7-9.3); Neutrophils # 5.9 K/mm3 (1.8-7.8); Neutrophils % 62.9 % (37.0-80.0); Platelet Count 345 K/mm3 (142-424); Red Blood Count 4.05 M/mm3 (4.20-5.40); Red Cell Distribution Width 16.4 % (11.5-17.5); White Blood Count 9.3 K/mm3 (4.8-10.8)
[2021-04-27 23:41] LABS: Alanine Aminotransferase 17 U/L (12-78); Albumin Level 3.9 g/dl (3.5-5.0); Albumin/Globulin Ratio 1.2 (1.1-1.8); Alkaline Phosphatase 165 U/L (38-126); Anion Gap 12.4 mEq/L (5-15); Aspartate Amino Transferase 22 U/L (14-36); Bilirubin,Total 0.3 mg/dl (0.2-1.3); Blood Urea Nitrogen 29 mg/dl (7-17); Calcium 8.9 mg/dl (8.4-10.2); Chloride 85 mmol/L (98-107); Creatinine Clearance Estimated 50 mL/min (50-200); Estimated Glomerular Filt Rate 58 ml/min (>60); GFR (African American) 70 ML/MIN (>60); Globulin 3.3 g/dL (1.3-3.2); Potassium 4.4 mmoL/L (3.5-5.1); Sodium 133 mmol/L (136-145); Total Protein,Serum 7.2 g/dl (6.3-8.2)
[2021-04-27 23:45] LABS: ABG HCO3 35.5 mmhg (22.0-26.0); ABG Oxygen Saturation 92 % (90-100); ABG PH 7.42 mmol/L (7.35-7.45); ABG PO2 64.7 mmhg (80-100); ABG TCO2 37.2 mmhg (23-27)
[2021-04-27 23:45] LABS: Carbon Dioxide 40 mmol/L (22.0-30.0)
[2021-04-27 23:46] LABS: Glucose 536 mg/dl (74-100)
[2021-04-27 23:47] LABS: Allen's Test Acceptable; Oxygen 28 %; Source Left Radial
[2021-04-27 23:48] LABS: Coronavirus 19, PCR Not Detected (NotDetected); Influenza A, PCR Not Detected (NotDetected); Influenza B, PCR Not Detected (NotDetected); Microscopic, Urine URINE MICROSCOPIC (MICROSCOPIC)
--- NOTE | 2021-04-27 23:50 | PC.NURSE ---
Notified of ABG results
[2021-04-27 23:51] LABS: Appearance,Urine CLOUDY (Clear); Bilirubin,Urine Negative (Negative); Blood, Urine Negative (Negative); Color,Urine YELLOW (Yellow); Glucose,Urine (UA) 3+ (Negative); Ketones,Urine Negative (Negative); Leukocyte Esterase,Urine 1+ (Negative); Nitrate,Urine POSITIVE (Negative); Protein,Urine TRACE (Negative); Specific Gravity, Urine 1.015 (1.005-1.030); Urobilinogen,Urine 0.2 EU/dl (0.2)
[2021-04-27 23:55] LABS: NT Pro Brain Natriuretic Pep. 43.7 pg/mL (0-125)
[2021-04-27 23:57] LABS: Troponin I < 0.01 ng/ml (0.00-0.034)
[2021-04-27 23:58] LABS: Bacteria,Urine 4+ /lpf; Squamous Epithelial Cell,Urine Occasional #/hpf (0-5); WBC,Urine 20-50 #/hpf (0-3)
[2021-04-28] VITALS (16 sets, daily range): BP systolic 99–136; BP diastolic 55–77; PULSE 75–89; RESP 16–18; TEMP 36.6–36.7; O2SAT 94–98; BMI 69.9
[2021-04-28] LABS: Erythrocyte Sedimentation Rate 120 mm/hr (0-30); Procalcitonin 0.092 ng/mL (0.0-2.0)
[2021-04-28 00:19] LABS: Acetone, Serum (Rapid) None Detected (None Detect)
--- NOTE | 2021-04-28 00:52 | HMH.EDSYNC ---
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 transplanted heart: [place] heart Associated angina: unspecified whether angina present Qualified Code(s): I25.10 - Atherosclerotic heart disease of [place] coronary artery without angina pectoris UTI (urinary tract infection) Qualifiers: Urinary tract infection type: site unspecified Hematuria presence: without hematuria Qualified Code(s): N39.0 - Urinary tract infection, site not specified Obesity Qualifiers: Obesity type: due to excess calories Obesity classification: adult class 3 (BMI >= 40) Serious obesity comorbidity presence: with serious comorbidity Body mass index: BMI 60.0-69.9 Qualified Code(s): E66.01 - Morbid (severe) obesity due to excess calories; Z68.44 - Body mass index [BMI] 60.0-69.9, adult Hypothyroidism Qualifiers: Hypothyroidism type: acquired Qualified Code(s): E03.9 - Hypothyroidism, unspecified Disposition: Admitted As Inpatient Condition on Discharge: Fair Instructions: DI for Syncope in Adults (Fainting), DI for Syncope in Children (Fainting) Referrals: Sameer Patterson MD [Primary Care Provider] - - Critical Care Critical Care Time: No Attestation: On 04/27/21, the high probability of a clinically significant, sudden or life threatening deterioration of the following system(s) required my full and direct attention, intervention and personal management. The time I documented below is in addition to time spent performing reported procedures but includes the following listed in this critical care notation. Medical Decision Making - Medical Records Medical records reviewed: Yes: I reviewed the patient's medical records. - Edgar Inquiry Pt receiving controlled substance: No Vital Signs: 04/27/21 23:19 04/27/21 23:30 04/28/21 00:00 Temperature 97.9 F Temperature Source Oral Pulse Rate 84 76 Pulse Rate [Right] 79 Respiratory Rate 18 Blood Pressure 124/66 128/58 L Blood Pressure [Right Arm] 113/57 L Blood Pressure Mean Blood Pressure Mean [Right Arm] 75 Blood Pressure Source [Right Arm] Automatic Cuff 02 Sat by Pulse Oximetry 87 L 92 L 95 Oxygen Delivery Method Room Air Oxygen Flow Rate (LPM) 04/28/21 00:31 04/28/21 01:00 04/28/21 01:30 Temperature Temperature Source Pulse Rate 78 77 77 Pulse Rate [Right] Respiratory Rate Blood Pressure 130/58 L 117/58 L 124/62 Blood Pressure [Right Arm] Blood Pressure Mean Blood Pressure Mean [Right Arm] Blood Pressure Source [Right Arm] 02 Sat by Pulse Oximetry 97 94 L 95 Oxygen Delivery Method Oxygen Flow Rate (LPM) 04/28/21 02:00 04/28/21 02:31 04/28/21 03:01 Temperature Temperature Source Pulse Rate 77 77 78 Pulse Rate [Right] Respiratory Rate Blood Pressure 136/69 118/77 107/57 L Blood Pressure [Right Arm] Blood Pressure Mean 92 75 Blood Pressure Mean [Right Arm] Blood Pressure Source [Right Arm] 02 Sat by Pulse Oximetry 95 94 L 95 Oxygen Delivery Method Nasal Cannula Oxygen Flow Rate (LPM) 2 04/28/21 03:30 04/28/21 04:00 04/28/21 04:31 Temperature Temperature Source Pulse Rate 77 76 75 Pulse Rate [Right] Respiratory Rate Blood Pressure 110/57 L 128/65 128/62 Blood Pressure [Right Arm] Blood Pressure Mean 74 86 94 Blood Pressure
[2021-04-28 01:11] LABS: POC Glucose,Bedside 467 (70-110)
[2021-04-28 02:04] LABS: POC Glucose,Bedside 409 (70-110)
[2021-04-28 02:44] LABS: Troponin I < 0.01 ng/ml (0.00-0.034)
--- NOTE | 2021-04-28 04:13 | PC.NURSE ---
Pt's sister, Ольга, is pt's POA and left her contact info of [phone]
--- NOTE | 2021-04-28 05:07 | PC.NURSE ---
Pt's sister updated on POC.
--- NOTE | 2021-04-28 05:08 | PC.NURSE ---
spoke with Michelle fernandes to notified that pt is being admitted
[2021-04-28 06:04] LABS: T4 (Thyroxine) 12.8 ug/dl (5.53-11.0)
[2021-04-28 06:17] LABS: Thyroid Stimulating Hormone 0.37 uIU/mL (0.465-4.68)
[2021-04-28 06:18] LABS: Troponin I < 0.01 ng/ml (0.00-0.034)
--- NOTE | 2021-04-28 06:25 | PC.NURSE ---
PT ARRIVED TO FLOOR VIA STRETCHER FROM ED W/STAFF AT [id number]
[2021-04-28 06:55] LABS: Basophils # 0.1 K/mm3 (0-0.2); Basophils % 0.9 % (0.1-2.0); Eosinophils # 0.5 K/mm3 (0.0-0.4); Eosinophils % 5.1 % (0.1-12.0); Hematocrit 32.2 % (37.0-47.0); Hemoglobin 10.4 g/dL (12.2-16.2); Lymphocytes # 2.3 K/mm3 (0.7-4.5); Lymphocytes % 25.3 % (10-50); Mean Corpuscular HGB Conc 32.2 g/dL (31.8-35.4); Mean Corpuscular Hemoglobin 28.2 pg (27.0-31.2); Mean Corpuscular Volume 87.6 fl (81-99); Mean Platelet Volume 9.2 fl (7.4-10.4); Monocytes # 0.5 K/mm3 (0.1-1.0); Monocytes % 5.8 % (1.7-9.3); Neutrophils # 5.7 K/mm3 (1.8-7.8); Neutrophils % 62.9 % (37.0-80.0); Platelet Count 330 K/mm3 (142-424); Red Blood Count 3.68 M/mm3 (4.20-5.40); Red Cell Distribution Width 16.3 % (11.5-17.5)
[2021-04-28 06:56] LABS: Chloride 94 mmol/L (98-107); Potassium 4.6 mmoL/L (3.5-5.1); Sodium 136 mmol/L (136-145)
[2021-04-28 06:59] LABS: Anion Gap 10.6 mEq/L (5-15); Blood Urea Nitrogen 27 mg/dl (7-17); Calcium 8.7 mg/dl (8.4-10.2); Carbon Dioxide 36 mmol/L (22.0-30.0); Estimated Glomerular Filt Rate 87 ml/min (>60); GFR (African American) 105 ML/MIN (>60); Glucose 312 mg/dl (74-100); Magnesium 1.7 mg/dl (1.6-2.3); POC Glucose,Bedside 318 (70-110)
[2021-04-28 07:06] LABS: Creatinine Clearance Estimated 69 mL/min (50-200)
--- NOTE | 2021-04-28 08:25 | HMH.HP ---
*Admission Date: 04/28/21 *Chief complaint: syncope *History of present illness: this pt presented from f with several episodes of syncope - pt has sig hx of prev cva and diabetes mellitus -pt was seen in the ed with abn u/a and was admitted with ivf and abx - H History I have reviewed the patient's past medical history: Yes Medical History: Reports:: Anxiety, Atherosclerotic Heart Disease, Congestive Heart Failure, Chronic Obstructive Pulmonary Disease (COPD), Coronary Artery Disease, Cerebrovascular Accident, Depression, Diabetes Mellitus Type 2, Hyperlipidemia, Hypertension, Peripheral Artery Disease, Peripheral Vascular Disease Denies:: Cancer, Diabetes Mellitus Type 1, Internal Pacemaker, MRSA, Seizures *Have you ever received a pneumonia vaccine?: Yes *Have you received a flu vaccine this season?: Yes Other Medical History: Reports: Cataracts, Hypothyroidism, Thyroid Disease. Denies: Blood Transfusion Reaction Laterality Cases: Bilateral: Other Other Surgeries: Yes: Cardiac Catheterization, Cardiac Surgery, Colonoscopy, Coronary Stent, Thyroidectomy, Tubal Ligation, Other. No: Pacemaker Amputation: Yes (Toe left big, L BELOW THE KNEE) Fractures: No - *Social History Smoking Status: Current every day smoker Tobacco Type: cigarettes # Packs/Day (cigarettes): 1 #Yrs smoked (if former smoker): 30 Alcohol Intake: never Substance Use Type: denies use *Occupational Status:: disabled Housing: house Household Members: family *Travel in the last 8 weeks: None - Psychiatric History Pschychiatric History:: Reports:: Anxiety, Depression Family Hx:: Unable to obtain Review of Systems - Review of Systems Review of systems:: pertinent systems reviewed and negative unless documented below - Constitutional Reports weakness, Denies fever(s) - Eyes Denies change in vision - ENT Denies sore throat - *Cardiovascular Denies chest pain - *Respiratory Denies cough - *Gastrointestinal Denies abdominal pain - *Genitourinary Denies blood in urine - *Musculoskeletal Denies joint pain - Integumentary/Breasts Denies rash - *Neurologic Reports weakness, Denies confusion, Denies localized weakness, Denies headache(s), Denies seizure-like activity Meds Home Medications Medication Instructions Recorded Confirmed Type acetaminophen 500 mg tablet 1,000 mg PO Q6HP PRN #120 tab 12/11/20 04/27/21 Rx melatonin 3 mg tablet 3 mg PO HS #90 tab 12/11/20 04/27/21 Rx rivaroxaban 2.5 mg tablet 2.5 mg PO BID #180 tab 12/11/20 04/27/21 Rx Buspirone HCl [Buspar 10mg 15 mg PO TID 01/11/21 04/27/21 History tablet] albuterol sulfate 90 mcg/actuation 2 puff INHALATION Q4HP PRN #6.7 g 02/12/21 04/27/21 Rx aerosol inhaler amlodipine 10 mg tablet 10 mg PO DAILY #90 tab 02/15/21 04/27/21 Rx aspirin 81 mg chewable tablet 81 mg PO DAILY #90 tab 02/15/21 04/27/21 Rx atorvastatin 80 mg tablet 80 mg PO HS #90 tab 02/15/21 04/27/21 Rx lisinopril 10 mg tablet 10 mg PO DAILY #90 tab 02/15/21 04/27/21 Rx sitagliptin 100 mg tablet 100 mg PO DAILY #90 tab 02/15/21 04/27/21 Rx duloxetine 60 mg capsule,delayed 60 mg PO DAILY #90 cap 03/02/21 04/27/21 Rx release Insulin Glargine,Hum.rec.anlog 10 unit SQ HS 03/03/21 04/27/21 History [Lantus Solostar 100 Units/mL 3mL flexpen] Nystatin [Nystatin Cr 100,000 1 applic TOPICAL BID 03/03/21 04/27/21 History Units/GM 30GM] Insulin Aspart Prot/Insuln Asp 20 units SQ BID 03/04/21 04/27/21 History [Novolog Mix 70/30 Flexpen 100 Units/mL 3mL] gabapentin 600 mg tablet 600 mg PO QID #120 tab 03/16/21 04/27/21 Rx clonazepam 0.5 mg tablet 0.5 mg PO TID #90 tab 04/18/21 04/27/21 Rx Budesonide/Formoterol Fumarate See Rx Instructions .ROUTE .COMPLEX 04/27/21 04/27/21 History [Budesonide-Formoterol 160-4.5] Furosemide [Lasix 40mg tablet] 40 mg PO BIDL 04/27/21 04/27/21 History Levothyroxine Sodium [Synthroid See Rx Instructions .ROUTE .COMPLEX 04/27/21 04/27/21 History 150mcg (0.15mg) t
[2021-04-28 12:00] LABS: POC Glucose,Bedside 277 (70-110)
--- NOTE | 2021-04-28 14:44 | HMH.PHAVTE ---
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) (Acute) Hyperglycemia due to type 2 diabetes mellitus (Acute) History of CVA (cerebrovascular accident) (Chronic) Type 2 diabetes mellitus with diabetic neuropathy, with long-term current use of insulin (Chronic) Hypothyroidism (Chronic) COPD (chronic obstructive pulmonary disease) (Chronic) Tobacco dependence syndrome (Chronic) - VTE Risk Labs: VTE Related Lab Results Hgb 10.4 g/dL (12.2-16.2) L 04/28/21 06:40 Hct 32.2 % (37.0-47.0) L 04/28/21 06:40 Plt Count 330 K/mm3 (142-424) 04/28/21 06:40 BUN 27 mg/dl (7-17) H 04/28/21 06:40 Creatinine 0.70 mg/dl (0.52-1.04) D 04/28/21 06:40 Estimated Creat Clear 69 mL/min (50-200) 04/28/21 06:40 - Prophylaxis Types of VTE Prophylaxis: TEDS Knee High, Pharmacological Location of Applied Device: Bilateral Lower Extremeties (CHRIS HOSE AND XARELTO) Pharmacologic Type: Other
[2021-04-28 16:40] LABS: POC Glucose,Bedside 297 (70-110)
--- NOTE | 2021-04-28 17:26 | PC.NURSE ---
Pt has slept most of the day. Blood sugars have been covered by SSI this shift. Pt has been a total assist when moving around in bed. Cloudy, straw color urine draining per bernardo. No other acute changes or complaints at this time. WIll continue to monitor.
[2021-04-28 19:30] LABS: POC Glucose,Bedside 302 (70-110)
[2021-04-28 21:08] LABS: POC Glucose,Bedside 317 (70-110)
--- NOTE | 2021-04-29 03:33 | PC.NURSE ---
A&OX4. TOLERATING 2LNC WELL. PT REQUIRING X2 ASSIST IN BED. F/C PRESENT DRAINING DARK YELLOW URINE. PT AND HER SISTER STATE THAT SHE HAS BEEN PASSING OUT MULTIPLE TIMES. THIS NURSE WAS IN ROOM WHILE THIS WAS HAPPENING AND PT SEEMED TO FALL ASLEEP. NO OTHER SYMPTOMS. AWOKE SOON I SAID HER NAME. PT HAS BEEN SLEEPING MAJORITY OF SHIFT. NO OTHER C/O. VSS WILL CONTINUE TO MONITOR.
[2021-04-29 04:00] VITALS: BMI 53.0
[2021-04-29 05:21] LABS: POC Glucose,Bedside 161 (70-110)
[2021-04-29 08:00] VITALS: BP 114/58; PULSE 82; RESP 20; TEMP 36.8; O2SAT 94
--- NOTE | 2021-04-29 08:04 | HMH.ACPN2 ---
Internal Medicine - PN: Subj *Date: 04/29/21 *Time: 08:04 Interval history: more alert today - gram neg rods Exam Vital signs and Labs for Last 24 Hours: Temp Pulse Resp BP Pulse Ox 97.9 F 81 17 99/67 L 96 04/28/21 20:00 04/28/21 20:00 04/28/21 20:00 04/28/21 20:00 04/28/21 20:00 Laboratory Results - last 24 hr 04/27/21 23:45: Urine Color Yellow, Urine Appearance Cloudy, Urine pH 6.0, Ur Specific [place] 1.015, Urine Protein Trace, Urine Glucose (UA) 3+, Urine Ketones Negative, Urine Blood Negative, Urine Nitrate Positive, Urine Bilirubin Negative, Urine Urobilinogen 0.2, Ur Leukocyte Esterase 1+ A, Urine WBC 20-50, Ur Squamous Epith Cells Occasional, Urine Bacteria 4+ 04/28/21 11:44: POC Glucose 277 H 04/28/21 16:18: POC Glucose 297 H 04/28/21 19:22: POC Glucose 302 H* 04/28/21 20:51: POC Glucose 317 H* 04/29/21 05:10: POC Glucose 161 H I & O for Last 24 hours: Intake & Output 04/26/21 04/27/21 04/28/21 04/29/21 11:59 11:59 11:59 11:59 Intake Total 2240 / 2240 960 / 960 Output Total 4900 / 4900 Balance 2240 / 2240 -3940 / -3940 Weight 380 lb 288 lb 2 oz Microbiology Reports for the Last 24 Hours: Microbiology 04/27/21 23:45 Urine,Catheterized Urine Culture - Preliminary Gram Negative Rods - Constitutional no acute distress, obese - *Routine HEENT Exam Head: Present: normocephalic Eye: Present: EOMI, PERRL ENT: Present: mucous membranes dry - *Routine Neck Exam Present: supple - *Routine Respiratory Exam Present: CTA bilaterally - *Routine Cardiovascular Exam Present: RRR - *Routine Abdominal Exam Present: soft - *Routine Extremities Exam Absent: calf tenderness - *Routine Skin Exam Present: intact - *Routine Neurological Exam Present: alert, CN II-XII intact - Routine Psychiatric Exam Present: normal affect Assessment and Plan (1) UTI (urinary tract infection) Status: Acute Qualifiers: Urinary tract infection type: site unspecified Hematuria presence: without hematuria Qualified Code(s): N39.0 - Urinary tract infection, site not specified Category: Medical Code(s): N39.0 - Urinary tract infection, site not specified (2) Obesity Status: Acute Qualifiers: Obesity type: due to excess calories Obesity classification: adult class 3 (BMI >= 40) Serious obesity comorbidity presence: with serious comorbidity Body mass index: BMI 60.0-69.9 Qualified Code(s): E66.01 - Morbid (severe) obesity due to excess calories; Z68.44 - Body mass index [BMI] 60.0-69.9, adult Category: Medical Code(s): E66.9 - Obesity, unspecified (3) S/P BKA (below knee amputation) unilateral Status: Acute Category: Surgical Code(s): Z89.519 - Acquired absence of unspecified leg below knee (4) 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 transplanted heart: [place] heart Associated angina: unspecified whether angina present Qualified Code(s): I25.10 - Atherosclerotic heart disease of [place] coronary artery without angina pectoris Category: Medical Code(s): I25.10 - Atherosclerotic heart disease of [place] coronary artery without angina pectoris (7) Diastolic dysfunction Status: Acute Category: Medical Code(s): I51.89 - Other ill-defined heart diseases (8) Syncope Status: Acute Qualifiers: Syncope type: unspecified Qualified Code(s): R55 - Syncope and collapse Category: Medical Code(s): R55 - Syncope and collapse (9) Hypothyro
[2021-04-29 11:03] LABS: POC Glucose,Bedside 316 (70-110)
[2021-04-29 11:08] VITALS: BP 106/42; PULSE 88; RESP 21; TEMP 36.8; O2SAT 92
--- NOTE | 2021-04-29 14:12 | PC.NURSE ---
SHE IS AOX4, ABLE TO MAKE NEEDS KNOWN TO STAFF, ONE LARGE FORMED BM THIS SHIFT, SHE HAS BEEN UP TO CHAIR T/O SHIFT AND TOLERATED WELL, TOLERATING RA WELL AT THIS TIME.
[2021-04-29 16:00] VITALS: BP 128/52; PULSE 88; RESP 22; TEMP 36.8; O2SAT 93
[2021-04-29 18:15] VITALS: O2SAT 91
[2021-04-29 18:45] LABS: POC Glucose,Bedside 349 (70-110)
[2021-04-29 20:00] VITALS: BP 148/67; PULSE 79; RESP 17; TEMP 36.7; O2SAT 92
--- NOTE | 2021-04-29 22:43 | PC.NURSE ---
2100 COURTESY ROUND PATIENT AWAKE AND SITTING UP IN BED. PITCHER REFILLED WITH ICE . TRASH AND LINENS EMPTIED
[2021-04-30] VITALS (8 sets, daily range): BP systolic 109–175; BP diastolic 64–96; PULSE 75–95; RESP 17–19; TEMP 36.4–36.8; O2SAT 90–94; BMI 53.0; BMI 42.7
[2021-04-30 00:44] LABS: POC Glucose,Bedside 368 (70-110)
--- NOTE | 2021-04-30 03:30 | PC.NURSE ---
A&OX4. TOLERATING RA WHILE AWAKE AND 2LNC WHILE SLEEPING. PT HAS HAD NO C/O PAIN/NA/VO THUS FAR. F/C PRESENT DRAINING DARK YELLOW URINE. PT HAS BEEN IN BED SLEEPING MAJORITY OF SHIFT. PT HAS BEEN TEARFUL SOME T/O NIGHT. VSS WILL CONTINUE TO MONITOR.
[2021-04-30 05:37] LABS: POC Glucose,Bedside 183 (70-110)
[2021-04-30 05:54] LABS: Basophils # 0.1 K/mm3 (0-0.2); Basophils % 0.8 % (0.1-2.0); Eosinophils # 0.5 K/mm3 (0.0-0.4); Eosinophils % 5.3 % (0.1-12.0); Hematocrit 33.6 % (37.0-47.0); Hemoglobin 10.9 g/dL (12.2-16.2); Lymphocytes # 2.4 K/mm3 (0.7-4.5); Lymphocytes % 24.2 % (10-50); Mean Corpuscular HGB Conc 32.4 g/dL (31.8-35.4); Mean Corpuscular Hemoglobin 28.3 pg (27.0-31.2); Mean Corpuscular Volume 87.1 fl (81-99); Mean Platelet Volume 9.6 fl (7.4-10.4); Monocytes # 0.6 K/mm3 (0.1-1.0); Monocytes % 6.5 % (1.7-9.3); Neutrophils # 6.2 K/mm3 (1.8-7.8); Neutrophils % 63.1 % (37.0-80.0); Platelet Count 316 K/mm3 (142-424); Red Blood Count 3.86 M/mm3 (4.20-5.40); Red Cell Distribution Width 16.3 % (11.5-17.5); White Blood Count 9.8 K/mm3 (4.8-10.8)
[2021-04-30 05:57] LABS: Chloride 90 mmol/L (98-107); Sodium 136 mmol/L (136-145)
[2021-04-30 05:58] LABS: Potassium 4.1 mmoL/L (3.5-5.1)
[2021-04-30 06:00] LABS: Blood Urea Nitrogen 23 mg/dl (7-17); Creatinine Clearance Estimated 53 mL/min (50-200); Estimated Glomerular Filt Rate 65 ml/min (>60); GFR (African American) 79 ML/MIN (>60)
[2021-04-30 06:01] LABS: Calcium 9.3 mg/dl (8.4-10.2); Glucose 207 mg/dl (74-100)
[2021-04-30 06:08] LABS: Anion Gap 13.1 mEq/L (5-15); Carbon Dioxide 37 mmol/L (22.0-30.0)
--- NOTE | 2021-04-30 06:21 | PC.NURSE ---
0600 COURTES[address] ROUND PATIENT ASLEEP ON RIGHT SIDE. TRASH EMPTIED AND ICE REFILLED
--- NOTE | 2021-04-30 08:58 | HMH.ACPN2 ---
Internal Medicine - PN: Subj *Date: 04/30/21 *Time: 09:01 Interval history: pt states she is having wheezing. pt asking to be dc back to [facility] Exam Vital signs and Labs for Last 24 Hours: Temp Pulse Resp BP Pulse Ox 97.9 F 75 19 120/71 93 L 04/30/21 04:00 04/30/21 04:00 04/30/21 04:00 04/30/21 04:00 04/30/21 04:00 Laboratory Results - last 24 hr 04/29/21 10:47: POC Glucose 316 H* 04/29/21 16:10: POC Glucose 349 H* 04/29/21 20:28: POC Glucose 368 H* 04/30/21 05:30: POC Glucose 183 H 04/30/21 05:38: WBC 9.8, RBC 3.86 L, Hgb 10.9 L, Hct 33.6 L, MCV 87.1, MCH 28.3, MCHC 32.4, RDW 16.3, Plt Count 316, MPV 9.6, Neut % (Auto) 63.1, Lymph % (Auto) 24.2, [place] % (Auto) 6.5, Eos % (Auto) 5.3, Baso % (Auto) 0.8, Neut # (Auto) 6.2, Lymph # (Auto) 2.4, [place] # (Auto) 0.6, Eos # (Auto) 0.5 H, Baso # (Auto) 0.1 04/30/21 05:38: Sodium 136, Potassium 4.1, Chloride 90 L, Carbon Dioxide 37 H, Anion Gap 13.1, BUN 23 H, Creatinine 0.90 D, Estimated Creat Clear 53, Estimated GFR 65, Est GFR ( Amer) 79 D, Glucose 207 H, Calcium 9.3 I & O for Last 24 hours: Intake & Output 04/27/21 04/28/21 04/29/21 04/30/21 11:59 11:59 11:59 11:59 Intake Total 2240 / 2240 1200 / 1200 1100 / 1100 Output Total 4900 / 4900 4500 / 4500 Balance 2240 / 2240 -3700 / -3700 -3400 / -3400 Weight 380 lb 288 lb 2 oz 288 lb 1.989 oz Microbiology Reports for the Last 24 Hours: Microbiology 04/27/21 23:45 Urine,Catheterized Urine Culture - Final Gram Negative Rods - Constitutional no acute distress, chronically ill appearing - *Routine HEENT Exam Head: Present: normocephalic Eye: Present: PERRL ENT: Present: mucous membranes moist - *Routine Neck Exam Present: supple. Absent: lymphadenopathy - *Routine Respiratory Exam Present: wheezes - *Routine Cardiovascular Exam Present: RRR - *Routine Abdominal Exam Present: soft, normoactive bowel sounds. Absent: tenderness - *Routine Extremities Exam Present: normal capillary refill, amputation. Absent: cyanosis, clubbing, edema Comments: left bka - *Routine Skin Exam Present: warm. Absent: rash - *Routine Neurological Exam Present: alert, oriented X3 - Routine Psychiatric Exam Present: normal affect Assessment and Plan (1) UTI (urinary tract infection) Status: Acute Qualifiers: Urinary tract infection type: site unspecified Hematuria presence: without hematuria Qualified Code(s): N39.0 - Urinary tract infection, site not specified Category: Medical Code(s): N39.0 - Urinary tract infection, site not specified (2) Obesity Status: Acute Qualifiers: Obesity type: due to excess calories Obesity classification: adult class 3 (BMI >= 40) Serious obesity comorbidity presence: with serious comorbidity Body mass index: BMI 60.0-69.9 Qualified Code(s): E66.01 - Morbid (severe) obesity due to excess calories; Z68.44 - Body mass index [BMI] 60.0-69.9, adult Category: Medical Code(s): E66.9 - Obesity, unspecified (3) S/P BKA (below knee amputation) unilateral Status: Acute Category: Surgical Code(s): Z89.519 - Acquired absence of unspecified leg below knee (4) 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 transplanted heart: [place] heart Associated angina: unspecified whether angina pres
--- NOTE | 2021-04-30 10:27 | HMH.CNCARD ---
History of Present Illness Consult date: 04/30/21 Requesting physician: Sameer Patterson Chief complaint: Syncope, UTI Additional Medical History:: 1. PAD A. Left SFA POBA, 04/2015 B. 5 BMS to Left SFA, 12/2018 with BMS with drug coated balloon to Left SFA and popliteal on 05/17/2020 C. Drug eluting ballooning of right SFA with less than 20% residual, 01/2019 and again, 05/2020 D. 12/2019, Left SFA drug coated ballooning and BMS, resolute rylie stent to right AT trunk E. 12/2019, left second and third toe amputation, left heel debridement, left Achilles lengthening 2. Tobacco use, since age 18, 1.5-2 ppd A. PFT's, 11/2018, severe obstructive airway disease. 3. Diabetes, insulin requiring for 15 yrs. 4. Hypertension A. Echo, 02/2021, 1. Technically very difficult and poor study, probably preserved left ventricular systolic function, segmental wall motion analysis from the study is difficult, repeat study with Definity contrast is recommended. Diastolic parameters are inconclusive. Visually estimated ejection fraction from the obtained views is approximately 50%. 2. Mild mitral and tricuspid regurgitation. 3. Aortic valve is not visualized. 4. No significant pericardial effusion noted. Electronically signed by : Dg Thompson, 03/05/2021 09:56:19 5. Hyperlipidemia A. LDL 6. FH of CAD in her father, [place] in his early 60's 7. CVA with right hemiparesis, 03/2020 A. Prior CVA 10/2019 affecting eyesight 8. CAD A. [facility], 07/2017, 1. Mild nonflow limiting proximal LAD disease 2. Severe disease in a small nondominant right coronary artery and a 2.25 to 2.5 mm vessel 3. Normal ejection fraction 4. Mildly elevated LVEDP B. [facility], 02/2021, shows: The left main artery Normal The left anterior descending artery Large with mild proximal and mid vessel 10% luminal irregularities The circumflex artery Large dominant with mild 10% luminal irregularities The right coronary artery Was not engaged due to its anterior takeoff. 2016 this vessel was vestigial and did not supply any of the left ventricle. The vessel had moderate 40% diffuse disease however the vessel was 1.5 mm in its maximum diameter The STRINGER ventriculogram reveals Not performed The left ventricular end-diastolic pressure Not measured IMPRESSION Patent coronary arteries as described above PLAN 1. Evaluate ejection fraction with echocardiogram 2. Empiric treatment for diastolic dysfunction 3. Patient would likely benefit from diuretics and weight loss 9. Bilateral Thyroid nodules on u/s, 11/2018 A. Thyroid uptake, 11/2018, normal left, hypoactive right B. Patient relates thyroidectomy without need for radiation or chemotherapy due to nodules being benign. 10. Vasovagal syncope secondary to aspiration A. We will treat with low-dose beta-mark therapy and low-dose SSRI to increase vagal tone. History of present illness: From PCP H&P on day of admission: Per RN at [facility], pt has had 4-5 witnessed syncopal episodes today. Pt does have a h/x of these, and they stated the MD thought it was d/t pt having vasovagal episodes during BMs. Although, the RN thought something else was going on . Per EMS, they checked pt's FS and it was HIGH , they rechecked [employer] and it was 530. Per EMS, she receievved 10 units of insulin @ 2200 . On arrival, pt's FS is 490. Pt is clammy around her neck, reports excessive thirst, and fatigue. Pt said tonight she passed out into my plate of food . Pt denies any SOA or dyspnea, although EMS placed pt on O2 d/t SaO2 of 90%, they increased to 3LPM to get a sat of 94%. Pt does usually wear O2 @ 2LPM NC during sleep. Pt denies any current dizziness, headache, or vision changes. Pt does have right side deficits d/t prev CVA. Currently on ABX for UTI with gram neg rods. Patient relates occasional vague, brief episodes of chest pain but nothing prolonged. When asked about her syncopal episode
--- NOTE | 2021-04-30 11:25 | HMH.PTEV ---
Physical Therapy Evaluation Rehab PT IP Evaluation Start: 04/30/21 10:01 Freq: ONCE Status: Active Protocol: Document 04/30/21 11:21 [email or web address] (Rec: 04/30/21 11:25 [email or web address] [id number]) Subjective/History History History 55 yowf adm to [facility] with UTI. She resides at a [facility], has prior hx of CVA with flaccid R UE and LE and prior L BKA. SHe reports using denise lift for all transfers at baseline. Subjective Subjective Pt with no c/o this am. Rehab PT IP Eval Objective Appearance Patient Behavior Appropriate Patient Orientation Person,Place,Time Difficulty following instructions none Speech Pattern Clear Ambulation Patient Able to Ambulate No Balance Ability to Arise Unable Sitting Balance Steady, safe Dynamic Sitting Balance Ability Fair Transfers Bed Transfer Ability Maximum x 1 (75% assist) Chair Transfer Ability Total/Dependent (100%) Rehab PT IP prob,goals,plan Problems Date of Evaluation: 04/30/21 Discharge Plan PT Discharge Plan Pt is currently at baseline status for mobility, she uses lift for all OOB transfers at [facility] and will continue this upon d/c. She is appropriate to return to [facility] once medically stable. [facility] is assisting pt OOB to chair with lift. G -code Required No Eval Complexity Eval Charge Codes 57187 - Moderate Complexity PHYSICIAN CERTIFICATION: I certify the specified therapy services for Vicky Squires are required, authorized, and reviewed every 30 days.
[2021-04-30 12:30] LABS: POC Glucose,Bedside 301 (70-110)
--- NOTE | 2021-04-30 13:22 | SW/DCPLANNER ---
Addendum entered by Gloria Castrejon 05/01/21 09:42: Patient information has been faxed to [facility] regarding discharge. Patient will return to [facility] today. Original Note: This patient currently resides at [facility] level of care. I will follow up with [facility] once patient is medically stable for discharge.
--- NOTE | 2021-04-30 13:46 | HMH.OTEV ---
OT Inpatient Evaluation Rehab OT IP Evaluation Start: 04/30/21 10:05 Freq: ONCE Status: Complete Protocol: Document 04/30/21 13:39 [email or web address] (Rec: 04/30/21 13:46 [email or web address] [id number]) Rehab OT IP Assessment Subjective History 55 year old female brought into the ER by EMS from [facility]. Patient has a hx of CVA and hemiparesis to R side of body and BKA to L LE. Medical History: Reports:: Anxiety, Atherosclerotic Heart Disease, Congestive Heart Failure, Chronic Obstructive Pulmonary Disease (COPD), Coronary Artery Disease, Cerebrovascular Accident, Depression, Diabetes Mellitus Type 2, Hyperlipidemia, Hypertension, Peripheral Artery Disease, Peripheral Vascular Disease Subjective Patient has been living at long term [facility] for the past year. Staffing assist with all ADLs except for self feeding and uses a denise lift for all transfers for safety. Patient presents to be at baseline for IP services at this time. Objective Patient Orientation Person,Place,Year Upper Extremity Gross ROM Mod Limitation 50% Bed Mobility bed mobility - supine/sit Assist Level Minimal x 1 (25% assist) Rehab OT IP prob,goals,plan Problems Date of Evaluation: 04/30/21 Rehab Potential Rehab Potential Innapropriate for Skilled Therapy Discharge Plan OT Discharge Plan Patient is at baseline with ADLs and fx'l mobility status at this time. Patient will be returning back to SNF within the next day or so to continue SNF therapy services. Eval Complexity Eval Charge Codes 32382 - Low Complexity G Codes G -code Required No PHYSICIAN CERTIFICATION: I certify the specified therapy services for Vicky Antonio Shaw are required, authorized, and reviewed every 30 days. _
--- NOTE | 2021-04-30 17:49 | PC.NURSE ---
1700 RN reassessment completed at this time. Pt has set up in the bed talking on her phone for majority of the day. She remains A & O X4. Pt has intermittent coughing spells but reports they have improved since PRN breathing treatment and inhaler was added by MD. Lung sounds with expiratory rhonchi and scattered wheezes. Pt denies any SOA or difficulty breathing. Pt removed SaO2 herself during the day, SaO2 in low 90 range. O2 reapplied with SaO2 in mid 90's. Abd soft and nontender with BS active in all quads, tolerating diet well. Pt has been repositioned throughout the day when agreeable to tilt to her side. Pt also able to shift herself in the bed using her left extremities. Severe weakness noted to pt related to prior CVA, baseline for her. Call light within reach, will continue to monitor.
[2021-04-30 17:52] LABS: POC Glucose,Bedside 352 (70-110)
[2021-04-30 20:35] LABS: POC Glucose,Bedside 334 (70-110)
--- NOTE | 2021-04-30 20:50 | PC.NURSE ---
RA SAT=88%, PT OFF OF O2 WHEN I WALKED INTO THE ROOM.
--- NOTE | 2021-04-30 20:51 | PC.NURSE ---
trash pulled and snack passed at this time
--- NOTE | 2021-05-01 03:20 | PC.NURSE ---
No acute changes this shift. Pt rested well all night. IV patent. Admin meds per JAN. Pt is on 2LNC and tolerates well stats in mid s. Purewick in place and draining clear, yellow urine. Pt is A/O x4. Pt is able to make needs known to staff. VSS, Call light within reach. No concerns at this time.
[2021-05-01 04:00] VITALS: BP 130/68; PULSE 78; RESP 18; TEMP 36.9; O2SAT 93
[2021-05-01 05:00] VITALS: BMI 42.5
--- NOTE | 2021-05-01 05:31 | PC.NURSE ---
ice water passed and trash pulled at this time
[2021-05-01 06:56] LABS: Basophils # 0.1 K/mm3 (0-0.2); Basophils % 0.9 % (0.1-2.0); Eosinophils # 0.4 K/mm3 (0.0-0.4); Eosinophils % 4.4 % (0.1-12.0); Hematocrit 33.3 % (37.0-47.0); Hemoglobin 10.7 g/dL (12.2-16.2); Lymphocytes % 21.6 % (10-50); Mean Corpuscular HGB Conc 32.1 g/dL (31.8-35.4); Mean Corpuscular Hemoglobin 28.2 pg (27.0-31.2); Mean Corpuscular Volume 87.7 fl (81-99); Mean Platelet Volume 9.2 fl (7.4-10.4); Monocytes # 0.6 K/mm3 (0.1-1.0); Monocytes % 6.5 % (1.7-9.3); Neutrophils # 6.1 K/mm3 (1.8-7.8); Neutrophils % 66.7 % (37.0-80.0); Platelet Count 307 K/mm3 (142-424); Red Blood Count 3.79 M/mm3 (4.20-5.40); Red Cell Distribution Width 16.4 % (11.5-17.5); White Blood Count 9.2 K/mm3 (4.8-10.8)
[2021-05-01 07:02] LABS: Chloride 88 mmol/L (98-107); Sodium 136 mmol/L (136-145)
[2021-05-01 07:03] LABS: Potassium 4.6 mmoL/L (3.5-5.1)
[2021-05-01 07:05] LABS: Anion Gap 14.6 mEq/L (5-15); Blood Urea Nitrogen 30 mg/dl (7-17); Carbon Dioxide 38 mmol/L (22.0-30.0); Creatinine Clearance Estimated 64 mL/min (50-200); Estimated Glomerular Filt Rate 58 ml/min (>60); GFR (African American) 70 ML/MIN (>60)
[2021-05-01 07:06] LABS: Calcium 9.3 mg/dl (8.4-10.2); Glucose 302 mg/dl (74-100)
[2021-05-01 07:19] VITALS: BP 139/71; PULSE 80; RESP 20; TEMP 36.2; O2SAT 90
[2021-05-01 08:00] VITALS: PULSE 80; RESP 20; O2SAT 90
[2021-05-01 08:45] LABS: POC Glucose,Bedside 342 (70-110)
--- NOTE | 2021-05-01 09:07 | HMH.DCSUM ---
General - General Admission date:: 04/28/21 Discharge date: 05/01/21 HPI HPI: this pt [facility] with several episodes of syncope - pt has sig hx of prev cva and diabetes mellitus -pt was seen in the ed with abn u/a and was admitted with ivf and abx - Hospital Course Hospital Course: this pt presented [facility] with several episodes of syncope - pt has sig hx of prev cva and diabetes mellitus -pt was seen in the ed with abn u/a and was admitted with ivf and abx - 04/27/21 CXR: FINDINGS: Lungs: The lungs appear clear. There is mild stable elevation of the left hemidiaphragm. No focal areas of consolidation. Pleural spaces: No pleural effusions or appreciable adenopathy. Negative for pneumothorax. Heart/Mediastinum: Cardiac silhouette and pulmonary vasculature are within range of normal. Mild atherosclerotic vascular calcifications involve the aortic arch. Bones/joints: There is no evidence of acute fracture. IMPRESSION: Negative for an acute cardiopulmonary abnormality. Electronically signed by Elizabeth Baez Cardiology seen and recommends: 1. Vasovagal syncope related to coughing. Coughing is a result of potential aspiration related to the patient's CVA. She is aware of maneuvers to minimize this from happening. Will recommend discontinuing amlodipine in favor of beta-mark and low-dose SSRI to increase vagal tone. 2. Coronary artery disease, clinically stable with no EKG changes or troponin elevation 3. Remote CVA with right-sided hemiparesis 4. Diabetes mellitus with recent elevated glucose due to UTI 5. Status post left BKA with patient stating she will be getting a prosthetic leg soon. 6. UTI, on antibiotic therapy 7. Obesity, patient has lost greater than 30 pounds in the last few months 8. Hypertensive heart disease with diastolic dysfunction, continue Lasix along with lisinopril. Would recommend discontinuing Norvasc and starting carvedilol therapy in this diabetic patient. Patient could be discharged back to the intermediate at the discretion of the PCP. A.M. lab work is unactionable. Urine culture reveals Klebsiella pneumonia which is sensitive to levofloxacin PLAN: 1. Discharge back to [facility] today 2. Levaquin 750 mg daily x7 days 3. Follow-up with PCP in 1 week 4. Stop Norvasc 5. Start carvedilol 3.125 mg daily 6. Paroxetine 20 mg daily Objective Vital signs: Temp Pulse Resp BP Pulse Ox 97.2 F L 80 20 139/71 90 L 05/01/21 07:19 05/01/21 08:00 05/01/21 08:00 05/01/21 07:19 05/01/21 08:00 no acute distress, morbidly obese, chronically ill appearing - *Routine HEENT Exam Head: Present: normocephalic Eye: Present: EOMI ENT: Present: mucous membranes moist - *Routine Neck Exam Present: trachea midline. Absent: tracheal deviation - *Routine Respiratory Exam Present: rhonchi. Absent: accessory muscle use - *Routine Cardiovascular Exam Present: RRR - *Routine Abdominal Exam Present: soft, normoactive bowel sounds, obese. Absent: tenderness, firm - *Routine Extremities Exam Present: edema, pulses intact, amputation. Absent: cyanosis Comments: L BKA Right-sided weakness - *Routine Skin Exam Present: intact, warm. Absent: cyanosis, erythema - *Routine Neurological Exam Present: alert, altered mental status. Absent: motor deficit, moving all extremities - Routine Psychiatric Exam Present: unable to assess Results Labs on day of discharge: Labs from last 24 hours 05/01/21 05/01/21 05/01/21 06:51 06:51 05:04 WBC 9.2 RBC 3.79 L Hgb 10.7 L Hct 33.3 L MCV 87.7 MCH 28.2 MCHC 32.1 RDW 16.4 Plt Count 307 MPV 9.2 Neut % (Auto) 66.7 Lymph % (Auto) 21.6 [place] % (Auto) 6.5 Eos % (Auto) 4.4 Baso % (Auto) 0.9 Neut # (Auto) 6.1 Lymph # (Auto) 2.0 [place] # (Auto) 0.6 Eos # (Auto) 0.4 Baso # (Auto) 0.1 [place]
[2021-05-01 11:18] LABS: POC Glucose,Bedside 333 (70-110)
== END 2021-05-01 12:00 | disposition home or self-care (01) | DRG 57 ==
LOC: ER 04-28 02:07 → 2ND 04-28 05:18
PROVIDERS: Nurse Practitioner Family; Admitting Provider Emergency Medicine; Emergency Provider Emergency Medicine; PCP Emergency Medicine; Visit Provider Emergency Medicine
DX: I69.398 Other sequelae of cerebral infarction (principal); N39.0 Urinary tract infection, site not specified; I69.351 Hemiplegia and hemiparesis following cerebral infarction affecting right dominant side; Z68.44 Body mass index [BMI] 60.0-69.9, adult; I25.10 Atherosclerotic heart disease of native coronary artery without angina pectoris; Z79.4 Long term (current) use of insulin; F17.210 Nicotine dependence, cigarettes, uncomplicated; I11.0 Hypertensive heart disease with heart failure; I50.9 Heart failure, unspecified; Z89.512 Acquired absence of left leg below knee; E11.65 Type 2 diabetes mellitus with hyperglycemia; B96.1 Klebsiella pneumoniae [K. pneumoniae] as the cause of diseases classified elsewhere; E11.51 Type 2 diabetes mellitus with diabetic peripheral angiopathy without gangrene; Z95.5 Presence of coronary angioplasty implant and graft; I08.1 Rheumatic disorders of both mitral and tricuspid valves; Z82.49 Family history of ischemic heart disease and other diseases of the circulatory system; F41.9 Anxiety disorder, unspecified; F32.9 Major depressive disorder, single episode, unspecified; E03.9 Hypothyroidism, unspecified; E11.40 Type 2 diabetes mellitus with diabetic neuropathy, unspecified
CPT/HCPCS: 36415; 71045; 80048; 80053; 81001; 82009; 82728; 82803; 82962; 83540; 83550; 83735; 83880; 84145; 84436; 84443; 84484; 85025; 85651; 86140; 87086; 87088; 87186; 93005; 94640; 96365; 96366; 96375; 97162; 97165; 99284; U0003

== ENCOUNTER 2021-05-08 16:44 | Observation (INO) | payer MEDICARE, MEDICAID, SELFPAY ==
[2021-05-08 16:45] VITALS: BP 124/68; PULSE 74; RESP 16; TEMP 36.9; O2SAT 94; BMI 41.3
--- NOTE | 2021-05-08 17:55 | XR_ITS ---
PROCEDURE INFORMATION: Exam: XR Right Foot Exam date and time: 05/08/2021 5:55 PM Age: 55 years old Clinical indication: Pain; Right; Patient HX: Very large blister on bottom of foot. PT is paralyzed from the waist down, just noticed blister yesterday. PT is diabetic; Additional info: Blister, swelling, redness of foot TECHNIQUE: Imaging protocol: XR Right foot. Views: 3 or more views. Total images: 3 COMPARISON: CR XR FOOT WT BEARING RT 3V 01/15/2021 3:39 PM FINDINGS: Bones/joints: Moderate plantar calcaneal spurring. There is generalized osteopenia present with a superimposed greater component of juxta-articular osteopenia involving the 2nd through 5th MTP joints and tarsal bones of the midfoot, unchanged from 01/15/2021. The pattern is nonspecific and could be seen with chronic disuse, chronic inflammatory arthropathy, or complex regional pain syndrome. The fairly long-term stability goes against osteomyelitis. If there is strong clinical suspicion for osteomyelitis, consider MRI. No fracture or dislocation. Soft tissues: There is moderate soft tissue swelling involving the forefoot, dorsal midfoot, and anterior ankle, which is significantly increased from prior radiographs 01/15/2021. No definite soft tissue air although CT would be more sensitive if clinically indicated. No radiopaque foreign bodies are identified. IMPRESSION: 1. Severe soft tissue swelling, nonspecific. No definite soft tissue air is seen although CT would be more sensitive if clinically indicated. 2. Chronic pattern of juxta-articular osteopenia involving the 2nd through 5th MTP joints and tarsal bones of the midfoot. The relative long-term stability of the pattern goes against osteomyelitis, please see differential considerations above. If there is strong clinical suspicion for osteomyelitis, consider MRI or 3 phase bone scan.
[2021-05-08 17:56] LABS: Basophils # 0.1 K/mm3 (0-0.2); Basophils % 0.8 % (0.1-2.0); Eosinophils # 0.3 K/mm3 (0.0-0.4); Eosinophils % 3.3 % (0.1-12.0); Hematocrit 33.4 % (37.0-47.0); Hemoglobin 10.8 g/dL (12.2-16.2); Lymphocytes # 2.2 K/mm3 (0.7-4.5); Lymphocytes % 20.7 % (10-50); Mean Corpuscular HGB Conc 32.4 g/dL (31.8-35.4); Mean Corpuscular Hemoglobin 28.3 pg (27.0-31.2); Mean Corpuscular Volume 87.5 fl (81-99); Mean Platelet Volume 8.6 fl (7.4-10.4); Monocytes # 0.6 K/mm3 (0.1-1.0); Monocytes % 5.7 % (1.7-9.3); Neutrophils # 7.3 K/mm3 (1.8-7.8); Neutrophils % 69.5 % (37.0-80.0); Platelet Count 343 K/mm3 (142-424); Red Blood Count 3.82 M/mm3 (4.20-5.40); Red Cell Distribution Width 16.6 % (11.5-17.5); White Blood Count 10.5 K/mm3 (4.8-10.8)
--- NOTE | 2021-05-08 17:56 | HMH.EDGENADL ---
ED Disposition Clinical Impression: Diabetic foot infection Blister of foot Qualifiers: Encounter type: initial encounter Laterality: right Qualified Code(s): S90.821A - Blister (nonthermal), right foot, initial encounter Disposition: Admitted as Observation Condition on Discharge: Fair - Critical Care Critical Care Time: No Attestation: On , the high probability of a clinically significant, sudden or life threatening deterioration of the following system(s) required my full and direct attention, intervention and personal management. The time I documented below is in addition to time spent performing reported procedures but includes the following listed in this critical care notation. Medical Decision Making - Edgar Inquiry Pt receiving controlled substance: No Vital Signs: 05/08/21 16:45 05/08/21 18:17 05/08/21 19:30 Temperature 98.4 F 98.6 F Temperature Source Oral Oral Pulse Rate 76 77 Pulse Rate [Right] 74 Respiratory Rate 16 16 18 Blood Pressure 122/68 111/72 Blood Pressure [Right Arm] 124/68 Blood Pressure Mean [Right Arm] 86 02 Sat by Pulse Oximetry 94 L 97 Oxygen Delivery Method Room Air Nasal Cannula Nasal Cannula Oxygen Flow Rate (LPM) 2 - Lab Data Lab Results 05/08/21 17:23: WBC 10.5, RBC 3.82 L, Hgb 10.8 L, Hct 33.4 L, MCV 87.5, MCH 28.3, MCHC 32.4, RDW 16.6, Plt Count 343, MPV 8.6, Neut % (Auto) 69.5, Lymph % (Auto) 20.7, [place] % (Auto) 5.7, Eos % (Auto) 3.3, Baso % (Auto) 0.8, Neut # (Auto) 7.3, Lymph # (Auto) 2.2, [place] # (Auto) 0.6, Eos # (Auto) 0.3, Baso # (Auto) 0.1 05/08/21 17:23: Sodium 137, Potassium 4.4, Chloride 92 L, Carbon Dioxide 36 H, Anion Gap 13.4, BUN 40 H, Creatinine 1.10 H, Estimated Creat Clear 60, Estimated GFR 52 L, Est GFR ( Amer) 62, Glucose 279 H, Calcium 9.3, Total Bilirubin 0.3, AST 28, ALT 13, Alkaline Phosphatase 148 H, Total Protein 7.3, Albumin 4.0, Globulin 3.3 H, Albumin/Globulin Ratio 1.2 05/08/21 17:23: Lactate 1.6 05/08/21 17:40: ESR 116 H 05/08/21 17:40: C-Reactive Protein 6.1 H 05/08/21 18:00: SARS-CoV-2 (PCR) Not detected, Influenza A Untype (PCR) Not detected, Influenza Type B (PCR) Not detected Result diagrams: 05/08/21 17:23 05/08/21 17:23 Orders (Tests/Meds): ED MEDICATIONS Generic Name Dose Route Start Last Admin Trade Name Freq PRN Reason Stop Dose Admin Acetaminophen 650 mg 05/08/21 20:19 Acetaminophen 325mg Tab PO 06/07/21 20:18 Q4HP PRN Fever or Mild Pain Amlodipine Besylate 10 mg 05/09/21 09:00 Amlodipine 10mg Tablet PO 06/08/21 08:59 DAILY [facility] Aspirin 81 mg 05/09/21 09:00 Aspirin 81mg Chewable Tablet PO 06/08/21 08:59 DAILY [facility] Buspirone HCl 15 mg 05/08/21 21:00 Buspirone Hcl 10 Mg Tablet PO 06/07/21 20:59 TID [facility] Carvedilol 3.125 mg 05/08/21 21:00 Carvedilol 3.125mg Tablet PO 06/07/21 20:59 BID [facility] Clonazepam 0.5 mg 05/08/21 21:00 Clonazepam 0.5mg Tablet PO 06/07/21 20:59 TID [facility] Furosemide 40 mg 05/09/21 09:00 Furosemide 40 Mg Tablet PO 06/08/21 08:59 BIDL [facility] Gabapentin 600 mg 05/08/21 21:00 Gabapentin 600mg Tablet PO 06/07/21 20:59 QID [facility] Vancomycin HCl 1,500 mg/ 250 mls @ 125 mls/hr 05/09/21 06:00 Sodium Chloride IV 05/22/21 17:59 Q12H [facility] Insulin Human Lispro 0 unit 05/08/21 21:00 Humalog 100 Units/Ml 3ml Vial (Ssi) SQ 06/07/21 20:59 ACHS [facility] Protocol Levothyroxine Sodium 150 mcg 05/09/21 09:00 Levothyroxine 150mcg (0.15mg)Tab PO 06/08/21 08:59 DAILY [facility] Lisinopril 10 mg 05/09/21 09:00 Lisinopril 10mg Tablet PO 06/08/21 08:59 DAILY [facility] Miscellaneous 1 each 05/08/21 20:19 Vancomycin Consult Request * 06/07/21 17:59 CONSULT PHARMACY [facility] Non-Formulary Medication 80 mg 05/08/21 21:00 Atorvastatin Calcium [Lipitor 80mg Tablet*] PO 06/07/21 20:59 HS [facility] Paroxetine HCl 20 mg 05/09/21 09:00 Paroxetine 20mg Tablet PO 06/08
[2021-05-08 17:59] LABS: Chloride 92 mmol/L (98-107); Sodium 137 mmol/L (136-145)
[2021-05-08 18:00] LABS: Potassium 4.4 mmoL/L (3.5-5.1)
[2021-05-08 18:02] LABS: Alanine Aminotransferase 13 U/L (12-78); Alkaline Phosphatase 148 U/L (38-126); Aspartate Amino Transferase 28 U/L (14-36); Bilirubin,Total 0.3 mg/dl (0.2-1.3); Blood Urea Nitrogen 40 mg/dl (7-17); Creatinine Clearance Estimated 60 mL/min (50-200); Estimated Glomerular Filt Rate 52 ml/min (>60); GFR (African American) 62 ML/MIN (>60)
[2021-05-08 18:03] LABS: Albumin/Globulin Ratio 1.2 (1.1-1.8); Anion Gap 13.4 mEq/L (5-15); Calcium 9.3 mg/dl (8.4-10.2); Carbon Dioxide 36 mmol/L (22.0-30.0); Globulin 3.3 g/dL (1.3-3.2); Glucose 279 mg/dl (74-100); Total Protein,Serum 7.3 g/dl (6.3-8.2)
[2021-05-08 18:04] LABS: Coronavirus 19, PCR Not Detected (NotDetected); Influenza A, PCR Not Detected (NotDetected); Influenza B, PCR Not Detected (NotDetected)
[2021-05-08 18:17] VITALS: BP 122/68; PULSE 76; RESP 16; O2SAT 97
--- NOTE | 2021-05-08 18:19 | PC.NURSE ---
called switch board for night watch consult. Will receive a call back
--- NOTE | 2021-05-08 18:23 | PC.NURSE ---
vanc consult per [facility] pharmacy vanc 1500mg Q 12 hrs
[2021-05-08 18:40] LABS: Erythrocyte Sedimentation Rate 116 mm/hr (0-30)
[2021-05-08 19:14] LABS: C-Reactive Protein 6.1 mg/L (0-4)
--- NOTE | 2021-05-08 19:27 | PC.NURSE ---
Report called to floor nurse, Cornelia HARRELL at this time. Cornelia aware of Vancomycin infusing.
[2021-05-08 19:30] VITALS: BP 111/72; PULSE 77; RESP 18; TEMP 37; O2SAT 98
--- NOTE | 2021-05-08 19:44 | PC.NURSE ---
PT ARRIVED TO FLOOR FROM ED W/STAFF AT 194
[2021-05-08 20:00] VITALS: BP 126/65; PULSE 85; TEMP 36.7; O2SAT 95; BMI 42.7
[2021-05-08 20:00] LABS: Lactic Acid 1.6 mmol/L (0.7-2.1)
--- NOTE | 2021-05-08 20:00 | PC.NURSE ---
PT ARRIVED TO FLOOR VIA BED FROM ED W/STAFF AT 2000
--- NOTE | 2021-05-08 21:22 | CT_ITS ---
PROCEDURE INFORMATION: Exam: CT Right Lower Extremity Without Contrast, Foot Exam date and time: 05/08/2021 9:22 PM Age: 55 years old Clinical indication: Other: Blister on bottom foot draining, poss osteomylitis; Prior surgery; Surgery date: 6+ months; Surgery type: Amputation of part of foot. Diabetic; Patient HX: Draining blister bottom of foot possible osteomylitis; Additional info: Possible osteo TECHNIQUE: Imaging protocol: CT of the Right lower extremity without contrast was performed. Exam focused on the foot. 3D rendering (Not supervised by radiologist): MIP and/or 3D reconstructed images were created by the technologist. Total images: 755 Radiation optimization: All CT scans at this facility use at least one of these dose optimization techniques: automated exposure control; mA and/or kV adjustment per patient size (includes targeted exams where dose is matched to clinical indication); or iterative reconstruction. COMPARISON: CR XR FOOT RT MIN 3V 05/08/2021 6:18 PM FINDINGS: Bones/joints: Diffuse osteopenia, with superimposed greater degrees of local juxta-articular osteopenia throughout the foot and ankle, similar to the radiographic pattern back to 01/15/2021, although new since 05/16/2020. This is nonspecific in nature and could be seen with chronic disuse or complex regional pain syndrome. No localized osteolysis or periostitis was seen to suggest osteomyelitis. No articular erosive changes to suggest septic joint. Moderate plantar calcaneal spurring. Soft tissues: There are no loculated fluid collections suggestive of abscess. Moderate soft tissue swelling in the dorsal forefoot and midfoot, and anterior ankle. Large blister in the plantar forefoot distribution. There is no soft tissue air to suggest necrotizing fasciitis. No radiopaque foreign bodies are identified. IMPRESSION: 1. No CT evidence of osteomyelitis or septic joint. 2. Large blister on the plantar aspect of the forefoot noted. Moderate soft tissue swelling in the dorsal foot and anterior ankle which is nonspecific, possibly cellulitis. No evidence of abscess. No soft tissue air. 3. Generalized osteopenia with superimposed moderate juxta-articular osteopenia pattern which is new since 05/16/2020. This could relate to disuse or possibly complex regional pain syndrome. 4. Moderate plantar calcaneal spurring.
[2021-05-08 22:02] LABS: POC Glucose,Bedside 276 (70-110)
--- NOTE | 2021-05-08 23:40 | P.CONPHA_ITS ---
[facility] Pharmacy VTE Monitoring - Patient Demographics Admission date: 05/08/21 Report Date: 05/08/21 Time: 23:40 Allergies/Adverse Reactions: Patient Allergies protamine Allergy (Verified 04/29/21 15:30) Height: 1.75 m Weight: 130.861 kg Patient Problems: Current Active Problems Blister of foot (Acute) Diabetic foot infection (Acute) - VTE Risk Labs: VTE Related Lab Results Hgb 10.8 g/dL (12.2-16.2) L 05/08/21 17:23 Hct 33.4 % (37.0-47.0) L 05/08/21 17:23 Plt Count 343 K/mm3 (142-424) 05/08/21 17:23 BUN 40 mg/dl (7-17) H 05/08/21 17:23 Creatinine 1.10 mg/dl (0.52-1.04) H 05/08/21 17:23 Estimated Creat Clear 60 mL/min (50-200) 05/08/21 17:23 Was VTE Risk Assessment Performed: Yes VTE Score: 8 VTE Risk Level: Moderate Risk Clinical Trial Participant: No - Prophylaxis VTE Prophylaxis Ordered?: Yes Types of VTE Prophylaxis: TEDS Knee High
[2021-05-09] VITALS (19 sets, daily range): BP systolic 108–141; BP diastolic 49–76; PULSE 67–79; RESP 14–20; TEMP 36.5–37.1; O2SAT 90–99; BMI 42.7
--- NOTE | 2021-05-09 08:42 | HMH.PHAINT ---
MEDICATION RECONCILIATION COMPLETED ON PATIENT USING MAR AND EXTERNAL PHARMACY FILL HISTORY
--- NOTE | 2021-05-09 09:27 | HMH.ORTHOCON ---
*Admission Date: 05/08/21 *Reason for consult:: Right foot blister, infection *History of present illness: Patient is a 55-year-old female who presents via the ED 05/08/2021 with a right foot blister and infection. She is from [facility]. Apparently it started as a small blister that has now spread to the entire bottom of her foot. X-ray and CT imaging showed no evidence of osteomyelitis. Patient reports general malaise but denies fever and chills. She has a left below-knee amputation. [facility] History I have reviewed the patient's past medical history: Yes Medical History: Reports:: Anxiety, Atherosclerotic Heart Disease, Cardiomyopathy, Congestive Heart Failure, Chronic Obstructive Pulmonary Disease (COPD), Coronary Artery Disease, Cerebrovascular Accident, Depression, Diabetes Mellitus Type 2, Hyperlipidemia, Hypertension, Peripheral Artery Disease, Peripheral Vascular Disease Denies:: Cancer, Diabetes Mellitus Type 1, Internal Pacemaker, MRSA, Seizures *Have you ever received a pneumonia vaccine?: Yes *Have you received a flu vaccine this season?: Yes Other Medical History: Reports: Cataracts, Hypothyroidism, Thyroid Disease. Denies: Blood Transfusion Reaction Laterality Cases: Bilateral: Other Other Surgeries: Yes: Cardiac Catheterization, Cardiac Surgery, Colonoscopy, Coronary Stent, Thyroidectomy, Tubal Ligation, Other. No: Pacemaker Amputation: Yes (Toe left big, L BELOW THE KNEE) Fractures: No - *Social History Smoking Status: Former smoker Tobacco Type: cigarettes # Packs/Day (cigarettes): 1 #Yrs smoked (if former smoker): 30 Alcohol Intake: former Substance Use Type: denies use *Occupational Status:: disabled Housing: house Household Members: family *Travel in the last 8 weeks: None - Psychiatric History Pschychiatric History:: Reports:: Anxiety, Depression Family Hx:: Unable to obtain Review of Systems - Review of Systems Review of systems:: pertinent systems reviewed and negative unless documented below - Constitutional Reports weakness - Eyes Reports blurry vision, Denies blind spots - ENT Denies abnormal hearing - *Cardiovascular Denies shortness of breath - *Respiratory Denies shortness of breath - *Gastrointestinal Denies abdominal pain - *Genitourinary Denies abnormal periods - *Musculoskeletal Reports abnormal walking, Reports muscle weakness - Integumentary/Breasts Reports hair loss, Reports nail changes, Reports other (right foot blister) - *Neurologic Reports tingling/numbness/burning sensations - Psychiatric Reports anxiety, Reports depression - Endocrine Reports increased thirst - Hematologic/Lymphatic Reports easy bruising Meds Home Medications Medication Instructions Recorded Confirmed Type acetaminophen 500 mg tablet 1,000 mg PO Q6HP PRN #120 tab 12/11/20 05/08/21 Rx melatonin 3 mg tablet 3 mg PO HS #90 tab 12/11/20 05/08/21 Rx rivaroxaban 2.5 mg tablet 2.5 mg PO BID #180 tab 12/11/20 05/08/21 Rx Buspirone HCl [Buspar 10mg 15 mg PO TID 01/11/21 05/09/21 History tablet] albuterol sulfate 90 mcg/actuation 2 puff INHALATION Q4HP PRN #6.7 g 02/12/21 05/08/21 Rx aerosol inhaler aspirin 81 mg chewable tablet 81 mg PO DAILY #90 tab 02/15/21 05/08/21 Rx atorvastatin 80 mg tablet 80 mg PO HS #90 tab 02/15/21 05/08/21 Rx lisinopril 10 mg tablet 10 mg PO DAILY #90 tab 02/15/21 05/08/21 Rx sitagliptin 100 mg tablet 100 mg PO DAILY #90 tab 02/15/21 05/09/21 Rx Insulin Glargine,Hum.rec.anlog 10 unit SQ HS 03/03/21 05/08/21 History [Lantus Solostar 100 Units/mL 3mL flexpen] Insulin Aspart Prot/Insuln Asp 20 units SQ 0800,1600 03/04/21 05/08/21 History [Novolog Mix 70/30 Flexpen 100 Units/mL 3mL] Budesonide/Formoterol Fumarate 2 puffs IH DAILY 04/27/21 05/08/21 History [Budesonide-Formoterol 160-4.5] Furosemide [Lasix 40mg tablet] 40 mg PO BIDL 04/27/21 05/08/21 History Levothyroxine Sodium [Synthroid 150 mcg PO DAILY 06
--- NOTE | 2021-05-09 09:56 | HMH.PHACONS ---
- Pharmacy Consult Date: 05/09/21 Time: 09:56 Referring provider: DR. LAL Reason for Consult:: VANCOMYCIN DOSING Allergies and ADEs:: Allergies Allergy/AdvReac Type Severity Reaction Status Date / Time protamine Allergy Verified 04/29/21 15:30 Home Medications:: Home Medications Medication Instructions Recorded Confirmed Type acetaminophen 500 mg tablet 1,000 mg PO Q6HP PRN #120 tab 12/11/20 05/08/21 Rx melatonin 3 mg tablet 3 mg PO HS #90 tab 12/11/20 05/08/21 Rx rivaroxaban 2.5 mg tablet 2.5 mg PO BID #180 tab 12/11/20 05/08/21 Rx Buspirone HCl [Buspar 10mg 15 mg PO TID 01/11/21 05/09/21 History tablet] albuterol sulfate 90 mcg/actuation 2 puff INHALATION Q4HP PRN #6.7 g 02/12/21 05/08/21 Rx aerosol inhaler aspirin 81 mg chewable tablet 81 mg PO DAILY #90 tab 02/15/21 05/08/21 Rx atorvastatin 80 mg tablet 80 mg PO HS #90 tab 02/15/21 05/08/21 Rx lisinopril 10 mg tablet 10 mg PO DAILY #90 tab 02/15/21 05/08/21 Rx sitagliptin 100 mg tablet 100 mg PO DAILY #90 tab 02/15/21 05/09/21 Rx Insulin Glargine,Hum.rec.anlog 10 unit SQ HS 03/03/21 05/08/21 History [Lantus Solostar 100 Units/mL 3mL flexpen] Insulin Aspart Prot/Insuln Asp 20 units SQ 0800,1600 03/04/21 05/08/21 History [Novolog Mix 70/30 Flexpen 100 Units/mL 3mL] Budesonide/Formoterol Fumarate 2 puffs IH DAILY 04/27/21 05/08/21 History [Budesonide-Formoterol 160-4.5] Furosemide [Lasix 40mg tablet] 40 mg PO BIDL 04/27/21 05/08/21 History Levothyroxine Sodium [Synthroid 150 mcg PO DAILY 04/27/21 05/08/21 History 150mcg (0.15mg) tablet] clonazepam 0.5 mg tablet 0.5 mg PO TID #90 tab 05/02/21 05/08/21 Rx gabapentin 600 mg tablet 600 mg PO QID #120 tab 05/02/21 05/08/21 Rx PARoxetine HCL [Paxil 20mg Tablet] 20 mg PO DAILY 05/08/21 05/08/21 History carvediloL [Coreg 3.125mg Tablet] 3.125 mg PO BID 05/08/21 05/08/21 History Nystatin [Nystatin Topical Powder 1 applicatio TP BID 05/09/21 05/09/21 History 30GM*] Height: 1.75 m Weight: 130.861 kg Laboratory Results:: Laboratory Results - last 24 hr 05/08/21 17:23: WBC 10.5, RBC 3.82 L, Hgb 10.8 L, Hct 33.4 L, MCV 87.5, MCH 28.3, MCHC 32.4, RDW 16.6, Plt Count 343, MPV 8.6, Neut % (Auto) 69.5, Lymph % (Auto) 20.7, [place] % (Auto) 5.7, Eos % (Auto) 3.3, Baso % (Auto) 0.8, Neut # (Auto) 7.3, Lymph # (Auto) 2.2, [place] # (Auto) 0.6, Eos # (Auto) 0.3, Baso # (Auto) 0.1 05/08/21 17:23: Sodium 137, Potassium 4.4, Chloride 92 L, Carbon Dioxide 36 H, Anion Gap 13.4, BUN 40 H, Creatinine 1.10 H, Estimated Creat Clear 60, Estimated GFR 52 L, Est GFR ( Amer) 62, Glucose 279 H, Calcium 9.3, Total Bilirubin 0.3, AST 28, ALT 13, Alkaline Phosphatase 148 H, Total Protein 7.3, Albumin 4.0, Globulin 3.3 H, Albumin/Globulin Ratio 1.2 05/08/21 17:23: Lactate 1.6 05/08/21 17:40: ESR 116 H 05/08/21 17:40: C-Reactive Protein 6.1 H 05/08/21 18:00: SARS-CoV-2 (PCR) Not detected, Influenza A Untype (PCR) Not detected, Influenza Type B (PCR) Not detected 05/08/21 21:48: POC Glucose 276 H Medical History: Reports:: Anxiety, Atherosclerotic Heart Disease, Cardiomyopathy, Congestive Heart Failure, Chronic Obstructive Pulmonary Disease (COPD), Coronary Artery Disease, Cerebrovascular Accident, Depression, Diabetes Mellitus Type 2, Hyperlipidemia, Hypertension, Peripheral Artery Disease, Peripheral Vascular Disease Denies:: Cancer, Diabetes Mellitus Type 1, Internal Pacemaker, MRSA, Seizures Assessment and Plan (1) Blister of foot Status: Acute Qualifiers: Encounter type: initial encounter Laterality: right Qualified Code(s): S90.821A - Blister (nonthermal), right foot, initial encounter Category: Medical Code(s): S90.829A - Blister (nonthermal), unspecified foot, initial encounter (2) Diabetic foot infection Status: Acute Category: Medical Code(s): E11.628 - Type 2 diabetes mellitus with other skin complications; L08.9 - Local infection of the skin and subcutaneous tissue, unspecified
--- NOTE | 2021-05-09 10:07 | SW/DCPLANNER ---
Addendum entered by Gloria Castrejon 05/09/21 10:15: CORRECTION: patient is under skilled care at [facility]. Original Note: This patient currently resides at [facility]. I spoke with Yuni this morning from [facility] to confirm patient is [facility] level of care. I will continue to follow up with Yuni until patient is medically stable for discharge.
--- NOTE | 2021-05-09 10:38 | PC.NURSE ---
Pt to surgery @ approx 0919.
--- NOTE | 2021-05-09 10:57 | HMH.OPNOTE ---
Date of procedure: 05/09/21 Pre-op Diagnosis:: 1. Right foot cellulitis 2. Right foot blister 3. Right diabetic foot infection 4. Left BKA Post-op Diagnosis:: Same Procedure performed:: 1. Right foot incision and drainage 2. Right foot debridement, blister excision Surgeon:: Amy Rutledge DPM Anesthesia: none Estimated blood loss (mL): 10 Clinical Note:: Patient is a 55-year-old female who presents via the ED 05/08/2021 with a right foot blister and infection. She is from [facility]. Apparently it started as a small blister that has now spread to the entire bottom of her foot. X-ray and CT imaging showed no evidence of osteomyelitis. Patient reports general malaise but denies fever and chills. She has a left below-knee amputation. Radiographs and CT of the right foot were reviewed and discussed with the patient. Imaging shows FINDINGS: Bones/joints: Diffuse osteopenia, with superimposed greater degrees of local juxta-articular osteopenia throughout the foot and ankle, similar to the radiographic pattern back to 01/15/2021, although new since 05/16/2020. This is nonspecific in nature and could be seen with chronic disuse or complex regional pain syndrome. No localized osteolysis or periostitis was seen to suggest osteomyelitis. No articular erosive changes to suggest septic joint. Moderate plantar calcaneal spurring. Soft tissues: There are no loculated fluid collections suggestive of abscess. Moderate soft tissue swelling in the dorsal forefoot and midfoot, and anterior ankle. Large blister in the plantar forefoot distribution. There is no soft tissue air to suggest necrotizing fasciitis. No radiopaque foreign bodies are identified. IMPRESSION: 1. No CT evidence of osteomyelitis or septic joint. 2. Large blister on the plantar aspect of the forefoot noted. Moderate soft tissue swelling in the dorsal foot and anterior ankle which is nonspecific, possibly cellulitis. No evidence of abscess. No soft tissue air. 3. Generalized osteopenia with superimposed moderate juxta-articular osteopenia pattern which is new since 05/16/2020. This could relate to disuse or possibly complex regional pain syndrome. 4. Moderate plantar calcaneal spurring. We discussed conservative versus surgical treatment options. Conservative treatment options include local wound care, oral and IV antibiotics, change in shoe wear, taping/padding, and off-loading. Patient also understands that they could have wound healing complications including delayed healing and infection. We discussed that if the wound does not heal, it is possible that they may need a more proximal amputation and could result in further loss of digits, loss of partial foot or loss of leg. We discussed the risks and benefits in great detail. Other surgical risks include: prolonged pain and swelling, further infection requiring oral or IV antibiotics, delay in healing of soft tissue or bone, nerve or blood vessel damage, CRPS/RSD, DVT, anesthesia complications, and even . All questions answered. Patient verbalized understanding. Consent obtained. PCP-Dr. Patterson granted medical clearance. Pre-op labs reviewed. Concern over deep involvement or abscess. Operative findings:: Right foot plantar blister noted which extended over the fourth and fifth toes. Upon incision of the plantar blister there was not immediate serous drainage. There was a sac which measured approximately 6 x 6 cm of thickened blisterlike fluid, appeared like placental tissue in texture and color. On the back table this was incised and clear serous blisterlike fluid was expressed. Under the plantar foot, once this sac was removed, it was superficial pink and 100% granular with raw skin. It was debrided. Total area post debridement sharply excisionally with 15 blade and forceps through skin into/involving subcutaneous tissue measured 9.5 x 10 x 0.2cm. There is also at thickened blister located on the dorsal lateral aspect of the
--- NOTE | 2021-05-09 11:14 | PC.NURSE ---
Meds per mar taken when pt returned from I&D
--- NOTE | 2021-05-09 11:30 | HMH.HP ---
*Admission Date: 05/08/21 *Chief complaint: Blister R Foot *History of present illness: 55-year-old female patient presented to the emergency department from the long-term with complaints of blister on right foot. She reports it started 2 days prior and was a small blister and then awoke this morning and blister cover the entire bottom of her right foot. She denies any fever/chills/body aches or nausea/vomiting/diarrhea 05/08/[address]: FINDINGS: Bones/joints: Moderate plantar calcaneal spurring. There is generalized osteopenia present with a superimposed greater component of juxta-articular osteopenia involving the 2nd through 5th MTP joints and tarsal bones of the midfoot, unchanged from 01/15/2021. The pattern is nonspecific and could be seen with chronic disuse, chronic inflammatory arthropathy, or complex regional pain syndrome. The fairly long-term stability goes against osteomyelitis. If there is strong clinical suspicion for osteomyelitis, consider MRI. No fracture or dislocation. Soft tissues: There is moderate soft tissue swelling involving the forefoot, dorsal midfoot, and anterior ankle, which is significantly increased from prior radiographs 01/15/2021. No definite soft tissue air although CT would be more sensitive if clinically indicated. No radiopaque foreign bodies are identified. IMPRESSION: 1. Severe soft tissue swelling, nonspecific. No definite soft tissue air is seen although CT would be more sensitive if clinically indicated. 2. Chronic pattern of juxta-articular osteopenia involving the 2nd through 5th MTP joints and tarsal bones of the midfoot. The relative long-term stability of the pattern goes against osteomyelitis, please see differential considerations above. If there is strong clinical suspicion for osteomyelitis, consider MRI or 3 phase bone scan. Electronically signed by Joe Sandoval, 55-year-old female patient sitting up in bed dressing to right lower extremity. She reports that 2 day2 yesterday prior was a small blister and yesterday woke up with blister on right foot. [facility] History I have reviewed the patient's past medical history: Yes Medical History: Reports:: Anxiety, Atherosclerotic Heart Disease, Cardiomyopathy, Congestive Heart Failure, Chronic Obstructive Pulmonary Disease (COPD), Coronary Artery Disease, Cerebrovascular Accident, Depression, Diabetes Mellitus Type 2, Hyperlipidemia, Hypertension, Peripheral Artery Disease, Peripheral Vascular Disease Denies:: Cancer, Diabetes Mellitus Type 1, Internal Pacemaker, MRSA, Seizures *Have you ever received a pneumonia vaccine?: Yes *Have you received a flu vaccine this season?: Yes Other Medical History: Reports: Cataracts, Hypothyroidism, Thyroid Disease. Denies: Blood Transfusion Reaction Laterality Cases: Bilateral: Other Other Surgeries: Yes: Cardiac Catheterization, Cardiac Surgery, Colonoscopy, Coronary Stent, Thyroidectomy, Tubal Ligation, Other. No: Pacemaker Amputation: Yes (Toe left big, L BELOW THE KNEE) Fractures: No - *Social History Smoking Status: Former smoker Tobacco Type: cigarettes # Packs/Day (cigarettes): 1 #Yrs smoked (if former smoker): 30 Alcohol Intake: former Substance Use Type: denies use *Occupational Status:: disabled Housing: house Household Members: family *Travel in the last 8 weeks: None - Psychiatric History Pschychiatric History:: Reports:: Anxiety, Depression Family Hx:: Unable to obtain Review of Systems - Review of Systems Review of systems:: pertinent systems reviewed and negative unless documented below - Constitutional Reports fatigue - Eyes Denies blind spots, Denies change in vision - ENT Denies abnormal hearing, Denies dizziness - *Cardiovascular Denies chest pain, Denies shortness of breath - *Respiratory Denies chest congestion, Denies cough - *Gastrointestinal Denies abdominal pain, Denies change in stools - *Musculoskeleta
[2021-05-09 11:44] LABS: POC Glucose,Bedside 290 (70-110)
[2021-05-09 11:44] LABS: POC Glucose,Bedside 290 (70-110)
--- NOTE | 2021-05-09 15:07 | PC.NURSE ---
Pt is alert and oriented and able to make needs known. RR even and unlabored. Pt is resting at this time with eyes closed. VSS. Did have a lg bm this shift. S1,S2.Lungs cta. CB in reach. Meds per mar. Dsg to R foot is cdi. Pt does have a L BKA.
[2021-05-09 21:59] LABS: POC Glucose,Bedside 280 (70-110)
[2021-05-09 21:59] LABS: POC Glucose,Bedside 297 (70-110)
[2021-05-10] VITALS (7 sets, daily range): BP systolic 106–132; BP diastolic 52–68; PULSE 66–94; RESP 16–22; TEMP 36.5–37.1; O2SAT 93–98; BMI 43.2
--- NOTE | 2021-05-10 04:14 | PC.NURSE ---
Pt A&O x4 and has slept well this shift. Lungs diminished, on 2L NC. bowel sounds x4, abd soft and nontender. PT has not c/o pain this shift. R foot drsg CDI. IV patent, SL. VSS, call light in reach, no concerns at this time.
[2021-05-10 05:54] LABS: POC Glucose,Bedside 327 (70-110)
[2021-05-10 06:23] LABS: Basophils # 0.1 K/mm3 (0-0.2); Basophils % 0.6 % (0.1-2.0); Eosinophils # 0.4 K/mm3 (0.0-0.4); Eosinophils % 4.7 % (0.1-12.0); Hematocrit 30.4 % (37.0-47.0); Hemoglobin 9.9 g/dL (12.2-16.2); Lymphocytes % 21.5 % (10-50); Mean Corpuscular HGB Conc 32.6 g/dL (31.8-35.4); Mean Corpuscular Hemoglobin 28.2 pg (27.0-31.2); Mean Corpuscular Volume 86.3 fl (81-99); Mean Platelet Volume 8.7 fl (7.4-10.4); Monocytes # 0.8 K/mm3 (0.1-1.0); Monocytes % 8.4 % (1.7-9.3); Neutrophils # 6.1 K/mm3 (1.8-7.8); Neutrophils % 64.8 % (37.0-80.0); Platelet Count 292 K/mm3 (142-424); Red Blood Count 3.53 M/mm3 (4.20-5.40); White Blood Count 9.4 K/mm3 (4.8-10.8)
[2021-05-10 06:44] LABS: Chloride 96 mmol/L (98-107); Potassium 4.6 mmoL/L (3.5-5.1); Sodium 135 mmol/L (136-145)
[2021-05-10 06:47] LABS: Alanine Aminotransferase 13 U/L (12-78); Albumin Level 3.4 g/dl (3.5-5.0); Albumin/Globulin Ratio 1.1 (1.1-1.8); Alkaline Phosphatase 137 U/L (38-126); Anion Gap 9.6 mEq/L (5-15); Aspartate Amino Transferase 21 U/L (14-36); Bilirubin,Total 0.2 mg/dl (0.2-1.3); Blood Urea Nitrogen 36 mg/dl (7-17); Carbon Dioxide 34 mmol/L (22.0-30.0); Creatinine Clearance Estimated 64 mL/min (50-200); Estimated Glomerular Filt Rate 58 ml/min (>60); GFR (African American) 70 ML/MIN (>60); Globulin 3.1 g/dL (1.3-3.2); Total Protein,Serum 6.5 g/dl (6.3-8.2)
[2021-05-10 06:48] LABS: Calcium 8.8 mg/dl (8.4-10.2); Glucose 290 mg/dl (74-100)
--- NOTE | 2021-05-10 08:23 | HMH.ORTHPN ---
Subjective Date: 05/10/21 <Monie Arreguin - 05/10/21 08:26> Time: 08:23 <Monie Arreguin - 05/10/21 08:26> Principal diagnosis: I&D of her Right foot blister/ infection <Monie Arreguin 05/10/21 08:26> Interval history: Patient resting in bed doing very well. Patient is POV#1 for Right foot incision and drainage, Right foot debridement, blister excision. Patient states she was a little restless throughout the night, felt that the foot was tight and had some pressure to it. There was minimal amount of drainage noted through on the dressing. Patient denies any acute pain today. Patient has finished her breakfast and tolerated well. <Monie Arreguin - 05/10/21 09:20> PN: Obj Ex Vital signs: Temp Pulse Resp BP Pulse Ox 98.7 F 70 16 124/61 95 05/10/21 15:29 05/10/21 15:29 05/10/21 15:29 05/10/21 15:29 05/10/21 15:29 <Amy Rutledge - 05/10/21 18:12> Temp Pulse Resp BP Pulse Ox 97.8 F 83 18 114/58 L 94 L 05/10/21 08:00 05/10/21 08:11 05/10/21 08:00 05/10/21 08:00 05/10/21 08:00 <Monie Arreguin 05/10/21 08:26> - Constitutional no acute distress <Monie Arreguin 05/10/21 10:09> - Routine HEENT Exam Head: Present: normocephalic <Monie Arreguin 05/10/21 10:09> Eye: Present: EOMI <Monie Arreguin 05/10/21 10:09> ENT: Present: mucous membranes moist <Monie Arreguin 05/10/21 10:09> - Routine Neck Exam Present: supple, trachea midline <DorianmirnaMonie Partida 05/10/21 10:09> - Routine Respiratory Exam Absent: respiratory distress <Monie Arreguin Helga 05/10/21 10:09> - Routine Cardiovascular Exam Present: RRR <Monie Arreguin 05/10/21 10:09> - Routine Extremities Exam Present: edema (Right Foot edema and and erythema, improving), pulses intact, amputation (Left BKA ). Absent: calf tenderness <Monie Arreguin 05/10/21 10:09> - Detailed Lower Extremity Exam Top foot image: 1 - Right dorsal foot I&D, sutures intact. No drainage noted erythema resolving as well as less edema today.Site cleaned with betadine and dressed with vaseline gauze, betadine soaked 4x4, DSD, kerlex and karla wrap. <MonicamichaelMonie Helga 05/10/21 10:09> Bottom foot image: 1 - S/P 05/09/27- Right foot debridement, blister excision, incision and drainage: Sutures in place on plantar surface, no drainage noted. Skin is [place], borders are irregular from the deroofed blister. Site cleaned with betadine and dressed with vaseline gauze, betadine soaked 4x4, DSD, kerlex and karla wrap. <KallieMonie Helga 05/10/21 10:09> - Routine Skin Exam Present: erythema, warm <KallieMonie Helga 05/10/21 10:09> - Routine Neurological Exam Present: alert, oriented X3, vision grossly intact, hearing grossly intact, normal speech <KallieMonie Helga 05/10/21 10:09> - Routine Psychiatric Exam Present: normal affect, cooperative <KallieMonie Helga 05/10/21 10:09> Progress Note: A&P (1) Blister of foot Status: Acute (2) Diabetic foot infection Status: Acute (3) Cellulitis of right foot Status: Acute (4) Type 2 diabetes mellitus with diabetic neuropathy, with long-term current use of insulin Status: Chronic (5) Foot abscess, right Status: Acute <Monie Arreguin - 05/10/21 11:13> (1) Blister of foot Status: Acute (2) Diabetic foot infection Status: Acute (3) Cellulitis of right foot Status: Acute (4) Type 2 diabetes mellitus with diabetic neuropathy, with long-term current use of insulin Status: Chronic (5) Foot abscess, right Status: Acute <Amy Rutledge - 05/10/21 18:12> Assessment and Plan for All Diagnoses:: Patient seen and evaluated by myself as well as ATMOSPHERIC TECHNICIAN. Agree with documentation per ATMOSPHERIC TECHNICIAN. <Amy Rutledge - 05/10/21 18:12> PRE-OP AMPUTATION/INFECTION: Radiographs and CT of the
[2021-05-10 12:00] LABS: POC Glucose,Bedside 301 (70-110)
--- NOTE | 2021-05-10 12:42 | HMH.ACPN2 ---
Internal Medicine - PN: Subj *Date: 05/10/21 *Time: 19:30 Interval history: 55-year-old female patient sitting up in bed reports she does feel wheezing in her chest, denies any chest pain reports her right foot pain is controlled. Exam Vital signs and Labs for Last 24 Hours: Temp Pulse Resp BP Pulse Ox 97.8 F 83 18 114/58 L 94 L 05/10/21 08:00 05/10/21 08:11 05/10/21 08:00 05/10/21 08:00 05/10/21 08:00 Laboratory Results - last 24 hr 05/09/21 15:37: POC Glucose 280 H 05/09/21 21:19: POC Glucose 297 H 05/10/21 05:43: POC Glucose 327 H* 05/10/21 06:14: WBC 9.4, RBC 3.53 L, Hgb 9.9 L, Hct 30.4 L, MCV 86.3, MCH 28.2, MCHC 32.6, RDW 17.0, Plt Count 292, MPV 8.7, Neut % (Auto) 64.8, Lymph % (Auto) 21.5, [place] % (Auto) 8.4, Eos % (Auto) 4.7, Baso % (Auto) 0.6, Neut # (Auto) 6.1, Lymph # (Auto) 2.0, [place] # (Auto) 0.8, Eos # (Auto) 0.4, Baso # (Auto) 0.1 05/10/21 06:14: Sodium 135 L, Potassium 4.6, Chloride 96 L, Carbon Dioxide 34 H, Anion Gap 9.6, BUN 36 H, Creatinine 1.00, Estimated Creat Clear 64, Estimated GFR 58 L, Est GFR ( Amer) 70, Glucose 290 H, Calcium 8.8, Total Bilirubin 0.2, AST 21, ALT 13, Alkaline Phosphatase 137 H, Total Protein 6.5, Albumin 3.4 L, Globulin 3.1, Albumin/Globulin Ratio 1.1 05/10/21 11:52: POC Glucose 301 H* I & O for Last 24 hours: Intake & Output 05/07/21 05/08/21 05/09/21 05/10/21 23:59 23:59 23:59 23:59 Intake Total 1210 / 1210 240 / 240 Output Total 1400 / 1400 900 / 900 Balance -190 / -190 -660 / -660 Weight 288 lb 8 oz 288 lb 12.889 oz 292 lb 5 oz Microbiology Reports for the Last 24 Hours: Microbiology 05/09/21 08:24 Foot,Right - Drainage Gram Stain - Final 05/09/21 08:24 Foot,Right - Drainage Wound Culture - Preliminary NO GROWTH AFTER 24 HOURS 05/08/21 17:45 Foot,Right Gram Stain - Final 05/08/21 17:45 Foot,Right Wound Culture - Preliminary NO GROWTH AFTER 24 HOURS - Constitutional no acute distress, obese - *Routine HEENT Exam Head: Present: normocephalic Eye: Present: EOMI ENT: Present: mucous membranes moist - *Routine Neck Exam Present: trachea midline. Absent: tracheal deviation - *Routine Respiratory Exam Present: wheezes. Absent: accessory muscle use - *Routine Cardiovascular Exam Present: RRR - *Routine Abdominal Exam Present: soft, normoactive bowel sounds. Absent: tenderness, rigid - *Routine Extremities Exam Present: edema, pulses intact, amputation. Absent: cyanosis, clubbing - *Routine Skin Exam Present: dry, warm, wounds. Absent: intact, erythema Comments: Dressing to right lower extremity and foot clean/dry/intact - *Routine Neurological Exam Present: alert, oriented X3. Absent: motor deficit, altered mental status - Routine Psychiatric Exam Present: normal affect, normal thought process. Absent: visual hallucinations Assessment and Plan (1) Blister of foot Status: Acute Qualifiers: Encounter type: initial encounter Laterality: right Qualified Code(s): S90.821A - Blister (nonthermal), right foot, initial encounter Category: Medical Code(s): S90.829A - Blister (nonthermal), unspecified foot, initial encounter (2) Diabetic foot infection Status: Acute Category: Medical Code(s): E11.628 - Type 2 diabetes mellitus with other skin complications; L08.9 - Local infection of the skin and subcutaneous tissue, unspecified (3) Cellulitis of right foot Status: Acute Category: Medical Code(s): L03.115 - Cellulitis of right lower limb (4) Type 2 diabetes mellitus with diabetic neuropathy, with long-term current use of insulin Status: Chronic Category: Medical Code(s): E11.40 - Type 2 diabetes mellitus with diabetic neuropathy, unspecified; 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
[2021-05-10 15:53] LABS: POC Glucose,Bedside 225 (70-110)
--- NOTE | 2021-05-10 18:02 | PC.NURSE ---
Pt alert and oriented and able to make needs known. Pt is sitting up in bed currently and talking on cell phone. PT has refused to turn much this shift. Have encouraged pt to turn sides and she prefers to lie supine. Barrier cream applied to coccyx. VSS. Meds given per jan. FS-achs with ssi per jan. Lungs cta, s1,s2, bs x 4 and soft lg abd. Pt did have a small soft bm this shift. Dsg was changed per Sindhu Arreguin APRN this am and remains cdi with dsg and karla bandage.
--- NOTE | 2021-05-10 19:24 | PC.NURSE ---
RA SATS WERE 86% RETURNED PT ON 2L NC
[2021-05-11 00:01] LABS: POC Glucose,Bedside 238 (70-110)
[2021-05-11 04:00] VITALS: BP 134/71; PULSE 73; RESP 16; TEMP 36.8; O2SAT 95
--- NOTE | 2021-05-11 04:03 | PC.NURSE ---
Patient was irritable at staff due to RN not allowing her to have candy, and crackers. Rn educated patient on diabetic diet and the importance of getting her blood glucose under control. Patient also refused medications when RN was in room at 1999 and stated she doesn't take her medications until 9;45 pm. Patient then got irritated at staff because her medications were not given to her right at 9:30. but RN returned shortly after 9:30 to administer medications. Patients dressing to RLE is dry clean and intact. PAtient had good urine output and a large bowel movement. No complaints of pain. VSS. Patient voiced no further concerns to RN and rested well throughout shift.
[2021-05-11 05:09] VITALS: BMI 43.5
[2021-05-11 05:50] LABS: Basophils # 0.1 K/mm3 (0-0.2); Basophils % 0.7 % (0.1-2.0); Eosinophils # 0.4 K/mm3 (0.0-0.4); Eosinophils % 4.2 % (0.1-12.0); Hematocrit 32.3 % (37.0-47.0); Hemoglobin 10.6 g/dL (12.2-16.2); Lymphocytes # 1.9 K/mm3 (0.7-4.5); Lymphocytes % 20.8 % (10-50); Mean Corpuscular HGB Conc 32.7 g/dL (31.8-35.4); Mean Corpuscular Hemoglobin 28.9 pg (27.0-31.2); Mean Corpuscular Volume 88.3 fl (81-99); Mean Platelet Volume 8.9 fl (7.4-10.4); Monocytes # 0.8 K/mm3 (0.1-1.0); Monocytes % 8.1 % (1.7-9.3); Neutrophils # 6.2 K/mm3 (1.8-7.8); Neutrophils % 66.2 % (37.0-80.0); Platelet Count 285 K/mm3 (142-424); Red Blood Count 3.65 M/mm3 (4.20-5.40); White Blood Count 9.3 K/mm3 (4.8-10.8)
[2021-05-11 05:59] LABS: Chloride 93 mmol/L (98-107)
[2021-05-11 06:00] LABS: Potassium 4.3 mmoL/L (3.5-5.1); Sodium 137 mmol/L (136-145)
[2021-05-11 06:02] LABS: Alanine Aminotransferase 13 U/L (12-78); Alkaline Phosphatase 161 U/L (38-126); Aspartate Amino Transferase 22 U/L (14-36); Blood Urea Nitrogen 33 mg/dl (7-17); Creatinine Clearance Estimated 80 mL/min (50-200); Estimated Glomerular Filt Rate 74 ml/min (>60); GFR (African American) 90 ML/MIN (>60)
[2021-05-11 06:03] LABS: Albumin Level 3.7 g/dl (3.5-5.0); Albumin/Globulin Ratio 1.2 (1.1-1.8); Anion Gap 11.3 mEq/L (5-15); Bilirubin,Total 0.1 mg/dl (0.2-1.3); Calcium 9.2 mg/dl (8.4-10.2); Carbon Dioxide 37 mmol/L (22.0-30.0); Globulin 3.2 g/dL (1.3-3.2); Glucose 304 mg/dl (74-100); Total Protein,Serum 6.9 g/dl (6.3-8.2)
[2021-05-11 07:39] VITALS: BP 152/85; PULSE 88; RESP 20; TEMP 36.9; O2SAT 98
--- NOTE | 2021-05-11 08:48 | SW/DCPLANNER ---
PATIENT IS DISCHARGING BACK TO [facility] TODAY, SHE IS ON A BEDHOLD AND WILL BE RETURNING BACK THERE TODAY...I HAVE NOTIFIED THE FACILITY OF HER RETURNING...
--- NOTE | 2021-05-11 10:01 | HMH.ORTHPN ---
Subjective Date: 05/11/21 <Monie Arreguin - 05/11/21 10:01> Time: 08:10 <Monie Arreguin - 05/11/21 10:01> Principal diagnosis: I&D of her Right foot blister/ infection <Monie Arreguin - 05/11/21 10:01> Interval history: Patient is resting comfortably in bed this morning. She reports no new issues with the foot. <AamirBenAmy 05/11/21 13:14> PN: Obj Ex Vital signs: Temp Pulse Resp BP Pulse Ox 98.5 F 81 20 152/85 H 98 05/11/21 07:39 05/11/21 10:19 05/11/21 07:39 05/11/21 07:39 05/11/21 07:39 <Amy Rutledge 05/11/21 13:19> Temp Pulse Resp BP Pulse Ox 98.5 F 88 20 152/85 H 2 L 05/11/21 07:39 05/11/21 07:39 05/11/21 07:39 05/11/21 07:39 05/11/21 08:00 <Monie Arreguin - 05/11/21 10:01> - Constitutional no acute distress <AamirAmy 05/11/21 13:14> - Routine HEENT Exam Head: Present: normocephalic <AamirAmy 05/11/21 13:14> Eye: Present: EOMI <Amy Rutledge 05/11/21 13:14> ENT: Present: mucous membranes moist <Amy Rutledge 05/11/21 13:14> - Routine Neck Exam Present: supple <Amy Rutledge 05/11/21 13:14> - Routine Abdominal Exam Present: obese <Amy Rutledge 05/11/21 13:14> - Detailed Lower Extremity Exam Bottom foot image: 1 - S/P 05/09/27- Right foot debridement, blister excision, incision and drainage: Sutures in place on plantar surface, no drainage noted. Skin is pink, borders are irregular from the deroofed blister. <Amy Rutledge - 05/11/21 13:14> Progress Note: A&P (1) Blister of foot Status: Acute (2) Diabetic foot infection Status: Acute (3) Cellulitis of right foot Status: Acute (4) Type 2 diabetes mellitus with diabetic neuropathy, with long-term current use of insulin Status: Chronic (5) Foot abscess, right Status: Acute <KallieMonie L - 05/11/21 10:01> (1) Blister of foot Status: Acute (2) Diabetic foot infection Status: Acute (3) Cellulitis of right foot Status: Acute (4) Type 2 diabetes mellitus with diabetic neuropathy, with long-term current use of insulin Status: Chronic (5) Foot abscess, right Status: Acute <Amy Rutledge - 05/11/21 13:19> Assessment and Plan for All Diagnoses:: 05/09/21, s/p Right foot incision and drainage, foot debridement, blister excision 01/15/21, right foot wound culture: MRSA, S to Clindamycin Microbiology 05/09/21 08:24 Foot,Right - Drainage Gram Stain - Final 05/08/21 17:45 Foot,Right Gram Stain - Final 05/09/21 10:09 Foot,Right - Wound Wound Culture - Preliminary NO GROWTH AFTER 24 HOURS 05/09/21 08:24 Foot,Right - Drainage Wound Culture - Preliminary 05/08/21 17:56 Blood Blood Culture - Preliminary NO GROWTH AFTER 48 HOURS 05/08/21 17:45 Foot,Right Wound Culture - Preliminary NO GROWTH AFTER 48 HOURS 05/08/21 17:23 Blood Blood Culture - Preliminary NO GROWTH AFTER 48 HOURS Laboratory Tests 05/08/21 05/08/21 05/08/21 17:23 17:40 17:40 WBC 10.5 ESR 116 H BUN Creatinine Estimated GFR POC Glucose C-Reactive Protein 6.1 H 05/10/21 05/11/21 05/11/21 06:14 05:13 05:13 WBC 9.4 9.3 ESR BUN 33 H Creatinine 0.80 Estimated GFR 74 POC Glucose C-Reactive Protein 05/11/21 11:54 WBC ESR BUN Creatinine Estimated GFR POC Glucose 447 H* C-Reactive Protein Plan: 1. Dressing was changed today. Redressed with Xeroform over the sutures, Betadine soaked 4x4s, dry 4x4s, Kerlix and Trent. SNF: daily dressing changes as above. 2. Maintain dressing clean dry and intact to right foot, reinforce as necessary. 3. PWB in postop shoe or short fracture boot, wheelchair. 4. Continue IV antibiotics: Codyo. Await cultures. Upon d/c: Clindamycin 300mg TID x 2 w
[2021-05-11 10:19] VITALS: PULSE 81; PULSE 83
--- NOTE | 2021-05-11 10:44 | SW/DCPLANNER ---
NOTIFIED [facility] THAT THIS PATIENT WILL BE RETURNING TO HER CORRECTION BED TODAY... SHE WAS ON A 14 DAY BEDHOLD..
[2021-05-11 12:05] LABS: POC Glucose,Bedside 313 (70-110)
[2021-05-11 12:05] LABS: POC Glucose,Bedside 447 (70-110)
--- NOTE | 2021-05-11 12:46 | HMH.DCSUM ---
General - General Admission date:: 05/08/21 Discharge date: 05/11/21 HPI HPI: 55-year-old female patient presented to the emergency department from the assisted with complaints of blister on right foot. She reports it started 2 days prior and was a small blister and then awoke this morning and blister cover the entire bottom of her right foot. She denies any fever/chills/body aches or nausea/vomiting/diarrhea 05/08/[address]: FINDINGS: Bones/joints: Moderate plantar calcaneal spurring. There is generalized osteopenia present with a superimposed greater component of juxta-articular osteopenia involving the 2nd through 5th MTP joints and tarsal bones of the midfoot, unchanged from 01/15/2021. The pattern is nonspecific and could be seen with chronic disuse, chronic inflammatory arthropathy, or complex regional pain syndrome. The fairly long-term stability goes against osteomyelitis. If there is strong clinical suspicion for osteomyelitis, consider MRI. No fracture or dislocation. Soft tissues: There is moderate soft tissue swelling involving the forefoot, dorsal midfoot, and anterior ankle, which is significantly increased from prior radiographs 01/15/2021. No definite soft tissue air although CT would be more sensitive if clinically indicated. No radiopaque foreign bodies are identified. IMPRESSION: 1. Severe soft tissue swelling, nonspecific. No definite soft tissue air is seen although CT would be more sensitive if clinically indicated. 2. Chronic pattern of juxta-articular osteopenia involving the 2nd through 5th MTP joints and tarsal bones of the midfoot. The relative long-term stability of the pattern goes against osteomyelitis, please see differential considerations above. If there is strong clinical suspicion for osteomyelitis, consider MRI or 3 phase bone scan. Electronically signed by Joe Sandoval, 55-year-old female patient sitting up in bed dressing to right lower extremity. She reports that 2 day2 yesterday prior was a small blister and yesterday woke up with blister on right foot. Hospital Course Hospital Course: Laboratory Tests 05/08/21 05/08/21 05/08/21 17:23 17:23 17:23 WBC 10.5 RBC 3.82 L Hgb 10.8 L Hct 33.4 L MCV 87.5 MCH 28.3 MCHC 32.4 RDW 16.6 Plt Count 343 MPV 8.6 Neut % (Auto) 69.5 Lymph % (Auto) 20.7 [place] % (Auto) 5.7 Eos % (Auto) 3.3 Baso % (Auto) 0.8 Neut # (Auto) 7.3 Lymph # (Auto) 2.2 [place] # (Auto) 0.6 Eos # (Auto) 0.3 Baso # (Auto) 0.1 ESR Sodium 137 Potassium 4.4 Chloride 92 L Carbon Dioxide 36 H Anion Gap 13.4 BUN 40 H Creatinine 1.10 H Estimated Creat Clear 60 Estimated GFR 52 L Est GFR ( Amer) 62 Glucose 279 H POC Glucose Lactate 1.6 Calcium 9.3 Total Bilirubin 0.3 AST 28 ALT 13 Alkaline Phosphatase 148 H C-Reactive Protein Total Protein 7.3 Albumin 4.0 Globulin 3.3 H Albumin/Globulin Ratio 1.2 SARS-CoV-2 (PCR) Influenza A Untype (PCR) Influenza Type B (PCR) 05/08/21 05/08/21 05/08/21 17:40 17:40 18:00 WBC RBC Hgb Hct MCV MCH MCHC RDW Plt Count MPV Neut % (Auto) Lymph % (Auto) [place] % (Auto) Eos % (Auto) Baso % (Auto) Neut # (Auto) Lymph # (Auto) [place] # (Auto) Eos # (Auto) Baso # (Auto) ESR 116 H Sodium Potassium Chloride Carbon Dioxide Anion Gap BUN Creatinine Estimated Creat Clear Estimated GFR Est GFR ( Amer) Glucose POC Glucose Lactate Calcium Total Bilirubin AST ALT Alkaline Phosphatase C-Reactive Protein 6.1 H Total Protein Albumin Globulin Albumin/Globulin Ratio SARS-CoV-2 (PCR) Not detected Influenza A Untype (PCR) Not detected Influenza Type B (PCR) Not detected
--- NOTE | 2021-05-11 13:42 | PC.NURSE ---
attempted to call report to j[facility] but no one answers
--- NOTE | 2021-05-11 13:57 | PC.NURSE ---
Report called to [facility] notified for transport
== END 2021-05-11 14:27 ==
LOC: ER 18:10 → 2ND 21:47
PROVIDERS: Podiatrist; Admitting Provider Emergency Medicine; Emergency Provider Emergency Medicine; PCP Physician Assistant; Visit Provider Emergency Medicine
DX: E11.628 Type 2 diabetes mellitus with other skin complications (principal); E11.51 Type 2 diabetes mellitus with diabetic peripheral angiopathy without gangrene; Z79.4 Long term (current) use of insulin; I25.10 Atherosclerotic heart disease of native coronary artery without angina pectoris; L03.115 Cellulitis of right lower limb; E11.40 Type 2 diabetes mellitus with diabetic neuropathy, unspecified; L02.611 Cutaneous abscess of right foot; Z87.891 Personal history of nicotine dependence; Z95.5 Presence of coronary angioplasty implant and graft; F41.9 Anxiety disorder, unspecified; F32.9 Major depressive disorder, single episode, unspecified; E78.5 Hyperlipidemia, unspecified; I42.9 Cardiomyopathy, unspecified; I11.0 Hypertensive heart disease with heart failure; I50.9 Heart failure, unspecified; J44.9 Chronic obstructive pulmonary disease, unspecified; E03.9 Hypothyroidism, unspecified; Z89.612 Acquired absence of left leg above knee; Z86.73 Personal history of transient ischemic attack (TIA), and cerebral infarction without residual deficits; Z79.899 Other long term (current) drug therapy; Z20.822 Contact with and (suspected) exposure to COVID-19
CPT/HCPCS: 11042; 11045 ×2; 73630; 73700; 80053; 82962; 83605; 85025; 85651; 86140; 87040; 87070; 87075; 87077; 87186; 87205; 88304; 94640; 94761; 96365; 99291; G0378; J3370; U0003

== ENCOUNTER → 2021-05-24 09:57 | Outpatient (CLI) | payer MEDICARE, MEDICAID, SELFPAY ==
[2021-05-24 11:40] VITALS: BMI 44.2
--- NOTE | 2021-05-24 11:42 | XR_ITS ---
PROCEDURE: XR CHEST PORTABLE CLINICAL HISTORY: PICC placement confirmation COMPARISON: No exams were available for comparison FINDINGS: Left upper extremity PICC line has been placed. The line curls in the region of the subclavian area and extends back down toward the axilla. Consider pulling the catheter back approximately 13 cm and then trying to readvance. There is moderate patient rotation. IMPRESSION: Abnormal positioning of the PICC line on the left as described above Dictated by: Jamison Jj MD 05/24/2021 12:07 Jamison Jj MD in [facility] 05/24/2021 12:07
--- NOTE | 2021-05-24 12:23 | XR_ITS ---
PROCEDURE: XR CHEST PORTABLE CLINICAL HISTORY: verify PICC line placement COMPARISON: CR XR CHEST PORTABLE from 03/03/[address] ANGIO CHEST from 03/04/2021 CR XR CHEST PORTABLE from 04/27/2021 CR XR CHEST PORTABLE from 05/24/2021 FINDINGS: The left upper extremity PICC line has been reposition. The tip is now in the region the superior vena cava in good position. Patient is rotated with the right lateral hemithorax not completely included on the exam. IMPRESSION: Reposition PICC line tip is in good position. Dictated by: Jamison Jj MD 05/24/2021 12:55 Jamison Jj MD in [facility] 05/24/2021 12:55
== END ==
PROVIDERS: PCP Emergency Medicine; Visit Provider Emergency Medicine
DX: Z45.2 Encounter for adjustment and management of vascular access device (principal)
CPT/HCPCS: 36569; 71045; C1751

== ENCOUNTER → 2021-06-01 13:59 | Outpatient (CLI) | payer MEDICARE, MEDICAID, SELFPAY ==
[2021-06-01 15:09] LABS: Vancomycin,Trough 16.8 ug/mL (5.0-10.0)
== END ==
PROVIDERS: Visit Provider Emergency Medicine
DX: L97.419 Non-pressure chronic ulcer of right heel and midfoot with unspecified severity (principal); Z51.81 Encounter for therapeutic drug level monitoring
CPT/HCPCS: 80202

== ENCOUNTER → 2021-06-21 07:39 | Outpatient (CLI) | payer MEDICARE, MEDICAID, SELFPAY ==
[2021-06-21 14:46] LABS: Chloride 92 mmol/L (98-107); Sodium 135 mmol/L (136-145)
[2021-06-21 14:47] LABS: Potassium 4.2 mmoL/L (3.5-5.1)
[2021-06-21 14:48] LABS: Basophils # 0.1 K/mm3 (0-0.2); Basophils % 1.1 % (0.1-2.0); Eosinophils # 0.5 K/mm3 (0.0-0.4); Eosinophils % 5.4 % (0.1-12.0); Hematocrit 32.2 % (37.0-47.0); Hemoglobin 10.4 g/dL (12.2-16.2); Lymphocytes # 2.6 K/mm3 (0.7-4.5); Lymphocytes % 31.2 % (10-50); Mean Corpuscular HGB Conc 32.4 g/dL (31.8-35.4); Mean Corpuscular Hemoglobin 28.3 pg (27.0-31.2); Mean Corpuscular Volume 87.3 fl (81-99); Monocytes # 0.5 K/mm3 (0.1-1.0); Monocytes % 6.1 % (1.7-9.3); Neutrophils # 4.7 K/mm3 (1.8-7.8); Neutrophils % 56.3 % (37.0-80.0); Platelet Count 305 K/mm3 (142-424); Red Blood Count 3.69 M/mm3 (4.20-5.40); White Blood Count 8.4 K/mm3 (4.8-10.8)
[2021-06-21 14:49] LABS: Alanine Aminotransferase 11 U/L (12-78); Albumin Level 3.3 g/dl (3.5-5.0); Albumin/Globulin Ratio 1.2 (1.1-1.8); Alkaline Phosphatase 174 U/L (38-126); Anion Gap 14.2 mEq/L (5-15); Aspartate Amino Transferase 16 U/L (14-36); Bilirubin,Total 0.2 mg/dl (0.2-1.3); Blood Urea Nitrogen 20 mg/dl (7-17); Calcium 8.7 mg/dl (8.4-10.2); Carbon Dioxide 33 mmol/L (22.0-30.0); Estimated Glomerular Filt Rate 74 ml/min (>60); GFR (African American) 90 ML/MIN (>60); Globulin 2.8 g/dL (1.3-3.2); Glucose 248 mg/dl (74-100); Total Protein,Serum 6.1 g/dl (6.3-8.2)
[2021-06-21 14:55] LABS: C-Reactive Protein 10.3 mg/L (0-4)
[2021-06-21 17:01] LABS: Erythrocyte Sedimentation Rate 132 mm/hr (0-30)
== END ==
PROVIDERS: Visit Provider Emergency Medicine
DX: E11.40 Type 2 diabetes mellitus with diabetic neuropathy, unspecified (principal); Z79.4 Long term (current) use of insulin
CPT/HCPCS: 36415; 80053; 85025; 85651; 86140

== ENCOUNTER → 2021-07-05 06:45 | Outpatient (CLI) | payer MEDICARE, MEDICAID, SELFPAY ==
[2021-07-05 09:43] LABS: Basophils # 0.1 K/mm3 (0-0.2); Basophils % 0.7 % (0.1-2.0); Eosinophils # 0.4 K/mm3 (0.0-0.4); Eosinophils % 4.6 % (0.1-12.0); Hematocrit 36.6 % (37.0-47.0); Hemoglobin 11.2 g/dL (12.2-16.2); Lymphocytes # 1.9 K/mm3 (0.7-4.5); Lymphocytes % 20.8 % (10-50); Mean Corpuscular HGB Conc 30.5 g/dL (31.8-35.4); Mean Corpuscular Hemoglobin 28.5 pg (27.0-31.2); Mean Corpuscular Volume 93.4 fl (81-99); Mean Platelet Volume 9.3 fl (7.4-10.4); Monocytes # 0.5 K/mm3 (0.1-1.0); Monocytes % 5.1 % (1.7-9.3); Neutrophils # 6.3 K/mm3 (1.8-7.8); Neutrophils % 68.9 % (37.0-80.0); Platelet Count 352 K/mm3 (142-424); Red Blood Count 3.92 M/mm3 (4.20-5.40); Red Cell Distribution Width 15.1 % (11.5-17.5); White Blood Count 9.2 K/mm3 (4.8-10.8)
[2021-07-05 10:20] LABS: Erythrocyte Sedimentation Rate 71 mm/hr (0-30)
[2021-07-05 10:28] LABS: Chloride 90 mmol/L (98-107); Sodium 132 mmol/L (136-145)
[2021-07-05 10:31] LABS: Blood Urea Nitrogen 22 mg/dl (7-17); Estimated Glomerular Filt Rate 74 ml/min (>60); GFR (African American) 90 ML/MIN (>60)
[2021-07-05 10:32] LABS: Calcium 9.2 mg/dl (8.4-10.2); Carbon Dioxide 33 mmol/L (22.0-30.0); Glucose 238 mg/dl (74-100)
[2021-07-05 10:34] LABS: Anion Gap 13.6 mEq/L (5-15); Potassium 4.6 mmoL/L (3.5-5.1)
[2021-07-05 10:41] LABS: C-Reactive Protein 10.3 mg/L (0-4)
== END ==
PROVIDERS: Visit Provider Emergency Medicine
DX: E11.40 Type 2 diabetes mellitus with diabetic neuropathy, unspecified (principal); Z79.4 Long term (current) use of insulin
CPT/HCPCS: 36415; 80048; 85025; 85651; 86140

== ENCOUNTER → 2021-07-19 07:22 | Outpatient (CLI) | payer MEDICARE, MEDICAID, SELFPAY ==
[2021-07-19 09:03] LABS: Basophils # 0.1 K/mm3 (0-0.2); Eosinophils # 0.5 K/mm3 (0.0-0.4); Eosinophils % 4.9 % (0.1-12.0); Hematocrit 37.5 % (37.0-47.0); Hemoglobin 11.5 g/dL (12.2-16.2); Lymphocytes # 2.8 K/mm3 (0.7-4.5); Mean Corpuscular HGB Conc 30.7 g/dL (31.8-35.4); Mean Corpuscular Hemoglobin 28.7 pg (27.0-31.2); Mean Corpuscular Volume 93.5 fl (81-99); Mean Platelet Volume 9.4 fl (7.4-10.4); Monocytes # 0.5 K/mm3 (0.1-1.0); Monocytes % 4.6 % (1.7-9.3); Neutrophils # 6.9 K/mm3 (1.8-7.8); Neutrophils % 63.6 % (37.0-80.0); Platelet Count 323 K/mm3 (142-424); Red Blood Count 4.01 M/mm3 (4.20-5.40); Red Cell Distribution Width 15.4 % (11.5-17.5); White Blood Count 10.8 K/mm3 (4.8-10.8)
[2021-07-19 09:23] LABS: Chloride 94 mmol/L (98-107); Potassium 4.7 mmoL/L (3.5-5.1); Sodium 137 mmol/L (136-145)
[2021-07-19 09:26] LABS: Anion Gap 14.7 mEq/L (5-15); Blood Urea Nitrogen 30 mg/dl (7-17); Calcium 9.5 mg/dl (8.4-10.2); Carbon Dioxide 33 mmol/L (22.0-30.0); Estimated Glomerular Filt Rate 74 ml/min (>60); GFR (African American) 90 ML/MIN (>60); Glucose 167 mg/dl (74-100)
[2021-07-19 09:32] LABS: C-Reactive Protein 13.1 mg/L (0-4)
[2021-07-19 11:28] LABS: Erythrocyte Sedimentation Rate 131 mm/hr (0-30)
== END ==
PROVIDERS: Visit Provider Emergency Medicine
DX: E11.40 Type 2 diabetes mellitus with diabetic neuropathy, unspecified (principal); I25.10 Atherosclerotic heart disease of native coronary artery without angina pectoris
CPT/HCPCS: 36415; 80048; 85025; 85651; 86140

== ENCOUNTER → 2021-07-24 15:16 | Outpatient (CLI) | payer MEDICARE, MEDICAID, SELFPAY ==
--- NOTE | 2021-07-24 15:21 | XR_ITS ---
PROCEDURE: XR FOOT WT BEARING RT 3V CLINICAL INDICATION: Wound COMPARISON: CR XR FOOT RT MIN 3V from 07/06/2020 CR XR FOOT LT MIN 3V from 07/06/2020 CR XR FOOT WT BEARING RT 3V from 01/15/2021 CR XR FOOT RT MIN 3V from 05/08/2021 FINDINGS: There is diffuse osteopenia in the midfoot region similar to the previous exam. No acute fracture or dislocation. No bony destructive process apparent. Other findings:None. IMPRESSION: No change diffuse midfoot osteopenia nonspecific but could be seen with complex regional pain syndrome Dictated by: Jamison Jj MD 07/24/2021 18:11 Jamison Jj MD in [facility] 07/24/2021 18:11
== END ==
PROVIDERS: PCP Physician Assistant; Visit Provider Podiatrist
DX: Z51.89 Encounter for other specified aftercare (principal); L89.613 Pressure ulcer of right heel, stage 3; E11.621 Type 2 diabetes mellitus with foot ulcer; L97.519 Non-pressure chronic ulcer of other part of right foot with unspecified severity; L03.115 Cellulitis of right lower limb; Z79.4 Long term (current) use of insulin
CPT/HCPCS: 73630; 87070; 87077; 87186; 87205

== ENCOUNTER → 2021-07-26 06:46 | Outpatient (CLI) | payer MEDICARE, MEDICAID, SELFPAY ==
[2021-07-26 14:15] LABS: Basophils # 0.1 K/mm3 (0-0.2); Basophils % 0.7 % (0.1-2.0); Eosinophils # 0.5 K/mm3 (0.0-0.4); Eosinophils % 4.4 % (0.1-12.0); Hematocrit 32.3 % (37.0-47.0); Hemoglobin 11.2 g/dL (12.2-16.2); Lymphocytes # 2.4 K/mm3 (0.7-4.5); Mean Corpuscular HGB Conc 34.8 g/dL (31.8-35.4); Mean Corpuscular Hemoglobin 32.2 pg (27.0-31.2); Mean Corpuscular Volume 92.7 fl (81-99); Mean Platelet Volume 9.6 fl (7.4-10.4); Monocytes # 0.5 K/mm3 (0.1-1.0); Monocytes % 4.9 % (1.7-9.3); Neutrophils # 7.1 K/mm3 (1.8-7.8); Neutrophils % 67.1 % (37.0-80.0); Platelet Count 276 K/mm3 (142-424); Red Blood Count 3.49 M/mm3 (4.20-5.40); Red Cell Distribution Width 15.1 % (11.5-17.5); White Blood Count 10.6 K/mm3 (4.8-10.8)
[2021-07-26 14:20] LABS: Anion Gap 11.3 mEq/L (5-15); Blood Urea Nitrogen 25 mg/dl (7-17); Calcium 9.2 mg/dl (8.4-10.2); Carbon Dioxide 34 mmol/L (22.0-30.0); Chloride 93 mmol/L (98-107); Estimated Glomerular Filt Rate 74 ml/min (>60); GFR (African American) 90 ML/MIN (>60); Glucose 189 mg/dl (74-100); Potassium 4.3 mmoL/L (3.5-5.1); Sodium 134 mmol/L (136-145)
[2021-07-26 14:26] LABS: C-Reactive Protein 9.3 mg/L (0-4)
[2021-07-26 14:57] LABS: Erythrocyte Sedimentation Rate 108 mm/hr (0-30)
== END ==
PROVIDERS: Visit Provider Emergency Medicine
DX: E11.40 Type 2 diabetes mellitus with diabetic neuropathy, unspecified (principal); L97.519 Non-pressure chronic ulcer of other part of right foot with unspecified severity; L02.611 Cutaneous abscess of right foot; I10 Essential (primary) hypertension; E03.9 Hypothyroidism, unspecified; E78.5 Hyperlipidemia, unspecified; Z79.4 Long term (current) use of insulin
CPT/HCPCS: 36415; 80048; 85025; 85651; 86140

== ENCOUNTER → 2021-08-02 06:47 | Outpatient (CLI) | payer MEDICARE, MEDICAID, SELFPAY ==
[2021-08-02 13:13] LABS: Basophils # 0.1 K/mm3 (0-0.2); Basophils % 1.4 % (0.1-2.0); Eosinophils # 0.4 K/mm3 (0.0-0.4); Hematocrit 35.6 % (37.0-47.0); Hemoglobin 11.2 g/dL (12.2-16.2); Lymphocytes # 2.4 K/mm3 (0.7-4.5); Lymphocytes % 32.9 % (10-50); Mean Corpuscular HGB Conc 31.5 g/dL (31.8-35.4); Mean Corpuscular Volume 91.8 fl (81-99); Monocytes # 0.4 K/mm3 (0.1-1.0); Monocytes % 5.2 % (1.7-9.3); Neutrophils # 3.9 K/mm3 (1.8-7.8); Neutrophils % 54.5 % (37.0-80.0); Platelet Count 356 K/mm3 (142-424); Red Blood Count 3.88 M/mm3 (4.20-5.40); Red Cell Distribution Width 15.4 % (11.5-17.5); White Blood Count 7.2 K/mm3 (4.8-10.8)
[2021-08-02 13:15] LABS: Chloride 90 mmol/L (98-107); Sodium 130 mmol/L (136-145)
[2021-08-02 13:18] LABS: Blood Urea Nitrogen 25 mg/dl (7-17); Carbon Dioxide 31 mmol/L (22.0-30.0); Estimated Glomerular Filt Rate 47 ml/min (>60); GFR (African American) 56 ML/MIN (>60)
[2021-08-02 13:19] LABS: Glucose 144 mg/dl (74-100)
[2021-08-02 13:24] LABS: C-Reactive Protein 6.9 mg/L (0-4)
[2021-08-02 13:55] LABS: Erythrocyte Sedimentation Rate 91 mm/hr (0-30)
== END ==
PROVIDERS: Visit Provider Emergency Medicine
DX: E11.40 Type 2 diabetes mellitus with diabetic neuropathy, unspecified (principal)
CPT/HCPCS: 36415; 80048; 85025; 85651; 86140

== ENCOUNTER 2021-08-03 09:30 | Outpatient (RCR) | payer MEDICARE, MEDICAID, SELFPAY ==
--- NOTE | 2021-07-09 11:14 | HMH.PTOPWND ---
Rehab Outpt Wound Evaluation Rehab OP Wound Evaluation Start: 07/09/21 10:06 Freq: Status: Active Protocol: Document 07/09/21 11:02 LAURA (Rec: 07/09/21 11:13 PHOCHEL [id number]) Electronically Signed By Home Drew, PT 07/09/21 11:02 Subjective/History History History Pt is 55 yowf joseline presents with chronic R foot wounds x at least 2-3 mos. She has chronic R heel ulcer and more recent R lateral foot wounds due to multiple co-morbidities including DM-II and CVA with R hemiparesis. She currently resides in a [facility] and has been receiving daily dressing changes with betadine and gauze to lateral R foot and santyl to heel ulcer. She is non-ambulatory due to R hemiparesis and prior L BKA. Subjective Subjective She reports burning in R heel wound fairly constantly. Wound Eval Wound Right Lateral Foot Wound Type Diabetic Foot Ulcer Is This a Chronic Wound Yes Wound Length (cm) 5.6 Wound Width (cm) 3.4 Wound Bed Appearance Beefy Red,Yellow,Eschar Percentage Granulated (%) 5 Percentage of Eschar (Black) (%) 95 Wound Margins Description Well Defined Surrounding Tissue Appearance [place] Drainage Description Sanguineous Drainage Amount Scant Wound Topical Solution/Irrigant Saline Irrigant Primary Dressing Composite Comment optifoam gentle border Wound Debridement Method Gauze,Mechanical Wound Debridement Amount of Tissue Minimal Removed Dressing Change Patient Tolerance Tolerated Well Right Posterior Heel Wound Type Diabetic Foot Ulcer Is This a Chronic Wound Yes Wound Length (cm) 1.0 Wound Width (cm) 1.5 Wound Bed Appearance Eschar Percentage of Eschar (Black) (%) 100 Wound Margins Description Well Defined Drainage Amount None Primary Dressing Composite Comment optifoam gentle border Wound Debridement Method Gauze,Mechanical Dressing Change Patient Tolerance Tolerated Well Wound Problems/Impairments Impairments Problems/Impairmments Palpation Tenderness,Impaired Strength,Impaired Transfers, Impaired Gait Pattern,Impaired
== END 2021-08-03 09:35 | disposition home or self-care (01) ==
LOC: PT 09:30
PROVIDERS: PCP Emergency Medicine; Visit Provider Podiatrist
DX: E11.621 Type 2 diabetes mellitus with foot ulcer (principal); L97.411 Non-pressure chronic ulcer of right heel and midfoot limited to breakdown of skin; L97.519 Non-pressure chronic ulcer of other part of right foot with unspecified severity
CPT/HCPCS: 97162; 97597

== ENCOUNTER → 2021-08-09 07:03 | Outpatient (CLI) | payer MEDICARE, MEDICAID, SELFPAY ==
[2021-08-09 13:50] LABS: Basophils # 0.1 K/mm3 (0-0.2); Basophils % 0.7 % (0.1-2.0); Eosinophils # 0.4 K/mm3 (0.0-0.4); Eosinophils % 5.3 % (0.1-12.0); Hematocrit 35.1 % (37.0-47.0); Hemoglobin 11.4 g/dL (12.2-16.2); Lymphocytes # 2.8 K/mm3 (0.7-4.5); Lymphocytes % 33.3 % (10-50); Mean Corpuscular HGB Conc 32.5 g/dL (31.8-35.4); Mean Corpuscular Hemoglobin 29.5 pg (27.0-31.2); Mean Corpuscular Volume 90.6 fl (81-99); Mean Platelet Volume 9.9 fl (7.4-10.4); Monocytes # 0.6 K/mm3 (0.1-1.0); Monocytes % 6.9 % (1.7-9.3); Neutrophils # 4.5 K/mm3 (1.8-7.8); Neutrophils % 53.8 % (37.0-80.0); Platelet Count 248 K/mm3 (142-424); Red Blood Count 3.87 M/mm3 (4.20-5.40); Red Cell Distribution Width 15.4 % (11.5-17.5); White Blood Count 8.4 K/mm3 (4.8-10.8)
[2021-08-09 14:03] LABS: Chloride 89 mmol/L (98-107); Sodium 129 mmol/L (136-145)
[2021-08-09 14:04] LABS: Potassium 4.9 mmoL/L (3.5-5.1)
[2021-08-09 14:07] LABS: Anion Gap 11.9 mEq/L (5-15); Blood Urea Nitrogen 23 mg/dl (7-17); Calcium 8.7 mg/dl (8.4-10.2); Carbon Dioxide 33 mmol/L (22.0-30.0); Estimated Glomerular Filt Rate 58 ml/min (>60); GFR (African American) 70 ML/MIN (>60); Glucose 141 mg/dl (74-100)
[2021-08-09 14:13] LABS: C-Reactive Protein 27.8 mg/L (0-4)
[2021-08-09 14:34] LABS: Erythrocyte Sedimentation Rate 59 mm/hr (0-30)
== END ==
PROVIDERS: Visit Provider Emergency Medicine
DX: E11.621 Type 2 diabetes mellitus with foot ulcer (principal); L97.519 Non-pressure chronic ulcer of other part of right foot with unspecified severity; Z79.4 Long term (current) use of insulin
CPT/HCPCS: 36415; 80048; 85025; 85651; 86140

== ENCOUNTER 2021-08-13 14:33 | Emergency (ER) | payer MEDICARE, MEDICAID, SELFPAY ==
[2021-08-13 14:33] VITALS: BP 154/73; PULSE 77; RESP 18; TEMP 36.7; O2SAT 88; BMI 50.8
--- NOTE | 2021-08-13 14:42 | XR_ITS ---
PROCEDURE: XR KNEE RT 3V CLINICAL INDICATION: fall COMPARISON: CR XR KNEE RT 3V from 12/04/2020 CR XR KNEE LT 3V from 12/04/2020 FINDINGS: There is a faint transverse lucency at the base of the medial tibial spine which could represent a nondisplaced fracture. There are mild tricompartmental osteoarthritic changes are present. There is diffuse vascular calcification. Other findings:None. IMPRESSION: Possible nondisplaced fracture through the medial tibial spine. CT may confirm. Dictated by: Jamison Jj MD 08/13/2021 15:03 Jamison Jj MD in [facility] 08/13/2021 15:03
--- NOTE | 2021-08-13 14:42 | CT_ITS ---
PROCEDURE: CT HEAD/BRAIN WO CON CLINICAL INDICATION: fall Head injury with headache/pain, contusion, abrasion or hematoma COMPARISON: CT CT HEAD/BRAIN WO CON from 10/24/2019 TECHNIQUE: Axial images obtained. All CT scans at the facility use one or more dose reduction, viz: automated exposure control, ma/kV adjustment per patient size (including targeted exams where dose is matched to indication, i.e. head), or iterative reconstruction technique. FINDINGS: No midline shift, mass effect, intracranial hemorrhage, hydrocephalus, or extra-axial fluid collection is evident. There is generalized atrophy with hypoattenuation of the periventricular white matter consistent with microangiopathic changes.. There are old bilateral lacunar infarctions of the basal ganglia. The calvarium has an unremarkable appearance. No mastoid effusion. No sinus air-fluid level. IMPRESSION: No acute intracranial finding Dictated by: Jamison Jj MD 08/13/2021 15:35 Jamison Jj MD in [facility] 08/13/2021 15:35
--- NOTE | 2021-08-13 14:42 | CT_ITS ---
PROCEDURE: CT CERVICAL SPINE WO CON CLINICAL INDICATION: fall Neck injury with pain, contusion/abrasion or hematoma, cervical sprain/strain the COMPARISON: No exams were available for comparison TECHNIQUE: Axial images obtained with sagittal and coronal reformats. All CT scans at the facility use one or more dose reduction, viz: automated exposure control, ma/kV adjustment per patient size (including targeted exams where dose is matched to indication, i.e. head), or iterative reconstruction technique. Axial spiral CT scanning performed of the cervical spine beginning at the base of the skull and continuing to the upper T-spine. 3-D multiplanar reconstruction with 3-D manipulation of volumetric data set in image rendering was completed by the radiologist and/or technologist with the supervision of the radiologist on independent workstation. FINDINGS: No fracture nor subluxation is evident. Normal prevertebral soft tissues. Facets, neural foramen and vertebral bodies intact and unremarkable. Normal C1/C2 relationships. Apices of lungs are clear with no acute findings. IMPRESSION: Cervical spine intact with no fracture nor subluxation. Dictated by: Jamison Jj MD 08/13/2021 15:37 Jamison Jj MD in [facility] 08/13/2021 15:37
--- NOTE | 2021-08-13 15:30 | CT_ITS ---
PROCEDURE INFORMATION: Exam: CT Right Lower Extremity Without Contrast; Lower Leg Exam date and time: 08/13/2021 3:30 PM Age: 55 years old Clinical indication: Abnormal findings; Abnormal imaging study; Right knee xray; Additional info: Abnl xray, possible FX TECHNIQUE: Imaging protocol: CT of the Right lower extremity without contrast was performed. Exam focused on the lower leg. 3D rendering (Not supervised by radiologist): MIP and/or 3D reconstructed images were created by the technologist. Radiation optimization: All CT scans at this facility use at least one of these dose optimization techniques: automated exposure control; mA and/or kV adjustment per patient size (includes targeted exams where dose is matched to clinical indication); or iterative reconstruction. COMPARISON: CT FOOT RT WO CON 05/09/2021 12:06 AM FINDINGS: Bones/joints: Bones are osteopenic. There is fracture involving the medial tibial plateau. The fracture is minimally depressed. The area of the fracture on the articulating surfaces about 20 x 40 mm. See image 98 of series 4. The fracture line descends to the medial metaphyseal cortex about 25 mm inferiorly. Soft tissues: Soft tissues notable for a small joint effusion that is incompletely included. Mild subcutaneous soft tissue swelling as well. IMPRESSION: Minimally depressed medial tibial plateau fracture
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
[2021-08-13 16:30] VITALS: BP 145/72; PULSE 73; RESP 16; O2SAT 93
[2021-08-13 17:00] VITALS: BP 150/85; RESP 16; O2SAT 94
[2021-08-13 17:31] VITALS: BP 166/74; RESP 16; O2SAT 94
--- NOTE | 2021-08-13 17:48 | PC.NURSE ---
DR RUSSO SPEAKING WITH DR HUDSON
--- NOTE | 2021-08-13 19:08 | PC.NURSE ---
[facility] CAME IN WITH ANOTHER PT , AND THEY AGREED TO TAKE PT BACK TO [facility]
--- NOTE | 2021-08-13 19:15 | PC.NURSE ---
REPORT GIVEN TO EMS
[2021-08-13 19:45] VITALS: BP 166/74; PULSE 61; RESP 20; TEMP 36.7; O2SAT 94
== END 2021-08-13 19:46 | disposition home or self-care (01) ==
PROVIDERS: Emergency Provider Family Medicine; PCP Physician Assistant
DX: S82.141A Displaced bicondylar fracture of right tibia, initial encounter for closed fracture (principal); W07.XXXA Fall from chair, initial encounter; Y92.481 Parking lot as the place of occurrence of the external cause; I50.9 Heart failure, unspecified; I25.10 Atherosclerotic heart disease of native coronary artery without angina pectoris; E03.9 Hypothyroidism, unspecified; E78.5 Hyperlipidemia, unspecified; F41.8 Other specified anxiety disorders; I10 Essential (primary) hypertension; Z79.01 Long term (current) use of anticoagulants
CPT/HCPCS: 70450; 72125; 73562; 73700; 99283

== ENCOUNTER → 2021-08-27 07:06 | Outpatient (CLI) | payer MEDICARE, MEDICAID, SELFPAY ==
[2021-08-27 14:10] LABS: Chloride 92 mmol/L (98-107); Sodium 132 mmol/L (136-145)
[2021-08-27 14:13] LABS: Blood Urea Nitrogen 26 mg/dl (7-17); Calcium 8.6 mg/dl (8.4-10.2); Carbon Dioxide 34 mmol/L (22.0-30.0); Estimated Glomerular Filt Rate 104 ml/min (>60); GFR (African American) 126 ML/MIN (>60); Glucose 188 mg/dl (74-100)
[2021-08-27 14:23] LABS: C-Reactive Protein 13.1 mg/L (0-4)
== END ==
PROVIDERS: Visit Provider Nurse Practitioner Family
DX: I11.9 Hypertensive heart disease without heart failure (principal)
CPT/HCPCS: 36415; 80048; 86140

== ENCOUNTER → 2021-10-16 14:11 | Outpatient (CLI) | payer MEDICARE, MEDICAID, SELFPAY ==
--- NOTE | 2021-10-16 14:18 | XR_ITS ---
PROCEDURE: XR KNEE RT 3V CLINICAL INDICATION: right tibitial plateau fx COMPARISON: CR XR KNEE RT 3V from 12/04/2020 CR XR KNEE LT 3V from 12/04/[address] LOWER LEG RT WO CON from 08/13/2021 CR XR KNEE RT 3V from 08/13/2021 FINDINGS: Minimally depressed medial tibial plateau fracture once again noted. There is osteosclerosis of the medial tibial plateau and proximal tibia suggesting healing fracture. Fracture line is less visible at the tibial spine medially. There is also a zone of osteosclerosis along the lateral aspect of the proximal tibia which could also be related to healing fracture. There is generalized vascular calcification. Small knee joint effusion noted with mild osteoarthritic changes of the knee. IMPRESSION: Healing medial tibial plateau fracture minimally depressed. Sclerosis is also present along the lateral aspect of the proximal tibia could also be related to healing fracture. Dictated by: Jamison Jj MD 10/16/2021 15:46 Jamison Jj MD in [facility] 10/16/2021 15:46
== END ==
PROVIDERS: PCP Physician Assistant; Visit Provider Orthopaedic Surgery
DX: S82.141A Displaced bicondylar fracture of right tibia, initial encounter for closed fracture (principal)
CPT/HCPCS: 73562

== ENCOUNTER 2021-10-27 15:57 | Inpatient (IN) | payer MEDICARE, MEDICAID, SELFPAY ==
[2021-10-27] VITALS (17 sets, daily range): BP systolic 80–138; BP diastolic 37–66; PULSE 67–119; RESP 16–28; TEMP 37.2–39.1; O2SAT 87–100; BMI 42.0; BMI 42.3
--- NOTE | 2021-10-27 16:06 | HMH.EDGENADL ---
ED Disposition Clinical Impression: Pyelonephritis Sepsis Qualifiers: Sepsis type: sepsis due to unspecified organism Sepsis acute organ dysfunction status: without acute organ dysfunction Qualified Code(s): A41.9 - Sepsis, unspecified organism Disposition: Admitted As Inpatient Condition on Discharge: Fair - Critical Care Critical Care Time: Yes Attestation: On , the high probability of a clinically significant, sudden or life threatening deterioration of the following system(s) required my full and direct attention, intervention and personal management. The time I documented below is in addition to time spent performing reported procedures but includes the following listed in this critical care notation. Vital system(s) involved:: Shock (Septic) My critical care processes included: Assessment & monitoring of V/S, Initial and Re-exams, Data Review/Interpretation, Coordinating Care, Documentation Medical Decision Making - Medical Records Medical records reviewed: Yes: I reviewed the patient's medical records. - Edgar Inquiry Pt receiving controlled substance: No Vital Signs: 10/27/21 15:58 10/27/21 16:30 10/27/21 17:06 Temperature 102.4 F H Temperature Source Rectal Pulse Rate 98 H 88 Pulse Rate [Radial] 119 H Respiratory Rate 28 H 18 16 Blood Pressure 102/60 L 89/51 L Blood Pressure [Right Arm] 80/49 L Blood Pressure Mean 74 63 Blood Pressure Mean [Right Arm] 59 Blood Pressure Position [Right Arm] Sitting 02 Sat by Pulse Oximetry 87 L 94 L 96 Oxygen Delivery Method Room Air 10/27/21 17:30 10/27/21 18:00 10/27/21 19:31 Temperature 99.0 F Temperature Source Rectal Pulse Rate 94 H 84 Pulse Rate [Radial] Respiratory Rate 18 20 Blood Pressure 89/46 L 85/44 L Blood Pressure [Right Arm] Blood Pressure Mean 63 57 Blood Pressure Mean [Right Arm] Blood Pressure Position [Right Arm] 02 Sat by Pulse Oximetry 94 L 94 L Oxygen Delivery Method - Lab Data Lab results reviewed: Yes: I reviewed the patient's lab results. Lab Results 10/27/21 15:50: WBC 25.1 H*, RBC 4.06 L, Hgb 12.1 L, Hct 36.2 L, MCV 89.1, MCH 29.7, MCHC 33.3, RDW 15.7, Plt Count 379, MPV 8.3, Neut % (Auto) 88.9 H, Lymph % (Auto) 6.9 L, [place] % (Auto) 3.2, Eos % (Auto) 0.5, Baso % (Auto) 0.4, Neut # (Auto) 22.3 H, Lymph # (Auto) 1.7, [place] # (Auto) 0.8, Eos # (Auto) 0.1, Baso # (Auto) 0.1, Total Counted 100, Neutrophils % (Manual) 85 H, Band Neutrophils % 2.0, Lymphocytes % (Manual) 6 L, Monocytes % (Manual) 7, Platelet Estimate Normal 10/27/21 15:50: Sodium 133 L, Potassium 5.1, Chloride 91 L, Carbon Dioxide 32 H, Anion Gap 15.1 H, BUN 32 H, Creatinine 0.90, Estimated Creat Clear 74, Estimated GFR 65, Est GFR ( Amer) 79, Glucose 206 H, Calcium 9.1, Total Bilirubin 0.2, AST 26, ALT 21, Alkaline Phosphatase 109, Total Protein 7.6, Albumin 4.2, Globulin 3.4 H, Albumin/Globulin Ratio 1.2 10/27/21 15:50: Lactate 1.8 10/27/21 15:50: Urine Color Yellow, Urine Appearance Clear, Urine pH 6.0, Ur Specific [place] 1.015, Urine Protein 1+, Urine Glucose (UA) Negative, Urine Ketones Negative, Urine Blood 3+, Urine Nitrate Negative, Urine Bilirubin Negative, Urine Urobilinogen 0.2, Ur Leukocyte Esterase 3+ A, Urine RBC 20-50, Urine WBC 20-50 10/27/21 15:50: Troponin I 0.06 H 10/27/21 16:50: SARS-CoV-2 (PCR) Not detected, Influenza A Untype (PCR) Not detected, Influenza Type B (PCR) Not detected Result diagrams: 10/27/21 15:50 10/27/21 15:50 Orders (Tests/Meds): ED MEDICATIONS Generic Name Dose Route Start Last Admin Trade Name Freq PRN Reason Stop Dose Admin Acetaminophen 650 mg 10/27/21 19:26 Acetaminophen 325mg Tab PO 11/26/21 19:25 Q4HP PRN Fever or Mild Pain Albuterol Sulfate puffs 10/27/21 19:30 Albuterol-Hfa 90mcg/Puff Inhaler 8gm IH 11/26/21 19:29 Q4HP PRN Shortness Of Breath Aspirin 81 mg 10/28/21 09:00 Aspirin 81mg Chewable Tablet PO 11/27/21 08:59 [place]
--- NOTE | 2021-10-27 16:12 | XR_ITS ---
PROCEDURE INFORMATION: Exam: XR Chest Exam date and time: 10/27/2021 4:12 PM Age: 55 years old Clinical indication: Cough TECHNIQUE: Imaging protocol: XR of the chest. Views: 1 view. COMPARISON: CR XR CHEST PORTABLE 05/24/2021 12:28 PM FINDINGS: Lungs: Minimal left basilar atelectasis or scarring. Pleural spaces: Unremarkable. No pleural effusion. No pneumothorax. Heart/Mediastinum: Mild cardiomegaly. Vasculature: Atherosclerotic disease of the thoracic aorta. Bones/joints: No acute abnormality. IMPRESSION: No acute cardiopulmonary abnormality.
[2021-10-27 16:23] LABS: Basophils # 0.1 K/mm3 (0-0.2); Basophils % 0.4 % (0.1-2.0); Eosinophils # 0.1 K/mm3 (0.0-0.4); Eosinophils % 0.5 % (0.1-12.0); Hematocrit 36.2 % (37.0-47.0); Hemoglobin 12.1 g/dL (12.2-16.2); Lymphocytes # 1.7 K/mm3 (0.7-4.5); Lymphocytes % 6.9 % (10-50); Mean Corpuscular HGB Conc 33.3 g/dL (31.8-35.4); Mean Corpuscular Hemoglobin 29.7 pg (27.0-31.2); Mean Corpuscular Volume 89.1 fl (81-99); Mean Platelet Volume 8.3 fl (7.4-10.4); Monocytes # 0.8 K/mm3 (0.1-1.0); Monocytes % 3.2 % (1.7-9.3); Neutrophils # 22.3 K/mm3 (1.8-7.8); Neutrophils % 88.9 % (37.0-80.0); Platelet Count 379 K/mm3 (142-424); Red Blood Count 4.06 M/mm3 (4.20-5.40); Red Cell Distribution Width 15.7 % (11.5-17.5); White Blood Count 25.1 K/mm3 (4.8-10.8)
[2021-10-27 16:29] LABS: Microscopic, Urine URINE MICROSCOPIC (MICROSCOPIC)
[2021-10-27 16:36] LABS: Chloride 91 mmol/L (98-107); Sodium 133 mmol/L (136-145)
[2021-10-27 16:37] LABS: Potassium 5.1 mmoL/L (3.5-5.1)
[2021-10-27 16:39] LABS: Alanine Aminotransferase 21 U/L (12-78); Albumin Level 4.2 g/dl (3.5-5.0); Albumin/Globulin Ratio 1.2 (1.1-1.8); Alkaline Phosphatase 109 U/L (38-126); Anion Gap 15.1 mEq/L (5-15); Aspartate Amino Transferase 26 U/L (14-36); Bilirubin,Total 0.2 mg/dl (0.2-1.3); Blood Urea Nitrogen 32 mg/dl (7-17); Carbon Dioxide 32 mmol/L (22.0-30.0); Creatinine Clearance Estimated 74 mL/min (50-200); Estimated Glomerular Filt Rate 65 ml/min (>60); GFR (African American) 79 ML/MIN (>60); Globulin 3.4 g/dL (1.3-3.2); Total Protein,Serum 7.6 g/dl (6.3-8.2)
[2021-10-27 16:40] LABS: Calcium 9.1 mg/dl (8.4-10.2); Glucose 206 mg/dl (74-100); Lactic Acid 1.8 mmol/L (0.7-2.1)
[2021-10-27 16:55] LABS: MANUAL DIFFERENTIAL MANUAL DIFFERENTIAL (MANUAL DIFF)
[2021-10-27 17:14] LABS: Appearance,Urine CLEAR (Clear); Bilirubin,Urine Negative (Negative); Blood, Urine 3+ (Negative); Color,Urine YELLOW (Yellow); Glucose,Urine (UA) Negative (Negative); Ketones,Urine Negative (Negative); Leukocyte Esterase,Urine 3+ (Negative); Nitrate,Urine Negative (Negative); Protein,Urine 1+ (Negative); Specific Gravity, Urine 1.015 (1.005-1.030); Urobilinogen,Urine 0.2 EU/dl (0.2)
[2021-10-27 17:34] LABS: Coronavirus 19, PCR Not Detected (NotDetected); Influenza A, PCR Not Detected (NotDetected); Influenza B, PCR Not Detected (NotDetected)
--- NOTE | 2021-10-27 18:00 | PC.NURSE ---
PT RESTING QUIETLY
[2021-10-27 18:18] LABS: Lymphocytes % 6 % (10-50); Monocytes % 7 % (2-9); Neutrophils % 85 % (42-76); Platelet Estimate Normal; Total Cells Counted 100
[2021-10-27 18:27] LABS: Troponin I 0.06 ng/ml (0.00-0.034)
[2021-10-27 18:29] LABS: RBC,Urine 20-50 #/hpf (0-3); WBC,Urine 20-50 #/hpf (0-3)
--- NOTE | 2021-10-27 18:55 | PC.NURSE ---
PT RESTING STATES PAIN IMPROVED AFTER MEDS GIVEN
--- NOTE | 2021-10-27 20:30 | PC.NURSE ---
MD notified of persistent hypotension after bolus completion. Order for Levophed obtained and initiated at 8mcg/min per protocol.
--- NOTE | 2021-10-27 20:37 | PC.NURSE ---
Pt's bolus just finished infusing. At 1932 this RN noticed IV fluids were not flowing well with pressure bag. IV position adjusted and IV flushed and infusing well.
--- NOTE | 2021-10-27 21:40 | PC.NURSE ---
Levophed decreased to 4mcg/min at this time QM=113/60 HR=70
--- NOTE | 2021-10-27 23:06 | PC.NURSE ---
Levophed stopped at this time. BP= 118/66 HR=69
[2021-10-28] VITALS (13 sets, daily range): BP systolic 101–139; BP diastolic 58–73; PULSE 64–78; RESP 16–22; TEMP 36.7–37.3; O2SAT 90–99; BMI 42.3
[2021-10-28 02:11] LABS: POC Glucose,Bedside 162 (70-110)
--- NOTE | 2021-10-28 03:01 | PC.NURSE ---
Report called to SHARRI Leal at this time.
--- NOTE | 2021-10-28 03:30 | PC.NURSE ---
PT ARRIVED TO FLOOR VIA STRETCHER FROM ED W/STAFF @ [id number]
[2021-10-28 06:06] LABS: POC Glucose,Bedside 141 (70-110)
--- NOTE | 2021-10-28 07:17 | PC.WOUNDNOTE ---
Measurement of wound on bottom of right foot approx. 1 1/4 in length. Without measurement lateral aspect of right mid calf.
--- NOTE | 2021-10-28 09:22 | P.CONPHA_ITS ---
[facility] Pharmacy VTE Monitoring - Patient Demographics Admission date: 10/28/21 Report Date: 10/28/21 Time: 09:22 Allergies/Adverse Reactions: Patient Allergies protamine Allergy (Verified 10/16/21 14:44) Height: 1.75 m Weight: 129.7 kg Patient Problems: Current Active Problems Sepsis (Acute) Pyelonephritis (Acute) - VTE Risk Labs: VTE Related Lab Results Hgb 12.1 g/dL (12.2-16.2) L 10/27/21 15:50 Hct 36.2 % (37.0-47.0) L 10/27/21 15:50 Plt Count 379 K/mm3 (142-424) 10/27/21 15:50 BUN 32 mg/dl (7-17) H 10/27/21 15:50 Creatinine 0.90 mg/dl (0.52-1.04) 10/27/21 15:50 Estimated Creat Clear 74 mL/min (50-200) 10/27/21 15:50 Was VTE Risk Assessment Performed: Yes VTE Score: 10 VTE Risk Level: Moderate Risk - Prophylaxis Types of VTE Prophylaxis: TEDS Knee High Location of Applied Device: Right Leg (CHRIS HOSE ORDER PLACED.), Left Leg
--- NOTE | 2021-10-28 12:49 | PC.NURSE ---
spoke with MD SYBIL regarding patient complaint of pain and lack of PO acces due to aspiration. ordered 2mg IV push morphine PRN q4 as needed for pain.
--- NOTE | 2021-10-28 14:10 | HMH.HP ---
*Admission Date: 10/28/21 *Chief complaint: fever and sepsis *History of present illness: Patient is a 55-year-old white female, resident at [facility], presented to the emergency room with an acute illness that had evolved over several days. She was febrile with a marked elevation in WBC. Patient's leukocyte esterase and urinary white cells were elevated. Her chest film was clear. She is however producing some purulent sputum and there is a question of aspiration. Patient's ability to give a detailed recount of events is somewhat limited. She is currently on Rocephin pending microbiology results. [facility] History Medical History: Reports:: Anxiety, Atherosclerotic Heart Disease, Cardiomyopathy, Congestive Heart Failure, Chronic Obstructive Pulmonary Disease (COPD), Coronary Artery Disease, Cerebrovascular Accident, Depression, Diabetes Mellitus Type 2, Hyperlipidemia, Hypertension, Peripheral Artery Disease, Peripheral Vascular Disease Denies:: Cancer, Diabetes Mellitus Type 1, Internal Pacemaker, MRSA, Seizures *Have you ever received a pneumonia vaccine?: No *Have you received a flu vaccine this season?: No Other Medical History: Reports: Cataracts, Hypothyroidism, Thyroid Disease. Denies: Blood Transfusion Reaction Laterality Cases: Bilateral: Other Other Surgeries: Yes: Cardiac Catheterization, Cardiac Surgery, Cholecystectomy, Colonoscopy, Coronary Stent, Thyroidectomy, Tubal Ligation, Other. No: Pacemaker Amputation: Yes (LBKA) Fractures: No - *Social History Smoking Status: Current every day smoker Tobacco Type: cigarettes # Packs/Day (cigarettes): 1 #Yrs smoked (if former smoker): 30 Alcohol Intake: never Substance Use Type: denies use *Occupational Status:: disabled Housing: custodial Household Members: family *Travel in the last 8 weeks: None - Psychiatric History Pschychiatric History:: Reports:: Anxiety, Depression Family Hx:: Cancer, Coronary Artery Disease, Heart Attack, Hyperlipidemia, Hypertension Review of Systems - Constitutional Reports lack of energy - Eyes Denies change in vision - ENT Denies abnormal hearing - *Cardiovascular Denies chest pain - *Respiratory Reports chest congestion, Reports cough - *Gastrointestinal Denies abdominal pain - *Genitourinary Reports difficulty urinating, Denies blood in urine - *Musculoskeletal Reports muscle weakness - Integumentary/Breasts Denies yellowing of the skin - *Neurologic Denies loss of vision - Psychiatric Reports anxiety - Endocrine Denies flushing - Hematologic/Lymphatic Denies easy bleeding, Denies easy bruising - Allergic/Immunologic Denies hives Meds Home Medications Medication Instructions Recorded Confirmed Type acetaminophen 500 mg tablet 1,000 mg PO Q6HP PRN #120 tab 12/11/20 10/27/21 Rx melatonin 3 mg tablet 3 mg PO HS #90 tab 12/11/20 10/28/21 Rx rivaroxaban 2.5 mg tablet 2.5 mg PO BID #180 tab 12/11/20 10/28/21 Rx albuterol sulfate 90 mcg/actuation 2 puff INHALATION Q4HP PRN #6.7 g 02/12/21 10/27/21 Rx aerosol inhaler aspirin 81 mg chewable tablet 81 mg PO DAILY #90 tab 02/15/21 10/28/21 Rx Furosemide [Lasix 40mg tablet] 40 mg PO DAILY 04/27/21 10/28/21 History Levothyroxine Sodium [Synthroid 150 mcg PO DAILY 04/27/21 10/28/21 History 150mcg (0.15mg) tablet] clonazepam 0.5 mg tablet 0.5 mg PO TID #90 tab 05/02/21 10/28/21 Rx gabapentin 600 mg tablet 600 mg PO QID #120 tab 05/02/21 10/28/21 Rx carvediloL [Coreg 3.125mg Tablet] 3.125 mg PO BID 05/08/21 10/28/21 History Duloxetine HCl [Cymbalta 30mg 60 mg PO DAILY 05/10/21 10/28/21 History capsule] buspirone 15 mg tablet 15 mg PO TID tab 05/24/21 10/28/21 History Atorvastatin Calcium [Lipitor 80mg 80 mg PO HS 10/27/21 10/28/21 History Tablet*] Hydrocodone/Acetaminophen 1 tab PO Q6H 10/27/21 10/28/21 History [Hydrocodone-Acetamin 7.5-325] Sitagliptin Phosphate [Januvia] 100 mg PO DAILY 10/27/21 10/28/21 Hist
[2021-10-28 16:10] LABS: POC Glucose,Bedside 132 (70-110)
[2021-10-28 21:01] LABS: POC Glucose,Bedside 146 (70-110)
[2021-10-28 21:01] LABS: POC Glucose,Bedside 167 (70-110)
[2021-10-29] VITALS (7 sets, daily range): BP systolic 108–143; BP diastolic 51–67; PULSE 64–79; RESP 16–18; TEMP 36.6–37.1; O2SAT 86–92; BMI 42.3
--- NOTE | 2021-10-29 05:04 | PC.NURSE ---
pt slept most of the night after pain meds x2 for foot/leg pain relating to ulcers, pt flacid on right side and is having speech/swallowing evaluation and is currently NPO, pt is also having podiatry consult today regarding foot/leg ulcers to right extremity, Left bka, VSS, pt 92% on room air and wears o2 as needed
--- NOTE | 2021-10-29 06:00 | XR_ITS ---
PROCEDURE INFORMATION: Exam: XR Chest Exam date and time: 10/29/2021 6:00 AM Age: 55 years old Clinical indication: Cough and other: Aspiration risk TECHNIQUE: Imaging protocol: XR of the chest. Views: 1 view. COMPARISON: CR XR CHEST PORTABLE 10/27/2021 4:27 PM FINDINGS: Lungs: Unremarkable. No consolidation. Pleural spaces: Unremarkable. No pleural effusion. No pneumothorax. Heart/Mediastinum: Unremarkable. No cardiomegaly. Bones/joints: Unremarkable. IMPRESSION: No acute findings.
--- NOTE | 2021-10-29 06:33 | XR_ITS ---
PROCEDURE: XR FOOT RT MIN 3V CLINICAL INDICATION: Right DFU Diabetic foot ulcer COMPARISON: CR XR FOOT RT MIN 3V from 07/06/2020 CR XR FOOT WT BEARING RT 3V from 01/15/2021 CR XR FOOT RT MIN 3V from 05/08/2021 CR XR FOOT WT BEARING RT 3V from 07/24/2021 FINDINGS: There is diffuse osteopenia. No acute fracture or dislocation. There is a calcaneal spur. No obvious bony destructive process. The joint spaces are well-preserved. No significant degenerative/arthritic changes. No erosive changes evident. Other findings:None. IMPRESSION: Diffuse osteopenia. No obvious bony destructive process identified. Dictated by: Jamison Jj MD 10/29/2021 08:57 Jamison Jj MD in [place] 10/29/2021 08:57
[2021-10-29 06:57] LABS: Basophils % 0.4 % (0.1-2.0); Eosinophils # 0.2 K/mm3 (0.0-0.4); Eosinophils % 2.2 % (0.1-12.0); Hematocrit 30.6 % (37.0-47.0); Hemoglobin 9.8 g/dL (12.2-16.2); Lymphocytes # 1.9 K/mm3 (0.7-4.5); Lymphocytes % 17.7 % (10-50); Mean Corpuscular Hemoglobin 29.9 pg (27.0-31.2); Mean Corpuscular Volume 93.6 fl (81-99); Mean Platelet Volume 8.5 fl (7.4-10.4); Monocytes # 0.6 K/mm3 (0.1-1.0); Monocytes % 5.8 % (1.7-9.3); Neutrophils # 7.9 K/mm3 (1.8-7.8); Neutrophils % 73.9 % (37.0-80.0); Platelet Count 282 K/mm3 (142-424); Red Blood Count 3.27 M/mm3 (4.20-5.40); Red Cell Distribution Width 15.7 % (11.5-17.5); White Blood Count 10.7 K/mm3 (4.8-10.8)
[2021-10-29 07:02] LABS: Chloride 98 mmol/L (98-107); Potassium 4.3 mmoL/L (3.5-5.1); Sodium 136 mmol/L (136-145)
[2021-10-29 07:04] LABS: Blood Urea Nitrogen 23 mg/dl (7-17); Creatinine Clearance Estimated 92 mL/min (50-200); Estimated Glomerular Filt Rate 87 ml/min (>60); GFR (African American) 105 ML/MIN (>60)
[2021-10-29 07:05] LABS: Alanine Aminotransferase 11 U/L (12-78); Albumin Level 3.5 g/dl (3.5-5.0); Albumin/Globulin Ratio 1.1 (1.1-1.8); Alkaline Phosphatase 77 U/L (38-126); Anion Gap 8.3 mEq/L (5-15); Aspartate Amino Transferase 20 U/L (14-36); Carbon Dioxide 34 mmol/L (22.0-30.0); Globulin 3.2 g/dL (1.3-3.2); Glucose 132 mg/dl (74-100); Total Protein,Serum 6.7 g/dl (6.3-8.2)
[2021-10-29 07:06] LABS: Bilirubin,Total 0.1 mg/dl (0.2-1.3)
[2021-10-29 07:11] LABS: C-Reactive Protein 118.9 mg/L (0-4)
[2021-10-29 07:26] LABS: Erythrocyte Sedimentation Rate > 140 mm/hr (0-30)
[2021-10-29 07:33] LABS: Thyroid Stimulating Hormone 0.66 uIU/mL (0.465-4.68)
[2021-10-29 07:41] LABS: Hemoglobin A1C 8.3 % (4.0-6.0)
--- NOTE | 2021-10-29 08:18 | P.CONS_ITS ---
*Admission Date: 10/28/21 <AnnieneftalyMeena davenport - 10/29/21 08:33> *Reason for consult:: Follow up right foot ulcer <Meena Murphy - 10/29/21 08:33> *History of present illness: Patient is a 55-year-old white female, resident at [facility], presented to the emergency room with an acute illness that had evolved over several days. She was febrile with a marked elevation in WBC. Patient's leukocyte esterase and urinary white cells were elevated. Her chest film was clear. She is however producing some purulent sputum and there is a question of aspiration. Patient's ability to give a detailed recount of events is somewhat limited. She is currently on Rocephin pending microbiology results. PODIATRY CONSULT: Patient is a 55 year old diabetic female well known to the podiatry team who was admitted 10/28/21 for fever and sepsis. PCP team consulted podiatry for follow up of right foot diabetic ulcer. Patient lying comfortably in bed. Alert and oriented x3. No acute distress noted. Patient complaining of diabetic neuropathy burning and right knee pain. She saw Dr. Weinberg in the past for treatment. S/P left Below knee amputation. Right foot skin is dry and there is a diabetic ulcer noted to right lateral plantar foot. Utilizing 15 blade, the wound was sharply excisionally debrided off. The ulcer is limited to skin breakdown. No purulent drainage noted. Site swabbed for wound culture. Right foot ulcer cleaned with wound sweeper cleaner industrial and dressed with betadine and kirlex. Discussed with patient treatment options for right foot ulcer. Patient is not a candidate for surgery. She will need a post op shoe, ok to PWB to right heel with DME as tolerated. <AnnieneftalyethelMeena - 10/29/21 13:20> [facility] History Medical History: Reports:: Anxiety, Atherosclerotic Heart Disease, Cardiomyop athy, Congestive Heart Failure, Chronic Obstructive Pulmonary Disease (COPD), Coronary Artery Disease, Cerebrovascular Accident, Depression, Diabetes Mellitus Type 2, Hyperlipidemia, Hypertension, Peripheral Artery Disease, Peripheral Vascular Disease Denies:: Cancer, Diabetes Mellitus Type 1, Internal Pacemaker, MRSA, Seizures <Meena Murphy - 10/29/21 08:33> *Have you ever received a pneumonia vaccine?: No <Meena Murphy - 10/29/21 08:33> *Have you received a flu vaccine this season?: No <[facility] 10/29/21 08:33> Other Medical History: Reports: Cataracts, Hypothyroidism, Thyroid Disease. Denies: Blood Transfusion Reaction <[facility] 10/29/21 08:33> Laterality Cases: Bilateral: Other <[facility] 10/29/21 08:33> Other Surgeries: Yes: Cardiac Catheterization, Cardiac Surgery, Cholecystectomy, Colonoscopy, Coronary Stent, Thyroidectomy, Tubal Ligation, Other. No: Pacemaker <[facility] 10/29/21 08:33> Amputation: Yes (LBKA) <[facility] 10/29/21 08:33> Fractures: No <[facility] 10/29/21 08:33> - *Social History Smoking Status: Current every day smoker <[facility] 10/29/21 08:33> Tobacco Type: cigarettes <[facility] 10/29/21 08:33> # Packs/Day (cigarettes): 1 <[facility] 10/29/21 08:33> #Yrs smoked (if former smoker): 30 <[facility] 10/29/21 08:33> Alcohol Intake: never <[facility] 10/29/21 08:33> Substance Use Type: denies use <[facility] 10/29/21 08:33> *Occupational Status:: disabled <[facility] 10/29/21 08:33> Housing: care home <[facility] 10/29/21 08:33> Household Members: family <[facility] 10/29/21 08:33> *Travel in the last 8 weeks: None <[facility] 10/29/21 08:33> - Psychiatric History Pschychiatric History:: Reports:: Anxiety, Depression <[facility] 10/29/21 08:33> Family
--- NOTE | 2021-10-29 08:18 | HMH.ORTHOCON ---
*Admission Date: 10/28/21 <Meena Murphy - 10/29/21 08:33> *Reason for consult:: Follow up right foot ulcer <Meena Murphy 10/29/21 08:33> *History of present illness: Patient is a 55-year-old white female, resident at [facility], presented to the emergency room with an acute illness that had evolved over several days. She was febrile with a marked elevation in WBC. Patient's leukocyte esterase and urinary white cells were elevated. Her chest film was clear. She is however producing some purulent sputum and there is a question of aspiration. Patient's ability to give a detailed recount of events is somewhat limited. She is currently on Rocephin pending microbiology results. PODIATRY CONSULT: Patient is a 55 year old diabetic female well known to the podiatry team who was admitted 10/28/21 for fever and sepsis. PCP team consulted podiatry for follow up of right foot diabetic ulcer. Patient lying comfortably in bed. Alert and oriented x3. No acute distress noted. Patient complaining of diabetic neuropathy burning and right knee pain. She saw Dr. Weinberg in the past for treatment. S/P left Below knee amputation. Right foot skin is dry and there is a diabetic ulcer noted to right lateral plantar foot. Utilizing 15 blade, the wound was sharply excisionally debrided off. The ulcer is limited to skin breakdown. No purulent drainage noted. Site swabbed for wound culture. Right foot ulcer cleaned with wound drain cleaner and dressed with betadine and kirlex. Discussed with patient treatment options for right foot ulcer. Patient is not a candidate for surgery. She will need a post op shoe, ok to PWB to right heel with DME as tolerated. <Meena Murphy - 10/29/21 13:20> [facility] History Medical History: Reports:: Anxiety, Atherosclerotic Heart Disease, Cardiomyopathy, Congestive Heart Failure, Chronic Obstructive Pulmonary Disease (COPD), Coronary Artery Disease, Cerebrovascular Accident, Depression, Diabetes Mellitus Type 2, Hyperlipidemia, Hypertension, Peripheral Artery Disease, Peripheral Vascular Disease Denies:: Cancer, Diabetes Mellitus Type 1, Internal Pacemaker, MRSA, Seizures <Meena Murphy 10/29/21 08:33> *Have you ever received a pneumonia vaccine?: No <[facility] 10/29/21 08:33> *Have you received a flu vaccine this season?: No <[facility] 10/29/21 08:33> Other Medical History: Reports: Cataracts, Hypothyroidism, Thyroid Disease. Denies: Blood Transfusion Reaction <[facility] 10/29/21 08:33> Laterality Cases: Bilateral: Other <[facility] 10/29/21 08:33> Other Surgeries: Yes: Cardiac Catheterization, Cardiac Surgery, Cholecystectomy, Colonoscopy, Coronary Stent, Thyroidectomy, Tubal Ligation, Other. No: Pacemaker <[facility] 10/29/21 08:33> Amputation: Yes (LBKA) <[facility] 10/29/21 08:33> Fractures: No <[facility] 10/29/21 08:33> - *Social History Smoking Status: Current every day smoker <[facility] 10/29/21 08:33> Tobacco Type: cigarettes <[facility] 10/29/21 08:33> # Packs/Day (cigarettes): 1 <[facility] 10/29/21 08:33> #Yrs smoked (if former smoker): 30 <[facility] 10/29/21 08:33> Alcohol Intake: never <[facility] 10/29/21 08:33> Substance Use Type: denies use <[facility] 10/29/21 08:33> *Occupational Status:: disabled <[facility] 10/29/21 08:33> Housing: retirement <[facility] 10/29/21 08:33> Household Members: family <[facility] 10/29/21 08:33> *Travel in the last 8 weeks: None <[facility] 10/29/21 08:33> - Psychiatric History Pschychiatric History:: Reports:: Anxiety, Depression <[facility] 10/29/21 08:33> Family Hx:: Cancer, Coronary Artery Disease, Heart Attack, Hyperlipidemia, Hypertension <[facility] 10/29/21 08:33> Review of Systems - *Neurologic Denies abnormal hearing, Denies loss of vision <Meena Murphy - 10/29/21 08:33> Meds
--- NOTE | 2021-10-29 08:55 | HMH.ACPN2 ---
Internal Medicine - PN: Subj *Date: 10/29/21 *Time: 08:00 Interval history: pt laying in bed states she wants her po pain meds not morphine. Exam Vital signs and Labs for Last 24 Hours: Temp Pulse Resp BP Pulse Ox 98.6 F 79 16 143/67 H 90 L 10/29/21 08:00 10/29/21 08:00 10/29/21 08:00 10/29/21 08:00 10/29/21 08:00 Laboratory Results - last 24 hr 10/27/21 15:50: Urine Color Yellow, Urine Appearance Clear, Urine pH 6.0, Ur Specific [place] 1.015, Urine Protein 1+, Urine Glucose (UA) Negative, Urine Ketones Negative, Urine Blood 3+, Urine Nitrate Negative, Urine Bilirubin Negative, Urine Urobilinogen 0.2, Ur Leukocyte Esterase 3+ A, Urine RBC 20-50, Urine WBC 20-50 10/28/21 11:59: POC Glucose 132 H 10/28/21 16:52: POC Glucose 167 H 10/28/21 20:41: POC Glucose 146 H 10/29/21 06:03: WBC 10.7 D, RBC 3.27 L, Hgb 9.8 L, Hct 30.6 L, MCV 93.6, MCH 29.9, MCHC 32.0, RDW 15.7, Plt Count 282 D, MPV 8.5, Neut % (Auto) 73.9, Lymph % (Auto) 17.7, [place] % (Auto) 5.8, Eos % (Auto) 2.2, Baso % (Auto) 0.4, Neut # (Auto) 7.9 H, Lymph # (Auto) 1.9, [place] # (Auto) 0.6, Eos # (Auto) 0.2, Baso # (Auto) 0.0 10/29/21 06:03: Sodium 136, Potassium 4.3, Chloride 98, Carbon Dioxide 34 H, Anion Gap 8.3, BUN 23 H D, Creatinine 0.70 D, Estimated Creat Clear 92, Estimated GFR 87, Est GFR ( Amer) 105 D, Glucose 132 H, Calcium 9.0, Total Bilirubin 0.1 L, AST 20, ALT 11 L D, Alkaline Phosphatase 77, Total Protein 6.7, Albumin 3.5, Globulin 3.2, Albumin/Globulin Ratio 1.1, TSH 0.66 10/29/21 06:03: Hemoglobin A1c 8.3 H 10/29/21 06:03: ESR > 140 H 10/29/21 06:03: C-Reactive Protein 118.9 H I & O for Last 24 hours: Intake & Output 10/26/21 10/27/21 10/28/21 10/29/21 11:59 11:59 11:59 11:59 Intake Total 3050 / 3050 1640 / 1640 Output Total 2350 / 2350 Balance 3050 / 3050 -710 / -710 Weight 285 lb 15.033 oz Microbiology Reports for the Last 24 Hours: Microbiology 10/27/21 15:50 Urine,Clean Catch Urine Culture - Preliminary Gram Negative Rods - Constitutional no acute distress, chronically ill appearing - *Routine HEENT Exam Head: Present: normocephalic Eye: Present: PERRL ENT: Present: mucous membranes moist - *Routine Neck Exam Present: supple. Absent: lymphadenopathy - *Routine Respiratory Exam Present: rhonchi - *Routine Cardiovascular Exam Present: RRR - *Routine Abdominal Exam Present: soft, normoactive bowel sounds. Absent: tenderness - *Routine Extremities Exam Present: amputation. Absent: cyanosis, clubbing, edema - *Routine Skin Exam Present: warm, wounds. Absent: rash Comments: dressing to rt foot - *Routine Neurological Exam Present: alert, oriented X3 Assessment and Plan (1) Pyelonephritis Status: Acute Category: Medical Code(s): N12 - Tubulo-interstitial nephritis, not specified as acute or chronic (2) Sepsis Status: Acute Qualifiers: Sepsis type: sepsis due to unspecified organism Sepsis acute organ dysfunction status: without acute organ dysfunction Qualified Code(s): A41.9 - Sepsis, unspecified organism Category: Medical Code(s): A41.9 - Sepsis, unspecified organism (3) Hyperglycemia due to type 2 diabetes mellitus Status: Acute Qualifiers: Diabetes mellitus prison insulin use: without prison use Qualified Code(s): E11.65 - Type 2 diabetes mellitus with hyperglycemia Category: Medical Code(s): E11.65 - Type 2 diabetes mellitus with hyperglycemia (4) UTI (urinary tract infection) Status: Acute Qualifiers: Urinary tract infection type: site unspecified Hematuria presence: without hematuria Qualified Code(s): N39.0 - Urinary tract infection, site not specified Category: Medical Code(s): N39.0 - Urinary tract infection, site not specified (5) Anxiety Status: Chronic Category: Medical Code(s): F41.9 - Anxiety disorder, unspecified (6) Diabetes mellitus Status: Chr
--- NOTE | 2021-10-29 09:22 | SW/DCPLANNER ---
Addendum entered by Gloria Castrejon 10/30/21 09:40: The plan is for this patient to discharge back to [facility] tomorrow. I have informed Yuni w/ [facility] and she has stated that patient will require an additional COVID swab. COVID swab will be ordered for today. Original Note: This patient currently resides at [facility] under ICF level of care. I will continue to follow up w/ Yuni from [facility] until patient is medically stable for discharge. Discharge date is unknown at this time.
--- NOTE | 2021-10-29 10:49 | HMH.SLDYSPHA ---
Speech & Language Evaluation Speech/Language Dysphagia Evaluation Start: 10/29/21 10:15 Freq: ONCE Status: Active Protocol: Document 10/29/21 10:15 CMAY (Rec: 10/29/21 10:48 CMAY [id number]) Dysphagia Assess/Goals/Plan Assessment Date of Evaluation: 10/29/21 Evaluation Type Initial Certification Assessment/Problems Dysphagia Does Patient Qualify for Service No Qualify/Failure Comment Patient does not qualify for services at this time based on the results of today's evaluation. Dietary changes were implemented for patient's safety during intake. Recommendations PHYSICIAN CERTIFICATION: The specified therapy services are required, authorized, and reviewed every 30 days. Diet Recommendations Mechancial Soft Chopped Meats Liquid Type Recommendations Normal/Thin SL Swallow Guidelines Alt bite w/sip thru meal, Standard Aspiration Prec.,Oral Care Education Dysphagia Swallow Precautions/Strategies Sitting Upright (90 deg),No Straw,Liquids from Cup,Small Bites and Sips,Alternate Liquids/Solids Plan Pt/Guardian verbally ack understanding Yes of dx/prognosis/goals G -code Required No Education Instructions provided Education provided to patient regarding swallowing safety strategies to implement such as sitting upright during intake and sitting upright for at least 30 minutes following intake, taking small bites/ sips, alternating between bites/sips, and not using straws. ST also provided education for performing oral care. Pt/Caregiver able to recall information Able to recall/restate Reinforcement needed No Speech & Language HPI History Present Illness Description of Patient Problem Coughing Language Primary Language [place] Therapy History Seen by other SL therapists Yes Who/When/Recommendations Seen by ST at the custodial she resides at. She voiced she was discharged from speech therapy services there ~2 months ago. General Information General Current Food Consistancy NPO Comment: Upper Dentures Only Oxygen Status Room
--- NOTE | 2021-10-29 21:31 | PC.NURSE ---
adjusted bed, no other care needed
[2021-10-30 04:00] VITALS: BP 148/60; PULSE 66; RESP 18; TEMP 36.7; O2SAT 91
--- NOTE | 2021-10-30 05:05 | PC.NURSE ---
Emptied soild linens and trash. helped turn and clean.
[2021-10-30 05:45] VITALS: BMI 42.7
--- NOTE | 2021-10-30 07:18 | PC.NURSE ---
Patient rested well through night. VSS. Placed on 2L per NC for low sats while sleeping. C/o headache and right hip pain once, treated with PRN norco. Patient lethargic post pain medication. Patient alert and oriented, able to make needs known. Patient did have coughing episode after morning medication administration. Resolved on own. Noted spontaneous coughing through night and lungs diminished with fine crackles. Patient has purewick in place for urinary incontinence. Tolerating well. Changed purewick this morning. Patient repositioned q2h as tolerated for pressure reduction. Right heel floated, dressing to right foot ulceration CDI. IVF infusing. Denies complaints currently.
[2021-10-30 07:20] LABS: Basophils % 0.5 % (0.1-2.0); Eosinophils # 0.4 K/mm3 (0.0-0.4); Eosinophils % 4.5 % (0.1-12.0); Hematocrit 34.3 % (37.0-47.0); Hemoglobin 11.5 g/dL (12.2-16.2); Lymphocytes # 2.2 K/mm3 (0.7-4.5); Lymphocytes % 27.9 % (10-50); Mean Corpuscular HGB Conc 33.6 g/dL (31.8-35.4); Mean Corpuscular Hemoglobin 31.1 pg (27.0-31.2); Mean Corpuscular Volume 92.5 fl (81-99); Monocytes # 0.5 K/mm3 (0.1-1.0); Neutrophils # 4.8 K/mm3 (1.8-7.8); Neutrophils % 61.1 % (37.0-80.0); Platelet Count 292 K/mm3 (142-424); Red Blood Count 3.71 M/mm3 (4.20-5.40); Red Cell Distribution Width 15.2 % (11.5-17.5); White Blood Count 7.8 K/mm3 (4.8-10.8)
[2021-10-30 07:48] LABS: Chloride 97 mmol/L (98-107); Potassium 4.2 mmoL/L (3.5-5.1); Sodium 137 mmol/L (136-145)
[2021-10-30 07:51] LABS: Blood Urea Nitrogen 18 mg/dl (7-17); Creatinine Clearance Estimated 107 mL/min (50-200); Estimated Glomerular Filt Rate 104 ml/min (>60); GFR (African American) 126 ML/MIN (>60)
[2021-10-30 07:52] LABS: Anion Gap 11.2 mEq/L (5-15); Calcium 9.5 mg/dl (8.4-10.2); Carbon Dioxide 33 mmol/L (22.0-30.0); Glucose 109 mg/dl (74-100)
[2021-10-30 07:56] VITALS: BP 124/47; PULSE 66; RESP 16; TEMP 36.7; O2SAT 90
--- NOTE | 2021-10-30 09:08 | HMH.ACPN2 ---
Internal Medicine - PN: Subj *Date: 10/30/21 *Time: 09:08 Exam Vital signs and Labs for Last 24 Hours: Temp Pulse Resp BP Pulse Ox 98.0 F 66 16 124/47 L 90 L 10/30/21 07:56 10/30/21 07:56 10/30/21 07:56 10/30/21 07:56 10/30/21 07:56 Laboratory Results - last 24 hr 10/30/21 07:00: WBC 7.8 D, RBC 3.71 L, Hgb 11.5 L, Hct 34.3 L, MCV 92.5, MCH 31.1, MCHC 33.6, RDW 15.2, Plt Count 292, MPV 8.0, Neut % (Auto) 61.1, Lymph % (Auto) 27.9, [place] % (Auto) 6.0, Eos % (Auto) 4.5, Baso % (Auto) 0.5, Neut # (Auto) 4.8, Lymph # (Auto) 2.2, [place] # (Auto) 0.5, Eos # (Auto) 0.4, Baso # (Auto) 0.0 10/30/21 07:00: Sodium 137, Potassium 4.2, Chloride 97 L, Carbon Dioxide 33 H, Anion Gap 11.2, BUN 18 H, Creatinine 0.60, Estimated Creat Clear 107, Estimated GFR 104, Est GFR ( Amer) 126, Glucose 109 H, Calcium 9.5 I & O for Last 24 hours: Intake & Output 10/27/21 10/28/21 10/29/21 10/30/21 23:59 23:59 23:59 23:59 Intake Total 3050 / 3050 1880 / 1880 2268 / 2268 Output Total 850 / 1750 2200 / 2800 900 / 900 Balance 2200 / 1300 -320 / -920 1368 / 1368 Weight 285 lb 15.033 oz 285 lb 15.033 oz 285 lb 15.033 oz 289 lb 1.6 oz Microbiology Reports for the Last 24 Hours: Microbiology 10/29/21 08:00 Foot,Right - Wound Gram Stain - Final 10/29/21 08:00 Foot,Right - Wound Wound Culture - Preliminary NO GROWTH AFTER 24 HOURS 10/27/21 15:50 Urine,Clean Catch Urine Culture - Final Klebsiella pneumoniae 10/27/21 15:50 Blood Blood Culture - Preliminary NO GROWTH AFTER 48 HOURS 10/27/21 15:50 Blood Blood Culture - Preliminary NO GROWTH AFTER 48 HOURS Assessment and Plan (1) Pyelonephritis Status: Acute Category: Medical Code(s): N12 - Tubulo-interstitial nephritis, not specified as acute or chronic (2) Sepsis Status: Acute Qualifiers: Sepsis type: sepsis due to unspecified organism Sepsis acute organ dysfunction status: without acute organ dysfunction Qualified Code(s): A41.9 - Sepsis, unspecified organism Category: Medical Code(s): A41.9 - Sepsis, unspecified organism (3) Hyperglycemia due to type 2 diabetes mellitus Status: Acute Qualifiers: Diabetes mellitus half-way insulin use: without oysterman use Qualified Code(s): E11.65 - Type 2 diabetes mellitus with hyperglycemia Category: Medical Code(s): E11.65 - Type 2 diabetes mellitus with hyperglycemia (4) UTI (urinary tract infection) Status: Acute Qualifiers: Urinary tract infection type: site unspecified Hematuria presence: without hematuria Qualified Code(s): N39.0 - Urinary tract infection, site not specified Category: Medical Code(s): N39.0 - Urinary tract infection, site not specified (5) Anxiety Status: Chronic Category: Medical Code(s): F41.9 - Anxiety disorder, unspecified (6) Diabetes mellitus Status: Chronic Qualifiers: Diabetes mellitus type: type 2 Diabetes mellitus half-way insulin use: unspecified oysterman insulin use status Diabetes mellitus complication status: with other specified complication Qualified Code(s): E11.69 - Type 2 diabetes mellitus with other specified complication Category: Medical Code(s): E11.9 - Type 2 diabetes mellitus without complications (7) Diabetic neuropathy, type II diabetes mellitus Status: Chronic Qualifiers: Diabetes mellitus oysterman insulin use: with oysterman use Qualified Code(s): E11.40 - Type 2 diabetes mellitus with diabetic neuropathy, unspecified; Z79.4 - penitentiary (current) use of insulin Category: Medical Code(s): E11.40 - Type 2 diabetes mellitus with diabetic neuropathy, unspecified (8) History of CVA (cerebrovascular accident) Status: Chronic Category: Medical Code(s): Z86.73 - Personal history of transient ischemic attack (TIA), and cerebral infarction without residual
--- NOTE | 2021-10-30 09:43 | HMH.PTEV ---
Physical Therapy Evaluation Rehab PT IP Evaluation Start: 10/30/21 09:11 Freq: ONCE Status: Active Protocol: Document 10/30/21 09:37 JONI (Rec: 10/30/21 09:43 PWZEKE [id number]) Subjective/History History History This is the intial IP PT evaluation for Vicky Squires. Pt is well known to therapist as she was long time pt in wound clinic for diabetic and surgical wounds. Pt resides in SNF prior to admittance to [facility]. 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 At [facility] pt is a lift transfer to w/c Subjective Subjective Pt reports c/o pain in R knee w/ movment of RLE Rehab PT IP Eval Objective Appearance Patient Behavior Appropriate,Cooperative Patient Orientation Place,Name,Birthday,Year Difficulty following instructions none Speech Pattern Clear,Appropriate Ambulation Patient Able to Ambulate No Balance Ability to Arise Unable Sitting Balance Leans or slides in chair Standing Balance Unsteady Dynamic Sitting Balance Ability Fair Dynamic Standing Balance Ability Zero Transfers Bed Transfer Ability Maximum x 2 (75% assist) Chair Transfer Ability Maximum x 2 (75% assist) Rehab PT IP prob,goals,plan Problems Date of Evaluation: 10/30/21 PT IP Problems Bed Mobility,Transfers,Gait, Balance,Self care,Safety Rehab Potential Rehab Potential Innapropriate for Skilled Therapy Discharge Plan PT Discharge Plan Pt at baseline level at this time - pt safe to return to SNF once medically stable for DC G -code Required Yes Eval Complexity Eval Charge Codes 77116 - Moderate Complexity G Codes PT Current Status Mobility PT Current Status Modifier CM-At least 80% but less than 100% impaired, limited or restricted PT Goal Status Mobility PT Goal Status Modifer CM-At least 80% but less than 100% impaired, limited or restricted
--- NOTE | 2021-10-30 09:49 | HMH.OTEV ---
OT Inpatient Evaluation Rehab OT IP Evaluation Start: 10/30/21 09:12 Freq: ONCE Status: Complete Protocol: Document 10/30/21 09:39 [facility] (Rec: 10/30/21 09:48 [facility] [id number]) Rehab OT IP Assessment Subjective History Pt oriented x 3 on arrival. Pt agreeable to egage in therapy evaluation. Pt was admitted via ED on 10/28/21 due to fever and sepsis. The following information was copied from physician's history and physical report: Patient is a 55-year-old white female, resident at [facility], presented to the emergency room with an acute illness that had evolved over several days. She was febrile with a marked elevation in WBC. Patient's leukocyte esterase and urinary white cells were elevated. Her chest film was clear. She is however producing some purulent sputum and there is a question of aspiration. She is currently on Rocephin pending microbiology results. Pt has a past medical history of Anxiety, Atherosclerotic Heart Disease, Cardiomyopathy, Congestive Heart Failure, Chronic Obstructive Pulmonary Disease (COPD), Coronary Artery Disease, Cerebrovascular Accident, Depression, Diabetes Mellitus Type 2, Hyperlipidemia, Hypertension, Peripheral Artery Disease, Peripheral Vascular Disease. Pt reports prior to being in the hospital she was at SNF. She required assistance with all ADLs. She was dependent on IADLs. Pt reports she was transferred to her wheelchair with a lift. Subjective They used a lift at the
--- NOTE | 2021-10-30 10:38 | HMH.DCSUM ---
General - General Admission date:: 10/28/21 Discharge date: 10/30/21 HPI HPI: Patient is a 55-year-old white female, resident at [facility], presented to the emergency room with an acute illness that had evolved over several days. She was febrile with a marked elevation in WBC. Patient's leukocyte esterase and urinary white cells were elevated. Her chest film was clear. She is however producing some purulent sputum and there is a question of aspiration. Patient's ability to give a detailed recount of events is somewhat limited. She is currently on Rocephin pending microbiology results. Hospital Course Hospital Course: Patient is a 55-year-old white female, resident at [facility], presented to the emergency room with an acute illness that had evolved over several days. She was febrile with a marked elevation in WBC. Patient's leukocyte esterase and urinary white cells were elevated. Her chest film was clear. She is however producing some purulent sputum and there is a question of aspiration. 10/27/21 CXR: IMPRESSION: No acute cardiopulmonary abnormality. Electronically signed by Tate Smith MD 10/29/21 R Foot XR: FINDINGS: There is diffuse osteopenia. No acute fracture or dislocation. There is a calcaneal spur. No obvious bony destructive process. The joint spaces are well-preserved. No significant degenerative/arthritic changes. No erosive changes evident. Other findings:None. IMPRESSION: Diffuse osteopenia. No obvious bony destructive process identified. Dictated by: Jamison Jj MD Podiatry has seen and recommends: Encounter for wound care: -The skin was cleaned with wound sewer cleaner. -Wound debridment performed. See PE skin section for details. -Wound culture from right lateral plantar ulcer obtained. -Betadine dressing applied to the right foot. Onychomycosis, Onychodystrophy: -Nails were debrided x 5 utilizing manual debridement with a nail nipper. -Patient tolerated the procedure well. -Follow -up in clinic post discharge for diabetic foot care. -Patient will need a post op shoe. -ok to be partial weight bearing to right heel with DME as tolerated. - Nursing to clean right foot wound with wound sewer cleaner daily and apply betadine soaked gauze, cover with 4x4 and kirlex. -Patient does not require surgical intervention at this time from podiatry. Thank you for allowing our services to assist in patient's plan of care. Speech therapy is seen and recommends: Diet Recommendations Mechancial Soft Chopped Meats Liquid Type Recommendations Normal/Thin SL Swallow Guidelines Alt bite w/sip thru meal, Standard Aspiration Prec.,Oral Care Education Dysphagia Swallow Precautions/Strategies Sitting Upright (90 deg),No Straw,Liquids from Cup,Small Bites and Sips,Alternate Liquids/Solids 65-year-old female patient lying in bed resting quietly, she reports pain is under control and reports she is feeling better. Urine culture has resulted Klebsiella pneumonia she has been on Rocephin IV during her stay which she had is susceptible to. She will be discharged back to the retirement on Macrobid. Discussed discharge back to retirement today she is in agreement with this. Physical therapy has evaluated her and says she is at her baseline status at present. PLAN: 1. We will discharge back to [facility] today 2. Macrobid 100 mg twice daily x5 days 3. Follow-up podiatry in 2 weeks 4. Follow-up with PCP in 1 week Objective Vital signs: Temp Pulse Resp BP Pulse Ox 98.0 F 66 16 12
[2021-10-30 11:18] VITALS: BP 134/72; PULSE 54; RESP 18; TEMP 36.7; O2SAT 90
[2021-10-30 11:23] LABS: Coronavirus 19, PCR Not Detected (NotDetected); Influenza A, PCR Not Detected (NotDetected); Influenza B, PCR Not Detected (NotDetected)
[2021-10-30 21:19] LABS: POC Glucose,Bedside 86 (70-110)
[2021-10-30 21:19] LABS: POC Glucose,Bedside 123 (70-110)
[2021-10-30 21:19] LABS: POC Glucose,Bedside 266 (70-110)
[2021-10-30 21:19] LABS: POC Glucose,Bedside 164 (70-110)
[2021-10-30 21:19] LABS: POC Glucose,Bedside 133 (70-110)
== END 2021-10-30 15:41 | DRG 871 ==
LOC: ER 16:35 → 2ND 19:30
PROVIDERS: Family Medicine; Nurse Practitioner Family; Podiatrist; Admitting Provider Internal Medicine Adolescent Medicine; Emergency Provider Emergency Medicine; PCP Physician Assistant; Visit Provider Emergency Medicine
DX: A41.9 Sepsis, unspecified organism (principal); R65.21 Severe sepsis with septic shock; I42.9 Cardiomyopathy, unspecified; L97.411 Non-pressure chronic ulcer of right heel and midfoot limited to breakdown of skin; N12 Tubulo-interstitial nephritis, not specified as acute or chronic; E11.621 Type 2 diabetes mellitus with foot ulcer; I50.9 Heart failure, unspecified; J44.9 Chronic obstructive pulmonary disease, unspecified; F41.9 Anxiety disorder, unspecified; I25.10 Atherosclerotic heart disease of native coronary artery without angina pectoris; Z86.73 Personal history of transient ischemic attack (TIA), and cerebral infarction without residual deficits; F32.A Depression, unspecified; Z20.822 Contact with and (suspected) exposure to COVID-19; E11.51 Type 2 diabetes mellitus with diabetic peripheral angiopathy without gangrene; E03.9 Hypothyroidism, unspecified; F17.210 Nicotine dependence, cigarettes, uncomplicated; I11.0 Hypertensive heart disease with heart failure; E11.65 Type 2 diabetes mellitus with hyperglycemia; E11.40 Type 2 diabetes mellitus with diabetic neuropathy, unspecified; Z89.519 Acquired absence of unspecified leg below knee; Z95.5 Presence of coronary angioplasty implant and graft; Z79.4 Long term (current) use of insulin
CPT/HCPCS: 97597; 36415; 71045; 73630; 80048; 80053; 81001; 82962; 83036; 83605; 84443; 84484; 85007; 85025; 85651; 86140; 87040; 87070; 87086; 87088; 87186; 87205; 92610; 94760; 96365; 96366; 96367; 96375; 96376; 97162; 97166; 99284; C9803; J2405; U0003; U0005

== ENCOUNTER 2021-12-08 10:35 | Emergency (ER) | payer MEDICARE, MEDICAID, SELFPAY ==
[2021-12-08] VITALS (11 sets, daily range): BP systolic 104–154; BP diastolic 41–90; PULSE 66–74; RESP 15–22; TEMP 36.6–37.1; O2SAT 94–100; BMI 42.0
--- NOTE | 2021-12-08 10:50 | CT_ITS ---
PROCEDURE INFORMATION: Exam: CTA Chest With Contrast Exam date and time: 12/08/2021 10:50 AM Age: 55 years old Clinical indication: Cough; Additional info: Coughing up blood TECHNIQUE: Imaging protocol: Computed tomographic angiography of the chest with contrast. 3D rendering (Not supervised by radiologist): MIP and/or 3D reconstructed images were created by the technologist. Radiation optimization: All CT scans at this facility use at least one of these dose optimization techniques: automated exposure control; mA and/or kV adjustment per patient size (includes targeted exams where dose is matched to clinical indication); or iterative reconstruction. Contrast material: ISOVUE 370; Contrast volume: 75 ml; Contrast route: INTRAVENOUS (IV); COMPARISON: CT ANGIO CHEST 03/04/2021 11:04 AM FINDINGS: Pulmonary arteries: No pulmonary emboli. Aorta: No aortic aneurysm. No aortic dissection. Lungs: Minimal bilateral atelectasis. No mass or cavitary lesion. Pleural spaces: Unremarkable. No pneumothorax. No pleural effusion. Heart: No cardiomegaly. No pericardial effusion. Coronary artery calcifications. Lymph nodes: No significant adenopathy. Bones/joints: No acute findings. Soft tissues: Unremarkable. IMPRESSION: No acute findings.
--- NOTE | 2021-12-08 10:51 | XR_ITS ---
PROCEDURE INFORMATION: Exam: XR Chest Exam date and time: 12/08/2021 10:51 AM Age: 55 years old Clinical indication: Cough; Additional info: Coughing up blood TECHNIQUE: Imaging protocol: XR of the chest. Views: 1 view. COMPARISON: CR XR CHEST PORTABLE 10/29/2021 5:02 AM FINDINGS: Lungs: No focal airspace disease. Pleural spaces: Unremarkable. No pleural effusion. No pneumothorax. Heart/Mediastinum: Cardiomediastinal silhouette is within normal limits. Bones/joints: Unremarkable. IMPRESSION: No acute cardiopulmonary abnormality.
--- NOTE | 2021-12-08 12:00 | PC.NURSE ---
pt c/o pain in back and buttocks
[2021-12-08 12:33] LABS: Basophils # 0.1 K/mm3 (0-0.2); Basophils % 0.8 % (0.1-2.0); Eosinophils # 0.4 K/mm3 (0.0-0.4); Eosinophils % 5.4 % (0.1-12.0); Hematocrit 34.3 % (37.0-47.0); Hemoglobin 10.9 g/dL (12.2-16.2); Lymphocytes # 2.1 K/mm3 (0.7-4.5); Lymphocytes % 25.3 % (10-50); Mean Corpuscular HGB Conc 31.8 g/dL (31.8-35.4); Mean Corpuscular Hemoglobin 30.8 pg (27.0-31.2); Mean Corpuscular Volume 97.1 fl (81-99); Mean Platelet Volume 9.2 fl (7.4-10.4); Monocytes # 0.4 K/mm3 (0.1-1.0); Monocytes % 4.9 % (1.7-9.3); Neutrophils # 5.2 K/mm3 (1.8-7.8); Neutrophils % 63.6 % (37.0-80.0); Platelet Count 341 K/mm3 (142-424); Red Blood Count 3.53 M/mm3 (4.20-5.40); Red Cell Distribution Width 14.8 % (11.5-17.5); White Blood Count 8.2 K/mm3 (4.8-10.8)
[2021-12-08 12:41] LABS: Chloride 91 mmol/L (98-107)
[2021-12-08 12:42] LABS: Potassium 4.8 mmoL/L (3.5-5.1); Sodium 129 mmol/L (136-145)
[2021-12-08 12:44] LABS: Alanine Aminotransferase 17 U/L (12-78); Aspartate Amino Transferase 24 U/L (14-36); Blood Urea Nitrogen 27 mg/dl (7-17); Creatinine Clearance Estimated 95 mL/min (50-200); Estimated Glomerular Filt Rate 87 ml/min (>60); GFR (African American) 105 ML/MIN (>60)
[2021-12-08 12:45] LABS: Albumin Level 3.8 g/dl (3.5-5.0); Albumin/Globulin Ratio 1.1 (1.1-1.8); Alkaline Phosphatase 104 U/L (38-126); Anion Gap 9.8 mEq/L (5-15); Bilirubin,Total 0.2 mg/dl (0.2-1.3); Calcium 9.2 mg/dl (8.4-10.2); Carbon Dioxide 33 mmol/L (22.0-30.0); Globulin 3.4 g/dL (1.3-3.2); Glucose 137 mg/dl (74-100); Total Protein,Serum 7.2 g/dl (6.3-8.2)
[2021-12-08 12:49] LABS: Activated Partial Thrombo Time 31.6 seconds (22.8-30.6); INR 1.01 (0.9-1.1); Prothrombin Time 11.4 seconds (10.1-12.5)
[2021-12-08 12:55] LABS: NT Pro Brain Natriuretic Pep. 87.2 pg/mL (0-125)
[2021-12-08 12:57] LABS: Troponin I 0.02 ng/ml (0.00-0.034)
[2021-12-08 13:16] LABS: VBG Base Excess -7.8 mmol/L (-2.4-2.3); VBG HCO3 17.3 mmol/L (23-30); VBG Oxygen Saturation 99.1 % (50-70); VBG PCO2 29.9 mmol/L (35-51); VBG PH 7.38 mmol/L (7.31-7.41); VBG PO2 191.4 mmol/L (28-40); VBG Total CO2 18.2 mmol/L (23-27)
--- NOTE | 2021-12-08 14:00 | PC.NURSE ---
pt updated on plan of care
--- NOTE | 2021-12-08 15:04 | PC.NURSE ---
[facility] has been called
--- NOTE | 2021-12-08 15:05 | PC.NURSE ---
on the phone with
--- NOTE | 2021-12-08 15:06 | HMH.EDGENADL ---
ED Disposition Clinical Impression: Acute bronchitis Disposition: Home, Self-Care Condition on Discharge: Good Prescriptions: Azithromycin [Z-Maikel 250mg Tab*] 250 mg PO UD DOSE PK #6 tab Transmission Status: Pending to [facility] Referrals: Sameer Patterson MD [Primary Care Provider] - - Critical Care Critical Care Time: No Attestation: On 12/08/21, the high probability of a clinically significant, sudden or life threatening deterioration of the following system(s) required my full and direct attention, intervention and personal management. The time I documented below is in addition to time spent performing reported procedures but includes the following listed in this critical care notation. Medical Decision Making - Medical Records Medical records reviewed: Yes: I reviewed the patient's medical records. - Edgar Inquiry Pt receiving controlled substance: No Edgar was queried for this patient: No Vital Signs: 12/08/21 10:36 12/08/21 11:15 12/08/21 12:23 Temperature 98.7 F Temperature Source Oral Pulse Rate 72 71 Pulse Rate [Radial] 66 Respiratory Rate 20 15 18 Blood Pressure 108/56 L 118/55 L Blood Pressure [Right Arm] 125/44 L Blood Pressure Mean 77 Blood Pressure Mean [Right Arm] 71 Blood Pressure Position [Right Arm] Sitting 02 Sat by Pulse Oximetry 98 100 97 Oxygen Delivery Method Nasal Cannula Nasal Cannula Oxygen Flow Rate (LPM) 2 2 12/08/21 12:30 12/08/21 13:01 12/08/21 13:30 Temperature Temperature Source Pulse Rate 69 74 67 Pulse Rate [Radial] Respiratory Rate 22 19 16 Blood Pressure 129/65 120/49 L 108/56 L Blood Pressure [Right Arm] Blood Pressure Mean 86 83 67 Blood Pressure Mean [Right Arm] Blood Pressure Position [Right Arm] 02 Sat by Pulse Oximetry 97 97 96 Oxygen Delivery Method Nasal Cannula Nasal Cannula Nasal Cannula Oxygen Flow Rate (LPM) 2 2 2 12/08/21 14:00 12/08/21 14:30 12/08/21 15:01 Temperature Temperature Source Pulse Rate 67 66 68 Pulse Rate [Radial] Respiratory Rate 16 17 17 Blood Pressure 109/51 L 104/50 L 108/41 L Blood Pressure [Right Arm] Blood Pressure Mean 59 62 69 Blood Pressure Mean [Right Arm] Blood Pressure Position [Right Arm] 02 Sat by Pulse Oximetry 100 100 100 Oxygen Delivery Method Nasal Cannula Nasal Cannula Oxygen Flow Rate (LPM) 2 2 - Lab Data Lab results reviewed: Yes: I reviewed the patient's lab results. Lab Results 12/08/21 10:50: VBG pH 7.38, VBG pCO2 29.9 L, VBG pO2 191.4 H, VBG HCO3 17.3 L, VBG Total CO2 18.2 L, VBG O2 Saturation 99.1 H, VBG Base Excess -7.8 L 12/08/21 12:10: WBC 8.2, RBC 3.53 L, Hgb 10.9 L, Hct 34.3 L, MCV 97.1, MCH 30.8, MCHC 31.8, RDW 14.8, Plt Count 341, MPV 9.2, Neut % (Auto) 63.6, Lymph % (Auto) 25.3, [place] % (Auto) 4.9, Eos % (Auto) 5.4, Baso % (Auto) 0.8, Neut # (Auto) 5.2, Lymph # (Auto) 2.1, [place] # (Auto) 0.4, Eos # (Auto) 0.4, Baso # (Auto) 0.1 12/08/21 12:10: Sodium 129 L, Potassium 4.8, Chloride 91 L, Carbon Dioxide 33 H, Anion Gap 9.8, BUN 27 H, Creatinine 0.70, Estimated Creat Clear 95, Estimated GFR 87, Est GFR ( Amer) 105, Glucose 137 H, Calcium 9.2, Total Bilirubin 0.2, AST 24, ALT 17, Alkaline Phosphatase 104, Troponin I 0.02, Total Protein 7.2, Albumin 3.8, Globulin 3.4 H, Albumin/Globulin Ratio 1.1 12/08/21 12:10: PT 11.4, INR 1.01, APTT 31.6 H 12/08/21 12:10: NT-Pro-B Natriuret Pep 87.2 Result diagrams: 12/08/21 12:10 12/08/21 12:10 Orders (Tests/Meds): ED MEDICATIONS Discontinued Medications Generic Name Dose Route Start Last Admin Trade Name Freq PRN Reason Stop Dose Admin Iopamidol 75 ml 12/08/21 14:04 12/08/21 14:06 Iopamidol-370 (76%);100ml Bottle IV 12/08/21 14:05 75 ml ONCE ONE Administration Sodium Chloride 50 ml 12/08/21 14:04 12/08/21 14:05 0.9 % Sodium Chloride 50 Ml Vial IV 12/08/21 14:05 50 ml ONCE ONE Administration Sodium Chloride 10 ml 12/08/21 14:04
[2021-12-08 15:12] LABS: Troponin I 0.02 ng/ml (0.00-0.034)
--- NOTE | 2021-12-08 16:12 | PC.NURSE ---
report called to igor fernandes
== END 2021-12-08 16:22 | disposition home or self-care (01) ==
PROVIDERS: Emergency Provider Emergency Medicine; PCP Emergency Medicine
DX: J20.9 Acute bronchitis, unspecified (principal); J44.0 Chronic obstructive pulmonary disease with (acute) lower respiratory infection; E11.9 Type 2 diabetes mellitus without complications; F41.8 Other specified anxiety disorders; I10 Essential (primary) hypertension; E78.5 Hyperlipidemia, unspecified; E03.9 Hypothyroidism, unspecified; Z79.899 Other long term (current) drug therapy
CPT/HCPCS: 36415; 71045; 71275; 80053; 82803; 83880; 84484; 85025; 85610; 85730; 96374; 99283; Q9967

== ENCOUNTER → 2021-12-08 23:32 | Outpatient (CLI) | payer MEDICARE, MEDICAID, SELFPAY | PROVIDERS: Visit Provider Emergency Medicine | DX: J20.9 Acute bronchitis, unspecified (principal) ==

== ENCOUNTER → 2021-12-17 06:23 | Outpatient (CLI) | payer MEDICARE, MEDICAID, SELFPAY ==
[2021-12-17 08:43] LABS: Chloride 93 mmol/L (98-107); Potassium 5.5 mmoL/L (3.5-5.1); Sodium 132 mmol/L (136-145)
[2021-12-17 08:46] LABS: Anion Gap 12.5 mEq/L (5-15); Blood Urea Nitrogen 34 mg/dl (7-17); Carbon Dioxide 32 mmol/L (22.0-30.0); Estimated Glomerular Filt Rate 65 ml/min (>60); GFR (African American) 78 ML/MIN (>60)
[2021-12-17 08:47] LABS: Calcium 9.5 mg/dl (8.4-10.2); Glucose 163 mg/dl (74-100)
== END ==
PROVIDERS: Visit Provider Nurse Practitioner Family
DX: J44.9 Chronic obstructive pulmonary disease, unspecified (principal)
CPT/HCPCS: 36415; 80048

== ENCOUNTER → 2022-02-11 15:59 | Outpatient (CLI) | payer MEDICARE, MEDICAID, SELFPAY ==
[2022-02-11 13:48] LABS: Alanine Aminotransferase 16 U/L (12-78); Albumin Level 3.5 g/dl (3.5-5.0); Albumin/Globulin Ratio 1.3 (1.1-1.8); Alkaline Phosphatase 101 U/L (38-126); Anion Gap 11.9 mEq/L (5-15); Aspartate Amino Transferase 27 U/L (14-36); Bilirubin,Total 0.4 mg/dl (0.2-1.3); Blood Urea Nitrogen 17 mg/dl (7-17); Calcium 9.1 mg/dl (8.4-10.2); Carbon Dioxide 30 mmol/L (22.0-30.0); Chloride 99 mmol/L (98-107); Chol/HDL Ratio 2.3 (1-3.5); Cholesterol 129 mg/dl (140-200); Estimated Glomerular Filt Rate 103 ml/min (>60); GFR (African American) 125 ML/MIN (>60); Globulin 2.8 g/dL (1.3-3.2); Glucose 282 mg/dl (74-100); HDL Cholesterol 55 mg/dl (40-60); Potassium 3.9 mmoL/L (3.5-5.1); Sodium 137 mmol/L (136-145); Total Protein,Serum 6.3 g/dl (6.3-8.2); Triglycerides 156 mg/dl (30-150); VLDL Cholesterol 31 mg/dL (0-40)
[2022-02-11 13:58] LABS: Basophils # 0.1 K/mm3 (0-0.2); Eosinophils # 0.2 K/mm3 (0.0-0.4); Eosinophils % 2.3 % (0.1-12.0); Hematocrit 39.8 % (37.0-47.0); Hemoglobin 12.6 g/dL (12.2-16.2); Lymphocytes # 2.2 K/mm3 (0.7-4.5); Lymphocytes % 24.6 % (10-50); Mean Corpuscular HGB Conc 31.6 g/dL (31.8-35.4); Mean Corpuscular Hemoglobin 29.5 pg (27.0-31.2); Mean Corpuscular Volume 93.4 fl (81-99); Monocytes # 0.5 K/mm3 (0.1-1.0); Monocytes % 5.1 % (1.7-9.3); Neutrophils # 6.1 K/mm3 (1.8-7.8); Platelet Count 315 K/mm3 (142-424); Red Blood Count 4.26 M/mm3 (4.20-5.40); Red Cell Distribution Width 14.9 % (11.5-17.5); White Blood Count 9.1 K/mm3 (4.8-10.8)
[2022-02-11 13:59] LABS: Direct LDL Cholesterol 38.91 mg/dL (100-129)
[2022-02-11 14:08] LABS: 25-OH Vitamin D, Total 19.4 ng/mL (30-100)
[2022-02-11 14:27] LABS: Hemoglobin A1C 9.5 % (4.0-6.0)
[2022-02-11 14:37] LABS: Vitamin B12 441 pg/mL (239-931)
== END ==
PROVIDERS: Visit Provider Physician Assistant
DX: I20.9 Angina pectoris, unspecified (principal); E11.628 Type 2 diabetes mellitus with other skin complications; L08.9 Local infection of the skin and subcutaneous tissue, unspecified; J44.9 Chronic obstructive pulmonary disease, unspecified; E55.9 Vitamin D deficiency, unspecified; Z79.4 Long term (current) use of insulin
CPT/HCPCS: 80053; 80061; 82306; 82607; 83036; 85025

== ENCOUNTER 2022-03-06 13:38 | Observation (INO) | payer MEDICARE, MEDICAID, SELFPAY ==
[2022-03-06] VITALS (10 sets, daily range): BP systolic 114–135; BP diastolic 56–78; PULSE 80–97; RESP 16–20; TEMP 36.6–36.8; O2SAT 91–97; BMI 40.6; BMI 35.8
--- NOTE | 2022-03-06 14:10 | HMH.EDGENADL ---
ED Disposition Clinical Impression: Gastroenteritis, Weakness, Dehydration Disposition: Admitted as Observation Condition on Discharge: Fair - Critical Care Critical Care Time: No Attestation: On 03/06/22, the high probability of a clinically significant, sudden or life threatening deterioration of the following system(s) required my full and direct attention, intervention and personal management. The time I documented below is in addition to time spent performing reported procedures but includes the following listed in this critical care notation. Medical Decision Making - Edgar Inquiry Pt receiving controlled substance: No Vital Signs: 03/06/22 13:38 03/06/22 16:26 Temperature 98.3 F Temperature Source Oral Pulse Rate 90 Pulse Rate [Left Radial] 94 H Respiratory Rate 16 16 Blood Pressure 126/78 Blood Pressure [Left Arm] 130/70 Blood Pressure Mean [Left Arm] 90 Blood Pressure Source Automatic Cuff Blood Pressure Source [Left Arm] Automatic Cuff Blood Pressure Position Sitting Blood Pressure Position [Left Arm] Sitting 02 Sat by Pulse Oximetry 92 L 95 Oxygen Delivery Method Room Air Room Air - Lab Data Lab Results 03/06/22 14:00: WBC 10.2, RBC 4.86, Hgb 13.8, Hct 44.0, MCV 90.7, MCH 28.5, MCHC 31.4 L, RDW 14.6, Plt Count 357, MPV 9.1, Neut % (Auto) 69.7, Lymph % (Auto) 22.6, [place] % (Auto) 5.1, Eos % (Auto) 1.9, Baso % (Auto) 0.7, Neut # (Auto) 7.1, Lymph # (Auto) 2.3, [place] # (Auto) 0.5, Eos # (Auto) 0.2, Baso # (Auto) 0.1 03/06/22 14:00: Sodium 137, Potassium 3.5, Chloride 96 L, Carbon Dioxide 36 H, Anion Gap 8.5, BUN 11, Creatinine 0.80, Estimated Creat Clear 155, Estimated GFR 74, Est GFR ( Amer) 90, Glucose 166 H, Calcium 9.7, Total Bilirubin 0.4, AST 36, ALT 17, Alkaline Phosphatase 91, Total Protein 7.0, Albumin 3.7, Globulin 3.3 H, Albumin/Globulin Ratio 1.1 03/06/22 14:00: Troponin I < 0.01, Lipase 53 Result diagrams: 03/06/22 14:00 03/06/22 14:00 Orders (Tests/Meds): ED MEDICATIONS Generic Name Dose Route Start Last Admin Trade Name Freq PRN Reason Stop Dose Admin Sodium Chloride 10 ml 03/06/22 13:48 Sodium Chloride 0.9% 10ml Flush Syringe IV 04/05/22 13:47 NEEDED PRN Maintain IV Site Discontinued Medications Generic Name Dose Route Start Last Admin Trade Name Freq PRN Reason Stop Dose Admin Hydrocodone Bitart/Acetaminophen 1 tab 03/06/22 15:30 03/06/22 16:23 Apap/Hydrocodone 325mg/7.5mg Tab PO 03/06/22 15:31 1 tab ONCE ONE Administration Lactated Ringer's 1,000 mls @ 999 mls/hr 03/06/22 13:48 03/06/22 13:59 Lactated Ringer's 1000 Ml Bag IV 03/06/22 14:48 999 mls/hr .Q1H1M ONE Administration Ondansetron HCl 4 mg 03/06/22 13:48 03/06/22 13:59 Ondansetron 4mg/2ml Vial IV 03/06/22 13:49 4 mg ONCE ONE Administration ORDERS Category Date Time Status Rapid PCR Covid and Flu A/B Stat Lab 03/06/22 16:26 Received Troponin I Q3H Lab 03/06/22 17:15 Ordered Troponin I Q3H Lab 03/06/22 20:15 Ordered Urinalysis and Microscopic Stat Lab 03/06/22 14:11 Ordered - Radiology Data #1 Image(s): Chest Image Reviewed: Yes I reviewed the patient's radiology image, Yes I have reviewed radiologist's interpretation Preliminary Findings: Normal/NAD Procedure(s): XR chest portable Accession Number(s): [id number] cc: Ulises Trujillo MD; Suzi Burns~ FINAL REPORT CLINICAL HISTORY: weakness FINDINGS: SINGLE VIEW CHEST. The heart is normal in size. The mediastinum is unremarkable. The lungs are little underinflated. There is no pneumothorax. IMPRESSION: No acute process. Reviewed, Interpreted and Dictated by Ulises Trujillo MD Transcribed by Salina Martino Authenticated by Ulises Trujillo MD on 03/06/2022 03:28:02 PM [facility] - ECG Data Tracing #1 EKG interpreted by Colin Bruno MD: Rhythm: sinus Rate: 87 [place]: normal Ectopy: none Conduction: normal ST S
[2022-03-06 14:13] LABS: Basophils # 0.1 K/mm3 (0-0.2); Basophils % 0.7 % (0.1-2.0); Eosinophils # 0.2 K/mm3 (0.0-0.4); Eosinophils % 1.9 % (0.1-12.0); Hemoglobin 13.8 g/dL (12.2-16.2); Lymphocytes # 2.3 K/mm3 (0.7-4.5); Lymphocytes % 22.6 % (10-50); Mean Corpuscular HGB Conc 31.4 g/dL (31.8-35.4); Mean Corpuscular Hemoglobin 28.5 pg (27.0-31.2); Mean Corpuscular Volume 90.7 fl (81-99); Mean Platelet Volume 9.1 fl (7.4-10.4); Monocytes # 0.5 K/mm3 (0.1-1.0); Monocytes % 5.1 % (1.7-9.3); Neutrophils # 7.1 K/mm3 (1.8-7.8); Neutrophils % 69.7 % (37.0-80.0); Platelet Count 357 K/mm3 (142-424); Red Blood Count 4.86 M/mm3 (4.20-5.40); Red Cell Distribution Width 14.6 % (11.5-17.5); White Blood Count 10.2 K/mm3 (4.8-10.8)
--- NOTE | 2022-03-06 14:20 | XR_ITS ---
FINAL REPORT CLINICAL HISTORY: weakness FINDINGS: SINGLE VIEW CHEST. The heart is normal in size. The mediastinum is unremarkable. The lungs are little underinflated. There is no pneumothorax. IMPRESSION: No acute process. Reviewed, Interpreted and Dictated by Ulises Trujillo MD Transcribed by Salina Martino Authenticated by Ulises Trujillo MD on 03/06/2022 03:28:02 PM [facility]
[2022-03-06 14:23] LABS: Chloride 96 mmol/L (98-107)
[2022-03-06 14:24] LABS: Potassium 3.5 mmoL/L (3.5-5.1); Sodium 137 mmol/L (136-145)
[2022-03-06 14:26] LABS: Alanine Aminotransferase 17 U/L (12-78); Aspartate Amino Transferase 36 U/L (14-36); Blood Urea Nitrogen 11 mg/dl (7-17); Creatinine Clearance Estimated 155 mL/min (50-200); Estimated Glomerular Filt Rate 74 ml/min (>60); GFR (African American) 90 ML/MIN (>60)
[2022-03-06 14:27] LABS: Albumin Level 3.7 g/dl (3.5-5.0); Albumin/Globulin Ratio 1.1 (1.1-1.8); Alkaline Phosphatase 91 U/L (38-126); Anion Gap 8.5 mEq/L (5-15); Bilirubin,Total 0.4 mg/dl (0.2-1.3); Calcium 9.7 mg/dl (8.4-10.2); Carbon Dioxide 36 mmol/L (22.0-30.0); Globulin 3.3 g/dL (1.3-3.2); Glucose 166 mg/dl (74-100); Lipase 53 U/L (23-300)
[2022-03-06 14:43] LABS: Troponin I < 0.01 ng/ml (0.00-0.034)
--- NOTE | 2022-03-06 15:24 | ECG_ITS ---
APPROVED REPORT Exam: Resting ECG HR:87 bpm ECG Measurements Heart Rate 87 AXES PA 177 P 21 QRSd 97 QRS -12 QT 395 T 69 QTc 439 Conclusion SINUS RHYTHM LOW QRS VOLTAGE IN PRECORDIAL LEADS [QRS DEFLECTION < 1.0 mV IN CHEST LEADS] PATTERN CONSISTENT WITH PULMONARY DISEASE Isolated Q in III UNCONFIRMED REPORT Electronically signed by : Jimenez Suárez MD 03/07/2022 08:00:24
--- NOTE | 2022-03-06 15:30 | PC.NURSE ---
Dr Patterson on with Dr Bruno
--- NOTE | 2022-03-06 15:42 | PC.NURSE ---
Kaya Vázquez Care Management here to see PT
--- NOTE | 2022-03-06 15:55 | CARE MANAGER ---
Addendum entered by Gloria Castrejon 03/07/22 13:24: Mulu with [facility] has accepted this patient and stated she can accept her today. Patient will not require an additional COVID swab. I have updated patient and MD of discharge plans. Addendum entered by Gloria Castrejon 03/07/22 09:54: Patient information has been faxed to [facility] and [facility]. [facility] currently does not have any female beds available. Original Note: Dr. Patterson called and stated that patient is in the ER and needs placement, this social work case manager spoke to patient and her sister who states she cannot take care of her right now as she has fallen and need shoulder surgery. I did relay this information to Dr. Patterson who states that he will admit her and planner chief/social work case manager will see in the am.
--- NOTE | 2022-03-06 16:24 | PC.NURSE ---
Medicated pt per JAN. Updated her on POC and that she was going to be admitted. PT agreeable with POC. No new needs
[2022-03-06 16:33] LABS: Coronavirus 19, PCR Not Detected (NotDetected); Influenza A, PCR Not Detected (NotDetected); Influenza B, PCR Not Detected (NotDetected)
--- NOTE | 2022-03-06 17:44 | PC.NURSE ---
Gave report to AshleyRN
--- NOTE | 2022-03-06 17:52 | PC.NURSE ---
covid swab has not resulted. will arrange transport when results are in
[2022-03-06 23:03] LABS: POC Glucose,Bedside 198 (70-110)
[2022-03-07 04:00] VITALS: BP 116/60; PULSE 86; RESP 16; TEMP 36.6; O2SAT 96
[2022-03-07 05:58] VITALS: BMI 35.9
[2022-03-07 06:26] VITALS: PULSE 71; PULSE 74; O2SAT 84
--- NOTE | 2022-03-07 07:30 | P.CONPHA_ITS ---
[facility] Pharmacy VTE Monitoring - Patient Demographics Admission date: 03/07/22 Report Date: 03/07/22 Time: 07:30 Allergies/Adverse Reactions: Patient Allergies protamine Allergy (Verified 02/11/22 10:57) Height: 1.75 m Weight: 109.939 kg Patient Problems: Current Active Problems Gastroenteritis (Acute) Weakness (Acute) Dehydration (Acute) - VTE Risk Labs: VTE Related Lab Results Hgb 13.8 g/dL (12.2-16.2) 03/06/22 14:00 Hct 44.0 % (37.0-47.0) 03/06/22 14:00 Plt Count 357 K/mm3 (142-424) 03/06/22 14:00 BUN 11 mg/dl (7-17) 03/06/22 14:00 Creatinine 0.80 mg/dl (0.52-1.04) 03/06/22 14:00 Estimated Creat Clear 155 mL/min (50-200) 03/06/22 14:00 Was VTE Risk Assessment Performed: Yes VTE Score: 12 VTE Risk Level: Moderate Risk Clinical Trial Participant: No - Prophylaxis VTE Prophylaxis Ordered?: Yes Types of VTE Prophylaxis: TEDS Knee High, Pharmacological Pharmacologic Type: Other (XARELTO)
[2022-03-07 08:00] VITALS: BP 117/64; PULSE 72; RESP 16; TEMP 36.6; O2SAT 96
--- NOTE | 2022-03-07 08:59 | HMH.PHAINT ---
Home medication list has been verified using the patient's PBM claim history and med-rec from recent visit with one of our providers.
--- NOTE | 2022-03-07 10:05 | HMH.HP ---
*Admission Date: 03/07/22 *Chief complaint: acute gastroenteritis *History of present illness: 56 yo female presents with constellation of features suggesting gastroenteritis with dehydration. History of cva with right sided weakness. S/P bka left. Progression of dehydration/nausea/diarrhea prompted visit. Cared for by sister, who subsequently injured shoulder. Previously assisted patient, details reviewed in ER note [facility] History I have reviewed the patient's past medical history: Yes Medical History: Reports:: Anxiety, Atherosclerotic Heart Disease, Cardiomyopathy, Congestive Heart Failure, Chronic Obstructive Pulmonary Disease (COPD), Coronary Artery Disease, Cerebrovascular Accident, Depression, Diabetes Mellitus Type 2, Hyperlipidemia, Hypertension, Peripheral Artery Disease, Peripheral Vascular Disease Denies:: Cancer, Diabetes Mellitus Type 1, Internal Pacemaker, MRSA, Seizures *Have you ever received a pneumonia vaccine?: Yes *Have you received a flu vaccine this season?: Yes Other Medical History: Reports: Cataracts, Hypothyroidism, Thyroid Disease. Denies: Blood Transfusion Reaction Laterality Cases: Bilateral: Other Other Surgeries: Yes: Cardiac Catheterization, Cardiac Surgery, Cholecystectomy, Colonoscopy, Coronary Stent, Thyroidectomy, Tubal Ligation, Other. No: Pacemaker Amputation: Yes (LBKA) Fractures: No - *Social History Last grade of school completed: High school graduate Smoking Status: Former smoker Tobacco Type: cigarettes # Packs/Day (cigarettes): 1 #Yrs smoked (if former smoker): 30 Alcohol Intake: never Substance Use Type: denies use *Occupational Status:: disabled Housing: house Household Members: family *Travel in the last 8 weeks: None - Psychiatric History Pschychiatric History:: Reports:: Anxiety, Depression Family Hx:: Cancer, Coronary Artery Disease, Heart Attack, Hyperlipidemia, Hypertension Review of Systems - Constitutional Reports anorexia, Reports fatigue, Reports lack of energy - Eyes Denies change in vision - ENT Denies change in voice - *Cardiovascular Denies chest pain - *Respiratory Denies shortness of breath - *Gastrointestinal Reports abdominal pain, Reports bloating, Reports change in bowel habits, Reports incontinent of stools, Reports loose stools - *Genitourinary Denies heavy periods - *Neurologic Reports weakness - Endocrine Denies cold intolerance - Hematologic/Lymphatic Denies easy bruising - Allergic/Immunologic Denies hives Meds Home Medications Medication Instructions Recorded Confirmed Type acetaminophen 500 mg tablet 1,000 mg PO Q6HP PRN #120 tab 12/11/20 03/06/22 Rx albuterol sulfate 90 mcg/actuation 2 puff INHALATION Q4HP PRN #6.7 g 01/07/22 03/06/22 Rx aerosol inhaler atorvastatin 80 mg tablet 80 mg PO HS #90 tab 01/07/22 03/06/22 Rx buspirone 15 mg tablet 15 mg PO TID #90 tab 01/07/22 03/06/22 Rx carvedilol 3.125 mg tablet 3.125 mg PO BID #120 tab 01/07/22 03/06/22 Rx levothyroxine 150 mcg tablet 150 mcg PO DAILY #90 tab 01/07/22 03/06/22 Rx lisinopril 10 mg tablet 10 mg PO DAILY #90 tab 01/07/22 03/06/22 Rx melatonin 3 mg tablet 3 mg PO HS #90 tab 01/07/22 03/06/22 Rx rivaroxaban 2.5 mg tablet 2.5 mg PO BID #180 tab 01/07/22 03/06/22 Rx sitagliptin 100 mg tablet 100 mg PO DAILY #90 tab 01/07/22 03/06/22 Rx clonazepam 0.5 mg tablet 0.5 mg PO TID #90 tab 02/11/22 03/06/22 Rx gabapentin 600 mg tablet 600 mg PO QID #120 tab 02/11/22 03/06/22 Rx hydrocodone 7.5 mg-acetaminophen 1 tab PO Q6H #120 tab 02/11/22 03/06/22 Rx 325 mg tablet Cholecalciferol (Vitamin D3) 25 mcg PO DAILY 03/06/22 03/06/22 History [Vitamin D3 1,000 Unit Cap] Duloxetine HCl [Cymbalta] 60 mg PO DAILY 03/06/22 03/06/22 History Ergocalciferol (Vitamin D2) 1.25 mg PO WEEKLY 03/06/22 03/07/22 History [Drisdol] Furosemide [Furosemide 40MG tAB*] 40 mg PO DAILY 03/06/22 03/06/22 History Insulin NPH Hum/Reg Insulin Hm 24 units SQ BID 03/06/22 03/06/22
--- NOTE | 2022-03-07 11:00 | HMH.OTEV ---
OT Inpatient Evaluation Rehab OT IP Evaluation Start: 03/07/22 10:20 Freq: ONCE Status: Complete Protocol: Document 03/07/22 10:47 SEJAL (Rec: 03/07/22 11:00 [facility] [id number]) Rehab OT IP Assessment Subjective History Pt oriented x 3 on arrival. Pt agreeable to engage in therapy evaluation. Pt was admitted via ED on 03/06/22 due to weakness. Pt reports she was living with her sister prior to being admitted to the hospital. [facility] a [facility] at a [facility], but the [facility] closed down requiring her to live with her sister. Normally when she is well, pt required assistance with all ADLs. 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 Pt was dependent upon others for IADLS. P'ts sister has injured herself and is unable to care for her at this time. Pt used a wheelchair prior. The following information was copied from history and physical report: 56 yo female presents with constellation of features suggesting gastroenteritis with dehydration. History of cva with right sided weakness. S/P bka left. Progression of dehydration/ nausea/diarrhea prompted visit . Cared for by sister, who subsequently injured shoulder. Previously [facility] patient, details reviewed in ER note Subjective I need help with everything. Pt resting in bed on arrival. Pt required max assist x 2 to complete bed mobility and go from supine to sitting at eob. Pt was able to sit up for ~1 minute with mod assist prior to having to lay back down.
--- NOTE | 2022-03-07 11:38 | HMH.PTEV ---
Physical Therapy Evaluation Rehab PT IP Evaluation Start: 03/07/22 10:20 Freq: ONCE Status: Active Protocol: Document 03/07/22 11:34 JONI (Rec: 03/07/22 11:38 JONI [id number]) Subjective/History History History Pt is well known to therapy from multiple visits to IP and OP wound care. Pt is a 56 y/ o female admitted to [facility] for weakness due to dehydration. Pt had several days of diarrhea and vomiting and was unable to eat much. Pt became dehydrated and weak. Pt was at SNF for rehab and care, but SNF closed and pt went home w / sister. Sister has recently injured her shoulder and can not care for pt. Pt has L BKA , and R side hemiparesis from CVA Subjective Subjective Pt agrees to sit EOB Rehab PT IP Eval Objective Appearance Patient Behavior Cooperative Patient Orientation Place,Name,Birthday,Year Difficulty following instructions none Speech Pattern Appropriate Ambulation Patient Able to Ambulate No Balance Ability to Arise Unable Sitting Balance Leans or slides in chair Dynamic Sitting Balance Ability Fair Dynamic Standing Balance Ability Zero Transfers Bed Transfer Ability Maximum x 1 (75% assist) Rehab PT IP prob,goals,plan Problems Date of Evaluation: 03/07/22 PT IP Problems Bed Mobility,Transfers,Balance ,Self care,Safety Rehab Potential Rehab Potential Fair Equipment Needs Assistive Devices Wheelchair Plan PT Intervention Plan Bed Mobility,Transfers,Balance ,Self care,Therapeutic Exercise PT Plan Frequency BID Duration LOS Discharge Goals Bed Transfer Ability Maximum x 1 (75% assist) Sit to Stand Chair Transfer Ability Total/Dependent (100%) Discharge Plan PT Discharge Plan Pt will benefit from skilled therapy while at [facility] and will continue to need skilled therapy to allow pt to improve evel of function, increase independence and decrease reliance on care givers. After d/c pt will
[2022-03-07 13:03] VITALS: BMI 35.6
--- NOTE | 2022-03-07 13:28 | HMH.DCSUM ---
General - General Admission date:: 03/06/22 Discharge date: 03/07/22 HPI HPI: 56 yo female presents with constellation of features suggesting gastroenteritis with dehydration. History of cva with right sided weakness. S/P bka left. Progression of dehydration/nausea/diarrhea prompted visit. Cared for by sister, who subsequently injured shoulder. Previously half-way patient, details reviewed in ER note Hospital Course Hospital Course: pt was admitted for ivf pulmonary infiltration noted incidentally [facility] ct abdom[facility]-way bed patient clearly needs assistance with care Objective Vital signs: Temp Pulse Resp BP Pulse Ox 97.9 F 72 16 117/64 96 03/07/22 08:00 03/07/22 08:00 03/07/22 08:00 03/07/22 08:00 03/07/22 08:00 chronically ill appearing - *Routine HEENT Exam Head: Present: normocephalic Eye: Present: EOMI, PERRL ENT: Present: mucous membranes moist - *Routine Neck Exam Present: supple - *Routine Respiratory Exam Present: CTA bilaterally - *Routine Cardiovascular Exam Present: RRR - *Routine Abdominal Exam Present: soft, normoactive bowel sounds. Absent: tenderness - *Routine Extremities Exam Present: amputation. Absent: cyanosis, clubbing, edema, tenderness - *Routine Skin Exam Present: warm. Absent: rash Results Labs on day of discharge: Labs from last 24 hours 03/06/22 03/06/22 03/06/22 21:07 16:26 14:00 WBC RBC Hgb Hct MCV MCH MCHC RDW Plt Count MPV Neut % (Auto) Lymph % (Auto) Kay % (Auto) Eos % (Auto) Baso % (Auto) Neut # (Auto) Lymph # (Auto) Kay # (Auto) Eos # (Auto) Baso # (Auto) Sodium Potassium Chloride Carbon Dioxide Anion Gap BUN Creatinine Estimated Creat Clear Estimated GFR Est GFR ( Amer) Glucose POC Glucose 198 H Calcium Total Bilirubin AST ALT Alkaline Phosphatase Troponin I < 0.01 Total Protein Albumin Globulin Albumin/Globulin Ratio Lipase 53 SARS-CoV-2 (PCR) Not detected Influenza A Untype (PCR) Not detected Influenza Type B (PCR) Not detected 03/06/22 03/06/22 14:00 14:00 WBC 10.2 RBC 4.86 Hgb 13.8 Hct 44.0 MCV 90.7 MCH 28.5 MCHC 31.4 L RDW 14.6 Plt Count 357 MPV 9.1 Neut % (Auto) 69.7 Lymph % (Auto) 22.6 Kay % (Auto) 5.1 Eos % (Auto) 1.9 Baso % (Auto) 0.7 Neut # (Auto) 7.1 Lymph # (Auto) 2.3 Kay # (Auto) 0.5 Eos # (Auto) 0.2 Baso # (Auto) 0.1 Sodium 137 Potassium 3.5 Chloride 96 L Carbon Dioxide 36 H Anion Gap 8.5 BUN 11 Creatinine 0.80 Estimated Creat Clear 155 Estimated GFR 74 Est GFR ( Amer) 90 Glucose 166 H POC Glucose Calcium 9.7 Total Bilirubin 0.4 AST 36 ALT 17 Alkaline Phosphatase 91 Troponin I Total Protein 7.0 Albumin 3.7 Globulin 3.3 H Albumin/Globulin Ratio 1.1 Lipase SARS-CoV-2 (PCR) Influenza A Untype (PCR) Influenza Type B (PCR) DS: Diagnosis - Discharge Diagnosis (1) Dehydration Status: Acute (2) Gastroenteritis Status: Acute (3) Weakness Status: Acute (4) HTN (hypertension) Status: Chronic (5) History of CVA (cerebrovascular accident) Status: Chronic (6) Hyperlipidemia Status: Chronic (7) Left-sided weakness Status: Chronic (8) Obesity Status: Chronic (9) 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
--- NOTE | 2022-03-07 14:20 | PC.NURSE ---
Report called to Rita at [facility]. [facility] has been notified of need for transport and will be here shortly.
--- NOTE | 2022-03-07 15:03 | PC.NURSE ---
[facility] here for transport.
[2022-03-07 18:02] LABS: POC Glucose,Bedside 163 (70-110)
[2022-03-07 18:02] LABS: POC Glucose,Bedside 139 (70-110)
--- NOTE | 2022-03-08 14:03 | CARE MANAGER ---
Contacted [facility] to follow up on patient following hospital discharge. Nurse states she is doing well. Denies any questions or concerns.
== END 2022-03-07 15:24 ==
LOC: ER 16:56 → 2ND 16:59
PROVIDERS: Admitting Provider Emergency Medicine; Emergency Provider Emergency Medicine; PCP Physician Assistant; Visit Provider Emergency Medicine
DX: E86.0 Dehydration (principal); Z20.822 Contact with and (suspected) exposure to COVID-19; I25.10 Atherosclerotic heart disease of native coronary artery without angina pectoris; I42.9 Cardiomyopathy, unspecified; I11.0 Hypertensive heart disease with heart failure; I50.9 Heart failure, unspecified; J44.9 Chronic obstructive pulmonary disease, unspecified; E11.9 Type 2 diabetes mellitus without complications; Z95.5 Presence of coronary angioplasty implant and graft; E03.9 Hypothyroidism, unspecified; F17.210 Nicotine dependence, cigarettes, uncomplicated; Z79.4 Long term (current) use of insulin; Z79.899 Other long term (current) drug therapy; I69.351 Hemiplegia and hemiparesis following cerebral infarction affecting right dominant side; Z89.512 Acquired absence of left leg below knee
CPT/HCPCS: G0378; 71045; 80053; 82962; 83690; 84484; 85025; 93005; 94640; 94760; 96365; 96375; 97166; 99285; C9803; J2405; U0003; U0005

== ENCOUNTER 2022-05-07 11:53 | Inpatient (IN) | payer MEDICARE, MEDICAID, SELFPAY ==
[2022-05-07] VITALS (9 sets, daily range): BP systolic 78–150; BP diastolic 51–83; PULSE 69–100; RESP 17–23; TEMP 36.5–36.9; O2SAT 89–95; BMI 37.8; BMI 38.0
--- NOTE | 2022-05-07 11:56 | XR_ITS ---
FINAL REPORT CLINICAL HISTORY: fall FINDINGS: SINGLE VIEW PELVIS: A single view of the pelvis was obtained. There is no acute fracture or dislocation. There is mild degenerative change of both hips. There is left hip vascular calcification. IMPRESSION: No acute bony abnormality. Reviewed, Interpreted and Dictated by Jude Vora III, MD Transcribed by Salina Martino Authenticated and . [facility]
--- NOTE | 2022-05-07 11:56 | CT_ITS ---
FINAL REPORT TECHNIQUE: Axial CT images were obtained through the facial bones/sinuses. Coronal reformats were obtained. This study was performed with techniques to keep radiation doses as low as reasonably achievable (ALARA). Individualized dose reduction techniques using automated exposure control or adjustment of mA and/or kV according to the patient's size were employed. CLINICAL HISTORY: fall FINDINGS: There is is a nondisplaced fracture of the distal nasal bones. There is a fracture of the anterior nasal spine. The orbits are intact. The globes are unremarkable. There is presumed hemorrhage in the nasal cavity. There is a small fluid level in the right maxillary sinus that may represent hemorrhage. IMPRESSION: Nondisplaced fractures of the distal nasal bones and anterior nasal spine. Reviewed, Interpreted and Dictated by Jude Vora III, MD Transcribed by Bruno Jaimes Authenticated and [facility]
--- NOTE | 2022-05-07 11:56 | CT_ITS ---
FINAL REPORT CLINICAL HISTORY: fall FINDINGS: Axial CT images of the cervical spine were obtained without contrast. Sagittal and coronal reformatted images were also obtained. This study was performed with techniques to keep radiation doses as low as reasonably achievable (ALARA). Individualized dose reduction techniques using automated exposure control or adjustment of mA and/or kV according to the patient''s size were employed. There is no evidence of fracture or dislocation. The bony alignment is normal. There are mild degenerative changes. There are small central disc protrusions at C2-C3 and C3-C4. There is no evidence of canal stenosis. No paraspinous soft tissue abnormality is seen. Limited images of the upper thorax are unremarkable. IMPRESSION: No fracture or acute bony abnormality identified. Reviewed, Interpreted and Dictated by Jude Vora III, MD Transcribed by Bruno Jaimes Authenticated and [facility]
--- NOTE | 2022-05-07 11:56 | XR_ITS ---
FINAL REPORT CLINICAL HISTORY: fall FINDINGS: RIGHT TIBIA FIBULA 2 views were obtained. There is no acute fracture or dislocation. There is mild degenerative change of the knee and ankle. There are vascular calcifications. IMPRESSION: No acute bony abnormality. Reviewed, Interpreted and Dictated by Jude Vora III, MD Transcribed by Salina Martino Authenticated and [facility]
--- NOTE | 2022-05-07 11:56 | CT_ITS ---
FINAL REPORT CLINICAL HISTORY: fall FINDINGS: Axial images of the head were obtained without contrast. Coronal reformatted images were also obtained. This study was performed with techniques to keep radiation doses as low as reasonably achievable (ALARA). Individualized dose reduction techniques using automated exposure control or adjustment of mA and/or kV according to the patient's size were employed. There is generalized age-appropriate atrophy. Periventricular low-attenuation areas are seen consistent with moderate chronic ischemic changes. There is no evidence of intracranial hemorrhage or mass. There is no evidence of acute infarct. There is no evidence of shift of the midline structures. No skull abnormality is seen on the bone window images. There is a left frontal scalp hematoma. IMPRESSION: No acute intracranial abnormality identified. Left frontal scalp hematoma. Atrophy and mild periventricular chronic ischemic changes. Reviewed, Interpreted and Dictated by Jude Vora III, MD Transcribed by Salina Martino Authenticated and [facility]
--- NOTE | 2022-05-07 11:56 | XR_ITS ---
FINAL REPORT CLINICAL HISTORY: fall FINDINGS: A single portable view of the chest was obtained. The heart size and pulmonary vascularity are within normal limits. The mediastinum is within normal limits. No acute pulmonary abnormality is identified. The bony thorax is intact. IMPRESSION: No active cardiopulmonary disease. Reviewed, Interpreted and Dictated by Jude Vora III, MD Transcribed by Salina Martino Authenticated and [facility]
--- NOTE | 2022-05-07 11:58 | HMH.EDGENADL ---
ED Disposition Clinical Impression: Right femoral fracture Qualifiers: Encounter type: initial encounter Femur location: shaft Fracture type: closed Fracture morphology: comminuted Fracture alignment: displaced Qualified Code(s): S72.351A - Displaced comminuted fracture of shaft of right femur, initial encounter for closed fracture Nasal fracture Qualifiers: Encounter type: initial encounter Fracture type: closed Qualified Code(s): S02.2XXA - Fracture of nasal bones, initial encounter for closed fracture Disposition: Admitted As Inpatient Condition on Discharge: Fair Referrals: Suzi Burns PA [Primary Care Provider] - - Critical Care Critical Care Time: No Attestation: On , the high probability of a clinically significant, sudden or life threatening deterioration of the following system(s) required my full and direct attention, intervention and personal management. The time I documented below is in addition to time spent performing reported procedures but includes the following listed in this critical care notation. Medical Decision Making - Edgar Inquiry Pt receiving controlled substance: Yes Edgar was queried for this patient: Yes Risks and benefits of using a controlled substance: were not discussed with pt by me Vital Signs: 05/07/22 11:54 05/07/22 11:55 Temperature 97.7 F Temperature Source Oral Pulse Rate [Left Radial] 82 Respiratory Rate 18 Blood Pressure [Right Arm] 108/79 L Blood Pressure Mean [Right Arm] 88 Blood Pressure Source [Right Arm] Automatic Cuff Blood Pressure Position [Right Arm] Sitting 02 Sat by Pulse Oximetry 89 L 94 L Oxygen Delivery Method Room Air Nasal Cannula Oxygen Flow Rate (LPM) 2 - Lab Data Lab Results 05/07/22 13:11: WBC 12.0 H, RBC 4.11 L, Hgb 12.5, Hct 38.8, MCV 94.2, MCH 30.3, MCHC 32.2, RDW 17.2, Plt Count 331, MPV 8.6, Neut % (Auto) 71.1, Lymph % (Auto) 17.1, [place] % (Auto) 4.9, Eos % (Auto) 5.2, Baso % (Auto) 1.7, Neut # (Auto) 8.5 H, Lymph # (Auto) 2.1, [place] # (Auto) 0.6, Eos # (Auto) 0.6 H, Baso # (Auto) 0.2 05/07/22 13:11: Sodium 134 L, Potassium 4.6, Chloride 94 L, Carbon Dioxide 34 H, Anion Gap 10.6, BUN 39 H, Creatinine 0.90, Estimated Creat Clear 128, Estimated GFR 65, Est GFR ( Amer) 78, Glucose 159 H, Calcium 9.6, Total Bilirubin 0.4, AST 30, ALT 19, Alkaline Phosphatase 91, Total Protein 7.1, Albumin 3.8, Globulin 3.3 H, Albumin/Globulin Ratio 1.2 Result diagrams: 05/07/22 13:11 05/07/22 13:11 Orders (Tests/Meds): ED MEDICATIONS Discontinued Medications Generic Name Dose Route Start Last Admin Trade Name Freq PRN Reason Stop Dose Admin Morphine Sulfate 4 mg 05/07/22 12:57 05/07/22 13:13 Morphine 4mg/Ml Syringe IV 05/07/22 12:58 4 mg ONCE ONE Administration Ondansetron HCl 4 mg 05/07/22 12:58 05/07/22 13:13 Ondansetron 4mg/2ml Vial IV 05/07/22 12:59 4 mg ONCE ONE Administration ORDERS Category Date Time Status Consult to Orthopedic Surgery [CONS] Stat Cons 05/07/22 13:57 Ordered Hemoglobin A1C Stat Lab 05/07/22 13:11 Received Rapid PCR Covid and Flu A/B Stat Lab 05/07/22 14:22 Ordered - Radiology Data #1 Image(s): Chest, Pelvis, Femur, Tib/Fib Image Reviewed: Yes I reviewed the patient's radiology image, Yes I have reviewed radiologist's interpretation Procedure(s): XR femur RT 2V Accession Number(s): [id number] cc: Jude Vora MD; Suzi Burns~ FINAL REPORT CLINICAL HISTORY: FALL FINDINGS: RIGHT FEMUR 2 views were obtained. There is a comminuted fracture of the distal femoral diaphysis with 20 mm of lateral displacement of the main distal fracture fragment. There is also anterior displacement the distal fracture fragments. There is mild degenerative change the hip and knee. There is moderate vascular calcification. IMPRESSION: Femoral fracture as above. Reviewed, Interpreted and Dictated by Jude Vora III, MD Transcribed by
--- NOTE | 2022-05-07 12:20 | PC.NURSE ---
pt faced clean, hair washed and gown changed, blankets placed for comfort and turned on right side per pt request. Pt tolerated well and verbalized comfort.
--- NOTE | 2022-05-07 12:21 | PC.NURSE ---
pt to CT
--- NOTE | 2022-05-07 12:29 | PC.NURSE ---
pt to radiology
--- NOTE | 2022-05-07 12:42 | XR_ITS ---
FINAL REPORT CLINICAL HISTORY: FALL FINDINGS: RIGHT FEMUR 2 views were obtained. There is a comminuted fracture of the distal femoral diaphysis with 20 mm of lateral displacement of the main distal fracture fragment. There is also anterior displacement the distal fracture fragments. There is mild degenerative change the hip and knee. There is moderate vascular calcification. IMPRESSION: Femoral fracture as above. Reviewed, Interpreted and Dictated by Jude Vora III, MD Transcribed by Salina Martino Authenticated and [facility]
--- NOTE | 2022-05-07 12:50 | PC.NURSE ---
pt returned from CT
--- NOTE | 2022-05-07 13:04 | PC.NURSE ---
pt sister at
[2022-05-07 13:20] LABS: Basophils # 0.2 K/mm3 (0-0.2); Basophils % 1.7 % (0.1-2.0); Eosinophils # 0.6 K/mm3 (0.0-0.4); Eosinophils % 5.2 % (0.1-12.0); Hematocrit 38.8 % (37.0-47.0); Hemoglobin 12.5 g/dL (12.2-16.2); Lymphocytes # 2.1 K/mm3 (0.7-4.5); Lymphocytes % 17.1 % (10-50); Mean Corpuscular HGB Conc 32.2 g/dL (31.8-35.4); Mean Corpuscular Hemoglobin 30.3 pg (27.0-31.2); Mean Corpuscular Volume 94.2 fl (81-99); Mean Platelet Volume 8.6 fl (7.4-10.4); Monocytes # 0.6 K/mm3 (0.1-1.0); Monocytes % 4.9 % (1.7-9.3); Neutrophils # 8.5 K/mm3 (1.8-7.8); Neutrophils % 71.1 % (37.0-80.0); Platelet Count 331 K/mm3 (142-424); Red Blood Count 4.11 M/mm3 (4.20-5.40); Red Cell Distribution Width 17.2 % (11.5-17.5)
[2022-05-07 13:24] LABS: Chloride 94 mmol/L (98-107)
[2022-05-07 13:25] LABS: Potassium 4.6 mmoL/L (3.5-5.1); Sodium 134 mmol/L (136-145)
[2022-05-07 13:27] LABS: Alanine Aminotransferase 19 U/L (12-78); Alkaline Phosphatase 91 U/L (38-126); Anion Gap 10.6 mEq/L (5-15); Aspartate Amino Transferase 30 U/L (14-36); Bilirubin,Total 0.4 mg/dl (0.2-1.3); Blood Urea Nitrogen 39 mg/dl (7-17); Carbon Dioxide 34 mmol/L (22.0-30.0); Creatinine Clearance Estimated 128 mL/min (50-200); Estimated Glomerular Filt Rate 65 ml/min (>60); GFR (African American) 78 ML/MIN (>60)
[2022-05-07 13:28] LABS: Albumin Level 3.8 g/dl (3.5-5.0); Albumin/Globulin Ratio 1.2 (1.1-1.8); Calcium 9.6 mg/dl (8.4-10.2); Globulin 3.3 g/dL (1.3-3.2); Glucose 159 mg/dl (74-100); Total Protein,Serum 7.1 g/dl (6.3-8.2)
--- NOTE | 2022-05-07 14:15 | PC.NURSE ---
SEMAJ MELÉNDEZ SPEAKING WITH DR. HUDSON
--- NOTE | 2022-05-07 14:20 | PC.NURSE ---
ED SPEAKING WITH DR. LAL FOR ADMISSION
--- NOTE | 2022-05-07 14:23 | PC.NURSE ---
SPOKE TO SHAHRIAR FROM CARE MANAGEMENT ABOUT ADMISSION
[2022-05-07 14:25] LABS: Coronavirus 19, PCR Not Detected (NotDetected); Influenza A, PCR Not Detected (NotDetected); Influenza B, PCR Not Detected (NotDetected)
[2022-05-07 14:48] LABS: Hemoglobin A1C 9.1 % (4.0-6.0)
--- NOTE | 2022-05-07 15:16 | PC.NURSE ---
Report called to Ольга HARRELL.
--- NOTE | 2022-05-07 15:24 | PC.NURSE ---
PT REPOSITIONED IN BED, STATED HER PAIN WAS A LITTLE BETTER.
--- NOTE | 2022-05-07 15:37 | SW/DCPLANNER ---
Addendum entered by Gloria Emporia 05/14/22 15:20: Cornelia martin/ [facility] has stated that she is able to accept this patient for tomorrow. Patient's sister has arranged with [facility] to bring patient's bariatric bed from home to [facility] tomorrow morning. I will update Mulu martin/ [facility] that the plan is to discharge to [facility]. Addendum entered by Gloria Emporia 05/14/22 13:05: Bettina martin/ [facility] stated that she would only have a SNF bed available and this patient will need LTC. 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 Cornelia is continuing to review patient information. Addendum entered by Gloria Castrejon 05/14/22 10:07: Per patient/family request information was faxed to [facility] and [facility] by CM. I spoke with Cornelia from [facility]: still reviewing patient information and Bettina: will follow up with patient's family today. Original Note: This patient currently resides at [facility] level of care per Mulu martin/ [facility]. I will continue to follow up with Mulu during patient's hospital admission. Discharge date is unknown at this time.
--- NOTE | 2022-05-07 16:00 | PC.NURSE ---
repositioned pt for comfort
--- NOTE | 2022-05-07 16:04 | PC.NURSE ---
transporting pt to second floor via wheelchair, notified niya tim
--- NOTE | 2022-05-07 16:12 | PC.NURSE ---
Pt arrived to the floor at this time
[2022-05-07 20:58] LABS: POC Glucose,Bedside 128 (70-110)
[2022-05-08] VITALS (9 sets, daily range): BP systolic 70–141; BP diastolic 40–62; PULSE 86–93; RESP 16–20; TEMP 37.2–37.7; O2SAT 90–95; BMI 38.6
--- NOTE | 2022-05-08 04:45 | PC.NURSE ---
Pt alert and oriented. Pt c/o severe pain with slight movement. Has a pressure ulcer on coccyx. Turned q2. Pt may need a cindy bed but waiting till after her surgery. Dr. Weinberg wanted to know at what time Pt look last dose of xeralto. Called [employer] since [facility] only stated [facility] unable to reach the [facility] via phone or fax. called several times and the house superviosr also called several times as well and was unable to reach anyone. Pt has been npo since 4am per Dr. Weinberg request.
--- NOTE | 2022-05-08 04:54 | CT_ITS ---
PROCEDURE INFORMATION: Exam: CT Right Lower Extremity Without Contrast, Knee Exam date and time: 05/08/2022 5:51 AM Age: 56 years old Clinical indication: Injury or trauma; Fall; Injury date: 05/07/22; Additional info: Post fall exam TECHNIQUE: Imaging protocol: CT of the Right lower extremity without contrast was performed. Exam focused on the knee. Radiation optimization: All CT scans at this facility use at least one of these dose optimization techniques: automated exposure control; mA and/or kV adjustment per patient size (includes targeted exams where dose is matched to clinical indication); or iterative reconstruction. COMPARISON: CR XR KNEE RT 3V 10/16/2021 2:32 PM FINDINGS: Bones/joints: Comminuted fracture of the distal femur is identified. Moderate-sized joint effusion is seen. The patient is diffusely osteopenic. The fracture is comminuted and displaced by approximately 1 shaft width. Soft tissues: Normal. IMPRESSION: 1. Comminuted distal femur fracture as described. 2. Diffuse osteopenia and degenerative changes. 3. Moderate joint effusion.
[2022-05-08 06:40] LABS: POC Glucose,Bedside 169 (70-110)
--- NOTE | 2022-05-08 07:51 | HMH.PHAVTE ---
[facility] Pharmacy VTE Monitoring - Patient Demographics Admission date: 05/08/22 Report Date: 05/08/22 Time: 07:51 Allergies/Adverse Reactions: Patient Allergies protamine Allergy (Verified 05/02/22 19:50) Height: 1.75 m Weight: 118.297 kg Patient Problems: Current Active Problems Right femoral fracture (Acute) Nasal fracture (Acute) - VTE Risk Labs: VTE Related Lab Results Hgb 12.5 g/dL (12.2-16.2) 05/07/22 13:11 Hct 38.8 % (37.0-47.0) 05/07/22 13:11 Plt Count 331 K/mm3 (142-424) 05/07/22 13:11 BUN 39 mg/dl (7-17) H 05/07/22 13:11 Creatinine 0.90 mg/dl (0.52-1.04) 05/07/22 13:11 Estimated Creat Clear 128 mL/min (50-200) 05/07/22 13:11 Clinical Trial Participant: No - Prophylaxis VTE Prophylaxis Ordered?: Yes Types of VTE Prophylaxis: TEDS Knee High
--- NOTE | 2022-05-08 07:57 | HMH.PHAINT ---
home medication list verified using [facility]
--- NOTE | 2022-05-08 08:33 | PC.NURSE ---
Addendum entered by Gloria Young RN 05/08/22 08:35: spoke with patient family in room. educated on plan in regards to bp currently. also educated on plan of care for today, waiting on ortho, primary, and we would check when ent would be available. no questions regarding meds, did educate on holding of the xarelto for now. no other questions or concerns noted from family Original Note: noted patient bp to be on lower end 70s/40s manually and is slightly drowsy. md stated to give a 1 liter bolus ns. new iv placed in the l hand 20 gauge.
--- NOTE | 2022-05-08 09:22 | HMH.HP ---
*Admission Date: 05/08/22 *Chief complaint: Fall *History of present illness: 56-year-old female patient presented to the [facility] emergency department via EMS after fall at longterm. She has right hemiparesis from previous CVA and a left [id number] amputation. She states that she was getting put back into her wheelchair she fell forward and landed face down on floor. She does complain of facial pain and pain in her right lower extremity. Right femoral x-ray reveals: There is a comminuted fracture of the distal femoral diaphysis with 20 mm of lateral displacement of the main distal fracture fragment. There is also anterior displacement the distal fracture fragments. There is mild degenerative change the hip and knee. There is moderate vascular calcification. Facial x-rays reveal nasal bone fracture and septal fracture Ortho and ENT consulted [facility] History I have reviewed the patient's past medical history: Yes Medical History: Reports:: Anxiety, Atherosclerotic Heart Disease, Cardiomyopathy, Congestive Heart Failure, Chronic Obstructive Pulmonary Disease (COPD), Coronary Artery Disease, Cerebrovascular Accident, Depression, Diabetes Mellitus Type 2, Hyperlipidemia, Hypertension, Peripheral Artery Disease, Peripheral Vascular Disease Denies:: Cancer, Diabetes Mellitus Type 1, Internal Pacemaker, MRSA, Seizures *Have you ever received a pneumonia vaccine?: Yes *Have you received a flu vaccine this season?: Yes Other Medical History: Reports: Cataracts, Hypothyroidism, Thyroid Disease. Denies: Blood Transfusion Reaction Laterality Cases: Bilateral: Other Other Surgeries: Yes: Cardiac Catheterization, Cardiac Surgery, Cholecystectomy, Colonoscopy, Coronary Stent, Thyroidectomy, Tubal Ligation, Other. No: Pacemaker Amputation: Yes (LBKA) Fractures: No - *Social History Smoking Status: Former smoker Tobacco Type: cigarettes # Packs/Day (cigarettes): 1 #Yrs smoked (if former smoker): 30 Alcohol Intake: never Alcohol Intake Frequency:: 0-2 drinks per day Substance Use Type: denies use *Occupational Status:: disabled Housing: longterm Household Members: none *Travel in the last 8 weeks: None - Psychiatric History Pschychiatric History:: Reports:: Anxiety, Depression Family Hx:: No significant family history Review of Systems - Review of Systems Review of systems:: unable to obtain Patient lethargic and unable to answer questions. - *Neurologic Denies headache(s) Meds Home Medications Medication Instructions Recorded Confirmed Type acetaminophen 500 mg tablet 1,000 mg PO Q6HP PRN #120 tab 02/01/21 06/28/22 Rx albuterol sulfate 90 mcg/actuation 2 puff INHALATION Q4HP PRN #6.7 g 01/07/22 05/07/22 Rx aerosol inhaler buspirone 15 mg tablet 15 mg PO TID #90 tab 01/07/22 05/07/22 Rx carvedilol 3.125 mg tablet 3.125 mg PO BID #120 tab 01/07/22 05/07/22 Rx lisinopril 10 mg tablet 10 mg PO DAILY #90 tab 01/07/22 05/07/22 Rx sitagliptin 100 mg tablet 100 mg PO DAILY #90 tab 01/07/22 05/07/22 Rx Cholecalciferol (Vitamin D3) 1,000 units PO DAILY 03/06/22 05/08/22 History [Vitamin D3 1,000 Unit Cap] Duloxetine HCl [Cymbalta] 60 mg PO DAILY 03/06/22 05/07/22 History Furosemide [Furosemide 40MG tAB*] 40 mg PO DAILY 03/06/22 05/07/22 History Lidocaine [Lidocaine 5% patch] 1 patch TOPICAL DAILY 03/06/22 05/07/22 History Aspirin [Aspirin 81mg EC Tab] 81 mg PO DAILY 03/07/22 05/07/22 History Budesonide/Formoterol Fumarate 2 puff INHALATION Q12H 03/07/22 05/07/22 History [Symbicort 160-4.5 Mcg Inhaler] clonazepam 0.5 mg tablet 0.5 mg PO TID #90 tab 03/08/22 05/07/22 Rx gabapentin 600 mg tablet 600 mg PO QID #120 tab 03/08/22 05/07/22 Rx hydrocodone 7.5 mg-acetaminophen 1 tab PO Q6H #120 tab 04/30/22 05/07/22 Rx 325 mg tablet Insulin NPH Hum/Reg Insulin Hm 30 units SQ BID 05/07/22 05/07/22 History [Novolin 70/30 U-100 Insulin] Levothyroxine Sodium [Synthroid 150 mg PO
[2022-05-08 12:34] LABS: POC Glucose,Bedside 163 (70-110)
--- NOTE | 2022-05-08 12:39 | P.PN_ITS ---
Internal Medicine - PN: Subj *Date: 05/08/22 *Time: 12:40 Interval history: c/s for facial fractures fall at halfway epistaxis since resloved - on xarelto Exam Vital signs and Labs for Last 24 Hours: Temp Pulse Resp BP Pulse Ox 98.9 F 87 17 101/48 L 92 L 05/08/22 07:48 05/08/22 09:14 05/08/22 07:48 05/08/22 09:14 05/08/22 07:48 Laboratory Results - last 24 hr 05/07/22 13:11: WBC 12.0 H, RBC 4.11 L, Hgb 12.5, Hct 38.8, MCV 94.2, MCH 30.3, MCHC 32.2, RDW 17.2, Plt Count 331, MPV 8.6, Neut % (Auto) 71.1, Lymph % (Auto) 17.1, [place] % (Auto) 4.9, Eos % (Auto) 5.2, Baso % (Auto) 1.7, Neut # (Auto) 8.5 H, Lymph # (Auto) 2.1, [place] # (Auto) 0.6, Eos # (Auto) 0.6 H, Baso # (Auto) 0.2 05/07/22 13:11: Sodium 134 L, Potassium 4.6, Chloride 94 L, Carbon Dioxide 34 H, Anion Gap 10.6, BUN 39 H, Creatinine 0.90, Estimated Creat Clear 128, Estimated GFR 65, Est GFR ( Amer) 78, Glucose 159 H, Calcium 9.6, Total Bilirubin 0.4, AST 30, ALT 19, Alkaline Phosphatase 91, Total Protein 7.1, Albumin 3.8, Globulin 3.3 H, Albumin/Globulin Ratio 1.2 05/07/22 13:11: Hemoglobin A1c 9.1 H 05/07/22 13:29: SARS-CoV-2 (PCR) Not detected, Influenza A Untype (PCR) Not detected, Influenza Type B (PCR) Not detected 05/07/22 16:53: POC Glucose 128 H 05/08/22 06:09: POC Glucose 169 H 05/08/22 11:45: POC Glucose 163 H I & O for Last 24 hours: Intake & Output 05/05/22 05/06/22 05/07/22 05/08/22 23:59 23:59 23:59 23:59 Intake Total 120 / 120 0 / 0 Output Total 0 / 200 200 / 200 Balance 120 / -80 -200 / -200 Weight 116.658 kg 118.297 kg - Constitutional morbidly obese - *Routine HEENT Exam Eye: Present: EOMI Comments: right septal deviation dried blood in nares and OP no active bleeding no obvious septal hematoma no obvious external nasal bone step offs or deformities EAC clear neck soft - *Routine Neck Exam Present: supple, trachea midline - *Routine Respiratory Exam Present: accessory muscle use Comments: no inc WOB - *Routine Cardiovascular Exam Comments: defered - *Routine Abdominal Exam Comments: deferred - *Routine Rectal Exam Comments: deferred - *Routine Exam Comments: deferred - *Routine Extremities Exam Comments: deferred - *Routine Skin Exam Comments: deferred - *Routine Neurological Exam Present: alert, CN II-XII intact Assessment and Plan (1) Nasal fracture Status: Acute Qualifiers: Encounter type: initial encounter Fracture type: closed Qualified Code(s): S02.2XXA - Fracture of nasal bones, initial encounter for closed fracture Category: Medical Code(s): S02.2XXA - Fracture of nasal bones, initial encounter for closed fracture c/s nasal bone fracture and septal fracture nasal bone fractures are non displaced and require no further intervention appears to have fracture through ning aspect of septum but no obvious hematoma with resulting right septal deviation - recommend nasal saline spray to clear the old blood, ppx antibiotics to cover for sinusitis, and have f/u as an outpatient. Can consider septoplasty to address in the future but patient has more acute issues including a femor fracture that take precedent at this time. Will have her f/u in clinic in 2-3 months.
--- NOTE | 2022-05-08 13:42 | HMH.ORTHOCON ---
*Admission Date: 05/08/22 <Marina Lambert - 05/08/22 13:45> *Reason for consult:: right femur fracture <LambertMarina preston - 05/08/22 13:45> *History of present illness: Patient is a 56-year-old female admitted to the acute inpatient service late yesterday 05/07/2022 after sustaining a fall at the assisted. She is a resident of [facility] where she reports nursing aides were attempting to adjust her positioning in a wheelchair yesterday afternoon/evening, causing her to fall forward onto her face/the floor. She was brought to the [facility] emergency department via EMS where x-rays demonstrate a comminuted, displaced fracture of the right distal femur. X-ray also demonstrates nasal bone and septal fractures. Today she continues to report right leg pain. She is lying comfortably in bed and her sister is present at the bedside. She states that she has right-sided hemiparesis secondary to previous CVA and does not have much functional use of her right lower extremity at baseline. She reports that she typically mobilizes using a wheelchair, however, she states that she has been working with physical therapy in the hopes of regaining the ability to ambulate with a walker. She also has a history of previous left igufc-jwh-abez amputation performed by Dr. Gutiérrez in August 2020 secondary to gangrene and osteomyelitis; she underwent further irrigation, debridement, and secondary closure of her left BKA wound on 01/11/2021. She is a chronic smoker. Her past medical history is significant for diabetes, CVA, hypertension, hyperlipidemia, peripheral artery disease, coronary artery disease, hypothyroidism, congestive heart failure, and COPD. Her aerial erector is Dr. Contreras. She denies any chest pain, shortness of breath, palpitations, or distal tingling/numbness. She states that she has not had anything to eat or drink since yesterday evening. She is on long-term anticoagulation with Xarelto, she reports that her last dose was the morning of 05/07/2022 at the assisted prior to her fall. She denies any other symptoms or concerns at this time. <Marina Lambert - 05/08/22 14:11> [facility] History Medical History: Reports:: Anxiety, Atherosclerotic Heart Disease, Cardiomyopathy, Congestive Heart Failure, Chronic Obstructive Pulmonary Disease (COPD), Coronary Artery Disease, Cerebrovascular Accident, Depression, Diabetes Mellitus Type 2, Hyperlipidemia, Hypertension, Peripheral Artery Disease, Peripheral Vascular Disease Denies:: Cancer, Diabetes Mellitus Type 1, Internal Pacemaker, MRSA, Seizures <Marina Lambert 05/08/22 13:45> *Have you ever received a pneumonia vaccine?: Yes <Marina Lambert 05/08/22 13:45> *Have you received a flu vaccine this season?: Yes <Marina Lambert 05/08/22 13:45> Other Medical History: Reports: Cataracts, Hypothyroidism, Thyroid Disease. Denies: Blood Transfusion Reaction <Marina Lambert 05/08/22 13:45> Laterality Cases: Bilateral: Other <Marina Lambert 05/08/22 13:45> Other Surgeries: Yes: Cardiac Catheterization, Cardiac Surgery, Cholecystectomy, Colonoscopy, Coronary Stent, Thyroidectomy, Tubal Ligation, Other. No: Pacemaker <Marina Lambert 05/08/22 13:45> Amputation: Yes (LBKA) <Fausto05/08/22 13:45> Fractures: No <Fausto05/08/22 13:45> - *Social History Smoking Status: Former smoker <Marina Lambert 05/08/22 13:45> Tobacco Type: cigarettes <Marina Lambert 05/08/22 13:45> # Packs/Day (cigarettes): 1 <Fausto05/08/22 13:45> #Yrs smoked (if former smoker): 30 <Fausto05/08/22 13:45> Alcohol Intake: never <Marina Lambert 05/08/22 13:45> Alcohol Intake Frequency:: 0-2 drinks per day <Marina Lambert 05/08/22 13:45> Substance Use Type: denies use <Marina Lambert 05/08/22 13:45> *Occupational Status:: disabled <Marina Lambert 05/08/22 13:45> Housing: assisted <Marina Lambert 05/08/22 13:45> Household
--- NOTE | 2022-05-08 15:37 | DIET.NUTRFU ---
Patient continues to be NPO, RD was informed today that she is recommended to have thickened liquids at [place] and does not follow recommendations and drinks regular gaterade. Provider has indicated they have reviewed and documented risk vs benefits and patient is aware. Will continue to follow patient, when diet is appropriate will provide her the safest diet possible to prevent condition from worsting
--- NOTE | 2022-05-08 15:59 | CA_ITS ---
APPROVED REPORT EXAM: Comprehensive 2D, Doppler, and color-flow Echocardiogram Field Scout: MONICA Mahajan, RVS Ht: 5 ft 7 in Wt: 260lbs BSA: 2.26 BP: 91/54 mmHg Indications: Preop clearance, COPD, CAD, DM, OBESITY, HTN, HLD, ACUTE FEMUR FX S/P FALL Echo Enhancing Agent Comments: Extremely limited acoustic windows, patient intolerant of exam, lung impedence, extreme body habitus with supine positioning. 2D Dimensions IVSd 1.10 cm F: 0.6-1.0 LVEF (Visual) 45.00 % PWd 1.00 cm F: 0.6 - 1.0 LVDd 4.40 cm F: 3.9 - 5.3 LVDs 2.30 cm Aortic Root 3.19 cm Left Atrium 3.25 cm LVOT 1.96 cm (M/F) 1.5-2.5 LV Diastology E Decel Time 150.00 (160-240 msec) E/A Ratio 0.87 MED E' 7.20 (< 7 cm/sec) MED A' 10.20 cm/s E'/MED E' Ratio 11.50 (>14) Mitral Valve MV A Velocity 96.00 (40-130 cm/s) E/A Ratio 0.87 MV Decel. Time 150.00 (160-240 ms) MV PHT 43.00 ms Conclusion 1. Very limited exam was performed valvular structure as well as the endocardial cells are very poorly visualized. Probably preserved left ventricular systolic function 2. No significant pericardial effusion noted. 3. Valvular structures are not assessed by this study. Electronically signed by : Dg Thompson MD 05/08/2022 19:40:43
--- NOTE | 2022-05-08 16:45 | PC.WOUNDNOTE ---
Stage 2
--- NOTE | 2022-05-08 16:55 | ECG_ITS ---
APPROVED REPORT Exam: Resting ECG HR:92 bpm ECG Measurements Heart Rate 92 AXES SC 160 P 41 QRSd 91 QRS 33 QT 361 T 85 QTc 410 Conclusion SINUS RHYTHM LOW QRS VOLTAGE IN PRECORDIAL LEADS [QRS DEFLECTION < 1.0 mV IN CHEST LEADS] NONSPECIFIC T-WAVE ABNORMALITY BORDERLINE ECG UNCONFIRMED REPORT Electronically signed by : Jimenez Suárez MD 05/09/2022 16:57:11
[2022-05-08 17:47] LABS: Basophils # 0.1 K/mm3 (0-0.2); Basophils % 0.6 % (0.1-2.0); Eosinophils # 0.5 K/mm3 (0.0-0.4); Eosinophils % 3.8 % (0.1-12.0); Hemoglobin 10.4 g/dL (12.2-16.2); Lymphocytes # 2.4 K/mm3 (0.7-4.5); Lymphocytes % 20.5 % (10-50); Mean Corpuscular HGB Conc 33.6 g/dL (31.8-35.4); Mean Corpuscular Hemoglobin 30.5 pg (27.0-31.2); Mean Corpuscular Volume 90.7 fl (81-99); Mean Platelet Volume 8.2 fl (7.4-10.4); Monocytes # 0.7 K/mm3 (0.1-1.0); Monocytes % 5.5 % (1.7-9.3); Neutrophils # 8.3 K/mm3 (1.8-7.8); Neutrophils % 69.7 % (37.0-80.0); Platelet Count 282 K/mm3 (142-424); Red Blood Count 3.42 M/mm3 (4.20-5.40); Red Cell Distribution Width 16.6 % (11.5-17.5); White Blood Count 11.9 K/mm3 (4.8-10.8)
[2022-05-08 17:59] LABS: Anion Gap 11.3 mEq/L (5-15); Blood Urea Nitrogen 47 mg/dl (7-17); Calcium 8.7 mg/dl (8.4-10.2); Carbon Dioxide 31 mmol/L (22.0-30.0); Chloride 97 mmol/L (98-107); Creatinine Clearance Estimated 90 mL/min (50-200); Estimated Glomerular Filt Rate 42 ml/min (>60); GFR (African American) 51 ML/MIN (>60); Glucose 174 mg/dl (74-100); Potassium 5.3 mmoL/L (3.5-5.1); Sodium 134 mmol/L (136-145)
--- NOTE | 2022-05-08 18:24 | PC.NURSE ---
Pt alert and oriented to person and place. Have given another 500 cc bolus per mar to aid in hypotension, per Amish Duckworth APRN. BP and HR stable at this time. CB in reach. Mx continues.
--- NOTE | 2022-05-08 19:18 | PC.NURSE ---
EKG obtained and made Dr. Contreras aware, as well as made him aware of cardiology consult.
--- NOTE | 2022-05-08 20:50 | PC.NURSE ---
Abt vanc and cefazolin on jan to be given pre-op and not on floor per Dr. Weinberg.
[2022-05-08 21:58] LABS: POC Glucose,Bedside 165 (70-110)
[2022-05-09] VITALS (19 sets, daily range): BP systolic 100–143; BP diastolic 42–77; PULSE 77–95; RESP 17–20; TEMP 36.8–37.6; O2SAT 89–96; BMI 38.8
--- NOTE | 2022-05-09 04:47 | PC.NURSE ---
Pt has been resistive to care and turning and repositioning. Education provided. Reinforcement needed. Bed bath given. Pt is NPO for procedure. VSS. Medications administered per mar. Call light within reach. Family at bedside.
[2022-05-09 06:45] LABS: POC Glucose,Bedside 190 (70-110)
[2022-05-09 07:21] LABS: Chloride 100 mmol/L (98-107)
[2022-05-09 07:22] LABS: Sodium 134 mmol/L (136-145)
[2022-05-09 07:24] LABS: Basophils # 0.1 K/mm3 (0-0.2); Basophils % 0.5 % (0.1-2.0); Blood Urea Nitrogen 42 mg/dl (7-17); Creatinine Clearance Estimated 118 mL/min (50-200); Eosinophils # 0.4 K/mm3 (0.0-0.4); Eosinophils % 3.5 % (0.1-12.0); Estimated Glomerular Filt Rate 57 ml/min (>60); GFR (African American) 69 ML/MIN (>60); Hematocrit 25.9 % (37.0-47.0); Lymphocytes # 2.7 K/mm3 (0.7-4.5); Lymphocytes % 24.3 % (10-50); Mean Corpuscular HGB Conc 32.9 g/dL (31.8-35.4); Mean Corpuscular Hemoglobin 29.2 pg (27.0-31.2); Mean Corpuscular Volume 88.8 fl (81-99); Mean Platelet Volume 8.8 fl (7.4-10.4); Monocytes # 0.7 K/mm3 (0.1-1.0); Monocytes % 6.6 % (1.7-9.3); Neutrophils # 7.2 K/mm3 (1.8-7.8); Neutrophils % 64.9 % (37.0-80.0); Platelet Count 243 K/mm3 (142-424); Red Blood Count 2.92 M/mm3 (4.20-5.40); Red Cell Distribution Width 16.7 % (11.5-17.5)
[2022-05-09 07:25] LABS: Calcium 8.5 mg/dl (8.4-10.2); Carbon Dioxide 30 mmol/L (22.0-30.0); Glucose 180 mg/dl (74-100); Hemoglobin 8.6 g/dL (12.2-16.2)
--- NOTE | 2022-05-09 07:53 | HMH.ORTHPN ---
Subjective Date: 05/09/22 <FaustoMarina - 05/09/22 07:53> Time: 07:20 <Marina Lambert - 05/09/22 07:53> Principal diagnosis: right femur fracture <Marina Lambert 05/09/22 07:53> Interval history: Patient is a 56-year-old female admitted to the acute inpatient service 05/07/2022 after sustaining a fall at the care home. Evaluation in the [facility] emergency department demonstrates a comminuted, displaced fracture of the right distal femur. Today she continues to report right leg pain. She is lying comfortably in bed this morning and family is present at the bedside. She has long-term anticoagulation with Xarelto, she reports that her last dose was the morning of 05/07/2022 at the care home prior to her fall. She has been n.p.o. since midnight for anticipated surgery. She denies any other symptoms or concerns at this time. <Marina Lambert - 05/09/22 07:56> PN: Obj Ex Vital signs: Temp Pulse Resp BP Pulse Ox 98.2 F 79 18 100/55 L 95 05/09/22 16:00 05/09/22 16:00 05/09/22 16:00 05/09/22 16:00 05/09/22 16:00 <Joaquín Weinberg - 05/09/22 18:29> Temp Pulse Resp BP Pulse Ox 99.7 F H 93 H 20 108/44 L 90 L 05/09/22 04:00 05/09/22 04:00 05/09/22 04:00 05/09/22 04:00 05/09/22 06:27 <Marina Lambert - 05/09/22 07:53> - Constitutional no acute distress, obese, cooperative <Marina Lambert 05/09/22 07:56> - Routine HEENT Exam Head: Present: normocephalic <Marina Lambert 05/09/22 07:56> Eye: Present: EOMI, PERRL <Marina Lambert 05/09/22 07:56> ENT: Present: mucous membranes moist <Marina Lambert 05/09/22 07:56> - Routine Neck Exam Present: supple, full ROM, trachea midline. Absent: JVD, lymphadenopathy <Marina Lambert 05/09/22 07:56> - Routine Respiratory Exam Absent: accessory muscle use, respiratory distress <Marina Lambert 05/09/22 07:56> Comments: Symmetric chest movement, able to speak in complete sentences <Marina Lmabert 05/09/22 07:56> - Routine Cardiovascular Exam Present: RRR <Marina Lambert 05/09/22 07:56> Comments: Normal peripheral pulses <Marina Lambert 05/09/22 07:56> - Routine Abdominal Exam Present: soft. Absent: tenderness <Marina Lambert 05/09/22 07:56> - Routine Extremities Exam Comments: Upon examination of the lower extremities: There is been a prior left below the knee amputation. Upon examination of the right lower extremity: The skin is intact. No lacerations, ulcerations, wounds, or erythema noted. The distal femur is tender to palpation. Attempted movements of the right lower extremity are painful. Thigh and calf are soft nontender; Homans' sign is negative. No clinical evidence of DVT noted. Posterior tibial pulse 1+; capillary refill is brisk. Distal neurovascular status is intact. Patient has right-sided hemiparesis secondary to prior CVA; sensation to light touch is grossly intact. <Marina Lambert 05/09/22 07:57> - Routine Skin Exam Present: intact, warm, normal turgor. Absent: cyanosis, erythema, lesions, jaundice <Marina Lambert 05/09/22 07:56> - Routine Neurological Exam Present: alert, oriented X3, moving all extremities, normal tone, normal speech. Absent: sensory deficit <Marina Lambert 05/09/22 07:56> - Routine Psychiatric Exam Present: normal affect, cooperative <Marina Lambert 05/09/22 07:56> Progress Note: A&P (1) Right femoral fracture Status: Acute (2) Nasal fracture Status: Acute (3) Anxiety and depression Status: Chronic (4) S/P BKA (below knee amputation) unilateral Status: Chronic (5) Left-sided weakness Status: Chronic <Joaquín Weinberg - 05/09/22 18:29> (1) Right femoral fracture Status: Acute (2) Nasal fracture Status: Acute (3) Anxiety and depression Status: Chronic (4) S/P BKA (below knee amputation) unilateral Status: Chronic (5) Left-sided weakness Status: Chr
--- NOTE | 2022-05-09 08:51 | HMH.CNCARD ---
History of Present Illness Consult date: 05/09/22 Requesting physician: Sameer Patterson Consult reason: pre-op evaluation, hypotension Chief complaint: fall from chair, right hip fracture Additional Medical History:: Past medical hx: CAD DD Morbid obesity Left BKA Prior CVA with right sided hemiparesis DM HTN HLD PAD COPD chronic xarelto use History of present illness: Patient is a 56-year-old female with past medical hx of CVA with right sided hemiparesis, left BKA, DM, HTN, HLD, PAD, CAD, disastolic dysfunction with normal EF, and COPD was admitted to the acute inpatient service 05/07/2022 after sustaining a fall at the intermediate. Evaluation in the [facility] emergency department demonstrates a comminuted, displaced fracture of the right distal femur and nasal bone/septal fractures. patient reports she was being assisted to wheelchair by intermediate staff when fell landing on face. Denies loc. Cardiology asked to consult for hypotension and surgical clearance. Patient denies hx of chest pain or soa. Baseline functional capacity is low due to multiple medical reasons including right sided hemiparesis from CVA and left BKA. Upon exam, patient is alert, but confused at times. Nursing staff tells me this started yesterday. patient also noted to be warm to touch, temp 99. CT head negative for acute process. [facility] History Medical History: Reports:: Anxiety, Atherosclerotic Heart Disease, Cardiomyopathy, Congestive Heart Failure, Chronic Obstructive Pulmonary Disease (COPD), Coronary Artery Disease, Cerebrovascular Accident, Depression, Diabetes Mellitus Type 2, Hyperlipidemia, Hypertension, Peripheral Artery Disease, Peripheral Vascular Disease Denies:: Cancer, Diabetes Mellitus Type 1, Internal Pacemaker, MRSA, Seizures *Have you ever received a pneumonia vaccine?: Yes *Have you received a flu vaccine this season?: Yes Other Medical History: Reports: Cataracts, Hypothyroidism, Thyroid Disease. Denies: Blood Transfusion Reaction Laterality Cases: Bilateral: Other Other Surgeries: Yes: Cardiac Catheterization, Cardiac Surgery, Cholecystectomy, Colonoscopy, Coronary Stent, Thyroidectomy, Tubal Ligation, Other. No: Pacemaker Amputation: Yes (LBKA) Fractures: No - *Social History Smoking Status: Former smoker Tobacco Type: cigarettes # Packs/Day (cigarettes): 1 #Yrs smoked (if former smoker): 30 Alcohol Intake: never Alcohol Intake Frequency:: 0-2 drinks per day Substance Use Type: denies use *Occupational Status:: disabled Housing: intermediate Household Members: none *Travel in the last 8 weeks: None - Psychiatric History Pschychiatric History:: Reports:: Anxiety, Depression Family Hx:: No significant family history Meds Home Medications Medication Instructions Recorded Confirmed Type acetaminophen 500 mg tablet 1,000 mg PO Q6HP PRN #120 tab 12/11/20 05/07/22 Rx albuterol sulfate 90 mcg/actuation 2 puff INHALATION Q4HP PRN #6.7 g 01/07/22 05/07/22 Rx aerosol inhaler buspirone 15 mg tablet 15 mg PO TID #90 tab 01/07/22 05/07/22 Rx carvedilol 3.125 mg tablet 3.125 mg PO BID #120 tab 01/07/22 05/07/22 Rx lisinopril 10 mg tablet 10 mg PO DAILY #90 tab 01/07/22 05/07/22 Rx sitagliptin 100 mg tablet 100 mg PO DAILY #90 tab 01/07/22 05/07/22 Rx Cholecalciferol (Vitamin D3) 1,000 units PO DAILY 03/06/22 05/08/22 History [Vitamin D3 1,000 Unit Cap] Duloxetine HCl [Cymbalta] 60 mg PO DAILY 03/06/22 05/07/22 History Furosemide [Furosemide 40MG tAB*] 40 mg PO DAILY 03/06/22 05/07/22 History Lidocaine [Lidocaine 5% patch] 1 patch TOPICAL DAILY 03/06/22 05/07/22 History Aspirin [Aspirin 81mg EC Tab] 81 mg PO DAILY 03/07/22 05/07/22 History Budesonide/Formoterol Fumarate 2 puff INHALATION Q12H 03/07/22 05/07/22 History [Symbicort 160-4.5 Mcg Inhaler] clonazepam 0.5 mg tablet 0.5 mg PO TID #90 tab 03/08/22 05/07/22 Rx gabapentin 600 mg tablet 600 mg PO QID #120 tab 03/08/22 05/07/22 Rx hydrocodone 7.
--- NOTE | 2022-05-09 10:26 | HMH.ACPN2 ---
Internal Medicine - PN: Subj *Date: 05/09/22 *Time: 10:26 Interval history: 56-year-old female patient resting in bed quietly, she does report right lower extremity pain. She did have some soft blood pressures yesterday and received fluid boluses x2 this morning blood pressure is 1 teens over 70s and she is scheduled for surgery. Exam Vital signs and Labs for Last 24 Hours: Temp Pulse Resp BP Pulse Ox 99.0 F 87 17 100/77 L 92 L 05/09/22 08:00 05/09/22 08:00 05/09/22 08:00 05/09/22 08:00 05/09/22 08:00 Laboratory Results - last 24 hr 05/08/22 11:45: POC Glucose 163 H 05/08/22 14:50: Blood Type O Negative, Antibody Screen Negative 05/08/22 17:40: WBC 11.9 H, RBC 3.42 L, Hgb 10.4 L, Hct 31.0 L, MCV 90.7, MCH 30.5, MCHC 33.6, RDW 16.6, Plt Count 282, MPV 8.2, Neut % (Auto) 69.7, Lymph % (Auto) 20.5, [place] % (Auto) 5.5, Eos % (Auto) 3.8, Baso % (Auto) 0.6, Neut # (Auto) 8.3 H, Lymph # (Auto) 2.4, [place] # (Auto) 0.7, Eos # (Auto) 0.5 H, Baso # (Auto) 0.1 05/08/22 17:40: Sodium 134 L, Potassium 5.3 H, Chloride 97 L, Carbon Dioxide 31 H, Anion Gap 11.3, BUN 47 H, Creatinine 1.30 H D, Estimated Creat Clear 90, Estimated GFR 42 L, Est GFR ( Amer) 51 L D, Glucose 174 H, Calcium 8.7 05/08/22 21:31: POC Glucose 165 H 05/09/22 06:19: POC Glucose 190 H 05/09/22 07:10: WBC 11.0 H, RBC 2.92 L, Hgb 8.6 L D, Hct 25.9 L, MCV 88.8, MCH 29.2, MCHC 32.9, RDW 16.7, Plt Count 243, MPV 8.8, Neut % (Auto) 64.9, Lymph % (Auto) 24.3, [place] % (Auto) 6.6, Eos % (Auto) 3.5, Baso % (Auto) 0.5, Neut # (Auto) 7.2, Lymph # (Auto) 2.7, [place] # (Auto) 0.7, Eos # (Auto) 0.4, Baso # (Auto) 0.1 05/09/22 07:10: Sodium 134 L, Potassium 5.0, Chloride 100, Carbon Dioxide 30, Anion Gap 9.0, BUN 42 H, Creatinine 1.00 D, Estimated Creat Clear 118, Estimated GFR 57 L, Est GFR ( Amer) 69 D, Glucose 180 H, Calcium 8.5 I & O for Last 24 hours: Intake & Output 05/06/22 05/07/22 05/08/22 05/09/22 23:59 23:59 23:59 23:59 Intake Total 120 / 120 0 / 0 Output Total 0 / 200 500 / 750 250 / 250 Balance 120 / -80 -500 / -750 -250 / -250 Weight 257 lb 3 oz 260 lb 12.8 oz 262 lb 8 oz - Constitutional no acute distress - *Routine HEENT Exam Head: Present: normocephalic Eye: Present: EOMI ENT: Present: mucous membranes moist - *Routine Neck Exam Present: trachea midline. Absent: tracheal deviation - *Routine Respiratory Exam Present: CTA bilaterally. Absent: accessory muscle use - *Routine Cardiovascular Exam Present: RRR - *Routine Abdominal Exam Present: soft, normoactive bowel sounds. Absent: tenderness, firm - *Routine Extremities Exam Present: edema, pulses intact. Absent: cyanosis, clubbing, full ROM Comments: Right lower extremity externally rotated - *Routine Skin Exam Present: intact, dry, wounds. Absent: cyanosis, erythema Comments: Darkened area right foot outer aspect - *Routine Neurological Exam Present: alert, oriented X3 - Routine Psychiatric Exam Present: unable to assess Assessment and Plan (1) Right femoral fracture Status: Acute Qualifiers: Encounter type: initial encounter Femur location: shaft Fracture type: closed Fracture morphology: comminuted Fracture alignment: displaced Qualified Code(s): S72.351A - Displaced comminuted fracture of shaft of right femur, initial encounter for closed fracture Category: Medical Code(s): S72.91XA - Unspecified fracture of right femur, initial encounter for closed fracture (2) Nasal fracture Status: Acute Qualifiers: Encounter type: initial encounter Fracture type: closed Qualified Code(s): S02.2XXA - Fracture of nasal bones, initial encounter for closed fracture Category: Medical Code(s): S02.2XXA - Fracture of nasal bones, initial encounter for closed fracture (3) Anxiety and depression Status: Chronic Category: Medical Code(s): F41.9 - Anxiety disorder, unspecified; F32.A - Depression, unspecified (4) S/P
--- NOTE | 2022-05-09 10:32 | PC.NURSE ---
pts family was concerned, stating they think pt was confused. neuro assessment done at this time. pt is a&o to person, place, time, and situation. PERRLA. CN intact. Right side flaccid per usual r/t previous stroke.
[2022-05-09 11:55] LABS: POC Glucose,Bedside 179 (70-110)
--- NOTE | 2022-05-09 12:06 | DIET.NUTRFU ---
Spoke to [place] about diet at facility, she recently had a updated swallow study on 05/07 recommended regular thin liquids, bits size pieces, no straws and practice chin tuck throughout meals. They also indicated she will need setup assistance. Will adjust ticket accordingly.
--- NOTE | 2022-05-09 12:18 | PC.NURSE ---
rounded on patient. educated family on pain medications. family states patient son is on his was from [place] but he is currently the poa which they hoped to have transferred over to her (patients sister). dr sena at bedside explaining patient needed blood before they could do surgery. plan for surgery in the morning. ordered diet so patient could eat. npo diet placed for after midnight. patient is resting soundly at this time.
[2022-05-09 16:36] LABS: Microscopic, Urine URINE MICROSCOPIC (MICROSCOPIC)
[2022-05-09 16:41] LABS: Appearance,Urine CLEAR (Clear); Bilirubin,Urine Negative (Negative); Blood, Urine 1+ (Negative); Color,Urine YELLOW (Yellow); Glucose,Urine (UA) Negative (Negative); Ketones,Urine Negative (Negative); Leukocyte Esterase,Urine 3+ (Negative); Nitrate,Urine Negative (Negative); PH,Urine 8.5 (5.0-8.5); Protein,Urine TRACE (Negative); Urobilinogen,Urine 0.2 EU/dl (0.2)
[2022-05-09 17:39] LABS: Bacteria,Urine Trace /lpf; Mucus,Urine 2+ /lpf
--- NOTE | 2022-05-09 18:43 | PC.NURSE ---
pt has required prn pain medication today, see MAR. she has been incontinent and is voiding per richard. humidification added to 3L O2. pt remains on bed rest. surgery scheduled for in the am. NPO at midnight tonight. she is a&o. Has not had a BM today. Dressing noted on coccyx. Left BKA. pressure injury noted to right ankle. slightly edematous
[2022-05-10] VITALS (31 sets, daily range): BP systolic 103–145; BP diastolic 39–80; PULSE 74–88; RESP 14–18; TEMP 36.1–43; O2SAT 91–99; BMI 39.4
[2022-05-10 00:53] LABS: POC Glucose,Bedside 234 (70-110)
[2022-05-10 04:36] LABS: Basophils # 0.1 K/mm3 (0-0.2); Basophils % 0.7 % (0.1-2.0); Eosinophils # 0.7 K/mm3 (0.0-0.4); Eosinophils % 6.2 % (0.1-12.0); Hematocrit 32.6 % (37.0-47.0); Lymphocytes # 2.4 K/mm3 (0.7-4.5); Lymphocytes % 22.7 % (10-50); Mean Corpuscular HGB Conc 34.3 g/dL (31.8-35.4); Mean Corpuscular Hemoglobin 30.5 pg (27.0-31.2); Mean Corpuscular Volume 88.9 fl (81-99); Mean Platelet Volume 8.5 fl (7.4-10.4); Monocytes # 0.8 K/mm3 (0.1-1.0); Monocytes % 7.9 % (1.7-9.3); Neutrophils # 6.6 K/mm3 (1.8-7.8); Neutrophils % 62.5 % (37.0-80.0); Platelet Count 194 K/mm3 (142-424); Red Blood Count 3.66 M/mm3 (4.20-5.40); Red Cell Distribution Width 16.2 % (11.5-17.5); White Blood Count 10.6 K/mm3 (4.8-10.8)
--- NOTE | 2022-05-10 04:45 | PC.NURSE ---
Patient rested throughout shift. Patient tolerated transfusion of 2 units of blood this shift. Patient has been NPO since 0000 r/t planned surgery in the AM. Patient has been medicated per JAN for pain. Surgical bath performed this AM.
[2022-05-10 04:46] LABS: Hemoglobin 11.1 g/dL (12.2-16.2)
[2022-05-10 05:16] LABS: Chloride 103 mmol/L (98-107); Sodium 136 mmol/L (136-145)
[2022-05-10 05:19] LABS: Anion Gap 12.2 mEq/L (5-15); Blood Urea Nitrogen 42 mg/dl (7-17); Carbon Dioxide 27 mmol/L (22.0-30.0); Creatinine Clearance Estimated 150 mL/min (50-200); Estimated Glomerular Filt Rate 74 ml/min (>60); GFR (African American) 90 ML/MIN (>60); Glucose 155 mg/dl (74-100)
[2022-05-10 05:20] LABS: Calcium 8.8 mg/dl (8.4-10.2)
[2022-05-10 05:24] LABS: Potassium 6.2 mmoL/L (3.5-5.1)
[2022-05-10 05:58] LABS: Potassium 4.6 mmoL/L (3.5-5.1)
--- NOTE | 2022-05-10 06:43 | PC.NURSE ---
patient down to surgery @ this time.
--- NOTE | 2022-05-10 08:21 | HMH.ACPN2 ---
Internal Medicine - PN: Subj *Date: 05/10/22 *Time: 19:06 Interval history: 56-year-old female patient resting in bed quietly, she does report right lower extremity pain. She will be going to the OR this morning. Hemoglobin yesterday 8.6 she did receive 2 units of packed red blood cells this morning hemoglobin is 11.1. Patient is alert and oriented Exam Vital signs and Labs for Last 24 Hours: Temp Pulse Resp BP Pulse Ox 99.3 F 83 18 132/52 L 91 L 05/10/22 03:33 05/10/22 03:33 05/10/22 03:33 05/10/22 03:33 05/10/22 06:38 Laboratory Results - last 24 hr 05/08/22 14:50: Blood Type O Negative, Antibody Screen Negative, Crossmatch (AHG) See Detail 05/09/22 11:23: POC Glucose 179 H 05/09/22 16:30: Urine Color Yellow, Urine Appearance Clear, Urine pH 8.5, Ur Specific [place] 1.010, Urine Protein Trace, Urine Glucose (UA) Negative, Urine Ketones Negative, Urine Blood 1+, Urine Nitrate Negative, Urine Bilirubin Negative, Urine Urobilinogen 0.2, Ur Leukocyte Esterase 3+ A, Urine RBC 3-5, Urine WBC 5-10, Ur Squamous Epith Cells None, Urine Bacteria Trace, Urine Mucus 2+ 05/09/22 20:45: POC Glucose 234 H 05/10/22 04:25: WBC 10.6, RBC 3.66 L D, Hgb 11.1 L D, Hct 32.6 L, MCV 88.9, MCH 30.5, MCHC 34.3, RDW 16.2, Plt Count 194, MPV 8.5, Neut % (Auto) 62.5, Lymph % (Auto) 22.7, [place] % (Auto) 7.9, Eos % (Auto) 6.2, Baso % (Auto) 0.7, Neut # (Auto) 6.6, Lymph # (Auto) 2.4, [place] # (Auto) 0.8, Eos # (Auto) 0.7 H, Baso # (Auto) 0.1 05/10/22 04:25: Sodium 136, Potassium 6.2 H* D, Chloride 103, Carbon Dioxide 27, Anion Gap 12.2, BUN 42 H, Creatinine 0.80, Estimated Creat Clear 150, Estimated GFR 74, Est GFR ( Amer) 90 D, Glucose 155 H, Calcium 8.8 05/10/22 05:45: Potassium 4.6 D I & O for Last 24 hours: Intake & Output 05/07/22 05/08/22 05/09/22 05/10/22 23:59 23:59 23:59 23:59 Intake Total 120 / 120 0 / 0 3600 / 3600 250 / 250 Output Total 0 / 200 500 / 750 350 / 950 600 / 600 Balance 120 / -80 -500 / -750 3250 / 2650 -350 / -350 Weight 257 lb 3 oz 260 lb 12.8 oz 262 lb 5.601 oz 266 lb 8 oz Microbiology Reports for the Last 24 Hours: Microbiology 05/09/22 16:30 Urine,Catheterized Urine Culture - Preliminary - Constitutional no acute distress, morbidly obese - *Routine HEENT Exam Head: Present: normocephalic Eye: Present: EOMI ENT: Present: mucous membranes moist - *Routine Neck Exam Present: trachea midline. Absent: tracheal deviation - *Routine Respiratory Exam Present: CTA bilaterally. Absent: accessory muscle use - *Routine Cardiovascular Exam Present: RRR - *Routine Abdominal Exam Present: soft, normoactive bowel sounds. Absent: tenderness, firm - *Routine Extremities Exam Present: edema, pulses intact, amputation. Absent: cyanosis, clubbing Comments: Left BKA - *Routine Skin Exam Present: intact, dry. Absent: cyanosis, erythema - *Routine Neurological Exam Present: alert, oriented X3 - Routine Psychiatric Exam Present: normal affect, normal thought process Assessment and Plan (1) Right femoral fracture Status: Acute Qualifiers: Encounter type: initial encounter Femur location: shaft Fracture type: closed Fracture morphology: comminuted Fracture alignment: displaced Qualified Code(s): S72.351A - Displaced comminuted fracture of shaft of right femur, initial encounter for closed fracture Category: Medical Code(s): S72.91XA - Unspecified fracture of right femur, initial encounter for closed fracture (2) Nasal fracture Status: Acute Qualifiers: Encounter type: initial encounter Fracture type: closed Qualified Code(s): S02.2XXA - Fracture of nasal bones, initial encounter for closed fracture Category: Medical Code(s): S02.2XXA - Fracture of nasal bones, initial encounter for closed fracture (3) Anxiety and depression Status: Chronic Category: Medical Code(s): F41.9 - Anxiety disorder, unspecified; F32.A - Depression, unspeci
[2022-05-10 08:30] LABS: Microscopic,Cath URINE MICROSCOPIC (MICROSCOPIC)
[2022-05-10 08:32] LABS: Appearance,Urine/Cath TURBID (Clear); Blood, Urine/Cath 2+ (Negative); Color,Urine/Cath YELLOW (Yellow); Glucose,Urine/Cath (UA) Negative (Negative); Ketones,Urine/Cath Negative (Negative); Leukocyte Esterase,Cath 2+ (Negative); Nitrate,Cath POSITIVE (Negative); PH,Urine/Cath 8.5 (5.0-8.5); Protein,Urine/Cath 2+ (Negative); Specific Gravity, Urine/Cath 1.015 (1.005-1.030); Urobilinogen,Cath 0.2 EU/dl (0.2)
[2022-05-10 08:42] LABS: Bilirubin,Cath 1+ (Negative)
[2022-05-10 08:57] LABS: Bacteria,Urine/Cath 4+ /lpf; RBC,Urine/Cath Occasional # /hpf (0-3); Squamous Epithelial Ur./Cath Occasional #/hpf (0-5)
--- NOTE | 2022-05-10 10:43 | XR_ITS ---
FINAL REPORT CLINICAL HISTORY: Retrograde femoral nailing - or images 2.07 fluoro time FINDINGS: FLUORO TIME PROCEDURE: Fluoroscopy in the operating room. FINDINGS: Fluoroscopy time was provided by the radiology department for the clinical service. 160 films were obtained. Fluoroscopy exposure time: 2 minutes 7 seconds. IMPRESSION: See operative report. Reviewed, Interpreted and Dictated by Jude Vora III, MD Transcribed by Alyse Nicholson Authenticated and [facility]
--- NOTE | 2022-05-10 11:15 | P.PN_ITS ---
[facility] Anesthesia Checklist - Patient Identification Patient Identification: Arm Band, Verbal (Name & ) - Structural Data Admitted From: Inpatient Planned Operative Procedure/s: Right Femur Nail Consent for Planned Operative Procedure(s) Verified: Yes Verified Documents: Surgical Consent - NPO Status Verified Time NPO: 00:00 - Chart Verification Results Verified: CBC, BMP - Additional verifications Anesthesia Reactions: No Hx Blood Transfusions: No Blood Transfusion Reaction: No - Neurological Assessment Level of Consciousness: Disoriented - Anesthesia Plan Anesthesia Risk discussed: Yes ASA Class: III Anesthesia Type: MAC w/Spinal [facility] History I have reviewed the patient's past medical history: Yes Medical History: Reports:: Anxiety, Atherosclerotic Heart Disease, Cardiomyopathy, Congestive Heart Failure, Chronic Obstructive Pulmonary Disease (COPD), Coronary Artery Disease, Cerebrovascular Accident, Depression, Diabetes Mellitus Type 2, Hyperlipidemia, Hypertension, Peripheral Artery Disease, Peripheral Vascular Disease Denies:: Cancer, Diabetes Mellitus Type 1, Internal Pacemaker, MRSA, Seizures *Have you ever received a pneumonia vaccine?: Yes *Have you received a flu vaccine this season?: Yes Other Medical History: Reports: Cataracts, Hypothyroidism, Thyroid Disease. Denies: Blood Transfusion Reaction Anesthesia experience/problems:: none Laterality Cases: Bilateral: Other Other Surgeries: Yes: Cardiac Catheterization, Cardiac Surgery, Cholecystectomy, Colonoscopy, Coronary Stent, Thyroidectomy, Tubal Ligation, Other. No: Pacemaker Amputation: Yes (LBKA) Fractures: No - *Social History Smoking Status: Former smoker Tobacco Type: cigarettes # Packs/Day (cigarettes): 1 #Yrs smoked (if former smoker): 30 Alcohol Intake: never Alcohol Intake Frequency:: 0-2 drinks per day Substance Use Type: denies use *Occupational Status:: disabled Housing: custodial Household Members: none *Travel in the last 8 weeks: None - Psychiatric History Pschychiatric History:: Reports:: Anxiety, Depression Family Hx:: No significant family history
--- NOTE | 2022-05-10 11:16 | HMH.ANESI ---
[facility] Anesthesia Record Part I Intake, IV Amount: 1,500 Estimated blood loss (mL): 100 Urine output (mL): 150 Blood Pressure: 103/57 SaO2: 93 Pulse Rate: 84 Respiratory Rate: 14 Temperature: 97.0 F Patient is:: Drowsy, Mask O2 Stable to PACU at:: 11:10
--- NOTE | 2022-05-10 11:21 | XR_ITS ---
FINAL REPORT CLINICAL HISTORY: post op COMPARISON: May 07, 2022 FINDINGS: RIGHT FEMUR Two views were obtained. There has been interval ORIF of the comminuted distal femur fracture. The joint spaces are intact. Soft tissue air is noted. There are vascular calcifications. IMPRESSION: Postoperative with no acute bony abnormality. Soft tissue air is noted. Reviewed, Interpreted and Dictated by Jude Vora III, MD Transcribed by Alyse Nicholson Authenticated and [facility]
--- NOTE | 2022-05-10 11:35 | SUR.PHASEI ---
1135- detailed report called to Monie Boyle RN.
--- NOTE | 2022-05-10 11:37 | HMH.OPNOTE ---
Date of procedure: 05/10/22 Pre-op Diagnosis:: Closed, comminuted, displaced distal femur fracture, right Post-op Diagnosis:: Same Procedure performed:: Closed reduction and retrograde femoral nailing, RIGHT Surgeon:: Joaquín Weinberg MD Hris Administrator(s):: Marina Lambert PA-C Anesthesia: spinal (Chris Montana) Estimated blood loss (mL): 100 Clinical Note:: The patient is a 56-year-old female, who sustained a comminuted and displaced supracondylar fracture of the right femur few days ago following a mechanical fall. She has multiple medical problems including diabetes mellitus, right hemiparesis and peripheral vascular disease among others. She is a [facility] of a [facility] and is nonambulatory at baseline. She does not have any motor function in the right lower extremity. However, she is having severe pain over the distal thigh, knee joint which is aggravated with any movements of that limb. This is affecting her overall care and mental status. Following a detailed discussion regarding management options including both nonsurgical and surgical, patient and family opted for surgical remediation. Surgery was delayed as patient was on Xarelto prior to the fall and also for optimization of her overall medical condition prior to surgery. Following medical and cardiac clearance and optimization of her overall condition, patient is brought to the operating room today for surgery. Please refer to orthopedic consult and progress notes for full details. Operative findings:: Comminuted, displaced distal femur fracture extending to the supracondylar region without any intra-articular extension as noted on the preoperative imaging. The fracture is well reduced and fixed in a stable fashion with long retrograde femoral nail. Bone quality is osteoporotic. Operative note:: Following appropriate preoperative workup including medical, cardiac and anesthetic clearance, patient is brought to the operating room. A spinal anesthesia was administered by the ferryboat captain. Patient was then positioned supine on the operating table and all the bony prominences were appropriately padded. The right femur and knee joint were screened under fluoroscopy prior to the procedure to make sure the patient is positioned appropriately on the table for C arm visualization during surgery. The right lower extremity was then prepped with isopropyl alcohol followed by ChloraPrep and draped in the usual standard sterile fashion. Administration of prophylactic antibiotics was confirmed with the ferryboat captain (2 g of IV Ancef and vancomycin were administered). A preprocedure timeout was performed as per the standard hospital policy. The knee joint was slightly flexed and a triangular support placed under the thigh. An anterior incision was made over the infrapatellar area for access to the intercondylar notch. The incision was carried down sharply through skin and subcutaneous tissues. The patella tendon was identified and a limited medial parapatellar arthrotomy was then performed. The patella and patellar tendon were then slightly retracted laterally providing good access to the intercondylar notch. Moderate hemarthrosis was noted in the knee joint. The hemarthrosis was evacuated and the knee joint was thoroughly irrigated with normal saline. A guidewire was placed under fluoroscopic guidance up through the notch. Using biplane fluoroscopy, appropriate positioning of the guidewire was confirmed. The starting reamer was then utilized to penetrate the subchondral bone. The short guidewire was then exchanged for a long ball-tipped guidewire, which was then passed up through the canal. Utilizing the fracture reduction tool, the fracture was reduced satisfactorily and the guidewire was passed into the proximal fragment. It was checked under biplanar fluoroscopy as well, the fracture reduced with flexion and the alignment was noted to be acceptable. Reaming was begun starting at 9, then and sequentia
--- NOTE | 2022-05-10 11:56 | SUR.PHASEI ---
1135- xray @ . 1148- pt transported via bed to 2nd floor on 3 liters o2 per n/c per S.Tod RN & Frandy HARRELL. Patient left in care of Monie Boyle RN & Joe Rdz RN. Pt awake and talking. Stable.
--- NOTE | 2022-05-10 13:43 | HMH.PTEV ---
Physical Therapy Evaluation Rehab PT IP Evaluation Start: 05/10/22 11:22 Freq: ONCE Status: Active Protocol: Document 05/10/22 13:39 PHORJB (Rec: 05/10/22 13:43 PHORNE [id number]) Subjective/History History History 56 yowf adm to [facility] S/P fall from w/c at [facility] with resulting R femur fx, now S/P IMN. She is generally dependent for all transfers with denise lift and w/c bound prior to adm. Pt has hx of CVA with R hemiplegia and L BKA Subjective Subjective Pt reports her R leg feels sore. Rehab PT IP Eval Objective Appearance Patient Behavior Appropriate Patient Orientation Person,Place,Time Difficulty following instructions none Speech Pattern Clear Ambulation Patient Able to Ambulate No Balance Ability to Arise Unable Sitting Balance Leans or slides in chair Dynamic Sitting Balance Ability Poor Transfers Bed Transfer Ability Total/Dependent (100%) Chair Transfer Ability Total/Dependent (100%) Rehab PT IP prob,goals,plan Problems Date of Evaluation: 05/10/22 PT IP Problems Bed Mobility,Transfers Rehab Potential Rehab Potential Fair Plan PT Intervention Plan Bed Mobility,Transfers, Therapeutic Exercise PT Plan Frequency Daily Duration LOS Discharge Goals Bed Transfer Ability Maximum x 2 (75% assist) Discharge Plan PT Discharge Plan Pt is most appropriate for nsg home placement and is very close to baseline for all mobility at this time. G -code Required No Eval Complexity Eval Charge Codes 89235 - High Complexity PHYSICIAN CERTIFICATION: I certify the specified therapy services for Vicky Squires are required, authorized, and reviewed every 30 days.
--- NOTE | 2022-05-10 14:00 | HMH.OTEV ---
OT Inpatient Evaluation Rehab OT IP Evaluation Start: 05/10/22 11:22 Freq: ONCE Status: Complete Protocol: Document 05/10/22 13:51 SEJAL (Rec: 05/10/22 14:00 [id number] Rehab OT IP Assessment Subjective History 56 yowf adm to [facility] S/P fall from w/c at [facility] home resulting in a R femur fx, now S/P IMN. She is generally dependent for all transfers with denise lift and w/c bound prior to adm. Pt also reports at halfway she required assistance with all ADLs. Assist required to complete dressing and bathing. Feeding task required set up. Pt has hx of CVA with R hemiplegia and L BKA. Subjective My leg is sore, I fell. Pt resting in bed. Pt required max verbal cues to engage in therapy evaluation. Pt completed bed mobility and went from supine to sitting at eob with dependent assist. Pt sat at eob with max assist x 2 to maintain static sitting balance. Pt was only able to tolerate sititng at eob for ~3 minutes prior to requesting to lay back down. Dependent assist required to go from sitting to supine. Pt was left with call archer and all other needs in reach. Objective Patient Orientation Person,Birthday Upper Extremity Gross ROM Min Limitation <25% Shoulder ROM Limitations Muscle Weakness Elbow ROM Limitations Muscle Weakness Wrist Limitations of Range of Motion Muscle Weakness Bed Mobility bed mobility-scooting,bed mobility - supine/sit,bed mobility - rolling Assist Level Total/Dependent (100%) Rehab OT IP prob,goals,plan Problems Date of Evaluation: 05/10/22 OT IP Problems Bed Mobility,Transfers,Gait, Balance,Self care,Safety Rehab Potential Rehab Potential Good Equipment Needs Assistive Devices Wheelchair Plan OT intervention Plan Bed Mobility,Transfers,Balance
--- NOTE | 2022-05-10 16:44 | PC.NURSE ---
AOX4, ABLE TO MAKE NEEDS KNOWN TO STAFF, WAS SLIGHTLY HYPOTENSIVE WHEN SHE ARRIVED FROM SURGERY BUT HAS SINCE RESOLVED. REQUIRING 3LNC FOR O2 SUPPORT. HAS C/O PAIN AND WAS MEDICATED PER MAR WITH GOOD EFFECTIVENESS, TOLERATING DIET WELL. SULTANA STILL IN PLACE TO BE REMOVED POST OP DAY 1 PER PROTOCOL. NO NEEDS VOICED TO STAFF AT THIS TIME.
[2022-05-10 16:58] LABS: POC Glucose,Bedside 193 (70-110)
[2022-05-10 16:58] LABS: POC Glucose,Bedside 151 (70-110)
--- NOTE | 2022-05-10 17:22 | PC.NURSE ---
patient has been provided with a new ice pitcher and trash has been taken out
[2022-05-11] VITALS (7 sets, daily range): BP systolic 105–136; BP diastolic 41–65; PULSE 77–91; RESP 16–18; TEMP 36.7–37.2; O2SAT 91–96; BMI 40.6
--- NOTE | 2022-05-11 04:37 | PC.NURSE ---
Patient rested intermittently throughout shift. Medicated patient for pain per mar. Patient has been q 2 turn and when requested. Nix cath in place. Patient sating above 90% on 3L NC. Surgical dressing around rt knee CDI.
[2022-05-11 06:14] LABS: POC Glucose,Bedside 162 (70-110)
[2022-05-11 08:12] LABS: Alanine Aminotransferase 9 U/L (12-78); Albumin Level 2.8 g/dl (3.5-5.0); Alkaline Phosphatase 68 U/L (38-126); Aspartate Amino Transferase 16 U/L (14-36); Blood Urea Nitrogen 25 mg/dl (7-17); Calcium 8.4 mg/dl (8.4-10.2); Carbon Dioxide 31 mmol/L (22.0-30.0); Chloride 102 mmol/L (98-107); Creatinine Clearance Estimated 91 mL/min (50-200); Estimated Glomerular Filt Rate 87 ml/min (>60); GFR (African American) 105 ML/MIN (>60); Globulin 2.9 g/dL (1.3-3.2); Glucose 130 mg/dl (74-100); Sodium 136 mmol/L (136-145); Total Protein,Serum 5.7 g/dl (6.3-8.2)
[2022-05-11 08:15] LABS: Bilirubin,Total < 0.1 mg/dl (0.2-1.3)
[2022-05-11 08:22] LABS: Basophils # 0.1 K/mm3 (0-0.2); Basophils % 1.2 % (0.1-2.0); Eosinophils # 0.8 K/mm3 (0.0-0.4); Eosinophils % 8.5 % (0.1-12.0); Hematocrit 29.4 % (37.0-47.0); Lymphocytes # 2.3 K/mm3 (0.7-4.5); Lymphocytes % 25.1 % (10-50); Mean Corpuscular HGB Conc 30.8 g/dL (31.8-35.4); Mean Corpuscular Hemoglobin 29.5 pg (27.0-31.2); Mean Corpuscular Volume 95.9 fl (81-99); Mean Platelet Volume 9.8 fl (7.4-10.4); Monocytes # 0.6 K/mm3 (0.1-1.0); Monocytes % 6.4 % (1.7-9.3); Neutrophils # 5.3 K/mm3 (1.8-7.8); Neutrophils % 58.9 % (37.0-80.0); Platelet Count 238 K/mm3 (142-424); Red Blood Count 3.07 M/mm3 (4.20-5.40); Red Cell Distribution Width 17.1 % (11.5-17.5)
--- NOTE | 2022-05-11 09:50 | HMH.ACPN2 ---
Internal Medicine - PN: Subj *Date: 05/12/22 *Time: 04:58 Interval history: resting with stable vs after recent surg - labs ok and has gram neg rods - urine culture Exam Vital signs and Labs for Last 24 Hours: Temp Pulse Resp BP Pulse Ox 98.8 F 88 18 135/65 96 05/11/22 08:00 05/11/22 08:00 05/11/22 08:00 05/11/22 08:00 05/11/22 08:00 Laboratory Results - last 24 hr 05/10/22 05:36: POC Glucose 151 H 05/10/22 16:50: POC Glucose 193 H 05/11/22 05:59: POC Glucose 162 H 05/11/22 07:27: WBC 9.0, RBC 3.07 L, Hgb 9.0 L, Hct 29.4 L, MCV 95.9, MCH 29.5, MCHC 30.8 L, RDW 17.1, Plt Count 238, MPV 9.8, Neut % (Auto) 58.9, Lymph % (Auto) 25.1, [place] % (Auto) 6.4, Eos % (Auto) 8.5, Baso % (Auto) 1.2, Neut # (Auto) 5.3, Lymph # (Auto) 2.3, [place] # (Auto) 0.6, Eos # (Auto) 0.8 H, Baso # (Auto) 0.1 05/11/22 07:27: Sodium 136, Potassium 4.0, Chloride 102, Carbon Dioxide 31 H, Anion Gap 7.0, BUN 25 H D, Creatinine 0.70, Estimated Creat Clear 91, Estimated GFR 87, Est GFR ( Amer) 105, Glucose 130 H, Calcium 8.4, Total Bilirubin < 0.1 L, AST 16, ALT 9 L, Alkaline Phosphatase 68, Total Protein 5.7 L, Albumin 2.8 L, Globulin 2.9, Albumin/Globulin Ratio 1.0 L I & O for Last 24 hours: Intake & Output 05/08/22 05/09/22 05/10/22 05/11/22 11:59 11:59 11:59 11:59 Intake Total 120 / 120 5350 / 5350 367 / 367 Output Total 200 / 200 550 / 550 700 / 700 2100 / 2100 Balance -80 / -80 -550 / -550 4650 / 4650 -1733 / -1733 Weight 260 lb 12.8 oz 262 lb 8 oz 266 lb 8 oz 274 lb 3.2 oz Microbiology Reports for the Last 24 Hours: Microbiology 05/10/22 08:10 Urine,Catheterized Urine Culture - Preliminary NO GROWTH AFTER 24 HOURS 05/09/22 16:30 Urine,Catheterized Urine Culture - Preliminary - Constitutional no acute distress - *Routine HEENT Exam Head: Present: normocephalic Eye: Present: EOMI, PERRL ENT: Present: mucous membranes dry - *Routine Neck Exam Absent: JVD - *Routine Respiratory Exam Present: decreased breath sounds - *Routine Cardiovascular Exam Present: RRR, murmur - *Routine Abdominal Exam Present: soft - *Routine Extremities Exam Absent: calf tenderness - *Routine Skin Exam Present: intact - *Routine Neurological Exam Present: alert, CN II-XII intact - Routine Psychiatric Exam Present: unable to assess Assessment and Plan (1) Right femoral fracture Status: Acute Qualifiers: Encounter type: initial encounter Femur location: shaft Fracture type: closed Fracture morphology: comminuted Fracture alignment: displaced Qualified Code(s): S72.351A - Displaced comminuted fracture of shaft of right femur, initial encounter for closed fracture Category: Medical Code(s): S72.91XA - Unspecified fracture of right femur, initial encounter for closed fracture (2) Nasal fracture Status: Acute Qualifiers: Encounter type: initial encounter Fracture type: closed Qualified Code(s): S02.2XXA - Fracture of nasal bones, initial encounter for closed fracture Category: Medical Code(s): S02.2XXA - Fracture of nasal bones, initial encounter for closed fracture (3) Anxiety and depression Status: Chronic Category: Medical Code(s): F41.9 - Anxiety disorder, unspecified; F32.A - Depression, unspecified (4) S/P BKA (below knee amputation) unilateral Status: Chronic Category: Surgical Code(s): Z89.519 - Acquired absence of unspecified leg below knee (5) Left-sided weakness Status: Chronic Category: Medical Code(s): R53.1 - Weakness (6) CVA (cerebral vascular accident) Status: Acute Category: Medical Code(s): I63.9 - Cerebral infarction, unspecified (7) UTI (urinary tract infection) Status: Acute Qualifiers: Urinary tract infection type: site unspecified Hematuria presence: without hematuria Qualified Code(s): N39.0 - Urinary tract infection, site not specified Category: Medical Code(s): N39
--- NOTE | 2022-05-11 10:20 | HMH.ORTHPN ---
Subjective Date: 05/11/22 Time: 10:20 Principal diagnosis: right femur fracture Interval history: Resting comfortable. Pain tolerable. No adverse events overnight. PN: Obj Ex Vital signs: Temp Pulse Resp BP Pulse Ox 98.8 F 88 18 135/65 96 05/11/22 08:00 05/11/22 08:00 05/11/22 08:00 05/11/22 08:00 05/11/22 08:00 - Constitutional no acute distress - Routine HEENT Exam Head: Present: normocephalic, atraumatic - Routine Neck Exam Present: supple - Routine Respiratory Exam Absent: accessory muscle use - Routine Cardiovascular Exam Present: RRR - Routine Abdominal Exam Present: soft. Absent: distended - Detailed Lower Extremity Exam Hip: Right wound hip (Dressing c/d/i. Toes warm / well perfused.) - Urinary Catheter Management Nix Cath placed during this visit: no Progress Note: A&P (1) Right femoral fracture Status: Acute Assessment and plan: 56 year old female with multiple medical comorbidities s/p retrograde intramedullary nail fixation right distal femoral shaft fracture by Dr. Weinberg 05/10/22. WBATRLE PT/OT for transfers. 23h antibiotics. DVT prophylaxis. Medical management per primary. Plan for follow up in ortho clinic 2 weeks for wound check / repeat radiographs. (2) Nasal fracture Status: Acute (3) Anxiety and depression Status: Chronic (4) S/P BKA (below knee amputation) unilateral Status: Chronic (5) Left-sided weakness Status: Chronic (6) CVA (cerebral vascular accident) Status: Acute (7) UTI (urinary tract infection) Status: Acute
[2022-05-11 12:03] LABS: POC Glucose,Bedside 152 (70-110)
[2022-05-11 16:23] LABS: POC Glucose,Bedside 207 (70-110)
--- NOTE | 2022-05-11 17:41 | PC.NURSE ---
PT IS AOX4, ABLE TO MAKE NEEDS KNOWN TO STAFF, Q2 TURN. TOLERATING DIET WELL. SULTANA CATH REMOVED. STILL REQUIRES 3LNC FOR O2 SUPPORT. DSG C/D/I. NO NEEDS VOICED TO STAFF AT THIS TIME.
[2022-05-11 19:40] LABS: POC Glucose,Bedside 173 (70-110)
[2022-05-11 21:30] LABS: POC Glucose,Bedside 243 (70-110)
[2022-05-12] VITALS (7 sets, daily range): BP systolic 107–142; BP diastolic 52–76; PULSE 71–82; RESP 17–18; TEMP 36.8–38.1; O2SAT 90–95; BMI 39.9
--- NOTE | 2022-05-12 03:38 | PC.NURSE ---
Addendum entered by Kylee Barriga RN 05/12/22 03:50: Patient did have temp of 100.6 around 0000 medicated per mar. Original Note: Patient rested intermittently throughout shift. Medicated patient for pain per mar. Patient has been q 2 turn and when requested. Patient sating above 90% on 3L NC. Surgical dressing around rt knee and rt hip CDI.
--- NOTE | 2022-05-12 08:14 | HMH.ORTHPN ---
Subjective Date: 05/12/22 Time: 08:14 Principal diagnosis: right femur fracture Interval history: Resting comfortably. Per patient, family and social work investigating different living arrangements. PN: Obj Ex Vital signs: Temp Pulse Resp BP Pulse Ox 98.7 F 71 18 116/52 L 94 L 05/12/22 04:00 05/12/22 04:00 05/12/22 04:00 05/12/22 04:00 05/12/22 04:00 - Constitutional no acute distress - Routine HEENT Exam Head: Present: normocephalic, atraumatic Eye: Present: EOMI - Routine Neck Exam Present: supple - Routine Respiratory Exam Absent: accessory muscle use - Routine Cardiovascular Exam Present: RRR - Routine Abdominal Exam Present: soft. Absent: distended - Detailed Lower Extremity Exam Upper leg: Left: wound (Dressing c/d/i. Toes WWP. Limited motor function at baseline.) - Urinary Catheter Management Nix Cath placed during this visit: no Progress Note: A&P (1) Right femoral fracture Status: Acute (2) Nasal fracture Status: Acute (3) Anxiety and depression Status: Chronic (4) S/P BKA (below knee amputation) unilateral Status: Chronic (5) Left-sided weakness Status: Chronic (6) CVA (cerebral vascular accident) Status: Acute (7) UTI (urinary tract infection) Status: Acute Assessment and Plan for All Diagnoses:: 56 year old female with multiple medical comorbidities s/p retrograde intramedullary nail fixation right distal femoral shaft fracture by Dr. Weinberg 05/10/22. WBATRLE PT/OT for transfers. 23h antibiotics. DVT prophylaxis. Medical management per primary. Plan for follow up in ortho clinic 2 weeks for wound check / repeat radiographs.
[2022-05-12 08:27] LABS: Basophils # 0.2 K/mm3 (0-0.2); Basophils % 1.7 % (0.1-2.0); Eosinophils # 0.8 K/mm3 (0.0-0.4); Eosinophils % 9.8 % (0.1-12.0); Hemoglobin 9.5 g/dL (12.2-16.2); Lymphocytes # 2.2 K/mm3 (0.7-4.5); Lymphocytes % 25.9 % (10-50); Mean Corpuscular HGB Conc 30.5 g/dL (31.8-35.4); Mean Corpuscular Hemoglobin 29.3 pg (27.0-31.2); Mean Corpuscular Volume 95.9 fl (81-99); Mean Platelet Volume 9.9 fl (7.4-10.4); Monocytes # 0.7 K/mm3 (0.1-1.0); Monocytes % 7.9 % (1.7-9.3); Neutrophils # 4.7 K/mm3 (1.8-7.8); Neutrophils % 54.7 % (37.0-80.0); Platelet Count 263 K/mm3 (142-424); Red Blood Count 3.23 M/mm3 (4.20-5.40); White Blood Count 8.5 K/mm3 (4.8-10.8)
[2022-05-12 08:32] LABS: Anion Gap 7.8 mEq/L (5-15); Blood Urea Nitrogen 22 mg/dl (7-17); Calcium 8.7 mg/dl (8.4-10.2); Carbon Dioxide 32 mmol/L (22.0-30.0); Chloride 101 mmol/L (98-107); Creatinine Clearance Estimated 202 mL/min (50-200); Estimated Glomerular Filt Rate 103 ml/min (>60); GFR (African American) 125 ML/MIN (>60); Glucose 140 mg/dl (74-100); Potassium 3.8 mmoL/L (3.5-5.1); Sodium 137 mmol/L (136-145)
--- NOTE | 2022-05-12 11:04 | HMH.ACPN2 ---
Internal Medicine - PN: Subj *Date: 05/13/22 *Time: 08:05 Interval history: more alert- has pain - Exam Vital signs and Labs for Last 24 Hours: Temp Pulse Resp BP Pulse Ox 98.2 F 82 18 126/63 92 L 05/12/22 08:00 05/12/22 08:00 05/12/22 08:00 05/12/22 08:00 05/12/22 08:22 Laboratory Results - last 24 hr 05/09/22 16:30: Urine Color Yellow, Urine Appearance Clear, Urine pH 8.5, Ur Specific [place] 1.010, Urine Protein Trace, Urine Glucose (UA) Negative, Urine Ketones Negative, Urine Blood 1+, Urine Nitrate Negative, Urine Bilirubin Negative, Urine Urobilinogen 0.2, Ur Leukocyte Esterase 3+ A, Urine RBC 3-5, Urine WBC 5-10, Ur Squamous Epith Cells None, Urine Bacteria Trace, Urine Mucus 2+ 05/10/22 20:34: POC Glucose 173 H 05/11/22 11:50: POC Glucose 152 H 05/11/22 16:06: POC Glucose 207 H 05/11/22 21:16: POC Glucose 243 H 05/12/22 07:36: WBC 8.5, RBC 3.23 L, Hgb 9.5 L, Hct 31.0 L, MCV 95.9, MCH 29.3, MCHC 30.5 L, RDW 17.0, Plt Count 263, MPV 9.9, Neut % (Auto) 54.7, Lymph % (Auto) 25.9, [place] % (Auto) 7.9, Eos % (Auto) 9.8, Baso % (Auto) 1.7, Neut # (Auto) 4.7, Lymph # (Auto) 2.2, [place] # (Auto) 0.7, Eos # (Auto) 0.8 H, Baso # (Auto) 0.2 05/12/22 07:36: Sodium 137, Potassium 3.8, Chloride 101, Carbon Dioxide 32 H, Anion Gap 7.8, BUN 22 H, Creatinine 0.60, Estimated Creat Clear 202, Estimated GFR 103, Est GFR ( Amer) 125, Glucose 140 H, Calcium 8.7 I & O for Last 24 hours: Intake & Output 05/09/22 05/10/22 05/11/2205/12/22 11:59 11:59 11:59 11:59 Intake Total 5350 / 5350 367 / 367 2285 / 2285 Output Total 550 / 550 700 / 700 2099 / 2099 Balance -550 / -550 4650 / 4650 -1733 / -1733 285 / 285 Weight 262 lb 8 oz 266 lb 8 oz 274 lb 3.2 oz 270 lb Microbiology Reports for the Last 24 Hours: Microbiology 05/09/22 16:30 Urine,Catheterized Urine Culture - Preliminary Gram Negative Rods 05/10/22 08:10 Urine,Catheterized Urine Culture - Preliminary - Constitutional no acute distress, obese - *Routine HEENT Exam Head: Present: normocephalic Eye: Present: EOMI, PERRL ENT: Present: mucous membranes dry - *Routine Neck Exam Absent: JVD - *Routine Respiratory Exam Present: decreased breath sounds - *Routine Cardiovascular Exam Present: RRR, murmur - *Routine Abdominal Exam Present: soft - *Routine Extremities Exam Absent: calf tenderness - *Routine Skin Exam Present: intact - *Routine Neurological Exam Present: alert, CN II-XII intact - Routine Psychiatric Exam Present: cooperative Assessment and Plan (1) Right femoral fracture Status: Acute Qualifiers: Encounter type: initial encounter Femur location: shaft Fracture type: closed Fracture morphology: comminuted Fracture alignment: displaced Qualified Code(s): S72.351A - Displaced comminuted fracture of shaft of right femur, initial encounter for closed fracture Category: Medical Code(s): S72.91XA - Unspecified fracture of right femur, initial encounter for closed fracture (2) Nasal fracture Status: Acute Qualifiers: Encounter type: initial encounter Fracture type: closed Qualified Code(s): S02.2XXA - Fracture of nasal bones, initial encounter for closed fracture Category: Medical Code(s): S02.2XXA - Fracture of nasal bones, initial encounter for closed fracture (3) Anxiety and depression Status: Chronic Category: Medical Code(s): F41.9 - Anxiety disorder, unspecified; F32.A - Depression, unspecified (4) S/P BKA (below knee amputation) unilateral Status: Chronic Category: Surgical Code(s): Z89.519 - Acquired absence of unspecified leg below knee (5) Left-sided weakness Status: Chronic Category: Medical Code(s): R53.1 - Weakness (6) CVA (cerebral vascular accident) Status: Acute Category: Medical Code(s): I63.9 - Cerebral infarction, unspecified (7) UTI (urinary tract infection) Status: Acute Qualif
[2022-05-12 11:39] LABS: POC Glucose,Bedside 156 (70-110)
[2022-05-12 11:39] LABS: POC Glucose,Bedside 228 (70-110)
[2022-05-12 16:37] LABS: POC Glucose,Bedside 174 (70-110)
--- NOTE | 2022-05-12 18:06 | PC.NURSE ---
pt had r hip and leg pain t/o shift, ice pack and prescribed pain medication has relieved pain. dsg CDI to R leg. dsg cdi to coccyx for redness/pressure, changed today per pt request. blood blister to bottom of pts R foot. patent peripheral 20g iv in L AC SL. purewick in place with clear yellow urine. turn/reposition q 2 hrs with no concerns. O2 @ 3 L via NC. family has been at bedside most of day. no other questions or concerns at this time.
[2022-05-12 21:11] LABS: POC Glucose,Bedside 232 (70-110)
[2022-05-13 04:00] VITALS: BP 108/48; PULSE 72; RESP 17; TEMP 36.9; O2SAT 92
[2022-05-13 05:00] VITALS: BMI 39.9
[2022-05-13 05:57] LABS: POC Glucose,Bedside 245 (70-110)
--- NOTE | 2022-05-13 06:06 | PC.NURSE ---
pt rested well this shift, pt VSS, pt c/o pain once at beginning of shift relieved with prn pain medication, dressing on RLE CDI, pt has purewick in place with adequate UOP,
[2022-05-13 06:22] LABS: Basophils # 0.1 K/mm3 (0-0.2); Basophils % 1.1 % (0.1-2.0); Eosinophils # 0.8 K/mm3 (0.0-0.4); Hemoglobin 8.6 g/dL (12.2-16.2); Lymphocytes # 1.8 K/mm3 (0.7-4.5); Lymphocytes % 25.3 % (10-50); Mean Corpuscular Hemoglobin 29.7 pg (27.0-31.2); Mean Corpuscular Volume 98.8 fl (81-99); Mean Platelet Volume 10.2 fl (7.4-10.4); Monocytes # 0.6 K/mm3 (0.1-1.0); Monocytes % 8.7 % (1.7-9.3); Neutrophils # 3.8 K/mm3 (1.8-7.8); Neutrophils % 53.9 % (37.0-80.0); Platelet Count 294 K/mm3 (142-424); Red Cell Distribution Width 17.1 % (11.5-17.5)
[2022-05-13 06:25] LABS: Hematocrit 28.7 % (37.0-47.0)
[2022-05-13 06:26] LABS: Anion Gap 9.3 mEq/L (5-15); Blood Urea Nitrogen 24 mg/dl (7-17); Carbon Dioxide 32 mmol/L (22.0-30.0); Chloride 101 mmol/L (98-107); Potassium 4.3 mmoL/L (3.5-5.1); Sodium 138 mmol/L (136-145)
[2022-05-13 06:27] LABS: Calcium 8.4 mg/dl (8.4-10.2); Creatinine Clearance Estimated 202 mL/min (50-200); Estimated Glomerular Filt Rate 103 ml/min (>60); GFR (African American) 125 ML/MIN (>60); Glucose 214 mg/dl (74-100)
[2022-05-13 07:58] VITALS: BP 115/63; PULSE 66; RESP 18; TEMP 37.5; O2SAT 97
[2022-05-13 08:00] VITALS: PULSE 66; O2SAT 97
--- NOTE | 2022-05-13 09:28 | HMH.ACPN2 ---
Internal Medicine - PN: Subj *Date: 05/14/22 *Time: 06:47 Interval history: doing better -still with pain Exam Vital signs and Labs for Last 24 Hours: Temp Pulse Resp BP Pulse Ox 99.5 F 66 18 115/63 97 05/13/22 07:58 05/13/22 07:58 05/13/22 07:58 05/13/22 07:58 05/13/22 07:58 Laboratory Results - last 24 hr 05/10/22 08:10: Urine Color Yellow, Urine Appearance Turbid, Urine pH 8.5, Ur Specific [place] 1.015, Urine Protein 2+, Urine Glucose (UA) Negative, Urine Ketones Negative, Urine Blood 2+, Urine Nitrate Positive, Urine Bilirubin 1+ A, Urine Urobilinogen 0.2, Ur Leukocyte Esterase 2+ A, Urine RBC Occasional, Urine WBC 5-10, Ur Squamous Epith Cells Occasional, Urine Bacteria 4+ A 05/12/22 06:27: POC Glucose 156 H 05/12/22 11:15: POC Glucose 228 H 05/12/22 16:27: POC Glucose 174 H 05/12/22 21:04: POC Glucose 232 H 05/13/22 05:27: POC Glucose 245 H 05/13/22 05:40: WBC 7.0, RBC 2.90 L, Hgb 8.6 L, Hct 28.7 L, MCV 98.8, MCH 29.7, MCHC 30.0 L, RDW 17.1, Plt Count 294, MPV 10.2, Neut % (Auto) 53.9, Lymph % (Auto) 25.3, [place] % (Auto) 8.7, Eos % (Auto) 11.0, Baso % (Auto) 1.1, Neut # (Auto) 3.8, Lymph # (Auto) 1.8, [place] # (Auto) 0.6, Eos # (Auto) 0.8 H, Baso # (Auto) 0.1 05/13/22 05:40: Sodium 138, Potassium 4.3, Chloride 101, Carbon Dioxide 32 H, Anion Gap 9.3, BUN 24 H, Creatinine 0.60, Estimated Creat Clear 202, Estimated GFR 103, Est GFR ( Amer) 125, Glucose 214 H D, Calcium 8.4 I & O for Last 24 hours: Intake & Output 05/10/22 05/11/22 05/12/22 05/13/22 11:59 11:59 11:59 11:59 Intake Total 5350 / 5350 367 / 367 2585 / 2585 1200 / 1200 Output Total 700 / 700 2100 / 2100 1999 / 1999 1000 / 1000 Balance 4650 / 4650 -1733 / -1733 585 / 585 200 / 200 Weight 266 lb 8 oz 274 lb 3.2 oz 270 lb 270 lb Microbiology Reports for the Last 24 Hours: Microbiology 05/09/22 16:30 Urine,Catheterized Urine Culture - Preliminary Proteus mirabilis Gram Negative Rods 05/10/22 08:10 Urine,Catheterized Urine Culture - Preliminary Proteus mirabilis Gram Negative Rods - Constitutional no acute distress, obese - *Routine HEENT Exam Head: Present: normocephalic Eye: Present: EOMI, PERRL ENT: Present: mucous membranes dry - *Routine Neck Exam Absent: JVD - *Routine Respiratory Exam Present: decreased breath sounds - *Routine Cardiovascular Exam Present: RRR, murmur - *Routine Abdominal Exam Present: soft - *Routine Extremities Exam Absent: calf tenderness - *Routine Skin Exam Present: intact - *Routine Neurological Exam Present: alert, CN II-XII intact - Routine Psychiatric Exam Present: cooperative Assessment and Plan (1) Right femoral fracture Status: Acute Qualifiers: Encounter type: initial encounter Femur location: shaft Fracture type: closed Fracture morphology: comminuted Fracture alignment: displaced Qualified Code(s): S72.351A - Displaced comminuted fracture of shaft of right femur, initial encounter for closed fracture Category: Medical Code(s): S72.91XA - Unspecified fracture of right femur, initial encounter for closed fracture (2) Nasal fracture Status: Acute Qualifiers: Encounter type: initial encounter Fracture type: closed Qualified Code(s): S02.2XXA - Fracture of nasal bones, initial encounter for closed fracture Category: Medical Code(s): S02.2XXA - Fracture of nasal bones, initial encounter for closed fracture (3) Anxiety and depression Status: Chronic Category: Medical Code(s): F41.9 - Anxiety disorder, unspecified; F32.A - Depression, unspecified (4) S/P BKA (below knee amputation) unilateral Status: Chronic Category: Surgical Code(s): Z89.519 - Acquired absence of unspecified leg below knee (5) Left-sided weakness Status: Chronic Category: Medical Code(s): R53.1 - Weakness (6) CVA (
[2022-05-13 12:11] LABS: POC Glucose,Bedside 203 (70-110)
[2022-05-13 16:00] VITALS: BP 144/70; PULSE 81; RESP 20; TEMP 36.7; O2SAT 92
--- NOTE | 2022-05-13 17:20 | PC.NURSE ---
Pt has slept off and on this shift. pt was offered to be sat up in bed, blinds open and or lights on. pt refused all of the above. nad noted. pt has scattered wheezes noted, bowel sounds are active. pt states that she has not had a bm in a week will address with MD in am. pt is able to use controls on remote and bed easily. dressing intact on r hip.
[2022-05-13 17:45] LABS: POC Glucose,Bedside 198 (70-110)
[2022-05-13 19:11] VITALS: O2SAT 98
[2022-05-13 20:00] VITALS: BP 155/73; PULSE 76; RESP 20; TEMP 36.4; O2SAT 94
[2022-05-13 20:24] LABS: POC Glucose,Bedside 174 (70-110)
--- NOTE | 2022-05-13 21:21 | CARE MANAGER ---
LATE ENTRY: Nurse called and asked this case resolution specialist to come and talk to patient and her family regarding post-discharge plans, patient and family both state they do no wish for her to return to [facility]. I did explain that other placement may be hard to find but I would try thus information was faxed to [facility] as the family and patient would like to stay local.
[2022-05-14] VITALS (7 sets, daily range): BP systolic 109–127; BP diastolic 47–70; PULSE 74–85; RESP 16–21; TEMP 36.6–37.3; O2SAT 81–95; BMI 39.9
--- NOTE | 2022-05-14 06:25 | PC.NURSE ---
pt rested throughout shift, pt given bath earlier in shift and changed sheets, pt has purewick in place putting out adequate UOP, pt c/o pain twice this shift relieved with prn pain medication, pt's vss, emv 15, eating and drinking appropriately, pt on room air throughout shift, dressing on RLE CDI
[2022-05-14 07:26] LABS: Anion Gap 7.7 mEq/L (5-15); Blood Urea Nitrogen 17 mg/dl (7-17); Calcium 8.8 mg/dl (8.4-10.2); Carbon Dioxide 34 mmol/L (22.0-30.0); Chloride 98 mmol/L (98-107); Creatinine Clearance Estimated 242 mL/min (50-200); Estimated Glomerular Filt Rate 128 ml/min (>60); GFR (African American) 154 ML/MIN (>60); Glucose 125 mg/dl (74-100); Potassium 3.7 mmoL/L (3.5-5.1); Sodium 136 mmol/L (136-145)
[2022-05-14 07:37] LABS: Basophils # 0.1 K/mm3 (0-0.2); Basophils % 0.9 % (0.1-2.0); Eosinophils # 0.6 K/mm3 (0.0-0.4); Eosinophils % 7.3 % (0.1-12.0); Hematocrit 27.2 % (37.0-47.0); Hemoglobin 9.2 g/dL (12.2-16.2); Lymphocytes # 2.1 K/mm3 (0.7-4.5); Lymphocytes % 25.8 % (10-50); Mean Corpuscular HGB Conc 33.8 g/dL (31.8-35.4); Mean Corpuscular Hemoglobin 29.6 pg (27.0-31.2); Mean Corpuscular Volume 87.5 fl (81-99); Mean Platelet Volume 8.7 fl (7.4-10.4); Monocytes # 0.7 K/mm3 (0.1-1.0); Monocytes % 8.9 % (1.7-9.3); Neutrophils # 4.7 K/mm3 (1.8-7.8); Platelet Count 354 K/mm3 (142-424); Red Blood Count 3.11 M/mm3 (4.20-5.40); Red Cell Distribution Width 16.1 % (11.5-17.5); White Blood Count 8.3 K/mm3 (4.8-10.8)
--- NOTE | 2022-05-14 09:05 | HMH.ORTHPN ---
Subjective Date: 05/14/22 Time: 08:45 Principal diagnosis: right femur fracture Interval history: Patient is a 56-year-old female who underwent an uneventful right closed reduction and retrograde femoral nailing performed by Dr. Weinberg on 05/10/2022. Today the patient is postop day #4. This morning the patient is sitting up comfortably in bed. She states that she is having some right leg pain as to be expected but that it is well controlled with rest and as needed pain medication. She reports that she has been able to rest over the weekend and denies any particular concerns at this time. She states that she is eating and drinking well and denies any episodes of nausea or vomiting. No history of fevers, chills, rigors, or distal tingling/numbness. She states that she has begun physical therapy and that this is going well. She denies any other symptoms or concerns at this time. PN: Obj Ex Vital signs: Temp Pulse Resp BP Pulse Ox 98.2 F 85 18 109/47 L 91 L 05/14/22 08:00 05/14/22 08:00 05/14/22 08:00 05/14/22 08:00 05/14/22 08:00 - Constitutional no acute distress, obese, cooperative - Routine HEENT Exam Head: Present: normocephalic, atraumatic Eye: Present: EOMI, PERRL ENT: Present: mucous membranes moist - Routine Neck Exam Present: supple, full ROM, trachea midline. Absent: JVD, lymphadenopathy - Routine Respiratory Exam Absent: accessory muscle use, respiratory distress Comments: Symmetric chest movement, able to speak in complete sentences - Routine Cardiovascular Exam Present: RRR Comments: Normal peripheral pulses - Routine Abdominal Exam Present: soft. Absent: tenderness - Routine Extremities Exam Comments: Upon examination of the right lower extremity: Dressings present over the right hip and right knee are clean, dry, and intact. No evidence of drainage or bleeding noted. The right knee and right hip are somewhat tender to palpation. Attempted movements of the right leg are somewhat painful. Thigh and calf are soft nontender; Homans' sign is negative. No clinical evidence of DVT noted. Posterior tibial pulse 1+; capillary refill is brisk. Sensation to light touch is grossly intact throughout. Distal neurovascular status is intact. - Routine Skin Exam Present: intact, warm, normal turgor. Absent: cyanosis, erythema, lesions, jaundice - Routine Neurological Exam Present: alert, oriented X3, moving all extremities, normal tone, normal speech. Absent: sensory deficit, altered mental status - Routine Psychiatric Exam Present: normal affect, cooperative - Urinary Catheter Management Nix Cath placed during this visit: no Progress Note: A&P (1) Right femoral fracture Status: Acute (2) Nasal fracture Status: Acute (3) Anxiety and depression Status: Chronic (4) S/P BKA (below knee amputation) unilateral Status: Chronic (5) Left-sided weakness Status: Chronic (6) CVA (cerebral vascular accident) Status: Acute (7) UTI (urinary tract infection) Status: Acute (8) Obesity Status: Acute Assessment and Plan for All Diagnoses:: I have discussed the clinical findings and progress with the patient. Overall she is doing well from orthopedic standpoint this morning. Dressings present over the right hip and right knee are clean, dry, and intact. Continue PT/OT; patient may transfer weightbearing as tolerated on the right lower extremity. She may resume her normal home dose of Xarelto for DVT prophylaxis. Continue rest, ice, activity modification, and pain medication as needed. All questions were answered and the patient verbalized a good understanding. Case management team coordinating discharge planning; patient and her family have expressed a desire for placement for care home/rehabilitation, but do not desire for her to return to [place]. We will plan to see her in our office for her first postoperative follow-up in [facility]
--- NOTE | 2022-05-14 09:18 | HMH.ACPN ---
Internal Medicine - PN: Subj *Date: 05/14/22 *Time: 09:18 Exam Vital signs and Labs for Last 24 Hours: Temp Pulse Resp BP Pulse Ox 98.2 F 85 18 109/47 L 91 L 05/14/22 08:00 05/14/22 08:00 05/14/22 08:00 05/14/22 08:00 05/14/22 08:00 Laboratory Results - last 24 hr 05/13/22 12:01: POC Glucose 203 H 05/13/22 17:24: POC Glucose 198 H 05/13/22 20:14: POC Glucose 174 H 05/14/22 06:17: WBC 8.3, RBC 3.11 L, Hgb 9.2 L, Hct 27.2 L, MCV 87.5, MCH 29.6, MCHC 33.8, RDW 16.1, Plt Count 354, MPV 8.7, Neut % (Auto) 57.0, Lymph % (Auto) 25.8, [place] % (Auto) 8.9, Eos % (Auto) 7.3, Baso % (Auto) 0.9, Neut # (Auto) 4.7, Lymph # (Auto) 2.1, [place] # (Auto) 0.7, Eos # (Auto) 0.6 H, Baso # (Auto) 0.1 05/14/22 06:17: Sodium 136, Potassium 3.7, Chloride 98, Carbon Dioxide 34 H, Anion Gap 7.7, BUN 17 D, Creatinine 0.50 L, Estimated Creat Clear 242, Estimated GFR 128, Est GFR ( Amer) 154 D, Glucose 125 H, Calcium 8.8 I & O for Last 24 hours: Intake & Output 05/11/22 05/12/22 05/13/22 05/14/22 23:59 23:59 23:59 23:59 Intake Total 2045 / 2045 1860 / 1860 770 / 770 500 / 500 Output Total 2400 / 3100 700 / 1700 2200 / 2200 1250 / 1250 Balance -355 / -1055 1160 / 160 -1430 / -1430 -750 / -750 Weight 124.375 kg 122.47 kg 122.47 kg 122.107 kg Microbiology Reports for the Last 24 Hours: Microbiology 05/09/22 16:30 Urine,Catheterized Urine Culture - Preliminary Proteus mirabilis Gram Negative Rods 05/10/22 08:10 Urine,Catheterized Urine Culture - Preliminary Proteus mirabilis Gram Negative Rods Assessment and Plan (1) Right femoral fracture Status: Acute Qualifiers: Encounter type: initial encounter Femur location: shaft Fracture type: closed Fracture morphology: comminuted Fracture alignment: displaced Qualified Code(s): S72.351A - Displaced comminuted fracture of shaft of right femur, initial encounter for closed fracture Category: Medical Code(s): S72.91XA - Unspecified fracture of right femur, initial encounter for closed fracture (2) Nasal fracture Status: Acute Qualifiers: Encounter type: initial encounter Fracture type: closed Qualified Code(s): S02.2XXA - Fracture of nasal bones, initial encounter for closed fracture Category: Medical Code(s): S02.2XXA - Fracture of nasal bones, initial encounter for closed fracture (3) Anxiety and depression Status: Chronic Category: Medical Code(s): F41.9 - Anxiety disorder, unspecified; F32.A - Depression, unspecified (4) S/P BKA (below knee amputation) unilateral Status: Chronic Category: Surgical Code(s): Z89.519 - Acquired absence of unspecified leg below knee (5) Left-sided weakness Status: Chronic Category: Medical Code(s): R53.1 - Weakness (6) CVA (cerebral vascular accident) Status: Acute Category: Medical Code(s): I63.9 - Cerebral infarction, unspecified (7) UTI (urinary tract infection) Status: Acute Qualifiers: Urinary tract infection type: site unspecified Hematuria presence: without hematuria Qualified Code(s): N39.0 - Urinary tract infection, site not specified Category: Medical Code(s): N39.0 - Urinary tract infection, site not specified (8) Obesity Status: Acute Qualifiers: Obesity type: due to excess calories Obesity classification: adult class 3 (BMI >= 40) Serious obesity comorbidity presence: with serious comorbidity Body mass index: BMI 40.0-44.9 Qualified Code(s): E66.01 - Morbid (severe) obesity due to excess calories; Z68.41 - Body mass index [BMI] 40.0-44.9, adult Category: Medical Code(s): E66.9 - Obesity, unspecified The patient's infection will respond to the chosen ABx?: Yes Is the patient receiving the right drug, dose, and route?: Yes Could a more targeted ABx be ordered?: No
--- NOTE | 2022-05-14 09:21 | HMH.ACPN2 ---
Internal Medicine - PN: Subj *Date: 05/14/22 *Time: 14:43 Interval history: 56-year-old female patient resting in bed quietly with eyes open, she reports pain at a tolerable level. Elastoplast dressing clean dry and intact to right hip and Trent wrap clean dry and intact to right knee. Case management is working on placement, patient denies any concerns/needs at this time Exam Vital signs and Labs for Last 24 Hours: Temp Pulse Resp BP Pulse Ox 98.2 F 85 18 109/47 L 91 L 05/14/22 08:00 05/14/22 08:00 05/14/22 08:00 05/14/22 08:00 05/14/22 08:00 Laboratory Results - last 24 hr 05/13/22 12:01: POC Glucose 203 H 05/13/22 17:24: POC Glucose 198 H 05/13/22 20:14: POC Glucose 174 H 05/14/22 06:17: WBC 8.3, RBC 3.11 L, Hgb 9.2 L, Hct 27.2 L, MCV 87.5, MCH 29.6, MCHC 33.8, RDW 16.1, Plt Count 354, MPV 8.7, Neut % (Auto) 57.0, Lymph % (Auto) 25.8, [place] % (Auto) 8.9, Eos % (Auto) 7.3, Baso % (Auto) 0.9, Neut # (Auto) 4.7, Lymph # (Auto) 2.1, [place] # (Auto) 0.7, Eos # (Auto) 0.6 H, Baso # (Auto) 0.1 05/14/22 06:17: Sodium 136, Potassium 3.7, Chloride 98, Carbon Dioxide 34 H, Anion Gap 7.7, BUN 17 D, Creatinine 0.50 L, Estimated Creat Clear 242, Estimated GFR 128, Est GFR ( Amer) 154 D, Glucose 125 H, Calcium 8.8 I & O for Last 24 hours: Intake & Output 05/11/22 05/12/22 05/13/22 05/14/22 23:59 23:59 23:59 23:59 Intake Total 2045 / 2045 1860 / 1860 770 / 770 500 / 500 Output Total 2400 / 3100 700 / 1700 2200 / 2200 1250 / 1250 Balance -355 / -1055 1160 / 160 -1430 / -1430 -750 / -750 Weight 274 lb 3.2 oz 270 lb 270 lb 269 lb 3.2 oz Microbiology Reports for the Last 24 Hours: Microbiology 05/09/22 16:30 Urine,Catheterized Urine Culture - Preliminary Proteus mirabilis Gram Negative Rods 05/10/22 08:10 Urine,Catheterized Urine Culture - Preliminary Proteus mirabilis Gram Negative Rods - Constitutional no acute distress, obese - *Routine HEENT Exam Head: Present: normocephalic Eye: Present: EOMI ENT: Present: mucous membranes moist - *Routine Neck Exam Present: trachea midline. Absent: tracheal deviation - *Routine Respiratory Exam Present: CTA bilaterally. Absent: accessory muscle use - *Routine Cardiovascular Exam Present: RRR - *Routine Abdominal Exam Present: soft, normoactive bowel sounds, obese. Absent: tenderness, firm - *Routine Extremities Exam Present: pulses intact. Absent: cyanosis, clubbing Comments: L BKA - *Routine Skin Exam Present: dry, warm. Absent: intact, cyanosis, erythema Comments: Elastoplast dressing right hip Trent wrap to right knee - *Routine Neurological Exam Present: alert, oriented X3. Absent: motor deficit - Routine Psychiatric Exam Present: normal affect, normal thought process. Absent: visual hallucinations Assessment and Plan (1) Right femoral fracture Status: Acute Qualifiers: Encounter type: initial encounter Femur location: shaft Fracture type: closed Fracture morphology: comminuted Fracture alignment: displaced Qualified Code(s): S72.351A - Displaced comminuted fracture of shaft of right femur, initial encounter for closed fracture Category: Medical Code(s): S72.91XA - Unspecified fracture of right femur, initial encounter for closed fracture (2) Nasal fracture Status: Acute Qualifiers: Encounter type: initial encounter Fracture type: closed Qualified Code(s): S02.2XXA - Fracture of nasal bones, initial encounter for closed fracture Category: Medical Code(s): S02.2XXA - Fracture of nasal bones, initial encounter for closed fracture (3) Anxiety and depression Status: Chronic Category: Medical Code(s): F41.9 - Anxiety disorder, unspecified; F32.A - Depression, unspecified (4) S/P BKA (below knee amputation) unilateral Status: Chronic Category: Surgical Cod
[2022-05-14 12:47] LABS: POC Glucose,Bedside 154 (70-110)
--- NOTE | 2022-05-14 14:45 | HMH.ANESII ---
[facility] Anesthesia Record Part II Discharge Time: 11:45 (05/10/22) Destination: Medical Surgical Department PACU nurse assessment reviewed?: Yes Patient Condition:: Good Anesthesia Complications:: None Swallowing reflex intact?: Yes Cyanosis?: No Blood Pressure: 124/68 Pulse Rate: 75 Temperature: 97.9 F Mental Status: Alert & Oriented Pain level:: 0 Nausea and/or vomitting:: None Intake, IV Amount: 0
--- NOTE | 2022-05-14 14:59 | PC.NURSE ---
rounded on patient. patient sitting up in bed asleep. no family at bedside.
[2022-05-14 17:43] LABS: POC Glucose,Bedside 253 (70-110)
--- NOTE | 2022-05-14 18:32 | PC.NURSE ---
pt has rested in bed most of the shift. she was able to work with PT. pt did endorse significant pain when dressing was removed by ortho. pt is excited about the prospect of having a new halfway facility to go to. pt is compliant with care. nad. lungs are clear, bowel sounds are active in all quads.
--- NOTE | 2022-05-14 21:56 | PC.NURSE ---
called report to Cornelia HARRELL in OB, pt moving to [id number] via bed
[2022-05-15 03:42] VITALS: BP 148/63; PULSE 63; RESP 18; TEMP 37.3; O2SAT 100
[2022-05-15 03:47] VITALS: BMI 39.9
--- NOTE | 2022-05-15 04:03 | PC.NURSE ---
PT TO UNIT AROUND 10PM. PT HAS HAD NO ACUTE CHANGES SINCE ARRIVAL TO FLOOR. A&OX4, TOLERATING 3LNC WELL. X2 ASSIST TO TURN IN BED. PURE WICK IN PLACE. PT HAS BEEN SLEEPING MAJORITY OF SHIFT, HAS HAD NO NEEDS OR C/O THUS FAR. DRESSING TO R LEG OPEN TO AIR, CLEAN AND DRY. VSS, WILL CONTINUE TO MONITOR.
[2022-05-15 06:12] LABS: POC Glucose,Bedside 116 (70-110)
[2022-05-15 06:18] VITALS: O2SAT 91
[2022-05-15 07:00] LABS: Basophils # 0.1 K/mm3 (0-0.2); Basophils % 1.5 % (0.1-2.0); Eosinophils # 0.6 K/mm3 (0.0-0.4); Eosinophils % 6.5 % (0.1-12.0); Hematocrit 32.7 % (37.0-47.0); Hemoglobin 9.7 g/dL (12.2-16.2); Lymphocytes # 2.4 K/mm3 (0.7-4.5); Lymphocytes % 27.3 % (10-50); Mean Corpuscular HGB Conc 29.7 g/dL (31.8-35.4); Mean Corpuscular Hemoglobin 28.5 pg (27.0-31.2); Mean Corpuscular Volume 95.9 fl (81-99); Mean Platelet Volume 9.2 fl (7.4-10.4); Monocytes # 0.7 K/mm3 (0.1-1.0); Monocytes % 8.2 % (1.7-9.3); Neutrophils # 4.9 K/mm3 (1.8-7.8); Neutrophils % 56.6 % (37.0-80.0); Platelet Count 415 K/mm3 (142-424); Red Blood Count 3.41 M/mm3 (4.20-5.40); Red Cell Distribution Width 16.7 % (11.5-17.5); White Blood Count 8.7 K/mm3 (4.8-10.8)
--- NOTE | 2022-05-15 07:31 | HMH.ORTHPN ---
Subjective Date: 05/15/22 Time: 07:10 Principal diagnosis: right femur fracture Interval history: Patient is a 56-year-old female who underwent an uneventful right closed reduction and retrograde femoral nailing performed by Dr. Weinberg on 05/10/2022. Today the patient is postop day #5. This morning the patient is resting comfortably in bed. She reports right leg pain as to be expected but that it is well controlled with rest and as needed pain medication. No history of fevers, chills, rigors, or distal tingling/numbness. She denies any other symptoms or concerns at this time. PN: Obj Ex Vital signs: Temp Pulse Resp BP Pulse Ox 99.1 F 63 18 148/63 H 91 L 05/15/22 03:42 05/15/22 03:42 05/15/22 03:42 05/15/22 03:42 05/15/22 06:18 - Constitutional no acute distress, obese - Routine HEENT Exam Head: Present: normocephalic, atraumatic Eye: Present: EOMI, PERRL ENT: Present: mucous membranes moist - Routine Neck Exam Present: supple, full ROM, trachea midline. Absent: JVD, lymphadenopathy - Routine Respiratory Exam Absent: accessory muscle use, respiratory distress Comments: symmetric chest movement, able to speak in complete sentences - Routine Cardiovascular Exam Present: RRR Comments: normal peripheral pulses - Routine Abdominal Exam Present: soft. Absent: tenderness - Routine Extremities Exam Comments: Upon examination of the right lower extremity: The surgical incisions are healing well. No erythema, induration, bleeding, purulent drainage, or other signs of infection noted. There are Dermabond Prineo skin closure dressings present over the incisions. The right knee and right hip are somewhat tender to palpation. Attempted movements of the right leg are somewhat painful. Thigh and calf are soft nontender; Homans' sign is negative. No clinical evidence of DVT noted. Posterior tibial pulse 1+; capillary refill is brisk. Sensation to light touch is grossly intact throughout. Distal neurovascular status is intact. - Routine Skin Exam Present: intact, warm, normal turgor. Absent: cyanosis, erythema, lesions, jaundice - Routine Neurological Exam Present: alert, oriented X3, moving all extremities, normal tone, normal speech. Absent: sensory deficit, motor deficit, altered mental status - Routine Psychiatric Exam Present: normal affect, cooperative - Urinary Catheter Management Nix Cath placed during this visit: no Progress Note: A&P (1) Right femoral fracture Status: Acute (2) Nasal fracture Status: Acute (3) Anxiety and depression Status: Chronic (4) S/P BKA (below knee amputation) unilateral Status: Chronic (5) Left-sided weakness Status: Chronic (6) CVA (cerebral vascular accident) Status: Acute (7) UTI (urinary tract infection) Status: Acute (8) Obesity Status: Acute Assessment and Plan for All Diagnoses:: Overall the patient is doing well from orthopedic standpoint this morning, she may be discharged when medically appropriate. The surgical incisions are healing well; there are Dermabond Prineo skin closure dressings over the surgical incisions. Continue PT/OT; patient may transfer weightbearing as tolerated on the right lower extremity. She may resume her normal home dose of Xarelto for DVT prophylaxis. Continue rest, ice, activity modification, and pain medication as needed. Case management team coordinating discharge planning; patient and her family have expressed a desire for placement for prison/rehabilitation, but do not desire for her to return to [place]. We will plan to see her in our office for her first postoperative follow-up in approximately 2 weeks for repeat x-ray and reevaluation. Continue medical management as per Dr. Patterson.
--- NOTE | 2022-05-15 07:32 | PC.NURSE ---
Earline from lab called with a urine culture result on the patient. +ESBL Name, and result verified x2 Dr. Patterson notified at this time. No new orders.
[2022-05-15 07:51] LABS: Anion Gap 14.6 mEq/L (5-15); Blood Urea Nitrogen 19 mg/dl (7-17); Calcium 8.6 mg/dl (8.4-10.2); Carbon Dioxide 30 mmol/L (22.0-30.0); Chloride 97 mmol/L (98-107); Creatinine Clearance Estimated 202 mL/min (50-200); Estimated Glomerular Filt Rate 103 ml/min (>60); GFR (African American) 125 ML/MIN (>60); Glucose 114 mg/dl (74-100); Potassium 4.6 mmoL/L (3.5-5.1); Sodium 137 mmol/L (136-145)
[2022-05-15 08:00] VITALS: BP 138/63; PULSE 70; RESP 20; TEMP 36.9; O2SAT 97
[2022-05-15 10:40] LABS: POC Glucose,Bedside 173 (70-110)
--- NOTE | 2022-05-15 12:14 | HMH.DCSUM ---
General - General Admission date:: 05/07/22 Discharge date: 05/15/22 HPI HPI: 56-year-old female patient presented to the [facility] emergency department via EMS after fall at retirement. She has right hemiparesis from previous CVA and a left [id number] amputation. She states that she was getting put back into her wheelchair she fell forward and landed face down on floor. She does complain of facial pain and pain in her right lower extremity. Right femoral x-ray reveals: There is a comminuted fracture of the distal femoral diaphysis with 20 mm of lateral displacement of the main distal fracture fragment. There is also anterior displacement the distal fracture fragments. There is mild degenerative change the hip and knee. There is moderate vascular calcification. Facial x-rays reveal nasal bone fracture and septal fracture Ortho and ENT consulted Hospital Course Hospital Course: 56-year-old female patient presented to the [facility] emergency department via EMS after fall at retirement. She has right hemiparesis from previous CVA and a left [id number] amputation. She states that she was getting put back into her wheelchair she fell forward and landed face down on floor. She does complain of facial pain and pain in her right lower extremity. Right femoral x-ray reveals: There is a comminuted fracture of the distal femoral diaphysis with 20 mm of lateral displacement of the main distal fracture fragment. There is also anterior displacement the distal fracture fragments. There is mild degenerative change the hip and knee. There is moderate vascular calcification. Facial x-rays reveal nasal bone fracture and septal fracture Ortho and ENT consulted 05/08/22 ENT seen and recommends: c/s nasal bone fracture and septal fracture nasal bone fractures are non displaced and require no further intervention appears to have fracture through ning aspect of septum but no obvious hematoma with resulting right septal deviation - recommend nasal saline spray to clear the old blood, ppx antibiotics to cover for sinusitis, and have f/u as an outpatient. Can consider septoplasty to address in the future but patient has more acute issues including a femor fracture that take precedent at this time. Will have her f/u in clinic in 2-3 months. 05/09/2022 cardiology seen and recommends: CAD/PAD -[facility] 02/28-patent coronary arteries. -Continue BB and Trent as bp can tolerate. Once cleared by surgery resume aspirin and xarelto 2.5mg. -High dose statin Diastolic dysfunction -Echo 04/2020- EF 50, grade one DD -Echo 05/08/2022- no change -no signs of acute exacerbation -Continue home lasix as previously directed. hold as needed for hypotension Hypotension -Can hold Lisinopril 10mg, resume as BP will allow -R/o sepsis/infection due to acute confusion, UA pending CV stable. Acceptable risks for surgery. will sign off. contact service as needed. 05/08/2022 patient unable to go to surgery due to being on Xarelto and has been stopped 05/09/2022 patient's hemoglobin is 6.6 she received 2 units packed red blood cells post infusion hemoglobin 11.1 05/10/2022 Ortho performed a Closed reduction and retrograde femoral nailing, left: Surgeon:: Joaquín Weinberg MD Psychiatric Clinician(s):: Marina Lambert PA-C Anesthesia: spinal (Chris Nan) Estimated blood loss (mL): 100 Clinical Note:: The patient is a 56-year-old female, who sustained a comminuted and displaced supracondylar fracture of the right femur few days ago following a mechanical fall. She has multiple medical problems including diabetes mellitus, right hemiparesis and peripheral vascular disease among others. She is a resident of a retirement and is nonambulatory at baseline. She does not have any motor function in the right lower extremity. However, she is having severe pain over the distal thigh, knee boni
--- NOTE | 2022-05-15 14:15 | PC.NURSE ---
Report called to SHARRI Bliss at [facility]
--- NOTE | 2022-05-15 14:28 | PC.NURSE ---
Keith notified of transfer
--- NOTE | 2022-05-15 15:16 | PC.NURSE ---
Pt off the unit at this time per EMS
--- NOTE | 2022-05-16 15:35 | CARE MANAGER ---
Contacted [facility] who states patient is settling in and they deny any questions or concerns. SHARRI Andrews
== END 2022-05-15 15:16 | DRG 481 ==
LOC: ER 14:25 → 2ND 15:03 → OB 05-14 21:36
PROVIDERS: Internal Medicine Adolescent Medicine; Nurse Practitioner; Nurse Practitioner Family; Orthopaedic Surgery; Physician Assistant Surgical; Admitting Provider Emergency Medicine; Emergency Provider Emergency Medicine; PCP Physician Assistant; Visit Provider Emergency Medicine
PROC: (CPT 27245; principal; 2022-05-08 14:45)
DX: S72.452A Displaced supracondylar fracture without intracondylar extension of lower end of left femur, initial encounter for closed fracture (principal); I69.351 Hemiplegia and hemiparesis following cerebral infarction affecting right dominant side; I42.9 Cardiomyopathy, unspecified; S02.2XXA Fracture of nasal bones, initial encounter for closed fracture; W05.0XXA Fall from non-moving wheelchair, initial encounter; Y92.122 Bedroom in nursing home as the place of occurrence of the external cause; I11.0 Hypertensive heart disease with heart failure; I50.9 Heart failure, unspecified; I25.10 Atherosclerotic heart disease of native coronary artery without angina pectoris; J44.9 Chronic obstructive pulmonary disease, unspecified; Z89.519 Acquired absence of unspecified leg below knee; Z87.891 Personal history of nicotine dependence; Z95.5 Presence of coronary angioplasty implant and graft; E11.9 Type 2 diabetes mellitus without complications; Z79.4 Long term (current) use of insulin; E03.9 Hypothyroidism, unspecified
CPT/HCPCS: 27511; 36415; 70450; 70486; 71045; 72125; 72170; 73551; 73552; 73590; 73700; 76000; 80048; 80053; 81001; 82962; 83036; 84132; 85025; 86850; 87086; 87088; 87186; 93005; 93308; 94640; 94761; 97110; 97140; 97163; 97166; 97530; 99285; C1713; C1769; C1776; C9803; J0696; J1335; J2405; P9016; U0003; U0005

== ENCOUNTER → 2022-06-05 10:35 | Outpatient (CLI) | payer MEDICARE, MEDICAID, SELFPAY ==
--- NOTE | 2022-06-05 10:40 | XR_ITS ---
PROCEDURE INFORMATION: Exam: XR Right Femur Exam date and time: 06/05/2022 10:54 AM Age: 56 years old Clinical indication: Pain; Thigh; Right; Prior surgery; Surgery date: 6+ months; Additional info: Femur fracture TECHNIQUE: Imaging protocol: Radiologic exam of the Right femur. Views: 2 views. COMPARISON: CR XR FEMUR RT 1V 05/10/2022 11:40 AM FINDINGS: Bones/joints: An intramedullary mary kay enters from the intratrochanteric notch and courses cephalad to terminate at the level of the lesser trochanter. For distal and single proximal transversely oriented approximation screws are present. Fracture fragments of the mid and distal femur have been approximated to grossly anatomic alignment. Diffuse bone demineralization. Osteophytosis and eburnation of the articulating surfaces of the knee and hip. Soft tissues: Diminished subcutaneous and deep fascial emphysema compared to prior recent study. Vasculature: Arterial calcifications are present. IMPRESSION: 1. An intramedullary mary kay enters from the intratrochanteric notch and courses cephalad to terminate at the level of the lesser trochanter. For distal and single proximal transversely oriented approximation screws are present. Fracture fragments of the mid and distal femur have been approximated to grossly anatomic alignment. 2. Atherosclerotic vascular disease. 3. Osteopenia. 4. Osteoarthritis of the knee and hip. 5. Diminished subcutaneous and deep fascial emphysema compared to prior recent study.
== END ==
PROVIDERS: PCP Emergency Medicine; Visit Provider Physician Assistant Surgical
DX: S72.351D Displaced comminuted fracture of shaft of right femur, subsequent encounter for closed fracture with routine healing (principal)
CPT/HCPCS: 73552

== ENCOUNTER → 2022-07-02 10:12 | Outpatient (CLI) | payer MEDICARE, MEDICAID, SELFPAY ==
--- NOTE | 2022-07-02 10:16 | XR_ITS ---
FINAL REPORT CLINICAL HISTORY: rt femur fx COMPARISON: June 05, 2022 FINDINGS: RIGHT FEMUR 2 views were obtained. An IM mary kay is present securing a comminuted displaced fracture of the distal femur. Fracture fragments are and unchanged in position. There is some mild callus formation present. IMPRESSION: Stable fracture with mild callus formation now evident. Reviewed, Interpreted and Dictated by Ulises Trujillo MD Transcribed by Salina Martino Authenticated and . [facility]
== END ==
PROVIDERS: PCP Emergency Medicine; Visit Provider Emergency Medicine
DX: S72.91XA Unspecified fracture of right femur, initial encounter for closed fracture (principal)
CPT/HCPCS: 73552

== ENCOUNTER → 2022-08-06 08:48 | Outpatient (CLI) | payer MEDICARE, MEDICAID, SELFPAY ==
--- NOTE | 2022-08-06 08:53 | XR_ITS ---
FINAL REPORT CLINICAL HISTORY: fracture COMPARISON: July 02, 2022 FINDINGS: RIGHT FEMUR Two views of the right femur were obtained. There are postoperative changes from ORIF of a comminuted fracture of the distal femoral shaft. Callus formation is noted without significant change. There is mild displacement. A small joint effusion is seen. IMPRESSION: Stable appearing comminuted distal femur fracture with callus formation but no radiographic bony union. Reviewed, Interpreted and Dictated by Augie Ferguson MD Transcribed by Salina Martino Authenticated and [facility][1]
== END ==
PROVIDERS: PCP Emergency Medicine; Visit Provider Orthopaedic Surgery
DX: S72.91XA Unspecified fracture of right femur, initial encounter for closed fracture (principal)
CPT/HCPCS: 73552

== ENCOUNTER → 2023-05-30 23:16 | Outpatient (CLI) | payer MEDICARE, MEDICAID, SELFPAY ==
[2023-05-30 18:07] LABS: Basophils # 0.1 K/mm3 (0-0.2); Basophils % 0.5 % (0.1-2.0); Eosinophils # 0.3 K/mm3 (0.0-0.4); Eosinophils % 2.3 % (0.1-12.0); Hematocrit 43.6 % (37.0-47.0); Hemoglobin 13.8 g/dL (12.2-16.2); Lymphocytes # 2.1 K/mm3 (0.7-4.5); Lymphocytes % 18.3 % (10-50); Mean Corpuscular HGB Conc 31.8 g/dL (31.8-35.4); Mean Corpuscular Hemoglobin 30.3 pg (27.0-31.2); Mean Corpuscular Volume 95.5 fl (81-99); Mean Platelet Volume 10.3 fl (7.4-10.4); Monocytes # 0.5 K/mm3 (0.1-1.0); Monocytes % 4.2 % (1.7-9.3); Neutrophils # 8.7 K/mm3 (1.8-7.8); Neutrophils % 74.6 % (37.0-80.0); Platelet Count 261 K/mm3 (142-424); Red Blood Count 4.56 M/mm3 (4.20-5.40); Red Cell Distribution Width 16.7 % (11.5-17.5); White Blood Count 11.6 K/mm3 (4.8-10.8)
[2023-05-30 18:17] LABS: Alanine Aminotransferase 18 U/L (12-78); Albumin Level 3.5 g/dl (3.5-5.0); Albumin/Globulin Ratio 1.1 (1.1-1.8); Alkaline Phosphatase 128 U/L (38-126); Anion Gap 11.9 mEq/L (5-15); Aspartate Amino Transferase 22 U/L (14-36); Bilirubin,Total 0.2 mg/dl (0.2-1.3); Blood Urea Nitrogen 21 mg/dl (7-17); Calcium 9.6 mg/dl (8.4-10.2); Carbon Dioxide 33 mmol/L (22.0-30.0); Chloride 98 mmol/L (98-107); Chol/HDL Ratio 3.3 (1-3.5); Cholesterol 169 mg/dl (140-200); Estimated Glomerular Filt Rate 103 ml/min (>60); GFR (African American) 125 ML/MIN (>60); Globulin 3.2 g/dL (1.3-3.2); Glucose 202 mg/dl (74-100); HDL Cholesterol 52 mg/dl (40-60); Potassium 3.9 mmoL/L (3.5-5.1); Sodium 139 mmol/L (136-145); Total Protein,Serum 6.7 g/dl (6.3-8.2); Triglycerides 204 mg/dl (30-150); VLDL Cholesterol 41 mg/dL (0-40)
[2023-05-30 18:20] LABS: Hemoglobin A1C 8.6 % (4.0-6.0)
[2023-05-30 18:28] LABS: Direct LDL Cholesterol 78.11 mg/dL (100-129)
[2023-05-30 18:36] LABS: 25-OH Vitamin D, Total 41.2 ng/mL (30-100); T4 (Thyroxine) 15.2 ug/dl (5.53-11.0)
== END ==
PROVIDERS: PCP Emergency Medicine; Visit Provider Emergency Medicine
DX: E11.40 Type 2 diabetes mellitus with diabetic neuropathy, unspecified (principal); Z79.4 Long term (current) use of insulin; E55.9 Vitamin D deficiency, unspecified; R06.02 Shortness of breath; E66.9 Obesity, unspecified; Z68.35 Body mass index [BMI] 35.0-35.9, adult
CPT/HCPCS: 80053; 80061; 82306; 83036; 84436; 84443; 85025

== ENCOUNTER → 2023-06-04 16:36 | Outpatient (CLI) | payer MEDICARE, MEDICAID, SELFPAY | PROVIDERS: PCP Emergency Medicine; Visit Provider Emergency Medicine | DX: R82.90 Unspecified abnormal findings in urine (principal); B96.4 Proteus (mirabilis) (morganii) as the cause of diseases classified elsewhere | CPT/HCPCS: 87086; 87088; 87186 ==

== ENCOUNTER 2023-06-10 16:22 | Observation (INO) | payer MEDICARE, MEDICAID, SELFPAY ==
[2023-06-10] VITALS (8 sets, daily range): BP systolic 126–157; BP diastolic 71–98; PULSE 72–80; RESP 17–20; TEMP 36.6–36.9; O2SAT 91–97; BMI 36.0; BMI 28.3
--- NOTE | 2023-06-10 16:29 | XR_ITS ---
PROCEDURE INFORMATION: Exam: XR Chest Exam date and time: 06/10/2023 4:34 PM Age: 57 years old Clinical indication: Condition or disease; Other: Patient states she has severe UTI. Patient HX: Patient states she has a very bad UTI. Very large, bedfast patient. She cannot stand or walk. She smokes. ; Additional info: SOA TECHNIQUE: Imaging protocol: Radiologic exam of the chest. Views: 1 view. COMPARISON: CR XR CHEST PORTABLE 05/07/2022 12:41 PM FINDINGS: Lungs: No evidence of pneumonia or interstitial edema. Pleural spaces: Unremarkable. No pleural effusion. No pneumothorax. Heart/Mediastinum: Cardiomegaly noted. Bones/joints: Unremarkable. IMPRESSION: No evidence of pneumonia or interstitial edema.
--- NOTE | 2023-06-10 16:30 | HMH.EDGENADL ---
Discharge Plan Disposition Patient Disposition: Admitted Condition: Good Clinical Impressions Clinical Impression: UTI (urinary tract infection), Debility Discharge ED Provider: Denisse Kincaid General Adult HPI General Chief complaint: Recheck/Abnormal Lab/Rx Stated complaint: abnormal labs Time Seen by Provider: 06/10/23 16:24 History of Present Illness HPI narrative: This patient is a 57-year-old female with a history of morbid obesity, CVA, CAD, PAD status post L BKA, COPD on home oxygen, type 2 diabetes, hypertension, hyperlipidemia, hypertensive heart disease, and chronic debility presenting to the emergency department for evaluation because she states that she had abnormal labs with her home health nurse and they told her to go to the ER for antibiotics for a UTI. Patient reports that she has been home from the retirement for approximately 5 and half months with home health, but she has no one to help take care of her at home and she is unable to take care of herself at this time. They wanted to do antibiotic injections at home for UTI, however she states that she did not have anyone to help her, so she presented here today. She notes that she has had nausea and constipation, but she denies any fevers, chills, vomiting, or other concerns. she has reportedly been accepted to [facility] for placement for care. Related Data Home Medications Medication Instructions Recorded Confirmed aspirin 81 mg tablet,delayed 81 mg PO DAILY [facility] 03/07/22 05/30/23 release rivaroxaban 2.5 mg tablet 2.5 mg PO BID CVA 05/07/22 05/30/23 melatonin 3 mg tablet 3 mg PO HS sleep 05/08/22 05/30/23 lisinopril 20 mg tablet 20 mg PO DAILY 05/30/23 05/30/23 Previous Rx's Medication Instructions Recorded acetaminophen 500 mg tablet 1,000 mg PO Q6HP PRN As Needed For 12/11/20 (Tylenol Extra Strength) Fever Or Pain #120 tabs budesonide-formoterol HFA 160 See Rx Instructions .Route 07/23/22 mcg-4.5 mcg/actuation aerosol .COMPLEX #30.6 ea inhaler (Symbicort) blood-glucose meter (Advanced #1 ea 08/02/22 Glucose Meter) ipratropium bromide 0.02 % 2.5 ml inhalation Q6H PRN 08/02/22 solution for inhalation shortness of breath or wheezing #150 mL lancets 30 gauge (Advanced Travel #100 ea 08/02/22 Lancets) blood sugar diagnostic (True #100 strips 12/06/22 Metrix Glucose Test Strip) semaglutide 0.25 mg or 0.5 mg (2 See Rx Instructions .Route 01/31/23 mg/1.5 mL) subcutaneous pen .COMPLEX #1.5 mL injector (Ozempic) sennosides 8.6 mg tablet 17.2 mg PO HS constipation #60 tabs 02/21/23 nystatin 100,000 unit/gram topical 1 applic topical TID #60 grams 03/10/23 powder menthol 0.44 %-zinc oxide 20.6 % 1 applic topical QID PRN skin 03/12/23 topical ointment (Calmoseptine) irritation #113 grams cholecalciferol (vitamin D3) 1,250 1,250 mcg PO WEEKLY #12 caps 03/17/23 mcg (50,000 unit) capsule cholecalciferol (vitamin D3) 50 50 mcg PO DAILY #90 caps 03/17/23 mcg (2,000 unit) capsule ondansetron 4 mg disintegrating 4 mg PO Q8H PRN nausea and 04/03/23 tablet vomiting #20 tabs atorvastatin 80 mg tablet 80 mg PO HS #90 tabs 04/14/23 carvedilol 3.125 mg tablet 3.125 mg PO BID #180 tabs 04/28/23 buspirone 15 mg tablet 15 mg PO TID Anxiety #90 tabs 05/09/23 furosemide 40 mg tablet See Rx Instructions .Route 05/22/23 .COMPLEX #90 tabs levothyroxine 150 mcg tablet See Rx Instructions .Route 05/22/23 .COMPLEX #90 tabs clonazepam 0.5 mg tablet 0.5 mg PO TID Anxiety #90 tabs 05/30/23 gabapentin 600 mg tablet 600 mg PO QID Pain #120 tabs 05/30/23 hydrocodone 7.5 mg-acetaminophen 1 tab PO Q6H PAIN #120 tabs 05/30/23 325 mg tablet insulin NPH-regular 70-30 U-100 See Rx Instructions .Route 06/04/23 insulin 100 unit/mL subcutaneous .COMPLEX #15 mL pen (Novolin 70-30 FlexPen U-100 Insulin) insulin glargine 100 unit/mL 10 unit (0.1 mL) SQ HS #10 mL 06/04/23 subcutaneous solution (Lantus U-100 Insulin) duloxetine 60 mg capsule,del
[2023-06-10 16:53] LABS: Microscopic, Urine URINE MICROSCOPIC (MICROSCOPIC)
[2023-06-10 16:55] LABS: Basophils # 0.1 K/mm3 (0-0.2); Basophils % 0.6 % (0.1-2.0); Eosinophils # 0.2 K/mm3 (0.0-0.4); Eosinophils % 2.7 % (0.1-12.0); Hematocrit 46.9 % (37.0-47.0); Hemoglobin 14.7 g/dL (12.2-16.2); Lymphocytes # 2.4 K/mm3 (0.7-4.5); Lymphocytes % 27.3 % (10-50); Mean Corpuscular HGB Conc 31.4 g/dL (31.8-35.4); Mean Corpuscular Hemoglobin 30.2 pg (27.0-31.2); Mean Corpuscular Volume 96.4 fl (81-99); Monocytes # 0.4 K/mm3 (0.1-1.0); Monocytes % 5.1 % (1.7-9.3); Neutrophils # 5.6 K/mm3 (1.8-7.8); Neutrophils % 64.4 % (37.0-80.0); Platelet Count 322 K/mm3 (142-424); Red Blood Count 4.87 M/mm3 (4.20-5.40); Red Cell Distribution Width 16.9 % (11.5-17.5); White Blood Count 8.7 K/mm3 (4.8-10.8)
[2023-06-10 16:55] LABS: Appearance,Urine CLEAR (Clear); Bilirubin,Urine Negative (Negative); Blood, Urine 3+ (Negative); Color,Urine YELLOW (Yellow); Glucose,Urine (UA) Negative (Negative); Ketones,Urine Negative (Negative); Leukocyte Esterase,Urine 1+ (Negative); Nitrate,Urine Negative (Negative); PH,Urine 5.5 (5.0-8.5); Protein,Urine 2+ (Negative); Urobilinogen,Urine 0.2 EU/dl (0.2)
[2023-06-10 16:56] LABS: Chloride 94 mmol/L (98-107); Potassium 3.3 mmoL/L (3.5-5.1); Sodium 141 mmol/L (136-145)
[2023-06-10 16:58] LABS: Blood Urea Nitrogen 17 mg/dl (7-17); Creatinine Clearance Estimated 155 mL/min (50-200); Estimated Glomerular Filt Rate 86 ml/min (>60); GFR (African American) 104 ML/MIN (>60); Lactic Acid 1.8 mmol/L (0.7-2.1)
[2023-06-10 16:59] LABS: Alanine Aminotransferase 22 U/L (12-78); Albumin Level 3.8 g/dl (3.5-5.0); Albumin/Globulin Ratio 1.1 (1.1-1.8); Alkaline Phosphatase 92 U/L (38-126); Anion Gap 10.3 mEq/L (5-15); Aspartate Amino Transferase 29 U/L (14-36); Bilirubin,Total 0.3 mg/dl (0.2-1.3); Calcium 9.4 mg/dl (8.4-10.2); Carbon Dioxide 40 mmol/L (22.0-30.0); Globulin 3.4 g/dL (1.3-3.2); Glucose 177 mg/dl (74-100); Total Protein,Serum 7.2 g/dl (6.3-8.2)
[2023-06-10 17:04] LABS: Bacteria,Urine 1+ /lpf
--- NOTE | 2023-06-10 18:18 | PC.NURSE ---
report called to jonah gaitan rn
--- NOTE | 2023-06-10 18:32 | PC.NURSE ---
Awaiting fax from Home Health for Home medications.
--- NOTE | 2023-06-10 20:20 | EXP.HP ---
History of Present Illness *Admission Date: 06/10/23 *Reason for visit:: UTI *History of present illness: This patient is a 57-year-old female with a history of morbid obesity, CVA, CAD, PAD status post L BKA, COPD on home oxygen, type 2 diabetes, hypertension, hyperlipidemia, hypertensive heart disease, and chronic debility presenting to the emergency department for evaluation because she states that she had abnormal labs with her home health nurse and they told her to go to the ER for antibiotics for a UTI. This patient presented with referred burning sensation when urinating. Patient unable to care for self at home. Has been having home health. admitted for further work-up and management. [facility] Disclaimer: The information contained in this section may have been updated after the patient was seen, as this information can be updated by other users. 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) Recent cerebrovascular accident (CVA) Right flaccid hemiplegia Right sided weakness Smoker Wheezing Surgical History S/P BKA (below knee amputation) unilateral Family History (Updated 06/10/23 @ 19:00 by Maryjo Hinojosa, SHARRI) Other Breast cancer Diabetes Heart attack Heart disease Hypothyroid Renal disease Stroke Social History (Updated 06/10/23 @ 19:01 by Maryjo Hinojosa, RN) Smoking Status: Current every day smoker tobacco type: cigarettes packs per day: 1 second hand exposure: Yes alcohol intake: never substance use type: denies use current occupational status: disabled Travel in the last 8 weeks: None household members: none housing: alf current occupational exposures/hazards: No caffeine: No Review of Systems Review of Systems Review of systems:: pertinent systems reviewed and negative unless documented below Meds Home Medications and Allergies Home Medications Medication Instructions Recorded Confirmed Type acetaminophen 500 mg tablet 1,000 mg PO Q6HP PRN As Needed For 12/11/20 06/10/23 Rx (Tylenol Extra Strength) Fever Or Pain #120 tabs aspirin 81 mg tablet,delayed 81 mg PO DAILY [facility] 03/07/22 06/10/23 History release rivaroxaban 2.5 mg tablet 2.5 mg PO BID DVT prophylaxis 05/07/22 06/10/23 History ipratropium bromide 0.02 % 2.5 ml inhalation Q6H PRN 08/02/22 06/10/23 Rx solution for inhalation shortness of breath or wheezing #150 mL sennosides 8.6 mg tablet 17.2 mg PO HS constipation #60 tabs 02/21/23 06/11/23 Rx ondansetron 4 mg disintegrating 4 mg PO Q8H PRN nausea and 04/03/23 06/10/23 Rx tablet vomiting #20 tabs buspirone 15 mg tablet 15 mg PO TID Anxiety #90 tabs 05/09/23 06/10/23 Rx clonazepam 0.5 mg tablet 0.5 mg PO TID Anxiety #90 tabs 05/30/23 06/10/23 Rx gabapentin 600 mg tablet 600 mg PO QID Pain #120 tabs 05/30/23 06/10/23 Rx hydrocodone 7.5 mg-acetaminophen 1 tab PO Q6H PAIN #120 tabs 05/30/23 06/10/23 Rx 325 mg tablet albuterol sulfate 90 mcg/actuation 2 puff inhalation Q4H PRN 06/10/23 06/11/23 History aerosol inhaler Shortness Of Breath Or Wheezing atorvastatin 80 mg tablet 80 mg PO HS Cholesterol 06/10/23 06/10/23 History blood sugar diagnostic (True 06/10/23 06/10/23 History Metrix Glucose Test Strip) blood-glucose meter (Advanced 06/10/23 06/10/23 History Glucose Meter) budesonide-fo
[2023-06-10 22:05] LABS: POC Glucose,Bedside 158 (70-110)
[2023-06-11] VITALS (8 sets, daily range): BP systolic 108–138; BP diastolic 50–67; PULSE 66–80; RESP 16–19; TEMP 36.6–36.8; O2SAT 91–93; BMI 29.2
[2023-06-11 06:47] LABS: POC Glucose,Bedside 180 (70-110)
[2023-06-11 06:55] LABS: Basophils # 0.1 K/mm3 (0-0.2); Basophils % 0.7 % (0.1-2.0); Eosinophils # 0.4 K/mm3 (0.0-0.4); Eosinophils % 4.8 % (0.1-12.0); Hematocrit 44.4 % (37.0-47.0); Hemoglobin 13.9 g/dL (12.2-16.2); Lymphocytes # 2.1 K/mm3 (0.7-4.5); Mean Corpuscular HGB Conc 31.4 g/dL (31.8-35.4); Mean Corpuscular Volume 95.6 fl (81-99); Mean Platelet Volume 9.2 fl (7.4-10.4); Monocytes # 0.4 K/mm3 (0.1-1.0); Monocytes % 5.7 % (1.7-9.3); Neutrophils # 4.8 K/mm3 (1.8-7.8); Neutrophils % 61.7 % (37.0-80.0); Platelet Count 316 K/mm3 (142-424); Red Blood Count 4.64 M/mm3 (4.20-5.40); White Blood Count 7.8 K/mm3 (4.8-10.8)
[2023-06-11 06:59] LABS: Chloride 96 mmol/L (98-107)
[2023-06-11 07:00] LABS: Potassium 3.6 mmoL/L (3.5-5.1); Sodium 139 mmol/L (136-145)
[2023-06-11 07:03] LABS: Anion Gap 9.6 mEq/L (5-15); Blood Urea Nitrogen 22 mg/dl (7-17); Calcium 9.1 mg/dl (8.4-10.2); Carbon Dioxide 37 mmol/L (22.0-30.0); Creatinine Clearance Estimated 110 mL/min (50-200); Estimated Glomerular Filt Rate 74 ml/min (>60); GFR (African American) 89 ML/MIN (>60); Glucose 172 mg/dl (74-100)
--- NOTE | 2023-06-11 08:46 | HMH.PHAINT1 ---
Pharmacy Intervention Comments: Home medications were verified using a home-made list brought in by the patient, an office visit note from 05/30/23, and the external history resource. -Jarrod Roach, PharmD student
--- NOTE | 2023-06-11 09:01 | EXP.PN ---
Subjective *Date: 06/11/23 *Time: 16:06 Interval history: No acute events overnight She states she hasn't had dysuria or other urinary symptoms She has no complaints Exam Data for Last 24 hours Vital signs and Labs for Last 24 Hours: Temp Pulse Resp BP Pulse Ox O2 Del Method O2 Flow Rate 98.2 F 74 16 132/67 92 L Room Air 2 06/11/23 07:45 06/11/23 07:45 06/11/23 07:45 06/11/23 07:45 06/11/23 07:45 06/11/23 07:45 06/11/23 06:10 Laboratory Results - last 24 hr 06/10/23 16:28: Urine Color Yellow, Urine Appearance Clear, Urine pH 5.5, Ur Specific [place] 1.020, Urine Protein 2+, Urine Glucose (UA) Negative, Urine Ketones Negative, Urine Blood 3+, Urine Nitrate Negative, Urine Bilirubin Negative, Urine Urobilinogen 0.2, Ur Leukocyte Esterase 1+ A, Urine RBC 5-10, Urine WBC 10-20, Ur Squamous Epith Cells 10-20, Urine Bacteria 1+ 06/10/23 16:35: WBC 8.7, RBC 4.87, Hgb 14.7, Hct 46.9, MCV 96.4, MCH 30.2, MCHC 31.4 L, RDW 16.9, Plt Count 322, MPV 9.0, Neut % (Auto) 64.4, Lymph % (Auto) 27.3, [place] % (Auto) 5.1, Eos % (Auto) 2.7, Baso % (Auto) 0.6, Neut # (Auto) 5.6, Lymph # (Auto) 2.4, [place] # (Auto) 0.4, Eos # (Auto) 0.2, Baso # (Auto) 0.1, Sodium 141, Potassium 3.3 L, Chloride 94 L, Carbon Dioxide 40 H, Anion Gap 10.3, BUN 17, Creatinine 0.70, Estimated Creat Clear 155, Estimated GFR 86, Est GFR ( Amer) 104, Glucose 177 H, Lactate 1.8, Calcium 9.4, Total Bilirubin 0.3, AST 29, ALT 22, Alkaline Phosphatase 92, Total Protein 7.2, Albumin 3.8, Globulin 3.4 H, Albumin/Globulin Ratio 1.1 06/10/23 21:43: POC Glucose 158 H 06/11/23 05:31: POC Glucose 180 H 06/11/23 06:37: WBC 7.8, RBC 4.64, Hgb 13.9, Hct 44.4, MCV 95.6, MCH 30.0, MCHC 31.4 L, RDW 17.0, Plt Count 316, MPV 9.2, Neut % (Auto) 61.7, Lymph % (Auto) 27.0, [place] % (Auto) 5.7, Eos % (Auto) 4.8, Baso % (Auto) 0.7, Neut # (Auto) 4.8, Lymph # (Auto) 2.1, [place] # (Auto) 0.4, Eos # (Auto) 0.4, Baso # (Auto) 0.1, Sodium 139, Potassium 3.6, Chloride 96 L, Carbon Dioxide 37 H, Anion Gap 9.6, BUN 22 H D, Creatinine 0.80, Estimated Creat Clear 110, Estimated GFR 74, Est GFR ( Amer) 89, Glucose 172 H, Calcium 9.1 I & O for Last 24 hours: Intake & Output 06/08/23 06/09/23 06/10/23 06/11/23 23:59 23:59 23:59 23:59 Intake Total 500 / 500 Output Total 0 / 0 250 / 250 Balance 0 / 140 250 / 250 Weight 86.863 kg 89.63 kg Constitutional Constitutional: no acute distress *Routine HEENT Exam Head: Present normocephalic Eye: Present EOMI and PERRL ENT: Present mucous membranes moist *Routine Neck Exam Neck: Present supple; Absent lymphadenopathy *Routine Respiratory Exam Respiratory: Present CTA bilaterally *Routine Cardiovascular Exam Cardiovascular: Present RRR *Routine Abdominal Exam Abdominal: Present soft and normoactive bowel sounds; Absent tenderness *Routine Extremities Exam Extremities: Absent cyanosis, clubbing or edema Comments: L BKA *Routine Skin Exam Skin: Present warm; Absent rash *Routine Neurological Exam Neurological: Present alert and oriented X3 Assessment and Plan *Assessment and plan (1) UTI (urinary tract infection): Status: Acute Qualifiers: Hematuria presence: without hematuria Urinary tract infection type: site unspecified Qualified Code(s): N39.0 - Urinary tract infection, site not specified Category: Medical Code(s): N39.0 - Urinary tract infection, site not specified (2) Hypokalemia: Status: Acute Category: Medical Code(s): E87.6 - Hypokalemia (3) Type 2 diabetes mellitus with diabetic neuropathy, with long-term current use of insulin: Status: Chronic Category: Medical Code(s): E11.40 - Type 2 diabetes mellitus with diabetic neuropathy, unspecified; Z79.4 - exterminator helper (current) use of insulin (4) Hyperglycemia due to type 2 diabetes mellitus: Status: Acute Qualifiers: Diabetes mellitus termite helper insulin use: without fpc use
--- NOTE | 2023-06-11 09:12 | HMH.OTEV ---
OT Inpatient Evaluation Rehab OT IP Evaluation Start: 06/10/23 17:37 Freq: ONCE Status: Active Protocol: Document 06/11/23 09:01 YAZROSE (Rec: 06/11/23 09:11 YAZROSE [id number]) Rehab OT IP Assessment Subjective History This patient is a 57-year-old female with a history of morbid obesity, CVA, CAD, PAD status post L BKA, COPD on home oxygen, type 2 diabetes, hypertension, hyperlipidemia, hypertensive heart disease, and chronic debility presenting to the emergency department for evaluation because she states that she had abnormal labs with her home health nurse and they told her to go to the ER for antibiotics for a UTI. This patient presented with referred burning sensation when urinating. Patient unable to care for self at home. Has been having home health. admitted for further work-up and management. I want to go to a Correction, I don't have anyone to take care of me. Patient has been a resident at several local [place] [facility] facility and has been home for the past 5 months. One son has been paying a sitter to assist with patient during the day, however due to complications patient has limited resources to assist for self care tasks at home. Patient uses a denise lift for all transfers 2* R LE hemiparesis and L LE AKA. Subjective I can try to sit up. Instructed Patient on proper hand and foot placement to complete supine->sit @ EOB requiring TDx2. Once at EOB, Patient required CGA to sit to prevent fall risk. Patient required TD to complete EOB-> supine. Left Patient sitting
--- NOTE | 2023-06-11 09:47 | HMH.PTEV ---
Physical Therapy Evaluation Rehab PT IP Evaluation Start: 06/10/23 17:38 Freq: ONCE Status: Active Protocol: Document 06/11/23 09:37 SOLEDAD (Rec: 06/11/23 09:47 SOLEDAD [id number]) Subjective/History History History Patient is a 57 year old female admitted to [facility] 06/10/23 secondary to pain with urination/UTI. Patient was previously receiving home health nursing, but has had difficulty receiving services per patient report. She has a L BKA and paralysis of the RLE. Subjective Subjective I'm just having a hard time with nursing getting my medications right. I would like to go back to a shelter. Rehab PT IP Eval Objective Appearance Patient Behavior Appropriate,Cooperative Patient Orientation Person,Place,Day of Week Difficulty following instructions none Speech Pattern Clear,Appropriate Ambulation Patient Able to Ambulate No Balance Ability to Arise Unable Sitting Balance Leans or slides in chair Dynamic Sitting Balance Ability Poor Transfers Bed Transfer Ability Total/Dependent (100%) ROM All Extremities PT ROM Status ABN MMT All Extremities PT MMT ABN Rehab PT IP prob,goals,plan Problems Date of Evaluation: 06/11/23 PT IP Problems Bed Mobility,Transfers,Gait, Balance,Self care,Safety Rehab Potential Rehab Potential Poor Equipment Needs Assistive Devices None / NA Plan PT Intervention Plan Bed Mobility,Transfers,Self care,Safety,Therapeutic Exercise PT Plan Frequency BID Duration LOS Discharge Goals Bed Transfer Ability Maximum x 2 (75% assist) Discharge Plan PT Discharge Plan Once found medically stable by MD, PT suggests discharge to SNF for further rehablilitation. G -code Required No Eval Complexity Eval Charge Codes 26642 - High Complexity G Codes PT Current Status Subsequent PT/OT Status PT Current Status Modifier CM-At least 80% but less than 100% impaired, limited or restricted
--- NOTE | 2023-06-11 09:55 | SW/DCPLANNER ---
Addendum entered by [facility] 06/13/23 13:26: Patient has been approved for SNF level of care. Addendum entered by [facility] 06/13/23 12:47: Ursula martin/ [facility] stated they can accept this patient today. Ursula stated that auth has not been completed at this time but due to patient being agreeable to [facility] pending they could accept today. I have updated MD and patient. Addendum entered by [facility] 06/13/23 07:44: Patient's insurance is requiring a MD peer to peer for SNF level of care: I have relayed this message to Dr Llamas this AM. Addendum entered by [facility] 06/12/23 13:22: Per [facility] information has been sent to Information Assurance Officer for precert. Addendum entered by [facility] 06/11/23 13:43: Ursula martin/ [facility] stated that she is able to accept this patient. Patient is agreeable to [facility] ([facility] and [facility] not able to accept and [facility] has multiple concerns) and precert has been started. I will continue to follow up with patient, MD and [facility]. Addendum entered by [facility] 06/11/23 11:14: Farrukh martin/ [facility] is unable to accept this patient. Patient is agreeable for me to fax information to the following facilities: [facility], [facility], [facility] and [facility]. Original Note: PT/OT evaluated patient and recommended SNF level of care. Patient stated that she resides at home alone and is agreeable to placement. Patient expressed an interest in [facility] and stated that she spoke with this facility prior to hospital admission. Patient information has been faxed to Farrukh martin/ [facility]. Discharge date is unknown at this time. I will continue to follow up with Farrukh regarding referral.
[2023-06-11 11:29] LABS: POC Glucose,Bedside 146 (70-110)
[2023-06-11 17:26] LABS: POC Glucose,Bedside 110 (70-110)
[2023-06-11 20:26] LABS: POC Glucose,Bedside 137 (70-110)
[2023-06-12] VITALS (9 sets, daily range): BP systolic 111–144; BP diastolic 69–75; PULSE 69–83; RESP 16–20; TEMP 36.7–36.9; O2SAT 91–98; BMI 29.3
--- NOTE | 2023-06-12 02:21 | PC.NURSE ---
PATIENT RESTING QUIETLY. HOB ELEVATED 30 DEGREES. VS STABLE/AFEBRILE. NO FURTHER C/O PAIN VOICED. WAS MEDICATED WITH NORCO 7.5 MG PO AT 2130.
--- NOTE | 2023-06-12 05:15 | PC.NURSE ---
PATIENT IS AN OLD CVA WITH RIGHT HEMIPLEGIA. EXTREME WEAKNESS IN RIGHT ARM. CAN BARELY MOVE FINGERS. UNABLE TO MOVE RIGHT LEG. HAS LEFT BKA. HAS USE OF LEFT ARM/HAND. REQUIRES ASSIST X 2 FOR ADLs. MEPILEX INTACT TO COCCYX.
--- NOTE | 2023-06-12 05:58 | PC.NURSE ---
patient requesting nystatin oint and calmoseptine for excoriated area to buttocks/coccyx. Krzysztof Wang NP notified.
[2023-06-12 07:37] LABS: Thyroid Stimulating Hormone 0.21 uIU/mL (0.465-4.68)
--- NOTE | 2023-06-12 12:05 | EXP.PN ---
Subjective *Date: 06/12/23 *Time: 12:05 Interval history: No acute events overnight she has had some discomfort at her bottom she hasn't had a bowel movement and has had intermittent nausea Exam Data for Last 24 hours Vital signs and Labs for Last 24 Hours: Temp Pulse Resp BP Pulse Ox O2 Del Method O2 Flow Rate 98.0 F 72 16 111/69 93 L Nasal Cannula 2 06/12/23 08:00 06/12/23 11:21 06/12/23 08:00 06/12/23 08:00 06/12/23 11:21 06/12/23 11:21 06/12/23 11:21 Laboratory Results - last 24 hr 06/11/23 17:14: POC Glucose 110 06/11/23 20:17: POC Glucose 137 H 06/12/23 06:10: TSH 0.21 L I & O for Last 24 hours: Intake & Output 06/09/23 06/10/23 06/11/23 06/12/23 23:59 23:59 23:59 23:59 Intake Total 1280 / 1520 720 / 720 Output Total 0 / 0 775 / 775 200 / 200 Balance 0 / 140 505 / 745 520 / 520 Weight 86.863 kg 89.63 kg 89.811 kg Microbiology Reports for the Last 24 Hours: Microbiology 06/10/23 16:28 Urine,Catheterized Urine Culture - Preliminary Constitutional Constitutional: no acute distress *Routine HEENT Exam Head: Present normocephalic Eye: Present EOMI and PERRL ENT: Present mucous membranes moist *Routine Neck Exam Neck: Present supple; Absent lymphadenopathy *Routine Respiratory Exam Respiratory: Present CTA bilaterally *Routine Cardiovascular Exam Cardiovascular: Present RRR *Routine Abdominal Exam Abdominal: Present soft and normoactive bowel sounds; Absent tenderness *Routine Extremities Exam Extremities: Absent cyanosis, clubbing or edema Comments: L BKA *Routine Skin Exam Skin: Present warm; Absent rash *Routine Neurological Exam Neurological: Present alert and oriented X3 Assessment and Plan *Assessment and plan (1) UTI (urinary tract infection): Status: Acute Qualifiers: Hematuria presence: without hematuria Urinary tract infection type: site unspecified Qualified Code(s): N39.0 - Urinary tract infection, site not specified Category: Medical Code(s): N39.0 - Urinary tract infection, site not specified (2) Hypokalemia: Status: Acute Category: Medical Code(s): E87.6 - Hypokalemia (3) Type 2 diabetes mellitus with diabetic neuropathy, with long-term current use of insulin: Status: Chronic Category: Medical Code(s): E11.40 - Type 2 diabetes mellitus with diabetic neuropathy, unspecified; Z79.4 - intermediate manager (current) use of insulin (4) Hyperglycemia due to type 2 diabetes mellitus: Status: Acute Qualifiers: Diabetes mellitus bed bug exterminator insulin use: without jail use Qualified Code(s): E11.65 - Type 2 diabetes mellitus with hyperglycemia Category: Medical Code(s): E11.65 - Type 2 diabetes mellitus with hyperglycemia (5) CAD (coronary artery disease): Status: Acute Qualifiers: Coronary Disease-Associated Artery/Lesion type: unspecified vessel or lesion type [place] vs. transplanted heart: [place] heart Associated angina: without angina Qualified Code(s): I25.10 - Atherosclerotic heart disease of [place] coronary artery without angina pectoris Category: Medical Code(s): I25.10 - Atherosclerotic heart disease of [place] coronary artery without angina pectoris (6) COPD (chronic obstructive pulmonary disease): Status: Chronic Qualifiers: COPD type: unspecified COPD Qualified Code(s): J44.9 - Chronic obstructive pulmonary disease, unspecified Category: Medical Code(s): J44.9 - Chronic obstructive pulmonary disease, unspecified (7) CVA (cerebral vascular accident): Status: Acute Qualifiers: CVA mechanism: unspecified Qualified Code(s): I63.9 - Cerebral infarction, unspecified Category: Medical Code(s): I63.9 - Cerebral infarction, unspecified (8) Immobility: Status: Acute Category: Medical Code(s): Z74.09 - Other reduced mobility (9)
[2023-06-12 12:30] LABS: POC Glucose,Bedside 176 (70-110)
--- NOTE | 2023-06-12 14:37 | DIET.NUTRFU ---
Assessed pt's nutritional status today d/t PMH and recent wt loss. Pt reports UBW of 300#, CBW 195# with a majority of wt loss occurring in the last 3 months d/t poor appetite because of depression and very little food intake. Pt reports that her appetite has improved some since admission and she has been consuming 75% of meals. Will add yogurt to all trays as this aligns with pt preferences as a source of additional protein. Pt also reports presence of sacral wound which is currently covered by a dressing and has not been staged, notified nursing. Pt reports LBM was >5 days prior, constipation is normal for her and she takes miralax regularly at home. Bowel regimen in place. Pt meets criteria for severe PCM d/t 22% wt loss in the last month, meeting <50% of estimated needs for the last month, presence of skin breakdown and poor mobility. Will notify provider. Provided nutritional instruction on increasing energy and protein intake, optimal sources of carbohydrates and fiber.
[2023-06-12 21:11] LABS: POC Glucose,Bedside 189 (70-110)
[2023-06-13] VITALS: O2SAT 93
[2023-06-13 04:00] VITALS: BP 124/70; PULSE 90; RESP 18; TEMP 36.8; O2SAT 93; BMI 29.5
--- NOTE | 2023-06-13 05:12 | PC.NURSE ---
HAS BEEN MEDICATED TWICE FOR PAIN RIGHT HIP AND LOWER BACK RATED 6-7/10. VSs STABLE/AFEBRILE. COUGHS EASILY WHEN SWALLOWING WATER. IS CURRENTLY ON 02 AT 2 LNC. 02 SATS DROP WHEN SLEEPING AND 02 IS OFF.
[2023-06-13 05:57] LABS: POC Glucose,Bedside 197 (70-110)
[2023-06-13 06:42] VITALS: PULSE 82; PULSE 86; O2SAT 92
--- NOTE | 2023-06-13 07:30 | PC.NURSE ---
Report received. Patient sitting up in bed, leaned to right side, eating breakfast. Left BKA noted on assessment.
[2023-06-13 08:00] VITALS: BP 132/70; PULSE 90; RESP 18; TEMP 36.9; O2SAT 93
--- NOTE | 2023-06-13 11:31 | HMH.PTWOUND ---
Rehab Inpt Wound Evaluation Rehab IP Wound Evaluation Start: 06/12/23 16:38 Freq: ONCE Status: Active Protocol: Document 06/13/23 11:12 HWADE (Rec: 06/13/23 11:30 HWADE [id number]) Rehab PT Wound Assessment Subjective Subjective Pt presents supine in bed, pleasant and agreeable to PT IP Wound Evaluation. Pt reports 6/10 pain from her bottom. Pt reports she has had the wound for ~ 6 weeks. Pt reports that she spends most of her day sitting. Pt reports she has tried to put many different creams on it at home . Wound Sacrum Wound Type Pressure Ulcer Is This a Chronic Wound Yes Wound Staging Stage II Query Text:Stage I - Unbroken, red skin, no blanching. Stage II - Skin broken, superficial skin loss involving epidermis alone or also dermis. Partial loss of skin layers. Stage III - Pressure area involves epidermis, dermis and subcutaneous tissue, full thickness skin loss. Stage IV - Pressure area involves epidermis, subcutaneous tissue, bone and other supportive tissue. Full thickness skin loss with extensive destruction of underlying tissue and structures. Wound Length (cm) 5 Wound Width (cm) 2 Wound Depth (cm) 0.1 Wound Bed Appearance Beefy Red Percentage Granulated (%) 100 Percentage of Slough (%) 0 Percentage of Eschar (Black) (%) 0 Percentage of Eschar (Yellow) (%) 0 Percentage of Eschar (Brown) (%) 0 Wound Margins Description Well Defined Surrounding Tissue Appearance [place] Wound Drainage Description Serosanguineous Drainage Amount Small Dressing Status Dry & Intact Primary Dressing optifoam gentle sacral dressing Wound Debridement Method Gauze Wound Debridement Amount of Tissue Minimal Removed Wound Debridement Result Healthy Tissue Revealed Dressing Change Patient Tolerance Tolerated Well Plan/Recommendation Comment 2 wounds present on L/R side of sacrum. L wound measures [id number]/ [id number] wound measures 3cm/ 2.2cm. Wound cleansed with gauze and saline, applied opt
[2023-06-13 13:08] VITALS: PULSE 82; PULSE 88
--- NOTE | 2023-06-13 13:48 | EXP.DC.SUM ---
General Admission date:: 06/10/23 Discharge date: 06/13/23 HPI HPI HPI: This patient is a 57-year-old female with a history of morbid obesity, CVA, CAD, PAD status post L BKA, COPD on home oxygen, type 2 diabetes, hypertension, hyperlipidemia, hypertensive heart disease, and chronic debility presenting to the emergency department for evaluation because she states that she had abnormal labs with her home health nurse and they told her to go to the ER for antibiotics for a UTI. This patient presented with referred burning sensation when urinating. Patient unable to care for self at home. Has been having home health. admitted for further work-up and management. Hospital Course Hospital Course Hospital Course: This patient is a 57-year-old female with a history of morbid obesity, CVA, CAD, PAD status post L BKA, COPD on home oxygen, type 2 diabetes, hypertension, hyperlipidemia, hypertensive heart disease, and chronic debility presenting to the emergency department for evaluation because she states that she had foul smelling urine and intermittent dysuria over 2-3 days. #UTI #history of multi-drug resistant UTI #stage 2 sacral decubitus ulcers #hypothyroidism The patient received Rocephin, followed by IV ertapenem. Urine culture grew >100K proteus mirabilus resistent to ertapenem and sensitive to ceftriaxone so ertapenem was discontinued and she was re-started on ceftriaxone. She received 2 days of Rocephin and will need to complete 5 more doses starting 06/14/2023. Her tsh is low at 0.21, I decreased her levothyroxine from 150 to 125mcg daily and this will need to be followed in the outpatient setting. She will be discharging to [facility] for PT/OT/usp. She will need wound care for her sacral decubitus ulcers. Exam Data for Last 24 hours Vital signs and Labs for Last 24 Hours: Temp Pulse Resp BP Pulse Ox O2 Del Method O2 Flow Rate 98.5 F 82 18 132/70 93 L Room Air 2 06/13/23 08:00 06/13/23 13:08 06/13/23 08:00 06/13/23 08:00 06/13/23 08:00 06/13/23 08:00 06/13/23 07:29 Laboratory Results - last 24 hr 08/03/23 20:26: POC Glucose 189 H 06/13/23 05:46: POC Glucose 197 H I & O for Last 24 hours: Intake & Output 06/10/23 06/11/23 06/12/23 06/13/23 23:59 23:59 23:59 23:59 Intake Total 1280 / 1520 1800 / 2520 960 / 960 Output Total 0 / 0 775 / 775 1250 / 1250 550 / 550 Balance 0 / 140 505 / 745 550 / 1270 410 / 410 Weight 86.863 kg 89.63 kg 89.811 kg 90.435 kg Constitutional Constitutional: no acute distress *Routine HEENT Exam Head: Present normocephalic Eye: Present EOMI and PERRL ENT: Present mucous membranes moist *Routine Neck Exam Neck: Present supple; Absent lymphadenopathy *Routine Respiratory Exam Respiratory: Present CTA bilaterally *Routine Cardiovascular Exam Cardiovascular: Present RRR *Routine Abdominal Exam Abdominal: Present soft and normoactive bowel sounds; Absent tenderness *Routine Extremities Exam Extremities: Absent cyanosis, clubbing or edema Comments: L BKA *Routine Skin Exam Skin: Present warm; Absent rash Comments: two superficial sacral decubitus ulcers. approximately 2cm and 1cm. 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 Results called to: JUANITORUMP at 1007 by [facility]. Organism 1 Proteus mirabilis [place] Count >100,000 CFU/ml P mirabili RX M.I.C. --- --------- Amikacin S <=8 Ampicillin R 16
--- NOTE | 2023-06-13 14:02 | DIET.NUTRFU ---
RD consulted for pt d/t Jefe score and presence of stage II sacral ulcer. Pt meets criteria for PCM d/t 22% wt loss in the last month, meeting <50% of estimated needs for the last month, presence of skin breakdown and poor mobility. Pt was educated on importance of increasing protein intake, sources of protein, and she requested yogurt to be added to all meals to aid in meeting protein needs and align with her preferences. Pt reports that her appetite has improved since admission and has been consuming 75% of meals on average. Wt has increased from 87 to 90kg since admit. Labs reviewed, unremarkable. Will continue to monitor patient's nutritional status and intervene as needed.
--- NOTE | 2023-06-13 14:58 | PC.NURSE ---
Report called SHARRI Pichardo at [facility]. Ambulance called for transport.
--- NOTE | 2023-06-14 09:54 | PC.NURSE ---
detention called and stated they did not receive prescriptions for klonopin, hydrocodone and gabapentin. was made aware of this and stated he would send the prescriptins
== END 2023-06-13 16:43 ==
LOC: ER 17:32 → 2ND 18:38
PROVIDERS: Admitting Provider Internal Medicine; Emergency Provider Emergency Medicine; PCP Emergency Medicine; Visit Provider Internal Medicine
DX: N39.0 Urinary tract infection, site not specified (principal); E87.6 Hypokalemia; E11.40 Type 2 diabetes mellitus with diabetic neuropathy, unspecified; Z79.4 Long term (current) use of insulin; E11.65 Type 2 diabetes mellitus with hyperglycemia; I25.10 Atherosclerotic heart disease of native coronary artery without angina pectoris; J44.9 Chronic obstructive pulmonary disease, unspecified; Z89.512 Acquired absence of left leg below knee; F41.9 Anxiety disorder, unspecified; E66.9 Obesity, unspecified; F17.200 Nicotine dependence, unspecified, uncomplicated; Z99.81 Dependence on supplemental oxygen; Z79.899 Other long term (current) drug therapy; I11.9 Hypertensive heart disease without heart failure; I70.213 Atherosclerosis of native arteries of extremities with intermittent claudication, bilateral legs
CPT/HCPCS: G0378; 36415; 71045; 80048; 80053; 81001; 82962; 83605; 84443; 85025; 87086; 87088; 87186; 94640; 97110; 97140; 97163; 97165; 97530; 99285; J0696; J1335; J2405

== ENCOUNTER → 2023-08-01 20:37 | Outpatient (CLI) | payer MEDICARE, MEDICAID, SELFPAY | PROVIDERS: PCP Emergency Medicine; Visit Provider Emergency Medicine | DX: R82.90 Unspecified abnormal findings in urine (principal); B96.29 Other Escherichia coli [E. coli] as the cause of diseases classified elsewhere | CPT/HCPCS: 87086; 87088; 87186 ==

== ENCOUNTER 2023-08-04 14:36 | Observation (INO) | payer MEDICARE, MEDICAID, SELFPAY ==
[2023-08-04 14:37] VITALS: BP 126/68; PULSE 78; RESP 23; TEMP 36.8; O2SAT 98; BMI 34.2
[2023-08-04 15:00] VITALS: BMI 32.3
[2023-08-04 15:01] VITALS: BP 116/61; PULSE 77; RESP 16; O2SAT 98
[2023-08-04 15:15] LABS: Basophils # 0.1 K/mm3 (0-0.2); Basophils % 0.7 % (0.1-2.0); Chloride 99 mmol/L (98-107); Eosinophils # 0.3 K/mm3 (0.0-0.4); Eosinophils % 3.2 % (0.1-12.0); Hematocrit 40.5 % (37.0-47.0); Hemoglobin 12.5 g/dL (12.2-16.2); Lymphocytes # 2.3 K/mm3 (0.7-4.5); Mean Corpuscular HGB Conc 30.7 g/dL (31.8-35.4); Mean Corpuscular Hemoglobin 30.7 pg (27.0-31.2); Mean Platelet Volume 9.1 fl (7.4-10.4); Monocytes # 0.3 K/mm3 (0.1-1.0); Monocytes % 3.7 % (1.7-9.3); Neutrophils # 5.6 K/mm3 (1.8-7.8); Neutrophils % 65.4 % (37.0-80.0); Platelet Count 325 K/mm3 (142-424); Red Blood Count 4.05 M/mm3 (4.20-5.40); Sodium 142 mmol/L (136-145); White Blood Count 8.5 K/mm3 (4.8-10.8)
[2023-08-04 15:16] LABS: Potassium 4.6 mmoL/L (3.5-5.1)
[2023-08-04 15:18] LABS: Alanine Aminotransferase 18 U/L (12-78); Albumin Level 3.7 g/dl (3.5-5.0); Alkaline Phosphatase 129 U/L (38-126); Anion Gap 11.6 mEq/L (5-15); Aspartate Amino Transferase 29 U/L (14-36); Blood Urea Nitrogen 59 mg/dl (7-17); Carbon Dioxide 36 mmol/L (22.0-30.0); Creatinine Clearance Estimated 97 mL/min (50-200); Estimated Glomerular Filt Rate 57 ml/min (>60); GFR (African American) 69 ML/MIN (>60); Globulin 3.6 g/dL (1.3-3.2); Total Protein,Serum 7.3 g/dl (6.3-8.2)
[2023-08-04 15:19] LABS: Calcium 9.4 mg/dl (8.4-10.2); Glucose 257 mg/dl (74-100)
[2023-08-04 15:20] LABS: Bilirubin,Total 0.1 mg/dl (0.2-1.3)
--- NOTE | 2023-08-04 15:58 | XR_ITS ---
FINAL REPORT CLINICAL HISTORY: soa FINDINGS: A portable view of the chest was obtained. No prior exams available for comparison. Cardiac and mediastinal silhouettes are within normal limits. There is right basilar opacity. There is no pleural effusion or pneumothorax. IMPRESSION: Right basilar opacity could represent atelectasis or pneumonia. Reviewed, Interpreted and Dictated by Laurita Powell MD Transcribed by Bruno Jaimes Authenticated and [facility]
--- NOTE | 2023-08-04 16:02 | HMH.EDABDPAI ---
Discharge Plan Disposition Patient Disposition: Admitted Clinical Impressions Clinical Impression: UTI (urinary tract infection), Declining functional status Discharge ED Provider: Zain Garrett Abdominal Pain HPI General Chief Complaint: Abdominal Pain Stated Complaint: uti Time Seen by Provider: 08/04/23 15:07 Mode of Arrival: Family Vehicle Source of Information: Patient Limitations: No Limitations Description of Symptoms (Recalled from ER Triage Doc. by RN): Pt c/o suspected UTI. States she has to be cathed or is incontinent d/t previous CVA's History of Present Illness HPI narrative: Patient is a 57-year-old female with past medical history of CVA with only left upper extremity use, left lower extremity amputee, right-sided paralysis who presents emergency department for evaluation of urinary tract symptoms. Patient recently presented to PCP where she was diagnosed with a urinary tract infection that was resistant to most drugs. She is pending port placement and coordination of care for outpatient infusions with home health which are to begin on Friday. However patient has become intermittently confused and hr coordinator at bedside felt unsafe transporting her here. After conversation with hospital staff she was instructed to present here for evaluation and coordination of care. Patient denies abdominal pain. No other acute complaints at this time. Related Data Home Medications Medication Instructions Recorded Confirmed aspirin 81 mg tablet,delayed 81 mg PO DAILY heart health 03/07/22 08/05/23 release rivaroxaban 2.5 mg tablet 2.5 mg PO BID DVT prophylaxis 05/07/22 08/05/23 atorvastatin 80 mg tablet 80 mg PO HS Cholesterol 06/10/23 08/05/23 blood sugar diagnostic (True 06/10/23 08/05/23 Metrix Glucose Test Strip) blood-glucose meter (Advanced 06/10/23 08/05/23 Glucose Meter) carvedilol 3.125 mg tablet 3.125 mg PO BID High Blood Pressure 06/10/23 08/05/23 cholecalciferol (vitamin D3) 1,250 1,250 mcg PO WEEKLY Supplement 06/10/23 08/05/23 mcg (50,000 unit) capsule cholecalciferol (vitamin D3) 50 50 mcg PO DAILY Supplement 06/10/23 08/05/23 mcg (2,000 unit) capsule duloxetine 60 mg capsule,delayed 60 mg PO DAILY Depression 06/10/23 08/05/23 release furosemide 40 mg tablet 40 mg PO DAILY Fluid 06/10/23 08/05/23 insulin NPH-regular 70-30 U-100 35 unit SQ BID Diabetes 06/10/23 08/05/23 insulin 100 unit/mL subcutaneous pen (Novolin 70-30 FlexPen U-100 Insulin) insulin glargine 100 unit/mL 10 unit SQ HS Diabetes 06/10/23 08/05/23 subcutaneous solution (Lantus U-100 Insulin) lancets 30 gauge (Advanced Travel 06/10/23 08/05/23 Lancets) levothyroxine 150 mcg tablet 150 mcg PO DAILY thyroid 06/10/23 08/05/23 nystatin 100,000 unit/gram topical 1 applic topical TID skin 06/10/23 08/05/23 powder irritation lisinopril 10 mg tablet 10 mg PO DAILY High Blood Pressure 06/11/23 08/05/23 melatonin 10 mg tablet 10 mg PO HS Supplement/Sleep 06/11/23 08/05/23 budesonide-formoterol HFA 160 See Rx Instructions .Route 08/05/23 08/05/23 mcg-4.5 mcg/actuation aerosol .COMPLEX Breathing Problems inhaler (Symbicort) Previous Rx's Medication Instructions Recorded acetaminophen 500 mg tablet 1,000 mg PO Q6HP PRN As Needed For 12/11/20 (Tylenol Extra Strength) Fever Or Pain #120 tabs ipratropium bromide 0.02 % 2.5 ml inhalation Q6H PRN 08/02/22 solution for inhalation shortness of breath or wheezing #150 mL sennosides 8.6 mg tablet 17.2 mg PO HS constipation #60 tabs 02/21/23 buspirone 15 mg tablet 15 mg PO TID Anxiety #90 tabs 05/09/23 albuterol sulfate 90 mcg/actuation See Rx Instructions .Route 07/16/23 aerosol inhaler .COMPLEX #18 ea ondansetron 4 mg disintegrating See Rx Instructions .Route 07/22/23 tablet .COMPLEX #20 tabs clonazepam 0.5 mg tablet 0.5 mg PO TID Anxiety #90 tabs 07/23/23 gabapentin 600 mg tablet 600 mg PO QID Pain #120 tabs 07/23/23 hydrocodone 7.5 mg-acetaminophen 1 tab PO
[2023-08-04 17:04] LABS: Microscopic,Cath URINE MICROSCOPIC (MICROSCOPIC)
--- NOTE | 2023-08-04 17:18 | EXP.HP ---
History of Present Illness *Admission Date: 08/04/23 *Reason for visit:: Worsening weakness, UTI *History of present illness: Ms. Pitt is a 57-year-old female with complex history of diabetes, hypertension, multiple CVAs, obesity, urinary incontinence. She presented to the ER because of worsening weakness and confusion. Denies any dysuria or flank pain. No fever. Does have some mild nausea but no anthony emesis or diarrhea. Presented to her PCP this past week where urine sample was obtained showing ESBL E. coli. Has been awaiting placement of a PICC line and establishment with home health and IV antibiotics but unfortunately her condition has continued to decline. Presented today due to family's inability to get her out of bed. Patient has history of stroke and right-sided hemiparesis. Gets around in a wheelchair. Complicated by left BKA. Unable to assist with transitioning over the past 24 hours and showing decline. Presented with assistant to the president to the ER. In the ER, repeat UA obtained, CBC with normal white cell count. However given the nature of patient's infection, need for PICC line, and need for IV antibiotics for ESBL UTI, ER consulted medicine for admission. Patient admitted to observation for further management On evaluation on the floor, patient is pleasant and has her assistant to the president at bedside. Denies any chest pain or shortness of breath. Reports wearing oxygen at night (2 L). [facility] Disclaimer: The information contained in this section may have been updated after the patient was seen, as this information can be updated by other users. Medical History (Updated 08/04/23 @ 18:57 by Maico Urbina MD) Abnormal ankle brachial index (NICOLAS) Abnormal nuclear stress test Acute bronchitis Amputation of one or more toes Angina pectoris Anxiety Anxiety and depression BKA stump complication Blister of foot CAD (coronary artery disease) CAD (coronary artery disease) Cellulitis of left foot Cellulitis of right foot CHF (congestive heart failure) Claudication Contusion of ribs COPD with exacerbation Coronary arteriosclerosis COVID-19 CVA (cerebral vascular accident) Decreased pedal pulses Dehydration Depression Diabetes mellitus Diabetic foot Diabetic foot infection Diabetic Foot Ulcer Diabetic neuropathy, type II diabetes mellitus Diabetic ulcer of right heel associated with diabetes mellitus due to underlying condition, limited to breakdown of skin Diastolic dysfunction Diastolic dysfunction Dyspnea Edema of left lower extremity Encounter for wound care Encounter for wound care Fall Foot abscess, right Gangrene of left foot History of amputation of left great toe History of CVA (cerebrovascular accident) History of left below knee amputation HTN (hypertension) Hyperlipidemia Hypertensive heart disease without heart failure Hypotension Hypothyroidism Hypoxia Infected wound Keratosis Left leg swelling 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 Left-sided weakness Low back pain Microalbuminuric diabetic nephropathy MRSA (methicillin resistant staph aureus) culture positive Nasal fracture Neuropathy Obesity Obesity Onychocryptosis Onychodystrophy Onychogryphosis Onychomycosis Onychomycosis PAD (peripheral artery disease) Pain due to onychomycosis of toenail 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) Peripheral arterial occlusive disease Pre-op evaluation Pre-ulcerative calluses PVD (peripheral vascular disease) Pyelonephritis Recent cerebrovascular accident (CVA) Respiratory failure Right femoral fracture Right flaccid hemiplegia Right sided weakness Sepsis Smoker SOB (shortness of breath) Syncope Tibial plateau fracture, right Ulcer of left foot due to type 2 diabetes mellitus Ulcer of right foot due to type 2 diabetes mellitus Ulcer of right foot due to type 2 diabetes mellitus Urinary tract infection due to Klebsiella species Urinary tract infection due to Proteus Varicose veins of
[2023-08-04 17:30] VITALS: BP 112/72; PULSE 68; RESP 20; TEMP 36.7; O2SAT 98
--- NOTE | 2023-08-04 17:46 | PC.NURSE ---
advised HARJEET Reynoso RN of admission
[2023-08-04 17:48] LABS: Appearance,Urine/Cath CLEAR (Clear); Bilirubin,Cath Negative (Negative); Blood, Urine/Cath 2+ (Negative); Color,Urine/Cath YELLOW (Yellow); Glucose,Urine/Cath (UA) Negative (Negative); Ketones,Urine/Cath Negative (Negative); Leukocyte Esterase,Cath 3+ (Negative); Nitrate,Cath Negative (Negative); PH,Urine/Cath 6.5 (5.0-8.5); Protein,Urine/Cath 1+ (Negative); Urobilinogen,Cath 0.2 EU/dl (0.2)
[2023-08-04 17:49] LABS: Bacteria,Urine/Cath 4+ /lpf
--- NOTE | 2023-08-04 17:51 | PC.NURSE ---
arrived to floor by stretcher from ED
[2023-08-04 17:58] VITALS: BP 132/74; PULSE 77; RESP 20; TEMP 36.6; O2SAT 97; BMI 31.6
--- NOTE | 2023-08-04 17:58 | PC.NURSE ---
PT GONE UP FOR ADMISSION
--- NOTE | 2023-08-04 18:19 | PC.NURSE ---
PT UNABLE TO CONFIRM HOME MEDICATIONS. PT AT [facility] TO BRING IN HOME MEDICATIONS TOMORROW.
[2023-08-04 19:16] LABS: Hemoglobin A1C 8.3 % (4.0-6.0)
[2023-08-04 19:47] LABS: Thyroid Stimulating Hormone 0.04 uIU/mL (0.465-4.68)
[2023-08-04 20:00] VITALS: BP 124/64; PULSE 84; RESP 18; TEMP 36.6; O2SAT 92
[2023-08-04 22:17] LABS: POC Glucose,Bedside 116 (70-110)
[2023-08-05 01:14] VITALS: PULSE 87
--- NOTE | 2023-08-05 01:25 | PC.NURSE ---
purewick place on pt at 0100 r/t immobility, incontinence, and open pressure area on coccyx.
[2023-08-05 04:00] VITALS: BP 112/56; PULSE 74; RESP 16; TEMP 36.7; O2SAT 98; BMI 31.9
[2023-08-05 05:21] LABS: POC Glucose,Bedside 121 (70-110)
[2023-08-05 07:40] VITALS: BP 133/64; PULSE 87; RESP 18; TEMP 36.8; O2SAT 93
[2023-08-05 08:00] VITALS: O2SAT 98
--- NOTE | 2023-08-05 08:16 | HMH.PHAINT1 ---
Pharmacy Intervention Comments: MEDICATION RECONCILIATION COMPLETED ON PATIENT USING EXTERNAL FILL HISTORY FROM PHARMACY AND LIST FROM PCP OFFICE. -STEPHANIE NICKERSON, JENNYD
[2023-08-05 09:30] LABS: Basophils # 0.1 K/mm3 (0-0.2); Basophils % 1.1 % (0.1-2.0); Eosinophils # 0.4 K/mm3 (0.0-0.4); Eosinophils % 5.2 % (0.1-12.0); Hematocrit 44.6 % (37.0-47.0); Hemoglobin 13.7 g/dL (12.2-16.2); Lymphocytes # 2.4 K/mm3 (0.7-4.5); Lymphocytes % 32.8 % (10-50); Mean Corpuscular HGB Conc 30.8 g/dL (31.8-35.4); Mean Corpuscular Hemoglobin 31.2 pg (27.0-31.2); Mean Corpuscular Volume 101.5 fl (81-99); Mean Platelet Volume 9.3 fl (7.4-10.4); Monocytes # 0.3 K/mm3 (0.1-1.0); Monocytes % 4.2 % (1.7-9.3); Neutrophils # 4.1 K/mm3 (1.8-7.8); Neutrophils % 56.6 % (37.0-80.0); Platelet Count 250 K/mm3 (142-424); Red Blood Count 4.39 M/mm3 (4.20-5.40); White Blood Count 7.2 K/mm3 (4.8-10.8)
--- NOTE | 2023-08-05 09:56 | SW/DCPLANNER ---
Addendum entered by [facility] 08/05/23 11:06: Chuyita w/ [facility] stated that medication will be delivered today w/o a copay. I have updated Chuyita that home health services will begin tomorrow and she will call and updated patient's sister. Addendum entered by [facility] 08/05/23 10:57: Per Melanie martin/ [facility] services will start for this patient tomorrow 08/06/23. Addendum entered by [facility] 08/05/23 10:42: Patient's sister is agreeable to discharge plans. Patient information/order has been faxed to [facility] martin/ [facility] and [facility]. Patient will discharge home today. Original Note: I spoke w/ this patient regarding plans once medically stable for discharge. Patient recently discharged back home from [facility] w/ assistance from family. Patient will need IV antibiotics at time of discharge: patient is not interested in placement. Patient prefers to return home w/ family assistance and home health: prefers to use [facility]. Patient is agreeable to use [facility] for home IV antibiotics and has used this company in the past. I will call and speak w/ patient's sister (Ольга [phone]) regarding discharge plans. I will continue to follow up w/ patient/family, and home health.
[2023-08-05 09:58] LABS: Alanine Aminotransferase 22 U/L (12-78); Albumin Level 3.7 g/dl (3.5-5.0); Anion Gap 16.3 mEq/L (5-15); Aspartate Amino Transferase 30 U/L (14-36); Bilirubin,Total 0.3 mg/dl (0.2-1.3); Blood Urea Nitrogen 56 mg/dl (7-17); Calcium 9.9 mg/dl (8.4-10.2); Carbon Dioxide 28 mmol/L (22.0-30.0); Chloride 102 mmol/L (98-107); Creatinine Clearance Estimated 98 mL/min (50-200); Estimated Glomerular Filt Rate 65 ml/min (>60); GFR (African American) 78 ML/MIN (>60); Glucose 209 mg/dl (74-100); Magnesium 1.9 mg/dl (1.6-2.3); Potassium 5.3 mmoL/L (3.5-5.1); Sodium 141 mmol/L (136-145); Total Protein,Serum 7.1 g/dl (6.3-8.2)
[2023-08-05 09:59] LABS: Albumin/Globulin Ratio 1.1 (1.1-1.8); Alkaline Phosphatase 103 U/L (38-126); Globulin 3.4 g/dL (1.3-3.2)
[2023-08-05 10:32] LABS: POC Glucose,Bedside 197 (70-110)
--- NOTE | 2023-08-05 13:37 | XR_ITS ---
FINAL REPORT CLINICAL HISTORY: PICC LINE PLACEMENT COMPARISON: 08/04/2023 FINDINGS: A single PA view of the chest was obtained. There is no prior exam for comparison. The cardiac and mediastinal silhouettes are within normal limits. Left PICC line tip terminates in the SVC. There are low lung volumes with stable bibasilar atelectasis. There is no effusion or pneumothorax. IMPRESSION: Left PICC line tip terminates in the SVC. Reviewed, Interpreted and Dictated by Laurita Powell MD Transcribed by Darlene Prasad Authenticated and [facility]
--- NOTE | 2023-08-05 13:48 | EXP.PN ---
Subjective *Date: 08/05/23 *Time: 13:48 Interval history: The patient is seen and examined today. I am accompanied by nursing staff (Eloy). He reports that the patient remains afebrile with stable vital signs and saturating appropriately on room air with occasional 2 L via nasal cannula. She is awaiting PICC line placement. Her blood cultures identified no growth to date. Her morning electrolytes and creatinine are normal. Her morning CBC identifies a normal white blood cell count 8.5 and stable hemoglobin. Case management is assisting with home health care and IV antibiotic needs on discharge. She is tolerating her IV antibiotic therapy with no adverse events. Exam Data for Last 24 hours Vital signs and Labs for Last 24 Hours: Temp Pulse Resp BP Pulse Ox O2 Del Method O2 Flow Rate 98.3 F 87 18 133/64 98 Nasal Cannula 2 08/05/23 07:40 08/05/23 07:40 08/05/23 07:40 08/05/23 07:40 08/05/23 08:00 08/05/23 12:21 08/05/23 12:21 Laboratory Results - last 24 hr 08/04/23 14:45: WBC 8.5, RBC 4.05 L, Hgb 12.5, Hct 40.5, MCV 100.0 H, MCH 30.7, MCHC 30.7 L, RDW 15.0, Plt Count 325, MPV 9.1, Neut % (Auto) 65.4, Lymph % (Auto) 27.0, [place] % (Auto) 3.7, Eos % (Auto) 3.2, Baso % (Auto) 0.7, Neut # (Auto) 5.6, Lymph # (Auto) 2.3, [place] # (Auto) 0.3, Eos # (Auto) 0.3, Baso # (Auto) 0.1, Sodium 142, Potassium 4.6, Chloride 99, Carbon Dioxide 36 H, Anion Gap 11.6, BUN 59 H, Creatinine 1.00, Estimated Creat Clear 97, Estimated GFR 57 L, Est GFR ( Amer) 69, Glucose 257 H, Hemoglobin A1c 8.3 H, Lactate 2.0, Calcium 9.4, Total Bilirubin 0.1 L, AST 29, ALT 18, Alkaline Phosphatase 129 H, Total Protein 7.3, Albumin 3.7, Globulin 3.6 H, Albumin/Globulin Ratio 1.0 L, TSH 0.04 L 08/04/23 16:50: Urine Color Yellow, Urine Appearance Clear, Urine pH 6.5, Ur Specific [place] 1.020, Urine Protein 1+, Urine Glucose (UA) Negative, Urine Ketones Negative, Urine Blood 2+, Urine Nitrate Negative, Urine Bilirubin Negative, Urine Urobilinogen 0.2, Ur Leukocyte Esterase 3+ A, Urine RBC 3-5, Urine WBC 10-20 A, Ur Squamous Epith Cells None, Urine Bacteria 4+ A 08/04/23 20:03: POC Glucose 116 H 08/05/23 05:08: POC Glucose 121 H 08/05/23 09:00: WBC 7.2, RBC 4.39, Hgb 13.7, Hct 44.6, MCV 101.5 H, MCH 31.2, MCHC 30.8 L, RDW 15.0, Plt Count 250, MPV 9.3, Neut % (Auto) 56.6, Lymph % (Auto) 32.8, [place] % (Auto) 4.2, Eos % (Auto) 5.2, Baso % (Auto) 1.1, Neut # (Auto) 4.1, Lymph # (Auto) 2.4, [place] # (Auto) 0.3, Eos # (Auto) 0.4, Baso # (Auto) 0.1, Sodium 141, Potassium 5.3 H, Chloride 102, Carbon Dioxide 28, Anion Gap 16.3 H, BUN 56 H, Creatinine 0.90, Estimated Creat Clear 98, Estimated GFR 65, Est GFR ( Amer) 78, Glucose 209 H, Calcium 9.9, Magnesium 1.9, Total Bilirubin 0.3, AST 30, ALT 22, Alkaline Phosphatase 103, Total Protein 7.1, Albumin 3.7, Globulin 3.4 H, Albumin/Globulin Ratio 1.1 08/05/23 10:26: POC Glucose 197 H I & O for Last 24 hours: Intake & Output 08/02/23 08/03/23 08/04/23 08/05/23 23:59 23:59 23:59 23:59 Intake Total 640 / 1120 1200 / 1200 Output Total 0 / 0 Balance 640 / 1120 1200 / 1200 Weight 88.904 kg 90.22 kg Microbiology Reports for the Last 24 Hours: Microbiology 08/04/23 16:50 Urine,Catheterized Urine Culture - Preliminary Gram Negative Rods Constitutional Constitutional: no acute distress, obese, chronically ill appearing and cooperative *Routine HEENT Exam Head: Present normocephalic Eye: Present EOMI and PERRL ENT: Present mucous membranes moist *Routine Respiratory Exam Respiratory: Present rhonchi, normal respiratory effort and symmetric chest movement *Routine Cardiovascular Exam Cardiovascular: Present RRR, Normal S1 and Normal S2 *Routine Abdominal Exam Abdominal: Present soft and normoactive bowel sounds; Absent tenderness *Routine Extremities Exam Extremities: Present full ROM and normal capillary refill *Routine Skin Exam Skin: Present warm; Absent rash *Ro
--- NOTE | 2023-08-05 15:39 | EXP.DC.SUM ---
General Admission date:: 08/04/23 Discharge date: 08/05/23 HPI HPI HPI: Ms. Pitt is a 57-year-old female with complex history of diabetes, hypertension, multiple CVAs, obesity, urinary incontinence. She presented to the ER because of worsening weakness and confusion. Denies any dysuria or flank pain. No fever. Does have some mild nausea but no anthony emesis or diarrhea. Presented to her PCP this past week where urine sample was obtained showing ESBL E. coli. Has been awaiting placement of a PICC line and establishment with home health and IV antibiotics but unfortunately her condition has continued to decline. Presented today due to family's inability to get her out of bed. Patient has history of stroke and right-sided hemiparesis. Gets around in a wheelchair. Complicated by left BKA. Unable to assist with transitioning over the past 24 hours and showing decline. Presented with software publisher to the ER. In the ER, repeat UA obtained, CBC with normal white cell count. However given the nature of patient's infection, need for PICC line, and need for IV antibiotics for ESBL UTI, ER consulted medicine for admission. Patient admitted to observation for further management. On evaluation on the floor, patient is pleasant and has her software publisher at bedside. Denies any chest pain or shortness of breath. Reports wearing oxygen at night (2 L). Hospital Course Hospital Course Hospital Course: The patient was admitted to the medical floor with blood and urine cultures acquired. She was started on broad-spectrum IV antibiotic therapy with her identified history. Her urine culture identified ESBL organism. Imaging was acquired that identified concerns with pneumonia. Labs and inflammatory markers were trended. PT and OT evaluations were provided. The patient identified improvement and inquired about transition of care. We recommended transition to detention facility and she declined. She elected to go home with home health and IV antibiotic therapy. She understands the importance of following up with her PCP in 1 week. Case management assisted with discharge needs and home IV antibiotic therapy. Exam Data for Last 24 hours Vital signs and Labs for Last 24 Hours: Temp Pulse Resp BP Pulse Ox O2 Del Method O2 Flow Rate 98.3 F 87 18 133/64 98 Nasal Cannula 2 08/05/23 07:40 08/05/23 07:40 08/05/23 07:40 08/05/23 07:40 08/05/23 08:00 08/05/23 12:21 08/05/23 12:21 Laboratory Results - last 24 hr 08/04/23 14:45: WBC 8.5, RBC 4.05 L, Hgb 12.5, Hct 40.5, MCV 100.0 H, MCH 30.7, MCHC 30.7 L, RDW 15.0, Plt Count 325, MPV 9.1, Neut % (Auto) 65.4, Lymph % (Auto) 27.0, [place] % (Auto) 3.7, Eos % (Auto) 3.2, Baso % (Auto) 0.7, Neut # (Auto) 5.6, Lymph # (Auto) 2.3, [place] # (Auto) 0.3, Eos # (Auto) 0.3, Baso # (Auto) 0.1, Hemoglobin A1c 8.3 H, Lactate 2.0, TSH 0.04 L 08/04/23 16:50: Urine Color Yellow, Urine Appearance Clear, Urine pH 6.5, Ur Specific Emerson 1.020, Urine Protein 1+, Urine Glucose (UA) Negative, Urine Ketones Negative, Urine Blood 2+, Urine Nitrate Negative, Urine Bilirubin Negative, Urine Urobilinogen 0.2, Ur Leukocyte Esterase 3+ A, Urine RBC 3-5, Urine WBC 10-20 A, Ur Squamous Epith Cells None, Urine Bacteria 4+ A 08/04/23 20:03: POC Glucose 116 H 08/05/23 05:08: POC Glucose 121 H 08/05/23 09:00: WBC 7.2, RBC 4.39, Hgb 13.7, Hct 44.6, MCV 101.5 H, MCH 31.2, MCHC 30.8 L, RDW 15.0, Plt Count 250, MPV 9.3, Neut % (Auto) 56.6, Lymph % (Auto) 32.8, [place] % (Auto) 4.2, Eos % (Auto) 5.2, Baso % (Auto) 1.1, Neut # (Auto) 4.1, Lymph # (Auto) 2.4, [place] # (Auto) 0.3, Eos # (Auto) 0.4, Baso # (Auto) 0.1, Sodium 141, Potassium 5.3 H, Chloride 102, Carbon Dioxide 28, Anion Gap 16.3 H, BUN 56 H, Creatinine 0.90, Estimated Creat Clear 98, Estimated GFR 65, Est GFR ( Amer) 78, Glucose 209 H, Calcium 9.9, Magnesium 1.9, Total Bilirubin 0.3, AST 30, ALT 22, Alkaline Phosphatase 103, Total Protein 7.1, Albumin 3.7, Globulin 3.4 H, Albumin/Glob
--- NOTE | 2023-08-06 13:59 | CARE MANAGER ---
Called and spoke with patient to discuss recent discharge. HH was there and patient had no concerns voiced at time of call.
--- NOTE | 2023-08-06 17:57 | PC.NURSE ---
reviewed pts chart r/t urine culture result. pt admitted from ED on 08/04/23 pt d/c from second floor on 08/05/23 with home health for IV Ertampenam. Urine culture shows sensitive to Ertapenam
== END 2023-08-05 16:40 | disposition home health service (06) ==
LOC: ER 17:27 → 2ND 17:33
PROVIDERS: Emergency Medicine; Admitting Provider Internal Medicine Adolescent Medicine; Emergency Provider Emergency Medicine; Visit Provider Internal Medicine Adolescent Medicine
DX: N39.0 Urinary tract infection, site not specified (principal); B96.29 Other Escherichia coli [E. coli] as the cause of diseases classified elsewhere; Z16.12 Extended spectrum beta lactamase (ESBL) resistance; F44.4 Conversion disorder with motor symptom or deficit; R53.1 Weakness; F17.210 Nicotine dependence, cigarettes, uncomplicated; J44.9 Chronic obstructive pulmonary disease, unspecified; E11.40 Type 2 diabetes mellitus with diabetic neuropathy, unspecified; Z79.4 Long term (current) use of insulin; Z89.519 Acquired absence of unspecified leg below knee; F41.9 Anxiety disorder, unspecified; E03.9 Hypothyroidism, unspecified; I10 Essential (primary) hypertension; E66.01 Morbid (severe) obesity due to excess calories; Z68.41 Body mass index [BMI] 40.0-44.9, adult; Z79.899 Other long term (current) drug therapy
CPT/HCPCS: 36415; 36569; 71045; 80053; 81001; 82962; 83036; 83605; 83735; 84443; 85025; 87040; 87086; 87088; 87186; 94640; 99285; C1751; G0378; J2185

== ENCOUNTER 2023-11-18 16:53 | Observation (INO) | payer MEDICARE, MEDICAID, SELFPAY ==
[2023-11-18 16:53] VITALS: BP 97/54; PULSE 80; RESP 16; TEMP 36.8; O2SAT 92; BMI 29.5
--- NOTE | 2023-11-18 17:03 | XR_ITS ---
PROCEDURE INFORMATION: Exam: XR Chest Exam date and time: 11/18/2023 5:04 PM Age: 57 years old Clinical indication: Dyspnea TECHNIQUE: Imaging protocol: Radiologic exam of the chest. Views: 1 view. COMPARISON: CR XR CHEST PORTABLE PICC PLAC 08/05/2023 1:11 PM FINDINGS: Lungs: No evidence of acute pulmonary disease or infiltrates; lung kenney appear clear. Pleural spaces: No large effusion or pneumothorax. Heart/Mediastinum: No evidence of mediastinal widening or cardiac silhouette enlargement; the mediastinum and heart appear within normal limits for contour and size. Bones/joints: No evidence of acute osseous abnormalities within the visualized portions of the thoracic spine and ribs. Osseous structures appear appropriate for patient age. IMPRESSION: No dense parenchymal consolidation, pleural effusion, or pneumothorax.
--- NOTE | 2023-11-18 17:04 | HMH.EDGENADL ---
Discharge Plan Disposition Patient Disposition: Admitted Prescriptions Prescriptions: No Action ipratropium bromide 0.02 % solution 2.5 ml inhalation Q6H PRN (Reason: shortness of breath or wheezing) Qty: 150 2RF nystatin 100,000 unit/gram cream 1 applic topical TID Qty: 30 2RF cranberry 500 mg capsule 500 mg PO BID Rx Instructions: administer with meals ketoconazole 2 % cream 1 applic topical BID Qty: 60 0RF mupirocin calcium 2 % cream 1 applic topical QID Qty: 30 1RF zinc oxide 12 % cream 1 applic topical QID Qty: 57 1RF clonazepam 0.5 mg tablet 0.5 mg PO TID Qty: 90 1RF gabapentin 600 mg tablet 600 mg PO QID Qty: 120 1RF acetaminophen [Tylenol Extra Strength] 500 mg tablet 1,000 mg PO Q6HP PRN (Reason: As Needed For Fever Or Pain) Qty: 120 0RF sennosides 8.6 mg tablet 17.2 mg PO HS Qty: 60 2RF levothyroxine 150 mcg tablet 150 mcg PO DAILY Qty: 90 2RF ondansetron 4 mg tablet,disintegrating 4 mg PO Q8HP PRN (Reason: Nausea And Vomiting) Qty: 30 3RF aspirin [Enteric Coated Aspirin] 81 mg tablet,delayed release (DR/EC) 81 mg PO DAILY Qty: 90 3RF atorvastatin 80 mg tablet 80 mg PO HS Qty: 90 2RF Xarelto 2.5 mg tablet See Rx Instructions .ROUTE .COMPLEX Qty: 90 0RF Dose Instruction: TAKE ONE TABLET BY MOUTH TWICE A DAY FOR DVT PROPHYLAXIS Rx Instructions: TAKE ONE TABLET BY MOUTH TWICE A DAY FOR DVT PROPHYLAXIS Novolin 70-30 FlexPen U-100 100 unit/mL (70-30) insulin pen See Rx Instructions .ROUTE .COMPLEX Qty: 15 2RF Dose Instruction: INJECT 30 UNITS SUBCUTANEOUSLY TWICE A DAY Rx Instructions: INJECT 30 UNITS SUBCUTANEOUSLY TWICE A DAY polyethylene glycol 3350 [Miralax] 17 gram powder in packet 17 g PO DAILY Qty: 100 0RF ropinirole 0.25 mg tablet 0.25 mg PO HS Qty: 90 0RF Rx Instructions: administer 1-3 hours before bedtime dextromethorphan-guaifenesin [Adult Tussin Cough Congest DM] 10-100 mg/5 mL liquid 10 ml PO Q4-6H PRN (Reason: cough) Qty: 800 0RF famotidine 20 mg tablet 20 mg PO DAILY Qty: 90 3RF bupropion HCl [Wellbutrin SR] 150 mg tablet sustained-release 12 hr 150 mg PO DAILY 30 Days Qty: 30 2RF (DME) ReliOn Prime Test Strips Strip See Rx Instructions .Route Qty: 100 2RF Rx Instructions: As directed or bid quetiapine [Seroquel] 25 mg tablet 25 mg PO HS Qty: 30 2RF mirtazapine 30 mg tablet 30 mg PO HS Qty: 90 0RF hydrocodone-acetaminophen 7.5-325 mg tablet 1 tab PO Q6H Qty: 120 0RF lidocaine [Lidoderm] 5 % adhesive patch,medicated 1 patch topical DAILY Qty: 30 5RF Rx Instructions: leave on most painful area for up to 12 hrs buspirone 15 mg tablet See Rx Instructions .ROUTE .COMPLEX Qty: 90 5RF Dose Instruction: TAKE 1 TABLET BY MOUTH THREE TIMES A DAY FOR ANXIETY Rx Instructions: TAKE 1 TABLET BY MOUTH THREE TIMES A DAY FOR ANXIETY duloxetine 60 mg capsule,delayed release(DR/EC) 60 mg PO DAILY furosemide 40 mg tablet 40 mg PO DAILY insulin glargine [Lantus U-100 Insulin] 100 unit/mL solution 10 unit SQ HS (DME) blood-glucose meter [Advanced Glucose Meter] Misc See Rx Instructions .Route Rx Instructions: As directed carvedilol 3.125 mg tablet 3.125 mg PO BID Rx Instructions: must administer with a meal/food cholecalciferol (vitamin D3) 1,250 mcg (50,000 unit) capsule 1,250 mcg PO WEEKLY cholecalciferol (vitamin D3) 50 mcg (2,000 unit) capsule 50 mcg PO DAILY (DME) lancets [Advanced Travel Lancets] 30 gauge misc See Rx Instructions .Route Rx Instructions: Check sugar twice daily or As directed lisinopril 10 mg Tablet 10 mg PO DAILY melatonin 10 mg Tablet 10 mg PO HS budesonide-formoterol [Symbicort] 160-4.5 mcg/actuation HFA aerosol inhaler 2 puff inhalation BID albuterol sulfate 90 mcg/actuation HFA aerosol inhaler 2 puff INHALATION Q4HP PRN (Reason: Shortness Of Breath) Patient Comments: INHALE 2 PUFFS BY MOUTH EVERY 4 HOURS NEEDED FOR SHORTNESS OF BREATH Ozempic 0.25 mg or 0.5 mg (2 mg/3 mL) pen injector 0.5 mg SQ WEEKLY Referrals Follow up/Referrals: Provider,Referral, [Primary Care Provider] - See instructions Clinical Impressions Clinical Impression: UTI (urinary tract infection), RICKEY (acute kidney injury), Hyperkalemia, Dehydration Discharge ED Provider: Sindhu Cartagena General Adult HPI General Chief complaint: Shortness of Breath/Dyspnea Stated complaint: soa Time Seen by Provider: 11/18/23 16:56 Mode of Arrival: EMS Source of Information: Patient Limitations: No Limitations Description of Symptoms (Recalled from ER Triage Doc. by RN): Patient complaint of increased shortness of breath. States her home health nurse requested she come to the er for further evaluation. Patient is ed bound with an untreated decubitis to her right buttock and complains of possible UTI. Patient is a left below the knee amputee with right sided paralysis from a previous stroke. History of Present Illness HPI narrative: Patient is a 57-year-old female who has a history of multiple strokes and right-sided hemiparesis also has a left lower leg amputation and she is bedbound at home her sister takes care of her most the time but she has a home health nurse who sent her to the emergency department today. States she has had a very mild cough but been very mild and states that her home health nurse listen to her right lung and stated that it sounded bad and sent her to the emergency department. She is on 4 L nasal cannula at home and states that she has not had any increased oxygen requirement. She has not had any shortness of breath no increased wheezing or sputum production. No fevers or chills that she is aware of. She also states that she has had very foul-smelling urine over the last several days but denies any dysuria urgency or frequency. She is concerned she might have a urinary tract infection. Overall she does feel generally weak but no other symptoms. Related Data Home Medications Medication Instructions Recorded Confirmed blood-glucose meter (Advanced 06/10/23 08/05/23 Glucose Meter) carvedilol 3.125 mg tablet 3.125 mg PO BID High Blood Pressure 06/10/23 10/09/23 cholecalciferol (vitamin D3) 1,250 1,250 mcg PO WEEKLY Supplement 06/10/23 10/09/23 mcg (50,000 unit) capsule cholecalciferol (vitamin D3) 50 50 mcg PO DAILY Supplement 06/10/23 10/09/23 mcg (2,000 unit) capsule duloxetine 60 mg capsule,delayed 60 mg PO DAILY Depression 06/10/23 10/09/23 release furosemide 40 mg tablet 40 mg PO DAILY Fluid 06/10/23 10/09/23 insulin glargine 100 unit/mL 10 unit SQ HS Diabetes 06/10/23 10/09/23 subcutaneous solution (Lantus U-100 Insulin) lancets 30 gauge (Advanced Travel 06/10/23 08/05/23 Lancets) lisinopril 10 mg tablet 10 mg PO DAILY High Blood Pressure 06/11/23 10/09/23 melatonin 10 mg tablet 10 mg PO HS Supplement/Sleep 06/11/23 10/09/23 albuterol sulfate 90 mcg/actuation 2 puff inhalation Q4HP PRN 08/05/23 10/09/23 aerosol inhaler Shortness Of Breath budesonide-formoterol HFA 160 2 puff inhalation BID Breathing 08/05/23 10/09/23 mcg-4.5 mcg/actuation aerosol Problems inhaler (Symbicort) semaglutide 0.25 mg or 0.5 mg (2 0.5 mg SQ WEEKLY Diabetes 08/05/23 10/09/23 mg/3 mL) subcutaneous pen injector (Ozempic) cranberry 500 mg capsule 500 mg PO BID 10/09/23 10/09/23 Previous Rx's Medication Instructions Recorded acetaminophen 500 mg tablet 1,000 mg PO Q6HP PRN As Needed For 12/11/20 (Tylenol Extra Strength) Fever Or Pain #120 tabs ipratropium bromide 0.02 % 2.5 ml inhalation Q6H PRN 08/02/22 solution for inhalation shortness of breath or wheezing #150 mL sennosides 8.6 mg tablet 17.2 mg PO HS constipation #60 tabs 02/21/23 levothyroxine 150 mcg tablet 150 mcg PO DAILY thyroid #90 tabs 08/26/23 ondansetron 4 mg disintegrating 4 mg PO Q8HP PRN Nausea And 09/01/23 tablet Vomiting #30 tabs aspirin 81 mg tablet,delayed 81 mg PO DAILY heart health #90 09/11/23 release (Enteric Coated Aspirin) tabs atorvastatin 80 mg tablet 80 mg PO HS Cholesterol #90 tabs 09/11/23 insulin NPH-regular 70-30 U-100 See Rx Instructions .Route 09/11/23 insulin 100 unit/mL subcutaneous .COMPLEX #15 mL pen (Novolin 70-30 FlexPen U-100 Insulin) rivaroxaban 2.5 mg tablet (Xarelto) See Rx Instructions .Route 09/11/23 .COMPLEX #90 tabs dextromethorphan-guaifenesin 10 10 ml PO Q4-6H PRN cough #800 mL 09/16/23 mg-100 mg/5 mL oral liquid (Adult Tussin Cough Congestion DM) polyethylene glycol 3350 17 gram 17 g PO DAILY constipation #100 ea 09/16/23 oral powder packet (Miralax) ropinirole 0.25 mg tablet 0.25 mg PO HS #90 tabs 09/16/23 ketoconazole 2 % topical cream 1 applic topical BID lesion on 10/09/23 chest #60 grams mupirocin calcium 2 % topical cream 1 applic topical QID #30 grams 10/09/23 nystatin 100,000 unit/gram topical 1 applic topical TID rash #30 grams 10/09/23 cream zinc oxide 12 % topical cream 1 applic topical QID #57 grams 10/09/23 clonazepam 0.5 mg tablet 0.5 mg PO TID Anxiety #90 tabs 10/10/23 gabapentin 600 mg tablet 600 mg PO QID Pain #120 tabs 10/10/23 famotidine 20 mg tablet 20 mg PO DAILY #90 tabs 10/20/23 bupropion HCl 150 mg tablet,12 hr 150 mg PO DAILY 30 days #30 ea 10/22/23 sustained-release (Wellbutrin SR) blood sugar diagnostic (ReliOn #100 ea 10/23/23 Prime Test Strips) quetiapine 25 mg tablet (Seroquel) 25 mg PO HS #30 tabs 10/31/23 mirtazapine 30 mg tablet 30 mg PO HS sleep #90 tabs 11/05/23 hydrocodone 7.5 mg-acetaminophen 1 tab PO Q6H PAIN #120 tabs 11/11/23 325 mg tablet lidocaine 5 % topical patch 1 patch topical DAILY #30 ea 11/13/23 (Lidoderm) buspirone 15 mg tablet See Rx Instructions .Route 11/18/23 .COMPLEX #90 tabs Allergies Allergy/AdvReac Type Severity Reaction Status Date / Time protamine Allergy Verified 10/09/23 14:14 [facility] Disclaimer: The information contained in this section may have been updated after the patient was seen, as this information can be updated by other users. Medical History (Updated 11/18/23 @ 18:35 by Sindhu Cartagena MD) Abnormal ankle brachial index (NICOLAS) Abnormal nuclear stress test Acute bronchitis Amputation of one or more toes Angina pectoris Anxiety Anxiety and depression BKA stump complication Blister of foot CAD (coronary artery disease) CAD (coronary artery disease) Cellulitis of left foot Cellulitis of right foot CHF (congestive heart failure) Claudication Contusion of ribs COPD with exacerbation Coronary arteriosclerosis COVID-19 CVA (cerebral vascular accident) Decreased pedal pulses Dehydration Depression Diabetes mellitus Diabetic foot Diabetic foot infection Diabetic Foot Ulcer Diabetic neuropathy, type II diabetes mellitus Diabetic ulcer of right heel associated with diabetes mellitus due to underlying condition, limited to breakdown of skin Diastolic dysfunction Diastolic dysfunction Dyspnea Edema of left lower extremity Encounter for wound care Encounter for wound care Fall Foot abscess, right Gangrene of left foot History of amputation of left great toe History of CVA (cerebrovascular accident) History of left below knee amputation HTN (hypertension) Hyperlipidemia Hypertensive heart disease without heart failure Hypotension Hypothyroidism Hypoxia Infected wound Keratosis Left leg swelling 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 Left-sided weakness Low back pain Microalbuminuric diabetic nephropathy MRSA (methicillin resistant staph aureus) culture positive Nasal fracture Neuropathy Obesity Obesity Onychocryptosis Onychodystrophy Onychogryphosis Onychomycosis Onychomycosis PAD (peripheral artery disease) Pain due to onychomycosis of toenail 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) Peripheral arterial occlusive disease Pre-op evaluation Pre-ulcerative calluses PVD (peripheral vascular disease) Pyelonephritis Recent cerebrovascular accident (CVA) Respiratory failure Right femoral fracture Right flaccid hemiplegia Right sided weakness Sacral pressure ulcer Sepsis Smoker SOB (shortness of breath) Syncope Tibial plateau fracture, right Ulcer of left foot due to type 2 diabetes mellitus Ulcer of right foot due to type 2 diabetes mellitus Ulcer of right foot due to type 2 diabetes mellitus Urinary tract infection due to Klebsiella species Urinary tract infection due to Proteus UTI due to extended-spectrum beta lactamase (ESBL) producing Escherichia coli Varicose veins of both lower extremities Vitamin D deficiency Wheezing Surgical History (Updated 08/09/23 @ 00:05 by Emeli Ramos) S/P BKA (below knee amputation) unilateral Status post foot surgery Family History Diabetes Renal disease Heart disease Hypothyroid Heart attack Breast cancer Stroke Social History Smoking Status: Former smoker tobacco type: cigarettes packs per day: 1 second hand exposure: Yes alcohol intake: never substance use type: denies use current occupational status: disabled Travel in the last 8 weeks: None household members: none housing: [facility] current occupational exposures/hazards: No caffeine: No ROS Obtained: Yes All systems reviewed & no additional complaints except as documented Physical Exam General General appearance: alert Respiratory Respiratory exam: Present normal lung sounds bilaterally; Absent respiratory distress, wheezes or stridor Cardiovascular Cardiovascular exam: Present regular rate; Absent tachycardia Abdominal Exam Abdominal exam: Present soft; Absent distention or tenderness Neurological Exam Neurological exam: Present other (right hemiparesis ) Medical Decision Making Edgar Inquiry Pt receiving controlled substance: No Vital Signs: 11/18/23 16:53 Temperature 98.2 F Temperature Source Oral Pulse Rate [Radial] 80 Respiratory Rate 16 Blood Pressure [Left Arm] 97/54 L Blood Pressure Mean [Left Arm] 68 Blood Pressure Source [Left Arm] Automatic Cuff Blood Pressure Position [Left Arm] Sitting 02 Sat by Pulse Oximetry 92 L Oxygen Delivery Method Nasal Cannula Oxygen Flow Rate (LPM) 2 Lab Data Lab results reviewed: Yes I reviewed the patient's lab results. Lab Results 11/18/23 17:05: WBC 11.8 H, RBC 3.31 L, Hgb 10.8 L, Hct 32.9 L, MCV 99.5 H, MCH 32.7 H, MCHC 32.9, RDW 13.2, Plt Count 308, MPV 9.8, Neut % (Auto) 68.5, Lymph % (Auto) 19.4, Floyd % (Auto) 4.6, Eos % (Auto) 6.9, Baso % (Auto) 0.6, Neut # (Auto) 8.1 H, Lymph # (Auto) 2.3, Floyd # (Auto) 0.5, Eos # (Auto) 0.8 H, Baso # (Auto) 0.1, Sodium 138, Potassium 5.8 H, Chloride 98, Carbon Dioxide 31 H, Anion Gap 14.8, BUN 81 H, Creatinine 1.90 H, Estimated Creat Clear 47, Estimated GFR 27 L, Est GFR ( Amer) 33 L, Glucose 185 H, Calcium 9.3, Total Bilirubin 0.3, AST 22, ALT 18, Alkaline Phosphatase 89, Total Protein 6.9, Albumin 3.5, Globulin 3.4 H, Albumin/Globulin Ratio 1.0 L, SARS-CoV-2 (PCR) Not detected, Influenza A Untype (PCR) Not detected, Influenza Type B (PCR) Not detected 11/18/23 17:50: Urine Color Yellow, Urine Appearance Cloudy, Urine pH 6.5, Ur Specific Meherrin 1.015, Urine Protein 1+, Urine Glucose (UA) Negative, Urine Ketones Negative, Urine Blood 3+, Urine Nitrate Positive, Urine Bilirubin Negative, Urine Urobilinogen 0.2, Ur Leukocyte Esterase 2+ A, Urine RBC 10-20, Urine WBC 20-50, Ur Squamous Epith Cells None, Urine Bacteria 3+ 11/18/23 17:05 11/18/23 17:05 Orders (Tests/Meds): ED MEDICATIONS Generic Name Dose Route Start Last Admin Trade Name Freq PRN Reason Stop Dose Admin Lactated Ringer's 1,000 mls @ 999 mls/hr 11/18/23 17:45 11/18/23 17:41 Lactated Ringer's 1000 Ml Bag IV 11/18/23 18:45 999 mls/hr .Q1H1M BRIGETTE Administration Ceftriaxone Sodium 1 gm/ 50 mls @ 100 mls/hr 11/18/23 18:28 Sodium Chloride IV 11/18/23 18:57 ONCE ONE ORDERS Category Date Time Status CXR --portable [XR chest portable] Stat Exams 11/18/23 17:03 Completed CBC w/Auto Diff [Complete Blood Count Auto Diff] Stat Lab 11/18/23 17:05 Completed CMP [Comprehensive Metabolic Panel] Stat Lab 11/18/23 17:05 Completed Rapid PCR Covid and Flu A/B Stat Lab 11/18/23 17:05 Completed UA [Urinalysis and Microscopic] Stat Lab 11/18/23 17:50 Completed Urine Culture Stat Micro 11/18/23 17:50 Received Medical Decision Narrative: Patient is a 57-year-old female presented with multiple complaints specifically was sent in by home health nurse for abnormal lung sounds. Her lung exam for me is completely normal she has normal oxygen saturation on her home oxygen has no signs or symptoms of respiratory distress or COPD exacerbation. Chest x-ray was clear on my personal interpretation and radiology read as well. Of note patient was very weak clinically dehydrated with mild hypotension dry mucous membranes delayed capillary refill on my exam. She is also decreased p.o. intake labs returned showing acute kidney injury with a creatinine of 1.9 baseline 0.9. This is most likely prerenal I would suspect with her clinical history. She also has hyperkalemia EKG is being performed to see if there is any significant hyperkalemic changes but do not suspect that at below 6. Lastly she has signs and symptoms of urinary tract infection urinalysis is grossly positive this was a In-N-Out cath specimen. Urine culture has been sent and Rocephin was administered. She does have a nonspecific leukocytosis but no other signs and symptoms of sepsis at this point after some IV fluids blood pressure is improving with a systolic blood pressure of 111 on the most recent evaluation. I do not suspect she has sepsis severe sepsis or septic shock. Patient was admitted after discussing with Dr. Palomo Urbina for further evaluation and treatment. Critical Care Critical Care Time Critical Care Time: No
--- NOTE | 2023-11-18 17:10 | PC.NURSE ---
RAD at for CXR
[2023-11-18 17:18] LABS: Coronavirus 19, PCR Not Detected (NotDetected); Influenza A, PCR Not Detected (NotDetected); Influenza B, PCR Not Detected (NotDetected)
[2023-11-18 17:20] LABS: Basophils # 0.1 K/mm3 (0-0.2); Basophils % 0.6 % (0.1-2.0); Eosinophils # 0.8 K/mm3 (0.0-0.4); Eosinophils % 6.9 % (0.1-12.0); Hematocrit 32.9 % (37.0-47.0); Hemoglobin 10.8 g/dL (12.2-16.2); Lymphocytes # 2.3 K/mm3 (0.7-4.5); Lymphocytes % 19.4 % (10-50); Mean Corpuscular HGB Conc 32.9 g/dL (31.8-35.4); Mean Corpuscular Hemoglobin 32.7 pg (27.0-31.2); Mean Corpuscular Volume 99.5 fl (81-99); Mean Platelet Volume 9.8 fl (7.4-10.4); Monocytes # 0.5 K/mm3 (0.1-1.0); Monocytes % 4.6 % (1.7-9.3); Neutrophils # 8.1 K/mm3 (1.8-7.8); Neutrophils % 68.5 % (37.0-80.0); Platelet Count 308 K/mm3 (142-424); Red Blood Count 3.31 M/mm3 (4.20-5.40); Red Cell Distribution Width 13.2 % (11.5-17.5); White Blood Count 11.8 K/mm3 (4.8-10.8)
[2023-11-18 17:21] LABS: Chloride 98 mmol/L (98-107)
[2023-11-18 17:22] LABS: Potassium 5.8 mmoL/L (3.5-5.1); Sodium 138 mmol/L (136-145)
[2023-11-18 17:24] LABS: Alanine Aminotransferase 18 U/L (12-78); Aspartate Amino Transferase 22 U/L (14-36); Creatinine Clearance Estimated 47 mL/min (50-200); Estimated Glomerular Filt Rate 27 ml/min (>60); GFR (African American) 33 ML/MIN (>60)
[2023-11-18 17:25] LABS: Albumin Level 3.5 g/dl (3.5-5.0); Alkaline Phosphatase 89 U/L (38-126); Anion Gap 14.8 mEq/L (5-15); Bilirubin,Total 0.3 mg/dl (0.2-1.3); Calcium 9.3 mg/dl (8.4-10.2); Carbon Dioxide 31 mmol/L (22.0-30.0); Globulin 3.4 g/dL (1.3-3.2); Glucose 185 mg/dl (74-100); Total Protein,Serum 6.9 g/dl (6.3-8.2)
[2023-11-18 17:31] LABS: Blood Urea Nitrogen 81 mg/dl (7-17)
[2023-11-18] MEDS: LACTATED RINGERS 1000ML 1,000 ML 999 ML IV (17:41)
[2023-11-18 17:54] LABS: Microscopic, Urine URINE MICROSCOPIC (MICROSCOPIC)
[2023-11-18 18:05] LABS: Appearance,Urine CLOUDY (Clear); Bilirubin,Urine Negative (Negative); Blood, Urine 3+ (Negative); Color,Urine YELLOW (Yellow); Glucose,Urine (UA) Negative (Negative); Ketones,Urine Negative (Negative); Leukocyte Esterase,Urine 2+ (Negative); Nitrate,Urine POSITIVE (Negative); PH,Urine 6.5 (5.0-8.5); Protein,Urine 1+ (Negative); Specific Gravity, Urine 1.015 (1.005-1.030); Urobilinogen,Urine 0.2 EU/dl (0.2)
[2023-11-18 18:25] LABS: Bacteria,Urine 3+ /lpf; WBC,Urine 20-50 #/hpf (0-3)
--- NOTE | 2023-11-18 18:34 | PC.NURSE ---
Bag Liner notified of admission.
--- NOTE | 2023-11-18 18:43 | PC.NURSE ---
Attempted to call report. Nurse to call back.
--- NOTE | 2023-11-18 18:52 | PC.NURSE ---
Report called to Med Surg.
[2023-11-18] MEDS: CEFTRIAXONE SODIUM 1 GM in 0.9 % SODIUM CHLORIDE 50 ML IV (19:00)
[2023-11-18 19:31] VITALS: BP 112/73; PULSE 78; O2SAT 98
[2023-11-18 19:50] LABS: Thyroid Stimulating Hormone < 0.02 uIU/mL (0.465-4.68)
[2023-11-18 20:00] VITALS: BP 117/62; PULSE 79; O2SAT 97
[2023-11-18 20:19] VITALS: BP 117/62; PULSE 77; RESP 20; TEMP 36.7; O2SAT 97
--- NOTE | 2023-11-18 20:24 | PC.NURSE ---
pt arrived to the floor via stretcher @20:20
[2023-11-18 20:33] LABS: Hemoglobin A1C 7.2 % (4.0-6.0)
[2023-11-18 21:00] VITALS: BP 124/63; PULSE 73; RESP 18; TEMP 36.4; O2SAT 98; BMI 29.6
[2023-11-18] MEDS: GABAPENTIN 600MG TABLET 600 MG PO (23:12)
[2023-11-18] MEDS: ATORVASTATIN 40MG TABLET 80 MG PO (23:12)
[2023-11-18] MEDS: APAP/HYDROCODONE 325MG/7.5MG TAB 1 TAB PO (23:12)
[2023-11-18] MEDS: humaLOG 100 UNITS/ML 3ML VIAL (SSI) SQ (23:28)
[2023-11-19] VITALS: BP 115/72; PULSE 78; RESP 18; TEMP 36.3; O2SAT 98
[2023-11-19] MEDS: LACTATED RINGERS 1000ML 1,000 ML 100 ML IV ×3 (00:09→16:28)
--- NOTE | 2023-11-19 00:27 | P.HP_ITS ---
History of Present Illness *Admission Date: 11/18/23 (Pt seen by this provider on 11/18/2023 at 7:30 pm) *Reason for visit:: Generally weak *History of present illness: This is a 57-year-old female with a past medical history of CVA with right-sided hemiparesis, T2DM, obesity, HTN, hypothyroidism, who presents to the emergency department today with complaints of being generally weak. She lives at home with her sister and home health nurse who aids in her care. Home health was concerned about adventitious lung sounds and asked her to be seen in the emergency department. Patient does complain of cough but denies any shortness of breath. She reports being on her home 4 L nasal cannula without any increased oxygen requirement. She denies any chills but does state that she has had foul-smelling urine over the last several days. Denies any dysuria or frequency. She also complains of small decubitus ulcer on her coccyx Emergency department workup significant for RICKEY with a creatinine of 1.9 with a baseline of around 1. She is also noted to have a urinary tract infection with positive nitrites, leuk esterase, pyuria and bacteria. Chest x-ray is negative for any acute etiology. She was medicated with IV fluids and Rocephin in the emergency department and admitted to the hospitalist service for further evaluation [facility] Disclaimer: The information contained in this section may have been updated after the patient was seen, as this information can be updated by other users. Medical History Abnormal ankle brachial index (NICOLAS) Abnormal nuclear stress test Acute bronchitis Amputation of one or more toes Angina pectoris Anxiety Anxiety and depression BKA stump complication Blister of foot CAD (coronary artery disease) CAD (coronary artery disease) Cellulitis of left foot Cellulitis of right foot CHF (congestive heart failure) Claudication Contusion of ribs COPD (chronic obstructive pulmonary disease) COPD with exacerbation Coronary arteriosclerosis COVID-19 CVA (cerebral vascular accident) Decreased pedal pulses Dehydration Depression Diabetes Diabetes mellitus Diabetic foot Diabetic foot infection Diabetic Foot Ulcer Diabetic neuropathy, type II diabetes mellitus Diabetic ulcer of right heel associated with diabetes mellitus due to underlying condition, limited to breakdown of skin Diastolic dysfunction Diastolic dysfunction Dyspnea Edema of left lower extremity Encounter for wound care Encounter for wound care Fall Foot abscess, right Gangrene of left foot History of amputation of left great toe History of CVA (cerebrovascular accident) History of left below knee amputation HTN (hypertension) Hyperlipidemia Hyperlipidemia Hypertension Hypertensive heart disease without heart failure Hypotension Hypothyroidism Hypoxia Infected wound Keratosis Left leg swelling 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 Left-sided weakness Low back pain Microalbuminuric diabetic nephropathy MRSA (methicillin resistant staph aureus) culture positive Nasal fracture Neuropathy Obesity Obesity Onychocryptosis Onychodystrophy Onychogryphosis Onychomycosis Onychomycosis PAD (peripheral artery disease) Pain due to onychomycosis of toenail 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) Peripheral arterial occlusive disease Pre-op evaluation Pre-ulcerative calluses PVD (peripheral vascular disease) Pyelonephritis Recent cerebrovascular accident (CVA) Respiratory failure Right femoral fracture Right flaccid hemiplegia Right sided weakness Sacral pressure ulcer Sepsis Smoker SOB (shortness of breath) Syncope Tibial plateau fracture, right Ulcer of left foot due to type 2 diabetes mellitus Ulcer of right foot due to type 2 diabetes mellitus Ulcer of right foot due to type 2 diabetes mellitus Urinary tract infection due to Klebsiella species Urinary tract infection due to Proteus UTI due to extended-spectrum beta lactamase (ESBL) producing Escherichia coli Varicose veins of both lower extremities Vitamin D deficiency Wheezing Surgical History History of hip surgery S/P BKA (below knee amputation) unilateral Status post foot surgery Family History Other Breast cancer Diabetes Heart attack Heart disease Hypothyroid Renal disease Stroke Social History Smoking Status: Former smoker tobacco type: cigarettes packs per day: 1 second hand exposure: Yes alcohol intake: never substance use type: denies use current occupational status: disabled Travel in the last 8 weeks: None household members: none housing: intermediate current occupational exposures/hazards: No caffeine: No Review of Systems Constitutional Constitutional: Reports as per HPI Eyes Eyes: Reports as per HPI ENT Ears, Nose, Mouth, and Throat: Reports as per HPI *Cardiovascular Cardiovascular: Reports as per HPI *Respiratory Respiratory: Reports as per HPI *Genitourinary Genitourinary: Reports as per HPI *Musculoskeletal Musculoskeletal: Reports as per HPI Integumentary/Breasts Skin/Breast: Reports as per HPI *Neurologic Neurologic: Reports as per HPI Meds Home Medications and Allergies Home Medications Medication Instructions Recorded Confirmed Type blood-glucose meter ([facility] 06/10/23 08/05/23 History Glucose Meter) carvedilol 3.125 mg tablet 3.125 mg PO BIDWMEAL 06/10/23 11/19/23 History cholecalciferol (vitamin D3) 1,250 1,250 mcg PO WEEKLY 06/10/23 11/19/23 History mcg (50,000 unit) capsule cholecalciferol (vitamin D3) 50 50 mcg PO DAILY 06/10/23 11/19/23 History mcg (2,000 unit) capsule duloxetine 60 mg capsule,delayed 60 mg PO DAILY 06/10/23 11/19/23 History release furosemide 40 mg tablet 40 mg PO DAILY 06/10/23 11/19/23 History insulin glargine 100 unit/mL 10 unit SQ HS 06/10/23 11/19/23 History subcutaneous solution (Lantus U-100 Insulin) lancets 30 gauge ([facility] 06/10/23 08/05/23 History Lancets) lisinopril 10 mg tablet 10 mg PO DAILY 06/11/23 11/19/23 History melatonin 10 mg tablet 10 mg PO HS 06/11/23 11/19/23 History albuterol sulfate 90 mcg/actuation 2 puff inhalation Q4HP PRN 08/05/23 11/19/23 History aerosol inhaler Shortness Of Breath budesonide-formoterol HFA 160 2 puff inhalation Q12H 08/05/23 11/19/23 History mcg-4.5 mcg/actuation aerosol inhaler (Symbicort) ondansetron 4 mg disintegrating 4 mg PO Q8HP PRN Nausea And 09/01/23 11/19/23 Rx tablet Vomiting #30 tabs ropinirole 0.25 mg tablet 0.25 mg PO HS #90 tabs 09/16/23 11/19/23 Rx cranberry 500 mg capsule 500 mg PO BIDWMEAL 10/09/23 11/19/23 History mupirocin calcium 2 % topical cream 1 applic topical QID #30 grams 10/09/23 11/19/23 Rx zinc oxide 12 % topical cream 1 applic topical QID #57 grams 10/09/23 11/19/23 Rx famotidine 20 mg tablet 20 mg PO DAILY #90 tabs 10/20/23 11/19/23 Rx bupropion HCl 150 mg tablet,12 hr 150 mg PO DAILY 30 days #30 ea 10/22/23 11/19/23 Rx sustained-release (Wellbutrin SR) blood sugar diagnostic (ReliOn #100 ea 10/23/23 Rx Prime Test Strips) quetiapine 25 mg tablet (Seroquel) 25 mg PO HS #30 tabs 10/31/23 11/19/23 Rx lidocaine 5 % topical patch 1 patch topical DAILY #30 ea 11/13/23 11/19/23 Rx (Lidoderm) acetaminophen 500 mg tablet 1,000 mg PO Q6HP PRN Headache and 11/19/23 11/19/23 History (Tylenol Extra Strength) Pain aspirin 81 mg tablet,delayed 81 mg PO DAILY 11/19/23 11/19/23 History release (Enteric Coated Aspirin) atorvastatin 80 mg tablet 80 mg PO HS 11/19/23 11/19/23 History buspirone 15 mg tablet 15 mg PO TID 11/19/23 11/19/23 History clonazepam 0.5 mg tablet 0.5 mg PO TID 11/19/23 11/19/23 History gabapentin 600 mg tablet 600 mg PO QID 11/19/23 11/19/23 History hydrocodone 7.5 mg-acetaminophen 1 tab PO Q6H 11/19/23 11/19/23 History 325 mg tablet insulin NPH-regular 70-30 U-100 30 unit SQ AM 11/19/23 11/19/23 History insulin 100 unit/mL subcutaneous pen (Novolin 70-30 FlexPen U-100 Insulin) ketoconazole 2 % topical cream 1 applic topical BID Lesion on 11/19/23 11/19/23 History chest levothyroxine 150 mcg tablet 150 mcg PO AM 11/19/23 11/19/23 History mirtazapine 30 mg tablet 30 mg PO HS 11/19/23 11/19/23 History polyethylene glycol 3350 17 gram 17 g PO DAILY 11/19/23 11/19/23 History oral powder packet (Miralax) rivaroxaban 2.5 mg tablet (Xarelto) 2.5 mg PO BID DVT prophylaxis 11/19/23 11/19/23 History sennosides 8.6 mg tablet 17.2 mg PO HS 11/19/23 11/19/23 History New Prescriptions to Start Prescriptions: Allergies Allergy/AdvReac Type Severity Reaction Status Date / Time protamine Allergy Verified 10/09/23 14:14 Exam Data for Last 24 hours Vital signs and Labs for Last 24 Hours: Temp Pulse Resp BP Pulse Ox O2 Del Method O2 Flow Rate 97.5 F L 73 18 124/63 98 Room Air 2 11/18/23 21:00 11/18/23 21:00 11/18/23 21:00 11/18/23 21:00 11/18/23 21:00 11/18/23 21:00 11/18/23 20:19 Laboratory Results - last 24 hr 11/18/23 17:05: WBC 11.8 H, RBC 3.31 L, Hgb 10.8 L, Hct 32.9 L, MCV 99.5 H, MCH 32.7 H, MCHC 32.9, RDW 13.2, Plt Count 308, MPV 9.8, Neut % (Auto) 68.5, Lymph % (Auto) 19.4, [place] % (Auto) 4.6, Eos % (Auto) 6.9, Baso % (Auto) 0.6, Neut # (Auto) 8.1 H, Lymph # (Auto) 2.3, [place] # (Auto) 0.5, Eos # (Auto) 0.8 H, Baso # (Auto) 0.1, Sodium 138, Potassium 5.8 H, Chloride 98, Carbon Dioxide 31 H, Anion Gap 14.8, BUN 81 H, Creatinine 1.90 H, Estimated Creat Clear 47, Estimated GFR 27 L, Est GFR ( Amer) 33 L, Glucose 185 H, Hemoglobin A1c 7.2 H, Calcium 9.3, Total Bilirubin 0.3, AST 22, ALT 18, Alkaline Phosphatase 89, Total Protein 6.9, Albumin 3.5, Globulin 3.4 H, Albumin/Globulin Ratio 1.0 L, TSH < 0.02 L, SARS-CoV-2 (PCR) Not detected, Influenza A Untype (PCR) Not detected, Influenza Type B (PCR) Not detected 11/18/23 17:50: Urine Color Yellow, Urine Appearance Cloudy, Urine pH 6.5, Ur Specific [place] 1.015, Urine Protein 1+, Urine Glucose (UA) Negative, Urine Ketones Negative, Urine Blood 3+, Urine Nitrate Positive, Urine Bilirubin Negative, Urine Urobilinogen 0.2, Ur Leukocyte Esterase 2+ A, Urine RBC 10-20, Urine WBC 20-50, Ur Squamous Epith Cells None, Urine Bacteria 3+ I & O for Last 24 hours: Intake & Output 11/16/23 11/17/23 11/18/23 11/19/23 23:59 23:59 23:59 23:59 Weight 90.809 kg Constitutional Constitutional: no acute distress and morbidly obese *Routine HEENT Exam Head: Present normocephalic and atraumatic Eye: Present EOMI and PERRL ENT: Present mucous membranes dry *Routine Neck Exam Neck: Present supple and full ROM *Routine Respiratory Exam Respiratory: Present normal respiratory effort *Routine Cardiovascular Exam Cardiovascular: Present RRR, Normal S1 and Normal S2 *Routine Abdominal Exam Abdominal: Present soft and normoactive bowel sounds *Routine Rectal Exam Rectal:: deferred *Routine Genitalia Exam Genitalia:: deferred *Routine Extremities Exam Comments: Right-sided hemiparesis at baseline *Routine Skin Exam Skin: Present dry Comments: Small area of skin tear and nonblanchable redness noted to coccyx *Routine Neurological Exam Neurological: Present alert, oriented X3 and motor deficit (Right-sided hemiparesis) Assessment and Plan *Assessment and plan (1) RICKEY (acute kidney injury): Status: Acute Category: Medical Code(s): N17.9 - Acute kidney failure, unspecified (2) Acute cystitis: Status: Acute Qualifiers: Hematuria presence: with hematuria Qualified Code(s): N30.01 - Acute c ystitis with hematuria Category: Medical Code(s): N30.00 - Acute cystitis without hematuria (3) Hyperkalemia: Status: Acute Category: Medical Code(s): E87.5 - Hyperkalemia (4) Declining functional status: Status: Acute Category: Medical Code(s): R53.81 - Other malaise (5) Decubitus ulcer: Status: Acute Qualifiers: Laterality: left Pressure injury location: buttock Pressure injury stage: stage 1 Qualified Code(s): L89.321 - Pressure ulcer of left buttock, stage 1 Category: Medical Code(s): L89.90 - Pressure ulcer of unspecified site, unspecified stage (6) Type 2 diabetes mellitus with diabetic neuropathy, with long-term current use of insulin: Status: Chronic Category: Medical Code(s): E11.40 - Type 2 diabetes mellitus with diabetic neuropathy, unspecified; 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 (7) Obesity: Status: Acute Qualifiers: Body mass index: BMI 40.0-44.9 Obesity classification: adult class 3 (BMI >= 40) Obesity type: due to excess calories Serious obesity comorbidity presence: with serious comorbidity Qualified Code(s): E66.01 - Morbid (severe) obesity due to excess calories; Z68.41 - Body mass index [BMI] 40.0-44.9, adult Category: Medical Code(s): E66.9 - Obesity, unspecified (8) COPD (chronic obstructive pulmonary disease): Status: Chronic Qualifiers: COPD type: unspecified COPD Qualified Code(s): J44.9 - Chronic obstructive pulmonary disease, unspecified Category: Medical Code(s): J44.9 - Chronic obstructive pulmonary disease, unspecified Plan This is a 57-year-old female with past medical history of CVA, DM, HTN, COPD who was admitted for further evaluation of generalized weakness. She was found to have a urinary tract infection and RICKEY. She is admitted to the hospitalist service. RICKEY Likely prerenal, patient reports poor p.o. intake over the last several days Continue maintenance IV fluids Monitor intake and output Acute cystitis Positive leuk esterase, positive nitrates, pyuria and bacteria Continue Rocephin Follow-up urine culture Hyperkalemia Potassium of 5.9, no T wave segment changes Likely secondary to acute renal failure Receiving insulin and fluids Repeat BMP in a.m. Decubitus ulcer Patient reports this has been ongoing for approximately 1 week Every 4 hours turn Consult wound care Mepilex daily T2DM Continue long-acting and sliding scale insulin Diabetic diet COPD Continue home bronchodilators History of stroke CAD Continue aspirin, anticoagulation and atorvastatin Anxiety depression Continue home mood stabilizers DVT prophylaxis: Continue home anticoagulation Full code Rounded on patient after nurse practitioner. Personally examined and interviewed patient. Agree with exam findings and care plan as documented.
[2023-11-19 03:14] LABS: POC Glucose,Bedside 176 (70-110)
[2023-11-19 04:00] VITALS: BP 116/52; PULSE 74; RESP 18; TEMP 36.6; O2SAT 100; BMI 29.6
[2023-11-19] MEDS: APAP/HYDROCODONE 325MG/7.5MG TAB 1 TAB PO ×3 (05:12→22:27)
[2023-11-19] MEDS: FLUTICASONE HFA 110MCG INHALER 2 PUFF IH ×2 (06:24→18:00)
[2023-11-19 06:40] LABS: Chol/HDL Ratio 2.4 (1-3.5); Cholesterol 120 mg/dl (140-200); HDL Cholesterol 51 mg/dl (40-60); Triglycerides 130 mg/dl (30-150); VLDL Cholesterol 26 mg/dL (0-40)
[2023-11-19 06:51] LABS: Direct LDL Cholesterol 51.04 mg/dL (100-129)
[2023-11-19 06:54] LABS: Alanine Aminotransferase 16 U/L (12-78); Albumin Level 3.7 g/dl (3.5-5.0); Albumin/Globulin Ratio 1.2 (1.1-1.8); Alkaline Phosphatase 102 U/L (38-126); Anion Gap 13.5 mEq/L (5-15); Aspartate Amino Transferase 21 U/L (14-36); Bilirubin,Total 0.3 mg/dl (0.2-1.3); Blood Urea Nitrogen 76 mg/dl (7-17); Calcium 9.7 mg/dl (8.4-10.2); Carbon Dioxide 29 mmol/L (22.0-30.0); Chloride 100 mmol/L (98-107); Creatinine Clearance Estimated 68 mL/min (50-200); Estimated Glomerular Filt Rate 42 ml/min (>60); GFR (African American) 51 ML/MIN (>60); Globulin 3.1 g/dL (1.3-3.2); Glucose 115 mg/dl (74-100); Magnesium 1.9 mg/dl (1.6-2.3); Potassium 5.5 mmoL/L (3.5-5.1); Sodium 137 mmol/L (136-145); Total Protein,Serum 6.8 g/dl (6.3-8.2)
--- NOTE | 2023-11-19 07:45 | PC.NURSE ---
Patient with multiple skin issues. Intact Mepilex on coccyx and right outer leg. Wound care consult in place. Excoriation on bilateral buttocks, underneath pannus and bilateral breasts.
[2023-11-19 07:57] LABS: Basophils # 0.1 K/mm3 (0-0.2); Basophils % 0.8 % (0.1-2.0); Hematocrit 35.2 % (37.0-47.0); Hemoglobin 11.8 g/dL (12.2-16.2); Lymphocytes % 28.2 % (10-50); Mean Corpuscular HGB Conc 33.4 g/dL (31.8-35.4); Mean Corpuscular Hemoglobin 33.1 pg (27.0-31.2); Mean Platelet Volume 9.1 fl (7.4-10.4); Monocytes # 0.6 K/mm3 (0.1-1.0); Monocytes % 5.7 % (1.7-9.3); Neutrophils % 56.3 % (37.0-80.0); Platelet Count 303 K/mm3 (142-424); Red Blood Count 3.55 M/mm3 (4.20-5.40); Red Cell Distribution Width 13.1 % (11.5-17.5); White Blood Count 10.7 K/mm3 (4.8-10.8)
[2023-11-19 08:00] VITALS: BP 114/51; PULSE 80; RESP 18; TEMP 36.4; O2SAT 97
--- NOTE | 2023-11-19 08:23 | HMH.PHAINT1 ---
Pharmacy Intervention Comments: Home med list verified with patient bedside and with external pharmacy list.
[2023-11-19] MEDS: LEVOTHYROXINE 150MCG (0.15MG)TAB 150 MCG PO (08:54)
[2023-11-19] MEDS: GABAPENTIN 600MG TABLET 600 MG PO ×4 (09:30→21:30)
[2023-11-19] MEDS: ASPIRIN 81MG CHEWABLE TABLET 81 MG PO (09:30)
[2023-11-19] MEDS: RIVAROXABAN 2.5MG TABLET 2.5 MG PO ×2 (09:30→17:52)
[2023-11-19] MEDS: DULOXETINE 30MG CAPSULE.DR 60 MG PO (09:30)
[2023-11-19 11:19] VITALS: BP 133/67; PULSE 72; RESP 18; TEMP 36.7; O2SAT 95
--- NOTE | 2023-11-19 13:25 | SW/DCPLANNER ---
Addendum entered by [facility] 11/20/23 14:41: Evi w/ [facility] stated they can accept this patient and services will begin on 11/24/23: patient is agreeable. Addendum entered by [facility] 11/20/23 12:07: [facility] has now stated they are unable to accept this patient. Patient information/order has been faxed to [facility]. Addendum entered by [facility] 11/20/23 10:31: Lexy w/ [facility] stated that services will begin this week for this patient. Addendum entered by [facility] 11/20/23 09:30: Patient information/order for home health services has been faxed to [facility]. Addendum entered by [facility] 11/19/23 14:05: Patient stated that she plans to return back home w/ her caregiver, sister, VERNA [facility] services and home health. I did inform patient that [facility] would not be able to resume services. Patient prefers to find a different home health agency at time of discharge. Patient is not interested in placement. Discharge date is unknown at this time. Original Note: This patient was established w/ [facility] prior to hospital admission. Melanie martin/ [facility] followed up w/ me to inform me due to patient's level of care they will not be able to resume home health services at time of discharge.
[2023-11-19 13:50] VITALS: BMI 29.6
[2023-11-19] MEDS: NYSTATIN TOPICAL POWDER 30GM TP ×3 (13:55→21:30)
--- NOTE | 2023-11-19 14:25 | PC.NURSE ---
Pt unable to pass large hard stool even with attempted assistance. Order received for Fleets enema
--- NOTE | 2023-11-19 14:35 | HMH.OTEV ---
OT Inpatient Evaluation Rehab OT IP Evaluation Start: 11/19/23 11:36 Freq: ONCE Status: Active Protocol: Document 11/19/23 14:30 YAZROSE (Rec: 11/19/23 14:34 RENUKATHAIS [id number]) Rehab OT IP Assessment Subjective History This is a 57-year-old female with a past medical history of CVA with right-sided hemiparesis, T2DM, obesity, HTN, hypothyroidism, who presents to the emergency department today with complaints of being generally weak. She lives at home with her sister and home health nurse who aids in her care. Home health was concerned about adventitious lung sounds and asked her to be seen in the emergency department. Patient does complain of cough but denies any shortness of breath. She reports being on her home 4 L nasal cannula without any increased oxygen requirement. She denies any chills but does state that she has had foul-smelling urine over the last several days. Denies any dysuria or frequency. She also complains of small decubitus ulcer on her coccyx Emergency department workup significant for RICKEY with a creatinine of 1.9 with a baseline of around 1. She is also noted to have a urinary tract infection with positive nitrites, leuk esterase, pyuria and bacteria. Chest x- ray is negative for any acute etiology. She was medicated with IV fluids and Rocephin in the emergency department and admitted to the hospitalist service for further evaluation Patient lives at home with sister and home health nurse to provide care during the day . Patient uses a denise lift for transfers and power w/c to maneuver throughout home. Subjective I can sit up. Instructed Patient on proper hand and foot placement to participated in bed mobility of supine->sit @ EOB requiring Mod A. Patient demonstrated good dynamic sitting balance @ EOB. Patient sat up @EOB >5 mins and agreed to lay back in bed requiring Mod A. Left Patient sitting upright in bed with needs met. Objective Patient Orientation Person,Name,Birthday,Year Right Upper Extremity Gross ROM WFL Left Upper Extremity Gross ROM WFL Bed Mobility bed mobility - supine/sit Assist Level Moderate x 1 (50% assist) Rehab OT IP prob,goals,plan Problems Date of Evaluation: 11/19/23 Rehab Potential Rehab Potential Innapropriate for Skilled Therapy Discharge Plan OT Discharge Plan Patient is at baseline with ADLs and transfers. Recommend patient to return home with family and charger support at this time. Eval Complexity Eval Charge Codes 29307 - Low Complexity PHYSICIAN CERTIFICATION: I certify the specified therapy services for Vicky Squires are required, authorized, and reviewed every 30 days.
[2023-11-19] MEDS: MINERAL OIL ENEMA 133ML 133 ML RC (14:38)
--- NOTE | 2023-11-19 14:45 | HMH.OTEV ---
OT Inpatient Evaluation Rehab OT IP Evaluation Start: 11/19/23 11:36 Freq: ONCE Status: Active Protocol: Document 11/19/23 14:30 YAZROSE (Rec: 11/19/23 14:34 RENUKATHAIS [id number]) Rehab OT IP Assessment Subjective History This is a 57-year-old female with a past medical history of CVA with right-sided hemiparesis, T2DM, obesity, HTN, hypothyroidism, who presents to the emergency department today with complaints of being generally weak. She lives at home with her sister and home health nurse who aids in her care. Home health was concerned about adventitious lung sounds and asked her to be seen in the emergency department. Patient does complain of cough but denies any shortness of breath. She reports being on her home 4 L nasal cannula without any increased oxygen requirement. She denies any chills but does state that she has had foul-smelling urine over the last several days. Denies any dysuria or frequency. She also complains of small decubitus ulcer on her coccyx Emergency department workup significant for RICKEY with a creatinine of 1.9 with a baseline of around 1. She is also noted to have a urinary tract infection with positive nitrites, leuk esterase, pyuria and bacteria. Chest x- ray is negative for any acute etiology. She was medicated with IV fluids and Rocephin in the emergency department and admitted to the hospitalist service for further evaluation Patient lives at home with sister and home health nurse to provide care during the day . Patient uses a denise lift for transfers and power w/c to maneuver throughout home. Subjective I can sit up. Instructed Patient on proper hand and foot placement to participated in bed mobility of supine->sit @ EOB requiring Mod A. Patient demonstrated good dynamic sitting balance @ EOB. Patient sat up @EOB >5 mins and agreed to lay back in bed requiring Mod A. Left Patient sitting upright in bed with needs met. Objective Patient Orientation Person,Name,Birthday,Year Right Upper Extremity Gross ROM WFL Left Upper Extremity Gross ROM WFL Bed Mobility bed mobility - supine/sit Assist Level Moderate x 1 (50% assist) Rehab OT IP prob,goals,plan Problems Date of Evaluation: 11/19/23 Rehab Potential Rehab Potential Innapropriate for Skilled Therapy Discharge Plan OT Discharge Plan Patient is at baseline with ADLs and transfers. Recommend patient to return home with family and food sanitarian support at this time. Eval Complexity Eval Charge Codes 01937 - Low Complexity PHYSICIAN CERTIFICATION: I certify the specified therapy services for Vicky Squires are required, authorized, and reviewed every 30 days.
--- NOTE | 2023-11-19 15:13 | HMH.PTEV ---
Physical Therapy Evaluation Rehab PT IP Evaluation Start: 11/19/23 11:36 Freq: ONCE Status: Active Protocol: Document 11/19/23 15:08 LAURA (Rec: 11/19/23 15:12 LAURA [id number]) Subjective/History History History 57 yowf adm to [facility] with RICKEY and UTI. SHe has PMH of CVA with R side hemiplegia, DM, HTN, CAD, L BKA. 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 She uses a denise lift to transfer from bed to w/c at home at baseline and she requires assistance with all ADLs. Subjective Subjective Currently she has no c/o and reports she is feeling a little better. Agrees to sit at EOB. New diagnosis of cancer in past 12 No months? Rehab PT IP Eval Objective Appearance Patient Behavior Appropriate Patient Orientation Person,Place,Time Difficulty following instructions none Speech Pattern Clear Ambulation Patient Able to Ambulate No Balance Ability to Arise Able, uses arms to help Sitting Balance Steady, safe Dynamic Sitting Balance Ability Fair Transfers Bed Transfer Ability Moderate x 2 (50% assist) Chair Transfer Ability Total/Dependent (100%) Rehab PT IP prob,goals,plan Problems Date of Evaluation: 11/19/23 Discharge Plan PT Discharge Plan Pt is currenty at baseline for all mobility and is appropriate to return home once medically stable for d/c with prior level of assist. Eval Complexity Eval Charge Codes 92950 - High Complexity PHYSICIAN CERTIFICATION: I certify the specified therapy services for Vicky Squires are required, authorized, and reviewed every 30 days.
--- NOTE | 2023-11-19 15:17 | HMH.PTWOUND ---
Rehab Inpt Wound Evaluation Rehab IP Wound Evaluation Start: 11/19/23 07:23 Freq: ONCE Status: Active Protocol: Document 11/19/23 15:13 RACHELJB (Rec: 11/19/23 15:17 PHOCHEL [id number]) Rehab PT Wound Assessment Patient Status Premedicated Prior to Dressing Change No Subjective Subjective 57 yowf adm to [facility] with RICKEY and UTI. SHe has PMH of CVA with R side hemiplegia, DM, HTN, CAD, L BKA. She reports, My sister lives with me, not the other way around, and she has a graffiti cleaner with her throughout the day. She uses a denise lift to transfer from bed to w/c at home at baseline and she requires assistance with all ADLs. She presents with a wound on her sacrum prior to admission. That place has been there about a week. Wound Sacrum Wound Type Pressure Ulcer Is This a Chronic Wound No Wound Staging Stage II Query Text:Stage I - Unbroken, red skin, no blanching. Stage II - Skin broken, superficial skin loss involving epidermis alone or also dermis. Partial loss of skin layers. Stage III - Pressure area involves epidermis, dermis and subcutaneous tissue, full thickness skin loss. Stage IV - Pressure area involves epidermis, subcutaneous tissue, bone and other supportive tissue. Full thickness skin loss with extensive destruction of underlying tissue and structures. Wound Length (cm) 2.5 Wound Width (cm) 3.6 Wound Depth (cm) 0.1 Wound Bed Appearance [place] Wound Margins Description Well Defined Surrounding Tissue Appearance [place] Wound Drainage Description Serous Drainage Amount Small Drainage Odor No Odor Primary Dressing Composite Dressing Change Patient Tolerance Tolerated Well Plan/Recommendation Comment Nsg to continue dressing changes as previous, no debridement necessary at this time. Eval Complexity Eval Charge Codes 46664 - High Complexity PHYSICIAN CERTIFICATION: I certify the specified therapy services for Vicky Squires are required, authorized, and reviewed every 30 days.
[2023-11-19] MEDS: clonazePAM 0.5MG TABLET 0.5 MG PO ×2 (15:49→22:28)
[2023-11-19 16:00] VITALS: BP 109/68; PULSE 81; RESP 18; TEMP 36.7; O2SAT 94
--- NOTE | 2023-11-19 16:38 | PC.NURSE ---
Pt alert and oriented. VSS. On 2L O2 which is patient's baseline. Patient reluctant to turn but education provided regarding pressure ulcers and importance of repositioning to prevent further skin breakdown. Enema administered with medium hard BM. Urine output adequate. Wound consult completed. [place] for pain. Klonopin for anxiety. IV fluids infusing per orders.
[2023-11-19] MEDS: humaLOG 100 UNITS/ML 3ML VIAL (SSI) SQ ×2 (17:18→21:51)
[2023-11-19] MEDS: CEFTRIAXONE SODIUM 1 GM in 0.9 % SODIUM CHLORIDE 50 ML IV (17:52)
[2023-11-19 20:00] VITALS: BP 120/90; PULSE 83; RESP 18; TEMP 36.8; O2SAT 94
[2023-11-19] MEDS: QUETIAPINE 25MG TABLET 25 MG PO (21:30)
[2023-11-19] MEDS: ATORVASTATIN 40MG TABLET 80 MG PO (21:30)
[2023-11-19] MEDS: INSULIN GLARGINE 100 UNITS/ML 3ML FLEXPEN 10 UNIT SQ (21:50)
--- NOTE | 2023-11-19 22:55 | P.PN_ITS ---
Subjective *Date: 11/19/23 *Time: 22:55 Interval history: Patient feeling little bit better by morning. On 2 L nasal cannula oxygen. Awaiting PT eval. Tolerating p.o. intake. Quite weak. Has significant assistance at home per her report. Medical Exam Vital signs and Labs for Last 24 Hours: Vital Signs Temp Pulse Resp BP Pulse Ox O2 Del Method O2 Flow Rate 11/19/23 20:00 98.2 F 83 18 120/90 94 L Nasal Cannula 11/19/23 19:00 Nasal Cannula 2 11/19/23 16:00 98.1 F 81 18 109/68 L 94 L Nasal Cannula 2 11/19/23 16:43 Nasal Cannula 2 11/19/23 15:44 Nasal Cannula 2 11/19/23 14:50 Nasal Cannula 2 11/19/23 12:38 Nasal Cannula 2 11/19/23 11:19 98.1 F 72 18 133/67 95 Room Air 11/19/23 11:00 Nasal Cannula 2 11/19/23 08:55 Nasal Cannula 2 11/19/23 08:00 97.5 F L 80 18 114/51 L 97 Nasal Cannula 2 11/19/23 07:45 Nasal Cannula 2 11/19/23 07:00 Nasal Cannula 2 11/19/23 05:00 Nasal Cannula 2 11/19/23 03:00 Nasal Cannula 2 11/19/23 01:00 Nasal Cannula 2 11/18/23 23:00 Nasal Cannula 2 11/19/23 04:00 97.9 F 74 18 116/52 L 100 Nasal Cannula 11/19/23 00:00 97.3 F L 78 18 115/72 98 Nasal Cannula Intake and Output 11/19/23 11/19/23 11/19/23 07:59 15:59 23:59 Intake Total 930 / 3599 2309 / 3599 360 / 3599 Output Total 1700 / 3300 800 / 3300 800 / 3300 Balance -770 / 299 1509 / 299 -440 / 299 Intake: Intake, Oral Amount 480 / 2130 1290 / 2130 360 / 2130 Intake, Total IV Amount 450 / 1469 1019 / 1469 Lactated Ringers 1000ML 1,000 450 / 1469 1019 / 1469 ml @ 100 mls/hr IV .Q10H FORMERLY [facility], 1928–1983 Rx #:[id number] Output: Output, Urine Amount 1700 / 3300 800 / 3300 800 / 3300 Other: Number of Unmeasured Voids 1 1 0 Number of Bowel Movements 1 Weight 90.809 kg 90.8 kg Patient Weight 11/19/23 23:59 Weight 90.8 kg Laboratory Results - last 24 hr 11/18/23 23:11: POC Glucose 176 H 11/19/23 06:03: Sodium 137, Potassium 5.5 H, Chloride 100, Carbon Dioxide 29, Anion Gap 13.5, BUN 76 H, Creatinine 1.30 H D, Estimated Creat Clear 68, Karine mated GFR 42 L, Est GFR ( Amer) 51 L D, Glucose 115 H D, Calcium 9.7, Magnesium 1.9, Total Bilirubin 0.3, AST 21, ALT 16, Alkaline Phosphatase 102, Total Protein 6.8, Albumin 3.7, Globulin 3.1, Albumin/Globulin Ratio 1.2, Triglycerides 130, Cholesterol 120 L, LDL Cholesterol Direct 51.04 L, VLDL Cholesterol 26, HDL Cholesterol 51, Cholesterol/HDL Ratio 2.4 11/19/23 07:30: WBC 10.7, RBC 3.55 L, Hgb 11.8 L, Hct 35.2 L, MCV 99.0, MCH 33.1 H, MCHC 33.4, RDW 13.1, Plt Count 303, MPV 9.1, Neut % (Auto) 56.3, Lymph % (Auto) 28.2, Jerome % (Auto) 5.7, Eos % (Auto) 9.0, Baso % (Auto) 0.8, Neut # (Auto) 6.0, Lymph # (Auto) 3.0, Jerome # (Auto) 0.6, Eos # (Auto) 1.0 H, Baso # (Auto) 0.1 I & O for Labs for Last 24 Hours: Intake & Output 11/16/23 11/17/23 11/18/23 11/19/23 23:59 23:59 23:59 23:59 Intake Total 3599 / 3599 Output Total 3300 / 3300 Balance 299 / 299 Weight 90.809 kg 90.8 kg Constitutional: Present no acute distress, obese, chronically ill appearing and cooperative Head: Present atraumatic and normocephalic ENT: Present normal exam Respiratory: Present normal respiratory effort; Absent rhonchi, wheezes or crackles Cardiac: Present Reg Rate and Rhythm GI: Present soft and normal bowel sounds; Absent distention or tenderness Extremities: Absent edema Comment:: Left BKA, paralysis of right upper and lower extremity. Skin: Present erythema (Excoriation and skin fold) Comment:: Decubitus wound on buttocks and right lower extremity Neuro: Present alert, awake and oriented x 3 Assessment and Plan *Assessment and plan (1) RICKEY (acute kidney injury): Status: Acute Category: Medical Code(s): N17.9 - Acute kidney failure, unspecified (2) Acute cystitis: Status: Acute Qualifiers: Hematuria presence: with hematuria Qualified Code(s): N30.01 - Acute cystitis with hematuria Category: Medical Code(s): N30.00 - Acute cystitis without hematuria (3) Hyperkalemia: Status: Acute Category: Medical Code(s): E87.5 - Hyperkalemia (4) Declining functional status: Status: Acute Category: Medical Code(s): R53.81 - Other malaise (5) Decubitus ulcer: Status: Acute Qualifiers: Pressure injury location: buttock Pressure injury stage: stage 1 Laterality: left Qualified Code(s): L89.321 - Pressure ulcer of left buttock, stage 1 Category: Medical Code(s): L89.90 - Pressure ulcer of unspecified site, unspecified stage (6) Type 2 diabetes mellitus with diabetic neuropathy, with long-term current use of insulin: Status: Chronic Category: Medical Code(s): E11.40 - Type 2 diabetes mellitus with diabetic neuropathy, unspecified; Z79.4 - custodial (current) use of insulin (7) Obesity: Status: Acute Qualifiers: Obesity type: due to excess calories Obesity classification: adult class 3 (BMI >= 40) Serious obesity comorbidity presence: with serious comorbidity Body mass index: BMI 40.0-44.9 Qualified Code(s): E66.01 - Morbid (severe) obesity due to excess calories; Z68.41 - Body mass index [BMI] 40.0- 44.9, adult Category: Medical Code(s): E66.9 - Obesity, unspecified (8) COPD (chronic obstructive pulmonary disease): Status: Chronic Qualifiers: COPD type: unspecified COPD Qualified Code(s): J44.9 - Chronic obstructive pulmonary disease, unspecified Category: Medical Code(s): J44.9 - Chronic obstructive pulmonary disease, unspecified Plan This is a 57-year-old female with past medical history of CVA, DM, HTN, COPD who was admitted for further evaluation of generalized weakness. She was found to have a urinary tract infection and RICKEY. She is admitted to the hospitalist service. See improvement in kidney function, creatinine improved to 1.3. BUN 76. Continues to require inpatient management. PT and OT evaluating for placement. Problems addressed as follows: RICKEY Responding to IV fluids. Continue with general fluid resuscitation. Encourage p.o. intake Creatinine improved to 1.3, BUN 76. Repeat CMP ordered for the morning. Magnesium 1.9, repeat level ordered for the morning. Acute cystitis Positive leuk esterase, positive nitrates, pyuria and bacteria Continue Rocephin 1 g daily; Follow-up urine culture Hyperkalemia Potassium of 5.5 this morning. Monitor for improvement with improvement in kidney function. Decubitus ulcer Patient reports this has been ongoing for approximately 1 week Turning every 2 hours. Wound care consult placed. T2DM Continue long-acting and sliding scale insulin Diabetic diet COPD Continue home bronchodilators History of stroke CAD Continue aspirin, anticoagulation and atorvastatin Anxiety depression Continue home mood stabilizers DVT prophylaxis: Continue home anticoagulation Full code
[2023-11-19] MEDS: MELATONIN 5MG TABLET 10 MG PO (23:09)
[2023-11-20] VITALS: BP 94/47; PULSE 69; RESP 17; TEMP 36.9; O2SAT 96
[2023-11-20 04:00] VITALS: BP 122/58; PULSE 67; RESP 18; TEMP 36.8; O2SAT 92; BMI 31.3
[2023-11-20] MEDS: FLUTICASONE HFA 110MCG INHALER 2 PUFF IH (06:27)
[2023-11-20 06:30] VITALS: O2SAT 94
[2023-11-20] MEDS: LEVOTHYROXINE 150MCG (0.15MG)TAB 150 MCG PO (06:33)
[2023-11-20] MEDS: RIVAROXABAN 2.5MG TABLET 2.5 MG PO (06:33)
[2023-11-20] MEDS: APAP/HYDROCODONE 325MG/7.5MG TAB 1 TAB PO ×2 (06:38→13:16)
[2023-11-20 07:19] LABS: Alanine Aminotransferase 12 U/L (12-78); Albumin Level 2.2 g/dl (3.5-5.0); Albumin/Globulin Ratio 0.8 (1.1-1.8); Alkaline Phosphatase 76 U/L (38-126); Anion Gap 4.7 mEq/L (5-15); Aspartate Amino Transferase 21 U/L (14-36); Bilirubin,Total 0.3 mg/dl (0.2-1.3); Blood Urea Nitrogen 44 mg/dl (7-17); Calcium 6.5 mg/dl (8.4-10.2); Carbon Dioxide 22 mmol/L (22.0-30.0); Chloride 115 mmol/L (98-107); Creatinine Clearance Estimated 134 mL/min (50-200); Estimated Glomerular Filt Rate 86 ml/min (>60); GFR (African American) 104 ML/MIN (>60); Globulin 2.6 g/dL (1.3-3.2); Glucose 75 mg/dl (74-100); Magnesium 1.3 mg/dl (1.6-2.3); Potassium 4.7 mmoL/L (3.5-5.1); Sodium 137 mmol/L (136-145); Total Protein,Serum 4.8 g/dl (6.3-8.2)
[2023-11-20 08:00] VITALS: BP 115/60; PULSE 82; RESP 18; TEMP 36.6; O2SAT 92; O2SAT 95
[2023-11-20] MEDS: ASPIRIN 81MG CHEWABLE TABLET 81 MG PO (08:29)
[2023-11-20] MEDS: GABAPENTIN 600MG TABLET 600 MG PO ×2 (08:29→12:10)
[2023-11-20] MEDS: DULOXETINE 30MG CAPSULE.DR 60 MG PO (08:29)
[2023-11-20] MEDS: NYSTATIN TOPICAL POWDER 30GM TP ×2 (08:31→12:12)
--- NOTE | 2023-11-20 08:33 | EXP.DC.SUM ---
General Admission date:: 11/18/23 Discharge date: 11/20/23 HPI HPI HPI: This is a 57-year-old female with a past medical history of CVA with right-sided hemiparesis, T2DM, obesity, HTN, hypothyroidism, who presents to the emergency department today with complaints of being generally weak. She lives at home with her sister and home health nurse who aids in her care. Home health was concerned about adventitious lung sounds and asked her to be seen in the emergency department. Patient does complain of cough but denies any shortness of breath. She reports being on her home 4 L nasal cannula without any increased oxygen requirement. She denies any chills but does state that she has had foul-smelling urine over the last several days. Denies any dysuria or frequency. She also complains of small decubitus ulcer on her coccyx Emergency department workup significant for RICKEY with a creatinine of 1.9 with a baseline of around 1. She is also noted to have a urinary tract infection with positive nitrites, leuk esterase, pyuria and bacteria. Chest x-ray is negative for any acute etiology. She was medicated with IV fluids and Rocephin in the emergency department and admitted to the hospitalist service for further evaluation Hospital Course Hospital Course Hospital Course: his is a 57-year-old female with past medical history of CVA, DM, HTN, COPD who was admitted for further evaluation of generalized weakness. She was found to have a urinary tract infection and RICKEY. She is admitted to the hospitalist service. Symptoms improved during admission. Meeting discharge criteria with normalization of kidney function and toleration of p.o. intake. Patient wants to go home with home health, no desire for placement. Problems addressed as follows: RICKEY Creatinine elevated 1.9 on admission, improved with fluid resuscitation and back to normal at 0.7 on day of discharge. Would benefit from repeat CBC, CMP, magnesium in 1 week. Acute cystitis Positive leuk esterase, positive nitrates, pyuria and bacteria. Initiated on Rocephin 1 g daily. Urine cultures remain negative at over 48 hours. Given previous cultures however will transition to Macrobid 100 mg twice daily for 5 days total. Hyperkalemia: Potassium of 5.8 on admission. Improved to 4.7 on day of discharge. Decubitus ulcer Patient reports this has been ongoing for approximately 1 week. Turned over 2 hours during admission. Wound care consulted during admission. Home health to resume care at discharge. T2DM: Continue long-acting home regimen and medications at discharge. COPD: Continue home bronchodilators History of stroke CAD Continue aspirin, anticoagulation and atorvastatin Anxiety depression Continue home mood stabilizers Strong concern for patient being a readmission risk given her comorbidities. Would benefit from placement long-term however patient prefers to go home with home health. Exam Data for Last 24 hours Vital signs and Labs for Last 24 Hours: Temp Pulse Resp BP Pulse Ox O2 Del Method O2 Flow Rate 97.9 F 82 18 115/60 92 L Nasal Cannula 2 11/20/23 08:00 11/20/23 08:00 11/20/23 08:00 11/20/23 08:00 11/20/23 08:00 11/20/23 08:00 11/20/23 08:00 Laboratory Results - last 24 hr 11/20/23 06:28: Sodium 137, Potassium 4.7, Chloride 115 H, Carbon Dioxide 22, Anion Gap 4.7 L, BUN 44 H D, Creatinine 0.70 D, Estimated Creat Clear 134, Estimated GFR 86, Est GFR ( Amer) 104 D, Glucose 75, Calcium 6.5 L, Magnesium 1.3 L D, Total Bilirubin 0.3, AST 21, ALT 12, Alkaline Phosphatase 76, Total Protein 4.8 L D, Albumin 2.2 L D, Globulin 2.6, Albumin/Globulin Ratio 0.8 L I & O for Last 24 hours: Intake & Output 11/17/23 11/18/23 11/19/23 11/20/23 23:59 23:59 23:59 23:59 Intake Total 3599 / 4879 1520 / 1520 Output Total 3300 / 4700 2500 / 2500 Balance 299 / 179 -980 / -980 Weight 90.809 kg 90.8 kg 95.98 kg Constitutional Constitutional: no acute distress, obese, chronically ill appearing and cooperative *Routine HEENT Exam Head: Present normocephalic Eye: Present EOMI and PERRL ENT: Present mucous membranes moist *Routine Respiratory Exam Respiratory: Present rhonchi, normal respiratory effort and symmetric chest movement *Routine Cardiovascular Exam Cardiovascular: Present RRR, Normal S1 and Normal S2 *Routine Abdominal Exam Abdominal: Present soft and normoactive bowel sounds; Absent tenderness *Routine Extremities Exam Extremities: Absent cyanosis or clubbing Comments: Right-sided weakness and hemiparesis, left BKA. *Routine Skin Exam Skin: Present warm; Absent rash Comments: Decubitus wound right du and buttocks *Routine Neurological Exam Neurological: Present alert and oriented X3; Absent sensory deficit or motor deficit Results Data Completed and Pending Labs on day of discharge: Labs from last 24 hours 11/20/23 06:28 Sodium 137 Potassium 4.7 Chloride 115 H Carbon Dioxide 22 Anion Gap 4.7 L BUN 44 H D Creatinine 0.70 D Estimated Creat Clear 134 Estimated GFR 86 Est GFR ( Amer) 104 D Glucose 75 Calcium 6.5 L Magnesium 1.3 L D Total Bilirubin 0.3 AST 21 ALT 12 Alkaline Phosphatase 76 Total Protein 4.8 L D Albumin 2.2 L D Globulin 2.6 Albumin/Globulin Ratio 0.8 L DS: Diagnosis Discharge Diagnosis (1) RICKEY (acute kidney injury): Status: Acute Code(s): N17.9 - Acute kidney failure, unspecified (2) Acute cystitis: Status: Acute Code(s): N30.00 - Acute cystitis without hematuria Qualifiers: Hematuria presence: with hematuria Qualified Code(s): N30.01 - Acute cystitis with hematuria (3) Hyperkalemia: Status: Acute Code(s): E87.5 - Hyperkalemia (4) Declining functional status: Status: Acute Code(s): R53.81 - Other malaise (5) Decubitus ulcer: Status: Acute Code(s): L89.90 - Pressure ulcer of unspecified site, unspecified stage Qualifiers: Laterality: left Pressure injury location: buttock Pressure injury stage: stage 1 Qualified Code(s): L89.321 - Pressure ulcer of left buttock, stage 1 (6) Type 2 diabetes mellitus with diabetic neuropathy, with long-term current use of insulin: Status: Chronic Code(s): E11.40 - Type 2 diabetes mellitus with diabetic neuropathy, unspecified; Z79.4 - termite exterminator (current) use of insulin (7) Obesity: Status: Acute Code(s): E66.9 - Obesity, unspecified Qualifiers: Body mass index: BMI 40.0-44.9 Obesity classification: adult class 3 (BMI >= 40) Obesity type: due to excess calories Serious obesity comorbidity presence: with serious comorbidity Qualified Code(s): E66.01 - Morbid (severe) obesity due to excess calories; Z68.41 - Body mass index [BMI] 40.0-44.9, adult (8) COPD (chronic obstructive pulmonary disease): Status: Chronic Code(s): J44.9 - Chronic obstructive pulmonary disease, unspecified Qualifiers: COPD type: unspecified COPD Qualified Code(s): J44.9 - Chronic obstructive pulmonary disease, unspecified Meds Home Medications and Allergies Home Medications Medication Instructions Recorded Confirmed Type blood-glucose meter (Advanced 06/10/23 08/05/23 History Glucose Meter) carvedilol 3.125 mg tablet 3.125 mg PO BIDWMEAL 06/10/23 11/19/23 History cholecalciferol (vitamin D3) 1,250 1,250 mcg PO WEEKLY 06/10/23 11/19/23 History mcg (50,000 unit) capsule cholecalciferol (vitamin D3) 50 50 mcg PO DAILY 06/10/23 11/19/23 History mcg (2,000 unit) capsule duloxetine 60 mg capsule,delayed 60 mg PO DAILY 06/10/23 11/19/23 History release furosemide 40 mg tablet 40 mg PO DAILY 06/10/23 11/19/23 History insulin glargine 100 unit/mL 10 unit SQ HS 06/10/23 11/19/23 History subcutaneous solution (Lantus U-100 Insulin) lancets 30 gauge (Advanced Travel 06/10/23 08/05/23 History Lancets) lisinopril 10 mg tablet 10 mg PO DAILY 06/11/23 11/19/23 History melatonin 10 mg tablet 10 mg PO HS 06/11/23 11/19/23 History albuterol sulfate 90 mcg/actuation 2 puff inhalation Q4HP PRN 08/05/23 11/19/23 History aerosol inhaler Shortness Of Breath budesonide-formoterol HFA 160 2 puff inhalation Q12H 08/05/23 11/19/23 History mcg-4.5 mcg/actuation aerosol inhaler (Symbicort) ondansetron 4 mg disintegrating 4 mg PO Q8HP PRN Nausea And 09/01/23 11/19/23 Rx tablet Vomiting #30 tabs ropinirole 0.25 mg tablet 0.25 mg PO HS #90 tabs 09/16/23 11/19/23 Rx cranberry 500 mg capsule 500 mg PO BIDWMEAL 10/09/23 11/19/23 History mupirocin calcium 2 % topical cream 1 applic topical QID #30 grams 10/09/23 11/19/23 Rx zinc oxide 12 % topical cream 1 applic topical QID #57 grams 10/09/23 11/19/23 Rx famotidine 20 mg tablet 20 mg PO DAILY #90 tabs 10/20/23 11/19/23 Rx bupropion HCl 150 mg tablet,12 hr 150 mg PO DAILY 30 days #30 ea 10/22/23 11/19/23 Rx sustained-release (Wellbutrin SR) blood sugar diagnostic (ReliOn #100 ea 10/23/23 Rx Prime Test Strips) quetiapine 25 mg tablet (Seroquel) 25 mg PO HS #30 tabs 10/31/23 11/19/23 Rx lidocaine 5 % topical patch 1 patch topical DAILY #30 ea 11/13/23 11/19/23 Rx (Lidoderm) acetaminophen 500 mg tablet 1,000 mg PO Q6HP PRN Headache and 11/19/23 11/19/23 History (Tylenol Extra Strength) Pain aspirin 81 mg tablet,delayed 81 mg PO DAILY 11/19/23 11/19/23 History release (Enteric Coated Aspirin) atorvastatin 80 mg tablet 80 mg PO HS 11/19/23 11/19/23 History buspirone 15 mg tablet 15 mg PO TID 11/19/23 11/19/23 History clonazepam 0.5 mg tablet 0.5 mg PO TID 11/19/23 11/19/23 History gabapentin 600 mg tablet 600 mg PO QID 11/19/23 11/19/23 History hydrocodone 7.5 mg-acetaminophen 1 tab PO Q6H 11/19/23 11/19/23 History 325 mg tablet insulin NPH-regular 70-30 U-100 30 unit SQ AM 11/19/23 11/19/23 History insulin 100 unit/mL subcutaneous pen (Novolin 70-30 FlexPen U-100 Insulin) ketoconazole 2 % topical cream 1 applic topical BID Lesion on 11/19/23 11/19/23 History chest levothyroxine 150 mcg tablet 150 mcg PO AM 11/19/23 11/19/23 History mirtazapine 30 mg tablet 30 mg PO HS 11/19/23 11/19/23 History polyethylene glycol 3350 17 gram 17 g PO DAILY 11/19/23 11/19/23 History oral powder packet (Miralax) rivaroxaban 2.5 mg tablet (Xarelto) 2.5 mg PO BID DVT prophylaxis 11/19/23 11/19/23 History sennosides 8.6 mg tablet 17.2 mg PO HS 11/19/23 11/19/23 History magnesium oxide 400 mg (241.3 mg 400 mg PO BID 30 days #60 tabs 11/20/23 Rx magnesium) tablet nitrofurantoin macrocrystal 100 mg 100 mg PO BID 4 days #8 caps 11/20/23 Rx capsule nystatin 100,000 unit/gram topical 1 applic topical QID 10 days #30 11/20/23 Rx powder grams New Prescriptions to Start Prescriptions: magnesium oxide Maico Urbina nitrofurantoin macrocrystal Ciara,Maico nystatin Maico Urbina Allergies Allergy/AdvReac Type Severity Reaction Status Date / Time protamine Allergy Verified 10/09/23 14:14 Discharge Plan Disposition Patient Disposition: Home Health Service Condition: Fair Discharge Order Discharge Orders: Discharge Order (Routine); Ordered 11/20/23 Ordered By: Maico Urbina Follow up Plan Follow up with: Suzi Burns PA [Physician Special Police Officer] - 12/03/23 10:15 am Prescriptions/Medication Reconciliation: New magnesium oxide 400 mg (241.3 mg magnesium) Tablet 400 mg PO BID 30 Days Qty: 60 0RF nitrofurantoin macrocrystal 100 mg Capsule 100 mg PO BID 4 Days Qty: 8 0RF nystatin 100,000 unit/gram Powder 1 applic topical QID 10 Days Qty: 30 0RF Continued cranberry 500 mg capsule 500 mg PO BIDWMEAL mupirocin calcium 2 % cream 1 applic topical QID Qty: 30 1RF zinc oxide 12 % cream 1 applic topical QID Qty: 57 1RF ondansetron 4 mg tablet,disintegrating 4 mg PO Q8HP PRN (Reason: Nausea And Vomiting) Qty: 30 3RF ropinirole 0.25 mg tablet 0.25 mg PO HS Qty: 90 0RF Rx Instructions: Administer 1-3 hours before bedtime famotidine 20 mg tablet 20 mg PO DAILY Qty: 90 3RF bupropion HCl [Wellbutrin SR] 150 mg tablet sustained-release 12 hr 150 mg PO DAILY 30 Days Qty: 30 2RF (DME) ReliOn Prime Test Strips Strip See Rx Instructions .Route Qty: 100 2RF Rx Instructions: As directed or bid quetiapine [Seroquel] 25 mg tablet 25 mg PO HS Qty: 30 2RF lidocaine [Lidoderm] 5 % adhesive patch,medicated 1 patch topical DAILY Qty: 30 5RF Rx Instructions: Leave on most painful area for up to 12 hours, then remove. duloxetine 60 mg capsule,delayed release(DR/EC) 60 mg PO DAILY furosemide 40 mg tablet 40 mg PO DAILY insulin glargine [Lantus U-100 Insulin] 100 unit/mL solution 10 unit SQ HS (DME) blood-glucose meter [Advanced Glucose Meter] Misc See Rx Instructions .Route Rx Instructions: As directed carvedilol 3.125 mg tablet 3.125 mg PO BIDWMEAL cholecalciferol (vitamin D3) 1,250 mcg (50,000 unit) capsule 1,250 mcg PO WEEKLY cholecalciferol (vitamin D3) 50 mcg (2,000 unit) capsule 50 mcg PO DAILY (DME) lancets [Advanced Travel Lancets] 30 gauge misc See Rx Instructions .Route Rx Instructions: Check sugar twice daily or As directed lisinopril 10 mg Tablet 10 mg PO DAILY melatonin 10 mg Tablet 10 mg PO HS budesonide-formoterol [Symbicort] 160-4.5 mcg/actuation HFA aerosol inhaler 2 puff inhalation Q12H albuterol sulfate 90 mcg/actuation HFA aerosol inhaler 2 puff INHALATION Q4HP PRN (Reason: Shortness Of Breath) atorvastatin 80 mg tablet 80 mg PO HS sennosides 8.6 mg tablet 17.2 mg PO HS gabapentin 600 mg tablet 600 mg PO QID polyethylene glycol 3350 [Miralax] 17 gram powder in packet 17 g PO DAILY clonazepam 0.5 mg tablet 0.5 mg PO TID aspirin [Enteric Coated Aspirin] 81 mg tablet,delayed release (DR/EC) 81 mg PO DAILY acetaminophen [Tylenol Extra Strength] 500 mg tablet 1,000 mg PO Q6HP PRN (Reason: Headache and Pain ) hydrocodone-acetaminophen 7.5-325 mg tablet 1 tab PO Q6H mirtazapine 30 mg tablet 30 mg PO HS levothyroxine 150 mcg tablet 150 mcg PO AM ketoconazole 2 % cream 1 applic topical BID buspirone 15 mg tablet 15 mg PO TID Novolin 70-30 FlexPen U-100 100 unit/mL (70-30) insulin pen 30 unit SQ AM Xarelto 2.5 mg tablet 2.5 mg PO BID Problem Reconciliation Problems Reviewed?: Yes Patient Discharge Instructions ACTIVITY: Continue current activity DIET: continue same diet Patient Instructions: Urinary Tract Infection, DI for Dehydration -- Adult, Acute Kidney Injury, DI for Hyperkalemia Providers Primary Care Provider: Provider,Referral Admit Provider: Maico Urbina Attending Provider: Maico Urbina
[2023-11-20] MEDS: clonazePAM 0.5MG TABLET 0.5 MG PO (08:36)
[2023-11-20] MEDS: MAGNESIUM OXIDE 400MG TABLET 400 MG PO (08:57)
[2023-11-20] MEDS: MAGNESIUM SULFATE IN WATER 2 GM/50 ML PIGGYBACK IV (08:58)
[2023-11-20 09:25] LABS: Basophils # 0.1 K/mm3 (0-0.2); Basophils % 0.9 % (0.1-2.0); Eosinophils # 0.9 K/mm3 (0.0-0.4); Eosinophils % 9.4 % (0.1-12.0); Hematocrit 31.1 % (37.0-47.0); Hemoglobin 10.2 g/dL (12.2-16.2); Lymphocytes # 2.4 K/mm3 (0.7-4.5); Lymphocytes % 24.9 % (10-50); Mean Corpuscular HGB Conc 32.7 g/dL (31.8-35.4); Mean Corpuscular Hemoglobin 32.8 pg (27.0-31.2); Mean Corpuscular Volume 100.2 fl (81-99); Monocytes # 0.5 K/mm3 (0.1-1.0); Monocytes % 5.4 % (1.7-9.3); Neutrophils # 5.7 K/mm3 (1.8-7.8); Neutrophils % 59.5 % (37.0-80.0); Platelet Count 309 K/mm3 (142-424); Red Cell Distribution Width 13.2 % (11.5-17.5); White Blood Count 9.5 K/mm3 (4.8-10.8)
[2023-11-20] MEDS: humaLOG 100 UNITS/ML 3ML VIAL (SSI) SQ (10:29)
[2023-11-20 11:37] VITALS: BP 99/50; PULSE 79; RESP 18; TEMP 36.5; O2SAT 99
[2023-11-20] MEDS: METHOCARBAMOL 500MG TABLET 500 MG PO (12:10)
[2023-11-20] MEDS: SODIUM PHOS/BIPHOSPHATE FLEET 133ML ENEMA 133 ML RC (12:13)
--- NOTE | 2023-11-20 13:52 | PC.NURSE ---
Pt. is aware she could get a bill for using the ambulance and states she is okay with being billed.
[2023-11-21 02:19] LABS: POC Glucose,Bedside 175 (70-110)
[2023-11-21 02:19] LABS: POC Glucose,Bedside 177 (70-110)
[2023-11-21 02:19] LABS: POC Glucose,Bedside 186 (70-110)
[2023-11-21 02:19] LABS: POC Glucose,Bedside 206 (70-110)
--- NOTE | 2023-11-21 14:52 | CARE MANAGER ---
Spoke with patient's caregiver as patient is asleep. They have medication and are aware of follow up appointment. SHARRI Andrews
== END 2023-11-20 14:47 | disposition home health service (06) ==
LOC: ER 18:35 → 2ND 20:00
PROVIDERS: Nurse Practitioner Acute Care; Admitting Provider Internal Medicine Adolescent Medicine; Emergency Provider Student in an Organized Health Care Education/Training Program; Visit Provider Internal Medicine Adolescent Medicine
DX: N17.9 Acute kidney failure, unspecified (principal); N30.01 Acute cystitis with hematuria; E87.5 Hyperkalemia; R53.81 Other malaise; L89.321 Pressure ulcer of left buttock, stage 1; E11.40 Type 2 diabetes mellitus with diabetic neuropathy, unspecified; Z79.4 Long term (current) use of insulin; E66.01 Morbid (severe) obesity due to excess calories; Z68.41 Body mass index [BMI] 40.0-44.9, adult; J44.9 Chronic obstructive pulmonary disease, unspecified; I10 Essential (primary) hypertension; E03.9 Hypothyroidism, unspecified; Z86.16 Personal history of COVID-19; Z79.899 Other long term (current) drug therapy; E55.9 Vitamin D deficiency, unspecified; I69.351 Hemiplegia and hemiparesis following cerebral infarction affecting right dominant side
CPT/HCPCS: 36415; 71045; 80053; 80061; 81001; 82962; 83036; 83735; 84443; 85025; 87086; 87636; 94640; 97163; 97165; 99285; G0378; J0696; J3475

== ENCOUNTER 2023-11-26 12:02 | Outpatient (CLI) | payer MEDICARE, MEDICAID, SELFPAY ==
--- NOTE | 2023-11-26 12:15 | PC.NURSE ---
Picc line nurse at placing mid line.
[2023-11-26] MEDS: ERTAPENEM SODIUM 1 GM in 0.9 % SODIUM CHLORIDE 50 ML IV (14:17)
[2023-11-26] MEDS: APAP/HYDROCODONE 325MG/7.5MG TAB 1 TAB PO (14:55)
--- NOTE | 2023-11-26 15:10 | PC.NURSE ---
[facility] called for transportation home.
== END 2023-11-26 16:15 | disposition home or self-care (01) ==
PROVIDERS: PCP Physician Assistant; Visit Provider Physician Assistant
DX: Z45.2 Encounter for adjustment and management of vascular access device (principal); N17.9 Acute kidney failure, unspecified; N30.01 Acute cystitis with hematuria; E87.5 Hyperkalemia; R53.81 Other malaise; B96.89 Other specified bacterial agents as the cause of diseases classified elsewhere
CPT/HCPCS: 36410; 36569; J1335

== ENCOUNTER 2023-12-08 17:23 | Outpatient (CLI) | payer MEDICARE, MEDICAID, SELFPAY ==
[2023-12-08 17:35] LABS: Microscopic, Urine URINE MICROSCOPIC (MICROSCOPIC)
[2023-12-08 18:04] LABS: Appearance,Urine CLEAR (Clear); Bilirubin,Urine Negative (Negative); Blood, Urine Negative (Negative); Color,Urine YELLOW (Yellow); Glucose,Urine (UA) Negative (Negative); Ketones,Urine Negative (Negative); Leukocyte Esterase,Urine Negative (Negative); Nitrate,Urine Negative (Negative); PH,Urine 6.5 (5.0-8.5); Protein,Urine TRACE (Negative); Specific Gravity, Urine 1.015 (1.005-1.030); Urobilinogen,Urine 0.2 EU/dl (0.2)
[2023-12-08 18:08] LABS: Squamous Epithelial Cell,Urine Occasional #/hpf (0-5)
== END 2023-12-08 23:59 ==
LOC: LAB.DROPOF 17:24
PROVIDERS: PCP Physician Assistant; Visit Provider Physician Assistant
DX: R39.9 Unspecified symptoms and signs involving the genitourinary system (principal)
CPT/HCPCS: 81001

== ENCOUNTER 2024-05-22 16:47 | Emergency (ER) | payer MEDICARE, MEDICAID, SELFPAY ==
[2024-05-22] VITALS (8 sets, daily range): BP systolic 116–139; BP diastolic 51–91; PULSE 73–78; RESP 18; TEMP 36.7–36.9; O2SAT 91–97; BMI 39.4
--- NOTE | 2024-05-22 16:50 | XR_ITS ---
PROCEDURE INFORMATION: Exam: XR Right Tibia and Fibula Exam date and time: 05/22/2024 4:50 PM Age: 58 years old Clinical indication: Pain; Lower leg; Right; Additional info: Injury to R du, pain, swelling TECHNIQUE: Imaging protocol: Radiologic exam of the right tibia and fibula. Views: 2 views. COMPARISON: CR XR TIBIA FIBULA RT 2V 07/05/2022 12:33 FINDINGS: Bones/joints: At least moderate demineralization of the bones. This limits evaluation for nondisplaced fractures. Soft tissues: Mild anterior soft tissue swelling of the upper calf. Vasculature: Vascular calcifications. IMPRESSION: At least moderate demineralization of the bones. This limits evaluation for nondisplaced fractures. Within the limitations of the study, no acute fracture or dislocation.
--- NOTE | 2024-05-22 16:50 | XR_ITS ---
PROCEDURE INFORMATION: Exam: XR Right Knee Exam date and time: 05/22/2024 4:50 PM Age: 58 years old Clinical indication: Pain; Knee; Right; Additional info: Injury to R du, pain, swelling TECHNIQUE: Imaging protocol: Radiologic exam of the right knee. Views: 3 views. COMPARISON: CT KNEE RT WO CON 08/05/2022 05:51 FINDINGS: Bones/joints: Intramedullary mary kay in the femur with distal fixation screws. Hardware appears intact. Age-indeterminate irregularity of the lateral tibial plateau. Mild tricompartmental osteoarthrosis of the knee. Soft tissues: Anterior soft tissue swelling. Vasculature: Vascular calcifications. IMPRESSION: Age-indeterminate irregularity of the lateral tibial plateau. No joint effusion. If there is high clinical suspicion for occult fracture, consider CT.
--- NOTE | 2024-05-22 16:52 | HMH.EDGENADL ---
Discharge Plan Disposition Patient Disposition: Home, Self-Care Condition: Good Prescriptions Prescriptions: New sulfamethoxazole-trimethoprim [Bactrim DS] 800-160 mg tablet 1 tab PO DAILY 14 Days Qty: 14 0RF No Action cranberry 500 mg capsule 500 mg PO BIDWMEAL mupirocin calcium 2 % cream 1 applic topical QID Qty: 30 1RF zinc oxide 12 % cream 1 applic topical QID Qty: 57 1RF ropinirole 0.25 mg tablet 0.25 mg PO HS Qty: 90 0RF Rx Instructions: Administer 1-3 hours before bedtime bupropion HCl [Wellbutrin SR] 150 mg tablet sustained-release 12 hr 150 mg PO DAILY 30 Days Qty: 30 2RF (DME) ReliOn Prime Test Strips Strip See Rx Instructions .Route Qty: 100 2RF Rx Instructions: As directed or bid lidocaine [Lidoderm] 5 % adhesive patch,medicated 1 patch topical DAILY Qty: 30 5RF Rx Instructions: Leave on most painful area for up to 12 hours, then remove. (DME) blood-glucose meter [Advanced Glucose Meter] Misc See Rx Instructions .Route Qty: 1 0RF Rx Instructions: As directed or once daily (DME) lancets 30 gauge misc See Rx Instructions .Route Qty: 200 0RF Rx Instructions: Check sugar once daily or As directed nystatin 100,000 unit/gram powder 1 applic topical QID Qty: 60 4RF Coricidin HBP Chest Mike-Cough 10-200 mg capsule 1 tab-cap PO Q8H 10 Days Qty: 30 0RF methylprednisolone [Medrol (Maikel)] 4 mg tablets,dose pack See Rx Instructions PO PER PKG DIR Qty: 21 0RF Rx Instructions: PO PER PKG DIR magnesium oxide 400 mg (241.3 mg magnesium) tablet 400 mg PO BID 90 Days Qty: 180 0RF aspirin [Enteric Coated Aspirin] 81 mg tablet,delayed release (DR/EC) 81 mg PO DAILY Qty: 1 0RF ondansetron 4 mg tablet,disintegrating 4 mg PO Q8HP PRN (Reason: Nausea And Vomiting) Qty: 30 3RF cholecalciferol (vitamin D3) 1,250 mcg (50,000 unit) capsule 1,250 mcg PO WEEKLY Qty: 12 3RF duloxetine 60 mg capsule,delayed release(DR/EC) 60 mg PO DAILY Qty: 90 0RF nitrofurantoin monohyd/m-cryst [Macrobid] 100 mg capsule 100 mg PO BID 7 Days Qty: 14 0RF Rx Instructions: must administer with a meal/food nitrofurantoin macrocrystal 100 mg capsule 100 mg PO BID 4 Days Qty: 8 0RF (DME) lancets [TRUEplus Lancets] 33 gauge misc See Rx Instructions .Route Qty: 200 1RF Rx Instructions: test sugar three times daily or As directed semaglutide 1 mg/dose (4 mg/3 mL) pen injector 1 mg SQ WEEKLY Qty: 3 3RF mirtazapine 15 mg tablet See Rx Instructions .ROUTE .COMPLEX Qty: 30 2RF Dose Instruction: TAKE 1 TABLET BY MOUTH EVERY NIGHT AT BEDTIME Rx Instructions: TAKE 1 TABLET BY MOUTH EVERY NIGHT AT BEDTIME (DME) True Metrix Glucose Test Strip Strip See Rx Instructions .ROUTE .COMPLEX Qty: 200 0RF Dose Instruction: TEST BLOOD SUGAR THREE TIMES DAILY Rx Instructions: TEST BLOOD SUGAR THREE TIMES DAILY quetiapine 25 mg tablet See Rx Instructions .ROUTE .COMPLEX Qty: 30 2RF Dose Instruction: TAKE 1 TABLET BY MOUTH EVERY NIGHT AT BEDTIME Rx Instructions: TAKE 1 TABLET BY MOUTH EVERY NIGHT AT BEDTIME carvedilol 3.125 mg tablet 3.125 mg PO BIDWMEAL Qty: 180 2RF famotidine 20 mg tablet 20 mg PO DAILY Qty: 90 3RF Xarelto 2.5 mg tablet 2.5 mg PO BID 90 Days Qty: 180 0RF buspirone 15 mg tablet See Rx Instructions .ROUTE .COMPLEX Qty: 90 0RF Dose Instruction: TAKE 1 TABLET BY MOUTH THREE TIMES A DAY FOR ANXIETY Rx Instructions: TAKE 1 TABLET BY MOUTH THREE TIMES A DAY FOR ANXIETY furosemide 40 mg tablet 40 mg PO DAILY insulin glargine [Lantus U-100 Insulin] 100 unit/mL solution 10 unit SQ HS cholecalciferol (vitamin D3) 50 mcg (2,000 unit) capsule 50 mcg PO DAILY lisinopril 10 mg Tablet 10 mg PO DAILY melatonin 10 mg Tablet 10 mg PO HS budesonide-formoterol [Symbicort] 160-4.5 mcg/actuation HFA aerosol inhaler 2 puff inhalation Q12H albuterol sulfate 90 mcg/actuation HFA aerosol inhaler 2 puff INHALATION Q4HP PRN (Reason: Shortness Of Breath) atorvastatin 80 mg tablet 80 mg PO HS sennosides 8.6 mg tablet 17.2 mg PO HS polyethylene glycol 3350 [Miralax] 17 gram powder in packet 17 g PO DAILY acetaminophen [Tylenol Extra Strength] 500 mg tablet 1,000 mg PO Q6HP PRN (Reason: Headache and Pain ) levothyroxine 150 mcg tablet 150 mcg PO AM ketoconazole 2 % cream 1 applic topical BID Novolin 70-30 FlexPen U-100 100 unit/mL (70-30) insulin pen 30 unit SQ AM Referrals Follow up/Referrals: Suzi Burns PA [Primary Care Provider] - See instructions Activity Restrictions/Add. Instructions Additional Instructions/Restrictions: You were evaluated in the Emergency Department today. Please pick and shovel man your prescription for antibiotic at the pharmacy and take the full course as prescribed. Keep the wound clean and dry. Follow up closely with primary care for wound recheck. Return to the ED for new or worsening symptoms. Clinical Impressions Clinical Impression: Infection of hematoma of wound Instructions Patient Instructions: DI for Hematoma (Bruise), DI for Incision and Drainage of a Skin Abscess Discharge ED Provider: Denisse Kincaid General Adult HPI General Chief complaint: Extremity Injury, Lower Stated complaint: Knee pain Time Seen by Provider: 05/22/24 16:50 History of Present Illness HPI narrative: This patient is a 58-year-old female with very complex past medical history including prior CVA with right-sided paralysis, left BKA, hypertension, hyperlipidemia, COPD, CAD, hypothyroidism, peripheral vascular disease, type 2 diabetes, hypertensive heart disease, and sacral pressure wound presenting to the emergency department for evaluation with concern for right lower leg injury. Patient reports that on Friday approximately 6 days ago, she was at [facility] when she accidentally rolled into a window in her wheelchair. She hit her right du. She has been doctoring it at home, putting lidocaine patches on it, however she has a large area of swelling that has opened up and started draining some purulent drainage. She has been trying to get in with her doctor but reports she does not have an appointment yet so she decided to come in here. No fevers, chills, or systemic symptoms noted. No other concerns noted at this time. Related Data Home Medications Medication Instructions Recorded Confirmed cholecalciferol (vitamin D3) 50 50 mcg PO DAILY 06/10/23 11/19/23 mcg (2,000 unit) capsule furosemide 40 mg tablet 40 mg PO DAILY 06/10/23 11/19/23 insulin glargine 100 unit/mL 10 unit SQ HS 06/10/23 11/19/23 subcutaneous solution (Lantus U-100 Insulin) lisinopril 10 mg tablet 10 mg PO DAILY 06/11/23 11/19/23 melatonin 10 mg tablet 10 mg PO HS 06/11/23 11/19/23 albuterol sulfate 90 mcg/actuation 2 puff inhalation Q4HP PRN 08/05/23 11/19/23 aerosol inhaler Shortness Of Breath budesonide-formoterol HFA 160 2 puff inhalation Q12H 08/05/23 11/19/23 mcg-4.5 mcg/actuation aerosol inhaler (Symbicort) cranberry 500 mg capsule 500 mg PO BIDWMEAL 10/09/23 11/19/23 acetaminophen 500 mg tablet 1,000 mg PO Q6HP PRN Headache and 11/19/23 11/19/23 (Tylenol Extra Strength) Pain atorvastatin 80 mg tablet 80 mg PO HS 11/19/23 11/19/23 insulin NPH-regular 70-30 U-100 30 unit SQ AM 11/19/23 11/19/23 insulin 100 unit/mL subcutaneous pen (Novolin 70-30 FlexPen U-100 Insulin) ketoconazole 2 % topical cream 1 applic topical BID Lesion on 11/19/23 11/19/23 chest levothyroxine 150 mcg tablet 150 mcg PO AM 11/19/23 11/19/23 polyethylene glycol 3350 17 gram 17 g PO DAILY 11/19/23 11/19/23 oral powder packet (Miralax) sennosides 8.6 mg tablet 17.2 mg PO HS 11/19/23 11/19/23 Previous Rx's Medication Instructions Recorded ropinirole 0.25 mg tablet 0.25 mg PO HS #90 tabs 09/16/23 mupirocin calcium 2 % topical cream 1 applic topical QID #30 grams 10/09/23 zinc oxide 12 % topical cream 1 applic topical QID #57 grams 10/09/23 bupropion HCl 150 mg tablet,12 hr 150 mg PO DAILY 30 days #30 ea 10/22/23 sustained-release (Wellbutrin SR) blood sugar diagnostic (ReliOn #100 ea 10/23/23 Prime Test Strips) lidocaine 5 % topical patch 1 patch topical DAILY #30 ea 11/13/23 (Lidoderm) blood-glucose meter (Advanced #1 ea 12/17/23 Glucose Meter) lancets 30 gauge #200 ea 12/17/23 nystatin 100,000 unit/gram topical 1 applic topical QID #60 grams 12/23/23 powder dextromethorphan-guaifenesin 10 1 tab-cap PO Q8H congestion 10 01/01/24 mg-200 mg capsule (Coricidin HBP days #30 caps Chest Congestion-Cough) magnesium oxide 400 mg (241.3 mg 400 mg PO BID deficiency 90 days 01/01/24 magnesium) tablet #180 tabs methylprednisolone 4 mg tablets in See Rx Instructions PO PER PKG DIR 01/01/24 a dose pack (Medrol (Maikel)) #21 tabs aspirin 81 mg tablet,delayed 81 mg PO DAILY #1 tab 01/05/24 release (Enteric Coated Aspirin) cholecalciferol (vitamin D3) 1,250 1,250 mcg PO WEEKLY #12 caps 01/05/24 mcg (50,000 unit) capsule ondansetron 4 mg disintegrating 4 mg PO Q8HP PRN Nausea And 01/05/24 tablet Vomiting #30 tabs duloxetine 60 mg capsule,delayed 60 mg PO DAILY Depression #90 caps 01/23/24 release nitrofurantoin 100 mg PO BID 7 days #14 caps 02/03/24 monohydrate/macrocrystals 100 mg capsule (Macrobid) nitrofurantoin macrocrystal 100 mg 100 mg PO BID 4 days #8 caps 02/10/24 capsule lancets 33 gauge (TRUEplus Lancets) #200 ea 02/19/24 semaglutide 1 mg/dose (4 mg/3 mL) 1 mg (0.75 mL) SQ WEEKLY Diabetes 02/20/24 subcutaneous pen injector #3 mL mirtazapine 15 mg tablet See Rx Instructions .Route 03/29/24 .COMPLEX #30 tabs blood sugar diagnostic (True #200 strips 04/08/24 Metrix Glucose Test Strip) quetiapine 25 mg tablet See Rx Instructions .Route 04/19/24 .COMPLEX #30 tabs carvedilol 3.125 mg tablet 3.125 mg PO BIDWMEAL #180 tabs 04/28/24 famotidine 20 mg tablet 20 mg PO DAILY #90 tabs 04/28/24 rivaroxaban 2.5 mg tablet (Xarelto) 2.5 mg PO BID DVT prophylaxis 90 05/10/24 days #180 tabs buspirone 15 mg tablet See Rx Instructions .Route 05/19/24 .COMPLEX #90 tabs sulfamethoxazole 800 1 tab PO DAILY 14 days #14 tabs 05/22/24 mg-trimethoprim 160 mg tablet (Bactrim DS) Allergies Allergy/AdvReac Type Severity Reaction Status Date / Time protamine Allergy Verified 10/09/23 14:14 [facility] Disclaimer: The information contained in this section may have been updated after the patient was seen, as this information can be updated by other users. Medical History Acute cystitis Diabetes COPD (chronic obstructive pulmonary disease) Hyperlipidemia Hypertension Sacral pressure ulcer UTI due to extended-spectrum beta lactamase (ESBL) producing Escherichia coli Right sided weakness Depression Obesity Right flaccid hemiplegia Urinary tract infection due to Proteus Urinary tract infection due to Klebsiella species Diastolic dysfunction PAD (peripheral artery disease) CVA (cerebral vascular accident) CAD (coronary artery disease) Hypotension Pre-op evaluation Nasal fracture Right femoral fracture Dehydration Anxiety and depression Acute bronchitis Ulcer of right foot due to type 2 diabetes mellitus Onychocryptosis Onychomycosis Encounter for wound care Pyelonephritis Sepsis Fall Tibial plateau fracture, right MRSA (methicillin resistant staph aureus) culture positive Foot abscess, right Diabetic foot infection Blister of foot 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) Obesity Syncope Abnormal nuclear stress test Diastolic dysfunction HTN (hypertension) CAD (coronary artery disease) SOB (shortness of breath) Angina pectoris CHF (congestive heart failure) Diabetic ulcer of right heel associated with diabetes mellitus due to underlying condition, limited to breakdown of skin Ulcer of right foot due to type 2 diabetes mellitus Left-sided weakness BKA stump complication Respiratory failure COVID-19 Gangrene of left foot Cellulitis of right foot Encounter for wound care Neuropathy Ulcer of left foot due to type 2 diabetes mellitus Cellulitis of left foot Amputation of one or more toes Infected wound Diabetic Foot Ulcer Abnormal ankle brachial index (NICOLAS) Recent cerebrovascular accident (CVA) History of CVA (cerebrovascular accident) 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 Decreased pedal pulses Edema of left lower extremity Diabetic foot Onychodystrophy Onychomycosis PVD (peripheral vascular disease) Keratosis Contusion of ribs Claudication Left leg swelling Pre-ulcerative calluses Pain due to onychomycosis of toenail Onychogryphosis Microalbuminuric diabetic nephropathy Hypothyroidism Varicose veins of both lower extremities COPD with exacerbation Smoker Low back pain Hypoxia Wheezing Diabetic neuropathy, type II diabetes mellitus Vitamin D deficiency Anxiety Peripheral arterial occlusive disease Diabetes mellitus Hyperlipidemia Hypertensive heart disease without heart failure Coronary arteriosclerosis Dyspnea Surgical History History of hip surgery History of left below knee amputation S/P BKA (below knee amputation) unilateral Status post foot surgery History of amputation of left great toe Family History Other Breast cancer Diabetes Heart attack Heart disease Hypothyroid Renal disease Stroke Social History Smoking Status: Former smoker tobacco type: cigarettes packs per day: 1 second hand exposure: Yes alcohol intake: never substance use type: denies use current occupational status: disabled Travel in the last 8 weeks: None household members: none housing: longterm current occupational exposures/hazards: No caffeine: No ROS Obtained: Yes All systems reviewed & no additional complaints except as documented Physical Exam General General appearance: alert, in no apparent distress and obese Head Head exam: atraumatic and normocephalic Eye Eye exam: Present normal appearance, PERRL and EOMI ENT ENT exam: Present normal exam, normal oropharynx, mucous membranes moist and normal external ear exam Neck Neck exam: Present normal inspection, full ROM and trachea midline; Absent tenderness Chest Chest inspection: Present normal inspection and symmetric chest wall rise; Absent tenderness Respiratory Respiratory exam: Present normal lung sounds bilaterally; Absent respiratory distress, wheezes, stridor or accessory muscle use Cardiovascular Cardiovascular exam: Present regular rate and normal rhythm Abdominal Exam Abdominal exam: Present soft; Absent distention, tenderness or guarding Extremities Exam Extremities exam: Present normal capillary refill and other (prior L BKA. Hematoma to R du 4cm below R knee with small open wound, minor purulent drainage. No significant surrounding erythema/streaking. At neurologic baseline, cap refill intact.); Absent edema Back Exam Back exam: Present normal inspection and full ROM; Absent tenderness Neurological Exam Neurological exam: Present alert, oriented X3 and other (At her baseline); Absent motor sensory deficit Psychiatric Psychiatric exam: Present normal affect and normal mood Skin Skin exam: Present warm and dry Medical Decision Making Medical Records Medical records reviewed: Yes I reviewed the patient's medical records. Edgar Inquiry Pt receiving controlled substance: No Vital Signs: 05/22/24 16:47 05/22/24 16:52 05/22/24 17:01 Temperature 98.0 F Temperature Source Oral Pulse Rate Pulse Rate [Right] 78 Respiratory Rate 18 Blood Pressure 138/61 116/51 L Blood Pressure [Left Arm] 116/51 L Blood Pressure Mean 70 72 Blood Pressure Mean [Left Arm] 72 Blood Pressure Source [Left Arm] Automatic Cuff 02 Sat by Pulse Oximetry 97 Oxygen Delivery Method Room Air 05/22/24 17:31 05/22/24 18:01 05/22/24 18:31 Temperature Temperature Source Pulse Rate 78 78 74 Pulse Rate [Right] Respiratory Rate 18 Blood Pressure 133/61 139/91 H 125/55 L Blood Pressure [Left Arm] Blood Pressure Mean 71 106 98 Blood Pressure Mean [Left Arm] Blood Pressure Source [Left Arm] 02 Sat by Pulse Oximetry 91 L 95 94 L Oxygen Delivery Method Room Air Room Air 05/22/24 19:02 Temperature Temperature Source Pulse Rate 73 Pulse Rate [Right] Respiratory Rate Blood Pressure 138/69 Blood Pressure [Left Arm] Blood Pressure Mean Blood Pressure Mean [Left Arm] Blood Pressure Source [Left Arm] 02 Sat by Pulse Oximetry 94 L Oxygen Delivery Method Lab Data Lab results reviewed: Yes I reviewed the patient's lab results. Orders (Tests/Meds): ED MEDICATIONS Discontinued Medications Generic Name Dose Route Start Last Admin Trade Name Freq PRN Reason Stop Dose Admin Acetaminophen 1,000 mg 05/22/24 18:41 05/22/24 18:50 Acetaminophen 500mg Tab PO 05/22/24 18:42 1,000 mg ONCE ONE Administration Trimethoprim/Sulfamethoxazole 1 each 05/22/24 18:41 05/22/24 18:50 Sulfa/Trimethoprim 1 Tablet PO 05/22/24 18:42 1 each ONCE ONE Administration ORDERS Category Date Time Status POCUS Point of Care (ER Only) Stat Exams 05/22/24 16:50 Taken XR knee RT 3V Stat Exams 05/22/24 16:50 Completed XR tibia fibula RT 2V Stat Exams 05/22/24 16:50 Completed Medical Decision Narrative: In summary, this patient is a 58-year-old female presenting to the Emergency Department for evaluation of right lower leg injury. Differential diagnoses considered include but are not limited to fracture, contusion, strain/sprain, hematoma, cellulitis, abscess. Ruling out the most morbid conditions drove assessment. It should be noted patient's history includes extensive cardiovascular and other medical history as per HPI which may or may not be at goal therapy. This complicates all aspects of care by increasing patient's risk for morbidity. On exam, the patient is resting comfortably in bed in no acute distress. She denies any concerns or complaints aside from her right lower leg injury. She does have a chronic sacral wound, which appears to be stage II with no obvious evidence of infection on clinical exam which would require other intervention at this time. She already has home health caring for this at home. She is at her neurologic baseline with no systemic symptoms. She has a large hematoma to her right lower leg with concerns for possible mild purulent drainage. Workup included x-rays of the right lower leg and knee as well as bedside [id number] ultrasound. I independently interpreted x-ray prior to the radiologist read and noted no obvious acute fracture at the site of the injury. Please see their read for final interpretation. Radiology noted possible age-indeterminate deformity of the lateral tibial plateau, however patient has no pain or injury there, it is all mostly in her du below her knee. Given this, I am not concerned about tibial plateau fracture, especially given the low mechanism of injury, and I did not order CT scan. Bedside [id number] ultrasound was performed which demonstrated a soft tissue fluid collection very superficially. This is at the site of the hematoma, however given that she has some purulent drainage, I am concerned for infected hematoma and would like to proceed with drainage at this time. Risk versus benefit was explained to the patient, especially the risk of bleeding given that this is a hematoma. She expressed understanding agreement would like to proceed with drainage. She was given oral Bactrim for antibiotic treatment. With incision and drainage, patient initially had of very scant amount of purulent drainage but then turned bloody. Was not able to evacuate some of the congealed hematoma, as it was already firm underneath the skin. At this time, I feel that she is appropriate for discharge home with oral Bactrim and close follow-up for wound reassessment. She was given instructions for wound care and strict return precautions. She was discharged after all questions were answered. Procedures Risk/Benefits of Procedure(s) Were Explained: Yes Abscess I/D Site: lower extremity Side (if applicable): right Sedation/analgesia: none Technique: incised with #11 blade Amount of fluid expressed (mL): 15 (Initially purulent, then bloody with slow bloody ooze) Irrigation: Yes Packing used?: none Limited Ultrasound Findings:: Limited soft tissue ultrasound Indication: Soft tissue swelling Identified structures: Location: Right lower leg Findings: Large fluid collection noted, hematoma versus abscess but favor infected abscess given purulent drainage Impression: Abscess/hematoma of soft tissue Images were saved to permanent archive The study was technically adequate Soft Tissue CPT Codes: CPT Lower Extremity: 47714-86 This study was performed by me, and I personally interpreted all images/videos. Based on my clinical judgement, these images were adequate and did not necessitate further imaging. Critical Care Critical Care Time Critical Care Time: No
--- NOTE | 2024-05-22 16:54 | PC.NURSE ---
XR AT BEDSIDE
--- NOTE | 2024-05-22 18:40 | PC.NURSE ---
consent signed for I and D procedure on patient chart
[2024-05-22] MEDS: SULFA/TRIMETHOPRIM 1 TABLET 1 EACH PO (18:50)
[2024-05-22] MEDS: ACETAMINOPHEN 500MG TAB 1000 MG PO (18:50)
--- NOTE | 2024-05-22 19:37 | PC.NURSE ---
EMS notified of need for transport home
== END 2024-05-22 20:49 | disposition home or self-care (01) ==
PROVIDERS: Emergency Provider Emergency Medicine; PCP Physician Assistant
DX: L02.415 Cutaneous abscess of right lower limb (principal); S80.11XA Contusion of right lower leg, initial encounter; W22.8XXA Striking against or struck by other objects, initial encounter; E11.9 Type 2 diabetes mellitus without complications; Z79.4 Long term (current) use of insulin; Z79.85 Long-term (current) use of injectable non-insulin antidiabetic drugs
CPT/HCPCS: 10060; 73562; 73590; 99284

== ENCOUNTER 2024-05-28 16:20 | Outpatient (CLI) | payer MEDICARE, MEDICAID, SELFPAY ==
[2024-05-28 16:51] LABS: Chloride 95 mmol/L (98-107)
[2024-05-28 16:52] LABS: Potassium 4.8 mmoL/L (3.5-5.1); Sodium 137 mmol/L (136-145)
[2024-05-28 16:54] LABS: Alanine Aminotransferase 13 U/L (12-78); Anion Gap 13.8 mEq/L (5-15); Aspartate Amino Transferase 21 U/L (14-36); Blood Urea Nitrogen 27 mg/dl (7-17); Carbon Dioxide 33 mmol/L (22.0-30.0); Estimated Glomerular Filt Rate 57 ml/min (>60); GFR (African American) 69 ML/MIN (>60)
[2024-05-28 16:55] LABS: Albumin Level 3.6 g/dl (3.5-5.0); Albumin/Globulin Ratio 1.1 (1.1-1.8); Alkaline Phosphatase 156 U/L (38-126); Bilirubin,Total 0.2 mg/dl (0.2-1.3); Calcium 9.4 mg/dl (8.4-10.2); Chol/HDL Ratio 3.3 (1-3.5); Cholesterol 167 mg/dl (140-200); Globulin 3.2 g/dL (1.3-3.2); Glucose 248 mg/dl (74-100); HDL Cholesterol 51 mg/dl (40-60); Total Protein,Serum 6.8 g/dl (6.3-8.2); Triglycerides 244 mg/dl (30-150); VLDL Cholesterol 49 mg/dL (0-40)
[2024-05-28 16:56] LABS: Basophils # 0.1 K/mm3 (0-0.2); Basophils % 0.9 % (0.1-2.0); Eosinophils # 0.8 K/mm3 (0.0-0.4); Eosinophils % 6.8 % (0.1-12.0); Hematocrit 36.9 % (37.0-47.0); Hemoglobin 11.7 g/dL (12.2-16.2); Lymphocytes # 2.8 K/mm3 (0.7-4.5); Lymphocytes % 25.1 % (10-50); Mean Corpuscular HGB Conc 31.7 g/dL (31.8-35.4); Mean Corpuscular Hemoglobin 31.5 pg (27.0-31.2); Mean Corpuscular Volume 99.4 fl (81-99); Mean Platelet Volume 9.2 fl (7.4-10.4); Monocytes # 0.5 K/mm3 (0.1-1.0); Monocytes % 4.7 % (1.7-9.3); Neutrophils % 62.5 % (37.0-80.0); Platelet Count 484 K/mm3 (142-424); Red Blood Count 3.71 M/mm3 (4.20-5.40); Red Cell Distribution Width 15.5 % (11.5-17.5); White Blood Count 11.2 K/mm3 (4.8-10.8)
[2024-05-28 17:06] LABS: Direct LDL Cholesterol 70.46 mg/dL (100-129)
[2024-05-28 17:12] LABS: 25-OH Vitamin D, Total 44.5 ng/mL (30-100)
[2024-05-28 17:26] LABS: Thyroid Stimulating Hormone 0.27 uIU/mL (0.465-4.68)
[2024-05-28 17:54] LABS: Hemoglobin A1C 10.2 % (4.0-6.0)
== END 2024-05-28 23:59 | disposition home or self-care (01) ==
LOC: LAB.DROPOF 16:20
PROVIDERS: PCP Physician Assistant; Visit Provider Physician Assistant
DX: E87.5 Hyperkalemia (principal); E11.40 Type 2 diabetes mellitus with diabetic neuropathy, unspecified; Z79.4 Long term (current) use of insulin; E78.5 Hyperlipidemia, unspecified; R53.83 Other fatigue; E11.9 Type 2 diabetes mellitus without complications; E55.9 Vitamin D deficiency, unspecified
CPT/HCPCS: 80050; 80053; 80061; 82306; 83036; 84443; 85025

== ENCOUNTER 2024-07-01 16:11 | Observation (INO) | payer MEDICARE, MEDICAID, SELFPAY ==
[2024-07-01] VITALS (11 sets, daily range): BP systolic 148–177; BP diastolic 66–95; PULSE 66–83; RESP 18–19; TEMP 36.5–36.8; O2SAT 92–98; BMI 33.7
--- NOTE | 2024-07-01 16:17 | ECG_ITS ---
APPROVED REPORT Exam: Resting ECG HR:77 bpm ECG Measurements Heart Rate 77 AXES NE 173 P 39 QRSd 98 QRS -6 QT 430 T 69 QTc 462 Conclusion SINUS RHYTHM LOW QRS VOLTAGE IN PRECORDIAL LEADS [QRS DEFLECTION < 1.0 mV IN CHEST LEADS] POSSIBLE ANTERIOR MYOCARDIAL INFARCTION , OF INDETERMINATE AGE [30 ms Q WAVE IN V3/V4, OR R < 0.2 mV IN V4] POSSIBLE INFERIOR MYOCARDIAL INFARCTION , PROBABLY OLD [30 ms Q WAVE IN II/aVF] ABNORMAL ECG Electronically signed by : DEMETRIA VILLEGAS, 07/02/2024 23:25:54
--- NOTE | 2024-07-01 17:59 | XR_ITS ---
PROCEDURE INFORMATION: Exam: XR Chest Exam date and time: 07/01/2024 6:00 PM Age: 58 years old Clinical indication: Dyspnea TECHNIQUE: Imaging protocol: Radiologic exam of the chest. Views: 1 view. COMPARISON: CR XR CHEST PORTABLE 07/11/2024 17:04 FINDINGS: Lungs: Low lung volumes with associated vascular crowding and bibasilar atelectasis. Pleural spaces: Unremarkable. No pleural effusion. No pneumothorax. Heart/Mediastinum: Unremarkable. No cardiomegaly. Vasculature: Tortuous thoracic aorta. Bones/joints: Unremarkable. Other findings: Evaluation is limited due to patient positioning. IMPRESSION: 1. Evaluation is limited due to patient positioning. 2. Low lung volumes with associated vascular crowding and bibasilar atelectasis. Superimposed left lung airspace disease cannot be entirely excluded.
--- NOTE | 2024-07-01 18:02 | HMH.EDGENADL ---
Discharge Plan Disposition Patient Disposition: Admitted Chief Complaint: Shortness of Breath/Dyspnea Prescriptions Prescriptions: No Action moxifloxacin [Vigamox] 0.5 % drops 1 drp ophthalmic (eye) TID 7 Days Qty: 3 0RF Calmoseptine 0.44-20.6 % ointment in packet 1 applic topical QID PRN (Reason: skin irritation) Qty: 80 0RF (DME) silicone,dressing-foam bandage 7 X 7 bandage See Rx Instructions .Route Qty: 60 0RF Rx Instructions: As directed buspirone 30 mg tablet 30 mg PO BID Qty: 60 2RF (DME) Vaseline Petrolatum Gauze 3 X 36 bandage See Rx Instructions .Route Qty: 72 0RF Rx Instructions: As directed (DME) gauze bandage [Band-Aid Gauze Pads] 4 X 4 bandage See Rx Instructions .Route Qty: 100 0RF Rx Instructions: As directed hydrocodone-acetaminophen 7.5-325 mg tablet 1 tab PO QID PRN (Reason: pain) Qty: 120 0RF hydrocodone-acetaminophen 7.5-325 mg tablet 1 tab PO Q6H PRN (Reason: pain) Qty: 120 0RF gabapentin 800 mg tablet 800 mg PO TID Qty: 90 2RF clonazepam 0.5 mg tablet 0.5 mg PO TID Qty: 90 1RF mupirocin calcium 2 % cream 1 applic topical QID Qty: 30 1RF zinc oxide 12 % cream 1 applic topical QID Qty: 57 1RF ropinirole 0.25 mg tablet 0.25 mg PO HS Qty: 90 0RF Rx Instructions: Administer 1-3 hours before bedtime (DME) ReliOn Prime Test Strips Strip See Rx Instructions .Route Qty: 100 2RF Rx Instructions: As directed or bid (DME) blood-glucose meter [Advanced Glucose Meter] Misc See Rx Instructions .Route Qty: 1 0RF Rx Instructions: As directed or once daily (DME) lancets 30 gauge misc See Rx Instructions .Route Qty: 200 0RF Rx Instructions: Check sugar once daily or As directed nystatin 100,000 unit/gram powder 1 applic topical QID Qty: 60 4RF magnesium oxide 400 mg (241.3 mg magnesium) tablet 400 mg PO BID 90 Days Qty: 180 0RF aspirin [Enteric Coated Aspirin] 81 mg tablet,delayed release (DR/EC) 81 mg PO DAILY Qty: 1 0RF ondansetron 4 mg tablet,disintegrating 4 mg PO Q8HP PRN (Reason: Nausea And Vomiting) Qty: 30 3RF (DME) lancets [TRUEplus Lancets] 33 gauge misc See Rx Instructions .Route Qty: 200 1RF Rx Instructions: test sugar three times daily or As directed quetiapine 25 mg tablet See Rx Instructions .ROUTE .COMPLEX Qty: 30 2RF Dose Instruction: TAKE 1 TABLET BY MOUTH EVERY NIGHT AT BEDTIME Rx Instructions: TAKE 1 TABLET BY MOUTH EVERY NIGHT AT BEDTIME carvedilol 3.125 mg tablet 3.125 mg PO BIDWMEAL Qty: 180 2RF famotidine 20 mg tablet 20 mg PO DAILY Qty: 90 3RF Xarelto 2.5 mg tablet 2.5 mg PO BID 90 Days Qty: 180 0RF levothyroxine 150 mcg tablet 150 mcg PO AM Qty: 90 3RF atorvastatin 80 mg tablet 80 mg PO HS Qty: 90 0RF (DME) True Metrix Glucose Test Strip Strip See Rx Instructions .ROUTE .COMPLEX Qty: 200 12RF Dose Instruction: TEST BLOOD SUGAR THREE TIMES DAILY Rx Instructions: TEST BLOOD SUGAR THREE TIMES DAILY cholecalciferol (vitamin D3) 1,250 mcg (50,000 unit) capsule 1,250 mcg PO WEEKLY Qty: 12 3RF lidocaine 5 % adhesive patch,medicated See Rx Instructions .ROUTE .COMPLEX Qty: 30 5RF Dose Instruction: APPLY 1 PATCH ON MOST PAINFUL AREA FOR UP TO 12 HOURS DAILY Rx Instructions: APPLY 1 PATCH ON MOST PAINFUL AREA FOR UP TO 12 HOURS DAILY mirtazapine 15 mg tablet See Rx Instructions .ROUTE .COMPLEX Qty: 30 2RF Dose Instruction: TAKE 1 TABLET BY MOUTH EVERY NIGHT AT BEDTIME Rx Instructions: TAKE 1 TABLET BY MOUTH EVERY NIGHT AT BEDTIME duloxetine 60 mg capsule,delayed release(DR/EC) 60 mg PO DAILY Qty: 30 2RF semaglutide 1 mg/dose (4 mg/3 mL) pen injector 1 mg SQ WEEKLY Qty: 3 3RF furosemide 40 mg tablet 40 mg PO DAILY insulin glargine [Lantus U-100 Insulin] 100 unit/mL solution 10 unit SQ HS cholecalciferol (vitamin D3) 50 mcg (2,000 unit) capsule 50 mcg PO DAILY lisinopril 10 mg Tablet 10 mg PO DAILY melatonin 10 mg Tablet 10 mg PO HS budesonide-formoterol [Symbicort] 160-4.5 mcg/actuation HFA aerosol inhaler 2 puff inhalation Q12H albuterol sulfate 90 mcg/actuation HFA aerosol inhaler 2 puff INHALATION Q4HP PRN (Reason: Shortness Of Breath) sennosides 8.6 mg tablet 17.2 mg PO HS polyethylene glycol 3350 [Miralax] 17 gram powder in packet 17 g PO DAILY acetaminophen [Tylenol Extra Strength] 500 mg tablet 1,000 mg PO Q6HP PRN (Reason: Headache and Pain ) ketoconazole 2 % cream 1 applic topical BID Novolin 70-30 FlexPen U-100 100 unit/mL (70-30) insulin pen 30 unit SQ AM sulfamethoxazole-trimethoprim [Bactrim DS] 800-160 mg tablet 1 tab PO DAILY 14 Days Qty: 14 0RF Referrals Follow up/Referrals: Suzi Burns PA [Primary Care Provider] - See instructions Clinical Impressions Clinical Impression: Dyspnea, Cystitis, History of ESBL E. coli infection Print Language Print Language: French Discharge ED Provider: Sindhu Cartagena General Adult HPI General Chief complaint: Shortness of Breath/Dyspnea Stated complaint: soa Time Seen by Provider: 07/01/24 17:23 Mode of Arrival: EMS Source of Information: Patient and EMS Limitations: No Limitations Description of Symptoms (Recalled from ER Triage Doc. by RN): per EMS the home health nurse called them because the pts oxygen saturation on her baseline 2LNC was 80%. Upon EMS arrival she was 94-95% on 2LNC. pt reports having some intermittant SOA, but denies SOA at this time. History of Present Illness HPI narrative: Patient is a 58-year-old who is bedbound requiring home health presents today with multiple complaints. States she has a history of COPD and heart failure and has had worsening cough shortness of breath and wheezing over the last few days. Her home health nurse stated that her oxygen saturations were low on her baseline 2 L nasal cannula and sent her in here primarily for that but also complaints about having foul-smelling urine and some dysuria. She has tried strokes in the past and is chronically paralyzed which is what has called her bedbound. She states that she is not willing to go back into a halfway her sister primarily takes care of her at home when she does not have home health. Related Data Home Medications ?Medication ?Instructions ?Recorded ?Confirmed cholecalciferol (vitamin D3) 50 50 mcg PO DAILY 06/10/23 05/28/24 mcg (2,000 unit) capsule furosemide 40 mg tablet 40 mg PO DAILY 06/10/23 05/28/24 insulin glargine 100 unit/mL 10 unit SQ HS 06/10/23 05/28/24 subcutaneous solution (Lantus U-100 Insulin) lisinopril 10 mg tablet 10 mg PO DAILY 06/11/23 05/28/24 melatonin 10 mg tablet 10 mg PO HS 06/11/23 05/28/24 albuterol sulfate 90 mcg/actuation 2 puff inhalation Q4HP PRN 08/05/23 05/28/24 aerosol inhaler Shortness Of Breath budesonide-formoterol HFA 160 2 puff inhalation Q12H 08/05/23 05/28/24 mcg-4.5 mcg/actuation aerosol inhaler (Symbicort) acetaminophen 500 mg tablet 1,000 mg PO Q6HP PRN Headache and 11/19/23 05/28/24 (Tylenol Extra Strength) Pain insulin NPH-regular 70-30 U-100 30 unit SQ AM 11/19/23 05/28/24 insulin 100 unit/mL subcutaneous pen (Novolin 70-30 FlexPen U-100 Insulin) ketoconazole 2 % topical cream 1 applic topical BID Lesion on 11/19/23 05/28/24 chest polyethylene glycol 3350 17 gram 17 g PO DAILY 11/19/23 05/28/24 oral powder packet (Miralax) sennosides 8.6 mg tablet 17.2 mg PO HS 11/19/23 05/28/24 Previous Rx's ?Medication ?Instructions ?Recorded ropinirole 0.25 mg tablet 0.25 mg PO HS #90 tabs 09/16/23 mupirocin calcium 2 % topical cream 1 applic topical QID #30 grams 10/09/23 zinc oxide 12 % topical cream 1 applic topical QID #57 grams 10/09/23 blood sugar diagnostic (ReliOn #100 ea 10/23/23 Prime Test Strips) blood-glucose meter (Advanced #1 ea 12/17/23 Glucose Meter) lancets 30 gauge #200 ea 12/17/23 nystatin 100,000 unit/gram topical 1 applic topical QID #60 grams 12/23/23 powder magnesium oxide 400 mg (241.3 mg 400 mg PO BID deficiency 90 days 01/01/24 magnesium) tablet #180 tabs aspirin 81 mg tablet,delayed 81 mg PO DAILY #1 tab 01/05/24 release (Enteric Coated Aspirin) ondansetron 4 mg disintegrating 4 mg PO Q8HP PRN Nausea And 01/05/24 tablet Vomiting #30 tabs lancets 33 gauge (TRUEplus Lancets) #200 ea 02/19/24 quetiapine 25 mg tablet See Rx Instructions .Route 04/19/24 .COMPLEX #30 tabs carvedilol 3.125 mg tablet 3.125 mg PO BIDWMEAL #180 tabs 04/28/24 famotidine 20 mg tablet 20 mg PO DAILY #90 tabs 04/28/24 rivaroxaban 2.5 mg tablet (Xarelto) 2.5 mg PO BID DVT prophylaxis 90 05/10/24 days #180 tabs sulfamethoxazole 800 1 tab PO DAILY 14 days #14 tabs 05/22/24 mg-trimethoprim 160 mg tablet (Bactrim DS) buspirone 30 mg tablet 30 mg PO BID #60 tabs 05/28/24 gauze bandage 4 X 4 (Band-Aid #100 ea 05/28/24 Gauze Pads) menthol 0.44 %-zinc oxide 20.6 % 1 applic topical QID PRN skin 05/28/24 topical ointment in packet irritation #80 grams (Calmoseptine) moxifloxacin 0.5 % eye drops 1 drp ophthalmic (eye) TID 7 days 05/28/24 (Vigamox) #3 mL silicone,dressing-foam bandage 7 #60 ea 05/28/24 X 7 white petrolatum 3 X 36 bandage #72 ea 05/28/24 (Vaseline Petrolatum Gauze) clonazepam 0.5 mg tablet 0.5 mg PO TID #90 tabs 06/01/24 gabapentin 800 mg tablet 800 mg PO TID #90 tabs 06/01/24 hydrocodone 7.5 mg-acetaminophen 1 tab PO Q6H PRN pain #120 tabs 06/01/24 325 mg tablet hydrocodone 7.5 mg-acetaminophen 1 tab PO QID PRN pain #120 tabs 06/01/24 325 mg tablet levothyroxine 150 mcg tablet 150 mcg PO AM #90 tabs 06/01/24 atorvastatin 80 mg tablet 80 mg PO HS #90 tabs 06/04/24 blood sugar diagnostic (True #200 strips 06/05/24 Metrix Glucose Test Strip) cholecalciferol (vitamin D3) 1,250 1,250 mcg PO WEEKLY #12 caps 06/08/24 mcg (50,000 unit) capsule lidocaine 5 % topical patch See Rx Instructions .Route 06/10/24 .COMPLEX #30 patches mirtazapine 15 mg tablet See Rx Instructions .Route 06/24/24 .COMPLEX #30 tabs duloxetine 60 mg capsule,delayed 60 mg PO DAILY #30 caps 06/29/24 release semaglutide 1 mg/dose (4 mg/3 mL) 1 mg (0.75 mL) SQ WEEKLY Diabetes 06/29/24 subcutaneous pen injector #3 mL Allergies Allergy/AdvReac Type Severity Reaction Status Date / Time protamine Allergy Verified 05/28/24 10:58 [facility] Disclaimer: The information contained in this section may have been updated after the patient was seen, as this information can be updated by other users. Medical History (Updated 07/01/24 @ 19:18 by Sindhu Cartagena MD) Anxiety Hyperlipidemia Hypertensive heart disease without heart failure Acute cystitis Diabetes COPD (chronic obstructive pulmonary disease) Hyperlipidemia Hypertension Sacral pressure ulcer UTI due to extended-spectrum beta lactamase (ESBL) producing Escherichia coli Right sided weakness Depression Obesity Right flaccid hemiplegia Urinary tract infection due to Proteus Urinary tract infection due to Klebsiella species Diastolic dysfunction PAD (peripheral artery disease) CVA (cerebral vascular accident) CAD (coronary artery disease) Hypotension Pre-op evaluation Nasal fracture Right femoral fracture Dehydration Anxiety and depression Acute bronchitis Ulcer of right foot due to type 2 diabetes mellitus Onychocryptosis Onychomycosis Encounter for wound care Pyelonephritis Sepsis Fall Tibial plateau fracture, right MRSA (methicillin resistant staph aureus) culture positive Foot abscess, right Diabetic foot infection Blister of foot 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) Obesity Syncope Abnormal nuclear stress test Diastolic dysfunction HTN (hypertension) CAD (coronary artery disease) SOB (shortness of breath) Angina pectoris CHF (congestive heart failure) Diabetic ulcer of right heel associated with diabetes mellitus due to underlying condition, limited to breakdown of skin Ulcer of right foot due to type 2 diabetes mellitus Left-sided weakness BKA stump complication Respiratory failure COVID-19 Gangrene of left foot Cellulitis of right foot Encounter for wound care Neuropathy Ulcer of left foot due to type 2 diabetes mellitus Cellulitis of left foot Amputation of one or more toes Infected wound Diabetic Foot Ulcer Abnormal ankle brachial index (NICOLAS) Recent cerebrovascular accident (CVA) History of CVA (cerebrovascular accident) 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 Decreased pedal pulses Edema of left lower extremity Diabetic foot Onychodystrophy Onychomycosis PVD (peripheral vascular disease) Keratosis Contusion of ribs Claudication Left leg swelling Pre-ulcerative calluses Pain due to onychomycosis of toenail Onychogryphosis Microalbuminuric diabetic nephropathy Hypothyroidism Varicose veins of both lower extremities COPD with exacerbation Smoker Low back pain Hypoxia Wheezing Diabetic neuropathy, type II diabetes mellitus Vitamin D deficiency Peripheral arterial occlusive disease Diabetes mellitus Coronary arteriosclerosis Dyspnea Surgical History History of hip surgery History of left below knee amputation S/P BKA (below knee amputation) unilateral Status post foot surgery History of amputation of left great toe Family History Other Breast cancer Diabetes Heart attack Heart disease Hypothyroid Renal disease Stroke Social History Smoking Status: Current every day smoker tobacco type: cigarettes packs per day: 1 second hand exposure: Yes alcohol intake: never substance use type: denies use current occupational status: disabled Travel in the last 8 weeks: None household members: none housing: halfway current occupational exposures/hazards: No caffeine: No ROS Obtained: Yes All systems reviewed & no additional complaints except as documented Physical Exam General General appearance: alert Respiratory Respiratory exam: Present wheezes and other (No significant respiratory distress there is some faint scant wheezing oxygen saturation to the mid 90s on 2 L nasal cannula no distress) Cardiovascular Cardiovascular exam: Present regular rate and normal rhythm Abdominal Exam Abdominal exam: Present soft; Absent distention or tenderness Neurological Exam Neurological exam: Present alert and oriented X3 Medical Decision Making Edgar Inquiry Pt receiving controlled substance: No Vital Signs: 07/01/24 16:15 07/01/24 16:19 07/01/24 16:30 Temperature 98.2 F Temperature Source Oral Pulse Rate 66 78 Pulse Rate [Left] 78 Respiratory Rate 18 Blood Pressure 150/82 H 175/90 H Blood Pressure [Right Arm] 150/82 H Blood Pressure Mean [Right Arm] 104 Blood Pressure Source [Right Arm] Automatic Cuff Blood Pressure Position [Right Arm] Sitting 02 Sat by Pulse Oximetry 95 95 92 L Oxygen Delivery Method Room Air Nasal Cannula Room Air Oxygen Flow Rate (LPM) 2 07/01/24 17:00 07/01/24 17:30 07/01/24 18:00 Temperature Temperature Source Pulse Rate 76 79 80 Pulse Rate [Left] Respiratory Rate Blood Pressure 152/84 H 176/79 H 177/76 H Blood Pressure [Right Arm] Blood Pressure Mean [Right Arm] Blood Pressure Source [Right Arm] Blood Pressure Position [Right Arm] 02 Sat by Pulse Oximetry 97 96 96 Oxygen Delivery Method Room Air Room Air Room Air Oxygen Flow Rate (LPM) 07/01/24 18:30 07/01/24 18:41 07/01/24 18:41 Temperature Temperature Source Pulse Rate 76 77 75 Pulse Rate [Left] Respiratory Rate Blood Pressure 164/95 H Blood Pressure [Right Arm] Blood Pressure Mean [Right Arm] Blood Pressure Source [Right Arm] Blood Pressure Position [Right Arm] 02 Sat by Pulse Oximetry 94 L Oxygen Delivery Method Oxygen Flow Rate (LPM) 07/01/24 19:00 Temperature Temperature Source Pulse Rate 79 Pulse Rate [Left] Respiratory Rate Blood Pressure 164/87 H Blood Pressure [Right Arm] Blood Pressure Mean [Right Arm] Blood Pressure Source [Right Arm] Blood Pressure Position [Right Arm] 02 Sat by Pulse Oximetry 95 Oxygen Delivery Method Oxygen Flow Rate (LPM) Lab Data Lab results reviewed: Yes I reviewed the patient's lab results. Lab Results 07/01/24 16:19: WBC 8.8, RBC 4.05 L, Hgb 12.4, Hct 41.6, MCV 102.8 H, MCH 30.7, MCHC 29.8 L, RDW 15.8, Plt Count 403, MPV 8.8, Neut % (Auto) 60.5, Lymph % (Auto) 28.6, Walker % (Auto) 5.5, Eos % (Auto) 4.3, Baso % (Auto) 1.1, Neut # (Auto) 5.3, Lymph # (Auto) 2.5, Walker # (Auto) 0.5, Eos # (Auto) 0.4, Baso # (Auto) 0.1, Sodium 135 L, Potassium 3.7, Chloride 95 L, Carbon Dioxide 37 H, Anion Gap 6.7, BUN 19 H, Creatinine 0.80, Estimated Creat Clear 126, Estimated GFR 74, Est GFR ( Amer) 89, Glucose 178 H, Calcium 9.0, Total Bilirubin 0.6, AST 41 H, ALT 21, Alkaline Phosphatase 114, Troponin I < 0.01, NT-Pro-B Natriuret Pep 44, Total Protein 7.3, Albumin 3.8, Globulin 3.5 H, Albumin/Globulin Ratio 1.1 07/01/24 18:09: SARS-CoV-2 (PCR) Not detected, Influenza A Untype (PCR) Not detected, Influenza Type B (PCR) Not detected 07/01/24 18:24: VBG pH 7.33, VBG pCO2 64.1 H, VBG pO2 34.2, VBG HCO3 32.8 H, VBG Total CO2 34.8 H, VBG O2 Saturation 60.3, VBG Base Excess 6.8 H, VBG Lactic Acid 3.2 H 07/01/24 18:43: Urine Color Yellow, Urine Appearance Clear, Urine pH 6.5, Ur Specific Hext 1.015, Urine Protein Trace, Urine Glucose (UA) Negative, Urine Ketones Negative, Urine Blood 2+, Urine Nitrate Negative, Urine Bilirubin Negative, Urine Urobilinogen 0.2, Ur Leukocyte Esterase 2+ A, Urine RBC 5-10, Urine WBC Tntc, Ur Squamous Epith Cells 10-20, Urine Bacteria 4+ 07/01/24 16:19 07/01/24 16:19 Orders (Tests/Meds): ED MEDICATIONS Generic Name Dose Route Start Last Admin Trade Name Freq PRN Reason Stop Dose Admin Ertapenem 1 gm/ Sodium 50 mls @ 100 mls/hr 07/01/24 19:15 Chloride IV 07/01/24 19:16 ONCE ONE Discontinued Medications Generic Name Dose Route Start Last Admin Trade Name Freq PRN Reason Stop Dose Admin Albuterol/Ipratropium 3 ml 07/01/24 17:59 07/01/24 18:41 Ipratropium/Albuterol 3 Ml Neb IH 07/01/24 18:00 3 ml ONCE ONE Administration Dexamethasone Sodium Phosphate 10 mg 07/01/24 17:59 07/01/24 18:34 Dexamethasone 4mg/Ml 1ml Vial IV 07/01/24 18:00 10 mg ONCE ONE Administration ORDERS Category Date Time Status CXR --portable [XR chest portable] Stat Exams 07/01/24 17:59 Completed BNP [NT Pro Brain Natriuretic Pep.] Stat Lab 07/01/24 16:19 Completed CBC w/Auto Diff [Complete Blood Count Auto Diff] Stat Lab 07/01/24 16:19 Completed CMP [Comprehensive Metabolic Panel] Stat Lab 07/01/24 16:19 Completed Rapid PCR Covid and Flu A/B Stat Lab 07/01/24 18:09 Completed Trop I [Troponin I] Stat Lab 07/01/24 16:19 Completed Troponin I Q3H Lab 07/01/24 21:00 Ordered Troponin I Q3H Lab 07/02/24 00:00 Ordered UA [Urinalysis and Microscopic] Stat Lab 07/01/24 18:43 Completed Urine Culture Stat Micro 07/01/24 18:43 Received Venous Blood Gas Stat RT 07/01/24 18:24 Completed Medical Decision Narrative: 58-year-old female presents today with a complaint including shortness of breath differential includes COPD exacerbation pneumonia heart failure etc. Will get a basic blood work panel and chest x-ray to further evaluate this. Also will get a cath UA to evaluate for possible urinary tract infection will reassess. Reassessment labs unremarkable chest x-ray performed to person interpreted shows no acute abnormality. 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 I presume that that is what is going on again today. Ertapenem has been initiated. Patient will need to be admitted for IV antibiotics given his history. I spoke with Anthony with hospital medicine who agreed to admit this patient for further evaluation and management Critical Care Critical Care Time Critical Care Time: No
[2024-07-01 18:10] LABS: Basophils # 0.1 K/mm3 (0-0.2); Basophils % 1.1 % (0.1-2.0); Eosinophils # 0.4 K/mm3 (0.0-0.4); Eosinophils % 4.3 % (0.1-12.0); Hematocrit 41.6 % (37.0-47.0); Hemoglobin 12.4 g/dL (12.2-16.2); Lymphocytes # 2.5 K/mm3 (0.7-4.5); Lymphocytes % 28.6 % (10-50); Mean Corpuscular HGB Conc 29.8 g/dL (31.8-35.4); Mean Corpuscular Hemoglobin 30.7 pg (27.0-31.2); Mean Corpuscular Volume 102.8 fl (81-99); Mean Platelet Volume 8.8 fl (7.4-10.4); Monocytes # 0.5 K/mm3 (0.1-1.0); Monocytes % 5.5 % (1.7-9.3); Neutrophils # 5.3 K/mm3 (1.8-7.8); Neutrophils % 60.5 % (37.0-80.0); Platelet Count 403 K/mm3 (142-424); Red Blood Count 4.05 M/mm3 (4.20-5.40); Red Cell Distribution Width 15.8 % (11.5-17.5); White Blood Count 8.8 K/mm3 (4.8-10.8)
[2024-07-01 18:23] LABS: NT Pro Brain Natriuretic Pep. 44 pg/mL (0-125)
[2024-07-01 18:25] LABS: Alanine Aminotransferase 21 U/L (12-78); Anion Gap 6.7 mEq/L (5-15); Aspartate Amino Transferase 41 U/L (14-36); Bilirubin,Total 0.6 mg/dl (0.2-1.3); Blood Urea Nitrogen 19 mg/dl (7-17); Carbon Dioxide 37 mmol/L (22.0-30.0); Chloride 95 mmol/L (98-107); Creatinine Clearance Estimated 126 mL/min (50-200); Estimated Glomerular Filt Rate 74 ml/min (>60); GFR (African American) 89 ML/MIN (>60); Glucose 178 mg/dl (74-100); Potassium 3.7 mmoL/L (3.5-5.1); Sodium 135 mmol/L (136-145); Total Protein,Serum 7.3 g/dl (6.3-8.2); Troponin I < 0.01 ng/ml (0.00-0.034)
[2024-07-01 18:26] LABS: Albumin Level 3.8 g/dl (3.5-5.0); Albumin/Globulin Ratio 1.1 (1.1-1.8); Alkaline Phosphatase 114 U/L (38-126); Globulin 3.5 g/dL (1.3-3.2)
[2024-07-01 18:28] LABS: Coronavirus 19, PCR Not Detected (NotDetected); Influenza A, PCR Not Detected (NotDetected); Influenza B, PCR Not Detected (NotDetected)
[2024-07-01] MEDS: DEXAMETHASONE 4MG/ML 1ML VIAL 10 MG IV (18:34)
[2024-07-01 18:38] LABS: VBG Base Excess 6.8 mmol/L (-2.4-2.3); VBG HCO3 32.8 mmol/L (23-30); VBG Oxygen Saturation 60.3 % (50-70); VBG PH 7.33 mmol/L (7.31-7.41); VBG PO2 34.2 mmol/L (28-40); VBG Total CO2 34.8 mmol/L (23-27)
[2024-07-01] MEDS: IPRATROPIUM/ALBUTEROL 3 ML NEB IH (18:41)
[2024-07-01 18:45] LABS: Lactate Venous 3.2 mmol/L (0.4-2.0); VBG PCO2 64.1 mmol/L (35-51)
[2024-07-01 18:48] LABS: Microscopic, Urine URINE MICROSCOPIC (MICROSCOPIC)
[2024-07-01 18:50] LABS: Appearance,Urine CLEAR (Clear); Bilirubin,Urine Negative (Negative); Blood, Urine 2+ (Negative); Color,Urine YELLOW (Yellow); Glucose,Urine (UA) Negative (Negative); Ketones,Urine Negative (Negative); Leukocyte Esterase,Urine 2+ (Negative); Nitrate,Urine Negative (Negative); PH,Urine 6.5 (5.0-8.5); Protein,Urine TRACE (Negative); Specific Gravity, Urine 1.015 (1.005-1.030); Urobilinogen,Urine 0.2 EU/dl (0.2)
[2024-07-01 19:01] LABS: Bacteria,Urine 4+ /lpf; WBC,Urine TNTC #/hpf (0-3)
--- NOTE | 2024-07-01 19:20 | PC.NURSE ---
Notified house credit control administrator of admission. Bed request. Provided patient with ice chips per patient request. No further needs expressed.
[2024-07-01] MEDS: ERTAPENEM SODIUM 1 GM in 0.9 % SODIUM CHLORIDE 50 ML IV (19:31)
--- NOTE | 2024-07-01 19:53 | PC.NURSE ---
patient arrived to floor via stretcher @19:52
--- NOTE | 2024-07-01 20:12 | P.HP_ITS ---
History of Present Illness *Admission Date: 07/01/24 *Reason for visit:: Abdominal pain *History of present illness: This is a 58-year-old female with past medical history of ESBL E. coli urine, HTN, HLD, CVA with resulting paralysis, chronic pain, obesity lower abdominal pain and shortness of breath. She reports worsening cough and shortness of breath the last few days. Home health nurse stated her oxygen saturations were low on her baseline 2 L nasal cannula so they sent her to her here for that evaluation but also patient reports of foul-smelling urine and dysuria. She also endorses 2 days of diarrhea, no vomiting. She denies fever, does endorse cough and shortness of breath. She is down at baseline secondary to paralysis. Does endorse healing decubitus ulcer as well. She recently was leaving the living facility but was discharged home recently or her sister is her primary major donor coordinator as well as home health. Emergency department workup notable for acute cystitis noted on urinalysis with positive leuk esterase, too numerous to count white blood cells and +4 bacteria. Chest x-ray without overload or acute abnormality. COVID flu negative. ABG with mildly elevated CO2. but pH WNL. Given her acute cystitis noted on evaluation, and history of ESBL, ertapenem was started and she was admitted to the hospital service [facility] Disclaimer: The information contained in this section may have been updated after the patient was seen, as this information can be updated by other users. Medical History Anxiety Hyperlipidemia Hypertensive heart disease without heart failure Acute cystitis Diabetes COPD (chronic obstructive pulmonary disease) Hyperlipidemia Hypertension Sacral pressure ulcer UTI due to extended-spectrum beta lactamase (ESBL) producing Escherichia coli Right sided weakness Depression Obesity Right flaccid hemiplegia Urinary tract infection due to Proteus Urinary tract infection due to Klebsiella species Diastolic dysfunction PAD (peripheral artery disease) CVA (cerebral vascular accident) CAD (coronary artery disease) Hypotension Pre-op evaluation Nasal fracture Right femoral fracture Dehydration Anxiety and depression Acute bronchitis Ulcer of right foot due to type 2 diabetes mellitus Onychocryptosis Onychomycosis Encounter for wound care Pyelonephritis Sepsis Fall Tibial plateau fracture, right MRSA (methicillin resistant staph aureus) culture positive Foot abscess, right Diabetic foot infection Blister of foot 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) Obesity Syncope Abnormal nuclear stress test Diastolic dysfunction HTN (hypertension) CAD (coronary artery disease) SOB (shortness of breath) Angina pectoris CHF (congestive heart failure) Diabetic ulcer of right heel associated with diabetes mellitus due to underlying condition, limited to breakdown of skin Ulcer of right foot due to type 2 diabetes mellitus Left-sided weakness BKA stump complication Respiratory failure COVID-19 Gangrene of left foot Cellulitis of right foot Encounter for wound care Neuropathy Ulcer of left foot due to type 2 diabetes mellitus Cellulitis of left foot Amputation of one or more toes Infected wound Diabetic Foot Ulcer Abnormal ankle brachial index (NICOLAS) Recent cerebrovascular accident (CVA) History of CVA (cerebrovascular accident) 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 Decreased pedal pulses Edema of left lower extremity Diabetic foot Onychodystrophy Onychomycosis PVD (peripheral vascular disease) Keratosis Contusion of ribs Claudication Left leg swelling Pre-ulcerative calluses Pain due to onychomycosis of toenail Onychogryphosis Microalbuminuric diabetic nephropathy Hypothyroidism Varicose veins of both lower extremities COPD with exacerbation Smoker Low back pain Hypoxia Wheezing Diabetic neuropathy, type II diabetes mellitus Vitamin D deficiency Peripheral arterial occlusive disease Diabetes mellitus Coronary arteriosclerosis Dyspnea Surgical History History of hip surgery History of left below knee amputation S/P BKA (below knee amputation) unilateral Status post foot surgery History of amputation of left great toe Family History Other Breast cancer Diabetes Heart attack Heart disease Hypothyroid Renal disease Stroke Social History (Updated 07/02/24 @ 00:50 by Alicia Wagoner RN) Smoking Status: Current every day smoker tobacco type: cigarettes packs per day: 1 second hand exposure: Yes alcohol intake: never substance use type: denies use current occupational status: disabled Travel in the last 8 weeks: None household members: none housing: longterm current occupational exposures/hazards: No caffeine: No Review of Systems Review of Systems Review of systems (narrative): Negative except for HPI Meds Home Medications and Allergies Home Medications ?Medication ?Instructions ?Recorded ?Confirmed ?Type furosemide 40 mg tablet 40 mg PO DAILY 06/10/23 07/02/24 History insulin glargine 100 unit/mL 10 unit SQ HS 06/10/23 07/02/24 History subcutaneous solution (Lantus U-100 Insulin) lisinopril 10 mg tablet 10 mg PO DAILY 06/11/23 07/02/24 History melatonin 10 mg tablet 10 mg PO HS 06/11/23 07/02/24 History albuterol sulfate 90 mcg/actuation 2 puff inhalation Q4HP PRN 08/05/23 07/02/24 History aerosol inhaler Shortness Of Breath budesonide-formoterol HFA 160 2 puff inhalation Q12H 08/05/23 07/02/24 History mcg-4.5 mcg/actuation aerosol inhaler (Symbicort) ropinirole 0.25 mg tablet 0.25 mg PO HS #90 tabs 09/16/23 07/02/24 Rx acetaminophen 500 mg tablet 1,000 mg PO Q6HP PRN Headache and 11/19/23 07/02/24 History (Tylenol Extra Strength) Pain insulin NPH-regular 70-30 U-100 30 unit SQ AM 11/19/23 07/02/24 History insulin 100 unit/mL subcutaneous pen (Novolin 70-30 FlexPen U-100 Insulin) sennosides 8.6 mg tablet 17.2 mg PO HS 11/19/23 07/02/24 History magnesium oxide 400 mg (241.3 mg 400 mg PO BID deficiency 90 days 01/01/24 07/02/24 Rx magnesium) tablet #180 tabs aspirin 81 mg tablet,delayed 81 mg PO DAILY #1 tab 01/05/24 07/02/24 Rx release (Enteric Coated Aspirin) carvedilol 3.125 mg tablet 3.125 mg PO BIDWMEAL #180 tabs 04/28/24 07/02/24 Rx famotidine 20 mg tablet 20 mg PO DAILY #90 tabs 04/28/24 07/02/24 Rx rivaroxaban 2.5 mg tablet (Xarelto) 2.5 mg PO BID DVT prophylaxis 90 05/10/24 07/02/24 Rx days #180 tabs buspirone 30 mg tablet 30 mg PO BID #60 tabs 05/28/24 07/02/24 Rx clonazepam 0.5 mg tablet 0.5 mg PO TID #90 tabs 06/01/24 07/02/24 Rx gabapentin 800 mg tablet 800 mg PO TID #90 tabs 06/01/24 07/02/24 Rx hydrocodone 7.5 mg-acetaminophen 1 tab PO Q6H PRN pain #120 tabs 06/01/24 07/02/24 Rx 325 mg tablet levothyroxine 150 mcg tablet 150 mcg PO AM #90 tabs 06/01/24 07/02/24 Rx atorvastatin 80 mg tablet 80 mg PO HS #90 tabs 06/04/24 07/02/24 Rx cholecalciferol (vitamin D3) 1,250 1,250 mcg PO WEEKLY 07/02/24 07/02/24 History mcg (50,000 unit) capsule desvenlafaxine succinate 100 mg 100 mg PO DAILY 07/02/24 07/02/24 History tablet,extended release 24 hr lidocaine 5 % topical patch 1 patch topical DAILY 07/02/24 07/02/24 History mirtazapine 15 mg tablet 15 mg PO HS 07/02/24 07/02/24 History quetiapine 25 mg tablet 25 mg PO HS 07/02/24 07/02/24 History semaglutide 1 mg/dose (4 mg/3 mL) 1 mg SQ WEEKLY 07/02/24 07/02/24 History subcutaneous pen injector New Prescriptions to Start Prescriptions: Allergies Allergy/AdvReac Type Severity Reaction Status Date / Time protamine Allergy Verified 05/28/24 10:58 Exam Data for Last 24 hours Vital signs and Labs for Last 24 Hours: Temp Pulse Resp BP Pulse Ox O2 Del Method O2 Flow Rate 97.7 F 75 19 170/69 H 95 Room Air 2 07/01/24 19:39 07/01/24 19:39 07/01/24 19:39 07/01/24 19:39 07/01/24 19:00 07/01/24 19:39 07/01/24 16:19 Laboratory Results - last 24 hr 07/01/24 16:19: WBC 8.8, RBC 4.05 L, Hgb 12.4, Hct 41.6, MCV 102.8 H, MCH 30.7, MCHC 29.8 L, RDW 15.8, Plt Count 403, MPV 8.8, Neut % (Auto) 60.5, Lymph % (Auto) 28.6, [place] % (Auto) 5.5, Eos % (Auto) 4.3, Baso % (Auto) 1.1, Neut # (Auto) 5.3, Lymph # (Auto) 2.5, [place] # (Auto) 0.5, Eos # (Auto) 0.4, Baso # (Auto) 0.1, Sodium 135 L, Potassium 3.7, Chloride 95 L, Carbon Dioxide 37 H, Anion Gap 6.7, BUN 19 H, Creatinine 0.80, Estimated Creat Clear 126, Estimated GFR 74, Est GFR ( Amer) 89, Glucose 178 H, Calcium 9.0, Total Bilirubin 0.6, AST 41 H, ALT 21, Alkaline Phosphatase 114, Troponin I < 0.01, NT-Pro-B Natriuret Pep 44, Total Protein 7.3, Albumin 3.8, Globulin 3.5 H, Albumin/Globulin Ratio 1.1 07/01/24 18:09: SARS-CoV-2 (PCR) Not detected, Influenza A Untype (PCR) Not detected, Influenza Type B (PCR) Not detected 07/01/24 18:24: VBG pH 7.33, VBG pCO2 64.1 H, VBG pO2 34.2, VBG HCO3 32.8 H, VBG Total CO2 34.8 H, VBG O2 Saturation 60.3, VBG Base Excess 6.8 H, VBG Lactic Acid 3.2 H 07/01/24 18:43: Urine Color Yellow, Urine Appearance Clear, Urine pH 6.5, Ur Specific [place] 1.015, Urine Protein Trace, Urine Glucose (UA) Negative, Urine Ketones Negative, Urine Blood 2+, Urine Nitrate Negative, Urine Bilirubin Negative, Urine Urobilinogen 0.2, Ur Leukocyte Esterase 2+ A, Urine RBC 5-10, Urine WBC Tntc, Ur Squamous Epith Cells 10-20, Urine Bacteria 4+ I & O for Last 24 hours: Intake & Output 06/28/24 06/29/24 06/30/24 07/01/24 23:59 23:59 23:59 23:59 Weight 103.873 kg Constitutional Constitutional: no acute distress *Routine HEENT Exam Head: Present normocephalic and atraumatic Eye: Present EOMI and PERRL ENT: Present mucous membranes moist *Routine Neck Exam Neck: Present supple and full ROM *Routine Respiratory Exam Respiratory: Present decreased breath sounds, normal respiratory effort and able to speak in complete sentences *Routine Cardiovascular Exam Cardiovascular: Present RRR, Normal S1 and Normal S2 *Routine Abdominal Exam Abdominal: Present soft and normoactive bowel sounds Comments: Reports mild tenderness over the central abdomen *Routine Rectal Exam Rectal:: deferred *Routine Genitalia Exam Genitalia:: deferred *Routine Skin Exam Skin: Present intact, cyanosis and dry Comments: Decubitus ulcer noted to coccyx Assessment and Plan *Assessment and plan (1) Cystitis: Status: Acute Category: Medical Code(s): N30.90 - Cystitis, unspecified without hematuria (2) Hyperlipidemia: Status: Acute Qualifiers: Hyperlipidemia type: mixed hyperlipidemia Qualified Code(s): E78.2 - Mixed hyperlipidemia Category: Medical Code(s): E78.5 - Hyperlipidemia, unspecified (3) Decubitus ulcer: Status: Acute Qualifiers: Laterality: left Pressure injury location: buttock Pressure injury stage: stage 1 Qualified Code(s): L89.321 - Pressure ulcer of left buttock, stage 1 Category: Medical Code(s): L89.90 - Pressure ulcer of unspecified site, unspecified stage (4) COPD (chronic obstructive pulmonary disease): Status: Chronic Qualifiers: COPD type: unspecified COPD Qualified Code(s): J44.9 - Chronic obstructive pulmonary disease, unspecified Category: Medical Code(s): J44.9 - Chronic obstructive pulmonary disease, unspecified (5) Type 2 diabetes mellitus with diabetic neuropathy, with long-term current use of insulin: Status: Chronic Category: Medical Code(s): E11.40 - Type 2 diabetes mellitus with diabetic neuropathy, unspecified; Z79.4 - terminal supervisor (current) use of insulin (6) Chronic pain: Status: Chronic Qualifiers: Chronic pain type: chronic pain syndrome Qualified Code(s): G89.4 - Chronic pain syndrome Category: Medical Code(s): G89.29 - Other chronic pain (7) Obesity: Status: Chronic Qualifiers: Body mass index: BMI 40.0-44.9 Obesity classification: adult class 3 (BMI >= 40) Obesity type: due to excess calories Serious obesity comorbidity presence: with serious comorbidity Qualified Code(s): E66.01 - Morbid (severe) obesity due to excess calories; Z68.41 - Body mass index [BMI] 40.0-44.9, adult Category: Medical Code(s): E66.9 - Obesity, unspecified (8) HTN (hypertension): Status: Acute Qualifiers: Hypertension type: primary hypertension Qualified Code(s): I10 - Essential (primary) hypertension Category: Medical Code(s): I10 - Essential (primary) hypertension (9) HLD (hyperlipidemia): Status: Acute Qualifiers: Hyperlipidemia type: unspecified Qualified Code(s): E78.5 - Hyperlipidemia, unspecified Category: Medical Code(s): E78.5 - Hyperlipidemia, unspecified Plan #Acute cystitis History of ESBL E. coli, will continue ertapenem for prior sensitivities Follow-up urine culture #Abdominal pain Complains admitted epigastric abdominal pain but states this been going on for a long time . Does endorse new diarrhea. Will obtain diarrhea panel. Low suspicion for C. difficile given patient has not been on any antibiotics re cently It does not improve, consider CT scan. Patient is nontoxic at this time. Non peritonitic abdomen. #T2DM Continue long-acting insulin scale insulin #COPD Does not appear in distress at this time or exacerbation Mild hypercapnia noted on VBG but compensated Continue home bronchodilators #History of CVA Continue home Xarelto #Chronic pain Continue home narcotics #Hypothyroidism Continue home levothyroxine #Anxiety depression Continue home medications #CAD Continue aspirin and statin
[2024-07-01 21:52] LABS: Troponin I < 0.01 ng/ml (0.00-0.034)
[2024-07-01 22:29] LABS: Reflex Lactic Add Lactic Reflex
[2024-07-01] MEDS: humaLOG 100 UNITS/ML 10ML VIAL (SSI) SQ (22:35)
[2024-07-01] MEDS: INSULIN GLARGINE 100 UNITS/ML 3ML FLEXPEN 10 UNIT SQ (22:41)
[2024-07-01 22:43] LABS: POC Glucose,Bedside 437 (70-110)
[2024-07-01] MEDS: 0.9 % SODIUM CHLORIDE 1000ML 1,000 ML 50 ML IV (22:53)
[2024-07-02 00:39] LABS: Troponin I < 0.01 ng/ml (0.00-0.034)
[2024-07-02] MEDS: clonazePAM 0.5MG TABLET 0.5 MG PO ×4 (03:26→22:51)
[2024-07-02] MEDS: GABAPENTIN 800MG TABLET 800 MG PO ×3 (03:26→22:51)
[2024-07-02] MEDS: APAP/HYDROCODONE 325MG/7.5MG TAB 1 TAB PO ×3 (03:27→22:57)
[2024-07-02 04:00] VITALS: BP 124/71; PULSE 94; RESP 17; TEMP 36.8; O2SAT 93; BMI 33.4
[2024-07-02] MEDS: humaLOG 100 UNITS/ML 10ML VIAL (SSI) SQ ×4 (06:11→20:41)
[2024-07-02 06:29] LABS: POC Glucose,Bedside 324 (70-110)
[2024-07-02 06:44] LABS: Basophils % 0.3 % (0.1-2.0); Chloride 96 mmol/L (98-107); Eosinophils % 0.2 % (0.1-12.0); Hematocrit 39.7 % (37.0-47.0); Hemoglobin 12.4 g/dL (12.2-16.2); Lymphocytes # 1.2 K/mm3 (0.7-4.5); Mean Corpuscular HGB Conc 31.1 g/dL (31.8-35.4); Mean Corpuscular Hemoglobin 31.1 pg (27.0-31.2); Mean Platelet Volume 8.8 fl (7.4-10.4); Monocytes # 0.1 K/mm3 (0.1-1.0); Monocytes % 1.9 % (1.7-9.3); Neutrophils % 81.6 % (37.0-80.0); Platelet Count 416 K/mm3 (142-424); Potassium 4.3 mmoL/L (3.5-5.1); Red Blood Count 3.97 M/mm3 (4.20-5.40); Red Cell Distribution Width 15.6 % (11.5-17.5); Sodium 134 mmol/L (136-145); White Blood Count 7.4 K/mm3 (4.8-10.8)
[2024-07-02 06:47] LABS: Blood Urea Nitrogen 22 mg/dl (7-17); Creatinine Clearance Estimated 110 mL/min (50-200); Estimated Glomerular Filt Rate 64 ml/min (>60); GFR (African American) 78 ML/MIN (>60)
[2024-07-02 06:48] LABS: Anion Gap 11.3 mEq/L (5-15); Calcium 8.6 mg/dl (8.4-10.2); Carbon Dioxide 31 mmol/L (22.0-30.0); Glucose 335 mg/dl (74-100)
[2024-07-02 08:00] VITALS: BP 135/68; PULSE 109; RESP 17; TEMP 36.6; O2SAT 92
[2024-07-02] MEDS: LEVOTHYROXINE 150MCG (0.15MG)TAB 150 MCG PO (08:08)
[2024-07-02] MEDS: DOCUSATE SODIUM 100 MG CAPSULE PO (08:08)
[2024-07-02] MEDS: BUSPIRONE HCL 10 MG TABLET 30 MG PO ×2 (08:08→22:51)
[2024-07-02] MEDS: FUROSEMIDE 40 MG TABLET PO (08:09)
[2024-07-02] MEDS: FAMOTIDINE 20MG TABLET 20 MG PO (08:09)
[2024-07-02] MEDS: ASPIRIN EC 81MG TABLET 81 MG PO (08:09)
[2024-07-02] MEDS: DULOXETINE 30MG CAPSULE.DR 60 MG PO (08:09)
[2024-07-02] MEDS: RIVAROXABAN 2.5MG TABLET 2.5 MG PO ×2 (08:10→16:31)
[2024-07-02] MEDS: CARVEDILOL 3.125MG TABLET 3.125 MG PO ×2 (08:13→16:31)
--- NOTE | 2024-07-02 08:44 | HMH.PHAINT1 ---
Pharmacy Intervention Comments: HOME MEDICATION LIST VERIFIED USING LIST FROM OUTPATIENT PHARMACY AND PCP OFFICE LIST
[2024-07-02] MEDS: MAGNESIUM OXIDE 400MG TABLET 400 MG PO ×2 (09:21→22:52)
--- NOTE | 2024-07-02 10:11 | CT_ITS ---
FINAL REPORT TECHNIQUE: The patient was injected with IV contrast. Axial images were obtained through the chest in a PE protocol. 3-D reconstruction images were also performed. Individualized dose reduction techniques using automated exposure control or adjustment of the MA and/or KV according to patient's size were employed. CLINICAL HISTORY: SOB hypoxia r/o PE COMPARISON: None FINDINGS: Mediastinal vasculature is adequately opacified. No pulmonary artery filling defects are identified to suggest PE. There is no aortic dissection. There is no axillary adenopathy. There is no hilar or mediastinal adenopathy. The heart size is normal. Moderate coronary artery calcifications are present. There is no pericardial or pleural effusion. Limited images of the upper abdomen are unremarkable. No suspicious infiltrate or nodule is identified. There is linear scarring versus atelectasis present in the lung bases. IMPRESSION: No pulmonary embolus or dissection. Moderate coronary artery calcifications. Linear scarring versus atelectasis lung bases. Reviewed, Interpreted and Dictated by Ulises Trujillo MD Transcribed by Kath Salgado Authenticated and [facility]
[2024-07-02] MEDS: IOPAMIDOL-370 (76%);100ML BOTTLE 80 ML IV (10:57)
[2024-07-02] MEDS: 0.9 % SODIUM CHLORIDE 50 ML VIAL IV (10:57)
[2024-07-02] MEDS: SODIUM CHLORIDE 0.9% 10ML SYR (RAD ONLY) 10 ML IV (10:58)
[2024-07-02 12:26] LABS: Adenovirus,PCR Not Detected (NotDetected); Bordetella Pertussis Not Detected (NotDetected); Chlamydophila Pneumoniae, PCR Not Detected (NotDetected); Coronavirus 19, PCR Not Detected (NotDetected); Coronavirus 229E Not Detected (NotDetected); Coronavirus NL63 Not Detected (NotDetected); Coronavirus OC43 Not Detected (NotDetected); Coronovirus HKU1,PCR Not Detected (NotDetected); Human Metapneumovirus Not Detected (NotDetected); Influenza A, PCR Not Detected (NotDetected); Influenza AH1, 2009 Not Detected (NotDetected); Influenza AH1, PCR Not Detected (NotDetected); Influenza AH3,PCR Not Detected (NotDetected); Influenza B, PCR Not Detected (NotDetected); Mycoplasma Pneumoniae, PCR Not Detected (NotDetected); Parainfluenza 1, PCR Not Detected (NotDetected); Parainfluenza 2, PCR Not Detected (NotDetected); Parainfluenza 3, PCR Not Detected (NotDetected); Parainfluenza 4, PCR Not Detected (NotDetected); Respiratory Syncytial Virus Not Detected (NotDetected); Rhinovirus/Enterovirus Not Detected (NotDetected)
[2024-07-02 12:28] LABS: POC Glucose,Bedside 321 (70-110)
--- NOTE | 2024-07-02 15:15 | PC.NURSE ---
AOX4, PT STILL REQUIRES 2LNC FOR O2 SUPPORT. PUREWICK IN PLACE FOR ELIMINATION. PT NON-AMBULATORY R/T FLACCIDITY OF RIGHT SIDE AND LEFT BKA. FSBS REMAIN ELEVATED. FULL RESPIRATORY PANEL COLLECTED AND SENT TO LAB; RESULTS PENDING.
--- NOTE | 2024-07-02 15:26 | P.PN_ITS ---
Subjective *Date: 07/02/24 *Time: 15:32 Interval history: Patient displaying no signs of respiratory distress this a.m. States her breathing was extremely uncomfortable prior to admission last night. Complaining of chronic abdominal discomfort. Medical Exam Vital signs and Labs for Last 24 Hours: Vital Signs Temp Pulse Pulse Resp BP BP Pulse Ox 07/02/24 13:00 07/02/24 11:00 07/02/24 09:00 07/02/24 08:00 07/02/24 08:00 97.9 F 109 H 17 135/68 92 L 07/02/24 06:51 07/02/24 05:00 07/02/24 04:00 98.2 F 94 H 17 124/71 93 L 07/02/24 03:00 07/02/24 01:00 07/01/24 23:00 07/01/24 21:00 07/01/24 20:00 95 07/01/24 20:00 83 18 148/66 H 97 07/01/24 19:39 97.7 F 75 19 170/69 H 07/01/24 19:00 79 164/87 H 95 07/01/24 18:41 75 07/01/24 18:41 77 07/01/24 18:30 76 164/95 H 94 L 07/01/24 18:00 80 177/76 H 96 07/01/24 17:30 79 176/79 H 96 07/01/24 17:00 76 152/84 H 97 07/01/24 16:30 78 175/90 H 92 L 07/01/24 16:19 98.2 F 78 18 150/82 H 95 07/01/24 16:15 66 150/82 H 95 O2 Del Method O2 Flow Rate 07/02/24 13:00 Nasal Cannula 2 07/02/24 11:00 Nasal Cannula 2 07/02/24 09:00 Nasal Cannula 2 07/02/24 08:00 Nasal Cannula 2 07/02/24 08:00 Nasal Cannula 07/02/24 06:51 Nasal Cannula 2 07/02/24 05:00 Nasal Cannula 2 07/02/24 04:00 07/02/24 03:00 Nasal Cannula 2 07/02/24 01:00 Nasal Cannula 2 07/01/24 23:00 Room Air 07/01/24 21:00 Nasal Cannula 2 07/01/24 20:00 Nasal Cannula 2 07/01/24 20:00 Nasal Cannula 2 07/01/24 19:39 Room Air 07/01/24 19:00 07/01/24 18:41 07/01/24 18:41 07/01/24 18:30 07/01/24 18:00 Room Air 07/01/24 17:30 Room Air 07/01/24 17:00 Room Air 07/01/24 16:30 Room Air 07/01/24 16:19 Nasal Cannula 2 07/01/24 16:15 Room Air Intake and Output 07/01/24 07/02/24 07/02/24 23:59 07:59 15:59 Intake Total 300 / 1020 720 / 1020 Output Total 400 / 1000 600 / 1000 Balance -100 20 120 / 20 Intake: Intake, Oral Amount 250 / 970 720 / 970 Intake, Total IV Amount 50 / 50 0.9 % Sodium Chloride 1000ML 1, 50 / 50 000 ml @ 50 mls/hr IV .Q20H [facility] Rx#:[id number] Output: Output, Urine Amount 400 / 1000 600 / 1000 Other: Weight 103.873 kg 102.285 kg Patient Weight 07/02/24 23:59 Weight 102.285 kg Laboratory Results - last 24 hr 07/01/24 00:00: Troponin I < 0.01 07/01/24 16:19: WBC 8.8, RBC 4.05 L, Hgb 12.4, Hct 41.6, MCV 102.8 H, MCH 30.7, MCHC 29.8 L, RDW 15.8, Plt Count 403, MPV 8.8, Neut % (Auto) 60.5, Lymph % (Auto) 28.6, [place] % (Auto) 5.5, Eos % (Auto) 4.3, Baso % (Auto) 1.1, Neut # (Auto) 5.3, Lymph # (Auto) 2.5, [place] # (Auto) 0.5, Eos # (Auto) 0.4, Baso # (Auto) 0.1, Sodium 135 L, Potassium 3.7, Chloride 95 L, Carbon Dioxide 37 H, Anion Gap 6.7, BUN 19 H, Creatinine 0.80, Estimated Creat Clear 126, Estimated GFR 74, Est GFR ( Amer) 89, Glucose 178 H, Calcium 9.0, Total Bilirubin 0.6, AST 41 H, ALT 21, Alkaline Phosphatase 114, Troponin I < 0.01, NT-Pro-B Natriuret Pep 44, Total Protein 7.3, Albumin 3.8, Globulin 3.5 H, Albumin/Globulin Ratio 1.1 07/01/24 18:09: SARS-CoV-2 (PCR) Not detected, Influenza A Untype (PCR) Not detected, Influenza Type B (PCR) Not detected 07/01/24 18:24: VBG pH 7.33, VBG pCO2 64.1 H, VBG pO2 34.2, VBG HCO3 32.8 H, VBG Total CO2 34.8 H, VBG O2 Saturation 60.3, VBG Base Excess 6.8 H, VBG Lactic Acid 3.2 H 07/01/24 18:43: Urine Color Yellow, Urine Appearance Clear, Urine pH 6.5, Ur Specific [place] 1.015, Urine Protein Trace, Urine Glucose (UA) Negative, Urine Ketones Negative, Urine Blood 2+, Urine Nitrate Negative, Urine Bilirubin Negative, Urine Urobilinogen 0.2, Ur Leukocyte Esterase 2+ A, Urine RBC 5-10, Urine WBC Tntc, Ur Squamous Epith Cells 10-20, Urine Bacteria 4+ 07/01/24 21:07: Troponin I < 0.01 07/01/24 22:34: POC Glucose 437 H* 07/01/24 22:40: Lactate 2.0 07/02/24 06:04: WBC 7.4, RBC 3.97 L, Hgb 12.4, Hct 39.7, MCV 100.0 H, MCH 31.1, MCHC 31.1 L, RDW 15.6, Plt Count 416, MPV 8.8, Neut % (Auto) 81.6 H, Lymph % (Auto) 16.0, [place] % (Auto) 1.9, Eos % (Auto) 0.2, Baso % (Auto) 0.3, Neut # (Auto) 6.0, Lymph # (Auto) 1.2, [place] # (Auto) 0.1, Eos # (Auto) 0.0, Baso # (Auto) 0.0, Sodium 134 L, Potassium 4.3, Chloride 96 L, Carbon Dioxide 31 H, Anion Gap 11.3, BUN 22 H, Creatinine 0.90, Estimated Creat Clear 110, Estimated GFR 64, Est GFR ( Amer) 78, Glucose 335 H D, Calcium 8.6 07/02/24 06:11: POC Glucose 324 H* 07/02/24 12:15: POC Glucose 321 H* I & O for Labs for Last 24 Hours: Intake & Output 06/29/24 06/30/24 07/01/24 07/02/24 23:59 23:59 23:59 23:59 Intake Total 1020 / 1020 Output Total 1000 / 1000 Balance Weight 103.873 kg 102.285 kg Head: Present normocephalic ENT: Present normal exam and normal oropharynx Neck: Present normal inspection and full ROM Respiratory: Present prolonged expiratory phase and diminished air movement Cardiac: Present Reg Rate and Rhythm and Regular Rate GI: Present soft and normal bowel sounds (female): Present deferred Extremities: Present normal inspection Assessment and Plan *Assessment and plan (1) Cystitis: Status: Acute Category: Medical Code(s): N30.90 - Cystitis, unspecified without hematuria (2) History of ESBL E. coli infection: Status: Acute Category: Medical Code(s): Z86.19 - Personal history of other infectious and parasitic diseases (3) COPD (chronic obstructive pulmonary disease): Status: Chronic Qualifiers: COPD type: unspecified COPD Qualified Code(s): J44.9 - Chronic obstructive pulmonary disease, unspecified Category: Medical Code(s): J44.9 - Chronic obstructive pulmonary disease, unspecified (4) Type 2 diabetes mellitus with diabetic neuropathy, with long-term current use of insulin: Status: Chronic Category: Medical Code(s): E11.40 - Type 2 diabetes mellitus with diabetic neuropathy, unspecified; Z79.4 - residential (current) use of insulin (5) Functional paraparesis: Status: Acute Category: Medical Code(s): F44.4 - Conversion disorder with motor symptom or deficit (6) HTN (hypertension): Status: Acute Qualifiers: Hypertension type: primary hypertension Qualified Code(s): I10 - Essential (primary) hypertension Category: Medical Code(s): I10 - Essential (primary) hypertension (7) HLD (hyperlipidemia): Status: Acute Qualifiers: Hyperlipidemia type: unspecified Qualified Code(s): E78.5 - Hyperlip idemia, unspecified Category: Medical Code(s): E78.5 - Hyperlipidemia, unspecified Plan # Acute on chronic respiratory distress with hypoxia and COPD patient: ?07/02 no use of accessory muscles of respiration during evaluation. Given hypoxia noted prior to admission, will order respiratory PCR viral/bacterial panel. Will also perform CTA chest looking for signs of PE and/or pneumonia. - Continue home bronchodilators. Currently extremely comfortable on supplemental oxygen. #Acute cystitis and paraplegic patient ?History of ESBL E. coli; probably secondary to urinary retention from paraplegia. will continue ertapenem for prior sensitivities Follow-up urine culture #Abdominal pain ? Complains admitted epigastric abdominal pain but states this been going on for a long time . Does endorse new diarrhea. Will obtain diarrhea panel. Low suspicion for C. difficile given patient has not been on any antibiotics recently. ? It does not improve, consider CT scan. Patient is nontoxic at this time. Non peritonitic abdomen. #T2DM ?07/02 increase insulin administration as needed given hyperglycemia with IV glucocorticoid administration. ?Continue long-acting insulin scale insulin #History of CVA with resultant paraplegia Continue home Xarelto #Chronic pain Continue home narcotics #Hypothyroidism Continue home levothyroxine #Anxiety depression Continue home medications #CAD Continue aspirin and statin Disposition: Hopefully if patient continues to improve, patient will be appropriate for hospital disposition within next 72hrs.
[2024-07-02 15:59] VITALS: BP 131/67; PULSE 79; RESP 18; TEMP 36.7; O2SAT 92
[2024-07-02] MEDS: INSULIN GLARGINE 100 UNITS/ML 3ML FLEXPEN 10 UNIT SQ (16:34)
[2024-07-02 16:43] LABS: POC Glucose,Bedside 259 (70-110)
[2024-07-02] MEDS: IPRATROPIUM/ALBUTEROL 3 ML NEB IH ×2 (18:32→23:37)
[2024-07-02] MEDS: FLUTICASONE/SALMETEROL 250/50MCG DISKUS 1 PUFF IH (18:32)
[2024-07-02 18:37] VITALS: PULSE 82; PULSE 85; O2SAT 92
[2024-07-02 20:00] VITALS: BP 116/66; PULSE 78; RESP 16; TEMP 37.7; O2SAT 92
[2024-07-02] MEDS: METHYLPREDNISOLONE SOD SUCC 40MG VIAL 40 MG IV (20:38)
[2024-07-02] MEDS: ERTAPENEM SODIUM 1 GM in 0.9 % SODIUM CHLORIDE 50 ML IV (20:39)
[2024-07-02] MEDS: INSULIN GLARGINE 100 UNITS/ML 3ML FLEXPEN 12 UNIT SQ (20:44)
[2024-07-02] MEDS: ATORVASTATIN 40MG TABLET 80 MG PO (22:50)
[2024-07-02] MEDS: MELATONIN 5MG TABLET 10 MG PO (22:52)
[2024-07-02] MEDS: MIRTAZAPINE 15 MG TABLET PO (22:53)
[2024-07-02] MEDS: QUETIAPINE 25MG TABLET 25 MG PO (22:54)
[2024-07-02] MEDS: ROPINIROLE HCL 0.25 MG TABLET PO (22:54)
[2024-07-02] MEDS: 0.9 % SODIUM CHLORIDE 1000ML 1,000 ML 50 ML IV (23:01)
[2024-07-02 23:45] VITALS: PULSE 77; PULSE 78
[2024-07-03] VITALS (10 sets, daily range): BP systolic 115–129; BP diastolic 58–67; PULSE 65–77; RESP 16–18; TEMP 36.4–36.9; O2SAT 90–96; BMI 35.4
[2024-07-03 02:17] LABS: POC Glucose,Bedside 328 (70-110)
--- NOTE | 2024-07-03 05:36 | PC.NURSE ---
pt cont to be hyperglycemic. fsbs 328. pt covered with ssi and and scheduled lantus. low grade fever of 99.9. not treated, temperature decreased without medication, adequate uop, pain treated per jan.
[2024-07-03] MEDS: humaLOG 100 UNITS/ML 10ML VIAL (SSI) SQ ×4 (06:18→20:53)
[2024-07-03] MEDS: LEVOTHYROXINE 150MCG (0.15MG)TAB 150 MCG PO (06:18)
[2024-07-03] MEDS: METHYLPREDNISOLONE SOD SUCC 40MG VIAL 40 MG IV ×2 (08:14→20:51)
[2024-07-03] MEDS: CARVEDILOL 3.125MG TABLET 3.125 MG PO ×2 (08:15→17:49)
[2024-07-03] MEDS: RIVAROXABAN 2.5MG TABLET 2.5 MG PO ×2 (08:16→17:49)
[2024-07-03] MEDS: FAMOTIDINE 20MG TABLET 20 MG PO (09:24)
[2024-07-03] MEDS: GABAPENTIN 800MG TABLET 800 MG PO ×3 (09:24→20:53)
[2024-07-03] MEDS: DOCUSATE SODIUM 100 MG CAPSULE PO (09:24)
[2024-07-03] MEDS: clonazePAM 0.5MG TABLET 0.5 MG PO ×3 (09:24→20:53)
[2024-07-03] MEDS: ASPIRIN EC 81MG TABLET 81 MG PO (09:24)
[2024-07-03] MEDS: MAGNESIUM OXIDE 400MG TABLET 400 MG PO ×2 (09:24→20:53)
[2024-07-03] MEDS: BUSPIRONE HCL 10 MG TABLET 30 MG PO ×2 (09:24→20:53)
[2024-07-03] MEDS: LISINOPRIL 10MG TABLET 10 MG PO (09:25)
[2024-07-03] MEDS: FUROSEMIDE 40 MG TABLET PO (09:25)
[2024-07-03] MEDS: LIDOCAINE 5% TRANSDERMAL PATCH 1 EACH TP (09:25)
[2024-07-03 09:27] LABS: Chloride 94 mmol/L (98-107); Potassium 4.7 mmoL/L (3.5-5.1); Sodium 135 mmol/L (136-145)
[2024-07-03 09:30] LABS: Anion Gap 11.7 mEq/L (5-15); Blood Urea Nitrogen 28 mg/dl (7-17); Calcium 8.8 mg/dl (8.4-10.2); Carbon Dioxide 34 mmol/L (22.0-30.0); Creatinine Clearance Estimated 117 mL/min (50-200); Estimated Glomerular Filt Rate 64 ml/min (>60); GFR (African American) 78 ML/MIN (>60); Glucose 332 mg/dl (74-100)
[2024-07-03 09:31] LABS: Basophils # 0.2 K/mm3 (0-0.2); Basophils % 2.1 % (0.1-2.0); Eosinophils % 0.4 % (0.1-12.0); Hematocrit 39.4 % (37.0-47.0); Hemoglobin 11.8 g/dL (12.2-16.2); Lymphocytes # 1.7 K/mm3 (0.7-4.5); Lymphocytes % 17.5 % (10-50); Mean Corpuscular Hemoglobin 30.7 pg (27.0-31.2); Mean Corpuscular Volume 102.3 fl (81-99); Mean Platelet Volume 8.8 fl (7.4-10.4); Monocytes # 0.6 K/mm3 (0.1-1.0); Monocytes % 6.5 % (1.7-9.3); Neutrophils # 7.1 K/mm3 (1.8-7.8); Neutrophils % 73.5 % (37.0-80.0); Platelet Count 394 K/mm3 (142-424); Red Blood Count 3.85 M/mm3 (4.20-5.40); Red Cell Distribution Width 15.9 % (11.5-17.5); White Blood Count 9.6 K/mm3 (4.8-10.8)
[2024-07-03] MEDS: INSULIN GLARGINE 100 UNITS/ML 3ML FLEXPEN 12 UNIT SQ ×2 (09:32→20:54)
[2024-07-03 09:48] LABS: POC Glucose,Bedside 463 (70-110)
[2024-07-03 10:57] LABS: POC Glucose,Bedside 413 (70-110)
[2024-07-03] MEDS: APAP/HYDROCODONE 325MG/7.5MG TAB 1 TAB PO (11:01)
[2024-07-03] MEDS: IPRATROPIUM/ALBUTEROL 3 ML NEB IH ×3 (11:06→23:12)
[2024-07-03] MEDS: FLUTICASONE/SALMETEROL 250/50MCG DISKUS 1 PUFF IH (11:06)
[2024-07-03] MEDS: 0.9 % SODIUM CHLORIDE 1000ML 1,000 ML 50 ML IV (12:51)
--- NOTE | 2024-07-03 15:12 | EXP.PN ---
Subjective *Date: 07/03/24 *Time: 15:12 Interval history: seen at bedside, complains of wheezing, no acute events overnight, denied CP Exam Data for Last 24 hours Vital signs and Labs for Last 24 Hours: Temp Pulse Resp BP Pulse Ox O2 Del Method O2 Flow Rate 97.8 F 71 18 115/58 L 91 L Nasal Cannula 1 07/03/24 08:00 07/03/24 11:07 07/03/24 08:00 07/03/24 08:00 07/03/24 11:07 07/03/24 13:00 07/03/24 11:07 Laboratory Results - last 24 hr 07/02/24 12:20: Chlamy pneumoniae PCR Not detected, Adenovirus (PCR) Not detected, B. pertussis DNA (PCR) Not detected, Coronavirus OC43 (PCR) Not detected, Coronavirus HKU1 (PCR) Not detected, Coronavirus 229E (PCR) Not detected, SARS-CoV-2 (PCR) Not detected, Coronavirus NL63 (PCR) Not detected, Human Metapneumovir PCR Not detected, Influenza A (H1) PCR Not detected, Influ A (H1N1/09) PCR Not detected, Influenza A (H3) PCR Not detected, Influenza Type A (PCR) Not detected, Influenza Type B (PCR) Not detected, M. pneumoniae (PCR) Not detected, Parainfluenza 1 (PCR) Not detected, Parainfluenza 2 (PCR) Not detected, Parainfluenza 3 (PCR) Not detected, Parainfluenza 4 (PCR) Not detected, RSV (PCR) Not detected, Entero/Rhino (PCR) Not detected 07/02/24 16:30: POC Glucose 259 H 07/02/24 20:18: POC Glucose 328 H* 07/03/24 09:05: WBC 9.6 D, RBC 3.85 L, Hgb 11.8 L, Hct 39.4, MCV 102.3 H, MCH 30.7, MCHC 30.0 L, RDW 15.9, Plt Count 394, MPV 8.8, Neut % (Auto) 73.5, Lymph % (Auto) 17.5, [place] % (Auto) 6.5, Eos % (Auto) 0.4, Baso % (Auto) 2.1 H, Neut # (Auto) 7.1, Lymph # (Auto) 1.7, Free[place] # (Auto) 0.6, Eos # (Auto) 0.0, Baso # (Auto) 0.2, Sodium 135 L, Potassium 4.7, Chloride 94 L, Carbon Dioxide 34 H, Anion Gap 11.7, BUN 28 H D, Creatinine 0.90, Estimated Creat Clear 117, Estimated GFR 64, Est GFR ( Amer) 78, Glucose 332 H, Calcium 8.8 07/03/24 09:32: POC Glucose 463 H* 07/03/24 10:36: POC Glucose 413 H* I & O for Last 24 hours: Intake & Output 06/30/24 07/01/24 07/02/24 07/03/24 23:59 23:59 23:59 23:59 Intake Total 1380 / 1600 1075 / 1075 Output Total 1000 / 1000 300 / 300 Balance 380 / 600 775 / 775 Weight 103.873 kg 102.285 kg 108.454 kg Microbiology Reports for the Last 24 Hours: Microbiology 07/01/24 18:43 Urine,Clean Catch Urine Culture - Preliminary 07/01/24 19:28 Blood Blood Culture - Preliminary NO GROWTH AFTER 24 HOURS 07/01/24 19:28 Blood Blood Culture - Final Constitutional Constitutional: no acute distress *Routine HEENT Exam Head: Present normocephalic Eye: Present EOMI and PERRL ENT: Present mucous membranes moist *Routine Neck Exam Neck: Present supple; Absent lymphadenopathy *Routine Respiratory Exam Respiratory: Present wheezes *Routine Cardiovascular Exam Cardiovascular: Present RRR *Routine Abdominal Exam Abdominal: Present soft and normoactive bowel sounds; Absent tenderness *Routine Extremities Exam Extremities: Absent cyanosis, clubbing or edema *Routine Skin Exam Skin: Present warm; Absent rash *Routine Neurological Exam Neurological: Present alert and oriented X3 Assessment and Plan *Assessment and plan (1) Cystitis: Status: Acute Category: Medical Code(s): N30.90 - Cystitis, unspecified without hematuria (2) History of ESBL E. coli infection: Status: Acute Category: Medical Code(s): Z86.19 - Personal history of other infectious and parasitic diseases (3) COPD (chronic obstructive pulmonary disease): Status: Chronic Qualifiers: COPD type: unspecified COPD Qualified Code(s): J44.9 - Chronic obstructive pulmonary disease, unspecified Category: Medical Code(s): J44.9 - Chronic obstructive pulmonary disease, unspecified (4) Type 2 diabetes mellitus with diabetic neuropathy, with long-term current use of insulin: Status: Chronic Category: Medical Code(s): E11.40 - Type 2 diabetes mellitus with diabetic neuropathy, unspecified; Z79.4 - termite treater helper (current) use of insulin (5) Functional paraparesis: Status: Acute Category: Medical Code(s): F44.4 - Conversion disorder with motor symptom or deficit (6) HTN (hypertension): Status: Acute Qualifiers: Hypertension type: primary hypertension Qualified Code(s): I10 - Essential (primary) hypertension Category: Medical Code(s): I10 - Essential (primary) hypertension (7) HLD (hyperlipidemia): Status: Acute Qualifiers: Hyperlipidemia type: unspecified Qualified Code(s): E78.5 - Hyperlipidemia, unspecified Category: Medical Code(s): E78.5 - Hyperlipidemia, unspecified Plan # Acute on chronic respiratory distress with hypoxia and COPD patient: ?07/02 no use of accessory muscles of respiration during evaluation. Given hypoxia noted prior to admission, will order respiratory PCR viral/bacterial panel. Will also perform CTA chest looking for signs of PE and/or pneumonia. - No pulmonary embolus or dissection. Moderate coronary artery calcifications. Linear scarring versus atelectasis lung bases. - Continue albuterol inhalations #Acute cystitis and paraplegic patient ?History of ESBL E. coli; probably secondary to urinary retention from paraplegia. will continue ertapenem for prior sensitivities Follow-up urine culture - pending #Abdominal pain - no complains of abdominal pain today #T2DM ?07/02 increase insulin administration as needed given hyperglycemia with IV glucocorticoid administration. ?Continue long-acting insulin scale insulin #History of CVA with resultant paraplegia Continue home Xarelto #Chronic pain Continue home narcotics #Hypothyroidism Continue home levothyroxine #Anxiety depression Continue home medications #CAD Continue aspirin and statin Disposition: still has wheezing, likely dc tomorrow
[2024-07-03 16:24] LABS: POC Glucose,Bedside 400 (70-110)
--- NOTE | 2024-07-03 17:35 | PC.NURSE ---
pt has rested on and off this shift. glucose level at 1100 was 413 and at 1630 was 400, treated per sliding scale. pain in the right leg reported this AM and treated per JAN. currently on 2 LNC at 96% tolerating well. no further requests at this time, call light within reach.
[2024-07-03] MEDS: ERTAPENEM SODIUM 1 GM in 0.9 % SODIUM CHLORIDE 50 ML IV (20:51)
[2024-07-03] MEDS: ATORVASTATIN 40MG TABLET 80 MG PO (20:53)
[2024-07-03] MEDS: QUETIAPINE 25MG TABLET 25 MG PO (20:53)
[2024-07-03] MEDS: MELATONIN 5MG TABLET 10 MG PO (20:53)
[2024-07-03] MEDS: ROPINIROLE HCL 0.25 MG TABLET PO (20:53)
[2024-07-03] MEDS: MIRTAZAPINE 15 MG TABLET PO (20:53)
[2024-07-03] MEDS: SENNA 8.6MG TABLET 17.2 MG PO (20:53)
[2024-07-03] MEDS: INSULIN GLARGINE 100 UNITS/ML 10ML VIAL 10 UNIT SQ (21:00)
[2024-07-03 21:02] LABS: POC Glucose,Bedside 423 (70-110)
--- NOTE | 2024-07-03 21:26 | PC.NURSE ---
changed dressing to right du - cleaned with iodine and wrapped.
[2024-07-04 04:00] VITALS: BP 130/62; PULSE 63; RESP 16; TEMP 36.5; O2SAT 94; BMI 35.4
[2024-07-04] MEDS: humaLOG 100 UNITS/ML 10ML VIAL (SSI) SQ ×2 (05:37→10:46)
[2024-07-04] MEDS: FLUTICASONE/SALMETEROL 250/50MCG DISKUS 1 PUFF IH (05:42)
[2024-07-04] MEDS: IPRATROPIUM/ALBUTEROL 3 ML NEB IH ×2 (05:42→12:59)
[2024-07-04 05:43] VITALS: PULSE 61
[2024-07-04 05:45] LABS: POC Glucose,Bedside 348 (70-110)
[2024-07-04] MEDS: 0.9 % SODIUM CHLORIDE 1000ML 1,000 ML 50 ML IV ×2 (05:56→08:12)
[2024-07-04 08:00] VITALS: BP 107/60; PULSE 75; RESP 18; TEMP 36.4; O2SAT 92
[2024-07-04] MEDS: LEVOTHYROXINE 150MCG (0.15MG)TAB 150 MCG PO (08:08)
[2024-07-04] MEDS: FUROSEMIDE 40 MG TABLET PO (08:08)
[2024-07-04] MEDS: ASPIRIN EC 81MG TABLET 81 MG PO (08:08)
[2024-07-04] MEDS: FAMOTIDINE 20MG TABLET 20 MG PO (08:08)
[2024-07-04] MEDS: DOCUSATE SODIUM 100 MG CAPSULE PO (08:08)
[2024-07-04] MEDS: MAGNESIUM OXIDE 400MG TABLET 400 MG PO (08:08)
[2024-07-04] MEDS: CARVEDILOL 3.125MG TABLET 3.125 MG PO (08:08)
[2024-07-04] MEDS: GABAPENTIN 800MG TABLET 800 MG PO ×2 (08:08→12:21)
[2024-07-04] MEDS: LISINOPRIL 10MG TABLET 10 MG PO (08:09)
[2024-07-04] MEDS: BUSPIRONE HCL 10 MG TABLET 30 MG PO (08:09)
[2024-07-04] MEDS: RIVAROXABAN 2.5MG TABLET 2.5 MG PO (08:09)
[2024-07-04] MEDS: INSULIN GLARGINE 100 UNITS/ML 3ML FLEXPEN 12 UNIT SQ (08:09)
[2024-07-04] MEDS: METHYLPREDNISOLONE SOD SUCC 40MG VIAL 40 MG IV (08:09)
[2024-07-04] MEDS: LIDOCAINE 5% TRANSDERMAL PATCH 1 EACH TP (08:10)
[2024-07-04] MEDS: clonazePAM 0.5MG TABLET 0.5 MG PO ×2 (08:12→12:21)
[2024-07-04 10:51] LABS: POC Glucose,Bedside 382 (70-110)
--- NOTE | 2024-07-04 12:03 | P.DS_ITS ---
General Admission date:: 07/01/24 Discharge date: 07/04/24 HPI HPI HPI: This is a 58-year-old female with past medical history of ESBL E. coli urine, HTN, HLD, CVA with resulting paralysis, chronic pain, obesity lower abdominal pain and shortness of breath. She reports worsening cough and shortness of breath the last few days. Home health nurse stated her oxygen saturations were low on her baseline 2 L nasal cannula so they sent her to her here for that evaluation but also patient reports of foul-smelling urine and dysuria. She also endorses 2 days of diarrhea, no vomiting. She denies fever, does endorse cough and shortness of breath. She is down at baseline secondary to paralysis. Does endorse healing decubitus ulcer as well. She recently was leaving the living facility but was discharged home recently or her sister is her primary local company truck driver as well as home health. Emergency department workup notable for acute cystitis noted on urinalysis with positive leuk esterase, too numerous to count white blood cells and +4 bacteria. Chest x-ray without overload or acute abnormality. COVID flu negative. ABG with mildly elevated CO2. but pH WNL. Given her acute cystitis noted on evaluation, and history of ESBL, ertapenem was started and she was admitted to the hospital service Hospital Course Hospital Course Hospital Course: # Acute on chronic respiratory distress with hypoxia and COPD patient: improved, now back to baseline o2 needs, patient will be discharged in stable condition and will be discharged on oral prednisone patient agreed with the discharge plan and will follow up with PCP as outpatient #Acute cystitis and paraplegic patient - completed course of 3 days IV abx with invanz On the date of discharge, the patient reported feeling stable. The patient was found not to be in any acute distress, and no new abnormalities on physical examination. Further, the patient expressed appropriate understanding of, and agreement with, the discharge recommendations, medications, and plan. Time spent 37 mins Exam Data for Last 24 hours Vital signs and Labs for Last 24 Hours: Temp Pulse Resp BP Pulse Ox O2 Del Method O2 Flow Rate 97.5 F L 75 18 107/60 L 92 L Nasal Cannula 2 07/04/24 08:00 07/04/24 08:00 07/04/24 08:00 07/04/24 08:00 07/04/24 08:00 07/04/24 10:59 07/04/24 10:59 Laboratory Results - last 24 hr 07/03/24 15:37: POC Glucose 400 H* 07/03/24 20:41: POC Glucose 423 H* 07/04/24 05:38: POC Glucose 348 H* 07/04/24 10:43: POC Glucose 382 H* I & O for Last 24 hours: Intake & Output 07/01/24 07/02/24 07/03/24 07/04/24 23:59 23:59 23:59 23:59 Intake Total 1380 / 1600 1605 / 1605 617 / 617 Output Total 1000 / 1000 1500 / 1500 1650 / 1650 Balance 380 / 600 105 / 105 -1033 / -1033 Weight 103.873 kg 102.285 kg 108.454 kg 108.454 kg Microbiology Reports for the Last 24 Hours: Microbiology 07/01/24 18:43 Urine,Clean Catch Urine Culture - Final 07/01/24 19:28 Blood Blood Culture - Preliminary NO GROWTH AFTER 48 HOURS Constitutional Constitutional: no acute distress *Routine HEENT Exam Head: Present normocephalic Eye: Present EOMI and PERRL ENT: Present mucous membranes moist *Routine Neck Exam Neck: Present supple; Absent lymphadenopathy *Routine Respiratory Exam Respiratory: Present CTA bilaterally *Routine Cardiovascular Exam Cardiovascular: Present RRR *Routine Abdominal Exam Abdominal: Present soft and normoactive bowel sounds; Absent tenderness *Routine Extremities Exam Extremities: Absent cyanosis, clubbing or edema *Routine Skin Exam Skin: Present warm; Absent rash *Routine Neurological Exam Neurological: Present alert and oriented X3 Results Data Completed and Pending Labs on day of discharge: Labs from last 24 hours 07/04/24 07/04/24 07/03/24 10:43 05:38 20:41 POC Glucose 382 H* 348 H* 423 H* 07/03/24 15:37 POC Glucose 400 H* Preliminary micro results at discharge 07/01/24 19:28 Blood Culture - Preliminary Blood NO GROWTH AFTER 48 HOURS DS: Diagnosis Discharge Diagnosis (1) Cystitis: Status: Acute Code(s): N30.90 - Cystitis, unspecified without hematuria (2) History of ESBL E. coli infection: Status: Acute Code(s): Z86.19 - Personal history of other infectious and parasitic diseases (3) COPD (chronic obstructive pulmonary disease): Status: Chronic Code(s): J44.9 - Chronic obstructive pulmonary disease, unspecified Qualifiers: COPD type: unspecified COPD Qualified Code(s): J44.9 - Chronic obstructive pulmonary disease, unspecified (4) Type 2 diabetes mellitus with diabetic neuropathy, with long-term current use of insulin: Status: Chronic Code(s): E11.40 - Type 2 diabetes mellitus with diabetic neuropathy, unspecified; Z79.4 - FPC (current) use of insulin (5) Functional paraparesis: Status: Acute Code(s): F44.4 - Conversion disorder with motor symptom or deficit (6) HTN (hypertension): Status: Acute Code(s): I10 - Essential (primary) hypertension Qualifiers: Hypertension type: primary hypertension Qualified Code(s): I10 - Essential (primary) hypertension (7) HLD (hyperlipidemia): Status: Acute Code(s): E78.5 - Hyperlipidemia, unspecified Qualifiers: Hyperlipidemia type: unspecified Qualified Code(s): E78.5 - Hyperlipidemia, unspecified Meds Home Medications and Allergies Home Medications ?Medication ?Instructions ?Recorded ?Confirmed ?Type furosemide 40 mg tablet 40 mg PO DAILY 06/10/23 07/02/24 History insulin glargine 100 unit/mL 10 unit SQ HS 06/10/23 07/02/24 History subcutaneous solution (Lantus U-100 Insulin) lisinopril 10 mg tablet 10 mg PO DAILY 06/11/23 07/02/24 History melatonin 10 mg tablet 10 mg PO HS 06/11/23 07/02/24 History albuterol sulfate 90 mcg/actuation 2 puff inhalation Q4HP PRN 08/05/23 07/02/24 History aerosol inhaler Shortness Of Breath budesonide-formoterol HFA 160 2 puff inhalation Q12H 08/05/23 07/02/24 History mcg-4.5 mcg/actuation aerosol inhaler (Symbicort) ropinirole 0.25 mg tablet 0.25 mg PO HS #90 tabs 09/16/23 07/02/24 Rx acetaminophen 500 mg tablet 1,000 mg PO Q6HP PRN Headache and 11/19/23 07/02/24 History (Tylenol Extra Strength) Pain insulin NPH-regular 70-30 U-100 30 unit SQ AM 11/19/23 07/02/24 History insulin 100 unit/mL subcutaneous pen (Novolin 70-30 FlexPen U-100 Insulin) sennosides 8.6 mg tablet 17.2 mg PO HS 11/19/23 07/02/24 History magnesium oxide 400 mg (241.3 mg 400 mg PO BID deficiency 90 days 01/01/24 07/02/24 Rx magnesium) tablet #180 tabs aspirin 81 mg tablet,delayed 81 mg PO DAILY #1 tab 01/05/24 07/02/24 Rx release (Enteric Coated Aspirin) carvedilol 3.125 mg tablet 3.125 mg PO BIDWMEAL #180 tabs 04/28/24 07/02/24 Rx famotidine 20 mg tablet 20 mg PO DAILY #90 tabs 04/28/24 07/02/24 Rx rivaroxaban 2.5 mg tablet (Xarelto) 2.5 mg PO BID DVT prophylaxis 90 05/10/24 07/02/24 Rx days #180 tabs buspirone 30 mg tablet 30 mg PO BID #60 tabs 05/28/24 07/02/24 Rx clonazepam 0.5 mg tablet 0.5 mg PO TID #90 tabs 06/01/24 07/02/24 Rx gabapentin 800 mg tablet 800 mg PO TID #90 tabs 06/01/24 07/02/24 Rx hydrocodone 7.5 mg-acetaminophen 1 tab PO Q6H PRN pain #120 tabs 06/01/24 07/02/24 Rx 325 mg tablet levothyroxine 150 mcg tablet 150 mcg PO AM #90 tabs 06/01/24 07/02/24 Rx atorvastatin 80 mg tablet 80 mg PO HS #90 tabs 06/04/24 07/02/24 Rx cholecalciferol (vitamin D3) 1,250 1,250 mcg PO WEEKLY 07/02/24 07/02/24 History mcg (50,000 unit) capsule desvenlafaxine succinate 100 mg 100 mg PO DAILY 07/02/24 07/02/24 History tablet,extended release 24 hr lidocaine 5 % topical patch 1 patch topical DAILY 07/02/24 07/02/24 History mirtazapine 15 mg tablet 15 mg PO HS 07/02/24 07/02/24 History quetiapine 25 mg tablet 25 mg PO HS 07/02/24 07/02/24 History semaglutide 1 mg/dose (4 mg/3 mL) 1 mg SQ WEEKLY 07/02/24 07/02/24 History subcutaneous pen injector prednisone 50 mg tablet 50 mg PO DAILY 5 days #5 tabs 07/04/24 Rx New Prescriptions to Start Prescriptions: Svetlana Lopez Allergies Allergy/AdvReac Type Severity Reaction Status Date / Time protamine Allergy Verified 05/28/24 10:58 Discharge Plan Disposition Patient Disposition: Home Health Service Condition: Good Discharge Order Discharge Orders: Discharge Order (Routine); Ordered 07/04/24 Ordered By: Svetlana Bills Follow up Plan Follow up with: Dean Burns MD [Referring] - Enter time for follow up Suzi Burns PA [Primary Care Provider] - 07/09/24 11:00 am Prescriptions/Medication Reconciliation: New prednisone 50 mg tablet 50 mg PO DAILY 5 Days Qty: 5 0RF Continued buspirone 30 mg tablet 30 mg PO BID Qty: 60 2RF hydrocodone-acetaminophen 7.5-325 mg tablet 1 tab PO Q6H PRN (Reason: pain) Qty: 120 0RF gabapentin 800 mg tablet 800 mg PO TID Qty: 90 2RF clonazepam 0.5 mg tablet 0.5 mg PO TID Qty: 90 1RF ropinirole 0.25 mg tablet 0.25 mg PO HS Qty: 90 0RF Rx Instructions: Administer 1-3 hours before bedtime magnesium oxide 400 mg (241.3 mg magnesium) tablet 400 mg PO BID 90 Days Qty: 180 0RF aspirin [Enteric Coated Aspirin] 81 mg tablet,delayed release (DR/EC) 81 mg PO DAILY Qty: 1 0RF carvedilol 3.125 mg tablet 3.125 mg PO BIDWMEAL Qty: 180 2RF famotidine 20 mg tablet 20 mg PO DAILY Qty: 90 3RF Xarelto 2.5 mg tablet 2.5 mg PO BID 90 Days Qty: 180 0RF levothyroxine 150 mcg tablet 150 mcg PO AM Qty: 90 3RF atorvastatin 80 mg tablet 80 mg PO HS Qty: 90 0RF furosemide 40 mg tablet 40 mg PO DAILY insulin glargine [Lantus U-100 Insulin] 100 unit/mL solution 10 unit SQ HS lisinopril 10 mg Tablet 10 mg PO DAILY melatonin 10 mg Tablet 10 mg PO HS budesonide-formoterol [Symbicort] 160-4.5 mcg/actuation HFA aerosol inhaler 2 puff inhalation Q12H albuterol sulfate 90 mcg/actuation HFA aerosol inhaler 2 puff INHALATION Q4HP PRN (Reason: Shortness Of Breath) sennosides 8.6 mg tablet 17.2 mg PO HS acetaminophen [Tylenol Extra Strength] 500 mg tablet 1,000 mg PO Q6HP PRN (Reason: Headache and Pain ) Novolin 70-30 FlexPen U-100 100 unit/mL (70-30) insulin pen 30 unit SQ AM quetiapine 25 mg tablet 25 mg PO HS Patient Comments: TAKE 1 TABLET BY MOUTH EVERY NIGHT AT BEDTIME cholecalciferol (vitamin D3) 1,250 mcg (50,000 unit) capsule 1,250 mcg PO WEEKLY Patient Comments: TAKE 1 CAPSULE ORALLY WEEKLY desvenlafaxine succinate 100 mg tablet extended release 24 hr 100 mg PO DAILY Patient Comments: TAKE ONE TABLET BY MOUTH DAILY lidocaine 5 % adhesive patch,medicated 1 patch topical DAILY Rx Instructions: APPLY 1 PATCH ON MOST PAINFUL AREA FOR UP TO 12 HOURS DAILY mirtazapine 15 mg tablet 15 mg PO HS Rx Instructions: TAKE 1 TABLET BY MOUTH EVERY NIGHT AT BEDTIME semaglutide 1 mg/dose (4 mg/3 mL) pen injector 1 mg SQ WEEKLY Problem Reconciliation Problems Reviewed?: Yes Patient Discharge Instructions ACTIVITY: Ambulate as tolerated DIET: continue same diet Patient Instructions: Chronic Obstructive Pulmonary Disease, DI for Urinary Tract Infection (UTI), DI for Hyperglycemia -- Adult Print Language: Azeri Providers Primary Care Provider: Suzi Burns Admit Provider: Edin Mosley Attending Provider: Edin Mosley
[2024-07-04 12:59] VITALS: PULSE 79; PULSE 84; O2SAT 90
--- NOTE | 2024-07-05 13:15 | SW/DCPLANNER ---
Addendum entered by Gloria Castrejon 07/05/24 14:04: Evi martin/ [facility] stated that services will resume. Original Note: Hospital discharge follow up call: patient stated that she is doing well at home. Patient is currently established w/ [facility] and would like to resume services. I will fax new order and updated information to Evi martin/ [facility]. Patient was able to [employer] new medication and is aware of follow up appointment. Patient did not have any further questions/needs at this time.
== END 2024-07-04 15:15 | disposition home health service (06) ==
LOC: ER 19:18 → 2ND 19:31
PROVIDERS: Internal Medicine; Nurse Practitioner Acute Care; Admitting Provider Internal Medicine; Emergency Provider Student in an Organized Health Care Education/Training Program; PCP Physician Assistant; Visit Provider Internal Medicine
DX: N30.90 Cystitis, unspecified without hematuria (principal); Z09 Encounter for follow-up examination after completed treatment for conditions other than malignant neoplasm; Z86.19 Personal history of other infectious and parasitic diseases; R10.13 Epigastric pain; J96.21 Acute and chronic respiratory failure with hypoxia; J44.9 Chronic obstructive pulmonary disease, unspecified; E11.40 Type 2 diabetes mellitus with diabetic neuropathy, unspecified; Z79.4 Long term (current) use of insulin; I69.365 Other paralytic syndrome following cerebral infarction, bilateral; F44.4 Conversion disorder with motor symptom or deficit; L89.321 Pressure ulcer of left buttock, stage 1; I10 Essential (primary) hypertension; E78.2 Mixed hyperlipidemia; E03.9 Hypothyroidism, unspecified; I25.10 Atherosclerotic heart disease of native coronary artery without angina pectoris; G89.4 Chronic pain syndrome; E66.01 Morbid (severe) obesity due to excess calories; Z68.41 Body mass index [BMI] 40.0-44.9, adult; Z79.899 Other long term (current) drug therapy; Z89.512 Acquired absence of left leg below knee; F17.210 Nicotine dependence, cigarettes, uncomplicated; D72.829 Elevated white blood cell count, unspecified
CPT/HCPCS: 36415; 71045; 71275; 80048; 80053; 81001; 82803; 82962; 83605; 83880; 84484; 85025; 87040; 87086; 87186; 87581; 87632; 87635; 87636; 87798; 93005; 94640; 94761; 99285; G0378; J1100; J1335; J2919; J7030; J7620; Q9967

== ENCOUNTER 2024-07-29 10:40 | Outpatient (CLI) | payer MEDICARE, MEDICAID, SELFPAY ==
[2024-07-29 18:44] LABS: Basophils # 0.1 K/mm3 (0-0.2); Basophils % 0.6 % (0.1-2.0); Eosinophils # 0.4 K/mm3 (0.0-0.4); Eosinophils % 4.2 % (0.1-12.0); Hematocrit 38.3 % (37.0-47.0); Hemoglobin 11.8 g/dL (12.2-16.2); Lymphocytes # 2.3 K/mm3 (0.7-4.5); Lymphocytes % 24.8 % (10-50); Mean Corpuscular HGB Conc 30.8 g/dL (31.8-35.4); Mean Corpuscular Hemoglobin 31.4 pg (27.0-31.2); Mean Corpuscular Volume 102.1 fl (81-99); Mean Platelet Volume 8.6 fl (7.4-10.4); Monocytes # 0.4 K/mm3 (0.1-1.0); Monocytes % 4.2 % (1.7-9.3); Neutrophils # 6.3 K/mm3 (1.8-7.8); Neutrophils % 66.2 % (37.0-80.0); Platelet Count 385 K/mm3 (142-424); Red Blood Count 3.75 M/mm3 (4.20-5.40); Red Cell Distribution Width 14.7 % (11.5-17.5); White Blood Count 9.5 K/mm3 (4.8-10.8)
[2024-07-29 19:29] LABS: Alanine Aminotransferase 19 U/L (12-78); Albumin Level 3.1 g/dl (3.5-5.0); Alkaline Phosphatase 128 U/L (38-126); Anion Gap 10.7 mEq/L (5-15); Aspartate Amino Transferase 21 U/L (14-36); Bilirubin,Total 0.3 mg/dl (0.2-1.3); Blood Urea Nitrogen 25 mg/dl (7-17); Calcium 8.7 mg/dl (8.4-10.2); Carbon Dioxide 36 mmol/L (22.0-30.0); Chloride 93 mmol/L (98-107); Estimated Glomerular Filt Rate 103 ml/min (>60); GFR (African American) 124 ML/MIN (>60); Glucose 383 mg/dl (74-100); Potassium 3.7 mmoL/L (3.5-5.1); Sodium 136 mmol/L (136-145); Total Protein,Serum 6.1 g/dl (6.3-8.2)
[2024-07-29 19:48] LABS: Hemoglobin A1C 11.9 % (4.0-6.0)
[2024-07-29 21:54] LABS: HIV (1&2) Antibody Rapid NONREACTIVE (NONREACTIVE)
[2024-07-31 09:32] LABS: HCV Ab Non Reactive (Non Reactive)
== END 2024-07-29 23:59 | disposition home or self-care (01) ==
LOC: LAB.DROPOF 07-30 10:42
PROVIDERS: PCP Internal Medicine; Visit Provider Internal Medicine
DX: L08.9 Local infection of the skin and subcutaneous tissue, unspecified (principal); T14.8XXA Other injury of unspecified body region, initial encounter; I10 Essential (primary) hypertension; Z11.59 Encounter for screening for other viral diseases; Z79.4 Long term (current) use of insulin; E11.40 Type 2 diabetes mellitus with diabetic neuropathy, unspecified; E78.5 Hyperlipidemia, unspecified; F41.9 Anxiety disorder, unspecified; F17.200 Nicotine dependence, unspecified, uncomplicated; Z78.9 Other specified health status; E66.01 Morbid (severe) obesity due to excess calories; Z68.41 Body mass index [BMI] 40.0-44.9, adult; L89.90 Pressure ulcer of unspecified site, unspecified stage; L30.4 Erythema intertrigo; E03.9 Hypothyroidism, unspecified; F32.9 Major depressive disorder, single episode, unspecified; G89.4 Chronic pain syndrome; T17.908A Unspecified foreign body in respiratory tract, part unspecified causing other injury, initial encounter
CPT/HCPCS: 80053; 83036; 85025; 86803; 87389

== ENCOUNTER 2024-07-31 16:16 | Emergency (ER) | payer MEDICARE, MEDICAID, SELFPAY ==
[2024-07-31] VITALS (9 sets, daily range): BP systolic 154–207; BP diastolic 79–157; PULSE 83–94; RESP 18–20; TEMP 36.9–37; O2SAT 92–97; BMI 47.9
--- NOTE | 2024-07-31 16:16 | ECG_ITS ---
APPROVED REPORT Exam: Resting ECG HR:93 bpm ECG Measurements Heart Rate 93 AXES OH 171 P 22 QRSd 96 QRS 1 QT 386 T 83 QTc 436 Conclusion SINUS RHYTHM NONSPECIFIC T-WAVE ABNORMALITY BORDERLINE ECG Electronically signed by : SOLOMON ENCINAS, 07/31/2024 23:58:50
--- NOTE | 2024-07-31 16:16 | XR_ITS ---
PROCEDURE INFORMATION: Exam: XR Chest Exam date and time: 07/31/2024 4:24 PM Age: 58 years old Clinical indication: Shortness of breath; Additional info: SOA TECHNIQUE: Imaging protocol: Radiologic exam of the chest. Views: 1 view. COMPARISON: CT ANGIO CHEST PE PROTOCOL 07/02/2024 10:43 AM FINDINGS: Lungs: Right mid lung subsegmental atelectasis. The chest is expiratory but otherwise clear. Pleural spaces: Unremarkable. No pleural effusion. No pneumothorax. Heart/Mediastinum: Unremarkable. No cardiomegaly. Bones/joints: Unremarkable. Soft tissues: Unremarkable. IMPRESSION: Right mid lung subsegmental atelectasis, otherwise clear chest
--- NOTE | 2024-07-31 16:19 | [facility].EDCP ---
Discharge Plan Disposition Patient Disposition: Home, Self-Care Condition: Good Prescriptions Prescriptions: No Action buspirone 30 mg tablet 30 mg PO BID Qty: 60 2RF (DME) True Metrix Glucose Test Strip Strip See Rx Instructions .ROUTE .MEDSUPPLY Qty: 10 Rx Instructions: As directed clonazepam 0.5 mg tablet 0.5 mg PO TID Qty: 75 1RF duloxetine 60 mg capsule,delayed release(DR/EC) 120 mg PO DAILY 30 Days Qty: 60 2RF gabapentin 600 mg tablet 600 mg PO TID Qty: 90 3RF insulin glargine [Lantus U-100 Insulin] 100 unit/mL solution 15 unit SQ HS Novolin 70-30 FlexPen U-100 100 unit/mL (70-30) insulin pen 35 unit SQ AM Qty: 15 3RF levothyroxine 125 mcg capsule 125 mcg PO DAILY Qty: 30 2RF hydrocodone-acetaminophen 7.5-325 mg tablet 1 tab PO Q6H PRN (Reason: pain) Qty: 120 0RF meloxicam 15 mg tablet 15 mg PO DAILY Qty: 30 2RF nystatin 100,000 unit/gram cream 1 applic topical BID Qty: 15 1RF Rx Instructions: apply to rashunder left breast. ropinirole 0.25 mg tablet 0.25 mg PO HS Qty: 90 0RF Rx Instructions: Administer 1-3 hours before bedtime magnesium oxide 400 mg (241.3 mg magnesium) tablet 400 mg PO BID 90 Days Qty: 180 0RF aspirin [Enteric Coated Aspirin] 81 mg tablet,delayed release (DR/EC) 81 mg PO DAILY Qty: 1 0RF carvedilol 3.125 mg tablet 3.125 mg PO BIDWMEAL Qty: 180 2RF famotidine 20 mg tablet 20 mg PO DAILY Qty: 90 3RF Xarelto 2.5 mg tablet 2.5 mg PO BID 90 Days Qty: 180 0RF atorvastatin 80 mg tablet 80 mg PO HS Qty: 90 0RF furosemide 40 mg tablet 40 mg PO DAILY lisinopril 10 mg Tablet 10 mg PO DAILY melatonin 10 mg Tablet 10 mg PO HS budesonide-formoterol [Symbicort] 160-4.5 mcg/actuation HFA aerosol inhaler 2 puff inhalation Q12H albuterol sulfate 90 mcg/actuation HFA aerosol inhaler 2 puff INHALATION Q4HP PRN (Reason: Shortness Of Breath) sennosides 8.6 mg tablet 17.2 mg PO HS cholecalciferol (vitamin D3) 1,250 mcg (50,000 unit) capsule 1,250 mcg PO WEEKLY Patient Comments: TAKE 1 CAPSULE ORALLY WEEKLY lidocaine 5 % adhesive patch,medicated 1 patch topical DAILY Rx Instructions: APPLY 1 PATCH ON MOST PAINFUL AREA FOR UP TO 12 HOURS DAILY mirtazapine 15 mg tablet 15 mg PO HS Rx Instructions: TAKE 1 TABLET BY MOUTH EVERY NIGHT AT BEDTIME semaglutide 1 mg/dose (4 mg/3 mL) pen injector 1 mg SQ WEEKLY Referrals Follow up/Referrals: Provider,Blair Zapien [Tech - Non Licensed] - See instructions Activity Restrictions/Add. Instructions Additional Instructions/Restrictions: You were evaluated in the emergency department today. Please make sure your oxygen stays connected at home and use short tubing. Follow-up closely with your primary care provider. Return to the emergency department for new or worsening symptoms Clinical Impressions Clinical Impression: Chronic hypoxic respiratory failure Instructions Patient Instructions: DI for Chronic Obstructive Pulmonary Disease, DI for Shortness of Breath Print Language Print Language: Guinean Discharge ED Provider: Denisse Kincaid HPI General Chief Complaint: Recheck/Abnormal Lab/Rx Stated Complaint: Shortness of breath Time Seen by Provider: 07/31/24 16:17 History of Present Illness HPI narrative: This patient is a 58-year-old female with a history of COPD with chronic respiratory failure on 2 L nasal cannula at baseline, hypertension, hyperlipidemia, type 2 diabetes, pressure wounds, CAD, CHF, prior CVA, BKA, general debility presenting to the emergency department for evaluation with concern for shortness of breath. Patient called EMS because she was feeling short of breath and felt like her heart was racing. EMS arrived on scene and noted that her oxygen was disconnected from the tank. Patient states she did not know this and her caregiver who was taking care of her at home did not notice either. Once they hooked her oxygen back up, she is feeling a lot better. She denies any concerns or complaints and states she is feeling fine at this time. She arrives by [facility] who noted that her vitals have been normal en route on her home oxygen. Patient not complaining of anything at this time except pain in her chronic bedsores. She reports that she supposed be placed at [facility] soon by her primary care provider, who she just establish care with 2 days ago Related Data Home Medications ?Medication ?Instructions ?Recorded ?Confirmed furosemide 40 mg tablet 40 mg PO DAILY 06/10/23 07/29/24 lisinopril 10 mg tablet 10 mg PO DAILY 06/11/23 07/29/24 melatonin 10 mg tablet 10 mg PO HS 06/11/23 07/29/24 albuterol sulfate 90 mcg/actuation 2 puff inhalation Q4HP PRN 08/05/23 07/29/24 aerosol inhaler Shortness Of Breath budesonide-formoterol HFA 160 2 puff inhalation Q12H 08/05/23 07/29/24 mcg-4.5 mcg/actuation aerosol inhaler (Symbicort) sennosides 8.6 mg tablet 17.2 mg PO HS 11/19/23 07/29/24 cholecalciferol (vitamin D3) 1,250 1,250 mcg PO WEEKLY 07/02/24 07/29/24 mcg (50,000 unit) capsule lidocaine 5 % topical patch 1 patch topical DAILY 07/02/24 07/29/24 mirtazapine 15 mg tablet 15 mg PO HS 07/02/24 07/29/24 semaglutide 1 mg/dose (4 mg/3 mL) 1 mg SQ WEEKLY 07/02/24 07/29/24 subcutaneous pen injector blood sugar diagnostic (True #10 ea 07/29/24 07/29/24 Metrix Glucose Test Strip) insulin glargine 100 unit/mL 15 unit SQ HS 07/29/24 07/29/24 subcutaneous solution (Lantus U-100 Insulin) Previous Rx's ?Medication ?Instructions ?Recorded ropinirole 0.25 mg tablet 0.25 mg PO HS #90 tabs 09/16/23 magnesium oxide 400 mg (241.3 mg 400 mg PO BID deficiency 90 days 01/01/24 magnesium) tablet #180 tabs aspirin 81 mg tablet,delayed 81 mg PO DAILY #1 tab 01/05/24 release (Enteric Coated Aspirin) carvedilol 3.125 mg tablet 3.125 mg PO BIDWMEAL #180 tabs 04/28/24 famotidine 20 mg tablet 20 mg PO DAILY #90 tabs 04/28/24 rivaroxaban 2.5 mg tablet (Xarelto) 2.5 mg PO BID DVT prophylaxis 90 05/10/24 days #180 tabs buspirone 30 mg tablet 30 mg PO BID #60 tabs 05/28/24 atorvastatin 80 mg tablet 80 mg PO HS #90 tabs 06/04/24 clonazepam 0.5 mg tablet 0.5 mg PO TID #75 tabs 07/29/24 duloxetine 60 mg capsule,delayed 120 mg (2 x 60 mg) PO DAILY 30 07/29/24 release days #60 caps gabapentin 600 mg tablet 600 mg PO TID #90 tabs 07/29/24 hydrocodone 7.5 mg-acetaminophen 1 tab PO Q6H PRN pain #120 tabs 07/29/24 325 mg tablet insulin NPH-regular 70-30 U-100 35 unit (0.35 mL) SQ AM #15 mL 07/29/24 insulin 100 unit/mL subcutaneous pen (Novolin 70-30 FlexPen U-100 Insulin) levothyroxine 125 mcg capsule 125 mcg PO DAILY #30 caps 07/29/24 meloxicam 15 mg tablet 15 mg PO DAILY #30 tabs 07/29/24 nystatin 100,000 unit/gram topical 1 applic topical BID #15 grams 07/29/24 cream Allergies Allergy/AdvReac Type Severity Reaction Status Date / Time protamine Allergy Verified 07/29/24 15:33 [facility] Disclaimer: The information contained in this section may have been updated after the patient was seen, as this information can be updated by other users. Medical History Anxiety Hyperlipidemia Hypertensive heart disease without heart failure Acute cystitis Diabetes COPD (chronic obstructive pulmonary disease) Hyperlipidemia Hypertension Sacral pressure ulcer UTI due to extended-spectrum beta lactamase (ESBL) producing Escherichia coli Right sided weakness Depression Obesity Right flaccid hemiplegia Urinary tract infection due to Proteus Urinary tract infection due to Klebsiella species Diastolic dysfunction PAD (peripheral artery disease) CVA (cerebral vascular accident) CAD (coronary artery disease) Hypotension Pre-op evaluation Nasal fracture Right femoral fracture Dehydration Anxiety and depression Acute bronchitis Ulcer of right foot due to type 2 diabetes mellitus Onychocryptosis Onychomycosis Encounter for wound care Pyelonephritis Sepsis Fall Tibial plateau fracture, right MRSA (methicillin resistant staph aureus) culture positive Foot abscess, right Diabetic foot infection Blister of foot 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) Obesity Syncope Abnormal nuclear stress test Diastolic dysfunction HTN (hypertension) CAD (coronary artery disease) SOB (shortness of breath) Angina pectoris CHF (congestive heart failure) Diabetic ulcer of right heel associated with diabetes mellitus due to underlying condition, limited to breakdown of skin Ulcer of right foot due to type 2 diabetes mellitus Left-sided weakness BKA stump complication Respiratory failure COVID-19 Gangrene of left foot Cellulitis of right foot Encounter for wound care Neuropathy Ulcer of left foot due to type 2 diabetes mellitus Cellulitis of left foot Amputation of one or more toes Infected wound Diabetic Foot Ulcer Abnormal ankle brachial index (NICOLAS) Recent cerebrovascular accident (CVA) History of CVA (cerebrovascular accident) 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 Decreased pedal pulses Edema of left lower extremity Diabetic foot Onychodystrophy Onychomycosis PVD (peripheral vascular disease) Keratosis Contusion of ribs Claudication Left leg swelling Pre-ulcerative calluses Pain due to onychomycosis of toenail Onychogryphosis Microalbuminuric diabetic nephropathy Hypothyroidism Varicose veins of both lower extremities COPD with exacerbation Smoker Low back pain Hypoxia Wheezing Diabetic neuropathy, type II diabetes mellitus Vitamin D deficiency Peripheral arterial occlusive disease Diabetes mellitus Coronary arteriosclerosis Dyspnea Surgical History History of hip surgery History of left below knee amputation S/P BKA (below knee amputation) unilateral Status post foot surgery History of amputation of left great toe Family History Other Breast cancer Diabetes Heart attack Heart disease Hypothyroid Renal disease Stroke Social History Smoking Status: Never smoker second hand exposure: Yes alcohol intake: never substance use type: denies use current occupational status: disabled Travel in the last 8 weeks: None household members: none housing: correction current occupational exposures/hazards: No caffeine: No ROS Obtained: Yes All systems reviewed & no additional complaints except as documented Physical Exam General General appearance: alert, in no apparent distress and obese Comment: in an old hospital gown from previous visit covered in urine. Head Head exam: atraumatic and normocephalic Eye Eye exam: Present normal appearance, PERRL and EOMI ENT ENT exam: Present normal exam, normal oropharynx, mucous membranes moist and normal external ear exam Neck Neck exam: Present normal inspection, full ROM and trachea midline; Absent tenderness Chest Chest inspection: Present normal inspection and symmetric chest wall rise; Absent tenderness Respiratory Respiratory exam: Present normal lung sounds bilaterally; Absent respiratory distress, wheezes, stridor or accessory muscle use Cardiovascular Cardiovascular exam: Present regular rate and normal rhythm Abdominal Exam Abdominal exam: Present soft; Absent distention, tenderness or guarding Extremities Exam Extremities exam: Present normal capillary refill; Absent tenderness or edema Back Exam Back exam: Present normal inspection and full ROM; Absent tenderness Neurological Exam Neurological exam: Present alert, oriented X3 and CN II-XII intact; Absent motor sensory deficit Psychiatric Psychiatric exam: Present normal affect and normal mood Skin Skin exam: Present warm and dry HEART Score HEART Score HEART Score assessment performed?: No Critical Care Critical Care Time Critical Care Time: No Medical Decision Making Edgar Inquiry Pt receiving controlled substance: No Vital Signs Vital Signs: 07/31/24 16:16 07/31/24 17:15 Temperature 98.5 F Temperature Source Oral Pulse Rate 94 H Pulse Rate [Right Radial] 90 Respiratory Rate 20 18 Blood Pressure 185/147 H Blood Pressure [Right Arm] 154/79 H Blood Pressure Mean 154 Blood Pressure Mean [Right Arm] 104 02 Sat by Pulse Oximetry 94 L 94 L Oxygen Delivery Method Nasal Cannula Nasal Cannula Oxygen Flow Rate (LPM) 3 4 Response Orders (Tests/Meds): ORDERS Category Date Time Status CXR --portable [XR chest portable] Stat Exams 07/31/24 16:16 Taken ECG Data Tracing #1: Attestation: I reviewed this ECG and interpreted as documented below: ECG Narrative: Normal sinus rhythm with a ventricular rate of [address] changes concerning for ischemia. Normal axis and intervals ECG initial impression date: 07/31/24 ECG initial impression time: 17:18 MDM Narrative Medical Decision Narrative: In summary, this patient is a 58-year-old female presenting to the Emergency Department for evaluation of shortness of breath after her home oxygen became disconnected. Differential diagnoses considered include but are not limited to acute on chronic respiratory failure, pneumonia, COPD exacerbation. Ruling out the most morbid conditions drove assessment. It should be noted patient's history includes COPD and CHF on chronic oxygen at home which may or may not be at goal therapy. This complicates all aspects of care by increasing patient's risk for morbidity. I reviewed patient's past medical records and noted previous evaluations related to issues with breathing in the past as well as her most recent PCP evaluation 2 days ago. On exam, the patient is sitting upright in no acute distress with clear lungs. Her O2 saturation is normal on her home oxygen. EKG and chest x-ray were obtained. EKG is reassuring with no significant changes. I independently interpreted x-ray prior to the radiologist read and noted no acute changes from previous imaging and no obvious new focal pneumonia. Please see their read for final interpretation. Ultimately, now that the patient is hooked back up to oxygen which was disconnected at home, she is no longer having shortness of breath. She feels fine. Given this, I do not feel that labs or other imaging are indicated. She is resting comfortably on her home oxygen on multiple subsequent reassessments with no increased work of breathing and no recurrence of symptoms. Given this, I feel that she is appropriate for discharge home. She is awaiting placement in nursing facility and does not wish to expedite placement with admission. Strict turn precautions were given and the patient was discharged back to her home caregivers in stable condition.
--- NOTE | 2024-07-31 16:32 | PC.NURSE ---
XR AT BEDSIDE
--- NOTE | 2024-07-31 21:47 | PC.NURSE ---
EMS arrived at 2145 to transport pt back home Care transferred to EMS Vitals at time of transport 163/79 94% NC 2L 89 heart rate 20 respirations and 98.5 oral temp
== END 2024-07-31 21:48 | disposition home or self-care (01) ==
PROVIDERS: Emergency Provider Emergency Medicine; PCP Internal Medicine
DX: J96.21 Acute and chronic respiratory failure with hypoxia (principal); J44.9 Chronic obstructive pulmonary disease, unspecified; I11.0 Hypertensive heart disease with heart failure; E78.5 Hyperlipidemia, unspecified; I50.9 Heart failure, unspecified; E11.51 Type 2 diabetes mellitus with diabetic peripheral angiopathy without gangrene; I25.10 Atherosclerotic heart disease of native coronary artery without angina pectoris; E11.40 Type 2 diabetes mellitus with diabetic neuropathy, unspecified; E03.9 Hypothyroidism, unspecified; Z86.73 Personal history of transient ischemic attack (TIA), and cerebral infarction without residual deficits
CPT/HCPCS: 71045; 93005; 99283

== ENCOUNTER 2024-09-22 17:12 | Emergency (ER) | payer MEDICARE, MEDICAID, SELFPAY ==
[2024-09-22 17:25] VITALS: BP 143/75; PULSE 86; RESP 18; TEMP 36.9; O2SAT 95; BMI 36.7
[2024-09-22 17:31] VITALS: BP 130/79; PULSE 81; O2SAT 97
--- NOTE | 2024-09-22 17:39 | XR_ITS ---
PROCEDURE INFORMATION: Exam: XR Chest Exam date and time: 09/22/2024 5:42 PM Age: 58 years old Clinical indication: Shortness of breath; Additional info: SOA TECHNIQUE: Imaging protocol: Radiologic exam of the chest. Views: 1 view. COMPARISON: No relevant prior studies available. FINDINGS: Lungs: Linear atelectasis is noted in the right mid lung. Pleural spaces: No large effusion or pneumothorax. Heart/Mediastinum: No evidence of mediastinal widening or cardiac silhouette enlargement; the mediastinum and heart appear within normal limits for contour and size. Diaphragm: There is elevation of the right hemidiaphragm. Bones/joints: No evidence of acute osseous abnormalities within the visualized portions of the thoracic spine and ribs. Osseous structures appear appropriate for patient age. Other findings: The patient is rotated on the examination which somewhat alters the expected anatomic relationships and limits the study. IMPRESSION: No dense parenchymal consolidation, pleural effusion, or pneumothorax.
--- NOTE | 2024-09-22 17:40 | ED_ITS ---
<Statement entered by Denisse Kincaid DO - 09/22/24 22:53> I was consulted by the DHARA, and we discussed the complexity of the problems being addressed. I approved the treatment and management plan for this patient's care in the emergency department, thus performing a substantive portion of the medical decision making. Denisse Kincaid DO Discharge Plan Disposition Patient Disposition: Home, Self-Care Condition: Good Prescriptions Prescriptions: New cefdinir 300 mg capsule 300 mg PO BID 7 Days Qty: 14 0RF No Action (DME) True Metrix Glucose Test Strip Strip See Rx Instructions .ROUTE .MEDSUPPLY Qty: 10 Rx Instructions: As directed duloxetine 60 mg capsule,delayed release(DR/EC) 120 mg PO DAILY 30 Days Qty: 60 2RF gabapentin 600 mg tablet 600 mg PO TID Qty: 90 3RF insulin glargine [Lantus U-100 Insulin] 100 unit/mL solution 15 unit SQ HS Novolin 70-30 FlexPen U-100 100 unit/mL (70-30) insulin pen 35 unit SQ AM Qty: 15 3RF levothyroxine 125 mcg capsule 125 mcg PO DAILY Qty: 30 2RF meloxicam 15 mg tablet 15 mg PO DAILY Qty: 30 2RF nystatin 100,000 unit/gram cream 1 applic topical BID Qty: 15 1RF Rx Instructions: apply to rashunder left breast. ropinirole 0.25 mg tablet 0.25 mg PO HS Qty: 90 0RF Rx Instructions: Administer 1-3 hours before bedtime magnesium oxide 400 mg (241.3 mg magnesium) tablet 400 mg PO BID 90 Days Qty: 180 0RF aspirin [Enteric Coated Aspirin] 81 mg tablet,delayed release (DR/EC) 81 mg PO DAILY Qty: 1 0RF carvedilol 3.125 mg tablet 3.125 mg PO BIDWMEAL Qty: 180 2RF famotidine 20 mg tablet 20 mg PO DAILY Qty: 90 3RF melatonin 10 mg tablet 30 mg PO HS buspirone 30 mg tablet See Rx Instructions .ROUTE .COMPLEX Qty: 60 2RF Dose Instruction: TAKE ONE TABLET BY MOUTH TWICE A DAY Rx Instructions: TAKE ONE TABLET BY MOUTH TWICE A DAY clonazepam 0.5 mg tablet 0.5 mg PO TID Qty: 75 1RF hydrocodone-acetaminophen 7.5-325 mg tablet 1 tab PO Q6H PRN (Reason: pain) Qty: 120 0RF Xarelto 2.5 mg tablet 2.5 mg PO BID 90 Days Qty: 180 0RF atorvastatin 80 mg tablet 80 mg PO HS Qty: 90 0RF quetiapine 100 mg tablet See Rx Instructions .ROUTE .COMPLEX Qty: 30 0RF Dose Instruction: TAKE 1 TABLET BY MOUTH EVERY DAY FOR SLEEP Rx Instructions: TAKE 1 TABLET BY MOUTH EVERY DAY FOR SLEEP furosemide 40 mg tablet 40 mg PO DAILY lisinopril 10 mg Tablet 10 mg PO DAILY budesonide-formoterol [Symbicort] 160-4.5 mcg/actuation HFA aerosol inhaler 2 puff inhalation Q12H albuterol sulfate 90 mcg/actuation HFA aerosol inhaler 2 puff INHALATION Q4HP PRN (Reason: Shortness Of Breath) sennosides 8.6 mg tablet 17.2 mg PO HS cholecalciferol (vitamin D3) 1,250 mcg (50,000 unit) capsule 1,250 mcg PO WEEKLY Patient Comments: TAKE 1 CAPSULE ORALLY WEEKLY lidocaine 5 % adhesive patch,medicated 1 patch topical DAILY Rx Instructions: APPLY 1 PATCH ON MOST PAINFUL AREA FOR UP TO 12 HOURS DAILY mirtazapine 15 mg tablet 15 mg PO HS Rx Instructions: TAKE 1 TABLET BY MOUTH EVERY NIGHT AT BEDTIME semaglutide 1 mg/dose (4 mg/3 mL) pen injector 1 mg SQ WEEKLY Referrals Follow up/Referrals: Provider,Referral, MD [Referring] - See instructions Activity Restrictions/Add. Instructions Additional Instructions/Restrictions: Please return to the emergency department for any worsening signs or symptoms, I recommend good hydration, follow-up with primary care provider as directed, continue to take all other medications as prescribed, take new antibiotic as prescribed. Clinical Impressions Clinical Impression: Cystitis Instructions Patient Instructions: DI for Urinary Tract Infection (UTI) Print Language Print Language: Faroese Discharge ED Provider: Denisse Kincaid General Adult HPI <KEYLA Garcia - Last Filed: 09/22/24 18:49> General Chief complaint: Urogenital-Female Stated complaint: UTI Time Seen by Provider: 09/22/24 17:28 Mode of Arrival: EMS Source of Information: Patient and EMS Limitations: Physical Limitations Description of Symptoms (Recalled from ER Triage Doc. by RN): Pt. presents to the ED with complaints of dysuria, frequent urination, and dark colored urine for 3-4 days. She states she has also been feeling weak, has had no appetite, and just overall not feeling well. She was told by her physican to come to the ED. History of Present Illness HPI narrative: 58-year-old female presents to the emergency department via EMS for a 3 to 4-day history of generalized weakness, dysuria, urination, dark-colored urine, no appetite, did have 1 episode of nausea and vomiting on Friday. Patient admits to subjective chills but denies any fever, denies chest pain, denies shortness of breath, does have history of COPD, on 4 to 5 L submental nasal cannula at home daily, denies any abdominal pain, denies any diarrhea, admits to chronic constipation, denies hematochezia, hematuria, melena or hematemesis, denies any vaginal type symptomatology. 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 Onset (ago): day(s) Related Data Home Medications ?Medication ?Instructions ?Recorded ?Confirmed furosemide 40 mg tablet 40 mg PO DAILY 06/10/23 07/29/24 lisinopril 10 mg tablet 10 mg PO DAILY 06/11/23 07/29/24 albuterol sulfate 90 mcg/actuation 2 puff inhalation Q4HP PRN 08/05/23 07/29/24 aerosol inhaler Shortness Of Breath budesonide-formoterol HFA 160 2 puff inhalation Q12H 08/05/23 07/29/24 mcg-4.5 mcg/actuation aerosol inhaler (Symbicort) sennosides 8.6 mg tablet 17.2 mg PO HS 11/19/23 07/29/24 cholecalciferol (vitamin D3) 1,250 1,250 mcg PO WEEKLY 07/02/24 07/29/24 mcg (50,000 unit) capsule lidocaine 5 % topical patch 1 patch topical DAILY 07/02/24 07/29/24 mirtazapine 15 mg tablet 15 mg PO HS 07/02/24 07/29/24 semaglutide 1 mg/dose (4 mg/3 mL) 1 mg SQ WEEKLY 07/02/24 07/29/24 subcutaneous pen injector blood sugar diagnostic (True #10 ea 07/29/24 07/29/24 Metrix Glucose Test Strip) insulin glargine 100 unit/mL 15 unit SQ HS 07/29/24 07/29/24 subcutaneous solution (Lantus U-100 Insulin) melatonin 10 mg tablet 30 mg PO HS 08/09/24 Previous Rx's ?Medication ?Instructions ?Recorded ropinirole 0.25 mg tablet 0.25 mg PO HS #90 tabs 09/16/23 magnesium oxide 400 mg (241.3 mg 400 mg PO BID deficiency 90 days 01/01/24 magnesium) tablet #180 tabs aspirin 81 mg tablet,delayed 81 mg PO DAILY #1 tab 01/05/24 release (Enteric Coated Aspirin) carvedilol 3.125 mg tablet 3.125 mg PO BIDWMEAL #180 tabs 04/28/24 famotidine 20 mg tablet 20 mg PO DAILY #90 tabs 04/28/24 duloxetine 60 mg capsule,delayed 120 mg (2 x 60 mg) PO DAILY 30 07/29/24 release days #60 caps gabapentin 600 mg tablet 600 mg PO TID #90 tabs 07/29/24 insulin NPH-regular 70-30 U-100 35 unit (0.35 mL) SQ AM #15 mL 07/29/24 insulin 100 unit/mL subcutaneous pen (Novolin 70-30 FlexPen U-100 Insulin) levothyroxine 125 mcg capsule 125 mcg PO DAILY #30 caps 07/29/24 meloxicam 15 mg tablet 15 mg PO DAILY #30 tabs 07/29/24 nystatin 100,000 unit/gram topical 1 applic topical BID #15 grams 07/29/24 cream buspirone 30 mg tablet See Rx Instructions .Route 08/25/24 .COMPLEX #60 tabs clonazepam 0.5 mg tablet 0.5 mg PO TID #75 tabs 08/30/24 hydrocodone 7.5 mg-acetaminophen 1 tab PO Q6H PRN pain #120 tabs 08/30/24 325 mg tablet rivaroxaban 2.5 mg tablet (Xarelto) 2.5 mg PO BID DVT prophylaxis 90 09/01/24 days #180 tabs atorvastatin 80 mg tablet 80 mg PO HS #90 tabs 09/03/24 quetiapine 100 mg tablet See Rx Instructions .Route 09/14/24 .COMPLEX #30 tabs cefdinir 300 mg capsule 300 mg PO BID 7 days #14 caps 09/22/24 Allergies Allergy/AdvReac Type Severity Reaction Status Date / Time protamine Allergy Verified 07/29/24 15:33 [facility] <KEYLA Garcia - Last Filed: 09/22/24 18:49> [facility] Disclaimer: The information contained in this section may have been updated after the patient was seen, as this information can be updated by other users. Medical History Anxiety Hyperlipidemia Hypertensive heart disease without heart failure Acute cystitis Diabetes COPD (chronic obstructive pulmonary disease) Hyperlipidemia Hypertension Sacral pressure ulcer UTI due to extended-spectrum beta lactamase (ESBL) producing Escherichia coli Right sided weakness Depression Obesity Right flaccid hemiplegia Urinary tract infection due to Proteus Urinary tract infection due to Klebsiella species Diastolic dysfunction PAD (peripheral artery disease) CVA (cerebral vascular accident) CAD (coronary artery disease) Hypotension Pre-op evaluation Nasal fracture Right femoral fracture Dehydration Anxiety and depression Acute bronchitis Ulcer of right foot due to type 2 diabetes mellitus Onychocryptosis Onychomycosis Encounter for wound care Pyelonephritis Sepsis Fall Tibial plateau fracture, right MRSA (methicillin resistant staph aureus) culture positive Foot abscess, right Diabetic foot infection Blister of foot 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) Obesity Syncope Abnormal nuclear stress test Diastolic dysfunction HTN (hypertension) CAD (coronary artery disease) SOB (shortness of breath) Angina pectoris CHF (congestive heart failure) Diabetic ulcer of right heel associated with diabetes mellitus due to underlying condition, limited to breakdown of skin Ulcer of right foot due to type 2 diabetes mellitus Left-sided weakness BKA stump complication Respiratory failure COVID-19 Gangrene of left foot Cellulitis of right foot Encounter for wound care Neuropathy Ulcer of left foot due to type 2 diabetes mellitus Cellulitis of left foot Amputation of one or more toes Infected wound Diabetic Foot Ulcer Abnormal ankle brachial index (NICOLAS) Recent cerebrovascular accident (CVA) History of CVA (cerebrovascular accident) 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 Decreased pedal pulses Edema of left lower extremity Diabetic foot Onychodystrophy Onychomycosis PVD (peripheral vascular disease) Keratosis Contusion of ribs Claudication Left leg swelling Pre-ulcerative calluses Pain due to onychomycosis of toenail Onychogryphosis Microalbuminuric diabetic nephropathy Hypothyroidism Varicose veins of both lower extremities COPD with exacerbation Smoker Low back pain Hypoxia Wheezing Diabetic neuropathy, type II diabetes mellitus Vitamin D deficiency Peripheral arterial occlusive disease Diabetes mellitus Coronary arteriosclerosis Dyspnea Surgical History History of hip surgery History of left below knee amputation S/P BKA (below knee amputation) unilateral Status post foot surgery History of amputation of left great toe Family History Other Breast cancer Diabetes Heart attack Heart disease Hypothyroid Renal disease Stroke Social History Smoking Status: Never smoker second hand exposure: Yes alcohol intake: never substance use type: denies use current occupational status: disabled Travel in the last 8 weeks: None household members: none housing: halfway current occupational exposures/hazards: No caffeine: No Other Medical History Have you received the Flu Vaccine for this season: No Have you received the Pneumonia Vaccine: No <KEYLA Garcia - Last Filed: 09/22/24 18:49> ROS Obtained: Yes All systems reviewed & no additional complaints except as documented Physical Exam <KEYLA Garcia - Last Filed: 09/22/24 18:49> General General appearance: alert and in no apparent distress Head Head exam: atraumatic and normocephalic Eye Eye exam: Present PERRL and EOMI ENT ENT exam: Present mucous membranes moist Neck Neck exam: Present normal inspection Chest Chest inspection: Present normal inspection and symmetric chest wall rise Respiratory Respiratory exam: Present normal lung sounds bilaterally; Absent respiratory distress, wheezes or stridor Cardiovascular Cardiovascular exam: Present regular rate and normal rhythm Abdominal Exam Abdominal exam: Present soft; Absent tenderness, guarding, rebound or rigidity Extremities Exam Extremities exam: Present normal inspection Neurological Exam Neurological exam: Present alert and oriented X3 Psychiatric Psychiatric exam: Present normal affect Skin Skin exam: Present warm and dry Medical Decision Making <KEYLA Garcia - Last Filed: 09/22/24 18:49> Medical Records Medical records reviewed: Yes I reviewed the patient's medical records. Screening: Per USPSTF and CDC recommendations, given the prevalence of disease in our region, it is our hospital?s policy to screen for HIV and viral Hepatitis for all patients aged 18 and over and those with ongoing risk factors. Edgar Inquiry Pt receiving controlled substance: No Edgar was queried for this patient: No Vital Signs: 09/22/24 17:25 09/22/24 17:31 09/22/24 18:01 Temperature 98.4 F Temperature Source Oral Pulse Rate 81 86 Pulse Rate [Right Brachial] 86 Respiratory Rate 18 Blood Pressure 130/79 155/80 H Blood Pressure [Right Arm] 143/75 H Blood Pressure Mean 96 96 Blood Pressure Mean [Right Arm] 97 Blood Pressure Source Blood Pressure Source [Right Arm] Automatic Cuff Blood Pressure Position Blood Pressure Position [Right Arm] Sitting 02 Sat by Pulse Oximetry 95 97 96 Oxygen Delivery Method Nasal Cannula Oxygen Flow Rate (LPM) 3 09/22/24 18:31 09/22/24 19:00 09/22/24 19:21 Temperature 97.9 F Temperature Source Oral Pulse Rate 91 H 90 88 Pulse Rate [Right Brachial] Respiratory Rate 18 Blood Pressure 160/78 H 157/80 H 157/80 H Blood Pressure [Right Arm] Blood Pressure Mean 87 96 Blood Pressure Mean [Right Arm] Blood Pressure Source Automatic Cuff Blood Pressure Source [Right Arm] Blood Pressure Position Supine Blood Pressure Position [Right Arm] 02 Sat by Pulse Oximetry 98 92 L Oxygen Delivery Method Room Air Oxygen Flow Rate (LPM) Lab Data Lab results reviewed: Yes I reviewed the patient's lab results. Lab Results 09/22/24 17:20: Urine Color Yellow, Urine Appearance Clear, Urine pH 6.0, Ur Specific [place] 1.015, Urine Protein Negative, Urine Glucose (UA) 2+, Urine Ketones Negative, Urine Blood Negative, Urine Nitrate Negative, Urine Bilirubin Negative, Urine Urobilinogen 0.2, Ur Leukocyte Esterase 2+ A, Urine RBC 20-50, Urine WBC Tntc, Ur Squamous Epith Cells 20-50, Urine Bacteria 4+ 09/22/24 17:30: WBC 8.6, RBC 3.66 L, Hgb 11.9 L, Hct 35.7 L, MCV 97.6, MCH 32.4 H, MCHC 33.2, RDW 14.7, Plt Count 275, MPV 9.0, Neut % (Auto) 57.6, Lymph % (Auto) 30.8, Toole % (Auto) 5.0, Eos % (Auto) 5.4, Baso % (Auto) 1.2, Neut # (Auto) 4.9, Lymph # (Auto) 2.6, [place]ole # (Auto) 0.4, Eos # (Auto) 0.5 H, Baso # (Auto) 0.1, Sodium 137, Potassium 4.7, Chloride 95 L, Carbon Dioxide 35 H, Anion Gap 11.7, BUN 31 H, Creatinine 0.70, Estimated Creat Clear 156, Estimated GFR 86, Est GFR ( Amer) 104, Glucose 329 H, Calcium 8.6, Magnesium 1.7, Total Bilirubin 0.6, AST 36, ALT 20, Alkaline Phosphatase 95, Total Protein 7.0, Albumin 3.7, Globulin 3.3 H, Albumin/Globulin Ratio 1.1, Lipase 69 09/22/24 17:30 09/22/24 17:30 Orders (Tests/Meds): ED MEDICATIONS Discontinued Medications Generic Name Dose Route Start Last Admin Trade Name Freq PRN Reason Stop Dose Admin Ceftriaxone Sodium 1 gm/ 50 mls @ 100 mls/hr 09/22/24 18:28 09/22/24 18:39 Sodium Chloride IV 09/22/24 18:57 100 mls/hr ONCE ONE Administration ORDERS Category Date Time Status XR chest portable Stat Exams 09/22/24 17:39 Completed Complete Blood Count Auto Diff Stat Lab 09/22/24 17:30 Completed Comprehensive Metabolic Panel Stat Lab 09/22/24 17:30 Completed Lipase Stat Lab 09/22/24 17:30 Completed Magnesium Stat Lab 09/22/24 17:30 Completed Urinalysis and Microscopic Stat Lab 09/22/24 17:20 Completed Urine Culture Stat Micro 09/22/24 17:20 Received Medical Decision Narrative: 58-year-old female presents to the emergency department for generalized weakness, nausea vomiting, poor appetite, urinary type symptomatology for 3 to 4 days, differential diagnose include but not limited to cardiac arrhythmia, electrolyte disturbance, acute UTI, acute pyelonephritis, pneumonia, acute kidney injury. I discussed patient case with attending physician Dr. Kincaid Will obtain basic laboratory studies, urinalysis, lipase, chest x-ray Laboratory studies notable for chronic anemia, CBC, CMP notable for elevated BUN, at 31, hyperglycemia, otherwise unremarkable. Patient's urinalysis notable for 2+ leukocyte esterase, negative nitrites otherwise unremarkable. Urinalysis microscopic examination is notable for pyuria, and 4+ urine bacteria will treat with IV ceftriaxone. I reviewed the patient's chest x-ray along the corresponding radiologic report no dense parenchymal consolidation pleural effusion or pneumothorax. Discussed these results with the patient at the bedside, patient is in agreement with the current discharge plan/treatment plan, I will prescribe p.o. cefdinir to the patient's pharmacy to treat UTI, strict ED return precaution discussed with the patient, patient has remained hemodynamically stable, afebrile, labs show no leukocytosis, no acute kidney injury, patient's BUN appears chronically elevated, commend hydration, patient voiced understanding and agreement current treatment plan/discharge plan <Denisse Kincaid, DO - Last Filed: 09/22/24 19:42> Vital Signs: 09/22/24 17:25 09/22/24 17:31 09/22/24 18:01 Temperature 98.4 F Temperature Source Oral Pulse Rate 81 86 Pulse Rate [Right Brachial] 86 Respiratory Rate 18 Blood Pressure 130/79 155/80 H Blood Pressure [Right Arm] 143/75 H Blood Pressure Mean 96 96 Blood Pressure Mean [Right Arm] 97 Blood Pressure Source Blood Pressure Source [Right Arm] Automatic Cuff Blood Pressure Position Blood Pressure Position [Right Arm] Sitting 02 Sat by Pulse Oximetry 95 97 96 Oxygen Delivery Method Nasal Cannula Oxygen Flow Rate (LPM) 3 09/22/24 18:31 09/22/24 19:00 09/22/24 19:21 Temperature 97.9 F Temperature Source Oral Pulse Rate 91 H 90 88 Pulse Rate [Right Brachial] Respiratory Rate 18 Blood Pressure 160/78 H 157/80 H 157/80 H Blood Pressure [Right Arm] Blood Pressure Mean 87 96 Blood Pressure Mean [Right Arm] Blood Pressure Source Automatic Cuff Blood Pressure Source [Right Arm] Blood Pressure Position Supine Blood Pressure Position [Right Arm] 02 Sat by Pulse Oximetry 98 92 L Oxygen Delivery Method Room Air Oxygen Flow Rate (LPM) Lab Data Lab Results 09/22/24 17:20: Urine Color Yellow, Urine Appearance Clear, Urine pH 6.0, Ur Specific [place] 1.015, Urine Protein Negative, Urine Glucose (UA) 2+, Urine Ketones Negative, Urine Blood Negative, Urine Nitrate Negative, Urine Bilirubin Negative, Urine Urobilinogen 0.2, Ur Leukocyte Esterase 2+ A, Urine RBC 20-50, Urine WBC Tntc, Ur Squamous Epith Cells 20-50, Urine Bacteria 4+ 09/22/24 17:30: WBC 8.6, RBC 3.66 L, Hgb 11.9 L, Hct 35.7 L, MCV 97.6, MCH 32.4 H, MCHC 33.2, RDW 14.7, Plt Count 275, MPV 9.0, Neut % (Auto) 57.6, Lymph % (Auto) 30.8, [place] % (Auto) 5.0, Eos % (Auto) 5.4, Baso % (Auto) 1.2, Neut # (Auto) 4.9, Lymph # (Auto) 2.6, [place] # (Auto) 0.4, Eos # (Auto) 0.5 H, Baso # (Auto) 0.1, Sodium 137, Potassium 4.7, Chloride 95 L, Carbon Dioxide 35 H, Anion Gap 11.7, BUN 31 H, Creatinine 0.70, Estimated Creat Clear 156, Estimated GFR 86, Est GFR ( Amer) 104, Glucose 329 H, Calcium 8.6, Magnesium 1.7, Total Bilirubin 0.6, AST 36, ALT 20, Alkaline Phosphatase 95, Total Protein 7.0, Albumin 3.7, Globulin 3.3 H, Albumin/Globulin Ratio 1.1, Lipase 69 Orders (Tests/Meds): ED MEDICATIONS Discontinued Medications Generic Name Dose Route Start Last Admin Trade Name Freq PRN Reason Stop Dose Admin Ceftriaxone Sodium 1 gm/ 50 mls @ 100 mls/hr 09/22/24 18:28 09/22/24 18:39 Sodium Chloride IV 09/22/24 18:57 100 mls/hr ONCE ONE Administration ORDERS Category Date Time Status XR chest portable Stat Exams 09/22/24 17:39 Completed Complete Blood Count Auto Diff Stat Lab 09/22/24 17:30 Completed Comprehensive Metabolic Panel Stat Lab 09/22/24 17:30 Completed Lipase Stat Lab 09/22/24 17:30 Completed Magnesium Stat Lab 09/22/24 17:30 Completed Urinalysis and Microscopic Stat Lab 09/22/24 17:20 Completed Urine Culture Stat Micro 09/22/24 17:20 Received ECG Data Tracing #1: I reviewed this ECG and interpreted as documented below: Normal sinus rhythm with a ventricular rate of [address] changes concerning for ischemia. Normal intervals. ECG initial impression date: 09/22/24 ECG initial impression time: 17:47 Critical Care <KEYLA Garcia - Last Filed: 09/22/24 18:49> Critical Care Time Critical Care Time: No
[2024-09-22 17:46] LABS: Basophils # 0.1 K/mm3 (0-0.2); Basophils % 1.2 % (0.1-2.0); Eosinophils # 0.5 K/mm3 (0.0-0.4); Eosinophils % 5.4 % (0.1-12.0); Hematocrit 35.7 % (37.0-47.0); Hemoglobin 11.9 g/dL (12.2-16.2); Lymphocytes # 2.6 K/mm3 (0.7-4.5); Lymphocytes % 30.8 % (10-50); Mean Corpuscular HGB Conc 33.2 g/dL (31.8-35.4); Mean Corpuscular Hemoglobin 32.4 pg (27.0-31.2); Mean Corpuscular Volume 97.6 fl (81-99); Monocytes # 0.4 K/mm3 (0.1-1.0); Neutrophils # 4.9 K/mm3 (1.8-7.8); Neutrophils % 57.6 % (37.0-80.0); Platelet Count 275 K/mm3 (142-424); Red Blood Count 3.66 M/mm3 (4.20-5.40); Red Cell Distribution Width 14.7 % (11.5-17.5); White Blood Count 8.6 K/mm3 (4.8-10.8)
--- NOTE | 2024-09-22 17:46 | ECG_ITS ---
APPROVED REPORT Exam: Resting ECG HR:79 bpm ECG Measurements Heart Rate 79 AXES DC 175 P 26 QRSd 96 QRS -2 QT 407 T 95 QTc 441 Conclusion SINUS RHYTHM LOW QRS VOLTAGE IN PRECORDIAL LEADS [QRS DEFLECTION < 1.0 mV IN CHEST LEADS] NONSPECIFIC T-WAVE ABNORMALITY ABNORMAL ECG Electronically signed by : SOLOMON ENCINAS, 09/22/2024 23:25:09
[2024-09-22 17:48] LABS: Microscopic, Urine URINE MICROSCOPIC (MICROSCOPIC)
[2024-09-22 17:49] LABS: Appearance,Urine CLEAR (Clear); Bilirubin,Urine Negative (Negative); Blood, Urine Negative (Negative); Color,Urine YELLOW (Yellow); Glucose,Urine (UA) 2+ (Negative); Ketones,Urine Negative (Negative); Leukocyte Esterase,Urine 2+ (Negative); Nitrate,Urine Negative (Negative); Protein,Urine Negative (Negative); Specific Gravity, Urine 1.015 (1.005-1.030); Urobilinogen,Urine 0.2 EU/dl (0.2)
[2024-09-22 17:52] LABS: Albumin Level 3.7 g/dl (3.5-5.0); Chloride 95 mmol/L (98-107); Potassium 4.7 mmoL/L (3.5-5.1); Sodium 137 mmol/L (136-145)
[2024-09-22 17:54] LABS: Lipase 69 U/L (23-300)
[2024-09-22 17:55] LABS: Alanine Aminotransferase 20 U/L (12-78); Albumin/Globulin Ratio 1.1 (1.1-1.8); Alkaline Phosphatase 95 U/L (38-126); Anion Gap 11.7 mEq/L (5-15); Aspartate Amino Transferase 36 U/L (14-36); Bilirubin,Total 0.6 mg/dl (0.2-1.3); Blood Urea Nitrogen 31 mg/dl (7-17); Carbon Dioxide 35 mmol/L (22.0-30.0); Creatinine Clearance Estimated 156 mL/min (50-200); Estimated Glomerular Filt Rate 86 ml/min (>60); GFR (African American) 104 ML/MIN (>60); Globulin 3.3 g/dL (1.3-3.2); Magnesium 1.7 mg/dl (1.6-2.3)
[2024-09-22 17:56] LABS: Calcium 8.6 mg/dl (8.4-10.2); Glucose 329 mg/dl (74-100)
[2024-09-22 18:01] VITALS: BP 155/80; PULSE 86; O2SAT 96
--- NOTE | 2024-09-22 18:06 | PC.NURSE ---
PTS CAREGIVER CARROLL TIFFANI CALLED TO CHECK ON PT, , CALL WITH UPDATE
[2024-09-22 18:13] LABS: Bacteria,Urine 4+ /lpf; RBC,Urine 20-50 #/hpf (0-3); Squamous Epithelial Cell,Urine 20-50 #/hpf (0-5); WBC,Urine TNTC #/hpf (0-3)
[2024-09-22 18:31] VITALS: BP 160/78; PULSE 91; O2SAT 98
--- NOTE | 2024-09-22 18:35 | PC.NURSE ---
Ronnie RAMIRES reports we do not need to get blood cultures.
[2024-09-22] MEDS: CEFTRIAXONE SODIUM 1 GM in 0.9 % SODIUM CHLORIDE 50 ML IV (18:39)
[2024-09-22 19:00] VITALS: BP 157/80; PULSE 90; O2SAT 92
--- NOTE | 2024-09-22 19:00 | PC.NURSE ---
EMS notified of need to transport back to [facility]
--- NOTE | 2024-09-22 19:15 | PC.NURSE ---
Call placed to caregiver regarding d/c of pt.
[2024-09-22 19:21] VITALS: BP 157/80; PULSE 88; RESP 18; TEMP 36.6; O2SAT 98
--- NOTE | 2024-09-22 19:27 | PC.NURSE ---
Patient waiting on EMS to take her home
--- NOTE | 2024-09-24 08:40 | PC.NURSE ---
discussed final urine culture results with , pt dc with cefdinir, ntd
== END 2024-09-22 19:27 | disposition home or self-care (01) ==
PROVIDERS: Physician Assistant; Emergency Provider Emergency Medicine; PCP Internal Medicine
DX: N30.90 Cystitis, unspecified without hematuria (principal); R30.0 Dysuria; R35.0 Frequency of micturition; R53.1 Weakness; R63.8 Other symptoms and signs concerning food and fluid intake
CPT/HCPCS: 71045; 80053; 81001; 83690; 83735; 85025; 87086; 87088; 87186; 93005; 96365; 99284; J0696

== ENCOUNTER 2025-01-07 20:58 | Emergency (ER) | payer MEDICARE, MEDICAID, SELFPAY ==
[2025-01-07 20:58] VITALS: BP 145/73; PULSE 77; RESP 22; TEMP 37.2; O2SAT 94; BMI 36.9
--- NOTE | 2025-01-07 21:06 | ED_ITS ---
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 See Rx Instructions .Route Qty: 1 0RF Rx Instructions: As directed (DME) Dexcom G7 Sensor Device See Rx Instructions .Route Qty: 1 4RF Rx Instructions: As directed ipratropium-albuterol 0.5 mg-3 mg(2.5 mg base)/3 mL solution for nebulization 3 ml inhalation Q4-6H PRN (Reason: shortness of breath or wheezing) Qty: 180 0RF ondansetron 4 mg tablet,disintegrating 4 mg PO Q8H PRN (Reason: nausea and vomiting) Qty: 30 0RF (DME) True Metrix Glucose Test Strip Strip See Rx Instructions .ROUTE .MEDSUPPLY Qty: 10 Rx Instructions: As directed duloxetine 60 mg capsule,delayed release(DR/EC) 120 mg PO DAILY 30 Days Qty: 60 2RF insulin glargine [Lantus U-100 Insulin] 100 unit/mL solution 15 unit SQ HS Novolin 70-30 FlexPen U-100 100 unit/mL (70-30) insulin pen 35 unit SQ AM Qty: 15 3RF meloxicam 15 mg tablet 15 mg PO DAILY Qty: 30 2RF magnesium oxide 400 mg (241.3 mg magnesium) tablet 400 mg PO BID 90 Days Qty: 180 0RF aspirin [Enteric Coated Aspirin] 81 mg tablet,delayed release (DR/EC) 81 mg PO DAILY Qty: 1 0RF carvedilol 3.125 mg tablet 3.125 mg PO BIDWMEAL Qty: 180 2RF famotidine 20 mg tablet 20 mg PO DAILY Qty: 90 3RF melatonin 10 mg tablet 30 mg PO HS buspirone 30 mg tablet See Rx Instructions .ROUTE .COMPLEX Qty: 60 2RF Dose Instruction: TAKE ONE TABLET BY MOUTH TWICE A DAY Rx Instructions: TAKE ONE TABLET BY MOUTH TWICE A DAY levothyroxine 125 mcg capsule 125 mcg PO DAILY Qty: 90 3RF nystatin 100,000 unit/gram cream 1 applic topical BID Qty: 15 1RF Rx Instructions: apply to rashunder left breast. cholecalciferol (vitamin D3) 1,250 mcg (50,000 unit) capsule 1,250 mcg PO WEEKLY Qty: 8 0RF atorvastatin 80 mg tablet See Rx Instructions .ROUTE .COMPLEX Qty: 90 0RF Dose Instruction: TAKE 1 TABLET BY MOUTH AT BEDTIME NIGHTLY Rx Instructions: TAKE 1 TABLET BY MOUTH AT BEDTIME NIGHTLY albuterol sulfate 90 mcg/actuation HFA aerosol inhaler 2 puff INHALATION Q4HP PRN (Reason: Shortness Of Breath) Qty: 8.5 0RF furosemide 40 mg tablet 40 mg PO DAILY Qty: 30 0RF mirtazapine 15 mg tablet See Rx Instructions .ROUTE .COMPLEX Qty: 90 0RF Dose Instruction: TAKE 1 TABLET BY MOUTH EVERY NIGHT AT BEDTIME Rx Instructions: TAKE 1 TABLET BY MOUTH EVERY NIGHT AT BEDTIME Xarelto 2.5 mg tablet See Rx Instructions .ROUTE .COMPLEX Qty: 180 0RF Dose Instruction: TAKE 1 TABLET BY MOUTH TWICE A DAY FOR DVT PROPHYLAXIS FOR 90 DAYS Rx Instructions: TAKE 1 TABLET BY MOUTH TWICE A DAY FOR DVT PROPHYLAXIS FOR 90 DAYS quetiapine 100 mg tablet 200 mg PO HS PRN (Reason: insomnia) 30 Days Qty: 30 2RF hydrocodone-acetaminophen 7.5-325 mg tablet 1 tab PO Q6H PRN (Reason: pain) Qty: 120 0RF gabapentin 600 mg tablet 600 mg PO TID Qty: 90 0RF clonazepam 0.5 mg tablet 0.5 mg PO BID Qty: 60 1RF lisinopril 10 mg Tablet 10 mg PO DAILY budesonide-formoterol [Symbicort] 160-4.5 mcg/actuation HFA aerosol inhaler 2 puff inhalation Q12H sennosides 8.6 mg tablet 17.2 mg PO HS lidocaine 5 % adhesive patch,medicated 1 patch topical DAILY Rx Instructions: APPLY 1 PATCH ON MOST PAINFUL AREA FOR UP TO 12 HOURS DAILY semaglutide 1 mg/dose (4 mg/3 mL) pen injector 1 mg SQ WEEKLY Clinical Impressions Clinical Impression: Acute buttock pain, Nausea Instructions Patient Instructions: DI for Laceration Repair Print Language Print Language: Angolan Discharge ED Provider: Lyndon Hawkins General Adult HPI <Mayi Gardner, CRIMINAL RESEARCHER - Last Filed: 01/07/25 21:41> General Chief complaint: Wound/Laceration Stated complaint: bed sores Time Seen by Provider: 01/07/25 21:05 History of Present Illness HPI narrative: patient is a 59-year-old female PMHx morbid obesity, HTN, HLD, chronic respiratory failure, oxygen requirement, tobacco dependence, COPD, left below the knee amputation who presents to the ED for nausea and pain from bedsores. Related Data Home Medications ?Medication ?Instructions ?Recorded ?Confirmed lisinopril 10 mg tablet 10 mg PO DAILY 06/11/23 12/02/24 budesonide-formoterol HFA 160 2 puff inhalation Q12H 08/05/23 12/02/24 mcg-4.5 mcg/actuation aerosol inhaler (Symbicort) sennosides 8.6 mg tablet 17.2 mg PO HS 11/19/23 12/02/24 lidocaine 5 % topical patch 1 patch topical DAILY 07/02/24 12/02/24 semaglutide 1 mg/dose (4 mg/3 mL) 1 mg SQ WEEKLY 07/02/24 12/02/24 subcutaneous pen injector blood sugar diagnostic (True #10 ea 07/29/24 12/02/24 Metrix Glucose Test Strip) insulin glargine 100 unit/mL 15 unit SQ HS 07/29/24 12/02/24 subcutaneous solution (Lantus U-100 Insulin) melatonin 10 mg tablet 30 mg PO HS 08/09/24 12/02/24 Previous Rx's ?Medication ?Instructions ?Recorded magnesium oxide 400 mg (241.3 mg 400 mg PO BID deficiency 90 days 01/01/24 magnesium) tablet #180 tabs aspirin 81 mg tablet,delayed 81 mg PO DAILY #1 tab 01/05/24 release (Enteric Coated Aspirin) carvedilol 3.125 mg tablet 3.125 mg PO BIDWMEAL #180 tabs 04/28/24 famotidine 20 mg tablet 20 mg PO DAILY #90 tabs 04/28/24 duloxetine 60 mg capsule,delayed 120 mg (2 x 60 mg) PO DAILY 30 07/29/24 release days #60 caps insulin NPH-regular 70-30 U-100 35 unit (0.35 mL) SQ AM #15 mL 07/29/24 insulin 100 unit/mL subcutaneous pen (Novolin 70-30 FlexPen U-100 Insulin) meloxicam 15 mg tablet 15 mg PO DAILY #30 tabs 07/29/24 buspirone 30 mg tablet See Rx Instructions .Route 08/25/24 .COMPLEX #60 tabs levothyroxine 125 mcg capsule 125 mcg PO DAILY #90 caps 10/26/24 nystatin 100,000 unit/gram topical 1 applic topical BID #15 grams 10/28/24 cream cholecalciferol (vitamin D3) 1,250 1,250 mcg PO WEEKLY #8 caps 11/01/24 mcg (50,000 unit) capsule atorvastatin 80 mg tablet See Rx Instructions .Route 12/02/24 .COMPLEX #90 tabs cefdinir 300 mg capsule 300 mg PO BID 14 days #28 caps 12/02/24 amlodipine 5 mg tablet 5 mg PO DAILY #30 tabs 12/06/24 blood-glucose meter,continuous #1 ea 12/06/24 (Dexcom G7 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 [employer]s Operator) blood-glucose sensor (Dexcom G7 #1 ea 12/06/24 Sensor device) ipratropium 0.5 mg-albuterol 3 mg 3 ml inhalation Q4-6H PRN 12/06/24 (2.5 mg base)/3 mL nebulization shortness of breath or wheezing soln #180 mL ondansetron 4 mg disintegrating 4 mg PO Q8H PRN nausea and 12/06/24 tablet vomiting #30 tabs albuterol sulfate 90 mcg/actuation 2 puff inhalation Q4HP PRN 12/17/24 aerosol inhaler Shortness Of Breath #8.5 grams furosemide 40 mg tablet 40 mg PO DAILY #30 tabs 12/17/24 mirtazapine 15 mg tablet See Rx Instructions .Route 12/20/24 .COMPLEX #90 tabs rivaroxaban 2.5 mg tablet (Xarelto) See Rx Instructions .Route 12/20/24 .COMPLEX #180 tabs clonazepam 0.5 mg tablet 0.5 mg PO BID #60 tabs 01/03/25 gabapentin 600 mg tablet 600 mg PO TID #90 tabs 01/03/25 hydrocodone 7.5 mg-acetaminophen 1 tab PO Q6H PRN pain #120 tabs 01/03/25 325 mg tablet quetiapine 100 mg tablet 200 mg (2 x 100 mg) PO HS PRN 01/03/25 insomnia 30 days #30 tabs ondansetron 4 mg disintegrating 4 mg PO Q6H PRN nausea and 01/07/25 tablet vomiting #10 tabs Allergies Allergy/AdvReac Type Severity Reaction Status Date / Time protamine Allergy Verified 12/02/24 14:00 [facility] <Mayi Gardner APRN - Last Filed: 01/07/25 21:41> [facility] Disclaimer: The information contained in this section may have been updated after the patient was seen, as this information can be updated by other users. Medical History (Updated 01/07/25 @ 22:49 by Lyndon Hawkins MD) BKA stump complication Onychogryphosis Diabetic neuropathy, type II diabetes mellitus Anxiety Hyperlipidemia Hypertensive heart disease without heart failure Acute cystitis Diabetes COPD (chronic obstructive pulmonary disease) Hyperlipidemia Hypertension Sacral pressure ulcer UTI due to extended-spectrum beta lactamase (ESBL) producing Escherichia coli Right sided weakness Depression Obesity Right flaccid hemiplegia Urinary tract infection due to Proteus Urinary tract infection due to Klebsiella species Diastolic dysfunction PAD (peripheral artery disease) CVA (cerebral vascular accident) CAD (coronary artery disease) Hypotension Pre-op evaluation Nasal fracture Right femoral fracture Dehydration Anxiety and depression Acute bronchitis Ulcer of right foot due to type 2 diabetes mellitus Onychocryptosis Onychomycosis Encounter for wound care Pyelonephritis Sepsis Fall Tibial plateau fracture, right MRSA (methicillin resistant staph aureus) culture positive Foot abscess, right Diabetic foot infection Blister of foot 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) Obesity Syncope Abnormal nuclear stress test Diastolic dysfunction HTN (hypertension) CAD (coronary artery disease) SOB (shortness of breath) Angina pectoris CHF (congestive heart failure) Diabetic ulcer of right heel associated with diabetes mellitus due to underlying condition, limited to breakdown of skin Ulcer of right foot due to type 2 diabetes mellitus Left-sided weakness Respiratory failure COVID-19 Gangrene of left foot Cellulitis of right foot Encounter for wound care Neuropathy Ulcer of left foot due to type 2 diabetes mellitus Cellulitis of left foot Amputation of one or more toes Infected wound Diabetic Foot Ulcer Abnormal ankle brachial index (NICOLAS) Recent cerebrovascular accident (CVA) History of CVA (cerebrovascular accident) 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 Decreased pedal pulses Edema of left lower extremity Diabetic foot Onychodystrophy Onychomycosis PVD (peripheral vascular disease) Keratosis Contusion of ribs Claudication Left leg swelling Pre-ulcerative calluses Pain due to onychomycosis of toenail Microalbuminuric diabetic nephropathy Hypothyroidism Varicose veins of both lower extremities COPD with exacerbation Smoker Low back pain Hypoxia Wheezing Vitamin D deficiency Peripheral arterial occlusive disease Diabetes mellitus Coronary arteriosclerosis Dyspnea Surgical History History of hip surgery History of left below knee amputation S/P BKA (below knee amputation) unilateral Status post foot surgery History of amputation of left great toe Family History Other Breast cancer Diabetes Heart attack Heart disease Hypothyroid Renal disease Stroke Social History Smoking Status: Never smoker second hand exposure: Yes alcohol intake: never substance use type: denies use current occupational status: disabled Travel in the last 8 weeks: None household members: none housing: detention current occupational exposures/hazards: No caffeine: No Have you lived/traveled outside [place] in past 30 days?: No Contact w/someone who lives/traveled outside US past 30 days?: No Exposure to someone with infectious disease in past 14 days?: No Do you have a fever (greater than 100.4 F or 38 C)?: No Have you tested positive for COVID-19: No Exposed to someone with COVID-19 in past 14 days?: No Do you have a sore throat?: No Do you have a cough?: No Do you have any weakness?: Yes Do you have any diarrhea?: No Are you experiencing any unusual bleeding?: No Do you have any muscle aches/pain?: No Do you have any abdominal pain?: No Are you experiencing loss of taste or smell?: No Other Medical History Have you received the Flu Vaccine for this season: No Have you received the Pneumonia Vaccine: No <Mayi Gardner APRN - Last Filed: 01/07/25 21:41> ROS Obtained: Yes Systems reviewed as appropriate & no additional complaints except as documented Physical Exam <Mayi Gardner APRN - Last Filed: 01/07/25 21:41> General General appearance: alert Comment: Obesity Head Head exam: atraumatic and normocephalic Eye Eye exam: Present normal appearance and PERRL ENT ENT exam: Present normal exam Neck Neck exam: Present normal inspection Chest Chest inspection: Present normal inspection and symmetric chest wall rise; Absent tenderness Respiratory Respiratory exam: Present normal lung sounds bilaterally; Absent respiratory distress Cardiovascular Cardiovascular exam: Present regular rate Abdominal Exam Abdominal exam: Present soft and normal bowel sounds; Absent tenderness Extremities Exam Extremities exam: Present full ROM and other (Left below the knee amputation) Back Exam Back exam: Present other (Multiple bedsores on bilateral buttocks area, surrounding erythema) Neurological Exam Neurological exam: Present alert and oriented X3 Psychiatric Psychiatric exam: Present normal affect and normal mood Skin Skin exam: Present warm Medical Decision Making <Mayi Gardner APRN - Last Filed: 01/07/25 21:41> Medical Records Screening: Per USPSTF and CDC recommendations, given the prevalence of disease in our region, it is our hospital?s policy to screen for HIV and viral Hepatitis for all patients aged 18 and over and those with ongoing risk factors. Edgar Inquiry Pt receiving controlled substance: No Edgar was queried for this patient: No Vital Signs: 01/07/25 20:58 Temperature 98.9 F Temperature Source Oral Pulse Rate [Apical] 77 Respiratory Rate 22 Blood Pressure [Left Arm] 145/73 H Blood Pressure Mean [Left Arm] 97 02 Sat by Pulse Oximetry 94 L Oxygen Delivery Method Room Air Lab Data Lab Results 01/07/25 21:31: WBC 10.1, RBC 3.52 L, Hgb 10.9 L, Hct 33.3 L, MCV 94.6, MCH 31.0, MCHC 32.7, RDW 14.0, Plt Count 316, MPV 11.4 H, Neut % (Auto) 62.5, Lymph % (Auto) 21.7, Hyde % (Auto) 8.4, Eos % (Auto) 6.4, Baso % (Auto) 0.6, Neut # (Auto) 6.3, Lymph # (Auto) 2.2, Hyde # (Auto) 0.9, Eos # (Auto) 0.7 H, Baso # (Auto) 0.1, Sodium 136, Potassium 4.5, Chloride 94 L, Carbon Dioxide 32 H, Anion Gap 14.5, BUN 31 H, Creatinine 0.80, Estimated Creat Clear 136, Estimated GFR 73, Est GFR ( Amer) 89, Glucose 251 H, Lactate 1.7, Calcium 9.0, Total Bilirubin 0.5, AST 38 H, ALT 19, Alkaline Phosphatase 123, Total Protein 7.5, Albumin 3.9, Globulin 3.6 H, Albumin/Globulin Ratio 1.1 01/07/25 21:31 01/07/25 21:31 Orders (Tests/Meds): ORDERS Category Date Time Status CBC w/Auto Diff [Complete Blood Count Auto Diff] Stat Lab 01/07/25 21:31 Completed CMP [Comprehensive Metabolic Panel] Stat Lab 01/07/25 21:31 Results Lactic Acid Stat Lab 01/07/25 21:31 Completed Procalcitonin Stat Lab 01/07/25 21:31 Results Urinalysis and Microscopic Stat Lab 01/07/25 20:59 Ordered Medical Decision Narrative: In summary, patient is a 59-year-old female PMHx morbid obesity, HTN, HLD, chronic respiratory failure, oxygen requirement, tobacco dependence, COPD, left below the knee amputation, chronic bedsores who presents to the ED for nausea and pain from bedsores. Patient states that she has not been evaluated by wound clinic in approximately 5 months however does have home health nurse who dresses her wounds. Last wound dressing was tonight at 1900. Upon initial exam, patient is alert, oriented and cooperative. Patient is hemodynamically stable. Physical exam remarkable for morbid obesity, left below the knee amputation, multiple bedsores on buttocks area, large area of erythema, no drainage noted. Denies fever, chills, body aches, headache, visual disturbance, chest pain, shortness of breath, abdominal pain, vomiting, diarrhea, dysuria. Differential diagnosis includes sepsis, infectious process, abscess, cellulitis, chronic bedsores, nausea, viral syndrome, among others Care transferred to Dr. Hawkins, pending workup. <Lyndon Hawkins MD - Last Filed: 01/07/25 22:54> Vital Signs: 01/07/25 20:58 Temperature 98.9 F Temperature Source Oral Pulse Rate [Apical] 77 Respiratory Rate 22 Blood Pressure [Left Arm] 145/73 H Blood Pressure Mean [Left Arm] 97 02 Sat by Pulse Oximetry 94 L Oxygen Delivery Method Room Air Lab Data Lab Results 01/07/25 21:31: WBC 10.1, RBC 3.52 L, Hgb 10.9 L, Hct 33.3 L, MCV 94.6, MCH 31.0, MCHC 32.7, RDW 14.0, Plt Count 316, MPV 11.4 H, Neut % (Auto) 62.5, Lymph % (Auto) 21.7, Hyde % (Auto) 8.4, Eos % (Auto) 6.4, Baso % (Auto) 0.6, Neut # (Auto) 6.3, Lymph # (Auto) 2.2, Hyde # (Auto) 0.9, Eos # (Auto) 0.7 H, Baso # (Auto) 0.1, Sodium 136, Potassium 4.5, Chloride 94 L, Carbon Dioxide 32 H, Anion Gap 14.5, BUN 31 H, Creatinine 0.80, Estimated Creat Clear 136, Estimated GFR 73, Est GFR ( Amer) 89, Glucose 251 H, Lactate 1.7, Calcium 9.0, Total Bilirubin 0.5, AST 38 H, ALT 19, Alkaline Phosphatase 123, Total Protein 7.5, Albumin 3.9, Globulin 3.6 H, Albumin/Globulin Ratio 1.1 Orders (Tests/Meds): ORDERS Category Date Time Status CBC w/Auto Diff [Complete Blood Count Auto Diff] Stat Lab 01/07/25 21:31 Completed CMP [Comprehensive Metabolic Panel] Stat Lab 01/07/25 21:31 Results Lactic Acid Stat Lab 01/07/25 21:31 Completed Procalcitonin Stat Lab 01/07/25 21:31 Results Urinalysis and Microscopic Stat Lab 01/07/25 20:59 Ordered Medical Decision Narrative: In summary, patient is a 59-year-old female PMHx morbid obesity, HTN, HLD, chronic respiratory failure, oxygen requirement, tobacco dependence, COPD, left below the knee amputation, chronic bedsores who presents to the ED for nausea and pain from bedsores. Patient states that she has not been evaluated by wound clinic in approximately 5 months however does have home health nurse who dresses her wounds. Last wound dressing was tonight at 1900. Upon initial exam, patient is alert, oriented and cooperative. Patient is hemodynamically stable. Physical exam remarkable for morbid obesity, left below the knee amputation, multiple bedsores on buttocks area, large area of erythema, no drainage noted. Denies fever, chills, body aches, headache, visual disturbance, chest pain, shortness of breath, abdominal pain, vomiting, diarrhea, dysuria. Differential diagnosis includes sepsis, infectious process, abscess, cellulitis, chronic bedsores, nausea, viral syndrome, among others Care transferred to Dr. Hawkins, pending workup. Shruthi: I assumed primary responsibility for this patient after signout from previous physician. Chronically ill-appearing female no acute distress. Hemodynamically stable. On independent evaluation, she is in no acute distress. Independent interpretation of workup with nonactionable findings. Patient already has appropriate follow-up, outpatient care, no acute concerns, deemed appropriate for outpatient management. Because patient at baseline without signs or symptoms of clinical decompensation, deemed appropriate for discharge. Results were relayed to patient who voiced understanding and were agreeable to outpatient management and follow up. I discussed my clinical impression with patient and answered all questions. At this time, the evidence for any other entities in the differential is insufficient to warrant any further testing or ED observation. This was explained as well. Advisory was given that persistent or worsening symptoms require further evaluation. I confirmed the understanding of this discussion. Critical Care <Mayi Gardner APRN - Last Filed: 01/07/25 21:41> Critical Care Time Critical Care Time: No
[2025-01-07 21:40] LABS: Basophils # 0.1 K/mm3 (0-0.2); Basophils % 0.6 % (0.1-2.0); Eosinophils # 0.7 K/mm3 (0.0-0.4); Eosinophils % 6.4 % (0.1-12.0); Hematocrit 33.3 % (37.0-47.0); Hemoglobin 10.9 g/dL (12.2-16.2); Lymphocytes # 2.2 K/mm3 (0.7-4.5); Lymphocytes % 21.7 % (10-50); Mean Corpuscular HGB Conc 32.7 g/dL (31.8-35.4); Mean Corpuscular Volume 94.6 fl (81-99); Mean Platelet Volume 11.4 fl (7.4-10.4); Monocytes # 0.9 K/mm3 (0.1-1.0); Monocytes % 8.4 % (1.7-9.3); Neutrophils # 6.3 K/mm3 (1.8-7.8); Neutrophils % 62.5 % (37.0-80.0); Platelet Count 316 K/mm3 (142-424); Red Blood Count 3.52 M/mm3 (4.20-5.40); White Blood Count 10.1 K/mm3 (4.8-10.8)
[2025-01-07 21:51] LABS: Lactic Acid 1.7 mmol/L (0.7-2.1)
[2025-01-07 21:52] LABS: Albumin Level 3.9 g/dl (3.5-5.0); Chloride 94 mmol/L (98-107)
[2025-01-07 21:53] LABS: Potassium 4.5 mmoL/L (3.5-5.1); Sodium 136 mmol/L (136-145)
[2025-01-07 21:55] LABS: Alanine Aminotransferase 19 U/L (12-78); Anion Gap 14.5 mEq/L (5-15); Aspartate Amino Transferase 38 U/L (14-36); Blood Urea Nitrogen 31 mg/dl (7-17); Carbon Dioxide 32 mmol/L (22.0-30.0); Creatinine Clearance Estimated 136 mL/min (50-200); Estimated Glomerular Filt Rate 73 ml/min (>60); GFR (African American) 89 ML/MIN (>60)
[2025-01-07 21:56] LABS: Albumin/Globulin Ratio 1.1 (1.1-1.8); Alkaline Phosphatase 123 U/L (38-126); Bilirubin,Total 0.5 mg/dl (0.2-1.3); Globulin 3.6 g/dL (1.3-3.2); Glucose 251 mg/dl (74-100); Total Protein,Serum 7.5 g/dl (6.3-8.2)
[2025-01-07 22:41] LABS: Procalcitonin 0.099 ng/mL (0.0-2.0)
[2025-01-07 23:00] LABS: Microscopic, Urine URINE MICROSCOPIC (MICROSCOPIC)
[2025-01-07 23:02] LABS: Appearance,Urine CLOUDY (Clear); Bilirubin,Urine Negative (Negative); Blood, Urine TRACE-I (Negative); Color,Urine YELLOW (Yellow); Glucose,Urine (UA) 2+ (Negative); Ketones,Urine Negative (Negative); Leukocyte Esterase,Urine 2+ (Negative); Nitrate,Urine POSITIVE (Negative); PH,Urine 5.5 (5.0-8.5); Protein,Urine Negative (Negative); Specific Gravity, Urine >= 1.030 (1.005-1.030); Urobilinogen,Urine 0.2 EU/dl (0.2)
[2025-01-07 23:11] LABS: Bacteria,Urine 2+ /lpf; WBC,Urine 50-100 #/hpf (0-3)
[2025-01-07] MEDS: CEFTRIAXONE 1 GM 1 GM in 0.9 % SODIUM CHLORIDE 50 ML IV (23:37)
--- NOTE | 2025-01-07 23:38 | EXP.EVENT.NO ---
Patient's family member called who helps take care of patient. Asked if patient could be admitted in order to be placed. When asking more about why patient needs to be admitted, patient's family states that they need her to be placed because patient's PCP wants her to be placed. When asked why patient's PCP wants her to be placed in nursing facility, they state that because patient has bedsores. It was explained that patient's bedsores require wound care and home health. Patient's family member states that patient has 40 hours of home health a week, beyond that, family able to take care of her and help with her ADLs/caring for her outside of these windows. They have already followed up with case management, primary care, have referral to nursing facility and sometime in the next few days, per family, patient to be likely taken to nursing facility. It was explained that patient does not have admittable diagnosis has appropriate support at home and no reason to be admitted, appropriate outpatient care, etc., family was extremely disgruntled. Patient still discharged home with appropriate outpatient follow-up.
[2025-01-08 00:43] VITALS: BP 142/68; PULSE 94; RESP 20; TEMP 36.8; O2SAT 94
--- NOTE | 2025-01-09 08:36 | PC.NURSE ---
urine culture discussed with , no new orders
--- NOTE | 2025-01-10 09:46 | SW/DCPLANNER ---
I received a consult regarding placement for this patient. I called and spoke w/ this patient regarding placement and she stated that she has been accepted to [facility]. Patient did not have any further needs/questions at this time.
--- NOTE | 2025-01-11 14:05 | PC.NURSE ---
urine culture discussed with dr daniel, no new orders
== END 2025-01-08 00:38 | disposition home or self-care (01) ==
PROVIDERS: Nurse Practitioner; Emergency Provider Emergency Medicine
DX: R11.0 Nausea (principal); L89.90 Pressure ulcer of unspecified site, unspecified stage
CPT/HCPCS: 80053; 81001; 83605; 84145; 85025; 87086; 87088; 87186; 96365; 99283; J0696

== ENCOUNTER 2025-04-01 10:37 | Outpatient (CLI) | payer MEDICARE, MEDICAID, SELFPAY | END 2025-04-01 23:59 | disposition home or self-care (01) | LOC: LAB 10:38 | PROVIDERS: PCP Family Medicine; Visit Provider Family Medicine | DX: N39.0 Urinary tract infection, site not specified (principal); B96.20 Unspecified Escherichia coli [E. coli] as the cause of diseases classified elsewhere; B96.1 Klebsiella pneumoniae [K. pneumoniae] as the cause of diseases classified elsewhere | CPT/HCPCS: 87086; 87088; 87186 ==

== ENCOUNTER 2025-04-27 14:54 | Outpatient (CLI) | payer MEDICARE, MEDICAID, SELFPAY ==
[2025-04-27 18:27] LABS: Basophils # 0.1 K/mm3 (0-0.2); Basophils % 0.7 % (0.1-2.0); Eosinophils # 0.4 Kmm3 (0.0-0.4); Eosinophils % 4.9 % (0.1-12.0); Hematocrit 37.5 % (37.0-47.0); Hemoglobin 11.7 g/dL (12.2-16.2); Immature Granulocytes # 0.02 10^3uL; Immature Granulocytes % 0.2 %; Lymphocytes # 2.3 K/mm3 (0.7-4.5); Lymphocytes % 25.8 % (10-50); Mean Corpuscular HGB Conc 31.2 g/dL (31.8-35.4); Mean Corpuscular Hemoglobin 30.6 pg (27.0-31.2); Mean Corpuscular Volume 98.2 fl (81-99); Mean Platelet Volume 11.3 fl (7.4-10.4); Monocytes # 0.6 K/mm3 (0.1-1.0); Monocytes % 7.1 % (1.7-9.3); Neutrophils # 5.5 K/mm3 (1.8-7.8); Neutrophils % 61.3 % (37.0-80.0); Nucleated Red Blood Cells # 0 10^3/uL; Nucleated Red Blood Cells % 0 %; Platelet Count 332 K/mm3 (142-424); Red Blood Count 3.82 M/mm3 (4.20-5.40); Red Cell Distribution Width 14.8 % (11.5-17.5); Red Cell Distribution Width-SD 53.5 fL
[2025-04-27 19:08] LABS: Alanine Aminotransferase 15 U/L (12-78); Albumin Level 3.7 g/dl (3.5-5.0); Albumin/Globulin Ratio 1.2 (1.1-1.8); Alkaline Phosphatase 143 U/L (38-126); Anion Gap 9.4 mEq/L (5-15); Aspartate Amino Transferase 20 U/L (14-36); Bilirubin,Total 0.4 mg/dl (0.2-1.3); Blood Urea Nitrogen 36 mg/dl (7-17); Calcium 9.5 mg/dl (8.4-10.2); Carbon Dioxide 39 mmol/L (22.0-30.0); Chloride 92 mmol/L (98-107); Cholesterol 187 mg/dl (140-200); Estimated Glomerular Filt Rate 64 ml/min (>60); GFR (African American) 78 ML/MIN (>60); Globulin 3.2 g/dL (1.3-3.2); Glucose 301 mg/dl (74-100); HDL Cholesterol 63 mg/dl (40-60); Potassium 4.4 mmoL/L (3.5-5.1); Sodium 136 mmol/L (136-145); Total Protein,Serum 6.9 g/dl (6.3-8.2); Triglycerides 197 mg/dl (30-150); VLDL Cholesterol 39 mg/dL (0-40)
[2025-04-27 19:26] LABS: Direct LDL Cholesterol 82.66 mg/dL (100-129)
[2025-04-27 19:32] LABS: Hemoglobin A1C 13.1 % (4.0-6.0)
[2025-04-27 19:42] LABS: 25-OH Vitamin D, Total 46.1 ng/mL (30-100)
--- OUTSIDE RECORDS SUMMARY | 2025-04-28 09:30 | XMS_ITS | Referral Summary ---
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
--- OUTSIDE RECORDS SUMMARY | 2025-04-28 09:30 | XMS_ITS ---
Author Organization [facility] Care Team Providers Care Cardiothoracic Physiotherapist Name Role Phone Alondra Yates Unavailable Unavailable Loretta Duarte Unavailable Unavailable Allergies and adverse reactions Code CodeSystem Substance Reaction Severity StartDate Concern Status 8825 RXNORM Protamine Unknown 06/13/2023 active Care Team Name Role Address Phone Organization Dates Alondra Yates PCP [address] [place] [address], [facility] (Office): [facility] 06/13/2023 - 06/30/2023 Loretta Duarte [address] [place] [address] (Office): : [facility] 06/13/2023 - 06/30/2023 Immunizations Immunization Status Vaccine Details Vaccine Code CodeSystem Date Notes TB 2 Step Mantoux Skin Test completed tuberculin skin test; unspecified formulation lotNumber: [id number] expiry: 07/11/2024 Mfg: Tuberculin Purfied Derivative Given 0.1 ml Left Forearm intradermally Step 1 of Multi-step with next step required 98 CVX created date: 06/24/2023 consent date: 06/23/2023 administere d date: 06/24/2023 TB 2 Step Mantoux Skin Test completed tuberculin skin test; unspecified formulation lotNumber: [id number] expiry: 07/11/2024 Mfg: Aplisol 0.1 ml Given 0.1 ml Left Forearm subcutaneously Step 1 of Multi-step with next step required 98 CVX created date: 06/14/2023 consent date: 06/14/2023 administere d date: 06/13/2023 SARS-COV-2 (COVID-19) completed SARS-COV-2 (COVID-19) vaccine, mRNA, spike protein, LNP, preservative free, 100 mcg/0.5mL dose or 50 mcg/0.25mL dose Step 2 of Multi-step with next step required 207 CVX created date: 06/16/2023 administere d date: 11/07/2021 Moderna SARS-COV-2 (COVID-19) completed SARS-COV-2 (COVID-19) vaccine, mRNA, spike protein, LNP, preservative free, 30 mcg/0.3mL dose Step 1 of Multi-step with next step required 208 CVX created date: 06/16/2023 administere d date: 11/23/2020 Pfizer Mental Status Section Date Assessment Total Score Description 06/30/2023 BIMS 15 cognitively int act CAM 0 No delirium ind icated PHQ-9 13 moderate depres fannie 06/16/2023 BIMS 15 cognitively int act CAM 0 No delirium ind icated PHQ-9 13 moderate depres fannie Problems Problem # Description Date of onset Resolved Date Code CodeSystem Concern Status 1 ABNORMAL RESULT OF OTHER CARDIOVASCULAR FUNCTION STUDY 06/13/[address] active 2 ACQUIRED ABSENCE OF LEFT LEG BELOW KNEE 06/13/[address] active 3 ACUTE ON CHRONIC SYSTOLIC (CONGESTIVE) HEART FAILURE 06/13/[address] active 4 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 06/13/[address] active 5 ANXIETY DISORDER, UNSPECIFIED 06/13/[address] active 6 ATHEROSCLEROTIC HEART DISEASE OF [place] CORONARY ARTERY WITHOUT ANGINA PECTORIS 06/13/[address] active 7 CEREBRAL INFARCTION, UNSPECIFIED 06/13/[address] active 8 CHRONIC OBSTRUCTIVE PULMONARY DISEASE, UNSPECIFIED 06/13/[address] active 9 DEPRESSION, UNSPECIFIED 06/13/[address] active 10 ESSENTIAL (PRIMARY) HYPERTENSION 06/13/[address] active 11 FLACCID HEMIPLEGIA AFFECTING RIGHT DOMINANT SIDE 06/13/[address] active 12 HEMIPLEGIA, UNSPECIFIED AFFECTING LEFT NONDOMINANT SIDE 06/13/[address] active 13 HYPERLIPIDEMIA, UNSPECIFIED 06/13/[address] active 14 HYPERTENSIVE HEART DISEASE WITH HEART FAILURE 06/13/[address] active 15 HYPOKALEMIA 06/13/[address] active 16 HYPOTHYROIDISM, UNSPECIFIED 06/13/[address] active 17 CLOTHES MODEL (CURRENT) USE OF INSULIN 06/13/[address] active 18 LOW BACK PAIN, UNSPECIFIED 06/13/[address] active 19 NICOTINE DEPENDENCE, UNSPECIFIED, UNCOMPLICATED 06/13/[address] active 20 OTHER REDUCED MOBILITY 06/13/[address] active 21 OTHER SPECIFIED HEALTH STATUS 06/13/[address] active 22 TYPE 2 DIABETES MELLITUS WITH DIABETIC NEUROPATHY, UNSPECIFIED 06/13/[address] active 23 TYPE 2 DIABETES MELLITUS WITH HYPERGLYCEMIA 06/13/[address] active 24 TYPE 2 DIABETES MELLITUS WITH OTHER DIABETIC KIDNEY COMPLICATION 06/13/[address] active 25 TYPE 2 DIABETES MELLITUS WITHOUT COMPLICATIONS 06/13/[address] active 26 URINARY TRACT INFECTION, SITE NOT SPECIFIED 06/13/[address] [employer] [address] active Reason for Referral No Reasons for Referral Entered Social History Social History Observation Description Start Date End Date Code Code System Current Smoking Status Tobacco smoking consumption unknown 052364319 SNOMED CT Sex Assigned At Female 1965 54560-0 [facility] Gender Identity Vital Signs Code Code System Vitals Name Values and Units Timing Information 57510-0 [facility] Pain Level Value=3.0 06/30/2023 2339-0 [facility] Blood Sugar Iyufm=187.0 Units=mg/dL 06/30/2023 11805-4 [facility] O2 % BldC Oximetry Value=97.0 Units= % 06/30/2023 61341-0 [facility] Weight Zwkzo=907.0 Units=Lbs 9279-1 [facility] Respiratory Rate Value=20.0 Units=/m in 06/19/2023 8462-4 [facility] Blood Pressure-Diastolic Value=68 Un its=mmHg 06/19/2023 8480-6 [facility] Blood Pressure-Systolic Muyxr=093 Un its=mmHg 06/19/2023 8310-5 [facility] Body Temperature Value=97.6 Units= F 06/19/2023 8867-4 [facility] Heart rate Value=78.0 Units=/min 08/2023 8302-2 [facility] Height Value=69.0 Units=Inches 06/14/2023
--- OUTSIDE RECORDS SUMMARY | 2025-04-28 09:31 | XMS_ITS ---
Author Organization [facility] Care Team Providers Care Outgoing Inspector Name Role Phone Sameer Patterson Unavailable Unavailable Allergies and adverse reactions Code CodeSystem Substance Reaction Severity StartDate Concern Status 8825 RXNORM Protamine Unknown 03/07/2022 active Care Team Name Role Address Phone Organization Dates Sameer Patterson PCP [address], [place], [address], [place] (Office): : [facility] 03/07/2022 - 05/12/2022 Goals Section Goals Description Status Target Date Goal is slow gradual weight loss, 1-3#/month, closer to IBWR. Free from s/s of dehydration. Random blood sugar of 185 or less, fasting blood sugar of 165 or less. Intact, non-reddened skin. Active 07/04/2022 Resident and Family's wishes will be honored. Ac tive 07/04/2022 Resident will not show a dec line in psychosocial well-being or experience adverse effects - through next care review. Resident will not exhibit s/sx of COVID-19, - through next care review. Active 07/04/[address] goal Active 07/04/2022 Vicky will maintain/improve current level of mobility: bed mobility,transfers - through review date. Active 07/04/2022 Vicky will be free from s/s x of complications of hemiplegia - through review date. Active 07/04/2022 Vicky will be free of any d iscomfort or adverse side effects from pain medication - through the review date. Active 07/04/2022 Vicky will be free of any d iscomfort or adverse side effects of diuretic therapy - through the review date. Active 07/04/2022 Vicky will be free of falls - through the review date. Active 07/04/2022 Vicky will be free of infec tion, pain or bleeding in the oral cavity - through review date. Active 07/04/2022 Vicky will be/remain free o f drug related complications, including movement disorder, discomfort, hypotension, constipation/impaction or cognitive/behavioral - impairment through review date. Active 07/04/2022 Vicky will have fewer episo maria luisa of false allegations - by review date. Active 07/04/2022 Vicky will have intact skin , free of redness, blisters or discoloration - by/through review date. Active 07/04/2022 Vicky will have no complica tions related to diabetes - through the review date. Active 07/04/2022 Vicky will have stable mood state AEB: Content, calm appearance, no s/sx of depression, anxiety or sadness - through the review date. Active 07/04/2022 Vicky will maintain/improve current level of function in: Dressing, Toilet Use and Personal Hygiene; ADLs - through the review date. Active 07/04/2022 Vicky will maintain/return to normal breathing pattern as evidenced by normal respirations, normal skin color, and regular respiratory rate/pattern - through the review date. Active 07/04/2022 Vicky will remain free from discomfort, complications or s/sx related to gastro-intestinal alterations - through review date. Active 07/04/2022 Vicky will remain free of c omplications related to PVD - through review date. Active 07/04/2022 Vicky will reside and receive care at [facility] Act ve 07/04/2022 Vicky will show evidence of adjustment to new senior care AEB: participating in activities of choice - through the review date. Active 07/04/2022 Vicky will voice a level of comfort - through the review date. Active 07/04/2022 Vicky will) be free from s/ sx of complications of cardiac problems - through the review date. Active 07/04/2022 Vicky's Thyroid function te sts will be within normal limits - through the review date. Active 07/04/2022 Vicky's risk for septicemia will be minimized/prevented via prompt recognition and treatment of symptoms of UTI - through the review date. Active 07/04/2022 Immunizations Immunization Status Vaccine Details Vaccine Code CodeSystem Date Notes Pneumovax Dose 1 completed pneumococcal polysaccharide vaccine, 23 valent lotNumber: [id number] expiry: 12/10/2023 Mfg: merck sharp & dohme amanda. Given 0.5 ml Right Deltoid intramuscularly 33 CVX created date: 05/06/2022 consent date: 05/06/2022 administere d date: 05/06/2022 TB 1 Step Mantoux (PPD) completed tuberculin skin test; unspecified formulation lotNumber: [id number] expiry: 03/01/2023 Mfg: sanofi pasteur limited Given 0.1 ml Right Forearm subcutaneously 98 CVX created date: 03/07/2022 consent date: 03/07/2022 administere d date: 03/07/2022 TB 2 Step Mantoux Skin Test completed tuberculin skin test; unspecified formulation lotNumber: [id number] expiry: 03/01/2023 Mfg: Sandfi-pasteur Given 0.1 ml Left Forearm intradermally Step 1 of Multi-step 98 CVX created date: 03/14/2022 consent date: 03/14/2022 administere d date: 03/14/2022 Mental Status Section Date Assessment Total Score Description 03/15/2022 BIMS 14 cognitively int act CAM 0 No delirium ind icated PHQ-9 06 mild depression Problems Problem # Description Date of onset Resolved Date Code CodeSystem Concern Status 1 ACQUIRED ABSENCE OF LEFT LEG BELOW KNEE 03/07/[address] active 2 ANXIETY DISORDER, UNSPECIFIED 03/07/[address] active 3 ATHEROSCLEROTIC HEART DISEASE OF [place] CORONARY ARTERY WITHOUT ANGINA PECTORIS 03/07/[address] active [address] CARDIOMYOPATHY, UNSPECIFIED 03/07/[address] active 5 CHRONIC OBSTRUCTIVE PULMONARY DISEASE, UNSPECIFIED 03/07/[address] active 6 DEPRESSION, UNSPECIFIED 03/07/[address] active 7 DIARRHEA, UNSPECIFIED 03/07/[address] active 8 DYSPHAGIA, OROPHARYNGEAL PHASE 03/07/[address] active 9 ESSENTIAL (PRIMARY) HYPERTENSION 03/07/[address] active 10 HEART FAILURE, UNSPECIFIED 03/07/[address] active 11 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 SIDE 03/07/[address] active 12 HYPOTHYROIDISM, UNSPECIFIED 03/07/[address] active 13 ZOOKEEPER (CURRENT) USE OF INSULIN 03/07/[address] active 14 MIXED HYPERLIPIDEMIA 03/07/[address] active 15 MORBID (SEVERE) OBESITY DUE TO EXCESS CALORIES 03/07/[address] active 16 MUSCLE WEAKNESS (GENERALIZED) 03/07/[address] active 17 NONINFECTIVE GASTROENTERITIS AND COLITIS, UNSPECIFIED 03/07/[address] active 18 OTHER REDUCED MOBILITY 03/07/[address] active 19 PERIPHERAL VASCULAR DISEASE, UNSPECIFIED 03/07/[address] active 20 TYPE 2 DIABETES MELLITUS WITH DIABETIC NEUROPATHY, UNSPECIFIED 03/07/[address] active 21 TYPE 2 DIABETES MELLITUS WITH UNSPECIFIED COMPLICATIONS 03/07/[address] active 22 UNSPECIFIED SEQUELAE OF CEREBRAL INFARCTION 03/07/[address] active 23 WEAKNESS 03/07/[address] active Reason for Referral No Reasons for Referral Entered Social History Social History Observation Description Start Date End Date Code Code System Current Smoking Status Tobacco smoking consumption unknown 476935922 SNOMED CT Sex Assigned At Female 1965 81054-6 [facility] Gender Identity Vital Signs Code Code System Vitals Name Values and Units Timing Information 56007-1 [facility] Weight Zredu=013.7 Units=Lbs 15320-2 [facility] Pain Level Value=8.0 05/07/2022 2339-0 [facility] Blood Sugar Edvov=639.0 Units=mg/dL 05/07/2022 8310-5 [facility] Body Temperature Value=98.1 Units= F 05/07/2022 05083-7 [facility] O2 % BldC Oximetry Value=94.0 Units= % 05/07/2022 9279-1 [facility] Respiratory Rate Value=18.0 Units=/m in 05/05/2022 8462-4 [facility] Blood Pressure-Diastolic Value=60 Un its=mmHg 05/05/2022 8480-6 [facility] Blood Pressure-Systolic Agdzy=841 Un its=mmHg 05/05/2022 8867-4 [facility] Heart rate Value=70.0 Units=/min 8302-2 [facility] Height Value=71.0 Units=Inches 03/14/2022
--- OUTSIDE RECORDS SUMMARY | 2025-04-28 09:31 | XMS_ITS | Clinical Summary ---
Author Organization Healthcare Address [address] [place] [address] Care Team Providers Care Tool And Die Manager Name Role Phone Sameer Patterson MD Primary Care Provider [phone] Allergies No known active allergies Medications albuterol 108 (90 Base) MCG/ACT inhaler Inhale 2 puffs 4 (four) times a day. Active cholecalciferol (Vitamin D-3) 50 MCG (2000 UT) capsule Take 1 capsule (2,000 Units) by mouth 1 (one) time each day. Active DULoxetine (Cymbalta) [address] capsule Take 1 capsule (60 mg) by mouth 1 (one) time each day. Do not crush or chew. Active furosemide (Lasix) 40 MG tablet Take 1 tablet (40 mg) by mouth 1 (one) time each day. Active gabapentin (Neurontin) 600 MG tablet Take 1 tablet (600 mg) by mouth 4 (four) times a day. Active HYDROcodone-acetam inophen (Coy) 7.5-325 MG tablet Take 1 tablet (7.5 mg of hydrocodone) by mouth every 6 (six) hours. Active NovoLIN 70/30 FlexPen (70-30) 100 UNIT/ML injection pen Inject 35 Units under the skin 1 (one) time each day in the morning. And 15 units Q evening Active levothyroxine (Synthroid, Levoxyl) 150 MCG tablet Take 1 tablet (150 mcg) by mouth 1 (one) time each day before breakfast. Active menthol-zinc oxide (Calmoseptine - Risamine) 0.44-20.625 % ointment Apply 1 Application topically 4 (four) times a day if needed for irritation. Active nystatin (Mycostatin) 011384 UNIT/GM powder Apply 1 Application topically 3 (three) times a day. Active ondansetron ODT (Zofran-ODT) 4 MG disintegrating tablet Take 1 tablet (4 mg) by mouth every 8 (eight) hours if needed for nausea or vomiting. Active Semaglutide (OZEMPIC, 0.25 OR 0.5 MG/DOSE, SC) Inject 0.5 mg under the skin 1 (one) time per week. Active senna (Senokot) 8.6 MG tablet Take 2 tablets (17.2 mg) by mouth every night. Active busPIRone (Buspar) 15 MG tablet Take 1 tablet (15 mg) by mouth 3 (three) times a day if needed. Active clonazePAM (KlonoPIN) 0.5 MG tablet Take 1 tablet (0.5 mg) by mouth 3 (three) times a day if needed for anxiety. Active lisinopril 20 MG tablet Take 1 tablet (20 mg) by mouth 1 (one) time each day. 30 tablet 2 04/09/20 23 Active atorvastatin (Lipitor) 80 MG tablet Take 1 tablet (80 mg) by mouth 1 (one) time each day. 30 tablet 2 04/09/20 23 Active rivaroxaban (Xarelto) 2.5 MG tablet Take 1 tablet (2.5 mg) by mouth 2 (two) times a day. Take with food. 60 tablet 2 04/08/20 23 Active aspirin 81 MG EC tablet Take 1 tablet (81 mg) by mouth 1 (one) time each day. 01/05/20 24 Active Symbicort 160-4.5 MCG/ACT inhaler Inhale 2 puffs 2 (two) times a day. Active carvedilol (Coreg) 3.125 MG tablet Take 1 tablet (3.125 mg) by mouth 2 (two) times a day with meals. Active desvenlafaxine (Pristiq) 100 MG 24 hr tablet Take 1 tablet (100 mg) by mouth 1 (one) time each day. 07/02/20 24 Active meloxicam (Mobic) 15 MG tablet Take 1 tablet (15 mg) by mouth 1 (one) time each day. 07/29/20 24 Active mirtazapine (Remeron) 15 MG tablet Take 1 tablet (15 mg) by mouth every night. 07/02/20 Active QUEtiapine (SEROquel) 100 MG tablet Take 1 tablet (100 mg) by mouth every night. 08/18/20 24 Active Active Problems Problem Noted Date Diagnosed Date Obesity (BMI 35.0-39.9 without comorbidity) 08/10 Acute ischemic stroke 04/04/2023 Family History Medical History Relation Name Comments Diabetes type II Father Hypertension Father Other cancer Mother Relation Name Status Comments Father Mother Social History Tobacco Use Types Packs/Day Years Used Date Smoking Tobacco: Former Cigarettes Q uit: 11/10/2023 Passive Smoke Exposure: Current Tobacco Cessation:Counseling Given: Not Answered Comments:Cigarette smoker one half pack a day or less Alcohol Use Standard Drinks/Week Comments Never 0 (1 standard drink = 0.6 oz pur e alcohol) PHQ-2 Answer Date Recorded Patient Health Questionnaire-2 Score 4 08/24/2024 PHQ-9 Answer Date Recorded Patient Health Questionnaire-9 Score 19 08/24/2024 Comments No Sex and Gender Information Value Date Recorded Sex Assigned at Not on file Legal Sex Female 8:50 PM EDT Gender Identity Not on file Sexual Orientation Not on file Last Filed Vital Signs Vital Sign Reading Time Taken Comments Blood Pressure 163/81 08/24/2024 1:34 PM EDT Pulse 65 08/24/2024 1:34 PM EDT Temperature 36.8 C (98.3 F) 04/08/2023 11:58 AM EDT Respiratory Rate 18 08/24/2024 1:34 PM EDT Oxygen Saturation 93% 08/24/2024 1:34 PM EDT Inhaled Oxygen Concentration - - Weight 115 kg (253 lb 6.4 oz) 08/24/2024 1:34 PM EDT Height 175.3 cm (5' 9 ) 08/24/2024 1:34 PM EDT Body Mass Index 37.42 08/24/2024 1:34 PM EDT Plan of Treatment Health Maintenance Due Date Last Done Comments [facility]-Medicare Annual Wellness (AWV) 1965 [facility]-/Child/Adol SDOH Screenings 1965 [facility]- SDOH Screenings 1983 [facility]-Adult SDOH Screenings 1983 [facility]-DTaP,Tdap,and Td Vaccines (1 - Tdap) 1984 [facility]-Hepatitis B Vaccines (1 of 3 - 19+ 3-dose series) 1984 [facility]-Pap Smear 1986 [facility]-Cervical Cancer Screening 1995 [facility]-HPV/Cotest [facility] Colonography 2010 Colonoscopy 2010 [facility]-DNA 2010 FIT 2010 FOBT 2010 Sigmoidoscopy 2010 [facility]-Colorectal Cancer Screening 2010 [facility]-Breast Cancer Screening 2015 [facility]-Zoster Vaccines (1 of 2) 2015 [facility]-Pneumococcal Vaccine: 50+ Years (2 of 2 - PCV) 05/06/2023 05/06/2022 [id number] Vaccine (3 - season) 2024 11/07/2021, 11/23/2020 [facility]-Influenza Vaccine (Season Ended) 2025 06/10/2020 [facility]-Depression Screening 08/24/2025 08/24/2024, 08/10 [facility]-Diabetes: Hemoglobin A1C Discontinued 04/04/2023, 04/04/2020, 10/25/2019, Additional history exists [facility]-HIV Screening Completed 04/04/2023 [facility]-Hepatitis C Screening Completed 2022, 04/04/2020, 10/24/2019 [facility]-Obesity Intervention Completed 08/24/2024 HPV Vaccines Aged Out No longer eligi ble based on patient's age to complete this topic [facility]-HIB Vaccines Aged Out No longer e ligible based on patient's age to complete this topic [facility]-Hepatitis A Vaccines Aged Out No longer eligible based on patient's age to complete this topic [facility]-IPV Vaccines Aged Out No longer e ligible based on patient's age to complete this topic [facility]-Rotavirus Vaccines Aged Out No lo nger eligible based on patient's age to complete this topic Procedures Procedure Name Priority Date/Time Associated Diagnosis Comments HEMOGLOBIN A1C Routine 04/04/2023 4:26 AM EDT HEPATITIS C ANTIBODY - ED W/REFLEX TO HCV QUANT PCR STAT 04/04/2023 4:05 AM EDT HIV 1/2 ANTIBODY/ANTIGEN SCREEN WITH REFLEX TO HIV I/II DIFFERENTIATION STAT 04/04/2023 4:05 AM EDT from Last 3 Months or Most Recently Relevant to Health Maintenance Results * (ABNORMAL) Hemoglobin A1c (04/04/2023 4:26 AM EDT) Hemoglobin A1c 8.6(H) <5.7 % 04/04/2023 5:32 AM EDT [facility] Blood Venous blood specimen / Unknown Venipuncture / Unknown 04/04/2023 4:26 AM EDT 04/04/2023 4:34 AM EDT Narrative [facility] - 04/04/2023 5:32 AM EDT HA1C Interpretive Data: Diagnosis of Diabetes: Diabetic > or = 6.5% Pre-diabetic 5.7 to 6.4% Non-diabetic < or = 5.6% Glycemic Targets for Type I and Type II Diabetics: Non- Adults <7.0% Adults <6.0% Children and Adolescents <7.5% Source: [employer]. Standards of medical care in diabetes,2017. Diabetes Care.2017:40 (suppl 1):S1-S135. HbA1c assay performed by an ion-exchange chromatography method that is certified traceable to the DCCT. us Cece Braun MD LAB BLOOD ORDERABLES Final Result [facility] [address] [place] [id number] * HIV 1 & 2 Antibody/Antigen Screen (04/04/2023 4:05 AM EDT) HIV 1 & 2 Antibody/Antigen Screen Non Reactive Non Reactive 04/04/2023 4:59 AM EDT [facility] Comment:Screening for HIV 1 & 2 antibodies, and P24 antigen is NONREACTIVE. No confirmatory testing is required. Blood Venous blood specimen / Unknown Venipuncture / Unknown 04/04/2023 4:05 AM EDT 04/04/2023 4:17 AM EDT Howie Abdul MD LAB BLOOD ORDERABLES Final Re sult [facility] [address] [place] [address] * Hepatitis C Antibody - ED (04/04/2023 4:05 AM EDT) Hepatitis C Antibody Negative Negative 04/04/2023 5:07 AM EDT [facility] Blood Venous blood specimen / Unknown Venipuncture / Unknown 04/04/2023 4:05 AM EDT 04/04/2023 4:17 AM EDT Howie Abdul MD LAB BLOOD ORDERABLES Final Re sult Performing Organization Address City/[facility]/ZIP Co de Phone Number [facility] [address] [place] [address] from Last 3 Months or Most Recently Relevant to Health Maintenance Additional Health Concerns Infection Onset Date 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 Yes Patient has decision-making capacity? No Healthcare Surrogate: Adult child of the patient Name of Healthcare Surrogate: Will Squires son/ POA * DNR - Ok to intubate Date Activated Date Inactivated Comments 04/04/2023 5:34 AM 04/04/2023 3:30 PM Question Answer Comments DNR determined on/before admission date? Yes Patient has decision-making capacity? Yes * Full Code Date Activated Date Inactivated Comments 04/04/2023 4:16 AM 04/04/2023 5:34 AM Question Answer Comments Patient has decision-making capacity? Yes Care Teams Tool And Die Manager Relationship Specialty Start Date End Date Sameer Patterson MD [address] [place] [id number] PCP - General 03/23/21
--- OUTSIDE RECORDS SUMMARY | 2025-04-28 09:31 | XMS_ITS | Clinical Summary ---
Author Organization [facility] Address [address] [place] [address] Care Team Providers Care Record Systems Analyst Name Role Phone Sameer Patterson MD Primary Care Provider [phone] Social History Tobacco Use Types Packs/Day Years Used Date Smoking Tobacco: Never Assessed Comments Unknown Sex and Gender Information Value Date Recorded Sex Assigned at Not on file Legal Sex Female 2:22 PM RESIDENTIAL ADVISOR Gender Identity Not on file Sexual Orientation Not on file Plan of Treatment Not on file Insurance MEDICARE PART A B MEDICAID OF [place] Care Teams Record Systems Analyst Relationship Specialty Start Date End Date Sameer Patterson MD [address] [place] [address] [place] [id number] PCP - General Family Medicine 01/02/23
== END 2025-04-27 23:59 | disposition home or self-care (01) ==
LOC: LAB.DROPOF 04-28 09:27
PROVIDERS: PCP Family Medicine; Visit Provider Family Medicine
DX: E55.9 Vitamin D deficiency, unspecified (principal); I10 Essential (primary) hypertension; E11.9 Type 2 diabetes mellitus without complications
CPT/HCPCS: 80053; 80061; 82306; 83036; 84443; 85025

== ENCOUNTER 2025-08-18 15:57 | Outpatient (CLI) | payer MEDICARE, MEDICAID, SELFPAY ==
[2025-08-18 20:29] LABS: Hematocrit 40.5 % (37.0-47.0); Hemoglobin 12.5 g/dL (12.2-16.2); Immature Granulocytes % 0.2 %; Mean Corpuscular HGB Conc 30.9 g/dL (31.8-35.4); Mean Corpuscular Hemoglobin 29.4 pg (27.0-31.2); Mean Corpuscular Volume 95.3 fl (81-99); Nucleated Red Blood Cells % 0 %; Platelet Count 312 K/mm3 (142-424); Red Blood Count 4.25 M/mm3 (4.20-5.40); Red Cell Distribution Width-SD 47.8 fL; White Blood Count 9.5 K/mm3 (4.8-10.8)
[2025-08-18 21:12] LABS: Hemoglobin A1C 11.5 % (4.0-6.0)
[2025-08-18 21:33] LABS: Alanine Aminotransferase 20 U/L (12-78); Albumin Level 3.9 g/dl (3.5-5.0); Albumin/Globulin Ratio 1.3 (1.1-1.8); Alkaline Phosphatase 158 U/L (38-126); Anion Gap 15.8 mEq/L (5-15); Aspartate Amino Transferase 24 U/L (14-36); Bilirubin,Total 0.5 mg/dl (0.2-1.3); Blood Urea Nitrogen 24 mg/dl (7-17); Calcium 9.3 mg/dl (8.4-10.2); Carbon Dioxide 34 mmol/L (22.0-30.0); Chloride 91 mmol/L (98-107); Cholesterol 174 mg/dl (140-200); Creatinine,Serum 0.80 mg/dl (0.52-1.04); Estimated Glomerular Filt Rate 73 ml/min (>60); GFR (African American) 89 ML/MIN (>60); Globulin 3.0 g/dL (1.3-3.2); Glucose 262 mg/dl (74-100); HDL Cholesterol 46 mg/dl (40-60); Potassium 3.8 mmoL/L (3.5-5.1); Sodium 137 mmol/L (136-145); Total Protein,Serum 6.9 g/dl (6.3-8.2); Triglycerides 232 mg/dl (30-150)
--- OUTSIDE RECORDS SUMMARY | 2025-08-19 02:11 | XMS_ITS | Clinical Summary ---
Author Organization [facility] Address [address] [place] [address] Care Team Providers Care Second Chef Name Role Phone Suzi Burns Primary Care Provider [phone] Allergies No known active allergies Medications metFORMIN (GLUCOPHAGE) 1000 MG tablet Take 1,000 mg by mouth 2 (Two) Times a Day With Meals. Active Atorvastatin Calcium (LIPITOR PO) Take by mouth. Active amLODIPine (NORVASC) 5 MG tablet Take 5 mg by mouth Daily. 2 07/14/2019 Active busPIRone (BUSPAR) 5 MG tablet Take 5 mg by mouth 3 (Three) Times a Day. 2 08/12/2019 Active carvedilol (COREG) 6.25 MG tablet TAKE 1 TABLET BY MOUTH TWICE A DAY WITH A MEAL/FOOD 5 07/16/2019 Active DULoxetine (CYMBALTA) 60 MG capsule Take 60 mg by mouth Daily. 2 08/15/2019 Active gabapentin (NEURONTIN) 600 MG tablet Take 600 mg by mouth 3 (Three) Times a Day. 2 08/20/2019 Active glipizide (GLUCOTROL) 10 MG tablet Take 10 mg by mouth 2 (Two) Times a Day. 0 06/17/2019 Active HUMULIN 70/30 KWIKPEN (70-30) 100 UNIT/ML suspension pen-injector INJECT 10 UNITS UNDER THE SKIN TWICE DAILY 2 07/26/2019 Active levothyroxine (SYNTHROID, LEVOTHROID) 150 MCG tablet Take 150 mcg by mouth Daily. 2 07/26/2019 Active BD ULTRA-FINE PEN NEEDLES 29G X 12.7MM misc USE DIRECTED TO INJECT INSULIN 2 07/26/2019 Active losartan-hydroc hlorothiazide (HYZAAR) 100-25 MG per tablet Take 1 tablet by mouth Daily. 6 07/15/2019 Active lovastatin (MEVACOR) 20 MG tablet Take 20 mg by mouth Daily. 0 06/17/2019 Active pioglitazone (ACTOS) 30 MG tablet Take 30 mg by mouth Daily. 0 06/17/2019 Active Budesonide-Form oterol Fumarate (SYMBICORT IN) Inhale. Activ e albuterol sulfate HFA 108 (90 Base) MCG/ACT inhaler Inhale 2 puffs Every 4 (Four) Hours As Needed for Wheezing. Active azithromycin (ZITHROMAX Z-RIK) 250 MG tablet Take 2 tablets the first day, then 1 tablet daily for 4 days. 6 tablet 09/13/2019 Active predniSONE (DELTASONE) 10 MG tablet ////12/11 As directed PO 21 tablet 09/13/2019 Active Active Problems No known active problems Social History Tobacco Use Types Packs/Day Years Used Date Smoking Tobacco: Every Day Cigarettes Tobacco Cessation:Ready to Q uit: No; Counseling Given: No Abuse Screen Answer Date Recorded Unsafe at Home or Work/School Not on file Feels Threatened by Someone? Not on file 09/2023 Does Anyone Keep You from Co ntacting Others or Doint Things Outside the Home? Not on file 08/20/2023 Physical Sign of Abuse Present Not on file 1 Housing Stability Answer Date Recorded Current Living Arrangements Not on file 08/10 Potentially Unsafe Housing Conditions Not on ben e 08/20/2023 Family and Community Support Answer Aiden e Recorded Help with Day-to-Day Activities Not on file 08/20/2023 Lonely or Isolated Not on file 08/20/2023 Employment Answer Date Recorded Do you want help finding or keeping work or a torey b? Not on file 08/20/2023 Disabilities Answer Date Recorded Concentrating, Remembering, or Making Decisions Difficulty Not on file 08/20/2023 Doing Errands Independently Difficulty Not on fi le 08/20/2023 Education Answer Date Recorded Help with school or training? Not on file Preferred Language Not on file 08/20/2023 Comments No Sex and Gender Information Value Date Recorded Sex Assigned at Not on file Legal Sex Female 12:10 PM EDT Gender Identity Not on file Sexual Orientation Not on file Last Filed Vital Signs Vital Sign Reading Time Taken Comments Blood Pressure 134/98 09/13/2019 10:03 AM EST Pulse 92 09/13/2019 10:03 AM EST Temperature 36.9 C (98.5 F) 09/13/2019 10:03 AM EST Respiratory Rate 16 09/13/2019 10:03 AM EST Oxygen Saturation 92% 09/13/2019 10:03 AM EST Inhaled Oxygen Concentration - - Weight 125 kg (276 lb) 09/13/2019 10:03 AM EST Height 175.3 cm (5' 9 ) 09/13/2019 10:03 AM EST Body Mass Index 40.76 09/13/2019 10:03 AM EST Plan of Treatment Health Maintenance Due Date Last Done Comments Annual Gynecologic Pelvic and Breast Exam 1965 TDAP/TD VACCINES (1 - Tdap) 1984 MAMMOGRAM 2005 COLOGUARD 2010 COLON CANCER SCREENING 5 YEAR SIGMOIDOSCOPY 2010 COLONOSCOPY 2010 [address]AL CANCER SCREENING 2010 CT COLONOGRAPHY 2010 FECAL OCCULT BLOOD TEST 2010 FIT Testing (1 year) 2010 Pneumococcal Vaccine 50+ (1 of 1 - PCV) 2015 ZOSTER VACCINE (1 of 2) 2015 ANNUAL PHYSICAL 07/07/2017 HEPATITIS C SCREENING 07/07/2017 INFLUENZA VACCINE 06/10/2025 Care Teams Second Chef Relationship Specialty Start Date End Date Suzi Burns PA PCP - General Physician Ingot Stripper 07/07/17
--- OUTSIDE RECORDS SUMMARY | 2025-08-19 02:11 | XMS_ITS | Clinical Summary ---
Author Organization [facility] Address [address] [place] [address] Care Team Providers Care Airplane Cleaner Name Role Phone Sameer Patterson MD Primary Care Provider [phone] Allergies No known active allergies Medications albuterol [...] (four) times a day. Active HYDROcodone-acetam inophen ([place]) 7.5-325 MG tablet Take 1 tablet (7.5 [...] if needed for irritation. Active nystatin (Mycostatin) 589127 UNIT/GM powder Apply 1 Application topically 3 [...] Health Maintenance Due Date Last Done Comments [facility]Medicare Annual Wellness (AWV) 1965 [facility]-Infant/Child/Adol SDOH Screenings 1965 [facility]- SDOH Screenings 1983 [facility]-Adult SDOH Screenings 1983 [facility]-DTaP,Tdap,and Td Vaccines (1 - Tdap) 1984 [facility]-Hepatitis B Vaccines (1 of 3 - 19+ 3-dose series) 1984 [facility]-Pap Smear 1986 [facility]-Cervical Cancer Screening 1995 [facility]-HPV/Cotest 1995 CT Colonography 2010 Colonoscopy 2010 FIT-DNA 2010 FIT 2010 FOBT 2010 Sigmoidoscopy 2010 [facility]-Colorectal Cancer Screening 2010 [facility]-Breast Cancer Screening 2015 [facility]-Zoster Vaccines (1 of 2) 2015 [facility]-[id number]-13 Vaccine (3 - Mixed Product risk series) 12/05/2021 11/07/2021, 11/23/2020 [facility]-Pneumococcal Vaccine: 50+ Years (2 of 2 - PCV) 05/06/2023 05/06/2022 [facility]-Influenza Vaccine (#1) 2025 06/10/2020 [facility]-Depression Screening 08/24/2025 08/24/2024, 08/10 [...] Adults <6.0% Children and Adolescents <7.5% Source: [place] [employer]. Standards of medical care in diabetes,2017. Diabetes Care.2017:40 (suppl 1):S1-S135. HbA1c assay performed by an ion-exchange chromatography method that is certified traceable to the DCCT. us Cece Braun MD LAB BLOOD ORDERABLES Final Result [facility] [address] [place] [id number] * HIV 1 & 2 Antibody/Antigen Screen [...] Final Re sult [facility] [address] [place] [address] * Hepatitis C Antibody - ED (04/04/2023 4:05 AM EDT) Hepatitis C Antibody Negative Negative 04/04/2023 5:07 AM EDT HEALTHCARE LAB Blood Venous blood specimen / Unknown Venipuncture / Unknown 04/04/2023 4:05 AM EDT 04/04/2023 4:17 AM EDT Howie Abdul MD LAB BLOOD ORDERABLES Final Re sult [facility] [address] [place] [address] from Last 3 Months or Most Recently [...] Patient has decision-making capacity? Yes Care Teams Airplane Cleaner Relationship Specialty Start Date End Date Sameer Patterson MD [address] [place] [id number] PCP - General 03/23/21
--- OUTSIDE RECORDS SUMMARY | 2025-08-19 02:11 | XMS_ITS | Referral Summary ---
Author Organization [employer] ([place], [place], [place], [place]) Address [address] [place] [address] Care Team Providers Care Business Intelligence Administrator Name Role Phone Sameer Patterson MD Primary Care Provider [phone] Social History Tobacco Use Types Packs/Day Years Used Date Smoking Tobacco: Never Assessed Comments Unknown Sex and Gender Information Value Date Recorded Sex Assigned at Not on file Legal Sex Female 2:22 PM CUFF SETTER Gender Identity Not on file Sexual Orientation Not on file Plan of Treatment Not on file Insurance MEDICARE PART A B MEDICAID OF [place] Care Teams Business Intelligence Administrator Relationship Specialty Start Date End Date Sameer Patterson MD [address] [place] [phone] PCP - General Family Medicine 01/02/23
--- OUTSIDE RECORDS SUMMARY | 2025-08-19 02:11 | XMS_ITS | Clinical Summary ---
Author Organization [employer] ([place], [place], [place], [place]) Address [address] [place] [address] Care Team Providers Care Pipe Stem Aligner Name Role Phone Sameer Patterson MD Primary Care Provider [phone] Social History Tobacco Use Types Packs/Day Years Used Date Smoking Tobacco: Never Assessed Comments Unknown Sex and Gender Information Value Date Recorded Sex Assigned at Not on file Legal Sex Female 2:22 PM FRAME CATCHER Gender Identity Not on file Sexual Orientation Not on file Plan of Treatment Not on file Insurance MEDICARE PART A B MEDICAID OF [place] Care Teams Pipe Stem Aligner Relationship Specialty Start Date End Date Sameer Patterson MD [address] [place] [phone] PCP - General Family Medicine 01/02/23
== END 2025-08-18 23:59 ==
LOC: LAB.DROPOF 08-19 02:09
PROVIDERS: PCP Family Medicine; Visit Provider Family Medicine
DX: J44.9 Chronic obstructive pulmonary disease, unspecified (principal); E11.9 Type 2 diabetes mellitus without complications
CPT/HCPCS: 80053; 80061; 83036; 85025